=== PATIENT | male | born 1950 | race Caucasian/White ===

== ENCOUNTER → 2023-04-06 17:00 | Outpatient (REF) | payer OTHER, SELFPAY ==
[2023-04-06 19:19] LABS: % Basophils 0.4 % (0-2); % Eosinophils 1.3 % (0-6); % Immature Granulocytes 0.2 % (0-0.5); % Lymphocytes 15.2 % (20.5-51.1); % Monocytes 7.5 % (1.7-9.3); % Neutrophils 75.4 % (42.2-75.2); Absolute Eosinophils 0.1 10^3/uL (0-0.7); Absolute Lymphocytes 1.4 10^3/uL (1.2-3.4); Absolute Monocytes 0.7 10^3/uL (0.1-0.6); Absolute Neutrophils 6.8 10^3/uL (1.4-6.5); Hematocrit 44.4 % (39.0-52.0); Hemoglobin 14.5 g/dL (13.0-18.0); Mean Corp Hgb Conc. 32.7 g/dL (33.0-37.0); Mean Corpuscular Hgb 31.4 pg (27.0-31.0); Mean Corpuscular Volume 96.1 fL (80.0-94.0); Mean Platelet Volume 9.4 fL (7.4-10.4); Nucleated Red Blood Cells % 0 % (-); Platelet Count 262 10^3/uL (130-400); Red Blood Cell Count 4.62 10^6/uL (4.70-6.10); Red Cell Dist. Width 12.5 % (11.5-14.5)
[2023-04-06 19:37] LABS: ALT (SGPT) 21 U/L (0-50); AST (SGOT) 31 U/L (17-59); Albumin 4.8 g/dl (3.5-5.0); Alkaline Phosphatase 68 U/L (38-126); Blood Urea Nitrogen 25 mg/dl (9-20); Carbon Dioxide 30 mmol/L (22-30); Chloride 98 mmol/L (98-107); Glucose 103 mg/dl (70-99); HDL Cholesterol 54 mg/dl; LDL Cholesterol, Calculated 72 mg/dl; Potassium 4.9 mmol/L (3.5-5.1); Sodium 136 mmol/L (135-145); Total Cholesterol 139 mg/dl (50-199); Triglyceride 67 mg/dl (10-149); Very Low Density Lipoprotein 13 mg/dl (0-30); eGFR > 60.00
[2023-04-06 20:07] LABS: TSH 1.26 uIU/ml (0.47-4.68)
[2023-04-07 09:18] LABS: Glycohemoglobin (HgbA1c) 6.1 % (4.0-5.6)
== END ==
LOC: CLAB 17:00
PROVIDERS: ATTENDING PHYSICIAN Family Medicine
DX: E11.69 Type 2 diabetes mellitus with other specified complication (principal); E78.5 Hyperlipidemia, unspecified; Z12.5 Encounter for screening for malignant neoplasm of prostate
CPT/HCPCS: 36415; 80053; 80061; 83036; 84443; 85025; G0103

== ENCOUNTER → 2023-07-04 13:51 | Outpatient (REF) | payer OTHER, SELFPAY | LOC: RAD 13:51 | PROVIDERS: ATTENDING PHYSICIAN Physician Assistant Medical; FAMILY PHYSICIAN Family Medicine | DX: M25.561 Pain in right knee (principal) | CPT/HCPCS: 73564 ==

== ENCOUNTER 2023-10-15 07:34 | Inpatient (IN) | payer OTHER, SELFPAY ==
[2023-10-15] VITALS (84 sets, daily range): BP systolic 54–135; BP diastolic 43–122; BMI 28.0; BMI 28.6
[2023-10-15] MEDS: ZOFRAN 4 MG IV (04:22)
[2023-10-15] MEDS: MORPHINE SULFATE 4 MG IV ×2 (04:23→05:35)
[2023-10-15 04:26] LABS: % Basophils 0.2 % (0-2); % Immature Granulocytes 0.7 % (0-0.5); % Lymphocytes 2.6 % (20.5-51.1); % Monocytes 3.4 % (1.7-9.3); % Neutrophils 93.1 % (42.2-75.2); Absolute Basophils 0.1 10^3/uL (0-0.2); Absolute Immature Granulocytes 0.1 10^3/uL (0-0.05); Absolute Lymphocytes 0.5 10^3/uL (1.2-3.4); Absolute Monocytes 0.7 10^3/uL (0.1-0.6); Hematocrit 46.4 % (39.0-52.0); Hemoglobin 15.9 g/dL (13.0-18.0); Mean Corp Hgb Conc. 34.3 g/dL (33.0-37.0); Mean Corpuscular Hgb 30.9 pg (27.0-31.0); Mean Corpuscular Volume 90.3 fL (80.0-94.0); Mean Platelet Volume 9.2 fL (7.4-10.4); Nucleated Red Blood Cells % 0 % (-); Platelet Count 280 10^3/uL (130-400); Red Blood Cell Count 5.14 10^6/uL (4.70-6.10); Red Cell Dist. Width 12.6 % (11.5-14.5); White Blood Cell Count 20.4 10^3/uL (4.8-10.8)
[2023-10-15 04:38] LABS: AST (SGOT) 50 U/L (17-59); Albumin 4.6 g/dl (3.5-5.0); Alkaline Phosphatase 131 U/L (38-126); Blood Urea Nitrogen 39 mg/dl (9-20); Calcium 9.8 mg/dl (8.4-10.2); Carbon Dioxide 18 mmol/L (22-30); Chloride 99 mmol/L (98-107); Estimated Creatinine Clearance 50 ml/min; Glucose 165 mg/dl (70-99); Lipase 136 U/L (23-300); Potassium 4.5 mmol/L (3.5-5.1); Sodium 141 mmol/L (135-145); Total Bilirubin 1.7 mg/dl (0.2-1.3); Total Protein 7.2 g/dl (6.3-8.2); eGFR 49.16
[2023-10-15 04:40] LABS: Lactic Acid 7.6 mmol/L (0.7-2.0)
[2023-10-15 04:41] LABS: Urine Albumin Negative (Neg - Trace); Urine Bilirubin Negative (Negative); Urine Character Clear (Clear); Urine Color Yellow; Urine Glucose Negative (Negative); Urine Ketone Negative (Negative); Urine Leukocyte Negative (Negative); Urine Nitrite Negative (Negative); Urine Occult Blood Negative (Negative); Urine Urobilinogen Negative (Neg - 1+)
--- NOTE | 2023-10-15 04:41 | ED.GENMED ---
History of Present Illness
General
Chief Complaint: Abdominal Pain
Source: patient and ambulance crew
Exam Limitations: none
Time Seen by Provider: 10/15/23 04:06
Nursing documentation reviewed up to this point in time: agreed with
History of Present Illness
History of Present Illness:
This is a 73-year-old gentleman with history of hypertension, pod-yqtdwek-qsgmxwoir diabetes, atrial fibrillation, maintained on Eliquis. He complains of constipation having not passed a bowel movement for the past 3 days which is unusual for him.
He took a laxative yesterday and yesterday evening around 9 to 10 PM he developed crampy generalized lower abdominal pain that has gotten progressive throughout the night accompanied with nausea, several episodes of vomiting. He feels that urge to
pass a bowel movement but unable to do so. He denies dysuria and urgency and or hematuria. He has been voiding small amounts of clear urine but denies a sense of difficulty urinating. He denies back pain or flank pain, no chest pain, no shortness
of breath nor cough, no fever no chills but does admit to intermittent lightheadedness this morning. He has not taken anything for his discomfort and no history of similar episodes in the past.
He arrives via EMS, noted to be hypotensive prehospital with systolic blood pressure of 80. IV access and IV fluids initiated prehospital.
Noted to be in A-fib with rapid ventricular response. Patient denies palpitations. He states he is normal rhythm is normal sinus rhythm.
Prior abdominal surgery of appendectomy at age 7.
Past History
Past History
ED Past Medical History: Arrthythmia (Atrial fibrillation), HTN and NIDDM
ED Past Surgical History: Appendectomy (At age 7)
Social History
Tobacco: Non-smoker
Alcohol: None
Drug: None
Personal:
Living: with family
Employment: Retired
Family History
Family History: Other (Noncontributory)
Phy Exam
Physical Exam
Physical Exam:
GENERAL: 73-year-old gentleman appears his stated age, awake and alert, appears in severe distress, intermittently moaning in pain.
EYE: pupils equal and round. Anicteric
NECK: Supple, nontender, no meningismus, no significant adenopathy. No JVD.
ENT: oral mucosa is minimally dry. No rhinorrhea.
CARDIAC: Irregularly irregular, tachycardic at 130, no murmur.
LUNGS: Clear breath sounds bilaterally, no acute respiratory distress, no wheezes/rales/rhonchi
ABDOMEN: Abdomen is distended, mildly firm with exquisite generalized tenderness to palpation. Hypoactive bowel sounds.
NEUROLOGICAL: Alert and oriented x3, no focal neuro deficits.
SKIN: Warm and dry, normal color, skin intact. No rash.
MUSCULOSKELETAL: No C/C/E. peripheral pulses are full and equal b/l. Central and peripheral pulses are full bilaterally. No palpable tenderness.
PSYCH: Moderately anxious related to pain. Cooperative.
Course
Orders/Labs/Results
Orders:
Orders
10/15/23 04:03
Electrocardiogram (*1) Urgent
Reason for Study: Other
Other Reason for Exam: Respiratory Distress
Cardiac Monitoring- Treatment ONCE
IV Insert/Care/Rem.- Treatment PRN
10/15/23 04:04
EKG- Treatment ONCE
10/15/23 04:17
Morphine Sulfate 4 mg .ROUTE .STK-MED ONE
Ondansetron Injectable [Zofran] 4 mg .ROUTE .STK-MED ONE
10/15/23 04:18
Complete Blood Count/With Diff Urgent
Comprehensive Metabolic Panel Urgent
Lactate Level [Lactic Acid] Urgent
Lipase Urgent
Troponin I Urgent
10/15/23 04:22
Ondansetron Injectable [Zofran] 4 mg IV NOW STA
10/15/23 04:23
Morphine Sulfate 4 mg IV NOW STA
10/15/23 04:31
CT Abd/pelvis W Iv Cont Urgent
Comment:
Reason For Exam: severe gen lower abd pain, N/V
10/15/23 04:32
0.9% Sodium Chloride 1000 ml [Nss] 2,000 ml IV BOLUS
10/15/23 04:33
Urinalysis Reflex To Culture Urgent
Date Specimen was Collected: 10/15/23
Time Specimen was Collected: 04:32
10/15/23 05:30
0.9% Sodium Chloride 1000 ml [Nss] 1,000 ml IV BOLUS
Morphine Sulfate 4 mg IV NOW STA
10/15/23 05:43
Blood Culture Urgent
JONAS Source: Blood/Venous
Specimen Description:
10/15/23 06:08
Aztreonam [Azactam] 2,000 mg IV NOW STA
MetroNIDAZOLE 500 MG/100 ML [Flagyl 500 mg] 100 ml IV NOW
10/15/23 06:13
Sterile Water [Sterile Water For Injection] 20 ml .ROUTE .[facility]
Abnormal Lab Results
10/15/23
04:18
WBC 20.4 H 10^3/uL
(4.8-10.8)
Abs Immat Gran (auto) 0.1 H 10^3/uL
(0-0.05)
Absolute Neuts (auto) 19.0 H 10^3/uL
(1.4-6.5)
Absolute Lymphs (auto) 0.5 L 10^3/uL
(1.2-3.4)
Absolute Monos (auto) 0.7 H 10^3/uL
(0.1-0.6)
Immature Gran % 0.7 H %
(0-0.5)
Neutrophils % 93.1 H %
(42.2-75.2)
Lymphocytes % 2.6 L %
(20.5-51.1)
Carbon Dioxide 18 L mmol/L
(22-30)
BUN 39 H mg/dl
(9-20)
Creatinine 1.5 H mg/dL
(0.7-1.3)
Glucose 165 H mg/dl
(70-99)
Lactic Acid 7.6 H* mmol/L
(0.7-2.0)
Total Bilirubin 1.7 H mg/dl
(0.2-1.3)
Alkaline Phosphatase 131 H U/L
(38-126)
10/15/23 04:18
10/15/23 04:18
Vital Signs
Initial and Last Documented VS:
Initial Vital Signs
BP
76/59
10/15/23 04:04
Last Documented Vital Signs
Temp Pulse Resp BP Pulse Ox
98.4 F 132 21 101/85 95
10/15/23 04:05 10/15/23 06:01 10/15/23 06:01 10/15/23 06:01 10/15/23 06:01
MDM/Problems Addressed
Differential Diagnosis Includes:
Concern for ischemic bowel, small bowel obstruction, perforated viscus, cholecystitis, diverticulitis, bladder outlet obstruction
With hypotension, other consideration is abdominal aortic aneurysm, aortic dissection however patient has had no back pain, peripheral pulses are full and equal bilaterally.
Monitoring EKG shows atrial fibrillation with rapid ventricular response. Unclear as to onset as patient denies palpitations. A-fib with RVR may be adding to hypotension which thus far has improved somewhat with IV fluid resuscitation.
He is afebrile but must consider sepsis as well.
Will check labs including lactic acid. Consider blood culture.
Will medicate for pain and plan for stat CT abdomen pelvis with IV contrast.
Chronic conditions affecting care: DM, HTN and Arrhythmia
*Pulse Oximetry
Patient hypoxic: no
*EKG
Interpreted by ED Provider?: Yes
Interpretation: abnormal
Comparison EKG: changes noted (Atrial fibrillation with rapid ventricular response has replaced normal sinus rhythm noted on EKG May 2016)
Rate: tachycardiac
Rhythm: a-fib
[place]: normal axis
Interval: normal interval
QRS Pattern: normal QRS
Ischemia: non-specific ST changes
*Supervisor Painting Interpretation
Rate: tachycardiac
Interpretation: abnormal
Rhythm: a-fib
*Critical Care Note
Total Time (30-74mins, 75-104mins- exclusive of procedures): 50
comment:
Critical care statement: A total of 50 minutes of critical care time was provided for this patient. This includes management of unstable vital signs, evaluation of the patient at bedside, reviewing the patient's pertinent medical records, discussion
with consultants, review of old EKGs and review of pertinent medical records. This time with separate from time utilized to perform the aforementioned documented procedures
Update Note
Update Note:
After 2 L of IV normal saline, blood pressure is markedly improved, A-fib persist but heart rate improved to 110-120.
Patient continues with intermittent, crampy lower abdominal pain, only minimally improved after 2 IV doses of morphine.
Labs are remarkable for significantly elevated white blood cell count of 20, markedly elevated lactic acid of 7.6. Mildly elevated bilirubin and alkaline phosphatase, all other LFTs within normal limits. Normal lipase. Troponin 0.018.
Creatinine elevated at 1.5, trended up from previous 0.7�0.8.
CAT scan reviewed by myself shows severe stercoral colitis but no definitive evidence of free air/perforation and no evidence of volvulus. Awaiting radiologist CT report.
Due to leukocytosis and lactic acidosis, concern for sepsis, will initiate IV antibiotics. Patient reports penicillin allergy thus we will initiate aztreonam and metronidazole. Consider adding vancomycin as well.
Blood cultures obtained.
Will plan to admit to hospitalist service. Will consult surgery as needed.
ED Attending Note
-
Portions of this chart may have been created with voice recognition software.� Occasional wrong word or��sound alike� substitutions may have occurred due to the inherent limitations of voice recognition software.
Discharge Plan
Departure
Patient Disposition: Admit
Date of Disposition: 10/15/23
Time of Disposition: 06:10
Admit to: IMU
Admit to doctor: [facility]
Presentation/result/management discussed w/ accepting MD/DO: Hospitalist
Condition: Serious
Discharge Problem:
severe stercoral colitis, Sepsis, AFIB with RVR
Prescriptions:
No Action
albuterol sulfate 1 PUFF HFA aerosol inhaler
1 puff inhalation R Q4HPRN PRN (Reason: sob)
Lisinopril
1 tab PO DAILY
Patient Comments:
unknown strength
albuterol sulfate 1 PUFF HFA aerosol inhaler
1 puff inhalation R Q4HPRN PRN (Reason: dyspnea) Qty: 1 2RF
Referrals:
UNKNOWN - PT NOT,INTERVIEWE [Family Provider] -
Interventions
Interventions:
*Risk Screen - Suicide Last Done: 10/15/23 04:05
*General Assessment Last Done: 10/15/23 04:05
*Neglect/Abuse Screening Last Done: 10/15/23 04:05
ED- Fall Risk Assessment Last Done: 10/15/23 04:05
*ED COVID-19 Vaccine History Last Done: 10/15/23 04:05
[place]-Hqlkpk-Ahndkiehlh Assessment Last Done: 10/15/23 04:30
Discharge Date and Time
Print Language: MOHAWK
[2023-10-15 04:50] LABS: Troponin I 0.018 ng/ml
[2023-10-15] MEDS: NSS 2000 IV (05:00)
[2023-10-15 05:01] LABS: ALT (SGPT) < 30 U/L (0-50)
[2023-10-15] MEDS: NSS 1000 IV ×2 (05:35→07:17)
[2023-10-15] MEDS: AZACTAM 2000 MG IV (06:20)
[2023-10-15] MEDS: FLAGYL 500 MG 100 IV ×3 (06:25→23:09)
[2023-10-15] MEDS: SUBLIMAZE 50 MCG IV ×5 (06:45→21:16)
--- NOTE | 2023-10-15 07:14 | HPS.HSE ---
Family Physician
-
Family Physician: INTERVIEWE UNKNOWN - PT NOT
Chief Complaint
-
Abd Pain / Constipation
History of Present Illness
Patient is a 73y M with PMH significant for A-Fib, hypertension and DM-II who presents to ED complaining of constipation and abdominal pain. Patient states that he has not had a BM in the past 3-4 days. He reports some issues with constipation
'off-and-on' over the past month or so. He has been taking OTC stool softeners and Senna with varying efficacy. His last BM was normal appearing. He denies any black or bloody stools. No small caliber / 'pebble-like' stools.
This evening around 10 PM, patient developed onset of lower abdominal discomfort. Shortly thereafter he had nausea / vomiting.
He initially declined ED evaluation to his ; however, his symptoms worsened throughout the night. He had waves of severe pain in the lower abdomen / suprapubic region.
He had additional episodes of non-bloody emesis at home. Ultimately EMS was called and patient was brought to the ED for further evaluation.
Patient was hypotensive on arrival which initially improved with IVF replacement.
He was noted to be in A-Fib with RVR.
Patient is in significant discomfort in the ED with intermittent severe pain and nausea.
He denies any prior history of similar symptoms.
Medical History
Past Medical History
Past Medical History: Reports Other
Additional Past Medical History:
Paroxysmal Atrial Fibrillation
Hypertension
DM-II
ASCVD / PAD
COPD
BPH
Lyme Arthritis (current)
Past Surgical History: Reports Other
Additional Past Surgical History:
Appendectomy (Age 7)
Social History
Tobacco: Former Smoker (Quit smoking 10-15 years ago. Approx 40 pack years total use.)
Alcohol: Occasional
Drug: None
Personal:
Living: With Family
Family History
Family History: Not pertinent
Allergies / Home Medications
Allergies reflects when Allergies were last updated in [employer].
Home Medications with original date entered in [employer]
Allergy/Medication List:
Allergies
Allergy/AdvReac Type Severity Reaction Status Date / Time
Penicillins Allergy Unknown Verified 10/15/23 04:04
Home Medications
albuterol sulfate 90 mcg/actuation aerosol inhaler 2 puff inhalation Q6H PRN SOB 10/15/23
apixaban 5 mg tablet (Eliquis) 5 mg PO BID 10/15/23
doxycycline hyclate 100 mg tablet 100 mg PO BID 10/15/23
lisinopril 20 mg-hydrochlorothiazide 25 mg tablet 1 tab PO DAILY 10/15/23
metformin 500 mg tablet 500 mg PO BID 10/15/23
tamsulosin 0.4 mg capsule 0.4 mg PO DAILY 10/15/23
Review of Systems
-
History Source: Patient
A 12 point ROS was completed and negative except as noted: Yes
Constitutional: Denies Fever or Chills
EENT: Denies Sore Throat
Respiratory: Denies Cough or Trouble Breathing
Cardiac: Denies Chest Pain or Palpitations
Abdomen/GI: Reports Abdominal Pain, Nausea, Vomiting and Constipated; Denies Diarrhea, Bloody Stools or Black Stools
: Denies Dysuria, Frequency or Flank Pain
Musculoskeletal: Reports Joint Pain (R knee pain / swelling.); Denies Edema
Neurological: Denies Dizzy or Headache
Physical Exam
Vital Signs
Vital Signs
Temp Pulse Resp BP Pulse Ox
98.4 F 126 19 99/76 95
10/15/23 04:05 10/15/23 06:15 10/15/23 06:15 10/15/23 06:15 10/15/23 06:15
Physical Exam
General: Other (73y M in moderate distress due to abdominal pain.)
HEENT: Other (Dry MM. Neck supple.)
Respiratory: Other (Decreased at bases - otherwise clear.)
Cardiac: S1/S2, Irregular Rhythm and Tachycardia; No Murmur
GI: Other (Abdomen is distended. Bowel sounds are appreciated. Diffusely tender - but mostly in the lower abdomen / suprapubic region.)
Genito-urinary: Other (Celaya in place with small volume of tea-colored urine in the device)
Musculoskeletal: No Clubbing, No Cyanosis and No Edema
Neuro: AO x 3
Laboratory Results
-
10/15/23 04:18
10/15/23 04:18
Laboratory Results
Lactic Acid 7.6 mmol/L (0.7-2.0) H* 10/15/23 04:18
Total Bilirubin 1.7 mg/dl (0.2-1.3) H 10/15/23 04:18
AST 50 U/L (17-59) 10/15/23 04:18
ALT < 30 U/L (0-50) 10/15/23 04:18
Alkaline Phosphatase 131 U/L (38-126) H 10/15/23 04:18
Troponin I 0.018 ng/ml 10/15/23 04:18
Lipase 136 U/L (23-300) 10/15/23 04:18
Impression/Plan
-
A/P: Patient is a 73y M with PMH significant for A-Fib, HTN and DM-II who presents to ED complaining of abdominal pain and constipation.
Stercoral Colitis / Obstipation
Lactic Acidosis secondary to the above
Sepsis secondary to the above
- Admit to ICU for further evaluation and treatment.
- Patient in significant discomfort in the ED with lactate initially 7.6, WBC = 20k.
- Patient presents with leukocytosis, tachycardia, tachypnea and hypotension with clinical / radiographic findings c/w stercoral colitis.
- Life threatening organ dysfunction as noted by lactic acidosis and JOSE.
- Manually disimpacted in the ED for moderate amount of small, hard, round, dark stools. Pos dark red blood outside of stool.
- Rectal vault emptied of stool - patient unable to advance any additional stools.
- CT done in the ED with no findings other than constipation. No evidence of perforation, etc.
- Empiric IV abx with ceftriaxone and Flagyl for now.
- Aggressive bowel regimen.
- Surgery consulted for further evaluation.
- IVF support +/- pressors as needed to maintain perfusion.
- Follow serial lactate.
JOSE
- SCr = 1.5 compared to baseline of 0.8.
- Likely pre-renal + component of ATN due to hypotension / acidosis / poor perfusion.
- Celaya placed in the ED for small amount of tea colored urine.
- Maintain Celaya.
- IVF support +/- pressors to maintain perfusion.
- Follow for improvement in renal function.
Paroxysmal Atrial Fibrillation with Rapid Ventricular Response
- Patient in A-Fib with variable rates - at times into the 150s.
- Not on any chronotropic or antiarrhythmic meds as an outpatient.
- IV Lopressor PRN if needed for rate control.
- Volume replacement + pain control and follow for improvement.
- Hold Eliquis (last dose was 10/13 PM).
- Monitor on telemetry.
DM-II
- Stable. Hold metformin acutely - especially given JOSE and lactic acidosis.
- Follow glucose and cover with SSI as needed.
- Update A1C.
Benign Hypertension
- Currently hypotensive.
- Hold BP medications.
BPH
- Stable. Celaya in place currently.
COPD without Acute Exacerbation
- Stable. No wheezing on exam.
- Albuterol PRN.
Lyme Arthritis
- Patient with recent R knee pain and swelling. Diagnosed with Lyme arthritis.
- Started on doxycycline about 4 days ago.
- On IV ceftriaxone for now. Resume doxy after acute episode to complete 21 days total therapy.
DVT Prophylaxis: SCDs
Code Status: Full
[2023-10-15 07:46] LABS: Lactic Acid 7.4 mmol/L (0.7-2.0)
[2023-10-15] MEDS: LR 1000 IV ×3 (08:39→20:45)
[2023-10-15] MEDS: DILAUDID 0.5 MG IV (08:39)
--- NOTE | 2023-10-15 08:47 | PTCARENOTE ---
Rec'd patient from ED around 0800. Patient alert and oriented. Moaning out in pain. C/o worsening abdominal pain. Abdomen firm/tender/distended. Hypo BS. Dilaudid administered as ordered. Afib with rate in the 110-130's on tele monitor. Pulse ox
93-94% on 4L nc. Lung sounds cta. Celaya in place- output tea colored. LR infusing through peripheral INT. Vitals stable. BP soft; Levophed not initiated (MAP>65). at bedside.
[2023-10-15] MEDS: PROTONIX IV 40 MG IV (08:56)
[2023-10-15] MEDS: NSS (PRESERVATIVE FREE) 10 ML IV (08:56)
--- NOTE | 2023-10-15 09:08 | CON.INTV ---
Consultation
Consultation Request
Date/Time Consultation Requested: 10/15/2023
Date/Time Consultation Performed: 10/15/2023 - 0844
Requesting Provider: Dr. Paz
Performing Provider: Dr. Chambers
Reason for Consultation: Stercoral colitis/sepsis/tachycardia
Medical History
-
Chief Complaint: Abdominal pain, N/V
History of Present Illness:
73-year-old male former tobacco smoker with past medical history of A-fib on Eliquis, hypertension, DM type II, BPH, history of COPD and allergic rhinitis who presents with lower abdominal pain, nausea/vomiting. Symptoms started last night and he
reports constipation for few days. Last BM about 3 days ago. Initial vitals in the ER showed he was in rapid A-fib with VR of 139 bpm, afebrile to 98.4 �F, breathing at 27 breaths minute, hypotensive to 76/59, and SpO2 93% on room air. EKG
confirmed A-fib with RVR. Labs showed leukocytosis to 20.4, creatinine 1.5, lactate 7.4, and T. bili 1.7. Blood culture collected. CT abdomen/pelvis showed fecal impaction without evidence for bowel obstruction. CXR showed retrocardiac
opacification concerning for left lower lobe pneumonia. He was given aztreonam/Flagyl in the ER, fentanyl, morphine, total of 3 L NS 0.9% and Zofran. He was admitted to the ICU for close monitoring with critical care services consulted for
additional management/recommendations.
When I saw the patient this morning, he was in acute distress with abdominal pain/distention, and awake/alert answering all questions appropriately. He was on 6 L/min nasal cannula saturating 94%. Heart rate was labile between 120�140, and BP
95/66. He was not on vasopressors at the time. Bowel sounds are positive. He denies chest pain, SOB, ALBERTO, diarrhea, fevers or chills.
PMHx: Paroxysmal A-fib on Eliquis, hypertension, DM type II, BPH, history of Lyme disease complicated by arthritis, history of COPD, former tobacco use, allergic rhinitis
PSHx: Appendectomy
Past Medical History
Past Medical History: Other (Above as per HPI)
Past Surgical History: Other (Above as per HPI)
Social History
Tobacco: Former Smoker ([id number] history, quit approximately 15 years ago)
Alcohol: Occasional
Drug: None
Personal:
Living: With Family
Family History
Family History: CAD (Father + brother), Diabetes (Father), Hypertension (Father, mother + brother) and Other (Mother: Dementia)
Allergies / Home Medications
Allergies
Allergy/AdvReac Type Severity Reaction Status Date / Time
Penicillins Allergy Unknown Verified 10/15/23 04:04
Home Medications
�Medication �Instructions �Recorded �Confirmed �Last Taken �Type
albuterol sulfate 90 mcg/actuation 2 puff inhalation Q6H PRN SOB 10/15/23 10/15/23 Unknown History
aerosol inhaler
apixaban 5 mg tablet (Eliquis) 5 mg PO BID Blood Clot 10/15/23 10/15/23 10/14/23 20:00 History
Prevention/Tx
doxycycline hyclate 100 mg tablet 100 mg PO BID Infection 10/15/23 10/15/23 Unknown History
lisinopril 20 1 tab PO DAILY Blood Pressure 10/15/23 10/15/23 Unknown History
mg-hydrochlorothiazide 25 mg tablet
metformin 500 mg tablet 500 mg PO BID Diabetes 10/15/23 10/15/23 Unknown History
tamsulosin 0.4 mg capsule 0.4 mg PO DAILY Urinary Issue 10/15/23 10/15/23 Unknown History
Review of Systems
-
History Source: Patient
All other systems: Negative unless noted
Vitals / Labs / Diagnostic Testing
Vital Signs
Temp Pulse Resp BP Pulse Ox
98.1 F 130 26 86/68 92
10/15/23 08:22 10/15/23 10:28 10/15/23 10:28 10/15/23 10:00 10/15/23 10:28
Lab Data
10/15/23 04:18
10/15/23 04:18
Laboratory Results
10/15/23
09:59
PT 27.1 H
INR 2.52
APTT 40.0 H
Diagnostic Testing:
Physical Exam
-
HEENT: Normocephalic and Anicteric
Cardiovascular: Irregular Rhythm (Irregularly irregular) and Other (Tachycardic)
Respiratory: Wheeze (Occasional end expiratory heard in the anterior lung crenshaw), Rales ([place] upon expiration bilaterally (R >L)), Rhonchi (negative) and Accessory Resp Muscle Use
GI: Soft, Distended, Tender (diffusely) and Other (Hypoactive bowel sounds)
Neurology: Awake, Alert and Tremors (negative)
Skin: Warm and Dry
General: Respiratory Distress (mild), Pain (abdominal), Chills (negative) and Sweats (negative)
Assessment
-
Assessment: 73-year-old male former tobacco smoker with past medical history of A-fib on Eliquis, hypertension, DM type II, BPH, history of COPD and allergic rhinitis who presents with lower abdominal pain, nausea/vomiting. Symptoms started last
night and he reports constipation for few days. Last BM about 3 days ago. Initial vitals in the ER showed he was in rapid A-fib with VR of 139 bpm, afebrile to 98.4 �F, breathing at 27 breaths minute, hypotensive to 76/59, and SpO2 93% on room
air. EKG confirmed A-fib with RVR. Labs showed leukocytosis to 20.4, creatinine 1.5, lactate 7.4, and T. bili 1.7. Blood culture collected. CT abdomen/pelvis showed fecal impaction without evidence for bowel obstruction. CXR showed retrocardiac
opacification concerning for left lower lobe pneumonia. He was given aztreonam/Flagyl in the ER, fentanyl, morphine, total of 3 L NS 0.9% and Zofran. He was admitted to the ICU for close monitoring with critical care services consulted for
additional management/recommendations.
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
Impression:
#Stercoral colitis with severe constipation s/p disimpaction in the ER
#Abdominal pain due to above
#Septic shock due to above in the setting of left lower lobe CAP
#Lactic acidosis
#CAP involving left lower lobe
#Acute respiratory failure with hypoxia on supplemental oxygen
#JOSE
#A-fib with RVR
#Elevated INR
#Transaminitis with elevated T. bili + elevated ALP
#Abnormal urinalysis with +1 leukocyte esterase
#Hypertension
#Reported history of COPD
#Former tobacco use disorder with [id number] history, quit about 15 years ago
Plan:
- Continue with aggressive bowel regimen
- IVF - currently on LR at 125cc/hr
- Pain control
- Maintain MAP>65
- Colorectal surgery on board, recommendations appreciated
- Not currently a surgical candidate, continue to closely monitor with serial abdominal exams
- Trend lactate until <2mmol/L
- If lactate continues to rise with worsening hypotension, he will need to go to the OR for ex-lap
- If no bowel movement by later today, give another enema this early afternoon
- Continue with broad-spectrum antibiotics
- Currently on Flagyl/ceftriaxone; will broaden to cefepime/flagyl; low threshold to start micafungin
- Heart rate control with goal HR <110
- May need amiodarone if HR remains uncontrolled
- Replete electrolytes with K>4, Mg>2
- Maintain euglycemia with goal BG 140-180
- Trend LFTs
- Renally dose all meds/Abx
- Trend sCr and UOP
- Celaya catheter in place
- Continue supplemental oxygen to maintain SpO2 88-95%
- Given Hx of COPD with mild wheezing on exam, start xopenex and atrovent TID with prn nebulized bronchodilators for breakthrough symptoms
- DVT ppx: SCDs for now given his elevated INR; hold eliquis for now; may need Kcentra if goes to OR
Critical care statement: A total of 38 minutes of critical care time was provided for this patient today. This includes management of unstable vital signs, evaluation of the patient at bedside, reviewing the patient's pertinent medical records
including radiographs, microbiology, laboratory evaluations, and discussion with primary team, consultants, pharmacy, nutrition, physical therapy, case management, charge nurse, critical care nursing, and respiratory therapy.
Data:
CT abdomen/pelvis with IV contrast 10/15/2023:
Findings concerning for fecal impaction.
Large amount of fecal material throughout the colon.
Bilateral too small to characterize hypodense renal lesions likely benign cysts.
Severe atherosclerotic vascular disease.
Solid noncalcified left lower lobe pulmonary nodule. Continued surveillance recommended.
CXR 10/15/2023: Findings suggesting mild left lower lobe pneumonia.
--- NOTE | 2023-10-15 09:11 | W.PN.UPDATE ---
Update Note
Progress Note Update
Patient was admitted a couple of hours ago by Dr. Bocanegra for severe progressive constipation to the state of obstipation causing stercoral colitis with sepsis and hypotension. Had some disimpaction in the ED. Currently on bowel regimen along with
antibiotics. Colorectal surgery consulted.
Will consult GI for evaluation of constipation.
[2023-10-15] MEDS: COLACE 100 MG PO (09:18)
[2023-10-15] MEDS: MIRALAX 17 GRAMS PO (09:18)
[2023-10-15] MEDS: FLEET MINERAL OIL ENEMA 133 ML RECTAL (09:51)
[2023-10-15] MEDS: STERILE WATER FOR INJECTION 10 ML IV ×3 (09:51→23:10)
[2023-10-15] MEDS: ROCEPHIN 1000 MG IV (09:51)
[2023-10-15] MEDS: FLUSH (NSS) 1 FLUSH IV ×2 (09:52→10:02)
--- NOTE | 2023-10-15 10:10 | PTCARENOTE ---
Fleet enema given. Smear of burgundy stool observed prior. Patient currently on bedpan. BP soft, 80/60's. HR 120-130's, afib. RR 30. Oxygen increased to 6L nc; pulse ox 91-92%.
[2023-10-15 10:17] LABS: Urine Albumin Trace (Neg - Trace); Urine Bilirubin 2+ (Negative); Urine Character Clear (Clear); Urine Color Brown; Urine Glucose Negative (Negative); Urine Ketone 1+ (Negative); Urine Leukocyte 1+ (Negative); Urine Nitrite Negative (Negative); Urine Occult Blood 2+ (Negative); Urine Specific Gravity 1.015 (<1.030); Urine Urobilinogen 3+ (Neg - 1+)
[2023-10-15 10:23] LABS: INR 2.52; PT 27.1 Sec (11.4-14.6)
[2023-10-15] MEDS: VENTOLIN NEBULES 2.5 MG INH (10:25)
--- NOTE | 2023-10-15 10:25 | PTCARENOTE ---
Patient c/o difficulty breathing. RT contacted.
[2023-10-15 10:27] LABS: Urine Bacteria Moderate (Negative); Urine White Cell 16-20 /HPF (0-5)
[2023-10-15] MEDS: DILAUDID 1 MG IV (10:57)
[2023-10-15] MEDS: SENNA SYRUP 17.2 MG PO (10:57)
[2023-10-15] MEDS: DULCOLAX 10 MG PO (10:57)
[2023-10-15 11:09] LABS: TSH Reflex To Free T4 1.64 uIU/ml (0.47-4.68)
[2023-10-15] MEDS: LEVOPHED 250 IV ×2 (11:18→17:46)
--- NOTE | 2023-10-15 11:21 | PTCARENOTE ---
BP 67/47 with a MAP of 54. Levophed gtt initiated.
[2023-10-15 11:34] LABS: Lactic Acid 8.3 mmol/L (0.7-2.0)
--- NOTE | 2023-10-15 11:36 | CON.GS ---
Consultation
-
Date/Time Consultation Requested: 10/15/23
Date/Time Consultation Performed: 10/15/23914
Performing Provider: Loren Martin
Reason for Consultation: Stercoral Colitis, Lactic Acidosis / Sepsis
Medical History
-
Chief Complaint: abdominal pain
History of Present Illness:
Mr. Younger is a 73 yo male with a h/o copd, niddm, afib (on eliquis with LD 10/13 at 1999) and appendectomy as a child who presents through the ED with constipation x2-3 days and worsening abdominal pain. Fecal disimpaction was preformed in the ED
but without much relief in symptoms. He denies nausea or vomiting. He notes worsening abdominal distention and generalized discomfort. He has been passing flatus but no stools despite enemas. He has been afebrile with tachycardia.
Past Medical History
Past Medical History: Arrhythmias (afib), COPD, HTN, NIDDM and Other (bph, PAD)
Past Surgical History: Appendectomy
Social History
Tobacco: Former Smoker
Alcohol: Occasional
Personal:
Living: With Family
Family History
Family History: Reviewed & Not Pertinent
Allergies / Home Medications
Allergy/AdvReac Type Severity Reaction Status Date / Time
Penicillins Allergy Unknown Verified 10/15/23 04:04
�Medication �Instructions �Recorded �Confirmed �Type
albuterol sulfate 90 mcg/actuation 2 puff inhalation Q6H PRN SOB 10/15/23 10/15/23 History
aerosol inhaler
apixaban 5 mg tablet (Eliquis) 5 mg PO BID Blood Clot 10/15/23 10/15/23 History
Prevention/Tx
doxycycline hyclate 100 mg tablet 100 mg PO BID Infection 10/15/23 10/15/23 History
lisinopril 20 1 tab PO DAILY Blood Pressure 10/15/23 10/15/23 History
mg-hydrochlorothiazide 25 mg tablet
metformin 500 mg tablet 500 mg PO BID Diabetes 10/15/23 10/15/23 History
tamsulosin 0.4 mg capsule 0.4 mg PO DAILY Urinary Issue 10/15/23 10/15/23 History
Review of Systems
-
History Source: Patient and Family
A 10 point review of systems was completed, and was negative except as per HPI.
Physical Exam
Vital Signs
Temp Pulse Resp BP Pulse Ox
98.1 F 117 34 67/47 86
10/15/23 08:22 10/15/23 11:16 10/15/23 11:16 10/15/23 11:16 10/15/23 11:16
10/14/23 10/15/23 10/16/23
06:59 06:59 06:59
Actual Weight 96.2 kg 98.4 kg
Body Mass Index (BMI) 28.6
Lab Results
10/15/23 04:18
10/15/23 04:18
WBC 20.4 10^3/uL (4.8-10.8) H 10/15/23 04:18
Hgb 15.9 g/dL (13.0-18.0) 10/15/23 04:18
Hct 46.4 % (39.0-52.0) 10/15/23 04:18
Plt Count 280 10^3/uL (130-400) 10/15/23 04:18
Abs Immat Gran (auto) 0.1 10^3/uL (0-0.05) H 10/15/23 04:18
Neutrophils % 93.1 % (42.2-75.2) H 10/15/23 04:18
Physical Exam
General: Pain; Negative Comfortable
HEENT: Moist Mucous Membranes
Respiratory: Non Labored Respirations
GI: Soft, Tender (generalized) and Distended
Genito-urinary: Bloody Urine (tea colored)
Skin: Warm and Dry
Neuro: Awake, Alert and AO x 3
Data Reviewed
-
CT Scan: Image Personally Visualized and interpreted, Report Reviewed by me, Discussed with Physician, Discussed with Nurse, Discussed with Patient and Discussed with Family
Labs: Labs Reviewed by me, Discussed with Nurse and Discussed with Family
Old Records: Reviewed
Assessment / Plan
-
73 yo male with h/o copd, niddm, afib (on eliquis with LD 10/13 at 1999) and appendectomy as a child who presents through the ED with constipation x2-3 days and worsening abdominal pain. He was disimpacted in the ED but still with pain and
distention. Tachycardic with some hypotension. Leukocytosis present on admission and he was initiated on IV abx. CT imaging reviewed with significant stool burden obstipation and impaction but no evidence of stercoral colitis or perforation on
imaging.
--Bowel regimen
--Keep NPO
--C/W abx
--ICU management as per primary team
--- NOTE | 2023-10-15 11:42 | W.PN.UPDATE ---
Update Note
Progress Note Update
Called the bedside, patient having worsening hypotension, abdominal pain and distension and tachycardia. He is also less responsive but still answering questions and protecting airway. He is on 6L/min saturating 93%. Ic [facility] surgery, spoke with
Dr. Martin. He is coming now to evaluate the pt. Will insert NGT; pt already has silva catheter. Getting stat AXR to assess for free air. Pt will get Kcentra as he is on Eliquis. Awaiting OR. I discussed all this with the bedside RN and
primary hospitalist, Dr. Chan.
[2023-10-15] MEDS: NEO-SYNEPHRINE 250 IV ×3 (11:44→21:43)
[2023-10-15] MEDS: NSS 250 IV (11:47)
--- NOTE | 2023-10-15 11:55 | W.SUR.PREOP ---
Pre-Operative Surgical Note
-
Unfortunately patient has continued to deteriorate and clinically worsened now on pressors. Lactate increasing. Peritoneal on exam.
Will plan for urgent exploratory laparotomy, bowel resection, possible open abdomen
Will have the ICU reversed him with Kcentra, place an NG tube
Risks/Benefits/Alternatives, expected postoperative course and possible complications (bleeding, infection, injury to surrounding structures, acute/chronic pain, open abdomen, mortality) discussed at length. Patient's wishes to proceed with
surgery. All questions answered. Consent obtained.
I spent roughly 60 minutes in total for the care of this patient today including direct patient care and counseling, reviewing labs, imaging, coordination of care, as well as documentation.
I have examined this patient prior to the performance of the scheduled procedure.
The patient's condition is unchanged from the time of the current History and
Physical and the patient is able to undergo the scheduled procedure.
--- NOTE | 2023-10-15 11:58 | VATNOTE ---
PICC order noted. Spoke with ASSISTANT PROSECUTING ATTORNEY who states patient planned for emergent OR case. Additional PIV placed by the VAT RN. Discussed with Executive Vice President And Chief Operating Officer MD who states PICC can be held at this time, with plan for TLC to be placed in OR or post-op in ICU.
[2023-10-15] MEDS: MAXIPIME 2000 MG IV ×2 (12:07→23:09)
[2023-10-15] MEDS: KCENTRA 180 UNIT IV (12:07)
--- NOTE | 2023-10-15 12:11 | CON.GI ---
Consultation
-
Date/Time Consultation Requested: 10/15/23 at 10am
Date/Time Consultation Performed: 10/15/23 at 11:30
Requesting Provider: Dustin
Performing Provider: quintin
Reason for Consultation: abd pain, constipation
Medical History
Chief Complaint / HPI
Chief Complaint: abd pain
History of Present Illness:
This patient is a 73-year-old man with a history of atrial fibrillation, hypertension and diabetes who had 1 day of abdominal pain with 3 to 4 days of constipation. His abdominal pain had worsened in intensity over the night and he did show up to
the emergency room in the morning. At that time he was found to have atrial fibrillation with a rapid rate. He also had some nausea and his lower abdominal pain worsened. He stated he had not had a bowel movement in 3 to 4 days to the ER staff.
I did see him in the ICU and at that time he was not responsive with tachypnea and abdominal distention. He also was tachycardic and an abdominal x-ray had been taken. No further history could be obtained.
Past Medical History
Past Medical History: Other (Atrial fibrillation, diabetes, peripheral artery disease, COPD)
Past Surgical History: Appendectomy
Social History
Tobacco: Former Smoker
Family History
Family History: Reviewed & Not Pertinent
Allergies / Home Medications
Allergy/AdvReac Type Severity Reaction Status Date / Time
Penicillins Allergy Unknown Verified 10/15/23 04:04
�Medication �Instructions �Recorded
albuterol sulfate 90 mcg/actuation 2 puff inhalation Q6H PRN SOB 10/15/23
aerosol inhaler
apixaban 5 mg tablet (Eliquis) 5 mg PO BID Blood Clot 10/15/23
Prevention/Tx
doxycycline hyclate 100 mg tablet 100 mg PO BID Infection 10/15/23
lisinopril 20 1 tab PO DAILY Blood Pressure 10/15/23
mg-hydrochlorothiazide 25 mg tablet
metformin 500 mg tablet 500 mg PO BID Diabetes 10/15/23
tamsulosin 0.4 mg capsule 0.4 mg PO DAILY Urinary Issue 10/15/23
Review of Systems
-
Unable to obtain full review of systems at this time due to: Other (Currently unresponsive)
Vital Signs
Temp Pulse Resp BP Pulse Ox
98.1 F 117 34 67/47 86
10/15/23 08:22 10/15/23 11:16 10/15/23 11:16 10/15/23 11:16 10/15/23 11:16
Physical Exam
Exam
General: Respiratory Distress
Cardiac: Other (tachycardic)
GI: Non Distended (distended) and Other (could not hear bowel sounds)
Results
WBC 20.4 10^3/uL (4.8-10.8) H 10/15/23 04:18
Hgb 15.9 g/dL (13.0-18.0) 10/15/23 04:18
Hct 46.4 % (39.0-52.0) 10/15/23 04:18
MCV 90.3 fL (80.0-94.0) 10/15/23 04:18
Plt Count 280 10^3/uL (130-400) 10/15/23 04:18
Absolute Neuts (auto) 19.0 10^3/uL (1.4-6.5) H 10/15/23 04:18
PT 27.1 Sec (11.4-14.6) H 10/15/23 09:59
INR 2.52 10/15/23 09:59
APTT 40.0 Sec (23.4-35.0) H 10/15/23 09:59
Sodium 141 mmol/L (135-145) 10/15/23 04:18
Potassium 4.5 mmol/L (3.5-5.1) 10/15/23 04:18
Chloride 99 mmol/L (98-107) 10/15/23 04:18
Carbon Dioxide 18 mmol/L (22-30) L 10/15/23 04:18
BUN 39 mg/dl (9-20) H 10/15/23 04:18
Creatinine 1.5 mg/dL (0.7-1.3) H 10/15/23 04:18
Calcium 9.8 mg/dl (8.4-10.2) 10/15/23 04:18
Total Bilirubin 1.7 mg/dl (0.2-1.3) H 10/15/23 04:18
AST 50 U/L (17-59) 10/15/23 04:18
ALT < 30 U/L (0-50) 10/15/23 04:18
Alkaline Phosphatase 131 U/L (38-126) H 10/15/23 04:18
Lipase 136 U/L (23-300) 10/15/23 04:18
CT scan with large amount of stool
xray: distended colon, stool
Assessment / Plan
-
This patient is a 73-year-old man with a history of atrial fibrillation with rapid rate in the emergency room on [facility] who has 1 day of progressive lower abdominal pain and constipation. His imaging does not suggest a free perforation however I
do worry that he has ischemic bowel either small or large intestine as he has marked decompensation with hypotension, tachycardia, leukocytosis and is now unresponsive with abdominal distention and poor bowel sounds. For now we will do the
following:
1. broad spectrum antibiotics
2. Dr. Martin already has seen him from surgery and I agree he needs to be taken to the OR for diagnosis and management
3. resuscitation needed
4. eliquis held
Data Reviewed
-
Radiology: Image Personally Visualized and interpreted and Report Reviewed by me
CT Scan: Image Personally Visualized and interpreted and Report Reviewed by me
-
-
Thank you for consultation and allowing me to participate in the patient's care. Please call the location analyst GI physician during the after hours with any questions or concerns.
[2023-10-15] MEDS: NOVOLOG FLEXPEN-LOW RESISTANCE SC ×2 (12:16→17:49)
[2023-10-15 12:17] LABS: Hematocrit 52.2 % (39.0-52.0); Hemoglobin 16.4 g/dL (13.0-18.0); Mean Corp Hgb Conc. 31.4 g/dL (33.0-37.0); Mean Corpuscular Hgb 31.1 pg (27.0-31.0); Mean Corpuscular Volume 99.1 fL (80.0-94.0); Mean Platelet Volume 9.3 fL (7.4-10.4); Platelet Count 288 10^3/uL (130-400); Red Blood Cell Count 5.27 10^6/uL (4.70-6.10); Red Cell Dist. Width 12.8 % (11.5-14.5); White Blood Cell Count 13.3 10^3/uL (4.8-10.8)
[2023-10-15 12:28] LABS: AST (SGOT) 71 U/L (17-59); Alkaline Phosphatase 93 U/L (38-126); Blood Urea Nitrogen 47 mg/dl (9-20); Calcium 8.8 mg/dl (8.4-10.2); Carbon Dioxide 17 mmol/L (22-30); Chloride 105 mmol/L (98-107); Estimated Creatinine Clearance 44 ml/min; Glucose 124 mg/dl (70-99); Potassium 5.1 mmol/L (3.5-5.1); Sodium 146 mmol/L (135-145); Total Bilirubin 1.4 mg/dl (0.2-1.3); Total Protein 6.4 g/dl (6.3-8.2)
[2023-10-15 12:31] LABS: Glucose - Point of Care 107 mg/dl (70-99)
[2023-10-15 12:46] LABS: ALT (SGPT) 32 U/L (0-50)
[2023-10-15 12:50] LABS: Fibrinogen 399 MG/DL (199-459)
--- NOTE | 2023-10-15 13:16 | PTCARENOTE ---
Patient transported to OR. Levo/Олег/LR infusing.
[2023-10-15] MEDS: DUONEB INH (13:28)
--- NOTE | 2023-10-15 13:30 | PTCARENOTE ---
Patient assessed by surgical team around 0900 and discussed plan with patient and patient's . Surgical team decision to give enema, in addition to bowel regimen. Fleet enema given at 1000 with no results. Patient continuing to have severe
abdominal pain. Tachycardic, tachypneic and hypotensive. Surgical DIRECTOR BIOLOGY updated. RN notified Seismic Prospecting Supervisor and to bedside to see patient. Additional pain medication and bowel regimen ordered. Around 1100, RN at bedside to administer orders and draw
repeat lactic. Patient alert and communicating with staff. Slightly restless and unable to get comfortable. Moaning and turning side to side in bed. At 1115, BP down to 60/40's with minimal response, shallow breathing, staring off at ceiling.
Levophed gtt initiated. Blood pressure continuing to drop despite increase of Levophed rate. Seismic Prospecting Supervisor and surgical DIRECTOR BIOLOGY notified. Lactic acid increased from 7.4 to 8.3. Abdominal xray, NRB, fluid bolus and Олег gtt ordered. ABX changed from Rocephin
to Maxipime. PICC line ordered, however, decision made to take patient emergently to OR. VAT RN notified and at bedside to place peripheral INT. NGT, Kcentra and labs ordered. Attempted to place NGT. Patient confused and attempting to grab at staff
and tube. Dr. Martin at bedside. Per Dr. Martin, NGT okay to be placed in OR. BP stabilized with Levophed infusing at 30mcg/min, Олег at 140mcg/min and LR @ 125. Mentation slightly improved. Report given to nurse wood veneer taper prior to transportation
to OR.
[2023-10-15 14:16] LABS: B.E. - POC -12.7 mmol/L; Glucose - POC 160 mg/dl (65-99); HCO3 - POC 19 mmol/L (21-29); Hematocrit - POC 40 % PCV (42-52); Hemodilution- POC No; Hemoglobin Calculated - POC 13.4; Ionized Calcium - POC 1.01 mmol/L (1.12-1.27); Lactate - POC 8.13 mmol/L (0.36-0.75); O2 Saturation %Calculated-POC 92.2 5 (92-96); PCO2 - POC 70 mmHg (35-45); PO2 - POC 94 mmHg (80-100); Potassium - POC 4.4 mmol/L (3.6-5.0); Sodium - POC 142 mmol/L (135-145); pH - POC 7.04 (7.35-7.45)
--- NOTE | 2023-10-15 14:31 | PTCARENOTE ---
Spoke with patient's over the phone. Requesting to be called when patient is out of the OR. Made aware she may wait in waiting room or ICU, however, she would prefer to wait at home. Emotional support provided.
[2023-10-15 15:03] LABS: B.E. - POC -10.3 mmol/L; Glucose - POC 156 mg/dl (65-99); HCO3 - POC 20 mmol/L (21-29); Hematocrit - POC 36 % PCV (42-52); Hemodilution- POC No; Hemoglobin Calculated - POC 12.2; Ionized Calcium - POC 1.17 mmol/L (1.12-1.27); O2 Saturation %Calculated-POC 96.2 5 (92-96); PCO2 - POC 66 mmHg (35-45); PO2 - POC 115 mmHg (80-100); Potassium - POC 4.3 mmol/L (3.6-5.0); Sodium - POC 144 mmol/L (135-145); pH - POC 7.09 (7.35-7.45)
--- NOTE | 2023-10-15 16:16 | W.IMMPOSTOP ---
Surgical Immed Post Op Note
-
Primary Surgeon: Sebastian Martin MD
Assisting Surgeon: Justin Willard MD
Direct Support Professional Home Health: DARSHAN Falcon
Pre-op Diagnosis: Acute abdomen
Post-op Diagnosis: Mesenteric ischemia, ischemic Colon
Procedure Performed:
1. Exploratory laparotomy
2. Subtotal colectomy
Anesthesia Type: General
Specimen / Cultures:
1. Subtotal colectomy (in 2 pieces)
Estimated Blood Loss: 73 cc
Complications: None
Operative Findings: Abdomen entered safely via a generous midline incision. We encountered some murky fluid on entry but no pus or enteric contents identified. The descending colon and transverse colon were visibly ischemic, the rest of the small
bowel appeared to be normal. The sigmoid colon for the most part also appeared normal though full of stool. We began by making a window in the mesentery of the sigmoid colon and dividing it with a 100 blue load BARRETT stapler. The abdomen was very
protuberant and the bowel and colon were extremely dilated which made exposure and dissection fairly difficult. Bookwalter was set up to help retract the abdominal wall and improve exposure. Incising the white line of Toldt we were able to
medialized the descending colon up to the splenic flexure and we took the corresponding mesentery along with its staying close to the colon wall. We then entered the lesser sac via the gastrocolic ligament and divided that to the spleen. To help
with manipulation and mobilization we transected the transverse colon and dissected it distally to meet up with her prior dissection and freed the splenic flexure off of the spleen without injury to the underlying vessels or retroperitoneal
structures. At this point Dr. Willard scrubbed into assist with mobilization of the right colon to help expedite this colectomy in this critically ill patient. We incised the white line of Toldt along the ascending colon and freed up the hepatic
flexure. The duodenum was identified and preserved. A window was made in the mesentery of the terminal ileum and the ileum was divided with a stapler fire. We then marched along the mesentery of the right colon to meet our dissection from the
previously transected proximal transverse colon. This part of the specimen was also removed without injury to the underlying viscera. Hemostasis was then achieved, there was some minimal bleeding in the hepatic and splenic flexures which was
controlled with bipolar cautery. The named blood vessels were suture-ligated to ensure hemostasis. The sigmoid colon stump was tagged with a 2-0 Prolene. All sponges and towels were removed and an ABThera wound VAC was placed with good suction to
-100 mmHg. An 18 Swedish NG tube was confirmed to be in good position in the stomach and secured at the nare. The patient was transferred to the ICU intubated and sedated with guarded prognosis. The patient's was updated over the phone.
POST OP PLAN:
Imaging: None
Labs: Routine AM
Diet: NPO. NG tube to low intermittent wall suction.
Analgesia: Per ICU
Neuro/vascular checks: Per ICU
AC/AP: Ok for DVT PPx, hold Eliquis
Activity: Bedrest
Wound/Incisions/Drains: Continue ABThera 10-100 mmHg.
Abx: Given the source was the colon, can switch to Cipro, Flagyl
Dispo: ICU, anticipate return to the OR for second look laparotomy on 10/15 or 10/17/2023 depending on clinical course
[2023-10-15 17:04] LABS: B.E. -9.8 mmol/L; HCO3 17.6 mmol/L (21-28); O2 Saturation % 98.6 % (94-98); PCO2 43 mmHg (35-48); PO2 304 mmHg (83-108); pH 7.22 (7.35-7.45)
[2023-10-15] MEDS: DUONEB 3 ML INH (17:05)
--- NOTE | 2023-10-15 17:16 | PTCARENOTE ---
Rec'd patient from OR at 1620. Patient intubated. Placed on ventilator by RT. A/C 22/600/5/80%. Pulse ox 96%. #8 ett, 22 @ the lip. Lung sounds coarse. Afib on tele monitor. Rate in the 90-110's. Right radial effie in place. Zeroed and transduced.
Correlating with BP cuff. Levophed and Vaso on for MAP>65. VAT contacted for central line. Abdomen assessed with OR staff. Wound vac on as ordered. NGT placed to low intermittent suction per surgical team. at bedside. Emotional support
provided. Repeat labs and ABG sent. Awaiting coags for PICC placement.
[2023-10-15 17:24] LABS: INR 1.46; PT 17.6 Sec (11.4-14.6)
[2023-10-15 17:25] LABS: Hemoglobin 13.6 g/dL (13.0-18.0); Mean Corp Hgb Conc. 33.2 g/dL (33.0-37.0); Mean Corpuscular Hgb 30.8 pg (27.0-31.0); Mean Platelet Volume 9.3 fL (7.4-10.4); Platelet Count 227 10^3/uL (130-400); Red Blood Cell Count 4.41 10^6/uL (4.70-6.10); White Blood Cell Count 8.2 10^3/uL (4.8-10.8)
[2023-10-15 17:26] LABS: Absolute Neutrophils -Man Diff 5.9 10^3/uL (1.4-6.5); Band Neutrophils 39 % (0-3); Lymphocytes 9 % (20-51); Metamyelocytes 9 % (-); Monocytes 10 % (2-9); Platelets Checked Yes; Segmented Neutrophils 33 % (42-75)
[2023-10-15 17:27] LABS: Normal RBC Morphology Yes; Total Cells Counted 100
[2023-10-15 17:28] LABS: AST (SGOT) 70 U/L (17-59); Alkaline Phosphatase 65 U/L (38-126); Blood Urea Nitrogen 50 mg/dl (9-20); Calcium 8.8 mg/dl (8.4-10.2); Carbon Dioxide 19 mmol/L (22-30); Chloride 105 mmol/L (98-107); Estimated Creatinine Clearance 50 ml/min; Glucose 175 mg/dl (70-99); Magnesium 2.8 mg/dl (1.6-2.3); Phosphorus 7.2 mg/dl (2.5-4.5); Potassium 4.6 mmol/L (3.5-5.1); Sodium 143 mmol/L (135-145); Total Bilirubin 1.1 mg/dl (0.2-1.3); eGFR 49.16
[2023-10-15 17:36] LABS: ALT (SGPT) < 10 U/L (0-50)
--- NOTE | 2023-10-15 17:51 | PTCARENOTE ---
VAT RN at bedside for PICC placement.
[2023-10-15 18:00] LABS: Glucose - Point of Care 142 mg/dl (70-99)
--- NOTE | 2023-10-15 18:17 | OR.RPT ---
Operative Report
Operative Report
Patient Name: Shilo Younger
: 1950
Date of Operation: 10/15/2023
Preoperative Diagnosis: Acute abdomen
Postoperative Diagnosis: Mesenteric ischemia, ischemic:
Procedure(s):
1. Exploratory laparotomy
2. Subtotal colectomy
Surgeon(s):
Dr. Martin
Water Quality Assistant(s):
Justin Willard MD
DARSHAN Falcon
Anesthesia: General
Estimated Blood Loss: 73 cc
Urine Output: See anesthesia record
Drains/Lines/Implants: None
Specimens: Subtotal colectomy (in 2 pieces)
Indication for surgery:
This is a 73-year-old male with a history of atrial fibrillation, hypertension, diabetes who presents to our hospital with a abdominal pain in the setting of 3 to 4 days of constipation. His abdominal pain worsened significantly since admission.
Initial CT scan was fairly reassuring but his exam was concerning and he began to clinically deteriorate requiring pressors and appeared to be going into septic shock. After thorough discussion of risk benefits and alternatives the patient and his
were consented for exploratory laparotomy.
Operative Findings: Abdomen entered safely via a generous midline incision. We encountered some murky fluid on entry but no pus or enteric contents identified. The descending colon and transverse colon were visibly ischemic, the rest of the small
bowel appeared to be normal. The sigmoid colon for the most part also appeared normal though full of stool. We began by making a window in the mesentery of the sigmoid colon and dividing it with a 100 blue load BARRETT stapler. The abdomen was very
protuberant and the bowel and colon were extremely dilated which made exposure and dissection fairly difficult. Bookwalter was set up to help retract the abdominal wall and improve exposure. Incising the white line of Toldt we were able to
medialized the descending colon up to the splenic flexure and we took the corresponding mesentery along with its staying close to the colon wall. We then entered the lesser sac via the gastrocolic ligament and divided that to the spleen. To help
with manipulation and mobilization we transected the transverse colon and dissected it distally to meet up with her prior dissection and freed the splenic flexure off of the spleen without injury to the underlying vessels or retroperitoneal
structures. At this point Dr. Willard scrubbed into assist with mobilization of the right colon to help expedite this colectomy in this critically ill patient. We incised the white line of Toldt along the ascending colon and freed up the hepatic
flexure. The duodenum was identified and preserved. A window was made in the mesentery of the terminal ileum and the ileum was divided with a stapler fire. We then marched along the mesentery of the right colon to meet our dissection from the
previously transected proximal transverse colon. This part of the specimen was also removed without injury to the underlying viscera. Hemostasis was then achieved, there was some minimal bleeding in the hepatic and splenic flexures which was
controlled with bipolar cautery. The named blood vessels were suture-ligated to ensure hemostasis. The sigmoid colon stump was tagged with a 2-0 Prolene. All sponges and towels were removed and an The [employer] Videohera wound VAC was placed with good suction to
-100 mmHg. An 18 Afghan NG tube was confirmed to be in good position in the stomach and secured at the nare. The patient was transferred to the ICU intubated and sedated with guarded prognosis. The patient's was updated over the phone.
Details of the operation:
The patient was brought to the operating room and positioned supine on the operating table. An arterial line was placed prior to induction of general anesthesia. During induction the patient was noted to have bilious contents coming out of his
mouth which was quickly suctioned up and we were able to successfully intubate the trachea. There was minimal aspiration that we could identify.
The abdomen was then prepped and draped in the usual fashion and a generous midline incision from just below the xiphoid to just above the pubis was made and the abdomen was entered safely. There was immediate visualization of murky fluid but no
succus or purulent contents were identified. The transverse colon as well as the descending colon were visibly ischemic. It appeared the sigmoid colon and cecum were fairly well-perfused. No other intra-abdominal pathology was identified. We
just began to proceed with a subtotal colectomy. A window was made in the mesentery of the sigmoid and the sigmoid was divided with a 100 blue load BARRETT stapler. We then incised the white line of Toldt of the descending colon and medialized the
colon which was very distended. Given how large the patient was and how much room the distended colon took up it was clear we needed additional retraction so a Bookwalter was set up which helped with exposure. The mesentery of the descending colon
was carefully ligated with a bipolar device up to the splenic flexure. We then entered the lesser sac via the gastrocolic ligament taking care not to injure the stomach. At this point I did palpate the stomach which was also distended and could
not identify the NG tube that anesthesia had placed so I had them replace it and positioned in the body of the stomach. I then continued marching along the transverse mesocolon distally but again it was difficult to get exposure due to the volume
of the bowel. I then elected to divide the transverse colon by making a window in the mesentery to the left of the middle colic vessels. This was done with a 100 blue load on the BARRETT stapler. I then began taking the mesentery of the transverse
colon down to the splenic flexure which was freed from its lateral and superior attachments in the dissection lines from the transverse colon and descending colon were met and the specimen was removed. At this point Dr. Willard arrived and was able
to assist with removal of the remainder of the right colon. The transverse colon mesentery was elevated off of the duodenum and at the hepatic flexure was taken down. The white line of Toldt was also incised to help medialize the mesentery of the
right colon. A window was made in the terminal ileum and this was divided again with a blue load on the BARRETT stapler. We then divided the mesentery of the terminal ileum and right colon all the way up to meet our previous dissection of the proximal
transverse colon. The specimen was removed off the field. We then turned our attention to the abdomen to achieve hemostasis. There were some small bleeding vessels at the flexors which were identified and ligated. The named vessels of the
ileocolic, middle colic and left colic were identified and suture-ligated though no active bleeding was identified at that time. The abdomen otherwise appeared fairly clean with little contamination. The abdomen was irrigated with warm normal
saline and suctioned until clear. Hemostasis once again confirmed. All sponges and towels were removed. Given that the patient was still on high dose of pressors and unstable we elected to place an ABThera wound VAC and leave the abdomen open
with plans to return to the OR in a few days for a second look exploratory laparotomy. The ABThera VAC sponge was secured to the skin with jabari and the VAC was placed to suction in the usual fashion toe -100 mmHg. All instrument counts were
correct x 2. The patient overall tolerated the procedure well and was transported the ICU for further hemodynamic monitoring with a guarded prognosis.
I was the attending physician and performed the procedure with assistance from Dr. Willard who was invaluable in providing tension, counter tension as well as helping with exposure so that we could expedite removal of the colon. I was present for
all portions of the case.
Sebastian Martin MD
[2023-10-15] MEDS: MYCAMINE 105 MG IV (19:11)
--- NOTE | 2023-10-15 19:18 | PTCARENOTE ---
Pt received intubated and drowsy-no sedation. Pt arousable to verbal stimuli, nods yes to indicate pain. Restless and grimacing once awake. PRN IVP fentanyl bolus given as ordered. #8 ETT @ 22cm on the R. AC 24/600/80%/+5. Pulse ox 96-99%. Breath
sounds coarse t/o. Afib 110s. Radial pulses palpable. R radial a-line zeroed and transduced. Levo and Vaso continue, Levo remains at max rate. Олег restarted and titrated as ordered. Олег now at max rate. MAP 58-low 70s. Abdomen soft, tender, bowel
sounds absent. Wound vac present, midline abdomen, continuous suction @100, seal maintained. Celaya in place, kaleigh urine. Safe environment maintained. Plan of care ongoing.
[2023-10-15 19:48] LABS: B.E. -11.1 mmol/L; O2 Saturation % 98.4 % (94-98); PCO2 36 mmHg (35-48); PO2 233 mmHg (83-108); pH 7.24 (7.35-7.45)
[2023-10-15 19:50] LABS: HCO3 15.4 mmol/L (21-28)
[2023-10-15 19:51] LABS: Hematocrit 41.9 % (39.0-52.0); Hemoglobin 13.8 g/dL (13.0-18.0)
[2023-10-15] MEDS: PITRESSIN 100 IV (19:53)
[2023-10-15] MEDS: LEVOPHED 258 MG IV ×2 (19:54→23:41)
[2023-10-15 20:01] LABS: Lactic Acid 6.5 mmol/L (0.7-2.0)
[2023-10-15] MEDS: SUBLIMAZE 100 IV (20:31)
[2023-10-15] MEDS: SODIUM BICARBONATE 50 MEQ IV (20:45)
[2023-10-15 21:05] LABS: Blood Urea Nitrogen 51 mg/dl (9-20); Calcium 8.5 mg/dl (8.4-10.2); Carbon Dioxide 16 mmol/L (22-30); Chloride 106 mmol/L (98-107); Estimated Creatinine Clearance 50 ml/min; Glucose 240 mg/dl (70-99); Potassium 4.3 mmol/L (3.5-5.1); Sodium 140 mmol/L (135-145); eGFR 49.16
[2023-10-15] MEDS: SOLU-CORTEF 100 MG IV (21:22)
[2023-10-15] MEDS: ATIVAN 1 MG IV (21:23)
[2023-10-15] MEDS: NSS (PRESERVATIVE FREE) 0.5 ML IV (21:23)
[2023-10-15] MEDS: SODIUM BICARBONATE 1150 MEQ IV (21:24)
[2023-10-15] MEDS: ADRENALIN 250 IV (21:31)
--- NOTE | 2023-10-15 21:56 | PTCARENOTE ---
Pt with increased restlessness and agitation, nods yes to indicate pain and itching. Fentanyl boluses administered as ordered, gtt started and titrated as ordered. x1 IVP ativan given and effective. Solu-Cortef IVP x1 given. Pt now on epi gtt as
well, initiated and titrated as per order. MAP had decreased to 50s. Pt remains at max dose of ivonne and levo, vaso continues, and epi initiated/titrated as ordered. Pt called and updated, arrived at bedside and was updated by myself and K
Luci FALCON.
--- NOTE | 2023-10-15 21:57 | W.PN.UPDATE ---
Update Note
Progress Note Update
Patient acutely hypotensive, additional vasopressors ordered ivonne-synephrine gtt which was quickly maxed and then epinephrine gtt added (in additional to Levophed and vasopressin gtts). Labs repeated and bicarb low, changed fluids from LR to bicarb
gtt 150cc/hr, 1x amp bicarb push, and [address] Chambers ec teacher updated, agreed with plan and recommended stress dose steroids. Hydrocortisone 100mg IV bolus with continued 50mg IV q6H ordered.
Patient called with changes in patient's condition/treatments and she came to bedside. Discussed current plan of care and answered all questions. Acute need of additional vasopressors and continued hypotension, prognosis very guarded.
Reviewed code status and decided DNR (no cpr, no defibrillation, no ACLS medications), continue current treatment at this time, no heroic efforts will be made.
[2023-10-15 23:14] LABS: Glucose - Point of Care 385 mg/dl (70-99)
[2023-10-15] MEDS: NOVOLOG FLEXPEN-LOW RESISTANCE 5 UNITS SC (23:41)
[2023-10-16 00:01] VITALS: BP 111/78
[2023-10-16] MEDS: SUBLIMAZE 50 MCG IV ×5 (00:04→12:46)
--- NOTE | 2023-10-16 00:11 | PTCARENOTE ---
Pts son at bedside at this time--updated. Pt remains on vasopressors and fentanyl gtts. A-line correlating with cuff pressure.
[2023-10-16] MEDS: NEO-SYNEPHRINE 250 IV ×3 (01:06→08:49)
[2023-10-16 01:16] LABS: B.E. -8.3 mmol/L; HCO3 17.2 mmol/L (21-28); O2 Saturation % 98.4 % (94-98); PCO2 35 mmHg (35-48); PO2 197 mmHg (83-108)
[2023-10-16 01:37] LABS: Lactic Acid 7.9 mmol/L (0.7-2.0)
[2023-10-16] MEDS: PITRESSIN 100 IV ×3 (03:29→18:12)
[2023-10-16] MEDS: SOLU-CORTEF 50 MG IV ×4 (03:29→23:17)
[2023-10-16 03:55] LABS: Hemoglobin 13.6 g/dL (13.0-18.0); Mean Corp Hgb Conc. 33.2 g/dL (33.0-37.0); Mean Corpuscular Hgb 31.3 pg (27.0-31.0); Mean Corpuscular Volume 94.3 fL (80.0-94.0); Mean Platelet Volume 9.9 fL (7.4-10.4); Platelet Count 212 10^3/uL (130-400); Red Blood Cell Count 4.35 10^6/uL (4.70-6.10); White Blood Cell Count 8.7 10^3/uL (4.8-10.8)
[2023-10-16 04:08] LABS: PT 19.8 Sec (11.4-14.6)
[2023-10-16 04:09] LABS: APTT 34.7 Sec (23.4-35.0)
[2023-10-16 04:17] LABS: AST (SGOT) 82 U/L (17-59); Albumin 2.6 g/dl (3.5-5.0); Alkaline Phosphatase 53 U/L (38-126); Blood Urea Nitrogen 52 mg/dl (9-20); Calcium 7.9 mg/dl (8.4-10.2); Carbon Dioxide 19 mmol/L (22-30); Chloride 104 mmol/L (98-107); Direct Bilirubin 0.6 mg/dl (0.0-0.4); Estimated Creatinine Clearance 54 ml/min; Glucose 225 mg/dl (70-99); Magnesium 2.5 mg/dl (1.6-2.3); Phosphorus 6.1 mg/dl (2.5-4.5); Potassium 4.5 mmol/L (3.5-5.1); Sodium 140 mmol/L (135-145); Total Bilirubin 0.9 mg/dl (0.2-1.3); Total Protein 4.6 g/dl (6.3-8.2)
[2023-10-16 04:25] LABS: ALT (SGPT) 39 U/L (0-50)
[2023-10-16] MEDS: SODIUM BICARBONATE 1150 MEQ IV ×2 (04:30→10:53)
[2023-10-16] MEDS: LEVOPHED 258 MG IV ×5 (04:31→22:19)
[2023-10-16] MEDS: NOVOLOG FLEXPEN-HIGH RESISTANCE 300 UNITS SC (05:12)
[2023-10-16 05:13] LABS: B.E. -6.1 mmol/L; HCO3 18.9 mmol/L (21-28); O2 Saturation % 98.1 % (94-98); PCO2 35 mmHg (35-48); PO2 161 mmHg (83-108); pH 7.34 (7.35-7.45)
--- NOTE | 2023-10-16 05:17 | PTCARENOTE ---
Pulse ox ranging 94-99%. FiO2 titrated down by RT. ETT repositioned to center. AC 24/600/50%/+5, tolerating settings.
[2023-10-16 05:23] LABS: Glucose - Point of Care 166 mg/dl (70-99)
[2023-10-16 05:28] LABS: Cortisol, Random > 123.0 ug/dl
[2023-10-16 05:34] VITALS: BMI 28.6
[2023-10-16 05:45] LABS: Lactic Acid 7.6 mmol/L (0.7-2.0)
[2023-10-16 06:44] VITALS: BP 122/99
[2023-10-16] MEDS: DUONEB 3 ML INH ×3 (07:30→19:38)
--- NOTE | 2023-10-16 07:48 | W.PN.GI.CBS2 ---
Today's Communication / Plan
-
increase IV PPI
Assessment / Plan
-
Pt critically ill with ischemic bowel, s/p surgery
1. continue supportive care
2. not much to add from GI standpoint although would switch to better GI prophalaxis with IV q12 PPI
will sign off
Subjective
Subjective
Date of Service: October 16, 2023
Pt critically ill, s/p surgery for ischemic bowel
Objective
Data Reviewed
Laboratory Data:
Laboratory Results
10/16/23 03:28
10/16/23 03:28
Laboratory Results
PT 19.8 Sec (11.4-14.6) H 10/16/23 03:28
INR 1.70 10/16/23 03:28
APTT 34.7 Sec (23.4-35.0) 10/16/23 03:28
Phosphorus 6.1 mg/dl (2.5-4.5) H 10/16/23 03:28
Magnesium 2.5 mg/dl (1.6-2.3) H 10/16/23 03:28
Total Bilirubin 0.9 mg/dl (0.2-1.3) 10/16/23 03:28
AST 82 U/L (17-59) H 10/16/23 03:28
ALT 39 U/L (0-50) 10/16/23 03:28
Alkaline Phosphatase 53 U/L (38-126) 10/16/23 03:28
Lipase 136 U/L (23-300) 10/15/23 04:18
Vital Signs and I&O:
Vital Signs
Temp Pulse Resp BP Pulse Ox
98.3 F 89 24 111/78 97
10/16/23 05:16 10/16/23 07:40 10/16/23 07:40 10/16/23 00:01 10/16/23 07:40
I&O
10/15/23 10/16/23 10/17/23
06:59 06:59 06:59
Intake Total 5627.5 / 5627.5
Output Total 2475 / 2475
Balance 3152.5 / 3152.5
Physical Exam
Physical Exam
HEENT: Other (intubated, sedated)
--- NOTE | 2023-10-16 08:30 | PTCARENOTE ---
Pt received intubated and drowsy-no sedation. Pt arousable to verbal stimuli, nods yes to indicate pain. Restless and grimacing once awake. Fentanyl gtt for sedation/pain control/vent synch. #8 ETT @ 22cm centered. AC 24/600/40%/+5. Pulse ox 95%.
Breath sounds ronchi throughout. Afib 80. doppler pedal pulses. R radial a-line zeroed and leveled. Levo, ivonne, Vaso continue for MAP >65, epi off, see flowsheet. Abdomen soft, tender, bowel sounds absent. Wound vac present, midline abdomen,
continuous suction @100mmhg, seal maintained. Draining serosang o/p. Celaya in place, kaleigh urine. Safe environment maintained, restraints BUE. Plan of care ongoing.
[2023-10-16] MEDS: FLAGYL 500 MG 100 IV ×3 (08:37→23:16)
[2023-10-16] MEDS: PROTONIX IV 40 MG IV ×2 (08:46→20:40)
[2023-10-16] MEDS: NSS (PRESERVATIVE FREE) 10 ML IV ×2 (08:47→20:39)
[2023-10-16 09:08] VITALS: BP 124/88
[2023-10-16] MEDS: SUBLIMAZE 100 IV ×2 (09:12→16:50)
--- NOTE | 2023-10-16 09:37 | W.PN.GS2 ---
Today's Communication / Plan
-
C/W Abthera Vac and NGT to suction
Assessment / Plan
-
73 yo male with h/o of AFIB on Eliquis presenting with abdominal pain with fecal impaction on initial CT, disimpacted in ED but without relief in pain. Taken to the OR emergently on 10/15 as he clinically deteriorated with increasing abdominal pain.
Ischemic colon & mesentery noted in OR.
POD #1 ex lap with subtotal hemicolectomy, currently in discontinuity with open abdomen and ABThera wound vac
Afebrile, pressors being weaned but still on high doses
Lactic acid persistently elevated
No leukocytosis, h/h stable
KCentra given preop
--C/W NGT to suction, strict NPO, Nothing per rectum
--Continue AbThera vac to 100mmHg of light suction, monitor outputs
--Will need eventual take back to the OR for ex lap and intracorporeal anastomosis vs more likely ileostomy creation, timing TBD pending patient course and stability for surgery
--VTE ppx with SCD's and sq heparin, please continue to hold full strength AC at this time
--Medical and critical care management as per fishing vessel captain and hospitalist teams
Subjective Data
-
Date of Service: October 16, 2023
Patient seen and evaluated with Dr. Martin. Family at bedside, updated on patient status. Patient sedated and unable to provide subjective portion of exam
Objective Data
-
Intake and Output
10/15/23 10/16/23 10/17/23
06:59 06:59 06:59
Intake Total 5627.5 / 5627.5
Output Total 2475 / 2475
Balance 3152.5 / 3152.5
Intake:
Oral fluids 120 / 120
IV fluids (Total) 5407.5 / 5407.5
BOLUS 1250 / 1250
Levo 902.0 / 902.0
Lr 1,000 ml @ 125 mls/hr IV . 875 / 875
Q8H PAULINA Rx#:[id number]
Олег 744 / 744
Sterile Water For Injection 1350 / 1350
1000 ml 1,000 ml @ 150 mls/hr
IV .Q7H40M PAULINA with Sodium
Bicarbonate 150 Meq Rx#:
[id number]
epi 75.0 / 75.0
fentanyl 67.5 / 67.5
vaso 144 / 144
IV piggybacks 100 / 100
Output:
Drain Output (Total) 500 / 500
Middle Abdomen Wound Vac 500 / 500
Urine, Silva 1974 / 1974
Vital Signs
Temp Pulse Resp BP Pulse Ox
98.3 F 89 24 111/78 97
10/16/23 05:16 10/16/23 07:40 10/16/23 07:40 10/16/23 00:01 10/16/23 07:40
Lab Results
10/16/23 03:28
10/16/23 03:28
Calcium 7.9 mg/dl (8.4-10.2) L 10/16/23 03:28
Phosphorus 6.1 mg/dl (2.5-4.5) H 10/16/23 03:28
Magnesium 2.5 mg/dl (1.6-2.3) H 10/16/23 03:28
Total Bilirubin 0.9 mg/dl (0.2-1.3) 10/16/23 03:28
Direct Bilirubin 0.6 mg/dl (0.0-0.4) H 10/16/23 03:28
AST 82 U/L (17-59) H 10/16/23 03:28
ALT 39 U/L (0-50) 10/16/23 03:28
Alkaline Phosphatase 53 U/L (38-126) 10/16/23 03:28
Total Protein 4.6 g/dl (6.3-8.2) L 10/16/23 03:28
Albumin 2.6 g/dl (3.5-5.0) L 10/16/23 03:28
Physical Exam
-
NAD, comfortable/sedated
VDRF: vent to ETT
ABD with ABThera VAC with SS outputs, NGT in place with minimal bilious drainage
silva with tea colored urine
[2023-10-16] MEDS: OFIRMEV 100 IV (09:40)
--- NOTE | 2023-10-16 10:00 | W.PN.HOSP.TC ---
Today's Communication/Plan
-
see outlined plan
Assessment / Plan
Assessment / Plan
Assessment:
Septic shock POA
- requiring multiple pressors, follow BP with A-line and wean as able
- continue IVF, follow lactate levels
- ICU team following
Acute surgical abdomen with stercoral colitis with severe ischemic bowel
- s/p disimpaction in ER
- clinically unstable 10/14
- emergent OR 10/14: ex lap, subtotal colectomy for mesenteric ischemia, ischemic colon
- GS following
- GI signed off
- continue empiric Cefepime/Flagyl and Micafungin, follow cultures
- continue IV PPI
- tentative repeat OR in 24 hours pending clinical course
Community acquired PNA, LLL
Vent dependent respiratory failure
- sedation/vent management per ICU
- continue empiric Cefepime/Flagyl
JOSE from septic shock
Acute metabolic acidosis
- monitor renal function, Celaya in place for critical I/Os
- continue IVF, bicarbonate
A. Fib with RVR
- likely driven by septic shock
- monitor rates
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
Hypernatremia
Transaminitis likely shock liver
Elevated INR
- follow labs
Hx of Essential HTN
- holding JORY/HCTZ
Type 2 DM
- holding Metformin
- on critical care insulin protocol
Hx of COPD
Former tobacco use disorder with [id number]-[id number] history, quit about 15 years ago
DVT ppx: SCDs
Code: DNR confirmed with Son Shilo. No heroic measures.
Total Critical Care Time 47 minutes. I was immediately available to the patient and staff. I personally examined, reviewed labs, diagnostic images/reports, interpretations, treatment plans, discussed patient care with other providers and family
or caregivers (if patient is unable to make decisions), entered orders as appropriate and documented the medical record.
Anticipated Discharge: > 48 hours
Subjective/Interval History
-
Date of Service: October 16, 2023
currently intubated/sedated on 3 pressors
son at bedside
Objective Data
-
Labs:
Laboratory Results
10/16/23 10/16/23 10/16/23
01:09 03:28 05:07
WBC 8.7
Hgb 13.6
Hct 41.0
Plt Count 212
PT 19.8 H
INR 1.70
APTT 34.7
HCO3 17.2 L 18.9 L
Sodium 140
Potassium 4.5
Chloride 104
Carbon Dioxide 19 L
BUN 52 H
Creatinine 1.4 H
Glucose 225 H
Calcium 7.9 L
Total Bilirubin 0.9
AST 82 H
ALT 39
Alkaline Phosphatase 53
10/16/23
11:00
WBC
Hgb
Hct
Plt Count
PT
INR
APTT
HCO3
Sodium Pending
Potassium Pending
Chloride Pending
Carbon Dioxide Pending
BUN Pending
Creatinine Pending
Glucose Pending
Calcium Pending
Total Bilirubin
AST
ALT
Alkaline Phosphatase
Vital Signs:
Vital Signs
Temp Pulse Resp BP Pulse Ox
98.3 F 89 24 111/78 97
10/16/23 05:16 10/16/23 07:40 10/16/23 07:40 10/16/23 00:01 10/16/23 07:40
I&O
10/15/23 10/16/23 10/17/23
06:59 06:59 06:59
Intake Total 5627.5 / 5627.5
Output Total 2475 / 2475
Balance 3152.5 / 3152.5
Physical Exam
-
General: Intubated
HEENT: Normocephalic and Atraumatic
Respiratory: Clear to Auscultation and Other (vent sounds)
Cardiac: Regular Rhythm and S1/S2
GI: Tender and Distended
Neuro: Sedated
Psych: Calm
Data Reviewed
-
Critical Care Time (in minutes): 47
Labs: Labs Reviewed by me
--- NOTE | 2023-10-16 10:05 | CM ---
CM following re: discharge planning.
Discussed in Rounds, reviewed pt's chart, met with pt. Pt's son Shilo Marin III and pt's spouse at bedside.
Pt is a 73 year old male, admitted with primary dx of Mesenteric ischemia. Exploratory laparotomy and Subtotal colectomy procedures performed yesterday. Per Rounds meeting, pt remains intubated, DNR, remains critically ill, s/p surgery for ischemic
bowel, continue supportive care.
Per son, pt lives with spouse 2SH, 2 steps to enter, he is the only son and pt has a stepdaughter. 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 No DME, VN or SNF history. Both pt's spouse and pt;'s son are aware of pt's current health
condition and prognosis. Emotional support offered and provided.
D/C plan: uncertain at this time and will dep[end on pt's progress.
CM will follow with discharge plan updates as hospitalization progresses
--- NOTE | 2023-10-16 10:20 | W.PN.INTV ---
Today's Communication / Plan
Recommendations
Continue vasopressors
Continue antibiotics
Follow cultures
Continue bicarbonate drip
Labs later today
Continue mechanical ventilation without change, not ready for spontaneous breathing trial
Continue IV fentanyl drip for sedation
N.p.o.
DNR status
Assessment
-
Assessment: 73-year-old male former tobacco smoker with past medical history of A-fib on Eliquis, hypertension, DM type II, BPH, history of COPD and allergic rhinitis who presents with lower abdominal pain, nausea/vomiting. Symptoms started last
night and he reports constipation for few days. Last BM about 3 days ago. Initial vitals in the ER showed he was in rapid A-fib with VR of 139 bpm, afebrile to 98.4 �F, breathing at 27 breaths minute, hypotensive to 76/59, and SpO2 93% on room
air. EKG confirmed A-fib with RVR. Labs showed leukocytosis to 20.4, creatinine 1.5, lactate 7.4, and T. bili 1.7. Blood culture collected. CT abdomen/pelvis showed fecal impaction without evidence for bowel obstruction. CXR showed retrocardiac
opacification concerning for left lower lobe pneumonia. He was given aztreonam/Flagyl in the ER, fentanyl, morphine, total of 3 L NS 0.9% and Zofran. He was admitted to the ICU for close monitoring with critical care services consulted for
additional management/recommendations.
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
Impression:
#Stercoral colitis with severe constipation s/p disimpaction in the ER
Status post expiratory laparotomy/subtotal colectomy-diagnosis bowel ischemia. 10/15/2023
#Abdominal pain due to above
#Septic shock due to above in the setting of left lower lobe CAP
#Lactic acidosis
#CAP involving left lower lobe/right lower lobe
#Acute respiratory failure with hypoxia-requiring intubation mechanical ventilation.
Intubated 10/15/2023
#JOSE
#A-fib with RVR
#Elevated INR
#Transaminitis with elevated T. bili + elevated ALP
#Abnormal urinalysis with +1 leukocyte esterase
#Hypertension
#Reported history of COPD
#Former tobacco use disorder with [id number] history, quit about 15 years ago
Plan:
Critically ill, requiring multiple vasopressors.
Sedated.
Intubated on mechanical ventilation.
-
Septic shock: Intra-abdominal source. Possible pneumonia as well.
Requiring multiple vasopressors vasopressin/Олег-Synephrine/Levophed.
Epinephrine discontinued this morning
Hydrocortisone for relative adrenal insufficiency
Continue to titrate to maintain mean arterial blood pressure greater than 65 mmHg
Lactic acid 10/16/2023 at 5 AM 7.6. Continue to trend.
Acute kidney injury: Continue with hemodynamic support
Labs at 11 AM
-
Status post exploratory laparotomy, subtotal colectomy.
Operative report reviewed
Bowel ischemia transverse and ascending colon: Noted
will need additional intervention in the next 24 hours
- Continue with broad-spectrum antibiotics
- Currently on cefepime/flagyl/ micafungin
Follow cultures, will adjust antibiotics in the next 24 to 48 hours.
There was no reports of significant peritonitis on operative report
Pneumonia on x-ray: Continue antibiotics, cannot rule out aspiration
Follow culture
Mechanical ventilation settings reviewed
No significant secretions
ABG with adequate oxygenation and ventilation, continue settings without change
No plans for spontaneous breathing trial
Sedation with fentanyl drip.
Maintain RASS 0(-1)
Propofol will be started if needed. Currently patient is calm/appears
Atrial fibrillation
Hold anticoagulation for now
Rate is relatively controlled at this point.
- Replete electrolytes with K>4, Mg>2
-Lactic acidosis: Continue bicarbonate drip.
Repeat labs later, will adjust IV fluids as necessary.
-
Hyperglycemia: Start insulin drip.
goal BG 140-180
- Renally dose all meds/Abx
- Trend sCr and UOP
- Celaya catheter in place
- Given Hx of COPD with mild wheezing on exam, start xopenex and atrovent TID with prn nebulized bronchodilators for breakthrough symptoms
-
- DVT ppx: SCDs for now -high risk for bleeding. Hold anticoagulation for today.
PPI for GI prophylaxis
-
DNR status noted
Critical care statement: A total of 45 minutes of critical care time was provided for this patient today. This includes management of unstable vital signs, evaluation of the patient at bedside, reviewing the patient's pertinent medical records
including radiographs, microbiology, laboratory evaluations, and discussion with primary team, consultants, pharmacy, nutrition, physical therapy, case management, charge nurse, critical care nursing, and respiratory therapy.
Data:
CT abdomen/pelvis with IV contrast 10/15/2023:
Findings concerning for fecal impaction.
Large amount of fecal material throughout the colon.
Bilateral too small to characterize hypodense renal lesions likely benign cysts.
Severe atherosclerotic vascular disease.
Solid noncalcified left lower lobe pulmonary nodule. Continued surveillance recommended.
CXR 10/15/2023: Findings suggesting mild left lower lobe pneumonia.
Subjective Dataa
Subjective Data
Date of Service:
Date of Service: October 16, 2023
Chief Complaint: Payable Representative Follow Up (Septic shock/), Pneumonia Follow Up and Vent Management Follow Up
Subjective:
Critically ill, intubated on mechanical ventilation.
Sedated
Requiring multiple vasopressor
Unable to provide history
Review of Systems
General: Unobtainable - Sedation
Objective Data
Data Reviewed
Vital Signs / I&O / Oxygen:
Vital Signs
Temp Pulse Resp BP Pulse Ox
98.3 F 89 24 111/78 97
10/16/23 05:16 10/16/23 07:40 10/16/23 07:40 10/16/23 00:01 10/16/23 07:40
Intake and Output
10/15/23 10/16/23 10/17/23
06:59 06:59 06:59
Intake Total 5627.5 / 5627.5
Output Total 2475 / 2475
Balance 3152.5 / 3152.5
SaO2 [A/C] 96
SaO2 97
Nasal Cannula flow liters per 6
minute
Physical Exam
General: Respiratory Distress (n)
HEENT: Normocephalic
Cardiovascular: S1-S2 and Regular Rhythm
Respiratory: Rhonchi, Non-Labored Respirations and ET Tube (No significant secretion or hemoptysis)
GI: Soft and Non Distended
Neurology: Awake and Other (Sedated, mechanical ventilation. Unable to provide history Occasionally coughing. Occasionally moving extremities)
Skin: Warm
Labs/Micro/Reports
Lab Data
10/16/23 03:28
Laboratory Results
10/15/23 10/15/23 10/15/23
09:59 16:54 19:42
PT 27.1 H 17.6 H
INR 2.52 1.46
APTT 40.0 H
pH 7.22 L 7.24 L
pCO2 43 36
pO2 304 H 233 H
HCO3 17.6 L 15.4 L*
O2 Delivery Level
10/16/23 10/16/23 10/16/23
01:09 03:28 05:07
PT 19.8 H
INR 1.70
APTT 34.7
pH 7.30 L 7.34 L
pCO2 35 35
pO2 197 H 161 H
HCO3 17.2 L 18.9 L
O2 Delivery Level
Microbiology
10/15/23 05:43 Blood/Venous Blood Culture - Preliminary
No Growth in 24 hours- Final report to follow
[2023-10-16 10:27] LABS: Glycohemoglobin (HgbA1c) 6.2 % (4.0-5.6)
--- NOTE | 2023-10-16 11:11 | PN.DE.MGMTRT ---
Insulin Management
- -
10/16/2023: Diabetes Management Consult
73 year old male with PMH: PAF, HTN, COPD, BPH, former tobacco smoker T2DM and allergic rhinitis. Pt presented to the ED with c/o lower abdominal pain, nausea/vomiting. CT A/P-->Stercoral colitis with severe constipation s/p disimpaction in the
ER, s/p ex lap with subtotal colectomy- due to severe ischemic bowel on 10/15/2023. Noted for Septic shock requiring multiple pressors, LLL Community acquired PNA and Vent dependent respiratory failure.
Prior to admission, pt was taking Metformin 500mg BID. Current A1C 6.2%, Cr 1.7-->1.4, eGFR 53.40 today
Pt is sedated and intubated on mechanical ventilation. NPO. Unable to interview or discuss diabetes mgt.
10/14 was started on IV steroids- Prednisone 100 mg--> 50 mg Q8hrs causing hyperglycemia, glucose trended up to 385, fasting 225.
Plan to start critical care glycemic protocol. Will closely follow and assess for readiness to transition to SQ insulin.
Diabetes History
- -
Type of Diabetes: 2 requiring insulin
Pre-Admission Diabetes Regimen
10/15/23 10/15/23 10/15/23
12:04 16:54 19:42
Creatinine 1.7 H 1.5 H Cancelled
10/15/23 10/16/23
20:39 03:28
Creatinine 1.5 H 1.4 H
Lab Results
Hemoglobin A1c 6.2 % (4.0-5.6) H 10/16/23 03:28
Insulin Pump Settings
IP Diabetes Regimen
10/15/23 10/15/23 10/15/23
12:04 12:14 16:54
Glucose 124 H 175 H
POC Glucose 107 H
10/15/23 10/15/23 10/15/23
17:48 19:42 20:39
Glucose Cancelled 240 H
POC Glucose 142 H
10/15/23 10/16/23 10/16/23
23:03 03:28 05:11
Glucose 225 H
POC Glucose 385 H 166 H
Patient Education
[2023-10-16 11:42] LABS: Lactic Acid 6.7 mmol/L (0.7-2.0)
[2023-10-16] MEDS: NOVOLIN R INSULIN INFUSION 100 IV (11:46)
[2023-10-16] MEDS: FLUSH (NSS) 1 FLUSH IV (11:51)
[2023-10-16] MEDS: STERILE WATER FOR INJECTION 10 ML IV ×2 (11:51→23:17)
[2023-10-16] MEDS: MAXIPIME 2000 MG IV ×2 (11:51→23:16)
[2023-10-16 12:00] VITALS: BP 130/94
[2023-10-16 12:24] LABS: Glucose - Point of Care 124 mg/dl (70-99)
[2023-10-16] MEDS: FLUSH (NSS) 10 FLUSH IV (12:32)
[2023-10-16] MEDS: MYCAMINE 105 MG IV (12:45)
[2023-10-16 12:46] LABS: Blood Urea Nitrogen 52 mg/dl (9-20); Calcium 7.4 mg/dl (8.4-10.2); Carbon Dioxide 22 mmol/L (22-30); Chloride 101 mmol/L (98-107); Estimated Creatinine Clearance 63 ml/min; Glucose 191 mg/dl (70-99); Potassium 4.2 mmol/L (3.5-5.1); Sodium 138 mmol/L (135-145); eGFR > 60.00
[2023-10-16 13:27] VITALS: BMI 28.6
[2023-10-16 13:28] LABS: Glucose - Point of Care 129 mg/dl (70-99)
[2023-10-16] MEDS: DIPRIVAN 100 IV (13:49)
[2023-10-16 14:21] LABS: Glucose - Point of Care 179 mg/dl (70-99)
--- NOTE | 2023-10-16 14:22 | PTCARENOTE ---
All patient systems reassessed. PRN fentanyl given. Awaiting to start insulin gtt per protocol. Family updated at bedside by tin worker.
[2023-10-16 15:13] LABS: Glucose - Point of Care 174 mg/dl (70-99)
[2023-10-16] MEDS: LR 1000 IV ×2 (15:15→21:40)
[2023-10-16] MEDS: HEPARIN 5000 UNITS SC ×2 (15:16→23:17)
[2023-10-16 16:40] LABS: Glucose - Point of Care 139 mg/dl (70-99)
[2023-10-16 16:52] VITALS: BP 106/85
--- NOTE | 2023-10-16 17:00 | PTCARENOTE ---
All systems reassessed. Epi and and Олег gtts off. Insulin gtt started.. CMV settings: 24/600/40%/5. Insulin gtt started. Safe environment maintained.
[2023-10-16 17:13] LABS: Glucose - Point of Care 116 mg/dl (70-99)
[2023-10-16 17:59] LABS: Triglycerides 69 mg/dl (10-149)
[2023-10-16 18:06] LABS: Glucose - Point of Care 133 mg/dl (70-99)
[2023-10-16 19:08] LABS: Glucose - Point of Care 125 mg/dl (70-99)
[2023-10-16 20:06] LABS: Glucose - Point of Care 132 mg/dl (70-99)
--- NOTE | 2023-10-16 20:40 | W.PN.ANS.POP ---
Anesthesia Post Operative
- Anesthesia Post Op Note
Vital Signs Stable-See Nursing Note: Yes
Airway Patent: Yes
Adequate Pain Control: Yes
Change in Mental Status: No
Current Postoperative Nausea & Vomiting: No
Anesthesia Complications: No
General Anesthetic Recall: No
Unplanned Admission: No
Post Op Hydration Adequate: Yes
[2023-10-16 22:26] LABS: Glucose - Point of Care 130 mg/dl (70-99)
[2023-10-17] VITALS (17 sets, daily range): BP systolic 76–114; BP diastolic 51–85; BMI 29.5
[2023-10-17 00:22] LABS: Glucose - Point of Care 119 mg/dl (70-99)
--- NOTE | 2023-10-17 00:46 | PTCARENOTE ---
systems reviewed, drips titrated per worklist, ABP 116/89 MAP 84 levo tirated down to 18, abd wound vac in place and canister changed, no changes from beginning assessment, otherwise refer to documentation.
[2023-10-17 01:15] LABS: Glucose - Point of Care 109 mg/dl (70-99)
[2023-10-17 02:14] LABS: Glucose - Point of Care 103 mg/dl (70-99)
[2023-10-17] MEDS: PITRESSIN 100 IV (02:53)
[2023-10-17] MEDS: SUBLIMAZE 100 IV ×3 (02:55→20:19)
[2023-10-17] MEDS: DIPRIVAN 100 IV ×3 (02:57→23:28)
[2023-10-17] MEDS: SOLU-CORTEF 50 MG IV (03:15)
[2023-10-17 03:17] LABS: Glucose - Point of Care 108 mg/dl (70-99)
[2023-10-17] MEDS: LR 1000 IV ×3 (03:20→23:20)
[2023-10-17 04:07] LABS: Glucose - Point of Care 89 mg/dl (70-99)
[2023-10-17 04:12] LABS: Hematocrit 32.6 % (39.0-52.0); Hemoglobin 11.5 g/dL (13.0-18.0); Mean Corp Hgb Conc. 35.3 g/dL (33.0-37.0); Mean Corpuscular Hgb 31.2 pg (27.0-31.0); Mean Corpuscular Volume 88.3 fL (80.0-94.0); Mean Platelet Volume 10.5 fL (7.4-10.4); Platelet Count 154 10^3/uL (130-400); Red Blood Cell Count 3.69 10^6/uL (4.70-6.10); Red Cell Dist. Width 13.1 % (11.5-14.5); White Blood Cell Count 15.1 10^3/uL (4.8-10.8)
[2023-10-17 04:23] LABS: ALT (SGPT) 39 U/L (0-50); AST (SGOT) 83 U/L (17-59); Alkaline Phosphatase 46 U/L (38-126); Blood Urea Nitrogen 48 mg/dl (9-20); Calcium 7.4 mg/dl (8.4-10.2); Carbon Dioxide 28 mmol/L (22-30); Chloride 101 mmol/L (98-107); Estimated Creatinine Clearance 84 ml/min; Glucose 105 mg/dl (70-99); Sodium 137 mmol/L (135-145); Total Bilirubin 0.9 mg/dl (0.2-1.3); Total Protein 3.8 g/dl (6.3-8.2); eGFR > 60.00
[2023-10-17] MEDS: KCL 100 IV ×2 (05:03→10:34)
[2023-10-17] MEDS: SUBLIMAZE 50 MCG IV ×5 (05:20→20:19)
[2023-10-17 05:23] LABS: Glucose - Point of Care 125 mg/dl (70-99)
[2023-10-17] MEDS: CALCIUM GLUCONATE 130 MG IV (05:32)
[2023-10-17] MEDS: LEVOPHED 258 MG IV ×2 (06:12→17:29)
[2023-10-17 06:27] LABS: Glucose - Point of Care 131 mg/dl (70-99)
[2023-10-17 06:57] LABS: % Basophils 0.1 % (0-2); % Immature Granulocytes 0.5 % (0-0.5); % Monocytes 3.2 % (1.7-9.3); % Neutrophils 92.2 % (42.2-75.2); Absolute Immature Granulocytes 0.1 10^3/uL (0-0.05); Absolute Lymphocytes 0.6 10^3/uL (1.2-3.4); Absolute Monocytes 0.5 10^3/uL (0.1-0.6); Absolute Neutrophils 13.9 10^3/uL (1.4-6.5); Nucleated Red Blood Cells % 0 % (-)
[2023-10-17] MEDS: DUONEB 3 ML INH ×3 (07:28→19:39)
--- NOTE | 2023-10-17 08:00 | PTCARENOTE ---
Pt received intubated and drowsy. Pt arousable to verbal stimuli, nods yes to indicate pain. Restless and grimacing once awake. Fentanyl and prop gtt for sedation/pain control/vent synch. #8 ETT @ 22cm centered. AC 16/550/40%/+5. Pulse ox 95%.
Breath sounds ronchi throughout. Afib 80. doppler pedal pulses. R radial a-line zeroed and leveled. Levo, Vaso continue for MAP >65, epi off, insulin off see flowsheet. Abdomen soft, tender, bowel sounds absent. Wound vac present, midline abdomen,
continuous suction @100mmhg, seal maintained. Draining serosang o/p. Celaya in place, kaleigh urine. Safe environment maintained, restraints BUE. Plan of care ongoing.
[2023-10-17 08:22] LABS: Glucose - Point of Care 97 mg/dl (70-99)
[2023-10-17] MEDS: FLAGYL 500 MG 100 IV ×3 (08:25→23:20)
[2023-10-17] MEDS: PROTONIX IV 40 MG IV ×2 (08:25→19:42)
[2023-10-17] MEDS: HEPARIN 5000 UNITS SC (08:26)
[2023-10-17] MEDS: NSS (PRESERVATIVE FREE) 10 ML IV ×2 (08:26→19:42)
--- NOTE | 2023-10-17 08:32 | PN.DE.MGMTRT ---
Insulin Management
- -
10/17/2023: Diabetes Management Consult Follow up
Patient admitted with lower abdominal abdominal pain, N&V. PMH: PAF, HTN, COPD, BPH, former tobacco smoker T2DM and allergic rhinitis. . CT A/P-->Stercoral colitis with severe constipation s/p disimpaction in the ER, s/p ex lap with subtotal
colectomy- due to severe ischemic bowel on 10/15/2023. Noted for Septic shock requiring multiple pressors, LLL Community acquired PNA and Vent dependent respiratory failure.
Prior to admission, pt was taking Metformin 500mg BID. Current A1C 6.2%.
Pt is sedated and intubated on mechanical ventilation. NPO. Unable to interview or discuss diabetes mgt.
Glycemic protocol stopped this AM Novolog low corrective insulin Q 6 hours started. Will make no change.
Will closely follow.
Diabetes History
- -
Type of Diabetes: 2
Pre-Admission Diabetes Regimen
10/16/23 10/17/23
11:13 03:56
Creatinine 1.2 0.9
Lab Results
Hemoglobin A1c 6.2 % (4.0-5.6) H 10/16/23 03:28
Insulin Pump Settings
IP Diabetes Regimen
10/16/23 10/16/23 10/16/23
11:13 12:02 13:07
Glucose 191 H
POC Glucose 124 H 129 H
10/16/23 10/16/23 10/16/23
14:08 15:00 16:21
Glucose
POC Glucose 179 H 174 H 139 H
10/16/23 10/16/23 10/16/23
17:00 17:54 18:57
Glucose
POC Glucose 116 H 133 H 125 H
10/16/23 10/16/23 10/17/23
19:53 22:14 00:10
Glucose
POC Glucose 132 H 130 H 119 H
10/17/23 10/17/23 10/17/23
01:02 02:01 03:05
Glucose
POC Glucose 109 H 103 H 108 H
10/17/23 10/17/23 10/17/23
03:55 03:56 05:10
Glucose 105 H
POC Glucose 89 125 H
10/17/23 10/17/23
06:14 08:04
Glucose
POC Glucose 131 H 97
Patient Education
--- NOTE | 2023-10-17 08:42 | W.PN.GS2 ---
Today's Communication / Plan
-
Continue care per ICU, wean pressors as able.
Continue antibiotics.
OR tentatively plan for tomorrow 10/18/2023 but may delay if still on significant amount of pressors.
Stoma marking consult
Assessment / Plan
-
73 yo male with h/o of AFIB on Eliquis presenting with abdominal pain with fecal impaction on initial CT, disimpacted in ED but without relief in pain. Taken to the OR emergently on 10/15 as he clinically deteriorated with increasing abdominal pain.
POD #2 ex lap with subtotal colectomy, currently in discontinuity with open abdomen and ABThera wound vac for ischemic colon and peritonitis.
Afebrile, pressors being weaned but still on Levophed and vasopressin.
Lactic acid decreasing but still elevated
--C/W NGT to suction, strict NPO, Nothing per rectum
--Continue AbThera vac to 100mmHg of light suction, monitor outputs
--Will need eventual take back to the OR for ex lap and intracorporeal anastomosis vs more likely ileostomy creation, timing TBD pending patient course and stability for surgery, anticipate 10/18/2023.
--VTE ppx with SCD's and sq heparin, please continue to hold full strength AC at this time
--Medical and critical care management as per clam digger and hospitalist teams
-- Lengthy discussion held with the family about options for reconstruction either ileocolic anastomosis with or without diversion, or end ileostomy.
Time Spent
Total Time Spent with Patient (in minutes): 30
Subjective Data
-
Date of Service: October 17, 2023
Interval Events:
No acute events overnight. Pressor requirements are coming down levo at 10 mcg/min, vaso at 0.04. Remains intubated and sedated.
Objective Data
-
Intake and Output
10/16/23 10/17/23 10/18/23
06:59 06:59 06:59
Intake Total 5627.5 / 5923.3 6062.3 / 6062.3
Output Total 2475 / 2475 2515 / 2515
Balance 3152.5 / 3448.3 3547.3 / 3547.3
Intake:
Oral fluids 120 / 120
IV fluids (Total) 5407.5 / 5703.3 5832.3 / 5832.3
BOLUS 1250 / 1250
Insulin 42.9 / 42.9
Levo 902.0 / 958.3 1101.5 / 1101.5
Lr 1,000 ml @ 125 mls/hr IV . 875 / 875
Q8H PAULINA Rx#:[id number]
Lr 1,000 ml @ 150 mls/hr IV . 2400 / 2400
Q6H40M PAULINA Rx#:[id number]
Олег 744 / 804 351 / 351
Propofol 94.4 / 94.4
Sterile Water For Injection 1350 / 1500 1200 / 1200
1000 ml 1,000 ml @ 150 mls/hr
IV .Q7H40M PAULINA with Sodium
Bicarbonate 150 Meq Rx#:
[id number]
Tylenol 100 / 100
epi 75.0 / 82.5 14.5 / 14.5
fentanyl 67.5 / 77.5 240 / 240
vaso 144 / 156 288 / 288
IV piggybacks 100 / 100 230 / 230
Output:
Drain Output (Total) 500 / 500 400 / 400
Middle Abdomen Wound Vac 500 / 500 400 / 400
Urine, Celaya 1974 / 1974 2114 / 2114
Vital Signs
Temp Pulse Resp BP Pulse Ox
98.7 F 64 24 114/85 97
10/17/23 08:05 10/17/23 07:29 10/17/23 07:29 10/17/23 00:00 10/17/23 07:30
Lab Results
10/17/23 03:56
10/17/23 03:56
Calcium 7.4 mg/dl (8.4-10.2) L 10/17/23 03:56
Phosphorus 6.1 mg/dl (2.5-4.5) H 10/16/23 03:28
Magnesium 2.5 mg/dl (1.6-2.3) H 10/16/23 03:28
Total Bilirubin 0.9 mg/dl (0.2-1.3) 10/17/23 03:56
Direct Bilirubin 0.6 mg/dl (0.0-0.4) H 10/16/23 03:28
AST 83 U/L (17-59) H 10/17/23 03:56
ALT 39 U/L (0-50) 10/17/23 03:56
Alkaline Phosphatase 46 U/L (38-126) 10/17/23 03:56
Total Protein 3.8 g/dl (6.3-8.2) L 10/17/23 03:56
Albumin 2.0 g/dl (3.5-5.0) L 10/17/23 03:56
Physical Exam
-
GENERAL/NEURO: Sedated
CHEST: Unlabored breathing on ventilator
ABDOMEN: Soft, Non-Tender, Non-Distended, ABThera VAC in place with serous sanguinous drainage
EXTREMITIES: warm, well perfused, no jaundice, no cyanosis, no edema
[2023-10-17 09:36] LABS: B.E. 3.5 mmol/L; HCO3 25.9 mmol/L (21-28); O2 Saturation % 98.4 % (94-98); PCO2 31 mmHg (35-48); PO2 163 mmHg (83-108); pH 7.53 (7.35-7.45)
--- NOTE | 2023-10-17 11:37 | W.PN.INTV ---
Today's Communication / Plan
Recommendations
Continue mechanical ventilation, settings adjusted
Decrease IV fluid rate to 80 cc an hour
Discontinue micafungin, continue rest of the antibiotics.
Continue sedation, no plans for spontaneous breathing trial
Eventual to restart anticoagulation once cleared from surgery
Plan for possible intervention in the next 24 hours
Continue to wean down vasopressors as able, down to Levophed only at 10 mics per minute
Discontinue stress dose of steroids
Assessment
-
Assessment: 73-year-old male former tobacco smoker with past medical history of A-fib on Eliquis, hypertension, DM type II, BPH, history of COPD and allergic rhinitis who presents with lower abdominal pain, nausea/vomiting. Symptoms started last
night and he reports constipation for few days. Last BM about 3 days ago. Initial vitals in the ER showed he was in rapid A-fib with VR of 139 bpm, afebrile to 98.4 �F, breathing at 27 breaths minute, hypotensive to 76/59, and SpO2 93% on room
air. EKG confirmed A-fib with RVR. Labs showed leukocytosis to 20.4, creatinine 1.5, lactate 7.4, and T. bili 1.7. Blood culture collected. CT abdomen/pelvis showed fecal impaction without evidence for bowel obstruction. CXR showed retrocardiac
opacification concerning for left lower lobe pneumonia. He was given aztreonam/Flagyl in the ER, fentanyl, morphine, total of 3 L NS 0.9% and Zofran. He was admitted to the ICU for close monitoring with critical care services consulted for
additional management/recommendations.
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
Impression:
#Stercoral colitis with severe constipation s/p disimpaction in the ER
Status post expiratory laparotomy/subtotal colectomy-diagnosis bowel ischemia. 10/15/2023
#Abdominal pain due to above
#Septic shock due to above in the setting of left lower lobe CAP
#Lactic acidosis
#CAP involving left lower lobe/right lower lobe
#Acute respiratory failure with hypoxia-requiring intubation mechanical ventilation.
Intubated 10/15/2023
#JOSE
#A-fib with RVR
#Elevated INR
#Transaminitis with elevated T. bili + elevated ALP
#Abnormal urinalysis with +1 leukocyte esterase
#Hypertension
#Reported history of COPD
#Former tobacco use disorder with [id number] history, quit about 15 years ago
Plan:
Critically ill, requiring multiple vasopressors.
Sedated.
Intubated on mechanical ventilation.
-
Septic shock: Intra-abdominal source. Possible pneumonia as well.
Vasopressor requirement improving. Only on Levophed 10 mics per minute
Vasopressin and Олег-Synephrine discontinued.
Epinephrine discontinued 48 hours ago
As septic shock improving-discontinue hydrocortisone and observe.
Continue to titrate to maintain mean arterial blood pressure greater than 65 mmHg
Lactic acid 10/17/2023: Improving down to 4.
Acute kidney injury: Resolved.
Urinary output improving
Acidosis resolved
Continue LR for maintenance IV fluids 80 cc an hour.
-
Status post exploratory laparotomy, subtotal colectomy.
Operative report reviewed
Bowel ischemia transverse and ascending colon: Noted
will need additional intervention in the next 24-48 hours
- Continue with broad-spectrum antibiotics
- Currently on cefepime/flagyl
discontinue micafungin 10/17/2019.
All cultures negative so far
Pneumonia on x-ray: Continue antibiotics, cannot rule out aspiration
Follow culture
Pulmonary mechanics acceptable.
No significant secretions through ET tube
40% FiO2
Mechanical ventilation settings reviewed
No significant secretions
ABG 10/17/2023. Respiratory alkalosis.
Mechanical ventilation settings adjusted: Tidal volume decreased to 550/respiratory rate down to 16
FiO2 remains at 40% and PEEP pressure of 5.
Pulmonary mechanics unchanged compared to yesterday.
No plans for spontaneous breathing trial-need for surgery in the next 24 to 48 hours.
Sedation with fentanyl drip.
Maintain RASS 0(-1)
Continue propofol, try to minimize.
Atrial fibrillation
Hold anticoagulation for now
Rate is relatively controlled at this point.
- Replete electrolytes with K>4, Mg>2
-
Lactic acidosis improving. Current lactic acid is 4.
Renal function normalized.
Defer to surgery when to restart anticoagulation.
-
Hyperglycemia: Insulin drip, follow Accu-Cheks
goal BG 140-180
- Given Hx of COPD: Not bronchospastic. Nebulizers as needed.
-
- DVT ppx: SCDs for now -high risk for bleeding. Hold anticoagulation for today. Defer to surgery when to restart. There is plans for possible operating room in the next 24 to 48 hours
PPI for GI prophylaxis
-
DNR status noted
Critical care statement: A total of 40 minutes of critical care time was provided for this patient today. This includes management of unstable vital signs, evaluation of the patient at bedside, reviewing the patient's pertinent medical records
including radiographs, microbiology, laboratory evaluations, and discussion with primary team, consultants, pharmacy, nutrition, physical therapy, case management, charge nurse, critical care nursing, and respiratory therapy.
Data:
CT abdomen/pelvis with IV contrast 10/15/2023:
Findings concerning for fecal impaction.
Large amount of fecal material throughout the colon.
Bilateral too small to characterize hypodense renal lesions likely benign cysts.
Severe atherosclerotic vascular disease.
Solid noncalcified left lower lobe pulmonary nodule. Continued surveillance recommended.
CXR 10/15/2023: Findings suggesting mild left lower lobe pneumonia.
Subjective Dataa
Subjective Data
Date of Service:
Date of Service: October 17, 2023
Chief Complaint: Director Heart Follow Up (Septic shock/), Pneumonia Follow Up and Vent Management Follow Up
Subjective:
Sedated
Occasionally following commands. Remains critically ill mechanical ventilation, on vasopressors.
Unable to provide history.
Objective Data
Data Reviewed
Vital Signs / I&O / Oxygen:
Vital Signs
Temp Pulse Resp BP Pulse Ox
99.0 F 100 0 92/72 96
10/17/23 11:19 10/17/23 11:00 10/17/23 11:00 10/17/23 09:05 10/17/23 11:13
Intake and Output
10/16/23 10/17/23 10/18/23
06:59 06:59 06:59
Intake Total 5627.5 / 5923.3 6062.3 / 6265.3 907.7 / 907.7
Output Total 2475 / 2475 2515 / 2565 175 / 175
Balance 3152.5 / 3448.3 3547.3 / 3700.3 732.7 / 732.7
SaO2 [A/C] 96
SaO2 96
Nasal Cannula flow liters per 6
minute
Physical Exam
General: Respiratory Distress (n)
HEENT: Normocephalic
Cardiovascular: S1-S2 and Regular Rhythm
Respiratory: Rhonchi, Non-Labored Respirations and ET Tube (No significant secretion or hemoptysis)
GI: Soft, Other (Absent bowel sounds) and Other (Surgical incision open.)
Neurology: Other (Sedated, mechanical ventilation. Unable to provide history Occasionally coughing. Occasionally moving extremities)
Skin: Warm
Labs/Micro/Reports
Lab Data
10/17/23 03:56
10/17/23 03:56
Laboratory Results
10/17/23
09:26
pH 7.53 H
pCO2 31 L
pO2 163 H
HCO3 25.9
O2 Delivery Level Not Reportable
Microbiology
10/15/23 05:43 Blood/Venous Blood Culture - Preliminary
No Growth in 48 hours- Final report to follow
10/15/23 09:57 Urine Urine Culture - Final
NO GROWTH
[2023-10-17] MEDS: STERILE WATER FOR INJECTION 10 ML IV ×3 (12:00→23:21)
[2023-10-17] MEDS: MAXIPIME 1000 MG IV ×3 (12:00→23:21)
--- NOTE | 2023-10-17 12:00 | PTCARENOTE ---
All systems reassessed. Insulin and vaso gtts off. Right radial Franchesca zeroed and correlates w/ cuff. Family at bedside.Will continue to monitor .
[2023-10-17 12:27] LABS: Glucose - Point of Care 127 mg/dl (70-99)
[2023-10-17] MEDS: NOVOLOG FLEXPEN-LOW RESISTANCE SC ×2 (13:10→17:25)
[2023-10-17] MEDS: FLUSH (NSS) IV ×2 (13:15)
[2023-10-17] MEDS: SOLU-CORTEF IV (13:16)
--- NOTE | 2023-10-17 13:18 | W.PN.HOSP.TC ---
Today's Communication/Plan
-
wean pressors
continue IV abx
continue IVF
follow surgical recs
Assessment / Plan
Assessment / Plan
Assessment:
Septic shock POA
- pressors down to just Levophed, wean per protocol
- s/p stress dose steroids
- continue IVF, follow lactate levels which are improving
- ICU team following
Acute surgical abdomen with stercoral colitis with severe ischemic bowel
- s/p disimpaction in ER
- clinically unstable 10/14
- emergent OR 10/14: ex lap, subtotal colectomy for mesenteric ischemia, ischemic colon
- GS following
- GI signed off
- continue empiric Cefepime/Flagyl, follow cultures. Micafungin stopped.
- continue IV PPI
- tentative repeat OR in 24 hours pending clinical course
Community acquired PNA, LLL
Vent dependent respiratory failure
- sedation/vent management per ICU
- continue empiric Cefepime/Flagyl
JOSE from septic shock
Acute metabolic acidosis
- monitor renal function, Celaya in place for critical I/Os
- continue IVF, bicarbonate
A. Fib with RVR
- likely driven by septic shock
- monitor rates
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
Hypernatremia
Transaminitis likely shock liver
Elevated INR
- follow labs
Hx of Essential HTN
- holding JORY/HCTZ
Type 2 DM
- holding Metformin
- completed critical care insulin protocol
- Diabetes HEAT CURER following
Hx of COPD
Former tobacco use disorder with [id number]-xtir history, quit about 15 years ago
Hypokalemia
- replete as necessary, follow BMP
DVT ppx: SCDs
Code: DNR confirmed with Son Shilo. No heroic measures.
Total Critical Care Time 42 minutes. I was immediately available to the patient and staff. I personally examined, reviewed labs, diagnostic images/reports, interpretations, treatment plans, discussed patient care with other providers and family
or caregivers (if patient is unable to make decisions), entered orders as appropriate and documented the medical record.
Anticipated Discharge: > 48 hours
Subjective/Interval History
-
Date of Service: October 17, 2023
remains on sedation/vent
on 1 pressor
can follow commands occasionally
Objective Data
-
Labs:
Laboratory Results
10/17/23 10/17/23
03:56 09:26
WBC 15.1 H
Hgb 11.5 L
Hct 32.6 L
Plt Count 154 D
HCO3 25.9
Sodium 137
Potassium 3.0 L D
Chloride 101
Carbon Dioxide 28
BUN 48 H
Creatinine 0.9
Glucose 105 H
Calcium 7.4 L
Total Bilirubin 0.9
AST 83 H
ALT 39
Alkaline Phosphatase 46
Vital Signs:
Vital Signs
Temp Pulse Resp BP Pulse Ox
99.0 F 100 0 92/72 96
10/17/23 11:19 10/17/23 11:00 10/17/23 11:00 10/17/23 09:05 10/17/23 11:13
I&O
10/16/23 10/17/23 10/18/23
06:59 06:59 06:59
Intake Total 5627.5 / 5923.3 6062.3 / 6265.3 907.7 / 907.7
Output Total 2475 / 2475 2515 / 2565 175 / 175
Balance 3152.5 / 3448.3 3547.3 / 3700.3 732.7 / 732.7
Physical Exam
-
General: Intubated
HEENT: Normocephalic and Atraumatic
Respiratory: Clear to Auscultation; Negative Wheezes
Cardiac: Regular Rhythm and S1/S2
GI: Soft
Genito-urinary: No Costovertebral Tender
Neuro: Sedated
Hematologic / Lymphatic: No Lymphadenopathy
Psych: Calm
Data Reviewed
-
Critical Care Time (in minutes): 42
Labs: Labs Reviewed by me
--- NOTE | 2023-10-17 13:42 | CM ---
CM following re: discharge planning.
Discussed in Rounds, reviewed pt's chart, met with pt. Pt's son Shilo Marin III and pt's spouse at bedside. Per Rounds meeting, pt remains critically ill, requiring multiple vasopressors, sedated, intubated on mechanical ventilation, plan for possible
operating room in the next 24 to 48 hours.
D/C plan: uncertain at this time and will depend on pt's progress.
CM will follow with discharge plan updates as hospitalization progresses
--- NOTE | 2023-10-17 14:06 | WOUNDNOTE ---
IVON RN NOTE: Patient admitted with sepsis and severe stercoral colitis. S/P subtotal colectomy for bowel ischemia of transverse and ascending colon on 10/15/23. Has Abthera wound vac in use, is vented and has NGT. Patient for possible surgery
tomorrow if stable for intracorporeal anastomosis vs ileostomy. Stoma sited as requested, difficult to do since vented, limited mobility and has large abdominal wound vac dressing. Unable to visualize umbilicus, estimated location close to trac pad
on dressing. Assessed lying, able to sit patient up in bed, adjusted swenson slightly. LUQ marked 10cm from midline and 4cm proximal from umbilical line. LLQ marked 9.5cm from midline and 2cm distal from umbilical line. RUQ marked 10cm from midline
and 4cm proximal from umbilical line. RLQ marked 10cm from midline and 2cm distal from umbilical line. Son at bedside, aware of my role and that ostomy nurse will follow for teaching if ileostomy needed. Nurse Holder in , confirmed sacrum is intact.
[2023-10-17 14:53] LABS: Blood Urea Nitrogen 49 mg/dl (9-20); Calcium 7.8 mg/dl (8.4-10.2); Carbon Dioxide 32 mmol/L (22-30); Chloride 101 mmol/L (98-107); Estimated Creatinine Clearance 84 ml/min; Glucose 126 mg/dl (70-99); Potassium 4.2 mmol/L (3.5-5.1); Sodium 138 mmol/L (135-145); eGFR > 60.00
--- NOTE | 2023-10-17 15:45 | PTCARENOTE ---
All systems reassessed. Levo, prop, LR and Fentanyl gtts running see flowsheet. Armboard placed on right arm for Wilfredo. Hygiene performed, will continue to monitor.
[2023-10-17] MEDS: LOVENOX 40 MG SC (17:09)
[2023-10-17 17:35] LABS: Glucose - Point of Care 128 mg/dl (70-99)
--- NOTE | 2023-10-17 23:25 | PTCARENOTE ---
pt awake, not following commands. shaking the side rails. PRN fentanyl given and propofol increased.
[2023-10-18] VITALS: BP 89/67
[2023-10-18] MEDS: NOVOLOG FLEXPEN-LOW RESISTANCE SC ×4 (00:13→23:20)
[2023-10-18 00:23] LABS: Glucose - Point of Care 135 mg/dl (70-99)
[2023-10-18 01:00] VITALS: BP 95/67
[2023-10-18 01:03] LABS: Triglycerides 123 mg/dl (10-149)
[2023-10-18] MEDS: SUBLIMAZE 100 IV ×3 (03:36→17:28)
[2023-10-18 04:25] LABS: Hematocrit 30.8 % (39.0-52.0); Hemoglobin 10.6 g/dL (13.0-18.0); Mean Corp Hgb Conc. 34.4 g/dL (33.0-37.0); Mean Corpuscular Hgb 30.5 pg (27.0-31.0); Mean Corpuscular Volume 88.5 fL (80.0-94.0); Mean Platelet Volume 10.1 fL (7.4-10.4); Platelet Count 126 10^3/uL (130-400); Red Blood Cell Count 3.48 10^6/uL (4.70-6.10); Red Cell Dist. Width 13.5 % (11.5-14.5); White Blood Cell Count 12.6 10^3/uL (4.8-10.8)
[2023-10-18 04:29] LABS: B.E. 4.4 mmol/L; HCO3 28.4 mmol/L (21-28); O2 Saturation % 98.4 % (94-98); PCO2 39 mmHg (35-48); PO2 190 mmHg (83-108); pH 7.47 (7.35-7.45)
[2023-10-18 04:30] LABS: O2 Therapy VENT
[2023-10-18 04:48] LABS: ALT (SGPT) 49 U/L (0-50); AST (SGOT) 74 U/L (17-59); Alkaline Phosphatase 56 U/L (38-126); Blood Urea Nitrogen 39 mg/dl (9-20); Calcium 7.8 mg/dl (8.4-10.2); Carbon Dioxide 28 mmol/L (22-30); Chloride 105 mmol/L (98-107); Estimated Creatinine Clearance 94 ml/min; Glucose 126 mg/dl (70-99); Magnesium 2.3 mg/dl (1.6-2.3); Potassium 3.9 mmol/L (3.5-5.1); Sodium 138 mmol/L (135-145); Total Bilirubin 0.7 mg/dl (0.2-1.3); Total Protein 3.8 g/dl (6.3-8.2); eGFR > 60.00
[2023-10-18 05:08] LABS: % Basophils 0.1 % (0-2); % Eosinophils 0.7 % (0-6); % Immature Granulocytes 1.1 % (0-0.5); % Lymphocytes 8.3 % (20.5-51.1); % Monocytes 7.1 % (1.7-9.3); % Neutrophils 82.7 % (42.2-75.2); Absolute Eosinophils 0.1 10^3/uL (0-0.7); Absolute Immature Granulocytes 0.1 10^3/uL (0-0.05); Absolute Lymphocytes 1.1 10^3/uL (1.2-3.4); Absolute Monocytes 0.9 10^3/uL (0.1-0.6); Absolute Neutrophils 10.4 10^3/uL (1.4-6.5); Nucleated Red Blood Cells % 0 % (-)
[2023-10-18] MEDS: STERILE WATER FOR INJECTION 10 ML IV ×2 (05:13→11:56)
[2023-10-18] MEDS: MAXIPIME 1000 MG IV (05:13)
[2023-10-18] MEDS: LEVOPHED 258 MG IV ×2 (05:15→16:52)
--- NOTE | 2023-10-18 05:29 | PTCARENOTE ---
bed bath given this AM. pt reaching for tubes during turns. labs drawn.
[2023-10-18 06:00] VITALS: BMI 30.1
[2023-10-18] MEDS: DUONEB 3 ML INH ×3 (07:47→20:12)
--- NOTE | 2023-10-18 08:33 | PN.DE.MGMTRT ---
Insulin Management
- -
10/18/2023: Diabetes Management Consult Follow up
Patient admitted with lower abdominal abdominal pain, N&V. PMH: PAF, HTN, COPD, BPH, former tobacco smoker T2DM and allergic rhinitis. . CT A/P-->Stercoral colitis with severe constipation s/p disimpaction in the ER, s/p ex lap with subtotal
colectomy- due to severe ischemic bowel on 10/15/2023. Noted for Septic shock requiring multiple pressors, LLL Community acquired PNA and Vent dependent respiratory failure.
Prior to admission, pt was taking Metformin 500mg BID. Current A1C 6.2%.
Pt is sedated and intubated on mechanical ventilation. NPO. Unable to interview or discuss diabetes mgt.
10/16 Glycemic protocol stopped Novolog low corrective insulin Q 6 hours started. Glucose range 97 to 135, fasting this AM 126. Patient may return to OR. Will make no change.
Will follow for further needed adjustments.
Diabetes History
- -
Type of Diabetes: 2
Pre-Admission Diabetes Regimen
10/17/23 10/18/23
14:23 04:17
Creatinine 0.9 0.8
Lab Results
Hemoglobin A1c 6.2 % (4.0-5.6) H 10/16/23 03:28
Insulin Pump Settings
IP Diabetes Regimen
10/17/23 10/17/23 10/17/23
12:16 14:23 17:23
Glucose 126 H
POC Glucose 127 H 128 H
10/18/23 10/18/23
00:12 04:17
Glucose 126 H
POC Glucose 135 H
Patient Education
--- NOTE | 2023-10-18 08:36 | W.PN.HOSP.TC ---
Today's Communication/Plan
-
repeat OR timing per GS based off pressor requirements
continue IV Abx
continue vent/sedation management and ICU level of care
Assessment / Plan
Assessment / Plan
Assessment:
Septic shock POA
- pressors down to just Levophed, wean per protocol
- s/p stress dose steroids
- continue IVF, follow lactate levels which are improving
- ICU team following
Acute surgical abdomen with stercoral colitis with severe ischemic bowel
- s/p disimpaction in ER
- clinically unstable 10/14
- emergent OR 10/14: ex lap, subtotal colectomy for mesenteric ischemia, ischemic colon
- GS following
- GI signed off
- continue empiric Cefepime/Flagyl, follow cultures. Micafungin stopped.
- continue IV PPI
- repeat OR timing per GS pending clinical course
Community acquired PNA, LLL
Vent dependent respiratory failure
- sedation/vent management per ICU
- continue empiric Cefepime/Flagyl
JOSE from septic shock
Acute metabolic acidosis
- monitor renal function, Celaya in place for critical I/Os
- continue IVF, bicarbonate
A. Fib with RVR
- likely driven by septic shock
- monitor rates
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
Hypernatremia
Transaminitis likely shock liver
Elevated INR
- follow labs
Hx of Essential HTN
- holding JORY/HCTZ
Type 2 DM
- holding Metformin
- completed critical care insulin protocol
- Diabetes INPUT OUTPUT CLERK following
Hx of COPD
Former tobacco use disorder with 48-wzyj-eyqn history, quit about 15 years ago
Hypokalemia
- replete as necessary, follow BMP
DVT ppx: Lovenox
Code: DNR confirmed with Son Shilo. No heroic measures.
Total Critical Care Time 42 minutes. I was immediately available to the patient and staff. I personally examined, reviewed labs, diagnostic images/reports, interpretations, treatment plans, discussed patient care with other providers and family
or caregivers (if patient is unable to make decisions), entered orders as appropriate and documented the medical record.
Anticipated Discharge: > 48 hours
Subjective/Interval History
-
Date of Service: October 18, 2023
remains on Levophed 12/hr
Objective Data
-
Labs:
Laboratory Results
10/18/23
04:17
WBC 12.6 H
Hgb 10.6 L
Hct 30.8 L
Plt Count 126 L
HCO3 28.4 H
Sodium 138
Potassium 3.9
Chloride 105
Carbon Dioxide 28
BUN 39 H
Creatinine 0.8
Glucose 126 H
Calcium 7.8 L
Total Bilirubin 0.7
AST 74 H
ALT 49
Alkaline Phosphatase 56
Vital Signs:
Vital Signs
Temp Pulse Resp BP Pulse Ox
98.9 F 56 16 95/67 97
10/18/23 07:42 10/18/23 07:48 10/18/23 07:48 10/18/23 01:00 10/18/23 07:48
I&O
10/17/23 10/18/23 10/19/23
06:59 06:59 06:59
Intake Total 6062.3 / 6265.3 3258.8 / 3258.8
Output Total 2515 / 2565 1125 / 1125
Balance 3547.3 / 3700.3 2133.8 / 2133.8
Physical Exam
-
General: No Apparent Distress and Intubated
HEENT: Normocephalic
Respiratory: Clear to Auscultation; Negative Wheezes
Cardiac: Regular Rhythm and S1/S2
Neuro: Sedated
Data Reviewed
-
Critical Care Time (in minutes): 42
Labs: Labs Reviewed by me
[2023-10-18] MEDS: FLAGYL 500 MG 100 IV ×3 (08:47→23:41)
[2023-10-18] MEDS: PROTONIX IV 40 MG IV ×2 (08:47→19:35)
[2023-10-18] MEDS: NSS (PRESERVATIVE FREE) 10 ML IV ×2 (08:47→19:35)
[2023-10-18 09:48] VITALS: BP 103/64
--- NOTE | 2023-10-18 09:50 | PTCARENOTE ---
Rec'd care of patient at 0700. Patient intubated and sedated. Pupils equal and reactive, +3mm. Opening eyes to verbal and tactile stimuli. MAEx4. Does not follow commands. Afib on tele monitor. Rate controlled. Trace anasarca. +Doppler pulses. #8
ett, 22 @ the lip. A/C 16/550/5/40%. Pulse ox 96-97%. Lung sounds diminished throughout. Bowel sounds absent. Wound vac dressing c/d/i. Right nare NGT to low intermittent suction. Celaya draining kaleigh urine. Order changed for critical I/O.
Fentanyl/Propofol/LR/Levophed infusing through right triple lumen PICC. Right radial effie zeroed and correlating with BP cuff. VSS. Plan for OR today.
--- NOTE | 2023-10-18 10:48 | W.PN.UPDATE ---
Update Note
Progress Note Update
Pt is POD3 s/p emergent damage control ex-lap and subtotal colectomy for ischemia now with open abdomen
He has improved his CV status but remains on 12mcg levophed, lactic improving but remains elevated, UOP adequate, Cr WNL, Hb drifting down to 10.6 today and new thrombocytopenia (126K)
Considering his likely malnourished state and current pressor requirements, I do not feel anastomosis is a safe option. I recommend washout and end ileostomy creation with subsequent return to ICU for ongoing resuscitation. I discussed this with the
ICU team, Dr Martin the operating surgeon from the index case, as well as the patient's . All are in agreement with this plan. Even with this limited procedure there are significant risks including stroke, [place], , bleeding and need for
transfusion, need for further operations in the future. I also emphasized his ileostomy may be permanent as he may never be a good candidate for reversal surgery. Pt responded that she wants us to do what is necessary in the safest way
possible, which is consistent with our plan.
For OR today for re-ex-lap, washout, end ileostomy creation
--- NOTE | 2023-10-18 11:31 | CHAP ---
Emotional and spiritual support provided for Shilo and his , aPige, at bedside. Prayers shared, prayer blanket given. Will follow.
[2023-10-18] MEDS: LR 1000 IV ×2 (11:56→23:42)
[2023-10-18] MEDS: ROCEPHIN 1000 MG IV (11:56)
[2023-10-18 12:00] VITALS: BP 98/65
--- NOTE | 2023-10-18 12:00 | PTCARENOTE ---
No changes in assessment. Patient washed with CHG for surgery.
[2023-10-18] MEDS: FLUSH (NSS) 1 FLUSH IV ×2 (12:04→12:05)
[2023-10-18 12:16] LABS: Glucose - Point of Care 113 mg/dl (70-99)
--- NOTE | 2023-10-18 12:55 | W.PN.INTV ---
Today's Communication / Plan
Recommendations
Mechanical ventilation settings adjusted
Continue antibiotics for now
Operating room today
Wean down vasopressors as able
Continue maintenance IV fluids
Eventual to restart anticoagulation
Continue IV sedation
Assessment
-
Assessment: 73-year-old male former tobacco smoker with past medical history of A-fib on Eliquis, hypertension, DM type II, BPH, history of COPD and allergic rhinitis who presents with lower abdominal pain, nausea/vomiting. Symptoms started last
night and he reports constipation for few days. Last BM about 3 days ago. Initial vitals in the ER showed he was in rapid A-fib with VR of 139 bpm, afebrile to 98.4 �F, breathing at 27 breaths minute, hypotensive to 76/59, and SpO2 93% on room
air. EKG confirmed A-fib with RVR. Labs showed leukocytosis to 20.4, creatinine 1.5, lactate 7.4, and T. bili 1.7. Blood culture collected. CT abdomen/pelvis showed fecal impaction without evidence for bowel obstruction. CXR showed retrocardiac
opacification concerning for left lower lobe pneumonia. He was given aztreonam/Flagyl in the ER, fentanyl, morphine, total of 3 L NS 0.9% and Zofran. He was admitted to the ICU for close monitoring with critical care services consulted for
additional management/recommendations.
Chronic conditions SKIVER COUNTER: Paroxysmal A-fib on Eliquis, hypertension, DM type II, BPH, history of Lyme disease complicated by arthritis, history of COPD, former tobacco use, allergic rhinitis
Impression:
#Stercoral colitis with severe constipation s/p disimpaction in the ER
Status post expiratory laparotomy/subtotal colectomy-diagnosis bowel ischemia. 10/15/2023
#Abdominal pain due to above
#Septic shock due to above in the setting of left lower lobe CAP
#Lactic acidosis
#CAP involving left lower lobe/right lower lobe
#Acute respiratory failure with hypoxia-requiring intubation mechanical ventilation.
Intubated 10/15/2023
#JOSE
#A-fib with RVR
#Elevated INR
#Transaminitis with elevated T. bili + elevated ALP
#Abnormal urinalysis with +1 leukocyte esterase
#Hypertension
#Reported history of COPD
#Former tobacco use disorder with 35-iaio-lhkv history, quit about 15 years ago
Plan:
Remains critically ill-vasopressor requirements improving.
Remains on mechanical ventilation.
-
Septic shock: Intra-abdominal source. Possible pneumonia as well-possibly aspiration.
Continue vasopressors Levophed-12 mics per minute.
Although vasopressor be discontinued for longer than 24 hours.
Continue to hold hydrocortisone.Cortisol was greater than 123
Continue to titrate to maintain mean arterial blood pressure greater than 65 mmHg
Lactic acid 10/17/2023: Improving down to 4.
Acute kidney injury: Resolved.
Urinary output improving
Acidosis resolved
-
Continue LR for maintenance IV fluids 80 cc an hour.
-
Status post exploratory laparotomy, subtotal colectomy.
Bowel ischemia transverse and ascending colon: Noted
Discussed with surgery: Today for closure of abdomen, creation of ileostomy.
- Continue with broad-spectrum antibiotics to cover intra-abdominal source as well as pneumonia.
- Currently on cefepime/flagyl-will consider 5 to 7-day course.
discontinued micafungin 10/17/2019.
All cultures negative so far
Pneumonia on x-ray: Continue antibiotics, cannot rule out aspiration
Follow culture
Pulmonary mechanics acceptable.
No significant secretions through ET tube
40% FiO2
Mechanical ventilation settings reviewed
No significant secretions
ABG 10/17/2023. Respiratory alkalosis.
Pulmonary mechanics improved compared to yesterday. Peak pressure 22
ABG 7.40 /190 on 10/18/2023. Ventilator has been adjusted
Hopefully can try spontaneous breathing trial tomorrow if stable.
Sedation with fentanyl drip.
Maintain RASS 0(-1)
Continue propofol, try to minimize.
Atrial fibrillation
Hold anticoagulation for now
Rate is relatively controlled at this point.
-
Renal function normalized.
Defer to surgery when to restart anticoagulation.
-
Hyperglycemia: Insulin sliding scale.
Insulin drip has been discontinued
goal BG 140-180
Given Hx of COPD: Not bronchospastic. Nebulizers as needed.
-
DVT ppx: SCDs for now -high risk for bleeding. Hold anticoagulation for today. Defer to surgery when to restart. Patient heading to the OR today 10/18/2023.
PPI for GI prophylaxis
-
DNR status noted
Critical care statement: A total of 37 minutes of critical care time was provided for this patient today. This includes management of unstable vital signs, evaluation of the patient at bedside, reviewing the patient's pertinent medical records
including radiographs, microbiology, laboratory evaluations, and discussion with primary team, consultants, pharmacy, nutrition, physical therapy, case management, charge nurse, critical care nursing, and respiratory therapy.
Data:
CT abdomen/pelvis with IV contrast 10/15/2023:
Findings concerning for fecal impaction.
Large amount of fecal material throughout the colon.
Bilateral too small to characterize hypodense renal lesions likely benign cysts.
Severe atherosclerotic vascular disease.
Solid noncalcified left lower lobe pulmonary nodule. Continued surveillance recommended.
CXR 10/15/2023: Findings suggesting mild left lower lobe pneumonia.
Subjective Dataa
Subjective Data
Date of Service:
Date of Service: October 18, 2023
Chief Complaint: Social Psychologist Follow Up (Septic shock/), Pneumonia Follow Up and Vent Management Follow Up
Subjective:
Remains critically ill, intubated on mechanical ventilation
Requiring vasopressors-Levophed. Improved requirements overall.
Review of Systems
General: Unobtainable - Sedation
Objective Data
Data Reviewed
Vital Signs / I&O / Oxygen:
Vital Signs
Temp Pulse Resp BP Pulse Ox
99.1 F 65 14 98/65 96
10/18/23 11:28 10/18/23 12:00 10/18/23 12:00 10/18/23 12:00 10/18/23 12:00
Intake and Output
10/17/23 10/18/23 10/19/23
06:59 06:59 06:59
Intake Total 6062.3 / 6265.3 3258.8 / 3468.5 1102.7 / 1102.7
Output Total 2515 / 2565 1125 / 1225 550 / 550
Balance 3547.3 / 3700.3 2133.8 / 2243.5 552.7 / 552.7
SaO2 [A/C] 96
SaO2 96
Nasal Cannula flow liters per 6
minute
Physical Exam
General: Respiratory Distress (n)
HEENT: Normocephalic
Cardiovascular: S1-S2 and Regular Rhythm
Respiratory: Rhonchi, Non-Labored Respirations and ET Tube (No significant secretion or hemoptysis)
GI: Soft, Other (Absent bowel sounds) and Other (Surgical incision open.)
Neurology: Other (Sedated, mechanical ventilation. Unable to provide history Occasionally coughing. Occasionally moving extremities)
Skin: Warm
Labs/Micro/Reports
Lab Data
10/18/23 04:17
10/18/23 04:17
Laboratory Results
10/18/23
04:17
pH 7.47 H
pCO2 39
pO2 190 H
HCO3 28.4 H
O2 Delivery Level Vent
Microbiology
10/15/23 05:43 Blood/Venous Blood Culture - Preliminary
No Growth in 72 hours- Final report to follow
10/15/23 09:57 Urine Urine Culture - Final
NO GROWTH
--- NOTE | 2023-10-18 13:09 | PTCARENOTE ---
Report given to OR. VSS.
--- NOTE | 2023-10-18 13:14 | CM ---
CM following re: discharge planning.
Discussed in Rounds, reviewed pt's chart, met with pt. Pt's spouse and son at bedside.
Per Rounds meeting, pt is POD3 s/p emergent damage control ex-lap and subtotal colectomy for ischemia. For OR today for re-ex-lap, washout, end ileostomy creation. pt remains intubated and a plan for possible extubation tomorrow.
PT and OT will evaluate the pt when clinically appropriate to determine a level of care at discharge.
D/C plan: uncertain at this time and will depend on pt's progress.
CM will follow with discharge plan updates as hospitalization progresses
[2023-10-18] MEDS: DIPRIVAN 100 IV (13:35)
--- NOTE | 2023-10-18 13:52 | PTCARENOTE ---
Patient transported to OR by OR staff.
--- NOTE | 2023-10-18 15:51 | W.IMMPOSTOP ---
Surgical Immed Post Op Note
-
Primary Surgeon: Debra
Assisting: Kayla Sparks PA-C
Pre-op Diagnosis: Open abdomen, bowel in discontinuity
Post-op Diagnosis: Ischemic colon, open abdomen, bowel in discontinuity
Procedure Performed: Exploratory laparotomy, partial colectomy (sigmoid), creation end ileostomy
Anesthesia Type: GETA
Specimen / Cultures: Sigmoid colon stump
Estimated Blood Loss: 5cc
Complications: None immediate
Operative Findings: Patchy necrosis of sigmoid stump, resected back with BARRETT 80mm purple load stapler and tagged with 2-0 prolene; end ileostomy with stained mucosa, perfusion verified with ICG
--- NOTE | 2023-10-18 15:54 | OR.RPT ---
Operative Report
Operative Report
Primary Surgeon: Debra
Assisting: Kayla Sparks PA-C
Pre-op Diagnosis: Open abdomen, bowel in discontinuity
Post-op Diagnosis: Ischemic colon, open abdomen, bowel in discontinuity
Procedure Performed: Exploratory laparotomy, partial colectomy (sigmoid), creation end ileostomy
Anesthesia Type: GETA
Specimen / Cultures: Sigmoid colon stump
Estimated Blood Loss: 5cc
Complications: None immediate
Operative Findings: Patchy necrosis of sigmoid stump, resected back with BARRETT 80mm purple load stapler and tagged with 2-0 prolene; end ileostomy with stained mucosa, perfusion verified with ICG
Date of Surgery: 10/18/23
Indications: 73M three days post-exploratory laparotomy and subtotal colectomy for ischemic colon. He was left in discontinuity and had been improving but plateaued overnight and has remained on levophed since then without ability to wean. Plan
today was re-exploratory laparotomy, washout, and end ileostomy.
Description of procedure: The patient was placed on the operating table in the supine position. He was intubated already. A time-out was completed verifying correct patient, procedure, site, positioning, and special equipment prior to beginning this
procedure. The abdomen was prepped and draped in the usual sterile fashion. The abthera vac dressing was taken down and the abdomen entered. Filmy adhesions were gently bluntly disrupted and bowel was mobilized. The abdomen was irrigated with warm
sterile saline and effluent ran clear. The sigmoid stump was examined and noted to have signs of patchy necrosis. The stump was resected back to healthy tissue using a single fire of an 80mm purple load BARRETT stapler. A 2-0 prolene tag was placed on
the stump and it was returned to its neutral position in the pelvis. Attention was turned to the ileum. The small bowel was run in its entirety and found to be viable. Mesentery was resected back a few cm and the ileal stump was monitored and
appeared viable. A full thickness circular incision was made at the site of the stoma nurse charisma on the skin in the right side of the abdomen. Subcutaneous fat was cored out and the anterior fascia exposed. The fascia was incised in cruciate fashion
and 2 fingers were passed through the abdominal wall defect with ease. The ileal stump was gently grasped with a lit and pulled through the abdominal wall defect. It passed easily without tension or tightness. The serosa looked viable. The
midline wound was then closed with running #1 PDS stratafix suture and covered with a blue towel. The stoma was matured with 3-0 vicryl sutures. The mucosa appeared dark and there was concern for poor perfusion. The Spy system was deployed and ICG
injected by Anesthesia. The stoma perfused green both on serosal side and mucosa. At this point, an aquacel dressing was placed at the midline and a stoma appliance was placed.
The patient tolerated the procedure well and was taken back to the ICU for ongoing resuscitation.
--- NOTE | 2023-10-18 16:35 | PTCARENOTE ---
Rec'd patient back from OR at 1600. Patient remains intubated and sedated. Opening eyes to stimuli. Afib on tele monitor. Rate in the 70's. Right radial effie zeroed and transduced. Levophed infusing at 12 mcgs for MAP>65. Levophed/Fent/Prop/LR
infusing through right triple lumen PICC. Pulse ox 93%. Lung sounds diminished throughout. #8 ett positioned on the left @ 22cm. A/C 14/500/5/40%. NGT placed back to low intermittent suction. Midline incision covered with aquacell. Scant shadowing.
Ileostomy stoma pink/red. Absent BS. Celaya in place for critical I/O. Vitals stable. at bedside.
[2023-10-18 16:54] VITALS: BP 101/73
[2023-10-18] MEDS: NOVOLOG FLEXPEN-LOW RESISTANCE 1 UNITS SC (17:11)
[2023-10-18] MEDS: LOVENOX 40 MG SC (17:11)
[2023-10-18 17:23] LABS: Glucose - Point of Care 159 mg/dl (70-99)
[2023-10-18 23:30] LABS: Glucose - Point of Care 143 mg/dl (70-99)
[2023-10-18] MEDS: SUBLIMAZE 50 MCG IV (23:38)
[2023-10-19] VITALS (15 sets, daily range): BP systolic 107–149; BP diastolic 69–99; PULSE 2–107; BMI 30.7
[2023-10-19] MEDS: SUBLIMAZE 100 IV ×2 (00:13→06:57)
[2023-10-19] MEDS: DIPRIVAN 100 IV ×2 (00:18→06:56)
--- NOTE | 2023-10-19 00:25 | PTCARENOTE ---
pt awake shaking side rails. PRN fentanyl given and propofol increased.
[2023-10-19 04:14] LABS: B.E. 1.5 mmol/L; HCO3 26.6 mmol/L (21-28); O2 Saturation % 98.3 % (94-98); PCO2 43 mmHg (35-48); PO2 185 mmHg (83-108)
[2023-10-19 04:34] LABS: ALT (SGPT) 47 U/L (0-50); AST (SGOT) 53 U/L (17-59); Albumin 2.2 g/dl (3.5-5.0); Alkaline Phosphatase 56 U/L (38-126); Blood Urea Nitrogen 28 mg/dl (9-20); Calcium 7.6 mg/dl (8.4-10.2); Carbon Dioxide 28 mmol/L (22-30); Chloride 105 mmol/L (98-107); Estimated Creatinine Clearance > 125 ml/min; Glucose 142 mg/dl (70-99); Magnesium 1.9 mg/dl (1.6-2.3); Potassium 4.4 mmol/L (3.5-5.1); Sodium 139 mmol/L (135-145); Total Bilirubin 0.7 mg/dl (0.2-1.3); Total Protein 4.2 g/dl (6.3-8.2); Triglycerides 92 mg/dl (10-149); eGFR > 60.00
--- NOTE | 2023-10-19 04:52 | PTCARENOTE ---
complete bed bath given. labs drawn. titrating Levophed
[2023-10-19 05:04] LABS: Hematocrit 33.5 % (39.0-52.0); Mean Corp Hgb Conc. 32.8 g/dL (33.0-37.0); Mean Corpuscular Volume 91.3 fL (80.0-94.0); Mean Platelet Volume 10.1 fL (7.4-10.4); Platelet Count 139 10^3/uL (130-400); Red Blood Cell Count 3.67 10^6/uL (4.70-6.10); Red Cell Dist. Width 13.6 % (11.5-14.5); White Blood Cell Count 11.1 10^3/uL (4.8-10.8)
[2023-10-19] MEDS: NOVOLOG FLEXPEN-LOW RESISTANCE SC ×4 (05:04→23:41)
[2023-10-19] MEDS: DUONEB 3 ML INH (06:07)
[2023-10-19 07:29] LABS: % Immature Granulocytes 1.6 % (0-0.5); % Lymphocytes 7.9 % (20.5-51.1); % Monocytes 10.8 % (1.7-9.3); % Neutrophils 79.7 % (42.2-75.2); Absolute Immature Granulocytes 0.2 10^3/uL (0-0.05); Absolute Lymphocytes 0.9 10^3/uL (1.2-3.4); Absolute Monocytes 1.2 10^3/uL (0.1-0.6); Absolute Neutrophils 8.8 10^3/uL (1.4-6.5); Nucleated Red Blood Cells % 0 % (-)
--- NOTE | 2023-10-19 07:43 | W.PN.ANS.POP ---
Anesthesia Post Operative
- Anesthesia Post Op Note
Vital Signs Stable-See Nursing Note: Yes (remains on Levophed gtt)
Airway Patent: Yes (remains on vent with ETT)
Adequate Pain Control: Yes
Change in Mental Status: No (remains on propofol and fentanyl gtts)
Current Postoperative Nausea & Vomiting: No
Anesthesia Complications: No
General Anesthetic Recall: No
Unplanned Admission: No
Post Op Hydration Adequate: Yes
[2023-10-19] MEDS: FLAGYL 500 MG 100 IV ×2 (07:53→16:11)
[2023-10-19] MEDS: NSS (PRESERVATIVE FREE) 10 ML IV ×2 (07:53→21:56)
[2023-10-19] MEDS: PROTONIX IV 40 MG IV ×2 (07:53→21:56)
--- NOTE | 2023-10-19 08:00 | PN.DE.MGMTRT ---
Insulin Management
- -
10/19/2023: Diabetes Management Consult Follow up
Patient admitted 10/14 with lower abdominal abdominal pain, N&V. PMH: PAF, HTN, COPD, BPH, former tobacco smoker T2DM and allergic rhinitis. . CT A/P-->Stercoral colitis with severe constipation s/p disimpaction in the ER, s/p ex lap with subtotal
colectomy- due to severe ischemic bowel on 10/15/2023. Noted for Septic shock requiring multiple pressors, LLL Community acquired PNA and Vent dependent respiratory failure.
Prior to admission, pt was taking Metformin 500mg BID. Current A1C 6.2%.
Pt is sedated and intubated on mechanical ventilation. NPO. Unable to interview or discuss diabetes mgt.
10/17 Patient returned to OR 10/17 for additional bowel surgery with ileostomy. Patient receiving Novolog low corrective insulin Q 6 hours. Glucose range 113 to 159, fasting this AM 142.
Will follow for further needed adjustments.
Diabetes History
- -
Type of Diabetes: 2
Pre-Admission Diabetes Regimen
10/19/23
04:09
Creatinine 0.6 L
Lab Results
Hemoglobin A1c 6.2 % (4.0-5.6) H 10/16/23 03:28
Insulin Pump Settings
IP Diabetes Regimen
10/18/23 10/18/23 10/18/23
12:03 17:10 23:18
Glucose
POC Glucose 113 H 159 H 143 H
10/19/23
04:09
Glucose 142 H
POC Glucose
Patient Education
[2023-10-19] MEDS: LOPRESSOR 2.5 MG IV ×3 (08:55→17:06)
--- NOTE | 2023-10-19 09:15 | PTCARENOTE ---
Rec'd care of patient at 0700. Intubated and sedated. Sedation weaned for planned SBT. Drowsy but arousable. Following commands. Pupils equal and reactive. +3mm; sluggish. Afib on tele monitor. Once Fentanyl and Propofol turned off, RT at bedside
assessing patient's ability to wean. HR increased to 150-160's. Director Of Quality Improvement notified. RN advised to administer PRN IV Lopressor. HR responsive to dose. Orders placed for scheduled IV Lopressor. Director Of Quality Improvement requesting additional dose to be
administered before attempting SBT. Sedation kept off. Patient calm and cooperative. #8 ett @22cm. A/C 14/500/5/40%. Lung sounds diminished throughout. Bowel sounds auscultated. Small amount of stool from ileostomy. Stoma red and budded. Right nare
NGT to low intermittent suction. Midline incision dressing intact. Celaya in place for critical I/O. Vitals stable. Levophed weaned off at 0900. Right radial effie zeroed and correlating with BP cuff.
--- NOTE | 2023-10-19 09:47 | WOUNDNOTE ---
WOC RN NOTE: Reviewed chart, assessed stoma/output. Dr. Richardson at bedside. Plan is for WOC RN to change pouch and remove midline dressing on Monday, 10/23. Stoma slightly budded with some liquid stool. Ostomy supplies in room. Will follow up for
ostomy teaching and pouch change on 10/23.
--- NOTE | 2023-10-19 11:17 | W.PN.GS2 ---
Today's Communication / Plan
-
Wean vent as lv
Cont IV abx
Hold full dose AC, ppx dose OK
Assessment / Plan
-
73 yo male with h/o of AFIB on Eliquis presenting with abdominal pain with fecal impaction on initial CT, disimpacted in ED but without relief in pain. Taken to the OR emergently on 10/15 as he clinically deteriorated with increasing abdominal pain.
POD4 s/p ex lap with subtotal colectomy in a damage control operation, POD1 s/p segmental sigmoid resection, end ileostomy and abd wound closure
Afebrile, pressors now off
WBC improved
Day 5 without nutrition
--wean vent to extubate as lv
--C/W NGT to suction, if it comes out during extubation, no need to replace
--Cont IV abx
--VTE ppx with SCD's and sq heparin, please continue to hold full strength AC at this time
--Medical and critical care management as per displayer and hospitalist teams
Subjective Data
-
Date of Service: October 19, 2023
Intubated/sedated but rousable, asks 'why am i here?'
Objective Data
-
Intake and Output
10/18/23 10/19/23 10/20/23
06:59 06:59 06:59
Intake Total 3258.8 / 3468.5 3227.1 / 3335.7 289.7 / 289.7
Output Total 1125 / 1225 1425 / 1575 430 / 430
Balance 2133.8 / 2243.5 1802.1 / 1760.7 -140.3 / -140.3
Intake:
IV fluids (Total) 3258.8 / 3468.5 3027.1 / 3135.7 289.7 / 289.7
Insulin 4.2 / 4.2
Levo 506.7 / 529.2 487.6 / 502.6 22.5 / 22.5
Lr 1,000 ml @ 150 mls/hr IV . 2200 / 2280 240 / 240
[id number] PAULINA Rx#:[id number]
Lr 1,000 ml @ 80 mls/hr IV . 1760 / 1840 240 / 240
[id number] PAULINA Rx#:[id number]
Propofol 196.9 / 209.1 209.5 / 215.6 12.2 / 12.2
fentanyl 315 / 330 330 / 337.5 15.0 / 15.0
vaso 36 / 36
IV piggybacks 200 / 200
Output:
Liquid stool amount 200 / 200
Ileostomy 200 / 200
Urine, Celaya 1125 / 1225 1425 / 1575 230 / 230
Vital Signs
Temp Pulse Resp BP Pulse Ox
98.8 F 108 13 108/75 96
10/19/23 07:25 10/19/23 09:00 10/19/23 09:00 10/19/23 08:55 10/19/23 11:04
Lab Results
10/19/23 04:09
10/19/23 04:09
Calcium 7.6 mg/dl (8.4-10.2) L 10/19/23 04:09
Phosphorus 6.1 mg/dl (2.5-4.5) H 10/16/23 03:28
Magnesium 1.9 mg/dl (1.6-2.3) 10/19/23 04:09
Total Bilirubin 0.7 mg/dl (0.2-1.3) 10/19/23 04:09
Direct Bilirubin 0.6 mg/dl (0.0-0.4) H 10/16/23 03:28
AST 53 U/L (17-59) 10/19/23 04:09
ALT 47 U/L (0-50) 10/19/23 04:09
Alkaline Phosphatase 56 U/L (38-126) 10/19/23 04:09
Total Protein 4.2 g/dl (6.3-8.2) L 10/19/23 04:09
Albumin 2.2 g/dl (3.5-5.0) L 10/19/23 04:09
Physical Exam
-
Gen: intubated/sedated
Abd: incision cdi, stoma russell and dusky with brown liquid output
[2023-10-19] MEDS: FLUSH (NSS) 1 FLUSH IV ×2 (12:08→12:31)
[2023-10-19] MEDS: STERILE WATER FOR INJECTION 10 ML IV (12:09)
[2023-10-19] MEDS: ROCEPHIN 1000 MG IV (12:09)
[2023-10-19] MEDS: LR 1000 IV (12:14)
--- NOTE | 2023-10-19 12:15 | PTCARENOTE ---
Patient reassessed at 1200. Patient more alert and mouthing words to staff. Following commands. Afib on tele monitor. Rate controlled in the 80-90's. Vitals stable. Levophed remains off. No other changes in assessment. Caser Up and RT updated.
Plan to wean.
--- NOTE | 2023-10-19 12:26 | W.PN.INTV ---
Today's Communication / Plan
Recommendations
IV metoprolol
Retry spontaneous breathing trial later today
Continue antibiotics for 2 additional days discontinue on Monday
N.p.o. for now
Gentle IV fluids
Wean off vasopressors
Full anticoagulation when cleared by surgery
Analgesia
Assessment
-
Assessment: 73-year-old male former tobacco smoker with past medical history of A-fib on Eliquis, hypertension, DM type II, BPH, history of COPD and allergic rhinitis who presents with lower abdominal pain, nausea/vomiting. Symptoms started last
night and he reports constipation for few days. Last BM about 3 days ago. Initial vitals in the ER showed he was in rapid A-fib with VR of 139 bpm, afebrile to 98.4 �F, breathing at 27 breaths minute, hypotensive to 76/59, and SpO2 93% on room
air. EKG confirmed A-fib with RVR. Labs showed leukocytosis to 20.4, creatinine 1.5, lactate 7.4, and T. bili 1.7. Blood culture collected. CT abdomen/pelvis showed fecal impaction without evidence for bowel obstruction. CXR showed retrocardiac
opacification concerning for left lower lobe pneumonia. He was given aztreonam/Flagyl in the ER, fentanyl, morphine, total of 3 L NS 0.9% and Zofran. He was admitted to the ICU for close monitoring with critical care services consulted for
additional management/recommendations.
Chronic conditions COOK RELIEF: Paroxysmal A-fib on Eliquis, hypertension, DM type II, BPH, history of Lyme disease complicated by arthritis, history of COPD, former tobacco use, allergic rhinitis
Impression:
#Stercoral colitis with severe constipation s/p disimpaction in the ER
Status post expiratory laparotomy/subtotal colectomy-diagnosis bowel ischemia. 10/15/2023
#Abdominal pain due to above
#Septic shock due to above in the setting of left lower lobe CAP
#Lactic acidosis
#CAP involving left lower lobe/right lower lobe
#Acute respiratory failure with hypoxia-requiring intubation mechanical ventilation.
Intubated 10/15/2023
#JOSE
#A-fib with RVR
#Elevated INR
#Transaminitis with elevated T. bili + elevated ALP
#Abnormal urinalysis with +1 leukocyte esterase
#Hypertension
#Reported history of COPD
#Former tobacco use disorder with [id number] history, quit about 15 years ago
Plan:
Remains critically ill-vasopressor requirements improving.
Remains on mechanical ventilation.
-
Septic shock: Intra-abdominal source. Possible pneumonia as well-possibly aspiration.
Levophed discontinued substation engineer 10/19/2023.
Continue to hold hydrocortisone.Cortisol was greater than 123
Continue to titrate to maintain mean arterial blood pressure greater than 65 mmHg
Lactic acid improved.
Acute kidney injury: Resolved.
Acidosis resolved
-
Continue LR for maintenance IV fluids 80 cc an hour.
-
Status post exploratory laparotomy, subtotal colectomy.
Bowel ischemia transverse and ascending colon: Noted
Status post colon partial colectomy sigmoid and creation of end ileostomy. 10/18/2023
- Continue with broad-spectrum antibiotics to cover intra-abdominal source as well as pneumonia.
- Currently on ceftriaxone/Flagyl total day 5 of antibiotics. Continue for 2 additional days and discontinue.
discontinued micafungin 10/17/2019.
Pneumonia on x-ray: Continue antibiotics, cannot rule out aspiration
All cultures negative so far
Mechanical ventilation settings reviewed
No significant secretions
ABG 10/17/2023. Respiratory alkalosis.
Pulmonary mechanics improved compared to yesterday. Peak pressure 22
ABG 7.40 739/190 on 10/18/2023. Ventilator has been adjusted
Hopefully can try spontaneous breathing trial tomorrow if stable.
Minimize sedation
Try the spontaneous breathing trial 10/19/2023 in the substation engineer: Doing well but developed rapid atrial fibrillation.
Back on mechanical ventilation.
Will start beta-blockers, if there is improvement in heart rate then we will retry the spontaneous breathing trial later today.
Hopefully can extubate.
Continue to minimize sedation.
Atrial fibrillation
Deferred timing of to restart anticoagulation to surgery.
Start IV metoprolol every 6 hours.
-
Renal function normalized.
-
Hyperglycemia: Insulin sliding scale.
Insulin drip has been discontinued
goal BG 140-180
Given Hx of COPD: Not bronchospastic. Nebulizers as needed.
-
DVT ppx: SCDs for now -high risk for bleeding. Hold anticoagulation for today. Defer to surgery when to restart. last time in OR on 10/18/2023.
PPI for GI prophylaxis
-
DNR status noted
Critical care statement: A total of 32 minutes of critical care time was provided for this patient today. This includes management of unstable vital signs, evaluation of the patient at bedside, reviewing the patient's pertinent medical records
including radiographs, microbiology, laboratory evaluations, and discussion with primary team, consultants, pharmacy, nutrition, physical therapy, case management, charge nurse, critical care nursing, and respiratory therapy.
Data:
CT abdomen/pelvis with IV contrast 10/15/2023:
Findings concerning for fecal impaction.
Large amount of fecal material throughout the colon.
Bilateral too small to characterize hypodense renal lesions likely benign cysts.
Severe atherosclerotic vascular disease.
Solid noncalcified left lower lobe pulmonary nodule. Continued surveillance recommended.
CXR 10/15/2023: Findings suggesting mild left lower lobe pneumonia.
Subjective Dataa
Subjective Data
Date of Service:
Date of Service: October 19, 2023
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
Subjective:
Remains on mechanical ventilation
Difficult to obtain history
Hemodynamics improved, Levophed has been discontinued
Tolerated surgery well
Review of Systems
General: Unobtainable - Sedation
Objective Data
Data Reviewed
Vital Signs / I&O / Oxygen:
Vital Signs
Temp Pulse Resp BP Pulse Ox
98.6 F 82 15 113/63 98
10/19/23 11:21 10/19/23 12:08 10/19/23 11:30 10/19/23 12:08 10/19/23 12:00
Intake and Output
10/18/23 10/19/23 10/20/23
06:59 06:59 06:59
Intake Total 3258.8 / 3468.5 3227.1 / 3335.7 289.7 / 289.7
Output Total 1125 / 1225 1425 / 1575 430 / 430
Balance 2133.8 / 2243.5 1802.1 / 1760.7 -140.3 / -140.3
SaO2 [A/C] 98
SaO2 96
Nasal Cannula flow liters per 6
minute
Physical Exam
General: Respiratory Distress (n)
HEENT: Normocephalic
Cardiovascular: S1-S2 and Regular Rhythm
Respiratory: Rhonchi, Non-Labored Respirations and ET Tube (No significant secretion or hemoptysis)
GI: Soft, Other (Absent bowel sounds) and Other (Surgical incision, intact, dressed)
Neurology: Other (Sedated, mechanical ventilation. With sedation breaks follows commands.)
Skin: Warm
Labs/Micro/Reports
Lab Data
10/19/23 04:09
10/19/23 04:09
Laboratory Results
10/19/23
04:09
pH 7.40
pCO2 43
pO2 185 H
HCO3 26.6
O2 Delivery Level
Microbiology
10/15/23 05:43 Blood/Venous Blood Culture - Preliminary
No Growth in 4 days- Final report to follow
10/15/23 09:57 Urine Urine Culture - Final
NO GROWTH
[2023-10-19 12:40] LABS: Glucose - Point of Care 132 mg/dl (70-99)
--- NOTE | 2023-10-19 13:04 | PTCARENOTE ---
SBT initiated at 1256. Vitals stable. HR 80-90's, afib. at bedside.
--- NOTE | 2023-10-19 13:28 | PTCARENOTE ---
Patient coughing up a large amount of rivera secretions. Sputum culture obtained and sent to lab. Tolerating wean. Occasional periods of apnea. Respiratory therapist at bedside.
--- NOTE | 2023-10-19 14:11 | PTCARENOTE ---
Indwelling silva catheter removed at 1400. Condom catheter applied. DTV by 1999.
--- NOTE | 2023-10-19 14:20 | PTCARENOTE ---
Patient alarming for apnea. Unable to tolerate wean. Spoke with Bandoleer Packer. Patient to be placed back on A/C. RT notified.
--- NOTE | 2023-10-19 15:11 | CM ---
CM following re: discharge planning.
Discussed in Rounds, reviewed pt's chart, met with pt. Pt's spouse and son at bedside.
Per Rounds meeting, pt is POD#4 s/p emergent damage control ex-lap and subtotal colectomy for ischemia. Pt remains intubated short weaning trial today.
PT and OT will evaluate the pt when clinically appropriate to determine a level of care at discharge.
D/C plan: uncertain at this time and will depend on pt's progress.
CM will follow with discharge plan updates as hospitalization progresses
--- NOTE | 2023-10-19 15:28 | W.PN.HOSP.TC ---
Today's Communication/Plan
-
continue IV Abx
continue NGT
ongoing vent weans/SBT
Assessment / Plan
Assessment / Plan
Assessment:
Septic shock POA
- resolved; off all pressors
- s/p stress dose steroids
- continue IVF, follow lactate levels which improved and trended down
- ICU team following
Acute surgical abdomen with stercoral colitis with severe ischemic bowel
- s/p disimpaction in ER
- clinically unstable 10/14
- emergent OR 10/14: ex lap, subtotal colectomy for mesenteric ischemia, ischemic colon
- s/p OR 10/17: exploratory laparotomy, partial colectomy (sigmoid), creation end ileostomy
- continue empiric Cefepime/Flagyl through 10/20, follow cultures.
- continue IV PPI
- continue NGT
- GS following
Community acquired PNA, LLL
Vent dependent respiratory failure
- sedation/vent management per ICU; off sedation currently with ongoing SBTs
- continue empiric Cefepime/Flagyl
JOSE from septic shock
Acute metabolic acidosis
- monitor renal function
- continue IVF
A. Fib with RVR
- likely driven by septic shock
- monitor rates; IV Metoprolol in place
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
Hypernatremia
Transaminitis likely shock liver
Elevated INR
- follow labs
Hx of Essential HTN
- holding JORY/HCTZ
Type 2 DM
- holding Metformin
- completed critical care insulin protocol
- Diabetes MANUFACTURING ASSEMBLER following
Hx of COPD
Former tobacco use disorder with 95-aorj-taew history, quit about 15 years ago
Hypokalemia
- replete as necessary, follow BMP
DVT ppx: SCDs
Code: DNR confirmed with Son Shilo. No heroic measures.
Total Critical Care Time 41 minutes. I was immediately available to the patient and staff. I personally examined, reviewed labs, diagnostic images/reports, interpretations, treatment plans, discussed patient care with other providers and family
or caregivers (if patient is unable to make decisions), entered orders as appropriate and documented the medical record.
Anticipated Discharge: > 48 hours
Subjective/Interval History
-
Date of Service: October 19, 2023
s/p OR yesterday with ileostomy creation
off sedation, pressors
did not pass SBT today
Objective Data
-
Labs:
Laboratory Results
10/19/23 10/19/23
04:09 15:00
WBC 11.1 H
Hgb 11.0 L
Hct 33.5 L
Plt Count 139
HCO3 26.6 Pending
Sodium 139
Potassium 4.4
Chloride 105
Carbon Dioxide 28
BUN 28 H
Creatinine 0.6 L
Glucose 142 H
Calcium 7.6 L
Total Bilirubin 0.7
AST 53
ALT 47
Alkaline Phosphatase 56
Vital Signs:
Vital Signs
Temp Pulse Resp BP Pulse Ox
98.6 F 91 15 113/63 97
10/19/23 11:21 10/19/23 14:15 10/19/23 14:15 10/19/23 12:08 10/19/23 14:15
I&O
10/18/23 10/19/23 10/20/23
06:59 06:59 06:59
Intake Total 3258.8 / 3468.5 3227.1 / 3335.7 689.7 / 689.7
Output Total 1125 / 1225 1425 / 1575 615 / 615
Balance 2133.8 / 2243.5 1802.1 / 1760.7 74.7 / 74.7
Physical Exam
-
General: No Apparent Distress and Intubated
HEENT: Normocephalic and Atraumatic
Respiratory: Negative Wheezes or Rales
Cardiac: Regular Rhythm and S1/S2
GI: Ostomy
Neuro: Awake
Psych: Calm
Data Reviewed
-
Critical Care Time (in minutes): 41
Labs: Labs Reviewed by me
--- NOTE | 2023-10-19 16:11 | PTCARENOTE ---
SBT initiated. Patient alert. VSS.
--- NOTE | 2023-10-19 16:20 | PTCARENOTE ---
Patient writing with pen and paper. Appropriate and able to make needs known. Asking RN to place on glasses. Tolerating wean at current time. No other changes in assessment.
[2023-10-19 16:59] LABS: B.E. 3.4 mmol/L; HCO3 29.5 mmol/L (21-28); O2 Saturation % 98.2 % (94-98); PCO2 51 mmHg (35-48); PO2 169 mmHg (83-108); pH 7.37 (7.35-7.45)
--- NOTE | 2023-10-19 17:02 | W.PN.UPDATE ---
Update Note
Progress Note Update
Patient alert, cooperative.
Following commands
Strong cough effort, not in distress.
Mildly tachycardic 105 -110 but hemodynamically stable.
ABG noted. Normal pH. Slightly increased CO2. Otherwise with adequate oxygenation
at the bedside. Will extubate to oxygen. Maintain pulse ox above 90%.
Will use CPAP tonight while he is sleeping. He is agreeable.
[2023-10-19] MEDS: LOVENOX 40 MG SC (17:08)
--- NOTE | 2023-10-19 17:20 | PTCARENOTE ---
ABG sent around 1700. Results discussed with Dispatcher Bus And Trolley. Orders to extubate placed. Patient extubated at 1715. Pulse ox 95% on 6Lnc. Patient alert and utilizing yakuer for secretions. B/l wrist restraints removed.
[2023-10-19 17:35] LABS: Glucose - Point of Care 126 mg/dl (70-99)
--- NOTE | 2023-10-19 18:07 | PTCARENOTE ---
Patient holding NGT in hand. When asked what happened. Patient stating when he was moving arm it got caught and pulled out. Patient reminded not to pull or tug on any tubes.
[2023-10-19 23:50] LABS: Glucose - Point of Care 136 mg/dl (70-99)
[2023-10-20] VITALS (26 sets, daily range): BP systolic 121–164; BP diastolic 76–117; PULSE 2–119; O2SAT 93; BMI 31.0
[2023-10-20] MEDS: LOPRESSOR 2.5 MG IV ×4 (01:06→17:28)
[2023-10-20] MEDS: FLAGYL 500 MG 100 IV ×3 (01:06→16:05)
[2023-10-20] MEDS: LR 1000 IV (01:07)
[2023-10-20 05:13] LABS: Hematocrit 34.4 % (39.0-52.0); Hemoglobin 10.8 g/dL (13.0-18.0); Mean Corp Hgb Conc. 31.4 g/dL (33.0-37.0); Mean Corpuscular Hgb 30.6 pg (27.0-31.0); Mean Corpuscular Volume 97.5 fL (80.0-94.0); Mean Platelet Volume 10.3 fL (7.4-10.4); Platelet Count 133 10^3/uL (130-400); Red Blood Cell Count 3.53 10^6/uL (4.70-6.10); Red Cell Dist. Width 13.6 % (11.5-14.5); White Blood Cell Count 10.9 10^3/uL (4.8-10.8)
[2023-10-20 05:28] LABS: ALT (SGPT) 40 U/L (0-50); AST (SGOT) 44 U/L (17-59); Albumin 2.3 g/dl (3.5-5.0); Alkaline Phosphatase 74 U/L (38-126); Blood Urea Nitrogen 30 mg/dl (9-20); Calcium 8.2 mg/dl (8.4-10.2); Carbon Dioxide 34 mmol/L (22-30); Chloride 105 mmol/L (98-107); Estimated Creatinine Clearance 122 ml/min; Glucose 93 mg/dl (70-99); Sodium 143 mmol/L (135-145); Total Bilirubin 0.6 mg/dl (0.2-1.3); Total Protein 4.4 g/dl (6.3-8.2); eGFR > 60.00
[2023-10-20 06:02] LABS: Glucose - Point of Care 93 mg/dl (70-99)
[2023-10-20] MEDS: NOVOLOG FLEXPEN-LOW RESISTANCE SC ×2 (06:04→12:15)
[2023-10-20 06:33] LABS: % Basophils 0.5 % (0-2); % Eosinophils 0.2 % (0-6); % Immature Granulocytes 1.9 % (0-0.5); % Lymphocytes 8.2 % (20.5-51.1); % Monocytes 12.8 % (1.7-9.3); % Neutrophils 76.4 % (42.2-75.2); Absolute Basophils 0.1 10^3/uL (0-0.2); Absolute Immature Granulocytes 0.2 10^3/uL (0-0.05); Absolute Lymphocytes 0.9 10^3/uL (1.2-3.4); Absolute Monocytes 1.4 10^3/uL (0.1-0.6); Absolute Neutrophils 8.3 10^3/uL (1.4-6.5); Nucleated Red Blood Cells % 0 % (-)
--- NOTE | 2023-10-20 07:38 | PN.DE.MGMTRT ---
Insulin Management
- -
10/20/2023: Diabetes Management F/U:
Patient admitted 10/14 with lower abdominal abdominal pain, N&V. PMH: PAF, HTN, COPD, BPH, former tobacco smoker T2DM and allergic rhinitis. . CT A/P-->Stercoral colitis with severe constipation s/p disimpaction in the ER, s/p ex lap with subtotal
colectomy- due to severe ischemic bowel on 10/15/2023. Noted for Septic shock requiring multiple pressors, LLL Community acquired PNA and Vent dependent respiratory failure.
Prior to admission, pt was taking Metformin 500mg BID. Current A1C 6.2%.
Pt awake, A/O x3, pleasant, resting in bed, offers no complaints, able to discuss diabetes mgt.
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
Informed pt that MFM will remain on hold for now and will be resumed by his PCP after discharge from the hospital
Patient remains NPO on NovoLog low corrective insulin Q 6 hours.
Glucose stale and in range of 126 to 132, fasting this AM 93.
Will follow for further needed adjustments.
Diabetes History
- -
Type of Diabetes: 2
Pre-Admission Diabetes Regimen
10/20/23
04:27
Creatinine 0.7
Lab Results
Hemoglobin A1c 6.2 % (4.0-5.6) H 10/16/23 03:28
Insulin Pump Settings
IP Diabetes Regimen
10/19/23 10/19/23 10/19/23
17:23 23:38
Glucose
POC Glucose 132 H 126 H 136 H
10/20/23 10/20/23
04:27 05:50
Glucose 93
POC Glucose 93
Meal type: Breakfast
Patient Education
[2023-10-20] MEDS: PROTONIX IV 40 MG IV ×2 (08:40→22:38)
[2023-10-20] MEDS: NSS (PRESERVATIVE FREE) 10 ML IV ×2 (08:40→22:38)
--- NOTE | 2023-10-20 09:36 | W.PN.HOSP.TC ---
Today's Communication/Plan
-
ok for PO meds as needed per GS
clears
continue IV Lopressor
continue IV Abx
Celaya placed for retention
PT/OT
monitor in ICU x 24 hours further
Assessment / Plan
Assessment / Plan
Assessment:
Septic shock POA
- resolved; off all pressors
- s/p stress dose steroids
- continue IVF, follow lactate levels which improved and trended down
- ICU team following
Acute surgical abdomen with stercoral colitis with severe ischemic bowel
- s/p disimpaction in ER
- clinically unstable 10/14
- emergent OR 10/14: ex lap, subtotal colectomy for mesenteric ischemia, ischemic colon
- s/p OR 10/17: exploratory laparotomy, partial colectomy (sigmoid), creation end ileostomy
- continue empiric Cefepime/Flagyl through 10/20, follow cultures.
- continue IV PPI
- diet: clears
- GS following
Community acquired PNA, LLL
Vent dependent respiratory failure
- extubated 10/18
- continue empiric Cefepime/Flagyl
JOSE from septic shock
Acute metabolic acidosis
- monitor renal function
- continue IVF
A. Fib with RVR
- likely driven by septic shock
- monitor rates; IV Metoprolol in place; transition to PO in 24 hours
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
Hypernatremia
Transaminitis likely shock liver
Elevated INR
- follow labs
Hx of Essential HTN
- holding JORY/HCTZ
Type 2 DM
- holding Metformin
- completed critical care insulin protocol
- continue SSI
- Diabetes ELECTRONIC DATA PROCESSING AUDITOR following
Hx of COPD
Former tobacco use disorder with [id number]-vojq history, quit about 15 years ago
Hypokalemia
- replete as necessary, follow BMP
DVT ppx: SCDs
Code: DNR confirmed with Son Shilo. No heroic measures.
Total Critical Care Time 42 minutes. I was immediately available to the patient and staff. I personally examined, reviewed labs, diagnostic images/reports, interpretations, treatment plans, discussed patient care with other providers and family
or caregivers (if patient is unable to make decisions), entered orders as appropriate and documented the medical record.
Anticipated Discharge: > 48 hours
Subjective/Interval History
-
Date of Service: October 20, 2023
eating jello
no complaints presently
Objective Data
-
Labs:
Laboratory Results
10/20/23
04:27
WBC 10.9 H
Hgb 10.8 L
Hct 34.4 L
Plt Count 133
Sodium 143
Potassium 4.0
Chloride 105
Carbon Dioxide 34 H
BUN 30 H
Creatinine 0.7
Glucose 93
Calcium 8.2 L
Total Bilirubin 0.6
AST 44
ALT 40
Alkaline Phosphatase 74
Vital Signs:
Vital Signs
Temp Pulse Resp BP Pulse Ox
98.5 F 102 9 136/82 96
10/20/23 08:02 10/20/23 05:58 10/20/23 02:00 10/20/23 05:58 10/20/23 02:00
I&O
10/19/23 10/20/23 10/21/23
06:59 06:59 06:59
Intake Total 3227.1 / 3335.7 2169.7 / 2169.7
Output Total 1425 / 1575 965 / 965
Balance 1802.1 / 1760.7 1204.7 / 1204.7
Physical Exam
-
General: No Apparent Distress
HEENT: Normocephalic and Atraumatic
Respiratory: Negative Wheezes
Cardiac: Irregular Rhythm and Tachycardic
GI: Soft, Nontender and Ostomy
Genito-urinary: No Costovertebral Tender
Neuro: AO x 3
Hematologic / Lymphatic: No Lymphadenopathy
Psych: Calm
Data Reviewed
-
Critical Care Time (in minutes): 42
Labs: Labs Reviewed by me
--- NOTE | 2023-10-20 09:44 | W.PN.GS2 ---
Addendum entered and electronically signed by Jeffrey Richardson MD 10/20/23 10:55:
I saw and examined the patient.
The Frozen Meat Cutter's note was reviewed and I agree with the note.
Comment: Improving. Extubated last night. Pain controlled. Hungry. C/o urinary retention with condom cath in place. Abd soft, approp ttp, aquacel OK, stoma appears dark and dusky but is producing liquid stool. PLan: Cont IV abx, trial clears.
Bladder scan and place silva if retention confirmed. Monitor stoma tissue.
Original Note:
Today's Communication / Plan
-
Trial of clears
Assessment / Plan
-
73 yo male with h/o of AFIB on Eliquis presenting with abdominal pain with fecal impaction on initial CT, disimpacted in ED but without relief in pain. Taken to the OR emergently on 10/15 as he clinically deteriorated with increasing abdominal pain.
POD #5 s/p ex lap with subtotal colectomy in a damage control operation
POD #2 s/p segmental sigmoid resection, end ileostomy and abd wound closure
Afebrile, intermittent tachycardia (afib), pressors remain off
Extubated 10/18 and now on NC for O2
WBC improved, H/H stable
+stool/flatus in ostomy although stoma remains briceno
h/o BPh, has been off Flomax d/t NPO status and now with urinary retention after perioperative silva removal
--Advance to [facility]D, ok for PO meds
--Place new silva, will plan voiding trial once more recovered from surgery. Resume Flomax.
--Cont IV abx
--Wound/stoma nurse eval for ostomy care
--VTE ppx with SCD's and sq heparin, please continue to hold full strength AC at this time
--Medical and critical care management as per outside sales professional and hospitalist teams
Subjective Data
-
Date of Service: October 20, 2023
Patient seen and examined at bedside with Dr. Richardson. Patient answering questions appropriately, recalls events leading up to initial surgery. Denies n/v. He notes he is thirsty. Unable to void despite urge.
Objective Data
-
Intake and Output
10/19/23 10/20/23 10/21/23
06:59 06:59 06:59
Intake Total 3227.1 / 3335.7 2169.7 / 2169.7
Output Total 1425 / 1575 965 / 965
Balance 1802.1 / 1760.7 1204.7 / 1204.7
Intake:
IV fluids (Total) 3027.1 / 3135.7 1969.7 / 1969.7
Levo 487.6 / 502.6 22.5 / 22.5
Lr 1,000 ml @ 150 mls/hr IV . 240 / 240
[id number] PAULINA Rx#:[id number]
Lr 1,000 ml @ 80 mls/hr IV . 1760 / 1840 1920 / 1920
[id number] PAULINA Rx#:[id number]
Propofol 209.5 / 215.6 12.2 / 12.2
fentanyl 330 / 337.5 15.0 / 15.0
IV piggybacks 200 / 200 200 / 200
Output:
Liquid stool amount 550 / 550
Ileostomy 550 / 550
Urine, Silva 1425 / 1575 415 / 415
Vital Signs
Temp Pulse Resp BP Pulse Ox
98.5 F 102 9 136/82 96
10/20/23 08:02 10/20/23 05:58 10/20/23 02:00 10/20/23 05:58 10/20/23 02:00
Lab Results
10/20/23 04:27
10/20/23 04:27
Calcium 8.2 mg/dl (8.4-10.2) L 10/20/23 04:27
Phosphorus 6.1 mg/dl (2.5-4.5) H 10/16/23 03:28
Magnesium 1.9 mg/dl (1.6-2.3) 10/19/23 04:09
Total Bilirubin 0.6 mg/dl (0.2-1.3) 10/20/23 04:27
Direct Bilirubin 0.6 mg/dl (0.0-0.4) H 10/16/23 03:28
AST 44 U/L (17-59) 10/20/23 04:27
ALT 40 U/L (0-50) 10/20/23 04:27
Alkaline Phosphatase 74 U/L (38-126) 10/20/23 04:27
Total Protein 4.4 g/dl (6.3-8.2) L 10/20/23 04:27
Albumin 2.3 g/dl (3.5-5.0) L 10/20/23 04:27
Physical Exam
-
Gen: NAD
Abd: incision cdi, dressing with minimal shadowing, stoma russell and dusky with brown stool outputs
[2023-10-20] MEDS: ROCEPHIN 1000 MG IV (11:42)
[2023-10-20] MEDS: STERILE WATER FOR INJECTION 10 ML IV (11:42)
[2023-10-20] MEDS: LASIX 20 MG IV (11:51)
[2023-10-20] MEDS: FLUSH (NSS) 1 FLUSH IV ×2 (11:58→12:16)
--- NOTE | 2023-10-20 12:05 | PTOTSP ---
Speech Language Pathology
Pt seen for clinical bedside swallow evaluation. Mildly hoarse vocal quality noted. RN reported cough with water. P.O. trials of thin water via cup/straw and jello provided. Pt limited to clear liquids per surgery at this time. Adequate oral
phase with limited consistency. No overt signs of aspiration during evaluation, although pt taking more than single sip at times. Discussed increased aspiration risk at this time with pt and importance of single sips. After SODIUM CHLORITE OPERATOR left room,
coughing episode noted, which RN stated was with water. Again reiterated importance of slow rate to pt.
Recommend:
(1) Thin liquids (limited to clear liquids by surgery)
(2) Aspiration precautions: sit upright, slow rate, single sips only
(3) Meds with single sip of liquid
(4) SODIUM CHLORITE OPERATOR to continue to follow
--- NOTE | 2023-10-20 12:19 | PTCARENOTE ---
vitals cannot be confirmed prior to my arrival of 11am.
[2023-10-20 12:23] LABS: Glucose - Point of Care 101 mg/dl (70-99)
--- NOTE | 2023-10-20 13:08 | W.PN.INTV ---
Today's Communication / Plan
Recommendations
20 mg of Lasix today
Wean down FiO2
Continue antibiotics
physical therapy
Occupational Therapy
Discontinue IV fluid
Ostomy care
Eventual anticoagulation
Maintain ICU level of care for today
Assessment
-
Assessment: 73-year-old male former tobacco smoker with past medical history of A-fib on Eliquis, hypertension, DM type II, BPH, history of COPD and allergic rhinitis who presents with lower abdominal pain, nausea/vomiting. Symptoms started last
night and he reports constipation for few days. Last BM about 3 days ago. Initial vitals in the ER showed he was in rapid A-fib with VR of 139 bpm, afebrile to 98.4 �F, breathing at 27 breaths minute, hypotensive to 76/59, and SpO2 93% on room
air. EKG confirmed A-fib with RVR. Labs showed leukocytosis to 20.4, creatinine 1.5, lactate 7.4, and T. bili 1.7. Blood culture collected. CT abdomen/pelvis showed fecal impaction without evidence for bowel obstruction. CXR showed retrocardiac
opacification concerning for left lower lobe pneumonia. He was given aztreonam/Flagyl in the ER, fentanyl, morphine, total of 3 L NS 0.9% and Zofran. He was admitted to the ICU for close monitoring with critical care services consulted for
additional management/recommendations.
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
Impression:
#Stercoral colitis with severe constipation s/p disimpaction in the ER
Status post expiratory laparotomy/subtotal colectomy-diagnosis bowel ischemia. 10/15/2023
#Abdominal pain due to above
#Septic shock due to above in the setting of left lower lobe CAP
#Lactic acidosis
#CAP involving left lower lobe/right lower lobe
#Acute respiratory failure with hypoxia-requiring intubation mechanical ventilation.
Intubated 10/15/2023
#JOSE
#A-fib with RVR
#Elevated INR
#Transaminitis with elevated T. bili + elevated ALP
#Abnormal urinalysis with +1 leukocyte esterase
#Hypertension
#Reported history of COPD
#Former tobacco use disorder with [id number]-lsba history, quit about 15 years ago
Plan:
-
Clinically improved
Extubated 10/20/2023
Septic shock resolved.
-
Status post exploratory laparotomy, subtotal colectomy.
Bowel ischemia transverse and ascending colon: Noted
Status post colon partial colectomy sigmoid and creation of end ileostomy. 10/18/2023
- Continue with broad-spectrum antibiotics to cover intra-abdominal source as well as pneumonia.
- Currently on ceftriaxone/Flagyl total -from the pulmonary perspective for 2 additional days. Antibiotics will be extended for intra-abdominal indication per surgery.
discontinued micafungin 10/17/2019.
Pneumonia on x-ray: Continue antibiotics, cannot rule out aspiration
All cultures negative so far
Currently on supplemental oxygen-wean as able
Will give 20 mg of IV Lasix
Incentive spirometry encouraged
Increase activity as able, physical therapy/Occupational Therapy ordered.
-
Atrial fibrillation
Deferred timing of to restart anticoagulation to surgery.
Continue IV metoprolol for today, transition to orals tomorrow
-
Hyperglycemia: Insulin sliding scale.
Insulin drip has been discontinued
goal BG 140-180
Given Hx of COPD: Not bronchospastic. Nebulizers as needed.
-
DVT ppx: SCDs for now -high risk for bleeding. Hold anticoagulation for today.
Diet per surgery. Hopefully can advance to clears per
PPI for GI prophylaxis
-
DNR status noted
-
Maintain ICU level of care for today. If continues to improve plan transition to telemetry tomorrow.
Data:
CT abdomen/pelvis with IV contrast 10/15/2023:
Findings concerning for fecal impaction.
Large amount of fecal material throughout the colon.
Bilateral too small to characterize hypodense renal lesions likely benign cysts.
Severe atherosclerotic vascular disease.
Solid noncalcified left lower lobe pulmonary nodule. Continued surveillance recommended.
CXR 10/15/2023: Findings suggesting mild left lower lobe pneumonia.
Subjective Dataa
Subjective Data
Date of Service:
Date of Service: October 20, 2023
Chief Complaint: [employer] Manager Follow Up (Septic shock/), Pneumonia Follow Up and Vent Management Follow Up
Subjective:
This morning patient slightly confused but cooperative. Calm.
Following commands.
Denies abdominal pain.
Denies shortness of breath at rest
Review of Systems
General: Fever (n)
Cardiopulmonary: Dyspnea (none a rest) and Cough
GI: Abdominal Pain (n) and Nausea (n)
Neuro: Headache (n)
Objective Data
Data Reviewed
Vital Signs / I&O / Oxygen:
Vital Signs
Temp Pulse Resp BP Pulse Ox
98.8 F 99 18 125/95 96
10/20/23 11:15 10/20/23 12:15 10/20/23 12:15 10/20/23 12:00 10/20/23 12:15
Intake and Output
10/19/23 10/20/23 10/21/23
06:59 06:59 06:59
Intake Total 3227.1 / 3335.7 2169.7 / 2169.7 440 / 440
Output Total 1425 / 1575 965 / 965 1000 / 1000
Balance 1802.1 / 1760.7 1204.7 / 1204.7 -560 / -560
SaO2 [CPAP] 95
SaO2 [A/C] 98
SaO2 96
Nasal Cannula flow liters per 5
minute
Physical Exam
General: Respiratory Distress (n)
HEENT: Normocephalic
Cardiovascular: S1-S2 and Regular Rhythm
Respiratory: Rhonchi and Non-Labored Respirations
GI: Soft and Other (Ostomy in place, borders are slightly dusky)
Neurology: Awake, Alert and No Motor Deficits
Skin: Warm
Labs/Micro/Reports
Lab Data
10/20/23 04:27
10/20/23 04:27
Laboratory Results
10/19/23
16:53
pH 7.37
pCO2 51 H
pO2 169 H
HCO3 29.5 H
O2 Delivery Level
Microbiology
10/19/23 13:41 Endotracheal Respiratory Culture - Preliminary
Usual Respiratory Mayra
10/19/23 13:41 Endotracheal Gram Stain - Preliminary
10/15/23 05:43 Blood/Venous Blood Culture - Final
No Growth - Final Report
--- NOTE | 2023-10-20 13:19 | PTCARENOTE ---
Assumed care of pt at aprox 1100. Pt Afib on monitor and vitals stable. 95 on 5L. Pt with frequent coughing and using suction himself. Pt AAO x2 forgetful at times. Pt with no pain at the time to surgical site. Belia recently re- inserted this am
with large amounts of tea colored urine.
PT/OT/Speech in to see patient. Clear diet ordered.
[2023-10-20 17:03] LABS: Glucose - Point of Care 114 mg/dl (70-99)
--- NOTE | 2023-10-20 17:17 | CM ---
met with patient at bedside.sp subtotal colectomy/end ileostomy,cont iv abx,trial clears,place silva for urinary retention,seen by pt-rec acute rehab.referral sent to [facility].plan:[facility] when stable for dc.
--- NOTE | 2023-10-20 17:22 | PTCARENOTE ---
Able to wean patient down to 3L. Currently 95 on 2L. Pt with many visitors today. Belia put out over 2L. Ostomy with 125 ml of liquid stool. Pt with no pain today. Pt frequently using suction and encouraged to take it slow with liquids due to
coughing with intake. Repositioned Q2 hours.
[2023-10-20] MEDS: LOVENOX 40 MG SC (17:29)
[2023-10-20] MEDS: FLOMAX 0.4 MG PO (17:29)
--- NOTE | 2023-10-20 17:58 | PTCARENOTE ---
Able to wean patient down to 3L. Currently 95 on 3L. Pt with many visitors today. Celaya put out over 2L. Ostomy with 125 ml of liquid stool. Pt with no pain today. Pt frequently using suction and encouraged to take it slow with liquids due to
coughing with intake. Repositioned Q2 hours.
--- NOTE | 2023-10-20 18:36 | PTCARENOTE ---
Pt did vomit after he was turned. He did recently have some water and again was encourgaed to drink small only amounts at a time.
--- NOTE | 2023-10-20 21:30 | PTCARENOTE ---
Resumed care of pt this evening. Pt does not c/o pain. Surgical dressing intact w/ some small old drainage noted. VSS.
[2023-10-20 22:03] LABS: Glucose - Point of Care 88 mg/dl (70-99)
[2023-10-21] VITALS (18 sets, daily range): BP systolic 117–170; BP diastolic 81–111; PULSE 2–95; BMI 31.3; BMI 30.6
--- NOTE | 2023-10-21 00:30 | PTCARENOTE ---
Pt placed on CPAP for HS, tolerating and satting at 97% pulse ox. Pt rings appropriately and can make needs known.
[2023-10-21] MEDS: FLAGYL 500 MG 100 IV ×3 (01:04→16:52)
[2023-10-21] MEDS: LOPRESSOR 2.5 MG IV ×3 (01:05→11:46)
[2023-10-21 04:29] LABS: % Basophils 0.4 % (0-2); % Eosinophils 0.6 % (0-6); % Immature Granulocytes 2.4 % (0-0.5); % Lymphocytes 7.2 % (20.5-51.1); % Monocytes 9.5 % (1.7-9.3); % Neutrophils 79.9 % (42.2-75.2); Absolute Basophils 0.1 10^3/uL (0-0.2); Absolute Eosinophils 0.1 10^3/uL (0-0.7); Absolute Immature Granulocytes 0.4 10^3/uL (0-0.05); Absolute Lymphocytes 1.2 10^3/uL (1.2-3.4); Absolute Monocytes 1.6 10^3/uL (0.1-0.6); Absolute Neutrophils 13.3 10^3/uL (1.4-6.5); Hematocrit 34.1 % (39.0-52.0); Mean Corp Hgb Conc. 32.3 g/dL (33.0-37.0); Mean Corpuscular Hgb 31.1 pg (27.0-31.0); Mean Corpuscular Volume 96.3 fL (80.0-94.0); Mean Platelet Volume 9.8 fL (7.4-10.4); Nucleated Red Blood Cells % 0 % (-); Platelet Count 149 10^3/uL (130-400); Red Blood Cell Count 3.54 10^6/uL (4.70-6.10); Red Cell Dist. Width 13.3 % (11.5-14.5); White Blood Cell Count 16.6 10^3/uL (4.8-10.8)
--- NOTE | 2023-10-21 04:30 | PTCARENOTE ---
Pt resting comfortably at this time.
[2023-10-21 04:52] LABS: ALT (SGPT) 33 U/L (0-50); AST (SGOT) 37 U/L (17-59); Albumin 2.2 g/dl (3.5-5.0); Alkaline Phosphatase 70 U/L (38-126); Blood Urea Nitrogen 25 mg/dl (9-20); Carbon Dioxide 37 mmol/L (22-30); Chloride 101 mmol/L (98-107); Estimated Creatinine Clearance > 125 ml/min; Glucose 88 mg/dl (70-99); Potassium 3.5 mmol/L (3.5-5.1); Sodium 143 mmol/L (135-145); Total Bilirubin 0.5 mg/dl (0.2-1.3); Total Protein 4.3 g/dl (6.3-8.2); eGFR > 60.00
[2023-10-21] MEDS: KCL 40 MEQ PO (06:10)
[2023-10-21 07:31] LABS: Glucose - Point of Care 86 mg/dl (70-99)
[2023-10-21] MEDS: PROTONIX IV 40 MG IV ×2 (07:55→20:13)
[2023-10-21] MEDS: NSS (PRESERVATIVE FREE) 10 ML IV ×2 (07:56→20:13)
--- NOTE | 2023-10-21 08:46 | PTCARENOTE ---
assumed care of pt. HTN noted. Pt does not c/o pain. Surgical dressing intact w/ some small-mod drainage noted on aquacel dressing. Thick liquid stool, pink budded stoma present.
--- NOTE | 2023-10-21 08:54 | W.PN.INTV ---
Today's Communication / Plan
Recommendations
Continue postoperative care
Celaya in place for retention, Flomax
Continue antibiotics per surgery
Clear liquids
Continue metoprolol-consider transition to enteral route
Follow electrolytes and renal function
No further diuresis, poor p.o. intake
Will start half-normal saline with 20 mill equivalents of potassium at 70 cc an hour for maintenance
Wean off oxygen
Transferred to telemetry
Signed off
Assessment
-
Assessment: 73-year-old male former tobacco smoker with past medical history of A-fib on Eliquis, hypertension, DM type II, BPH, history of COPD and allergic rhinitis who presents with lower abdominal pain, nausea/vomiting. Symptoms started last
night and he reports constipation for few days. Last BM about 3 days ago. Initial vitals in the ER showed he was in rapid A-fib with VR of 139 bpm, afebrile to 98.4 �F, breathing at 27 breaths minute, hypotensive to 76/59, and SpO2 93% on room
air. EKG confirmed A-fib with RVR. Labs showed leukocytosis to 20.4, creatinine 1.5, lactate 7.4, and T. bili 1.7. Blood culture collected. CT abdomen/pelvis showed fecal impaction without evidence for bowel obstruction. CXR showed retrocardiac
opacification concerning for left lower lobe pneumonia. He was given aztreonam/Flagyl in the ER, fentanyl, morphine, total of 3 L NS 0.9% and Zofran. He was admitted to the ICU for close monitoring with critical care services consulted for
additional management/recommendations.
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
Impression:
#Stercoral colitis with severe constipation s/p disimpaction in the ER
Status post expiratory laparotomy/subtotal colectomy-diagnosis bowel ischemia. 10/15/2023
#Abdominal pain due to above
#Septic shock due to above in the setting of left lower lobe CAP
#Lactic acidosis
#CAP involving left lower lobe/right lower lobe
#Acute respiratory failure with hypoxia-requiring intubation mechanical ventilation.
Intubated 10/15/2023
#JOSE
#A-fib with RVR
#Elevated INR
#Transaminitis with elevated T. bili + elevated ALP
#Abnormal urinalysis with +1 leukocyte esterase
#Hypertension
#Reported history of COPD
#Former tobacco use disorder with 07-yscy-tvyj history, quit about 15 years ago
Plan:
-
Clinically improved
Extubated 10/20/2023
On low rate supplemental oxygen.
-
Status post exploratory laparotomy, subtotal colectomy.
Bowel ischemia transverse and ascending colon: Noted
Status post colon partial colectomy sigmoid and creation of end ileostomy. 10/18/2023
- Continue with broad-spectrum antibiotics to cover intra-abdominal source as well as pneumonia.
- Currently on ceftriaxone/Flagyl total -from the pulmonary perspective for 2 additional days. Antibiotics will be extended for intra-abdominal indication per surgery.
discontinued micafungin 10/17/2019.
Pneumonia on x-ray: Continue antibiotics, cannot rule out aspiration-this is improved.
All cultures negative so far
Currently on supplemental oxygen-wean as able
Received 20 mg of IV Lasix 10/20/2023-good response. No further diuresis.
Incentive spirometry encouraged
Currently on 2 L pulse ox 97% wean off as able
Due to deconditioning and muscle weakness, may use CPAP while here in the hospital at night. Does not use at home
Increase activity as able, physical therapy/Occupational Therapy ordered.
-
Atrial fibrillation
Deferred timing of to restart anticoagulation to surgery.
IV metoprolol, heart rate is better controlled.
Consider transition to enteral route.
-
Hyperglycemia: Insulin sliding scale.
Insulin drip has been discontinued
goal BG 140-180
Given Hx of COPD: Not bronchospastic. Nebulizers as needed.
-
Celaya was placed on 10/20/2023 due to urinary retention. Flomax
-
DVT ppx: SCDs for now -high risk for bleeding. Hold anticoagulation for today. Defer to surgery when to restart
Diet per surgery. Clear liquids at the moment. If not able to keep up with fluid ingestion may need low rate supplemental IV fluids for hydration.
PPI for GI prophylaxis
-
Significantly deconditioned continue physical therapy Occupational Therapy
-
DNR status noted
-
Transfer to telemetry today. No additional recommendation from the critical care perspective.
Sign off

Data:
CT abdomen/pelvis with IV contrast 10/15/2023:
Findings concerning for fecal impaction.
Large amount of fecal material throughout the colon.
Bilateral too small to characterize hypodense renal lesions likely benign cysts.
Severe atherosclerotic vascular disease.
Solid noncalcified left lower lobe pulmonary nodule. Continued surveillance recommended.
CXR 10/15/2023: Findings suggesting mild left lower lobe pneumonia.
Subjective Dataa
Subjective Data
Date of Service:
Date of Service: October 21, 2023
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
Subjective:
No new complaints
Pain is controlled
Denies shortness of breath at rest
Denies any cough or phlegm production.
Denies vomiting.
Review of Systems
General: Fever (n)
Cardiopulmonary: Dyspnea (none at rest)
GI: Abdominal Pain (n), Nausea (n) and Vomiting (n)
Objective Data
Data Reviewed
Vital Signs / I&O / Oxygen:
Vital Signs
Temp Pulse Resp BP Pulse Ox
98.5 F 91 18 159/98 95
10/21/23 07:42 10/21/23 08:30 10/21/23 08:30 10/21/23 08:00 10/21/23 08:30
Intake and Output
10/20/23 10/21/23 10/22/23
06:59 06:59 06:59
Intake Total 2169.7 / 2169.7 1260 / 1260 100 / 100
Output Total 965 / 965 3079 / 3079 70 / 70
Balance 1204.7 / 1204.7 -1819 / -1819
SaO2 [CPAP] 95
SaO2 [A/C] 98
SaO2 95
Nasal Cannula flow liters per 3
minute
Physical Exam
General: Respiratory Distress (n)
HEENT: Normocephalic
Cardiovascular: S1-S2 and Regular Rhythm
Respiratory: Clear and Non-Labored Respirations
GI: Soft and Other (Ostomy in place, borders are slightly dusky)
Neurology: Awake, Alert and No Motor Deficits
Skin: Warm
Labs/Micro/Reports
Lab Data
10/21/23 04:20
10/21/23 04:20
Microbiology
10/19/23 13:41 Endotracheal Respiratory Culture - Preliminary
Usual Respiratory Mayra
10/19/23 13:41 Endotracheal Gram Stain - Preliminary
10/15/23 05:43 Blood/Venous Blood Culture - Final
No Growth - Final Report
[2023-10-21] MEDS: D5/0.45%NSS with KCL 20 MEQ 1000 IV (09:29)
[2023-10-21 11:26] LABS: Glucose - Point of Care 92 mg/dl (70-99)
[2023-10-21] MEDS: ZOFRAN 4 MG IV (11:46)
[2023-10-21] MEDS: ROCEPHIN 1000 MG IV (11:47)
[2023-10-21] MEDS: STERILE WATER FOR INJECTION 10 ML IV (11:50)
--- NOTE | 2023-10-21 11:50 | PTCARENOTE ---
Pt. arrived via bed from ICU. Pt. with c/o nausea at this time and b/p elevated. Medications given as ordered. Pt. at bedside. Call zamora within reach.
[2023-10-21] MEDS: FLUSH (NSS) IV (12:37)
[2023-10-21 12:54] LABS: Phosphorus 2.6 mg/dl (2.5-4.5); Triglycerides 86 mg/dl (10-149)
--- NOTE | 2023-10-21 14:12 | W.PN.HOSP.TC ---
Today's Communication/Plan
-
TPN, dc IVF
continue IV Abx
PO beta-shahrzad
Assessment / Plan
Assessment / Plan
Assessment:
Septic shock POA
- resolved; off all pressors
- s/p stress dose steroids
- wean off IVF if TPN starts
- transfer of out ICU
Acute surgical abdomen with stercoral colitis with severe ischemic bowel
- s/p disimpaction in ER
- clinically unstable 10/14
- emergent OR 10/14: ex lap, subtotal colectomy for mesenteric ischemia, ischemic colon
- s/p OR 10/17: exploratory laparotomy, partial colectomy (sigmoid), creation end ileostomy
- continue empiric Ceftriaxone/Flagyl per general surgery, follow cultures.
- continue IV PPI
- diet: clears for comfort
- TPN starting per GS
Community acquired PNA, LLL
Vent dependent respiratory failure
- extubated 10/18
- currently on 2L; wean O2 as able
- continue empiric Ceftriaxone/Flagyl
JOSE from septic shock
Acute metabolic acidosis
- monitor renal function
- monitor labs as TPN begins
A. Fib with RVR
- likely driven by septic shock
- monitor rates; transition to PO Metoprolol 25mg q6h
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
Hypernatremia
Transaminitis likely shock liver
Elevated INR
- follow labs
Hx of Essential HTN
- holding JORY/HCTZ
Type 2 DM
- holding Metformin
- completed critical care insulin protocol
- continue SSI
- Diabetes PAINT STRIPPER following
Hx of COPD
Former tobacco use disorder with [id number] history, quit about 15 years ago
Hypokalemia
- replete as necessary, follow BMP
Urinary retention
- continue Flomax
- Celaya catheter; Void trial next week
DVT ppx: SCDs
Code: DNR confirmed with Son Shilo. No heroic measures.
Anticipated Discharge: > 48 hours
Subjective/Interval History
-
Date of Service: October 21, 2023
pain controlled, no new complaints
poor oral intake remains, starting TPN per GS.
Objective Data
-
Labs:
Laboratory Results
10/21/23
04:20
WBC 16.6 H
Hgb 11.0 L
Hct 34.1 L
Plt Count 149
Sodium 143
Potassium 3.5
Chloride 101
Carbon Dioxide 37 H
BUN 25 H
Creatinine 0.6 L
Glucose 88
Calcium 8.0 L
Total Bilirubin 0.5
AST 37
ALT 33
Alkaline Phosphatase 70
Vital Signs:
Vital Signs
Temp Pulse Resp BP Pulse Ox
98.7 F 89 18 145/92 93
10/21/23 11:00 10/21/23 13:14 10/21/23 11:00 10/21/23 13:14 10/21/23 11:00
I&O
10/20/23 10/21/23 10/22/23
06:59 06:59 06:59
Intake Total 2169.7 / 2169.7 1260 / 1260 100 / 100
Output Total 965 / 965 3079 / 3079 315 / 315
Balance 1204.7 / 1204.7 -1819 / -1819 -215 / -215
Physical Exam
-
General: No Apparent Distress
HEENT: Normocephalic and Atraumatic
Respiratory: Negative Wheezes or Rales
Cardiac: Regular Rhythm and S1/S2
GI: Ostomy
Musculoskeletal: No Edema
Neuro: AO x 3
Hematologic / Lymphatic: No Lymphadenopathy
Psych: Calm
Data Reviewed
-
Total Time Spent with Patient (in minutes): 42
Labs: Labs Reviewed by me
--- NOTE | 2023-10-21 14:57 | W.PN.GS2 ---
Addendum entered and electronically signed by Jeffrey Richardson MD 10/21/23 15:33:
I saw and examined the patient.
The Fittings Finisher's note was reviewed and I agree with the note.
Comment: Improving. Pain well controlled. Not taking much PO. Exam approp, stoma remains stained dark but pink with digitization, producing now semisolid dark black stool. Start TPN. CLD for comfort. OK for transfer to floor. Can restart A/C if
indicated, if hep gtt is planned would avoid bolus dose.
Original Note:
Today's Communication / Plan
-
Start TPN via PICC
Assessment / Plan
-
73 yo male with h/o of AFIB on Eliquis presenting with abdominal pain with fecal impaction on initial CT, disimpacted in ED but without relief in pain. Taken to the OR emergently on 10/15 as he clinically deteriorated with increasing abdominal pain.
POD #6 s/p ex lap with subtotal colectomy in a damage control operation
POD #3 s/p segmental sigmoid resection, end ileostomy and abd wound closure
AFVSS
Extubated 10/18 and now on NC for O2
WBC improved initially but now back up, H/H stable
+stool/flatus in ostomy. Stoma becoming more pink
Silva replaced for urinary retention on 10/19.
--Ok for CLD for comfort, ok for PO meds
--Start TPN, nutrition following with us
--Follow labs
--C/W silva/flomax
--Cont IV abx
--Wound/stoma nurse eval for ostomy care
--VTE ppx with SCD's and sq heparin
--OK for full dose AC from surgical standpoint (if heparin planned, would not give bolus)
--Medical and critical care management as per hospitalist teams
Subjective Data
-
Date of Service: October 21, 2023
Patient seen and examined at bedside with Dr. Richardson. No specific complaints but reports he overall does not feel well. Denies nausea this am but did have an episode of emesis yesterday evening. Pain well managed overall.
Objective Data
-
Intake and Output
10/20/23 10/21/23 10/22/23
06:59 06:59 06:59
Intake Total 2169.7 / 2169.7 1260 / 1260 100 / 100
Output Total 965 / 965 3079 / 3079 315 / 315
Balance 1204.7 / 1204.7 -1819 / -1819 -215 / -215
Intake:
Oral fluids 1160 / 1160
IV fluids (Total) 1969.7 / 1968.7
Levo 22.5 / 22.5
Lr 1,000 ml @ 80 mls/hr IV . 1919 / 1919
[id number] PAULINA Rx#:[id number]
Propofol 12.2 / 12.2
fentanyl 15.0 / 15.0
IV piggybacks 200 / 200 100 / 100 100 / 100
Output:
Emesis 50 / 50
Liquid stool amount 550 / 550 225 / 225 100 / 100
Ileostomy 550 / 550 225 / 225 100 / 100
Urine, Silva 415 / 415 2804 / 2804 215 / 215
Vital Signs
Temp Pulse Resp BP Pulse Ox
98.7 F 89 18 145/92 93
10/21/23 11:00 10/21/23 13:14 10/21/23 11:00 10/21/23 13:14 10/21/23 11:00
Lab Results
10/21/23 04:20
10/21/23 04:20
Calcium 8.0 mg/dl (8.4-10.2) L 10/21/23 04:20
Phosphorus Cancelled 10/21/23 11:34
Magnesium 1.9 mg/dl (1.6-2.3) 10/19/23 04:09
Total Bilirubin 0.5 mg/dl (0.2-1.3) 10/21/23 04:20
Direct Bilirubin 0.6 mg/dl (0.0-0.4) H 10/16/23 03:28
AST 37 U/L (17-59) 10/21/23 04:20
ALT 33 U/L (0-50) 10/21/23 04:20
Alkaline Phosphatase 70 U/L (38-126) 10/21/23 04:20
Total Protein 4.3 g/dl (6.3-8.2) L 10/21/23 04:20
Albumin 2.2 g/dl (3.5-5.0) L 10/21/23 04:20
Physical Exam
-
Gen: NAD
Abd: incision cdi, dressing with minimal shadowing, stoma dusky/pink with brown stool outputs
[2023-10-21 16:52] LABS: Glucose - Point of Care 91 mg/dl (70-99)
[2023-10-21] MEDS: FLOMAX 0.4 MG PO (16:55)
[2023-10-21] MEDS: LOPRESSOR 25 MG PO (16:55)
[2023-10-21] MEDS: LOVENOX 40 MG SC (16:56)
[2023-10-21] MEDS: Parenteral Nutrition, Central 1780 IV (21:40)
[2023-10-22] MEDS: FLAGYL 500 MG 100 IV ×4 (00:11→23:41)
[2023-10-22] MEDS: LOPRESSOR 25 MG PO ×5 (00:13→23:35)
[2023-10-22 00:19] LABS: Glucose - Point of Care 181 mg/dl (70-99)
[2023-10-22] MEDS: NOVOLOG FLEXPEN-LOW RESISTANCE 1 UNITS SC ×3 (00:19→23:38)
[2023-10-22 03:07] VITALS: BP 149/89
[2023-10-22 05:37] LABS: Glucose - Point of Care 199 mg/dl (70-99)
[2023-10-22 06:00] VITALS: BMI 30.5
[2023-10-22 06:22] LABS: % Basophils 0.3 % (0-2); % Eosinophils 0.9 % (0-6); % Immature Granulocytes 2.4 % (0-0.5); % Lymphocytes 7.2 % (20.5-51.1); % Monocytes 6.9 % (1.7-9.3); % Neutrophils 82.3 % (42.2-75.2); Absolute Basophils 0.1 10^3/uL (0-0.2); Absolute Eosinophils 0.2 10^3/uL (0-0.7); Absolute Immature Granulocytes 0.4 10^3/uL (0-0.05); Absolute Lymphocytes 1.3 10^3/uL (1.2-3.4); Absolute Monocytes 1.3 10^3/uL (0.1-0.6); Absolute Neutrophils 15.1 10^3/uL (1.4-6.5); Hematocrit 32.7 % (39.0-52.0); Hemoglobin 10.7 g/dL (13.0-18.0); Mean Corp Hgb Conc. 32.7 g/dL (33.0-37.0); Mean Corpuscular Hgb 30.9 pg (27.0-31.0); Mean Corpuscular Volume 94.5 fL (80.0-94.0); Mean Platelet Volume 9.4 fL (7.4-10.4); Nucleated Red Blood Cells % 0 % (-); Platelet Count 190 10^3/uL (130-400); Red Blood Cell Count 3.46 10^6/uL (4.70-6.10); Red Cell Dist. Width 13.4 % (11.5-14.5); White Blood Cell Count 18.4 10^3/uL (4.8-10.8)
[2023-10-22 06:39] LABS: ALT (SGPT) 25 U/L (0-50); AST (SGOT) 31 U/L (17-59); Albumin 2.1 g/dl (3.5-5.0); Alkaline Phosphatase 62 U/L (38-126); Blood Urea Nitrogen 23 mg/dl (9-20); Calcium 7.9 mg/dl (8.4-10.2); Carbon Dioxide 36 mmol/L (22-30); Chloride 99 mmol/L (98-107); Estimated Creatinine Clearance > 125 ml/min; Glucose 199 mg/dl (70-99); Magnesium 1.7 mg/dl (1.6-2.3); Phosphorus 2.5 mg/dl (2.5-4.5); Potassium 3.6 mmol/L (3.5-5.1); Sodium 138 mmol/L (135-145); Total Bilirubin 0.4 mg/dl (0.2-1.3); Total Protein 4.2 g/dl (6.3-8.2); Triglycerides 103 mg/dl (10-149); eGFR > 60.00
[2023-10-22 08:11] VITALS: BP 136/90
[2023-10-22 09:25] LABS: APTT 23.7 Sec (23.4-35.0)
[2023-10-22] MEDS: NSS (PRESERVATIVE FREE) 10 ML IV ×2 (09:30→20:30)
[2023-10-22] MEDS: PROTONIX IV 40 MG IV ×2 (09:30→20:30)
--- NOTE | 2023-10-22 09:40 | W.PN.HOSP.TC ---
Today's Communication/Plan
-
IV heparin
clears for comfort, TPN
continue IV Abx
ongoing PT/OT evals, PMR consult
Assessment / Plan
Assessment / Plan
Assessment:
Septic shock POA
- resolved; off all pressors
- s/p stress dose steroids
- weaned off IVF as now on TPN
- transfer of out ICU
Acute surgical abdomen with stercoral colitis with severe ischemic bowel
- s/p disimpaction in ER
- clinically unstable 10/14
- emergent OR 10/14: ex lap, subtotal colectomy for mesenteric ischemia, ischemic colon
- s/p OR 10/17: exploratory laparotomy, partial colectomy (sigmoid), creation end ileostomy
- continue empiric Ceftriaxone/Flagyl per general surgery through 10/23, follow cultures.
- continue IV PPI
- diet: clears for comfort
- TPN per GS
Community acquired PNA, LLL
Vent dependent respiratory failure
- extubated 10/18
- currently on 2L; wean O2 as able
- continue empiric Ceftriaxone/Flagyl per general surgery through 10/23
JOSE from septic shock
Acute metabolic acidosis
- monitor renal function
- monitor labs while on TPN
A. Fib with RVR
- likely driven by septic shock
- monitor rates; transition to PO Metoprolol 25mg q6h
- resume full anticoagulation; IV Heparin (requires intensive monitoring). If stable in 24 hours, can transition to oral agent.
Hypernatremia
Transaminitis likely shock liver
Elevated INR
- follow labs
Hx of Essential HTN
- holding JORY/HCTZ
Type 2 DM
- holding Metformin
- completed critical care insulin protocol
- continue SSI
- Diabetes PORCELAIN ENAMELER following
Hx of COPD
Former tobacco use disorder with 78-rtuh-ifdb history, quit about 15 years ago
Hypokalemia
- replete as necessary, follow BMP
Urinary retention
- continue Flomax
- Celaya catheter; Void trial next week
DVT ppx: SCDs
Code: DNR confirmed with Son Shilo. No heroic measures.
Anticipated Discharge: > 48 hours
Subjective/Interval History
-
Date of Service: October 22, 2023
denies any new complaints presently
reports poor appetite
Objective Data
-
Labs:
Laboratory Results
10/22/23 10/22/23
06:01 08:25
WBC 18.4 H
Hgb 10.7 L
Hct 32.7 L
Plt Count 190 D
APTT Pending
Sodium 138
Potassium 3.6
Chloride 99
Carbon Dioxide 36 H
BUN 23 H
Creatinine 0.5 L
Glucose 199 H
Calcium 7.9 L
Total Bilirubin 0.4
AST 31
ALT 25
Alkaline Phosphatase 62
Vital Signs:
Vital Signs
Temp Pulse Resp BP Pulse Ox
97.8 F 77 20 136/90 97
10/22/23 08:11 10/22/23 08:11 10/22/23 08:11 10/22/23 08:11 10/22/23 08:11
I&O
10/21/23 10/22/23 10/23/23
06:59 06:59 06:59
Intake Total 1260 / 1260 1300 / 1300
Output Total 3079 / 3079 1365 / 1365
Balance -1819 / -1819 -65 / -65
Physical Exam
-
General: No Apparent Distress
HEENT: Normocephalic
Cardiac: Regular Rhythm and S1/S2
GI: Soft
Genito-urinary: No Costovertebral Tender
Neuro: AO x 3
Psych: Calm
Data Reviewed
-
Total Time Spent with Patient (in minutes): 51
Labs: Labs Reviewed by me
[2023-10-22] MEDS: HEPARIN 25000 UNITS/250 ML IV (10:00)
--- NOTE | 2023-10-22 11:46 | W.PN.GS2 ---
Addendum entered and electronically signed by Jeffrey Richardson MD 10/22/23 14:12:
I saw and examined the patient.
The Chief Dietitian's note was reviewed and I agree with the note.
Comment: Improving from GI standpoint. Poor appetite. Denies abd pain. Stoma remains stained, pink with digitization, is producing stool. Audible ronchi from the hallway. Rising leukocytosis likely of pulmonary origin, doubt intra-abdominal. Will
cont monitoring stoma. Cont TPN and clears for comfort. If no pulmonary source identified would proceed with CT A/P
Original Note:
Today's Communication / Plan
-
TPN/Clears
Assessment / Plan
-
73 yo male with h/o of AFIB on Eliquis presenting with abdominal pain with fecal impaction on initial CT, disimpacted in ED but without relief in pain. Taken to the OR emergently on 10/15 as he clinically deteriorated with increasing abdominal pain.
POD #7 s/p ex lap with subtotal colectomy in a damage control operation
POD #4 s/p segmental sigmoid resection, end ileostomy and abd wound closure
AFVSS
Extubated 10/18 and now on NC for O2, loose cough
WBC improved initially but now trending back up, H/H stable
+stool/flatus in ostomy. Stoma becoming more pink.
Silva replaced for urinary retention on 10/19.
--Ok for CLD for comfort, ok for PO meds
--Continue TPN, nutrition following with us.
--Follow labs
--C/W silva/flomax
--CXR planned, pulm to follow
--Cont IV abx, ?restart micafungin
--Wound/stoma nurse eval for ostomy care
--VTE ppx with SCD's and heparin gtt (no bolus)
--Medical and critical care management as per hospitalist team, discussed with Dr. Holder
Subjective Data
-
Date of Service: October 22, 2023
Patient seen and examined at bedside with Dr. Richardson. No appetite. Denies active nausea, but keeping emesis bag nearby as he is worried he may be. Denies significant pain. Overall not feeling great yet.
Objective Data
-
Intake and Output
10/21/23 10/22/23 10/23/23
06:59 06:59 06:59
Intake Total 1260 / 1260 1300 / 1300
Output Total 3079 / 3079 1365 / 1365
Balance -1819 / -1819 -65 / -65
Intake:
Oral fluids 1160 / 1160 960 / 960
IV fluids (Total) 140 / 140
IV piggybacks 100 / 100 200 / 200
Output:
Emesis 50 / 50
Liquid stool amount 225 / 225 150 / 150
Ileostomy 225 / 225 150 / 150
Urine, Islva 2804 / 2804 1215 / 1215
Vital Signs
Temp Pulse Resp BP Pulse Ox
97.8 F 77 20 136/90 97
10/22/23 08:11 10/22/23 08:11 10/22/23 08:11 10/22/23 08:11 10/22/23 09:15
Lab Results
10/22/23 06:01
10/22/23 06:01
Calcium 7.9 mg/dl (8.4-10.2) L 10/22/23 06:01
Phosphorus 2.5 mg/dl (2.5-4.5) 10/22/23 06:01
Magnesium 1.7 mg/dl (1.6-2.3) 10/22/23 06:01
Total Bilirubin 0.4 mg/dl (0.2-1.3) 10/22/23 06:01
Direct Bilirubin 0.6 mg/dl (0.0-0.4) H 10/16/23 03:28
AST 31 U/L (17-59) 10/22/23 06:
ALT 25 U/L (0-50) 10/22/23 06:
Alkaline Phosphatase 62 U/L (38-126) 10/22/23 06:
Total Protein 4.2 g/dl (6.3-8.2) L 10/22/23 06:
Albumin 2.1 g/dl (3.5-5.0) L 10/22/23 06:
Physical Exam
-
NAD
Loose cough
Abd: ABD soft, mild distention, NT
Midline incision cdi, dressing with minimal shadowing, stoma dusky/pink with brown stool outputs and flatus
[2023-10-22 11:55] VITALS: BP 171/80
[2023-10-22] MEDS: STERILE WATER FOR INJECTION 10 ML IV (12:01)
[2023-10-22] MEDS: ROCEPHIN 1000 MG IV (12:01)
[2023-10-22 12:19] LABS: Glucose - Point of Care 219 mg/dl (70-99)
[2023-10-22] MEDS: NOVOLOG FLEXPEN-LOW RESISTANCE 2 UNITS SC ×2 (12:30→18:15)
--- NOTE | 2023-10-22 14:43 | W.PN.PUL3 ---
Today's Communication / Plan
-
Continue current antibiotics
Start DuoNebs 3 times a day
Incentive spirometry encouraged
Will add Acapella device
Increase activity as able
Leni in sputum: Likely colonizer-no need for antifungals from the pulmonary perspective pulm
Will follow
Assessment
-
Assessment: 73-year-old male former tobacco smoker with past medical history of A-fib on Eliquis, hypertension, DM type II, BPH, history of COPD and allergic rhinitis who presents with lower abdominal pain, nausea/vomiting. Symptoms started last
night and he reports constipation for few days. Last BM about 3 days ago. Initial vitals in the ER showed he was in rapid A-fib with VR of 139 bpm, afebrile to 98.4 �F, breathing at 27 breaths minute, hypotensive to 76/59, and SpO2 93% on room
air. EKG confirmed A-fib with RVR. Labs showed leukocytosis to 20.4, creatinine 1.5, lactate 7.4, and T. bili 1.7. Blood culture collected. CT abdomen/pelvis showed fecal impaction without evidence for bowel obstruction. CXR showed retrocardiac
opacification concerning for left lower lobe pneumonia. He was given aztreonam/Flagyl in the ER, fentanyl, morphine, total of 3 L NS 0.9% and Zofran. He was admitted to the ICU for close monitoring with critical care services consulted for
additional management/recommendations.
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
-
Pulmonary call back on 10/22/2023 for yeast on the sputum culture from endotracheal aspiration.
Impression:
Yeast on sputum culture
Chest x-ray 10/22/2023: Left lower lobe infiltrate worsening.
Persistent leukocytosis
-
#Stercoral colitis with severe constipation s/p disimpaction in the ER
Status post expiratory laparotomy/subtotal colectomy-diagnosis bowel ischemia. 10/15/2023
#Abdominal pain due to above
#Septic shock due to above in the setting of left lower lobe CAP
#Lactic acidosis
#CAP involving left lower lobe/right lower lobe
#Acute respiratory failure with hypoxia-requiring intubation mechanical ventilation.
Intubated 10/15/2023
#JOSE
#A-fib with RVR
#Elevated INR
#Transaminitis with elevated T. bili + elevated ALP
#Abnormal urinalysis with +1 leukocyte esterase
#Hypertension
#Reported history of COPD
#Former tobacco use disorder with 20-uzzy-etqh history, quit about 15 years ago
Plan:
-
From the respiratory perspective overall he has improved since the ICU. His oxygen supplementation has decreased to 2 L nasal cannula.
Extubated 10/20/2023
There is no fevers
Intermittently coughing some phlegm but not excessive. No hemoptysis.
Does not appear toxic
Leukocytosis persistent but likely multifactorial
-
New/worsening left lower infiltrate could be atelectasis-doubt new pneumonia or worsening pneumonia. 10/22/2019
Less likely Leni as a pathogen at this point. I recommend against starting antifungals at this point. Will need close observation.
Has been on ceftriaxone and metronidazole for days. Continue for now. If there is suspicion of worsening infection then we will broaden the spectrum of antibiotic to Zosyn.
Recommend secretion clearance interventions.
Encourage incentive spirometry
Will add Acapella device
DuoNebs 3 times a day
Will repeat chest x-ray in the next 48 hours.
-
History of COPD: Not bronchospastic. Continue nebulizer
-
Status post exploratory laparotomy, subtotal colectomy.
Bowel ischemia transverse and ascending colon: Noted
Status post colon partial colectomy sigmoid and creation of end ileostomy. 10/18/2023
- Continue with broad-spectrum antibiotics to cover intra-abdominal source as well as pneumonia.
- Currently on ceftriaxone/Flagyl total -from the pulmonary perspective for 2 additional days. Antibiotics will be extended for intra-abdominal indication per surgery.
discontinued micafungin 10/17/2019.
-
Atrial fibrillation
Rate control
Now on heparin drip.
-
DVT ppx:heparin drip
Diet per surgery. - TPN
PPI for GI prophylaxis
-
Significantly deconditioned continue physical therapy Occupational Therapy
-
DNR status noted
-
Pulmonary will continue to follow for left lower lobe infiltrate mild hypoxemia and Leni in the sputum

Data:
CT abdomen/pelvis with IV contrast 10/15/2023:
Findings concerning for fecal impaction.
Large amount of fecal material throughout the colon.
Bilateral too small to characterize hypodense renal lesions likely benign cysts.
Severe atherosclerotic vascular disease.
Solid noncalcified left lower lobe pulmonary nodule. Continued surveillance recommended.
CXR 10/15/2023: Findings suggesting mild left lower lobe pneumonia.
Subjective Data
-
Date of Service:
Date of Service: October 22, 2023
Objective Data
Data Reviewed
Vital Signs / I&O / Oxygen:
Vital Signs
Temp Pulse Resp BP Pulse Ox
97.8 F 75 20 171/80 97
10/22/23 11:55 10/22/23 11:55 10/22/23 11:55 10/22/23 11:55 10/22/23 11:55
Intake and Output
10/21/23 10/22/23 10/23/23
06:59 06:59 06:59
Intake Total 1260 / 1260 1300 / 1300
Output Total 3079 / 3079 1365 / 1365
Balance -1819 / -1819 -65 / -65
SaO2 [CPAP] 95
SaO2 [A/C] 98
SaO2 97
Nasal Cannula flow liters per 2
minute
Physical Exam
General: Comfortable
HEENT: Normocephalic
Cardiovascular: S1-S2
Respiratory: Wheeze (n) and Crackles (Left base)
GI: Soft, Non Distended and Other (Colostomy)
Neurology: Awake and Alert
Labs/Micro/Reports
Lab Data
10/22/23 06:01
10/22/23 06:01
Laboratory Results
10/22/23
08:25
APTT 23.7
Microbiology
10/19/23 13:41 Endotracheal Respiratory Culture - Final
Yeast
10/19/23 13:41 Endotracheal Gram Stain - Final
10/15/23 05:43 Blood/Venous Blood Culture - Final
No Growth - Final Report
--- NOTE | 2023-10-22 15:50 | CHAP ---
Mr. Younger was sleeping comfortably, with his brother and [id number] visiting. They shared about his situation and his background. Emotional and spiritual support provided.
[2023-10-22 16:15] VITALS: BP 166/101
[2023-10-22] MEDS: FLOMAX 0.4 MG PO (16:49)
[2023-10-22 18:15] LABS: Glucose - Point of Care 225 mg/dl (70-99)
[2023-10-22] MEDS: DUONEB 3 ML INH (19:46)
[2023-10-22 19:53] VITALS: BP 176/105
[2023-10-22] MEDS: APRESOLINE 5 MG IV (20:46)
[2023-10-22] MEDS: Parenteral Nutrition, Central 1500 IV (20:57)
[2023-10-22 23:38] LABS: Glucose - Point of Care 192 mg/dl (70-99)
[2023-10-22 23:55] VITALS: BP 163/99
[2023-10-23] MEDS: APRESOLINE 10 MG IV (02:48)
[2023-10-23 03:03] VITALS: BP 173/106
[2023-10-23] MEDS: TYLENOL 650 MG PO (03:08)
--- NOTE | 2023-10-23 03:10 | PTCARENOTE ---
Pts BP high 1952 176/105 HR 70s- house TIN STACKER notified given 5 mg IV hydralazine at 2045- rechecked 163/99 HR 84- House TIN STACKER aware.
--- NOTE | 2023-10-23 03:12 | PTCARENOTE ---
Addendum entered by Latonya Rubi 10/23/23 05:29:
BP 140/87.
Original Note:
0248- pt notified RN that he feels as though he has been hallucinating at times throughout the day- 'feels as though i am standing at the edge of my bed and you are walking sideways'. Pt with no current hallucinations at this time. Temp 98.6 pt
diaphoretic, warm to touch, with mild pain at times- pt given PO tylenol 650 mg at 0308. BP remains high 173/109 HR 85- pt given 10 mg IV hydralazine. [place] LICENSED CLINICAL SOCIAL WORKER aware.
[2023-10-23] MEDS: LOPRESSOR 25 MG PO ×4 (05:08→23:48)
[2023-10-23] MEDS: NOVOLOG FLEXPEN-LOW RESISTANCE 2 UNITS SC ×2 (05:09→12:50)
[2023-10-23 05:10] LABS: Glucose - Point of Care 230 mg/dl (70-99)
--- NOTE | 2023-10-23 05:29 | PTCARENOTE ---
Pts ostomy with dark bile like output. House PHYSICIAN INDUSTRIAL aware.
[2023-10-23 06:00] VITALS: BMI 30.1
[2023-10-23 06:00] LABS: % Basophils 0.3 % (0-2); % Eosinophils 0.9 % (0-6); % Lymphocytes 5.2 % (20.5-51.1); % Monocytes 5.7 % (1.7-9.3); % Neutrophils 84.9 % (42.2-75.2); Absolute Basophils 0.1 10^3/uL (0-0.2); Absolute Eosinophils 0.2 10^3/uL (0-0.7); Absolute Immature Granulocytes 0.7 10^3/uL (0-0.05); Absolute Lymphocytes 1.2 10^3/uL (1.2-3.4); Absolute Monocytes 1.3 10^3/uL (0.1-0.6); Absolute Neutrophils 19.5 10^3/uL (1.4-6.5); Hematocrit 36.1 % (39.0-52.0); Hemoglobin 12.1 g/dL (13.0-18.0); Mean Corp Hgb Conc. 33.5 g/dL (33.0-37.0); Mean Corpuscular Hgb 31.2 pg (27.0-31.0); Mean Platelet Volume 9.4 fL (7.4-10.4); Nucleated Red Blood Cells % 0 % (-); Platelet Count 241 10^3/uL (130-400); Red Blood Cell Count 3.88 10^6/uL (4.70-6.10); Red Cell Dist. Width 13.3 % (11.5-14.5)
[2023-10-23 06:04] LABS: APTT 46.8 Sec (23.4-35.0)
[2023-10-23 06:09] LABS: ALT (SGPT) 22 U/L (0-50); AST (SGOT) 30 U/L (17-59); Albumin 2.3 g/dl (3.5-5.0); Alkaline Phosphatase 73 U/L (38-126); Blood Urea Nitrogen 16 mg/dl (9-20); Carbon Dioxide 36 mmol/L (22-30); Chloride 98 mmol/L (98-107); Estimated Creatinine Clearance > 125 ml/min; Glucose 233 mg/dl (70-99); Magnesium 1.6 mg/dl (1.6-2.3); Potassium 3.4 mmol/L (3.5-5.1); Sodium 137 mmol/L (135-145); Total Bilirubin 0.4 mg/dl (0.2-1.3); Total Protein 4.6 g/dl (6.3-8.2); Triglycerides 92 mg/dl (10-149); eGFR > 60.00
[2023-10-23] MEDS: HEPARIN 25000 UNITS/250 ML IV ×2 (06:17→21:35)
--- NOTE | 2023-10-23 06:51 | W.PN.HOSP.TC ---
Today's Communication/Plan
-
diet TPN as per surgery
cont abx
afib rate control
hep gtt
glycemic control
PT/OT
Assessment / Plan
Assessment / Plan
Physical Exam
General: No Apparent Distress
HEENT: Normocephalic
Cardiac: Irregularly Irregular S1/S2
GI: Soft nontender ostomy present with biliary output
Genito-urinary: No Costovertebral Tender
Neuro: AO x 3
Psych: Calm
73M afib HTN DM here for septic shock ischemic bowel s/p bowel resection ostomy creation and downgrade from ICU.
Septic shock POA
- resolved; off all pressors
- s/p stress dose steroids
- weaned off IVF as now on TPN
- transfer of out ICU
Acute surgical abdomen with stercoral colitis with severe ischemic bowel
- s/p disimpaction in ER
- clinically unstable 10/14
- emergent OR 10/14: ex lap, subtotal colectomy for mesenteric ischemia, ischemic colon
- s/p OR 10/17: exploratory laparotomy, partial colectomy (sigmoid), creation end ileostomy
- continue empiric Ceftriaxone/Flagyl per general surgery through 10/23, follow cultures.
- continue IV PPI
- diet: clears for comfort
- TPN per GS
Community acquired PNA, LLL
Vent dependent respiratory failure
- extubated 10/18
- currently on 2L; wean O2 as able
- continue empiric Ceftriaxone/Flagyl per general surgery through 10/23
JOSE from septic shock
Acute metabolic acidosis
- monitor renal function
- monitor labs while on TPN
A. Fib with RVR
- likely driven by septic shock
- monitor rates; transitioned to PO Metoprolol 25mg q6h
- cont IV Heparin gtt
Hypernatremia
Mild transaminitis
resolved
Hx of Essential HTN
- holding JORY/HCTZ
Type 2 DM
- holding Metformin
- completed critical care insulin protocol
- continue SSI
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
Hx of COPD
Former tobacco use disorder with 29-rdev-qaty history, quit about 15 years ago
Hypokalemia
Hypophosphatemia
- monitor and replete as necessary
Urinary retention
- continue Flomax
- Celaya catheter eventual trial of void
DVT ppx: SCDs
Code: DNR
Discussed with patient and patient's son also named Shilo
I spent a total of 50 minutes with the patient or on the floor. More than 50% of this time involved counseling and coordination of care.
Anticipated Discharge: > 48 hours
Subjective/Interval History
-
Date of Service: October 23, 2023
Seen and examined at bedside in no acute distress resting comfortably in bed. Denies pain. Reports poor appetite. Denies flatus. Bile products noted in ostomy bag.
Objective Data
-
Labs:
Laboratory Results
10/22/23 10/23/23 10/23/23
22:46 05:26 12:15
WBC 23.0 H
Hgb 12.1 L
Hct 36.1 L
Plt Count 241 D
APTT 46.0 H 46.8 H Pending
Sodium 137
Potassium 3.4 L
Chloride 98
Carbon Dioxide 36 H
BUN 16
Creatinine 0.5 L
Glucose 233 H
Calcium 8.0 L
Total Bilirubin 0.4
AST 30
ALT 22
Alkaline Phosphatase 73
Vital Signs:
Vital Signs
Temp Pulse Resp BP Pulse Ox
98.6 F 90 20 140/87 93
10/23/23 03:03 10/23/23 05:08 10/23/23 03:03 10/23/23 05:08 10/23/23 03:03
I&O
10/21/23 10/22/23 10/23/23
06:59 06:59 06:59
Intake Total 1260 / 1260 1300 / 1300 1182 / 1182
Output Total 3079 / 3079 1365 / 1365
Balance -1819 / -1819 -65 / -65 1182 / 1182
[2023-10-23 07:05] VITALS: BP 140/96
[2023-10-23] MEDS: DUONEB 3 ML INH ×3 (07:08→19:27)
[2023-10-23] MEDS: FLUSH (NSS) 1 FLUSH IV ×4 (09:28→15:57)
[2023-10-23] MEDS: FLAGYL 500 MG 100 IV ×3 (09:28→23:48)
[2023-10-23] MEDS: PROTONIX IV 40 MG IV ×2 (09:29→21:20)
[2023-10-23] MEDS: NSS (PRESERVATIVE FREE) 10 ML IV ×2 (09:29→21:20)
[2023-10-23] MEDS: POTASSIUM PHOSPHATE 259.0909 MEQ IV (10:33)
[2023-10-23 11:00] VITALS: BP 139/90
--- NOTE | 2023-10-23 11:28 | W.PN.GS2 ---
Today's Communication / Plan
-
Continue anticoagulation
TPN reordered
P.o. diet as able.
PT OT.
Assessment / Plan
-
73 yo male with h/o of AFIB on Eliquis presenting with abdominal pain with fecal impaction on initial CT, disimpacted in ED but without relief in pain. Taken to the OR emergently on 10/15 as he clinically deteriorated with increasing abdominal pain.
POD #8 s/p ex lap with subtotal colectomy in a damage control operation
POD #5 s/p segmental sigmoid resection, end ileostomy and abd wound closure
AFVSS
Extubated 10/18 and now on NC for O2, loose cough
WBC improved initially but now trending back up, H/H stable. Will plan for CT again tomorrow to assess for any undrained collections.
+stool/flatus in ostomy. Stoma becoming more pink.
Silva replaced for urinary retention on 10/19.
--Ok for CLD for comfort, ok for PO meds
--Continue TPN, nutrition following with us.
--Follow labs
--C/W silva/flomax
--CXR planned, pulm to follow
--Cont IV abx, ?restart micafungin
--Wound/stoma nurse eval for ostomy care
--VTE ppx with SCD's and heparin gtt (no bolus), trend hemoglobin.
General Surgery will continue to follow
Time Spent
Total Time Spent with Patient (in minutes): 20
Subjective Data
-
Date of Service: October 23, 2023
Interval Events:
No acute events overnight. Slept well. Pain Controlled. Denies Nausea/Vomiting, +bowel function. Tolerating diet.
Objective Data
-
Intake and Output
10/22/23 10/23/23 10/24/23
06:59 06:59 06:59
Intake Total 1300 / 1300 1182 / 1182
Output Total 1365 / 1365 2800 / 2800
Balance -65 / -65 -1618 / -1618
Intake:
Oral fluids 960 / 960 0 / 0
IV fluids (Total) 140 / 140
IV piggybacks 200 / 200 294 / 294
TPN/PPN 888 / 888
Output:
Liquid stool amount 150 / 150 200 / 200
Ileostomy 150 / 150 200 / 200
Urine, Silva 1215 / 1215 2600 / 2600
Vital Signs
Temp Pulse Resp BP Pulse Ox
99 F 64 16 140/96 94
10/23/23 07:05 10/23/23 07:12 10/23/23 07:12 10/23/23 07:05 10/23/23 09:22
Lab Results
10/23/23 05:26
10/23/23 05:26
Calcium 8.0 mg/dl (8.4-10.2) L 10/23/23 05:26
Phosphorus 2.0 mg/dl (2.5-4.5) L 10/23/23 05:26
Magnesium 1.6 mg/dl (1.6-2.3) 10/23/23 05:26
Total Bilirubin 0.4 mg/dl (0.2-1.3) 10/23/23 05:26
Direct Bilirubin 0.6 mg/dl (0.0-0.4) H 10/16/23 03:28
AST 30 U/L (17-59) 10/23/23 05:26
ALT 22 U/L (0-50) 10/23/23 05:26
Alkaline Phosphatase 73 U/L (38-126) 10/23/23 05:26
Total Protein 4.6 g/dl (6.3-8.2) L 10/23/23 05:26
Albumin 2.3 g/dl (3.5-5.0) L 10/23/23 05:26
Physical Exam
-
GENERAL/NEURO: Awake, Alert, no distress
CHEST: Unlabored breathing on RA
ABDOMEN: Soft, Non-Tender, Non-Distended, midline dressing intact. Stoma is dark and productive with dark bloody output and air in the bag
[2023-10-23 12:20] LABS: APTT 68.2 Sec (23.4-35.0)
[2023-10-23 12:23] LABS: Glucose - Point of Care 239 mg/dl (70-99)
[2023-10-23] MEDS: ROCEPHIN 1000 MG IV (12:52)
[2023-10-23] MEDS: STERILE WATER FOR INJECTION 10 ML IV (12:52)
--- NOTE | 2023-10-23 13:22 | W.PN.PUL3 ---
Today's Communication / Plan
-
Continue current antibiotics
Repeat chest x-ray tomorrow
Continue nebulizers
Secretion clearance intervention
Increase mobility as able
Follow leukocytosis and fever curve.
Low threshold to broaden spectrum antibiotics if patient develop fevers. May need to repeat cultures.
Assessment
-
Assessment: 73-year-old male former tobacco smoker with past medical history of A-fib on Eliquis, hypertension, DM type II, BPH, history of COPD and allergic rhinitis who presents with lower abdominal pain, nausea/vomiting. Symptoms started last
night and he reports constipation for few days. Last BM about 3 days ago. Initial vitals in the ER showed he was in rapid A-fib with VR of 139 bpm, afebrile to 98.4 �F, breathing at 27 breaths minute, hypotensive to 76/59, and SpO2 93% on room
air. EKG confirmed A-fib with RVR. Labs showed leukocytosis to 20.4, creatinine 1.5, lactate 7.4, and T. bili 1.7. Blood culture collected. CT abdomen/pelvis showed fecal impaction without evidence for bowel obstruction. CXR showed retrocardiac
opacification concerning for left lower lobe pneumonia. He was given aztreonam/Flagyl in the ER, fentanyl, morphine, total of 3 L NS 0.9% and Zofran. He was admitted to the ICU for close monitoring with critical care services consulted for
additional management/recommendations.
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
-
Pulmonary call back on 10/22/2023 for yeast on the sputum culture from endotracheal aspiration.
Impression:
Yeast on sputum culture
Chest x-ray 10/22/2023: Left lower lobe infiltrate worsening.
Persistent leukocytosis
-
#Stercoral colitis with severe constipation s/p disimpaction in the ER
Status post expiratory laparotomy/subtotal colectomy-diagnosis bowel ischemia. 10/15/2023
#Abdominal pain due to above
#Septic shock due to above in the setting of left lower lobe CAP
#Lactic acidosis
#CAP involving left lower lobe/right lower lobe
#Acute respiratory failure with hypoxia-requiring intubation mechanical ventilation.
Intubated 10/15/2023
#JOSE
#A-fib with RVR
#Elevated INR
#Transaminitis with elevated T. bili + elevated ALP
#Abnormal urinalysis with +1 leukocyte esterase
#Hypertension
#Reported history of COPD
#Former tobacco use disorder with [id number] history, quit about 15 years ago
Plan:
-
From the respiratory perspective overall he has improved since the ICU. His oxygen supplementation has decreased to 2-3 L nasal cannula.
Extubated 10/20/2023
Remains afebrile
Noted persistent leukocytosis.
Intermittently coughing some phlegm but not excessive. No hemoptysis.
Does not appear toxic
-
New/worsening left lower infiltrate could be atelectasis-doubt new pneumonia or worsening pneumonia. 10/22/2019
Less likely Leni as a pathogen at this point. I recommend against starting antifungals at this point. Will need close observation.
-
Has been on ceftriaxone and metronidazole for days. Continue for now. If there is suspicion of worsening infection then we will broaden the spectrum of antibiotic to Zosyn.
Continue secretion clearance interventions.
Encourage incentive spirometry
Will ad continue Acapella device
DuoNebs 3 times a day
Repeat chest x-ray 10/24/2023.
If worsening infiltrate may need to consider broadening spectrum antibiotics. Clinically not behaving like he has worsening pneumonia.
-
History of COPD: Not bronchospastic. Continue nebulizer
-
Status post exploratory laparotomy, subtotal colectomy.
Bowel ischemia transverse and ascending colon: Noted
Status post colon partial colectomy sigmoid and creation of end ileostomy. 10/18/2023
- Continue with broad-spectrum antibiotics to cover intra-abdominal source as well as pneumonia.
- Currently on ceftriaxone/Flagyl total -from the pulmonary perspective for 2 additional days. Antibiotics will be extended for intra-abdominal indication per surgery.
discontinued micafungin 10/17/2019.
Currently on TPN
-
Atrial fibrillation
Rate control
Now on heparin drip.
-
DVT ppx:heparin drip
Diet per surgery. - TPN
PPI for GI prophylaxis
-
Significantly deconditioned continue physical therapy Occupational Therapy
-
DNR status noted
-
Pulmonary will continue to follow for left lower lobe infiltrate mild hypoxemia and Leni in the sputum

Data:
CT abdomen/pelvis with IV contrast 10/15/2023:
Findings concerning for fecal impaction.
Large amount of fecal material throughout the colon.
Bilateral too small to characterize hypodense renal lesions likely benign cysts.
Severe atherosclerotic vascular disease.
Solid noncalcified left lower lobe pulmonary nodule. Continued surveillance recommended.
CXR 10/15/2023: Findings suggesting mild left lower lobe pneumonia.
Subjective Data
-
Date of Service:
Date of Service: October 23, 2023
Chief Complaint: Pulmonary Follow Up (Pneumonia)
Subjective:
Patient denies any new pulmonary complaints
Occasional coughing with no significant phlegm production.
Denies hemoptysis
Denies any chills
He remains mostly n.p.o. on TPN
Review of Systems
General: Fever (n)
Cardiopulmonary: Dyspnea (none at rest)
GI: Abdominal Pain (n) and Nausea (n)
Neuro: Headache (n)
Objective Data
Data Reviewed
Vital Signs / I&O / Oxygen:
Vital Signs
Temp Pulse Resp BP Pulse Ox
98.4 F 81 20 139/90 96
10/23/23 11:00 10/23/23 12:50 10/23/23 11:00 10/23/23 12:50 10/23/23 11:00
Intake and Output
10/22/23 10/23/23 10/24/23
06:59 06:59 06:59
Intake Total 1300 / 1300 1182 / 1182
Output Total 1365 / 1365 2800 / 2800
Balance -65 / -65 -1618 / -1618
SaO2 [CPAP] 95
SaO2 [A/C] 98
SaO2 96
Nasal Cannula flow liters per 3
minute
Physical Exam
General: Comfortable
HEENT: Normocephalic
Cardiovascular: S1-S2
Respiratory: Wheeze (n) and Crackles (Left base)
GI: Soft, Non Distended and Other (Colostomy)
Neurology: Awake, Alert, AO x 3 and No Motor Deficits
Labs/Micro/Reports
Lab Data
10/23/23 05:26
10/23/23 05:26
Laboratory Results
10/22/23 10/22/23 10/23/23
16:01 22:46 05:26
APTT 36.0 H 46.0 H 46.8 H
10/23/23
12:02
APTT 68.2 H
Microbiology
10/19/23 13:41 Endotracheal Respiratory Culture - Final
Yeast
10/19/23 13:41 Endotracheal Gram Stain - Final
[2023-10-23 13:31] VITALS: BMI 30.1
[2023-10-23 15:05] VITALS: BP 152/94
--- NOTE | 2023-10-23 16:20 | PTCARENOTE ---
Pt AAO x3, GAMA; able to position self in bed; refuses OOB to chair activity/q 2 hr turns; stated 'I'd rather not; I'm very comfortable right now'. VSS. Telemetry:A fib. Pt has +1 generalized anasarca. On nc 3 lpm- pulse ox 95%, no SOB noted; pt
suctions self orally with Yankauer for small amts clear/white mucus. Abd large; sl tender, BS (+); decreased, lv small amts clear liquids without c/o N/V. Ileostomy patent dark bile- colored drainage. Celaya P/I large amt clear kaleigh urine. Abd
Aquacell dsg intact. IVF's heparin drip @ 1700 units/hr (17 ml/hr ) and TPN @ 63 ml/hr infusing via Rt upper arm triple lumen PICC without sx of infiltration. Resting comfortably at present. Will continue to monitor.
[2023-10-23] MEDS: FLOMAX 0.4 MG PO (17:54)
[2023-10-23 19:15] VITALS: BP 163/99
[2023-10-23 19:31] LABS: APTT 85.2 Sec (23.4-35.0)
[2023-10-23 19:31] LABS: Glucose - Point of Care 283 mg/dl (70-99)
[2023-10-23] MEDS: NOVOLOG FLEXPEN-LOW RESISTANCE 3 UNITS SC (19:49)
[2023-10-23] MEDS: Parenteral Nutrition, Central 1500 IV (21:15)
[2023-10-23 23:23] VITALS: BP 161/98
[2023-10-24] VITALS (9 sets, daily range): BP systolic 129–166; BP diastolic 84–110; PULSE 94–110; O2SAT 95; BMI 30.1; BMI 30.4
[2023-10-24 00:13] LABS: Glucose - Point of Care 214 mg/dl (70-99)
[2023-10-24] MEDS: NOVOLOG FLEXPEN-LOW RESISTANCE 2 UNITS SC (00:13)
[2023-10-24 01:30] LABS: APTT 99.4 Sec (23.4-35.0)
--- NOTE | 2023-10-24 02:55 | PTCARENOTE ---
Chart review indicates to remove Celaya 10/23 at 0600. 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
[2023-10-24] MEDS: LOPRESSOR 25 MG PO ×2 (05:17→12:16)
[2023-10-24 06:01] LABS: APTT 92.5 Sec (23.4-35.0)
[2023-10-24 06:25] LABS: Hematocrit 32.6 % (39.0-52.0); Hemoglobin 10.9 g/dL (13.0-18.0); Mean Corp Hgb Conc. 33.4 g/dL (33.0-37.0); Mean Corpuscular Volume 92.6 fL (80.0-94.0); Mean Platelet Volume 9.5 fL (7.4-10.4); Platelet Count 269 10^3/uL (130-400); Red Blood Cell Count 3.52 10^6/uL (4.70-6.10); Red Cell Dist. Width 13.6 % (11.5-14.5); White Blood Cell Count 26.1 10^3/uL (4.8-10.8)
[2023-10-24 06:34] LABS: Glucose - Point of Care 171 mg/dl (70-99)
[2023-10-24] MEDS: NOVOLOG FLEXPEN-LOW RESISTANCE 1 UNITS SC (06:43)
[2023-10-24 06:46] LABS: Blood Urea Nitrogen 16 mg/dl (9-20); Calcium 8.1 mg/dl (8.4-10.2); Carbon Dioxide 33 mmol/L (22-30); Chloride 98 mmol/L (98-107); Estimated Creatinine Clearance > 125 ml/min; Glucose 230 mg/dl (70-99); Magnesium 1.6 mg/dl (1.6-2.3); Phosphorus 2.4 mg/dl (2.5-4.5); Potassium 3.6 mmol/L (3.5-5.1); Sodium 136 mmol/L (135-145); eGFR > 60.00
--- NOTE | 2023-10-24 07:25 | W.PN.HOSP.TC ---
Today's Communication/Plan
-
cont abx
empiric IV lasix started ascites fluid overload possible heart failure cirrhosis anasarca
IR consulted for diagnostic/therapeutic paracentesis tomorrow
ID eval requested
Checking BNP and ECHO
Diet TPN as per Surgery
Metoprolol transitioned to long acting
Assessment / Plan
Assessment / Plan
Physical Exam
General: No Apparent Distress
HEENT: Normocephalic
Cardiac: Irregularly Irregular S1/S2
GI: Soft nontender ostomy present with biliary output
Genito-urinary: No Costovertebral Tender
Neuro: AO x 3
Psych: Calm
73M afib HTN DM here for septic shock ischemic bowel s/p bowel resection ostomy creation and downgrade from ICU.
Septic shock POA
- resolved; off all pressors
- s/p stress dose steroids
- weaned off IVF as now on TPN
- transfer of out ICU
Acute surgical abdomen with stercoral colitis with severe ischemic bowel
- s/p disimpaction in ER
- clinically unstable 10/14
- emergent OR 10/14: ex lap, subtotal colectomy for mesenteric ischemia, ischemic colon
- s/p OR 10/17: exploratory laparotomy, partial colectomy (sigmoid), creation end ileostomy
- continue empiric Ceftriaxone/Flagyl per general surgery through 10/23, follow cultures.
- continue IV PPI
- diet: clears for comfort
- TPN per GS
Community acquired PNA, LLL
Vent dependent respiratory failure
- extubated 10/18
- currently on 2L; wean O2 as able
- continue empiric Ceftriaxone/Flagyl
Persistent Elevating Leukocytosis despite extended course IV abx as above
-Repeat CT abd/pelvis appreciated noted ascites possible cirrhosis moderate to severe subcutaneous edema.
-IR eval requested for diagnostic/therapeutic paracentesis
-ID eval requested
-checking BNP and ECHO
-empiric Lasix started for possible acute Heart Failure Fluid overload
JOSE from septic shock
Acute metabolic acidosis
- monitor renal function
- monitor labs while on TPN
A. Fib with RVR
- likely driven by septic shock
- monitor rates; transitioned to PO Metoprolol 25mg q6h further transitioned to long acting 50 mg BID
- cont IV Heparin gtt
Hypernatremia resolved
Mild transaminitis
resolved
Hx of Essential HTN
- holding JORY/HCTZ
-started on Lasix as above
Type 2 DM
- holding Metformin
- completed critical care insulin protocol
- continue SSI
- Diabetes CAR FRAMER following
Hx of COPD
Former tobacco use disorder with 54-oeqr-uybz history, quit about 15 years ago
Hypokalemia
Hypophosphatemia
- monitor and replete as necessary
Urinary retention
- continue Flomax
- Celaya catheter, eventual trial of void
DVT ppx: SCDs
Code: DNR
I spent a total of 50 minutes with the patient or on the floor. More than 50% of this time involved counseling and coordination of care.
Anticipated Discharge: > 48 hours
Subjective/Interval History
-
Date of Service: October 24, 2023
no acute distress. Tolerating clear liquid diet though appetite remains poor.
Objective Data
-
Labs:
Laboratory Results
10/23/23 10/24/23 10/24/23
19:05 01:12 05:42
WBC 26.1 H
Hgb 10.9 L
Hct 32.6 L
Plt Count 269
APTT 85.2 H 99.4 H 92.5 H
Sodium 136
Potassium 3.6
Chloride 98
Carbon Dioxide 33 H
BUN 16
Creatinine 0.4 L
Glucose 230 H
Calcium 8.1 L
Vital Signs:
Vital Signs
Temp Pulse Resp BP Pulse Ox
98.0 F 109 20 166/110 96
10/24/23 04:07 10/24/23 05:34 10/24/23 04:07 10/24/23 05:34 10/24/23 04:07
I&O
10/23/23 10/24/23 10/25/23
06:59 06:59 06:59
Intake Total 1182 / 1182 1880 / 1880
Output Total 2800 / 2800 2700 / 2700
Balance -1618 / -1618 -820 / -820
[2023-10-24] MEDS: DUONEB 3 ML INH ×2 (07:45→19:51)
--- NOTE | 2023-10-24 07:50 | PN.DE.MGMTRT ---
Insulin Management
- -
10/24/2023: Diabetes Management Follow up:
Patient admitted 10/14 with lower abdominal abdominal pain, N&V. PMH: PAF, HTN, COPD, BPH, former tobacco smoker T2DM and allergic rhinitis. . CT A/P-->Stercoral colitis with severe constipation s/p disimpaction in the ER, s/p ex lap with subtotal
colectomy- due to severe ischemic bowel on 10/15/2023. Noted for Septic shock requiring multiple pressors, LLL Community acquired PNA and Vent dependent respiratory failure.
Prior to admission, pt was taking Metformin 500mg BID. Current A1C 6.2%.
Pt sleeping soundly, resting in bed, did not awaken.
Patient now receiving TPN, glucose range 171 to 283. Receiving corrective insulin Q 6 hours. He is taking some PO liquids. Will start 10 units lantus in AM, first dose now due to glucose > 200 for 2 consecutive days. Will continue corrective
insulin Q6 as patient is starting to take clear liquids but in very small quantities.
Will follow for further needed adjustments.
Diabetes History
- -
Type of Diabetes: 2
Pre-Admission Diabetes Regimen
10/24/23
05:42
Creatinine 0.4 L
Lab Results
Hemoglobin A1c 6.2 % (4.0-5.6) H 10/16/23 03:28
Insulin Pump Settings
IP Diabetes Regimen
10/23/23 10/23/23 10/24/23
12:21 19:30 00:11
Glucose
POC Glucose 239 H 283 H 214 H
10/24/23 10/24/23
05:42 06:33
Glucose 230 H
POC Glucose 171 H
Meal type: Dinner
Meal type: Lunch
Meal type: Breakfast
Amount consumed: 5%
Amount consumed: 5%
Amount consumed: 5%
Patient Education
[2023-10-24 08:34] LABS: Glucose - Point of Care 198 mg/dl (70-99)
[2023-10-24] MEDS: PROTONIX IV 40 MG IV ×2 (08:49→20:19)
[2023-10-24] MEDS: NSS (PRESERVATIVE FREE) 10 ML IV ×2 (08:50→20:19)
[2023-10-24] MEDS: FLAGYL 500 MG 100 IV ×3 (08:51→23:35)
--- NOTE | 2023-10-24 09:18 | W.PN.PUL3 ---
Today's Communication / Plan
-
Continue Abx
Continue nebulizers
Secretion clearance intervention
Aspect precautions
Increase mobility as able; PT/OT recommend acute rehab upon discharge
Trend leukocytosis and fever curve.
Low threshold to broaden spectrum antibiotics if patient develop fevers. May need to repeat cultures.
Repeat CXR in 4 to 6 weeks to follow pneumonia resolution
Assessment
-
Assessment: 73-year-old male former tobacco smoker with past medical history of A-fib on Eliquis, hypertension, DM type II, BPH, history of COPD and allergic rhinitis who presents with lower abdominal pain, nausea/vomiting. Symptoms started last
night and he reports constipation for few days. Last BM about 3 days ago. Initial vitals in the ER showed he was in rapid A-fib with VR of 139 bpm, afebrile to 98.4 �F, breathing at 27 breaths minute, hypotensive to 76/59, and SpO2 93% on room
air. EKG confirmed A-fib with RVR. Labs showed leukocytosis to 20.4, creatinine 1.5, lactate 7.4, and T. bili 1.7. Blood culture collected. CT abdomen/pelvis showed fecal impaction without evidence for bowel obstruction. CXR showed retrocardiac
opacification concerning for left lower lobe pneumonia. He was given aztreonam/Flagyl in the ER, fentanyl, morphine, total of 3 L NS 0.9% and Zofran. He was admitted to the ICU for close monitoring with critical care services consulted for
additional management/recommendations.
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
-
Pulmonary call back on 10/22/2023 for yeast on the sputum culture from endotracheal aspiration.
Impression:
Yeast on sputum culture
CAP involving LLL
Bilateral pleural effusions
Persistent leukocytosis
Hyperglycemia
-
#Stercoral colitis with severe constipation s/p disimpaction in the ER
Status post expiratory laparotomy/subtotal colectomy-diagnosis bowel ischemia. 10/15/2023
#Abdominal pain due to above
#Septic shock due to above in the setting of left lower lobe CAP - shock state resolved
#Lactic acidosis
#CAP involving left lower lobe
#Acute respiratory failure with hypoxia-requiring intubation mechanical ventilation.
Intubated 10/15/2023, extubated 10/19
#JOSE - resolved
#A-fib with RVR - now rate controlled
#Elevated INR
#Transaminitis with elevated T. bili + elevated ALP - now normalized
#Abnormal urinalysis with +1 leukocyte esterase
#Hypertension
#Reported history of COPD
#Former tobacco use disorder with 63-hkyq-fidr history, quit about 15 years ago
Plan:
-
From the respiratory perspective overall he has improved since being out of ICU. His oxygen supplementation has decreased to 2-3 L nasal cannula.
Extubated 10/20/2023
Remains afebrile
Noted persistent leukocytosis.
Intermittently coughing some phlegm but not excessive. No hemoptysis.
Does not appear toxic
-
Left lower infiltrate could be atelectasis-doubt new pneumonia or worsening pneumonia. 10/22/2019
Less likely Leni as a pathogen at this point. I recommend against starting antifungals at this point. Will need close observation.
-
Currently on IV Flagyl (since 10/14), s/p ceftriaxone (10/17 - 10/22) + s/p cefepime (10/14 - 10/17) and lastly s/p micafungin (10/14 - 10/15) If there is suspicion of worsening infection then broaden the spectrum of antibiotic to Zosyn.
Continue secretion clearance interventions.
Encourage incentive spirometry
Continue Acapella device
DuoNebs TID
If worsening infiltrate may need to consider broadening spectrum antibiotics. Clinically not behaving like he has worsening pneumonia.
Diurese as tolerated given pleural effusions and moderate to severe subcutaneous edema with ascites seen on imaging from today (10/24/2023)
-
History of COPD: Not bronchospastic. Continue nebulized bronchodilators
-
Status post exploratory laparotomy, subtotal colectomy.
Bowel ischemia transverse and ascending colon: Noted
Status post colon partial colectomy sigmoid and creation of end ileostomy. 10/18/2023
- Continue with broad-spectrum antibiotics to cover intra-abdominal source as well as pneumonia.
- Currently on Flagyl-from the pulmonary perspective for 2 additional days. Antibiotics will be extended for intra-abdominal indication per surgery.
discontinued micafungin 10/17/2019.
Currently on TPN + clear liquid diet - defer advancing diet to surgery
-
Atrial fibrillation
Rate controlled with goal HR<110
Replete K>4, Mg>2
Continue heparin drip.
-
DVT ppx:heparin drip
Diet per surgery; currently on TPN + clear liquid diet
PPI for GI prophylaxis
-
Significantly deconditioned continue physical therapy Occupational Therapy - rec'd acute rehab on discharge
-
DNR status noted
-
Pulmonary will continue to follow for left lower lobe infiltrate mild hypoxemia.

Data:
CT abdomen/pelvis with IV contrast 10/15/2023:
Findings concerning for fecal impaction.
Large amount of fecal material throughout the colon.
Bilateral too small to characterize hypodense renal lesions likely benign cysts.
Severe atherosclerotic vascular disease.
Solid noncalcified left lower lobe pulmonary nodule. Continued surveillance recommended.
CT ABD/pelvis with IV contrast 10/24/2023:
Status post subtotal colectomy.
Moderate ascites is present in all 4 quadrants, new since prior examination of October 15, 2023. There is no evidence of a focal collection to suggest an abscess.
Bilateral pleural effusions, left slightly greater than right. Adjacent compressive atelectasis within the posterior lower lungs.
Liver contour appears subtly nodular, suggestive of cirrhosis. No evidence of a focal hepatic mass lesion.
The rectum is distended with stool, transverse dimension of 7.9 cm. There is mild perirectal and presacral edema with no significant rectal wall thickening identified.
Moderate to severe subcutaneous edema.
CXR 10/15/2023: Findings suggesting mild left lower lobe pneumonia.
Total time spent today was 35 minutes for this encounter. Time includes reviewing laboratory test/imaging results, reviewing pertinent medical records, obtaining and reviewing medical history, performing an appropriate exam, ordering medications,
tests and procedures. Time also includes documentation of this encounter, coordinating patient care and communicating with other healthcare professionals. Total time does not include separately billed tests performed on this date of service.
Subjective Data
-
Date of Service:
Date of Service: October 24, 2023
Chief Complaint: Pulmonary Follow Up (Pneumonia)
Subjective:
Patient seen and evaluated today at bedside. Remains on TPN. Afebrile overnight however WBC is worsening. Overall he feels tired, without shortness of breath, chest pain or abdominal pain. Currently on 2 L/min nasal cannula breathing
comfortably. He is tolerating sips of water/clear liquidds without any nausea, vomiting or abdominal pain.
Review of Systems
General: Other (Negative unless mentioned above)
Objective Data
Data Reviewed
Vital Signs / I&O / Oxygen:
Vital Signs
Temp Pulse Resp BP Pulse Ox
97.8 F 78 15 160/106 97
10/24/23 07:05 10/24/23 07:48 10/24/23 07:48 10/24/23 07:05 10/24/23 11:47
Intake and Output
10/23/23 10/24/23 10/25/23
06:59 06:59 06:59
Intake Total 1182 / 1182 1880 / 1880
Output Total 2800 / 2800 2700 / 2700
Balance -1618 / -1618 -820 / -820
SaO2 [CPAP] 95
SaO2 [A/C] 98
SaO2 97
Nasal Cannula flow liters per 3
minute
Physical Exam
General: Respiratory Distress (negative), Comfortable, Chills (negative) and Sweats (negative)
HEENT: Normocephalic and Anicteric
Cardiovascular: S1-S2 and Peripheral Edema (+1 lower extremity edema bilaterally)
Respiratory: Wheeze (n), Crackles (Left base), Rhonchi (negative) and Non-Labored Respirations
GI: Soft, Non Distended, Non Tender, Normal Bowel Sounds and Other (Ileostomy with dark stool seen in ostomy bag)
Neurology: AO x 3 and Tremors (negative)
Skin: Warm, Dry and Jaundice (negative)
Labs/Micro/Reports
Lab Data
10/24/23 05:42
10/24/23 05:42
Laboratory Results
10/23/23 10/23/23 10/24/23
12:02 19:05 01:12
APTT 68.2 H 85.2 H 99.4 H
10/24/23
05:42
APTT 92.5 H
Microbiology
10/19/23 13:41 Endotracheal Respiratory Culture - Final
Yeast
10/19/23 13:41 Endotracheal Gram Stain - Final
[2023-10-24] MEDS: OMNIPAQUE 50 ML PO (10:02)
--- NOTE | 2023-10-24 10:04 | W.PN.GS2 ---
Today's Communication / Plan
-
--CT abdomen/pelvis with PO and IV
--Change midline dressing with ostomy nurses to dry gauze and tape
--CXR pending, UA
--TPN reordered
Assessment / Plan
-
73 yo male with h/o of AFIB on Eliquis presenting with abdominal pain with fecal impaction on initial CT, disimpacted in ED but without relief in pain. Taken to the OR emergently on 10/15 as he clinically deteriorated with increasing abdominal pain.
POD #9 s/p ex lap with subtotal colectomy in a damage control operation
POD #6 s/p segmental sigmoid resection, end ileostomy and abd wound closure
AFVSS
Extubated 10/18 and now on NC for O2, loose cough
WBC improved initially but now trending back up, H/H stable. Differential broad
+stool/flatus in ostomy.
Celaya replaced for urinary retention on 10/19.
--CT abdomen/pelvis with PO and IV
--Clears
--Continue TPN, nutrition following with us.
--C/W Celaya/Flomax, check UA
--CXR read pending, no worsening O2 requirements
--Cont Ceftriaxone and Flagyl, ?restart Micafungin
--Wound/stoma nurse eval for ostomy care
--VTE ppx with SCD's and heparin gtt (no bolus), trend hemoglobin.
--General Surgery will continue to follow
Subjective Data
-
Date of Service: October 24, 2023
No major complaints. Denies worsening abdominal pain. No nausea or bloating. Denies chest pain or shortness of breath. No dysuria. No fevers. Minimal ambulation.
Objective Data
-
Intake and Output
10/23/23 10/24/23 10/25/23
06:59 06:59 06:59
Intake Total 1182 / 1182 1880 / 1880
Output Total 2800 / 2800 2700 / 2700
Balance -1618 / -1618 -820 / -820
Intake:
Oral fluids 0 / 0 360 / 360
IV fluids (Total) 204 / 204
IV piggybacks 294 / 294 560 / 560
TPN/PPN 888 / 888 756 / 756
Output:
Liquid stool amount 200 / 200 100 / 100
Ileostomy 200 / 200 100 / 100
Urine, Celaya 2600 / 2600 2600 / 2600
Vital Signs
Temp Pulse Resp BP Pulse Ox
97.8 F 78 15 160/106 96
10/24/23 07:05 10/24/23 07:48 10/24/23 07:48 10/24/23 07:05 10/24/23 07:48
Lab Results
10/24/23 05:42
10/24/23 05:42
Calcium 8.1 mg/dl (8.4-10.2) L 10/24/23 05:42
Phosphorus 2.4 mg/dl (2.5-4.5) L 10/24/23 05:42
Magnesium 1.6 mg/dl (1.6-2.3) 10/24/23 05:42
Total Bilirubin 0.4 mg/dl (0.2-1.3) 10/23/23 05:26
Direct Bilirubin 0.6 mg/dl (0.0-0.4) H 10/16/23 03:28
AST 30 U/L (17-59) 10/23/23 05:26
ALT 22 U/L (0-50) 10/23/23 05:26
Alkaline Phosphatase 73 U/L (38-126) 10/23/23 05:26
Total Protein 4.6 g/dl (6.3-8.2) L 10/23/23 05:26
Albumin 2.3 g/dl (3.5-5.0) L 10/23/23 05:26
Physical Exam
-
Gen: NAD
Abd: soft, minimal tenderness, mild distension, non-peritoneal, midline dressing shadowing, ostomy black, thickened, old bloody drainage, ELIEL serosang
[2023-10-24] MEDS: LANTUS 0.1 UNITS SC (10:30)
[2023-10-24 11:00] LABS: Glucose - Point of Care 254 mg/dl (70-99)
[2023-10-24 11:25] LABS: Urine Albumin Negative (Neg - Trace); Urine Bilirubin Negative (Negative); Urine Character Clear (Clear); Urine Color Yellow; Urine Glucose 3+ (Negative); Urine Ketone Negative (Negative); Urine Leukocyte Negative (Negative); Urine Nitrite Negative (Negative); Urine Occult Blood Negative (Negative); Urine Specific Gravity 1.015 (<1.030); Urine Urobilinogen Negative (Neg - 1+); Urine pH 6.5 (5.0-9.0)
--- NOTE | 2023-10-24 11:53 | CON.MD ---
Documented by User: Laura Shore MD, Resident 10/24/23 18:54
Consultation - Medical
-
Referring Provider: Glory Neil MD
Chief Complaint: Debility
History of Present Illness:
The patient is a 73 year old male who presented to ER with abdominal pain on 10/15/23. He had constipation for last 3 days and started to have nausea and vomiting. He was admitted to hospital and he was taken to the OR emergently on 10/15/23 as due
his clinical deterioration with increased abdominal pain and had an exploratory�laporotomy with subtotal colectomy in a damage control operation. At the same time he was also diagnosed with PNA. 3 days later The patient had another abdominal
surgery including segmental sigmoid resection, end ileostomy and abdominal wound closure on 10/18/23. Today the patient was seen in his bed with a stoma/colostomy bag and TPN due abdominal surgery. Bandages were seen on the abdominal area under
colostomy. The patient reported that he started to take food orally this morning and he will have an abdominal CT for control. The patient reported feeling better recently.
Social History
Tobacco: Former Smoker (Quit smoking 10-15 years ago. Approx 40 pack years total use.)
Alcohol: Occasional
Drug: None
Personal:
Living: With Family
Family History
Family History: Not pertinent
Past Medical History:
A-fib ( was on Eliquis)
Hypertension
DM-II
ASCVD / PAD
COPD
BPH
Lyme Arthritis (current)
Procedure History:
Appendectomy (Age 7)
Family History: Non-relevant
Social History:
Functional Level Premorbidly: Independent with all activities
Functional Level Currently:Bed Mobility -Supine to sit- Moderate assistance /-Sit to supine- Moderate assistance -Rolling- Moderate assistance
-Sit to stand- Moderate assistance/-Stand to sit- Moderate assistance/ Ambulation/Weight Bearing/Gait:Ambulation Patient able to ambulate 6 ft x 1 with RW and Mod A x 2/-Weight Bearing Status: Full weight bearing
Tobacco: Denies
Alcohol: Denies
Drug use: Denies
Lives with:
24-hour assistance available:
Number of floors: Multi-level
# steps to enter: 4
# steps to second floor: many
Potential First floor set up:available
Driving: Yes
Occupation: Retired
Allergies
Allergy/AdvReac Type Severity Reaction Status Date / Time
Penicillins Allergy Unknown Verified 10/15/23 04:04
Home Medications
albuterol sulfate 90 mcg/actuation aerosol inhaler 2 puff inhalation Q6H PRN SOB 10/15/23
apixaban 5 mg tablet (Eliquis) 5 mg PO BID Blood Clot Prevention/Tx 10/15/23
doxycycline hyclate 100 mg tablet 100 mg PO BID Infection 10/15/23
lisinopril 20 mg-hydrochlorothiazide 25 mg tablet 1 tab PO DAILY Blood Pressure 10/15/23
metformin 500 mg tablet 500 mg PO BID Diabetes 10/15/23
tamsulosin 0.4 mg capsule 0.4 mg PO DAILY Urinary Issue 10/15/23
Review of Systems:
Constitutional: (x) Normal _
Eye: (x) Normal _
Ear/Nose/Throat: (x) Normal _
Respiratory: Crackles on the left base
Cardiovascular: (x) Normal _
Gastrointestinal: (x) Non-distended, soft, colostomy present with dark colored stool
Genitourinary: (x) Normal _
Musculoskeletal: (x) generalized muscle weakness due debility. No focal motor deficit.
Integumentary: (x) Normal _
Neurologic: Awake, Alert, AO x 3 and No Motor Deficits
Psychiatric: (x) Normal _
Endocrine: (x) Normal _
Hematologic/Lymphatic: (x) Normal _
Allergic/Immunologic: (x) Normal _
Vital Signs
Temp Pulse Resp BP Pulse Ox
98.5 F 98 24 145/103 95
10/24/23 16:32 10/24/23 16:32 10/24/23 16:32 10/24/23 16:32 10/24/23 16:32
Physical Exam:
General Appearance/Observation: Well-developed, well-nourished individual in no apparent distress.
Pain/Comfort Assessment: pain some on abdominal area.No tenderness.
Integumentary/Operative Site:
Pressure Ulcer Evaluation: absent over heels.
Eyes: Conjunctiva/Lids: normal Pupils: pupils equal round and reactive to light and Accommodation
Ears/Nose/Throat: oral mucosa moist, throat clear. Lips/Teeth/Gums: normal
Neck: No muscle spasm or tenderness
Cardiovascular: Heart: regular, no murmur
Pulses: dorsalis pedis 2+ bilaterally
Respiratory: Crackles on the left base
Gastrointestinal: Non-distended, soft, colostomy present with dark colored stool on the right side.
Genitourinary: Celaya present
Rectal Exam: Deferred
Extremities: Edema: None Cyanosis: None Trophic changes: None
Neurology Exam:
Orientation: Alert, Oriented to self, Time, Place
Memory: Intact immediately and at 5 minutes
Two step command: Intact
Naming: Intact
Cranial Nerves:
CNII: Pupillary light reflex: Intact Visual Field: Intact
CN III, IV, : Extraocular muscles: Intact
CN V: Facial Sensation at Forehead: Intact, Maxilla: Intact, Mandible: Intact
CN VII: Facial movement: Symmetric
CN VIII: Hearing: Normal
CN IX/X: Speech & swallow: Normal, Position of Uvula: Midline
CN XI: Shoulder shrug: Symmetric
CN XII: Tongue protrusion: Midline
Sensory:
Light touch: Intact in bilateral upper and lower extremities
Reflexes:
Biceps: 2+ bilaterally
Brachioradialis: 2+ bilaterally
Triceps: 2+ bilaterally
Patellar: 2+ bilaterally
Achilles: 2+ bilaterally
Babinski: Down going bilaterally
Clonus: None
Mattie: Negative bilaterally
Cerebellar: Dysmetria/Ataxia: None
Musculoskeletal:
Motor: (Manual muscle scale 0-5) Bilateral Upper extremity motor Strength 4-5/5
Bilateral lower extremity motor muscle strength: HF/KF/KE 3/5 (likely due his debility)
Bilateral DF/PF: 5/5
Tone: Normal in all extremities
Range of Motion: Passively within normal limits in all extremities
Lab Results
Diagnostic Results: as per HPI
Abdominal CT ON 10/24/23:
IMPRESSION: Status post subtotal colectomy.
Moderate ascites is present in all 4 quadrants, new since prior examination of October 15, 2023. There is no evidence of a focal collection to suggest an abscess.
Bilateral pleural effusions, left slightly greater than right. Adjacent compressive atelectasis within the posterior lower lungs.
Liver contour appears subtly nodular, suggestive of cirrhosis. No evidence of a focal hepatic mass lesion.
The rectum is distended with stool, transverse dimension of 7.9 cm. There is mild perirectal and presacral edema with no significant rectal wall thickening identified.
Moderate to severe subcutaneous edema.
Chest X-Ray on 10/24/23
IMPRESSION:
Interval improvement in parenchymal opacity involving the left mid to lower lung, suggesting interval improvement in left lower lobe pneumonia and/or atelectasis.
Assessment: 73 year old male who was admitted to the hospital due abdominal pain and had 2 surgery due ischemic bowel. Before hospitalization he was independent with all daily activities without any difficulty. He started to feel better recently and
started to oral intake this morning. WBC count of the patient has been increasing while the patient is still receiving antibiotics. The patient can be considered for the acute rehab clinic after he is medically cleared from a new/current infection.
Plan
PM&R PT/OT to increase independence with ADLs, improve balance, coordination, endurance, strength, mobility, community reintegration, decreased burden of care on others and family education.
Debility due hospitalization related post exploratory laparotomy, subtotal colectomy:
-Bowel ischemia transverse and ascending colon: Noted
-Status post colon partial colectomy sigmoid and creation of end ileostomy. 10/18/2023
-Continue with broad-spectrum antibiotics to cover intra-abdominal source as well as pneumonia.
-Currently on Flagyl-from the pulmonary perspective. Antibiotics will be extended for intra-abdominal indication per surgery.
-Currently on TPN + clear liquid diet - defer advancing diet to surgery
Left lower infiltrate: Could be atelectasis-doubt new pneumonia or worsening pneumonia.Follow up with pulmonology for further recommendation
-Encourage incentive spirometry -Continue Acapella device - DuoNebs TID
(If worsening infiltrate may need to consider broadening spectrum antibiotics. Clinically not behaving like he has worsening pneumonia.Diurese as tolerated by Pulmonology rec)- Pulmonary will continue to follow up.
History of COPD: Nebulized bronchodilators
Atrial fibrillation: Rate controlled with goal HR<110, Replete K>4, Mg>2, Continue heparin drip.
DVT ppx: heparin drip
Diet per surgery: currently on TPN + clear liquid diet
GI prophylaxis: PPI
Functional and Medical Goals: Independent with ADL�s, ambulation, transfers
Discharge Destination: Acute rehab clinic after he is medically cleared from a new/current infection.
Summary of recommendations:
Discharge Destination: The patient can be considered for the acute rehab clinic after he is medically cleared from a new/current infection. We will keep follow up the patient.
Please contact me with any questions or concerns. Thanks Dr Mcknight for involving me in this patient`s care.
Laura Shore MD
[facility]itional Year [facility] Program

Documented by User: Erick Mcknight MD 10/24/23 23:59
Consultation - Medical
-
Referring Provider: Glory Neil MD
Chief Complaint: Debility
History of Present Illness:
The patient is a 73 year old male who presented to ER with abdominal pain on 10/15/23. He had constipation for last 3 days and started to have nausea and vomiting. He was admitted to hospital and he was taken to the OR emergently on 10/15/23 as due
his clinical deterioration with increased abdominal pain and had an exploratory�laporotomy with subtotal colectomy in a damage control operation. At the same time he was also diagnosed with PNA. 3 days later The patient had another abdominal
surgery including segmental sigmoid resection, end ileostomy and abdominal wound closure on 10/18/23. Today the patient was seen in his bed with a stoma/colostomy bag and TPN due abdominal surgery. Bandages were seen on the abdominal area under
colostomy. The patient reported that he started to take food orally this morning and he will have an abdominal CT for control. The patient reported feeling better recently.
Social History
Tobacco: Former Smoker (Quit smoking 10-15 years ago. Approx 40 pack years total use.)
Alcohol: Occasional
Drug: None
Personal:
Living: With Family
Family History
Family History: Not pertinent
Past Medical History:
A-fib ( was on Eliquis)
Hypertension
DM-II
ASCVD / PAD
COPD
BPH
Lyme Arthritis (current)
Procedure History:
Appendectomy (Age 7)
Family History: Non-relevant
Social History:
Functional Level Premorbidly: Independent with all activities
Functional Level Currently:Bed Mobility -Supine to sit- Moderate assistance /-Sit to supine- Moderate assistance -Rolling- Moderate assistance
-Sit to stand- Moderate assistance/-Stand to sit- Moderate assistance/ Ambulation/Weight Bearing/Gait:Ambulation Patient able to ambulate 6 ft x 1 with RW and Mod A x 2/-Weight Bearing Status: Full weight bearing
Tobacco: Denies
Alcohol: Denies
Drug use: Denies
Lives with:
24-hour assistance available:
Number of floors: Multi-level
# steps to enter: 4
# steps to second floor: many
Potential First floor set up:available
Driving: Yes
Occupation: Retired
Allergies
Allergy/AdvReac Type Severity Reaction Status Date / Time
Penicillins Allergy Unknown Verified 10/15/23 04:04
Home Medications
albuterol sulfate 90 mcg/actuation aerosol inhaler 2 puff inhalation Q6H PRN SOB 10/15/23
apixaban 5 mg tablet (Eliquis) 5 mg PO BID Blood Clot Prevention/Tx 10/15/23
doxycycline hyclate 100 mg tablet 100 mg PO BID Infection 10/15/23
lisinopril 20 mg-hydrochlorothiazide 25 mg tablet 1 tab PO DAILY Blood Pressure 10/15/23
metformin 500 mg tablet 500 mg PO BID Diabetes 10/15/23
tamsulosin 0.4 mg capsule 0.4 mg PO DAILY Urinary Issue 10/15/23
Review of Systems:
Constitutional: (x) abNormal _fatigue
Eye: (x) Normal _
Ear/Nose/Throat: (x) Normal _
Respiratory: Crackles on the left base
Cardiovascular: (x) Normal _
Gastrointestinal: (x) Non-distended, soft, colostomy present with dark colored stool
Genitourinary: (x) Normal _
Musculoskeletal: (x) generalized muscle weakness due debility. No focal motor deficit.
Integumentary: (x) Normal _
Neurologic: Awake, Alert, AO x 3 and No Motor Deficits
Psychiatric: (x) Normal _
Endocrine: (x) Normal _
Hematologic/Lymphatic: (x) Normal _
Allergic/Immunologic: (x) Normal _
Vital Signs
Temp Pulse Resp BP Pulse Ox
98.5 F 98 24 145/103 95
10/24/23 16:32 10/24/23 16:32 10/24/23 16:32 10/24/23 16:32 10/24/23 16:32
Physical Exam:
General Appearance/Observation: Well-developed, well-nourished individual in no apparent distress.
Pain/Comfort Assessment: pain moderate over abdominal area. No tenderness.
Integumentary/Operative Site:
Pressure Ulcer Evaluation: absent over heels.
Eyes: Conjunctiva/Lids: normal Pupils: pupils equal round and reactive to light and Accommodation
Ears/Nose/Throat: oral mucosa moist, throat clear. Lips/Teeth/Gums: normal
Neck: No muscle spasm or tenderness
Cardiovascular: Heart: regular, no murmur
Pulses: dorsalis pedis 2+ bilaterally
Respiratory: Crackles on the left base
Gastrointestinal: Non-distended, soft, colostomy present with dark colored stool on the right side.
Genitourinary: Celaya present with clear yellow urine
Rectal Exam: Deferred
Extremities: Edema: None Cyanosis: None Trophic changes: None
Neurology Exam:
Orientation: Alert, Oriented to self, Time, Place
Memory: Intact for recent medical concerns.
Two step command: Intact
Naming: Intact
Cranial Nerves:
CNII: Pupillary light reflex: Intact Visual Field: Intact
CN III, IV, : Extraocular muscles: Intact
CN V: Facial Sensation at Forehead: Intact, Maxilla: Intact, Mandible: Intact
CN VII: Facial movement: Symmetric
CN VIII: Hearing: Normal
CN IX/X: Speech & swallow: Normal, Position of Uvula: Midline
CN XI: Shoulder shrug: Symmetric
CN XII: Tongue protrusion: Midline
Sensory:
Light touch: Intact in bilateral upper and lower extremities
Reflexes:
Biceps: 2+ bilaterally
Brachioradialis: 2+ bilaterally
Triceps: 2+ bilaterally
Patellar: 2+ bilaterally
Achilles: 2+ bilaterally
Babinski: Down going bilaterally
Clonus: None
Mattie: Negative bilaterally
Cerebellar: Dysmetria/Ataxia: None
Musculoskeletal:
Motor: (Manual muscle scale 0-5) Bilateral Upper extremity motor Strength 4-5/5
Bilateral lower extremity motor muscle strength: HF/KF/KE 3-4/5
Bilateral DF/PF: 5/5
Tone: Normal in all extremities
Range of Motion: Passively within normal limits in all extremities
Lab Results
Laboratory Data
10/24/23 05:42
10/24/23 05:42
PT 19.8 Sec (11.4-14.6) H 10/16/23 03:28
INR 1.70 10/16/23 03:28
APTT 92.5 Sec (23.4-35.0) H 10/24/23 05:42
Total Bilirubin 0.4 mg/dl (0.2-1.3) 10/23/23 05:26
Direct Bilirubin 0.6 mg/dl (0.0-0.4) H 10/16/23 03:28
AST 30 U/L (17-59) 10/23/23 05:26
ALT 22 U/L (0-50) 10/23/23 05:26
Alkaline Phosphatase 73 U/L (38-126) 10/23/23 05:26
Total Protein 4.6 g/dl (6.3-8.2) L 10/23/23 05:26
Albumin 2.3 g/dl (3.5-5.0) L 10/23/23 05:26
Diagnostic Results: as per HPI
Abdominal CT ON 10/24/23:
IMPRESSION: Status post subtotal colectomy.
Moderate ascites is present in all 4 quadrants, new since prior examination of October 15, 2023. There is no evidence of a focal collection to suggest an abscess.
Bilateral pleural effusions, left slightly greater than right. Adjacent compressive atelectasis within the posterior lower lungs.
Liver contour appears subtly nodular, suggestive of cirrhosis. No evidence of a focal hepatic mass lesion.
The rectum is distended with stool, transverse dimension of 7.9 cm. There is mild perirectal and presacral edema with no significant rectal wall thickening identified.
Moderate to severe subcutaneous edema.
Chest X-Ray on 10/24/23
IMPRESSION:
Interval improvement in parenchymal opacity involving the left mid to lower lung, suggesting interval improvement in left lower lobe pneumonia and/or atelectasis.
Assessment: 73 year old male who was admitted to the hospital due abdominal pain and had 2 surgery due ischemic bowel. Before hospitalization he was independent with all daily activities without any difficulty. He started to feel better recently and
started to oral intake this morning. WBC count of the patient has been increasing while the patient is still receiving antibiotics. The patient can be considered for the acute rehab clinic after he is medically cleared from a new/current infection.
Plan
PM&R PT/OT to increase independence with ADLs, improve balance, coordination, endurance, strength, mobility, community reintegration, decreased burden of care on others and family education.
Debility due hospitalization related post exploratory laparotomy, subtotal colectomy:
-Bowel ischemia transverse and ascending colon: Noted
-Status post colon partial colectomy sigmoid and creation of end ileostomy. 10/18/2023
-Continue with broad-spectrum antibiotics to cover intra-abdominal source as well as pneumonia.
-Currently on Flagyl-from the pulmonary perspective. Antibiotics will be extended for intra-abdominal indication per surgery.
-Currently on TPN + clear liquid diet - defer advancing diet to surgery
Left lower infiltrate: Could be atelectasis-doubt new pneumonia or worsening pneumonia.Follow up with pulmonology for further recommendation
-Encourage incentive spirometry -Continue Acapella device - DuoNebs TID
(If worsening infiltrate may need to consider broadening spectrum antibiotics. Clinically not behaving like he has worsening pneumonia.Diurese as tolerated by Pulmonology rec)- Pulmonary will continue to follow up.
History of COPD: Nebulized bronchodilators
Leukocytosis: still rising, would like to see it improve prior to acute rehab, monitor
Post op anemia: 10-11 range, monitor
Atrial fibrillation: Rate controlled with goal HR<110, Replete K>4, Mg>2, Continue heparin drip.
DVT ppx: heparin drip, transition to another option as able
Diet per surgery: currently on TPN + clear liquid diet, must be tolerating PO to go to most Acute rehabs.
GI prophylaxis: PPI
Functional and Medical Goals: Independent with ADL�s, ambulation, transfers
Discharge Destination: Acute rehab clinic after he is medically cleared from a new/current infection.
Summary of recommendations:
Discharge Destination: The patient can be considered for the acute rehab clinic after he is medically cleared from a new/current infection. We will keep follow up the patient.
DVT ppx: heparin drip, transition to another option as able
Diet per surgery: currently on TPN + clear liquid diet, must be tolerating PO to go to most Acute rehabs.
Leukocytosis: still rising, would like to see it improve prior to acute rehab, monitor
Post op anemia: 10-11 range, monitor
Please contact me with any questions or concerns. Thanks Dr Mcknight for involving me in this patient`s care.
Laura Shore MD
Transitional Year Residency Program
Attending Statement:
I saw and examined the patient today.� Reviewed care plan with patient, , and resident.� I agree with the above subjective and physical exam, and plan as documented with adjustments made as necessary. Overall patient with ischemic bowel S/P
ex-lap and colostomy. Started on clear diet, still getting TPN. Persistent urinary retention with void trial as soon as possible. Also with rising leukocytosis and stable anemia.
[2023-10-24] MEDS: ROCEPHIN 1000 MG IV (12:14)
[2023-10-24] MEDS: STERILE WATER FOR INJECTION 10 ML IV (12:15)
[2023-10-24] MEDS: NOVOLOG FLEXPEN-LOW RESISTANCE 3 UNITS SC ×3 (12:16→23:35)
[2023-10-24] MEDS: DUONEB INH (13:26)
[2023-10-24 14:33] LABS: COVID-19 Antigen Negative (Negative)
[2023-10-24] MEDS: HEPARIN 25000 UNITS/250 ML IV (14:48)
--- NOTE | 2023-10-24 15:30 | WOUNDNOTE ---
WON RN NOTE: Stoma remains dark in color, Dr. Martin aware as read in report. Output dark brown stool, no leakage on wafer. Patient's unable to stay for teaching session and planned earlier. Patient states he does not want pouch changed today,
requested to be tomorrow when returns.
[2023-10-24] MEDS: NEUTRA-PHOS POWDER PACKET 250 MG PO ×2 (16:27→20:21)
[2023-10-24] MEDS: FLOMAX 0.4 MG PO (16:27)
--- NOTE | 2023-10-24 17:10 | CM ---
CM following for transfer to [facility] at discharge. Note in [facility] from [facility] social service liaison; [facility] cannot admit until [facility] is off TPN. [facility] is recommended progression of diet as able to tolerate.
CM will continue to follow for discharge planning; hopefully will be appropriate for [facility] when medically stable for transfer.
[2023-10-24 17:32] LABS: Glucose - Point of Care 269 mg/dl (70-99)
[2023-10-24] MEDS: LASIX 40 MG IV (17:36)
[2023-10-24 18:26] LABS: NT-proBNP 3680 pg/ml
[2023-10-24] MEDS: TOPROL XL 50 MG PO (20:19)
[2023-10-24] MEDS: Parenteral Nutrition, Central 1500 IV (22:07)
[2023-10-24 23:33] LABS: Glucose - Point of Care 296 mg/dl (70-99)
[2023-10-25] VITALS (23 sets, daily range): BP systolic 99–152; BP diastolic 67–103; BMI 29.9
[2023-10-25 05:51] LABS: Lactic Acid 1.3 mmol/L (0.7-2.0)
[2023-10-25 05:57] LABS: Glucose - Point of Care 287 mg/dl (70-99)
[2023-10-25] MEDS: NOVOLOG FLEXPEN-LOW RESISTANCE 3 UNITS SC (05:58)
[2023-10-25] MEDS: HEPARIN 25000 UNITS/250 ML IV (05:58)
[2023-10-25 06:10] LABS: % Basophils 0.2 % (0-2); % Eosinophils 0.7 % (0-6); % Immature Granulocytes 2.1 % (0-0.5); % Monocytes 7.2 % (1.7-9.3); % Neutrophils 84.8 % (42.2-75.2); Absolute Eosinophils 0.2 10^3/uL (0-0.7); Absolute Immature Granulocytes 0.5 10^3/uL (0-0.05); Absolute Monocytes 1.5 10^3/uL (0.1-0.6); Absolute Neutrophils 17.8 10^3/uL (1.4-6.5); Hematocrit 23.9 % (39.0-52.0); Hemoglobin 8.1 g/dL (13.0-18.0); Mean Corp Hgb Conc. 33.9 g/dL (33.0-37.0); Mean Corpuscular Volume 91.6 fL (80.0-94.0); Mean Platelet Volume 9.4 fL (7.4-10.4); Nucleated Red Blood Cells % 0 % (-); Platelet Count 286 10^3/uL (130-400); Red Blood Cell Count 2.61 10^6/uL (4.70-6.10); Red Cell Dist. Width 13.6 % (11.5-14.5); White Blood Cell Count 20.9 10^3/uL (4.8-10.8)
[2023-10-25 06:12] LABS: APTT 119.1 Sec (23.4-35.0)
[2023-10-25 06:27] LABS: ALT (SGPT) 16 U/L (0-50); AST (SGOT) 26 U/L (17-59); Albumin 2.2 g/dl (3.5-5.0); Alkaline Phosphatase 58 U/L (38-126); Blood Urea Nitrogen 18 mg/dl (9-20); Carbon Dioxide 32 mmol/L (22-30); Chloride 97 mmol/L (98-107); Estimated Creatinine Clearance > 125 ml/min; Glucose 294 mg/dl (70-99); Magnesium 1.6 mg/dl (1.6-2.3); Phosphorus 2.8 mg/dl (2.5-4.5); Potassium 3.6 mmol/L (3.5-5.1); Sodium 134 mmol/L (135-145); Total Bilirubin 0.6 mg/dl (0.2-1.3); Total Protein 4.6 g/dl (6.3-8.2); Triglycerides 72 mg/dl (10-149); eGFR > 60.00
--- NOTE | 2023-10-25 07:20 | W.PN.HOSP.TC ---
Today's Communication/Plan
-
resume hep gtt when appropriate as per surgery
transfer to IMU for closer monitoring higher level of care
cont TPN as per surgery
Lasix, heart rate rhythm control as per cardio
abx as per ID
Assessment / Plan
Assessment / Plan
Physical Exam
General: No Apparent Distress
HEENT: Normocephalic
Cardiac: Irregularly Irregular S1/S2
GI: Soft nontender ostomy present with biliary output
Genito-urinary: No Costovertebral Tender
Neuro: AO x 3
Psych: Calm
73M afib HTN DM here for septic shock ischemic bowel s/p bowel resection ostomy creation and downgrade from ICU.
Septic shock POA
- resolved; off all pressors
- s/p stress dose steroids
- weaned off IVF, on TPN as per surgery
- downgraded from ICU
Acute surgical abdomen with stercoral colitis with severe ischemic bowel
- s/p disimpaction in ER
- clinically unstable 10/14
- emergent OR 10/14: ex lap, subtotal colectomy for mesenteric ischemia, ischemic colon
- s/p OR 10/17: exploratory laparotomy, partial colectomy (sigmoid), creation end ileostomy
- empiric Ceftriaxone/Flagyl switched to zosyn and Doxycycline as per ID
- continue IV PPI
- diet: clears for comfort
- TPN per GS
Community acquired PNA, LLL
Vent dependent respiratory failure
- extubated 10/18
- currently on 2L; wean O2 as able
- empiric Ceftriaxone/Flagyl completed, on zosyn and Doxycycline as per ID
Persistent Elevating Leukocytosis despite extended course IV abx as above
-Repeat CT abd/pelvis appreciated noted ascites possible cirrhosis moderate to severe subcutaneous edema. Surgery eval appreciated, patient for OR today surgical exploration concern for ischemic stoma and bowel
-IR eval requested for diagnostic/therapeutic paracentesis however noted ascites too small as per IR review of imaging
-ID eval appreciated
-BNP elevated and ECHO
-empiric Lasix started for possible acute Heart Failure vs iatrogenic Fluid overload
JOSE from septic shock resolved
Acute metabolic acidosis
- monitor renal function
- monitor labs while on TPN
A. Fib with RVR
- likely driven by septic shock
- monitor rates; transitioned to PO Metoprolol 25mg q6h further transitioned to long acting 50 mg BID
- cont IV Heparin gtt
-Cardio eval appreciated
Hypernatremia resolved
Mild transaminitis
resolved
Hx of Essential HTN
- holding JORY/HCTZ
-started on Lasix as above
Type 2 DM
- holding Metformin
- completed critical care insulin protocol
- continue SSI
- Diabetes [employer] following
Hx of COPD
Former tobacco use disorder with [id number] history, quit about 15 years ago
Hypokalemia
Hypophosphatemia
- monitor and replete as necessary
Urinary retention
- continue Flomax
- Celaya catheter, eventual trial of void
DVT ppx: SCDs
Code: DNR
I spent a total of 50 minutes with the patient or on the floor. More than 50% of this time involved counseling and coordination of care.
Anticipated Discharge: > 48 hours
Subjective/Interval History
-
Date of Service: October 25, 2023
No acute distress. Appears comfortable at this time though frustrated with length of stay.
Objective Data
-
Labs:
Laboratory Results
10/25/23 10/25/23
05:27 12:30
WBC 20.9 H
Hgb 8.1 L D
Hct 23.9 L
Plt Count 286
APTT 119.1 H Pending
Sodium 134 L
Potassium 3.6
Chloride 97 L
Carbon Dioxide 32 H
BUN 18
Creatinine 0.5 L
Glucose 294 H
Calcium 8.0 L
Total Bilirubin 0.6
AST 26
ALT 16
Alkaline Phosphatase 58
Vital Signs:
Vital Signs
Temp Pulse Resp BP Pulse Ox
97.4 F 104 18 147/99 94
10/25/23 03:11 10/25/23 03:11 10/25/23 03:11 10/25/23 03:11 10/25/23 03:11
I&O
10/24/23 10/25/23 10/26/23
06:59 06:59 06:59
Intake Total 1880 / 1880 100 / 100
Output Total 2700 / 2700 3550 / 3550
Balance -820 / -820 -3450 / -3450
--- NOTE | 2023-10-25 07:56 | PN.DE.MGMTRT ---
Insulin Management
- -
10/25/2023: Diabetes Management Follow up:
Patient admitted 10/14 with lower abdominal abdominal pain, N&V. PMH: PAF, HTN, COPD, BPH, former tobacco smoker T2DM and allergic rhinitis. . CT A/P-->Stercoral colitis with severe constipation s/p disimpaction in the ER, s/p ex lap with subtotal
colectomy- due to severe ischemic bowel on 10/15/2023. Noted for Septic shock requiring multiple pressors, LLL Community acquired PNA and Vent dependent respiratory failure.
Prior to admission, pt was taking Metformin 500mg BID. Current A1C 6.2%.
Pt awake and alert, resting in bed, explained diabetes plan.
POD 8 segmented sigmoid resection, POD 10 subtotal colectomy.
Receiving TPN, glucose range 254 to 296. Will add Q6 hour novolog 5 units with low corrective insulin Q 6 hours . Will increase lantus to 14 units daily, to start tomorrow 10/25.
Patient to transfer to IMU.
Will follow for further needed adjustments.
Diabetes History
- -
Type of Diabetes: 2
Pre-Admission Diabetes Regimen
10/25/23
05:27
Creatinine 0.5 L
Lab Results
Hemoglobin A1c 6.2 % (4.0-5.6) H 10/16/23 03:28
Insulin Pump Settings
IP Diabetes Regimen
10/24/23 10/24/23 10/24/23
08:32 10:59 17:31
Glucose
POC Glucose 198 H 254 H 269 H
10/24/23 10/25/23 10/25/23
23:32 05:27 05:56
Glucose 294 H
POC Glucose 296 H 287 H
Patient Education
[2023-10-25] MEDS: DUONEB INH ×2 (08:05→14:44)
[2023-10-25] MEDS: LASIX 40 MG IV (08:24)
[2023-10-25] MEDS: PROTONIX IV 40 MG IV ×2 (08:25→20:13)
[2023-10-25] MEDS: NSS (PRESERVATIVE FREE) 10 ML IV ×2 (08:25→20:13)
[2023-10-25] MEDS: LANTUS 0.1 UNITS SC (08:26)
[2023-10-25] MEDS: FLAGYL 500 MG 100 IV (08:26)
[2023-10-25] MEDS: TOPROL XL 50 MG PO ×2 (08:26→20:12)
--- NOTE | 2023-10-25 08:35 | W.PN.UPDATE ---
Update Note
Progress Note Update
Discussed with IR, per IR assessment reported moderate size ascites on CT abd is actually small, challenging for diagnostic paracentesis.
In lieu of improving white count, consistently afebrile, will hold off on paracentesis for now.
--- NOTE | 2023-10-25 09:33 | CON.CAR ---
Addendum entered and electronically signed by Ziggy Simms MD 10/25/23 10:41:
I saw and examined the patient.
The TELEVISION REPAIR TEACHER or PA's note was reviewed and I agree with the note.
Comment: General: Well developed, well nourished in NAD.
Neck: Supple, no JVD, HJR, carotids +2 B/L, no bruits bilaterally.
Heart: Non displaced PMI, Irreg, no murmurs, No S3, S4, no rubs.
Lungs: Clear to auscultation bilaterally, no wheeze, rhonchi, rubs bilaterally,
normal expiratory phase.
Abdomen: Normal bowel sounds, soft, non-tender, non-distended.
Extremities: No clubbing, cyanosis or edema bilaterally.
Neuro: Grossly nonfocal, awake, alert and oriented x3.
Shilo has a history of permanent A-fib, diabetes, COPD. He was admitted with sepsis and stercoral colitis. He has received 17.5 L of IV fluids since admission. Cardiology is consulted for acute diastolic CHF. Also has A-fib with rapid ventricular
rate at present. He denies chest pain or shortness of breath
Will continue IV Lasix. Ejection fraction is normal on echocardiogram. He remains in A-fib with rapid ventricular response. Toprol has been restarted but may need to get IV Cardizem if heart rate remains rapid. Eliquis has been on hold and
heparin is on hold for possible OR. Eventually resume Eliquis when stable
Original Note:
Consultation
Consultation Request
Date/Time Consultation Requested: 10/25/23
Date/Time Consultation Performed: 10/25/23
Requesting Provider: Dr. Christy
Performing Provider: Dr. Simms
Reason for Consultation: Possible acute HF
Medical History
-
History of Present Illness:
Patient came to [facility] 10/15/23 with abdominal pain and constipation and was admitted with sepsis and stercoral colitis, cardiology is now consulted for acute HF. Patient came to ER with abdominal pain and constipation and appeared to be septic. He was
started on pressors and later taken to the OR same day for a damage control operation with subtotal colectomy. He returned to the OR 10/18/23 for wound closure and end ileostomy. Patient has received 17.25 liters of IVFs since admission. He is now
allowed sips of water and is receiving TPN. Cardiology is asked to see patient for possible acute HF. His weight is overall up 10 lbs from admission despite NPO and bowel surgery. He denies edema, bloating or SOB. His pro-BNP was 3680 yesterday and
he was started on Lasix 40 mg IV daily. Patient denies chest pain. He has permanent Afib and HRs are rapid, but he denies palpitations. He was not taking a rate controlling med prior to admission, but was started on Toprol XL 50 mg BID yesterday.
PMH:
Permanent Afib
DM 2
COPD
Past Medical History
Past Medical History: Other (in HPI)
Past Surgical History: Appendectomy and Bowel Resection (OR 10/15/23, OR 10/18/23)
Social History
Tobacco: Former Smoker
Alcohol: Occasional
Drug: None
Personal:
Living: With Family
Family History
Family History: CAD, Diabetes and Hypertension
Allergies / Home Medications
Allergy/AdvReac Type Severity Reaction Status Date / Time
Penicillins Allergy Unknown Verified 10/15/23 04:04
�Medication �Instructions �Recorded �Confirmed �Type
albuterol sulfate 90 mcg/actuation 2 puff inhalation Q6H PRN SOB 10/15/23 10/15/23 History
aerosol inhaler
apixaban 5 mg tablet (Eliquis) 5 mg PO BID Blood Clot 10/15/23 10/15/23 History
Prevention/Tx
doxycycline hyclate 100 mg tablet 100 mg PO BID Infection 10/15/23 10/15/23 History
lisinopril 20 1 tab PO DAILY Blood Pressure 10/15/23 10/15/23 History
mg-hydrochlorothiazide 25 mg tablet
metformin 500 mg tablet 500 mg PO BID Diabetes 10/15/23 10/15/23 History
tamsulosin 0.4 mg capsule 0.4 mg PO DAILY Urinary Issue 10/15/23 10/15/23 History
Review of Systems
-
History Source: Patient
All other systems: Negative unless noted
Physical Exam
Vital Signs
Temp Pulse Resp BP Pulse Ox
98.4 F 119 20 152/103 100
10/25/23 06:52 10/25/23 08:24 10/25/23 06:52 10/25/23 08:24 10/25/23 06:52
GEN: NAD. AAOx3
HEENT: EOMI, MMM, wearing glasses
LUNGS: Decreased BS at bases, but no wheeze or rales
CV: Irreg irreg, S1/S2, 1/6 syst LSB, Afib with RVR on tele
ABD: soft, BS+, NT, ND
EXT: No clubbing, cyanosis, lesions or edema B/L
NEURO: Gross non-focal
SKIN: Warm, dry and pink. No rash
Lab Results
10/25/23 05:27
Troponin I 0.018 ng/ml 10/15/23 04:18
Jad-H-Vltngiqjqti Pept 3680 pg/ml 10/24/23 05:42
Impression / Plan
-
PCP: Dr. Herrera
Cardiology: Dr. Simms, last seen 06/29/22
Impression:
Admitted with stercoral colitis and sepsis 10/15/23
s/p s/p ex lap with subtotal colectomy in a damage control operation 10/15/23
s/p segmental sigmoid resection, end ileostomy and abd wound closure 10/18/23
Permanent Afib with RVR
Acute HFpEF
LLL PNA
Leukocytosis
JOSE
Hypernatremia
Hypokalemia
Elevated LFTs
DM 2
COPD
Echo 10/25/23: EF 60-65%, trace MR, aortic sclerosis without stenosis
Plan:
-[facility] with abdominal pain and constipation and was admitted with sepsis and stercoral colitis, cardiology is now consulted for acute HF. Patient came to ER with abdominal pain and constipation and appeared to be septic. He
was started on pressors and later taken to the OR same day for a damage control operation with subtotal colectomy. He returned to the OR 10/18/23 for wound closure and end ileostomy. Patient has received 17.25 liters of IVFs since admission. He is
now allowed sips of water and is receiving TPN. Cardiology is asked to see patient for possible acute HF. His weight is overall up 10 lbs from admission despite NPO and bowel surgery. He denies edema, bloating or SOB. His pro-BNP was 3680 yesterday
and he was started on Lasix 40 mg IV daily. Patient denies chest pain. He has permanent Afib and HRs are rapid, but he denies palpitations. He was not taking a rate controlling med prior to admission, but was started on Toprol XL 50 mg BID
yesterday.
-Weight is up despite being NPO and having bowel surgery. He has received IVFs and is now on TPN. pro-BNP is up to 3680 and suspect he has acute HFpEF. Agree with Lasix 40 mg IV daily. Patient was not taking a loop diuretic prior to admission.
-EF stable by echo.
-Patient with no h/o CHF.
-Afib is permanent and previously rate controlled without meds prior to admission, but now rapid likely as a response to illness. Agree with initiation of Toprol XL 50 mg BID 10/24/23 PM. If HRs continue to be high he might need Cardizem gtt.
-Eliquis has been on hold since admission. Heparin gtt without bolus running from 10/22/23 until 10/25/23. Heparin gtt now on hold as of 10/25/23 for possible return to OR 10/25/23. Patient was not aware of the prospect of additional procedure.
[2023-10-25 09:36] LABS: Hematocrit 25.4 % (39.0-52.0); Hemoglobin 8.5 g/dL (13.0-18.0)
[2023-10-25 09:38] LABS: INR 1.28
--- NOTE | 2023-10-25 09:47 | W.PN.UPDATE ---
Update Note
Progress Note Update
Patient warrants higher level care medical complexity ischemic bowel s/p bowel resection ostomy creation due to return to OR for further surgical exploration concern for more ' gut' as per surgery. Requiring TPN nutrition, persistent Afib
requiring hep gtt (holding for OR). Concern for Heart Failure and possible new onset cirrhosis started on Lasix. Transfer request placed for IMU.
--- NOTE | 2023-10-25 10:07 | W.PN.PUL3 ---
Today's Communication / Plan
-
Continue Abx
Continue nebulizers
Secretion clearance intervention
Aspiration precautions
Increase mobility as able; PT/OT recommend acute rehab upon discharge
Trend leukocytosis and fever curve.
Low threshold to broaden spectrum antibiotics if patient develop fevers. May need to repeat cultures.
Going back to OR today given concern for bowel ischemia as stoma appeared dusky - heparin gtt on hold; NPO
Repeat CXR in 4 to 6 weeks to follow pneumonia resolution
Assessment
-
Assessment: 73-year-old male former tobacco smoker with past medical history of A-fib on Eliquis, hypertension, DM type II, BPH, history of COPD and allergic rhinitis who presents with lower abdominal pain, nausea/vomiting. Symptoms started last
night and he reports constipation for few days. Last BM about 3 days ago. Initial vitals in the ER showed he was in rapid A-fib with VR of 139 bpm, afebrile to 98.4 �F, breathing at 27 breaths minute, hypotensive to 76/59, and SpO2 93% on room
air. EKG confirmed A-fib with RVR. Labs showed leukocytosis to 20.4, creatinine 1.5, lactate 7.4, and T. bili 1.7. Blood culture collected. CT abdomen/pelvis showed fecal impaction without evidence for bowel obstruction. CXR showed retrocardiac
opacification concerning for left lower lobe pneumonia. He was given aztreonam/Flagyl in the ER, fentanyl, morphine, total of 3 L NS 0.9% and Zofran. He was admitted to the ICU for close monitoring with critical care services consulted for
additional management/recommendations.
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
-
Pulmonary call back on 10/22/2023 for yeast on the sputum culture from endotracheal aspiration.
Impression:
Yeast on sputum culture
CAP involving LLL
Bilateral pleural effusions
Persistent leukocytosis
Hyperglycemia
-
#Stercoral colitis with severe constipation s/p disimpaction in the ER
Status post expiratory laparotomy/subtotal colectomy-diagnosis bowel ischemia. 10/15/2023
#Abdominal pain due to above
#Septic shock due to above in the setting of left lower lobe CAP - shock state resolved
#Lactic acidosis
#CAP involving left lower lobe
#Acute respiratory failure with hypoxia-requiring intubation mechanical ventilation.
Intubated 10/15/2023, extubated 10/19
#JOSE - resolved
#A-fib with RVR - now rate controlled
#Elevated INR
#Transaminitis with elevated T. bili + elevated ALP - now normalized
#Abnormal urinalysis with +1 leukocyte esterase
#Hypertension
#Reported history of COPD
#Former tobacco use disorder with [id number] history, quit about 15 years ago
Plan:
-
From the respiratory perspective overall he has improved since being out of ICU. His oxygen supplementation has decreased to 2-3 L nasal cannula.
Extubated 10/20/2023
Remains afebrile
Noted persistent leukocytosis.
Intermittently coughing some phlegm but not excessive. No hemoptysis.
Does not appear toxic
-
Left lower infiltrate could be atelectasis-doubt new pneumonia or worsening pneumonia. 10/22/2019
Less likely Leni as a pathogen at this point. I recommend against starting antifungals at this point. Will need close observation.
-
Currently on IV Flagyl (since 10/14), s/p ceftriaxone (10/17 - 10/22) + s/p cefepime (10/14 - 10/17) and lastly s/p micafungin (10/14 - 10/15) If there is suspicion of worsening infection then broaden the spectrum of antibiotic to Zosyn.
Continue secretion clearance interventions.
Encourage incentive spirometry
Continue Acapella device
DuoNebs TID
If worsening infiltrate may need to consider broadening spectrum antibiotics. Clinically not behaving like he has worsening pneumonia.
Diurese as tolerated given pleural effusions and moderate to severe subcutaneous edema with ascites seen on imaging from today (10/24/2023)
-
History of COPD: Not bronchospastic. Continue nebulized bronchodilators
-
Status post exploratory laparotomy, subtotal colectomy on 10/15/2023.
Bowel ischemia involving transverse and descending colon: Noted
Status post colon partial colectomy sigmoid and creation of end ileostomy. 10/18/2023
- Continue with broad-spectrum antibiotics to cover intra-abdominal source as well as pneumonia.
- Currently on Flagyl-from the pulmonary perspective - Antibiotics will be extended for intra-abdominal indication per surgery.
discontinued micafungin 10/17/2019.
Currently on TPN; NPO for OR today; defer diet to surgery
-
Atrial fibrillation
Rate controlled with goal HR<110
Replete K>4, Mg>2
Continue heparin drip.
-
DVT ppx:heparin drip - currently on hold while awaiting to go back to OR today
Diet per surgery; currently on TPN
PPI for GI prophylaxis
-
Significantly deconditioned continue physical therapy Occupational Therapy - rec'd acute rehab on discharge
-
DNR status noted
-
Pulmonary will continue to follow for left lower lobe infiltrate mild hypoxemia.

Data:
CT abdomen/pelvis with IV contrast 10/15/2023:
Findings concerning for fecal impaction.
Large amount of fecal material throughout the colon.
Bilateral too small to characterize hypodense renal lesions likely benign cysts.
Severe atherosclerotic vascular disease.
Solid noncalcified left lower lobe pulmonary nodule. Continued surveillance recommended.
CT ABD/pelvis with IV contrast 10/24/2023:
Status post subtotal colectomy.
Moderate ascites is present in all 4 quadrants, new since prior examination of October 15, 2023. There is no evidence of a focal collection to suggest an abscess.
Bilateral pleural effusions, left slightly greater than right. Adjacent compressive atelectasis within the posterior lower lungs.
Liver contour appears subtly nodular, suggestive of cirrhosis. No evidence of a focal hepatic mass lesion.
The rectum is distended with stool, transverse dimension of 7.9 cm. There is mild perirectal and presacral edema with no significant rectal wall thickening identified.
Moderate to severe subcutaneous edema.
CXR 10/15/2023: Findings suggesting mild left lower lobe pneumonia.
Total time spent today was 50 minutes for this encounter. Time includes reviewing laboratory test/imaging results, reviewing pertinent medical records, obtaining and reviewing medical history, performing an appropriate exam, ordering medications,
tests and procedures. Time also includes documentation of this encounter, coordinating patient care and communicating with other healthcare professionals. Total time does not include separately billed tests performed on this date of service.
Subjective Data
-
Date of Service:
Date of Service: October 25, 2023
Chief Complaint: Pulmonary Follow Up (Pneumonia)
Subjective:
Patient seen and evaluated today at bedside. Transferred to IMU this AM for close monitoring given concern for stoma necrosis. Going back to the OR today for ex lap with small bowel resection. This morning he was on 2 L/min nasal cannula.
Remains on TPN. Denies ALBERTO, chest pain, fevers or chills.
Review of Systems
General: Other (Negative unless mentioned above)
Objective Data
Data Reviewed
Vital Signs / I&O / Oxygen:
Vital Signs
Temp Pulse Resp BP Pulse Ox
98.4 F 119 20 152/103 100
10/25/23 06:52 10/25/23 08:24 10/25/23 06:52 10/25/23 08:24 10/25/23 06:52
Intake and Output
10/24/23 10/25/23 10/26/23
06:59 06:59 06:59
Intake Total 1880 / 1880 100 / 100
Output Total 2700 / 2700 3550 / 3550
Balance -820 / -820 -3450 / -3450
SaO2 [CPAP] 95
SaO2 [A/C] 98
SaO2 100
Nasal Cannula flow liters per 2
minute
Physical Exam
General: Respiratory Distress (negative), Comfortable, Chills (negative) and Sweats (negative)
HEENT: Normocephalic and Anicteric
Cardiovascular: S1-S2 and Peripheral Edema (+1 lower extremity edema bilaterally)
Respiratory: Wheeze (n), Crackles (Left base), Rhonchi (negative) and Non-Labored Respirations
GI: Soft, Non Distended, Non Tender, Other (Hypoactive bowel sounds) and Other (Ileostomy with dark stool seen in ostomy bag; briceno appearing stoma)
Neurology: AO x 3 and Tremors (negative)
Skin: Warm, Dry and Jaundice (negative)
Labs/Micro/Reports
Lab Data
10/25/23 09:17
10/25/23 05:27
Laboratory Results
10/25/23 10/25/23
05:27 12:30
PT 16.0 H
INR 1.28
APTT 119.1 H Cancelled
[2023-10-25] MEDS: DESENEX/MITRAZOL/ZEASORB 1 APPLIC TOPICAL ×2 (10:16→20:12)
--- NOTE | 2023-10-25 10:21 | W.PN.GI.CBS2 ---
Addendum entered and electronically signed by Mykel Pollard MD 10/25/23 19:07:
I saw and examined the patient.
The PA's note was reviewed and I agree with the note.
Comment:
73 year old male who is post op after subtotal colectomy, returned to OR 10/17 for segmental sigmoid resection, end ileostomy and abdominal wound closure. GI being consulted for moderate ascites new since 10/14 and nodularity of liver seen on CT
suggesting possible cirrhosis. Patient denies h/o cirrhosis or known liver disease.
Recommend OP evaluation after he recovers from operative care. GI will s/o.
Original Note:
Today's Communication / Plan
-
asked to see for possible cirrhosis and new ascites
pt also noted with concern for necrotic stoma-- plan for OR today
possible ascites from bowel issues vs underlying cirrhosis with decompensation, CHF with decompensation related vs other
Dr. Christy reviewed with IR today -- challenging for paracentesis so held for today-- monitor for ability to complete to calculate SAAG to assist for etiology
cont management of ischemic bowel per surgery
cont to trend platelets, INR(currently Eliquis on hold and on heparin gtt), LFT's
add hepatitis panel
OP follow up for cirrhosis work up after improved
NPO- TPN per surgical team
Assessment / Plan
-
Pt is a 73 yo who presented to ER with abdominal pain on 10/15/23. He had constipation for last 3 days and started to have nausea and vomiting. He was admitted to hospital and he was taken to the OR emergently on 10/15/23 as due his clinical
deterioration with PNA and increased abdominal pain and had an exploratory�laporotomy with subtotal colectomy. Pt returned to OR 10/17 for segmental sigmoid resection, end ileostomy and abdominal wound closure. Pt noted with persistent
leukocytosis and also noted on follow up CT with moderate ascites new since 10/14 and also noted liver contour with subtly nodularity suggesting cirrhosis no liver mass, rectum disended with stool with perirectal and presacral edema without wall
thickening identified. Moderate to severe SQ edema. Per patient no hx cirrhosis in past or known liver disease. Since admission normal platelets, variable INR with Eliquis use, and initial normal albumin then drop after admission. LFT normal with
miniaml AST increase on admission.
s/p s/p ex lap with subtotal colectomy in a damage control operation 10/15/23
s/p segmental sigmoid resection, end ileostomy and abd wound closure 10/18/[address] concern for cirrhosis
Permanent Afib with RVR
Acute HFpEF
LLL PNA
Leukocytosis
JOSE
Hypernatremia
Hypokalemia
Elevated LFTs
DM 2
COPD
PLAN:
asked to see for possible cirrhosis and new ascites
pt also noted with concern for necrotic stoma-- plan for OR today
possible ascites from bowel issues vs underlying cirrhosis with decompensation, CHF with decompensation related vs other
Dr. Christy reviewed with IR today -- challenging for paracentesis so held for today-- monitor for ability to complete to calculate SAAG to assist for etiology
cont management of ischemic bowel per surgery
cont to trend platelets, INR(currently Eliquis on hold and on heparin gtt), LFT's
add hepatitis panel
OP follow up for cirrhosis work up after improved
NPO- TPN per surgical team
Subjective
Subjective
Date of Service: October 25, 2023
asked to reassess for ascites, 10/24 brown stool NPO , mild abdominal pain
Objective
Data Reviewed
Laboratory Data:
Laboratory Results
10/25/23 09:17
10/25/23 05:27
Laboratory Results
PT 16.0 Sec (11.4-14.6) H 10/25/23 05:27
INR 1.28 10/25/23 05:27
APTT Cancelled 10/25/23 12:30
Phosphorus 2.8 mg/dl (2.5-4.5) 10/25/23 05:27
Magnesium 1.6 mg/dl (1.6-2.3) 10/25/23 05:27
Total Bilirubin 0.6 mg/dl (0.2-1.3) 10/25/23 05:27
AST 26 U/L (17-59) 10/25/23 05:27
ALT 16 U/L (0-50) 10/25/23 05:27
Alkaline Phosphatase 58 U/L (38-126) 10/25/23 05:27
Lipase 136 U/L (23-300) 10/15/23 04:18
Vital Signs and I&O:
Vital Signs
Temp Pulse Resp BP Pulse Ox
98.4 F 119 20 152/103 100
10/25/23 06:52 10/25/23 08:24 10/25/23 06:52 10/25/23 08:24 10/25/23 06:52
I&O
10/24/23 10/25/23 10/26/23
06:59 06:59 06:59
Intake Total 1880 / 1880 100 / 100
Output Total 2700 / 2700 3550 / 3550
Balance -820 / -820 -3450 / -3450
Physical Exam
Physical Exam
HEENT: Anicteric and Moist mucous membranes
Cardiology: Other (tachy)
Pulmonary: Clear
GI: Soft, Distended, Tender (mild ) and Other (ostomy with brown stool)
Neuro: Other (sleepy but arousable )
--- NOTE | 2023-10-25 10:29 | W.CHA2DS2VAS ---
[id number] Score
Score
Age in Years (65=0, 65-74=1, >/=75=2): 65-74
Sex (Female=+1): Male
Congestive Heart Failure History (Yes=+1): Yes
Hypertension History (Yes=+1): No
Stroke/TIA/Thromboembolism History (Yes=+2): No
Vascular Disease History (Yes=+1): No
Diabetes Mellitus (Yes=+1): Yes
Score >/=2 is otherwise an anticoagulation candidate: 3
--- NOTE | 2023-10-25 10:52 | W.PN.UPDATE ---
Update Note
Progress Note Update
Clinically well, stoma appears necrotic today. Plan for RTOR for re-ex-lap, washout, stoma revision, possible bowel resection. Hep gtt stopped at 8:45am.
--- NOTE | 2023-10-25 11:15 | WOUNDNOTE ---
IVON RN NOTE: Patient transferred to IMU, reviewed Dr. Richardson's note, will be going back to OR today for stoma revision. Ostomy nurse will follow patient post op and do appliance change/teaching when stable.
--- NOTE | 2023-10-25 11:32 | PTCARENOTE ---
Addendum entered by Shreya Izaguirre 10/25/23 12:32:
Report to [facility]. 12:00 Rocephin tubed to OR per RN request. Pt to OR via bed with at bedside.
Original Note:
Pt received from 4th floor via stretcher. Transferred to IMU bed. TPN infusing via R Picc. Pt denies pain at this time. Stoma dark/dusky in color. Afib on tele monitor. CHG bath and linens changed in preparation for OR. at bedside. Call zamora
within reach; able to make needs known.
--- NOTE | 2023-10-25 12:15 | CM ---
stoma appears necrotic today,for re expl lap/washout/possible bowel resection,hep gtt stopped this am.tx to icu.Plan:[facility] following for acute rehab
[2023-10-25 12:47] LABS: Glucose - Point of Care 365 mg/dl (70-99)
[2023-10-25] MEDS: NOVOLOG FLEXPEN-LOW RESISTANCE SC (13:25)
[2023-10-25] MEDS: NOVOLOG FLEXPEN SC (13:25)
[2023-10-25 13:34] LABS: Glucose - Point of Care 305 mg/dl (70-99)
--- NOTE | 2023-10-25 13:57 | CON.ID ---
Addendum entered and electronically signed by Alanis Epstein MD 10/25/23 15:41:
heard from pharmacy
patient filled doxycycline 10/05/23 for lyme arthritis planned for a 3 week course (today would be final day), will assess joints in the AM
Original Note:
Consultation
-
Date/Time Consultation Requested: 10/24/23 18:04
Date/Time Consultation Performed: 10/25/23 13:58
Requesting Provider: Dr Christy
Performing Provider: Dr Epstein
Reason for Consultation: persistent leukocytosis unclear etiology pending parancentesis
Chief Complaint / Past History
Chief Complaint
Abd Pain / Constipation
History of Present Illness
Mr Younger is a 73 year old male with history of COPD, remote appendectomy, Dm2 hwo presented to the ER on 10/14 for abdominal pain and constipation for 3-4 days. Reported intermittent constipation x1 month intermittently relieved with OTC senna,
BMs of normal claiber. Then on 10/14 he had abrupt onset of lower abdominal pain, distension, nausea and vomiting which persisted through the night. EMS called and he was brought here.
Of note with recent diagnosis of lyme arthritis on doxycycline [employer].
On arrival here he was afebrile, he was found to be hypotensive and started on IVF, HR 110s was in afib with RVR, wbc initially 20.4, hgb 15.9, plt 280, L shift is noted, eos were not present on arrival, INR initially 2.5, lactic acid 7.4, cr 1.5
from baseline of 0.8, ua no pyuria, single blood culture sent from the ER (now finalized neg), CT a/p with IV contrast only with impaction but no perforation. fecal disimpaction preformed in the ER without improvement of symptoms. Staff noted in
the ER flatus but no stools despite enemas. Patient with progressive abdominal pain, increasing pressor requirements and surgical services coordinator called surgery to the bedside emergently. Same day 10/14 he was intubated and taken to the OR for ex lap and
subtotal colectomy (two pieces), the bowel was extremely dilated but the procedure was uncomplicated. The abdomen had 'minimal contamination' at the end of the procedure. The procedure ended in discontinuity with open abdomen and abthera wound vac
for ischemic colon and peritonitis. He was initially given aztreonam then swtiched to cefepime/metrondiazole; micafungin was started for the first two days and then stopped, cefepime/metro continued 3 days until 10/17 when patient switched to
ceftriaxone/metronidazole. Patient was also diagnosed with CAP 10/14 with bibasilar opacities. Resp cultures were not obtained, aspiration pneumonia was considered most likely diagnosis. Stress dose steroids initially planned but random cortisol
>123 and stopped. Pressors were weaned over days, Taken back to the OR on 10/17 Exploratory laparotomy, partial colectomy (sigmoid), creation end ileostomy. Findings included patchy necrosis of sigmoid stump, resected back. The abdomen was
irrigated and the effluent ran clear. 10/18 pressors were weaned off, patient remained afebrile, patient extubated wbc was 11.1. sputum culture with yeast only. 10/20 increasing leukocysotsis noted with wbc increased to 16.6, surgery noted rosalva
and requested CXR done the next AM showing 'large left lower airspace consolidation' (I would call this a small consolidation at best), sputum 10/23 CXR 'Interval improvement in parenchymal opacity involving the left mid to lower lung, suggesting
interval improvement in left lower lobe pneumonia and/or atelectasis.' 10/23 ct a/p with IV contrast only: moderate ascites, suggestion of possible cirrhosis, rectum distended, bilateral pleural effuions L >right with compressive atelectasis.
Patient remains on ceftriaxone and metronidazole. 10/24 today: patient remains afebrile, bp stable, wbc peaked 10/23 at 26 today 20.9, hgb 8.1, plt 286, L shift is noted, eos were present, na 134, cr 0.5, lactic acid 1.3, t bili 0.6, ast 26, alt 16, alk
phos 58, glucoses have been running high Paracentesis considered however patient found to have necrotic stoma and returned to the OR, found to have stoma with necrotic mucosa, 2L of old blood in the belly without active bleeding, small bowel healthy
with 2-3 cm compromised reconstructed, remains on ceftriaxone and metronidazole. ID was consulted for assistance with persistent leukocytosisi
Past History
Additional Past Medical History:
Arrhythmias (afib), COPD, HTN, NIDDM and Other (bph, PAD), lyme arthritis
Past Surgical History: Appendectomy
Allergy History:
Penicillins Allergy (Verified 10/15/23 04:04)
Unknown
Medications Reviewed: Yes
Social History
Tobacco: Former Smoker
Alcohol: Occasional
Drug: None
Family History
Family History: Not Pertinent
Review of Systems
Review of Systems
General: Negative Fever or Chills
ROS deferred due to condition of the patient - patient in PACU and disoriented
Vital Signs
Temp Pulse Resp BP Pulse Ox
98.7 F 106 27 109/73 95
10/25/23 11:28 10/25/23 12:30 10/25/23 12:30 10/25/23 12:08 10/25/23 12:30
Physical Exam
Physical Exam
Constitutional: No Acute Distress
Cardiovascular: Regular Rate and S1/S2; Negative Murmur or Rub
Pulmonary: Clear and Symmetric; Negative Wheezes, Rales or Rhonchi
Gastrointestinal: Soft, Non Tender, Non Distended and Normal Bowel Sounds
Skin: Warm and Dry; Negative Rash or Jaundice
Wound: Other (mild strikethrough on the dressing; stoma pink, bloody output)
Neurological: Awake
Lines: PIV and PICC (no erythema, warmth, tenderness or drainage)
Lab / Diagnostic Study Results
10/25/23 09:17
10/25/23 05:27
Abs Immat Gran (auto) 0.5 10^3/uL (0-0.05) H 10/25/23 05:27
Absolute Neuts (auto) 17.8 10^3/uL (1.4-6.5) H 10/25/23 05:27
Absolute Lymphs (auto) 1.0 10^3/uL (1.2-3.4) L 10/25/23 05:27
Absolute Monos (auto) 1.5 10^3/uL (0.1-0.6) H 10/25/23 05:27
Absolute Basos (auto) 0.0 10^3/uL (0-0.2) 10/25/23 05:27
Total Counted 100 10/15/23 16:54
Immature Gran % 2.1 % (0-0.5) H 10/25/23 05:27
Neutrophils % 84.8 % (42.2-75.2) H 10/25/23 05:27
Lymphocytes % 5.0 % (20.5-51.1) L 10/25/23 05:27
Monocytes % 7.2 % (1.7-9.3) 10/25/23 05:27
Eosinophils % 0.7 % (0-6) 10/25/23 05:27
Basophils % 0.2 % (0-2) 10/25/23 05:27
Abs Neuts (Manual) 5.9 10^3/uL (1.4-6.5) 10/15/23 16:54
Segmented Neutrophils 33 % (42-75) L 10/15/23 16:54
Band Neutrophils 39 % (0-3) H 10/15/23 16:54
Lymphocytes (Manual) 9 % (20-51) L 10/15/23 16:54
PT 16.0 Sec (11.4-14.6) H 10/25/23 05:27
INR 1.28 10/25/23 05:27
Lactic Acid 1.3 mmol/L (0.7-2.0) 10/25/23 05:27
Microbiology Results
Micro:
10/19/23 13:41 Respiratory Culture - Final
Endotracheal Yeast
Gram Stain - Final
10/15/23 05:43 Blood Culture - Final
Blood/Venous No Growth - Final Report
10/15/23 09:57 Urine Culture - Final
Urine NO GROWTH
Assessment / Plan
Leukocyotsis - persistent
s/p ex lap with subtotal colectomy for ischemic colitis - left in discontinuity 10/15/23
s/p segmental sigmoid resection, end ileostomy and abd wound closure 10/18/23
s/p Exploratory laparotomy, small bowel resection, creation end ileostomy 10/25/23
recent diagnosis of lyme arthririts - unclear date of starting antibiotics
reported penicillin allergy unknown
- 2L of old blood in the abdomen, without purulence, cultures were not sent, blood is a good media for growing bacteria
- CT a/p with question of cirrhosis but OR findings with old blood rather than ascites and no comment on the liver; also note CT most consistent with atelectasis bilaterally rather than pneumonia
- start zosyn; stop ceftriaxone/metronidazole; coverage for enterococcus, resistant GNR and continues anaerobic coverage
- 90% of patient reporting penicillin allergy are found not to be allergic on challenge; history of unknown allergy is a considered low risk for challenge
- duration pending course
- unclear when doxycycline was started for lyme arthritis, seeing if pharmacy records can be obtained, for now, restart doxycycline, prior ceftriaxone was also excellent coverage
- follow cbc daily, follow clinically
[2023-10-25 14:04] LABS: Glucose - Point of Care 290 mg/dl (70-99)
--- NOTE | 2023-10-25 14:49 | W.IMMPOSTOP ---
Addendum entered and electronically signed by Jeffrey Richardson MD 10/25/23 15:11:
updated by phone
OK to restart heparin gtt without bolus tomorrow.
Original Note:
Surgical Immed Post Op Note
-
Primary Surgeon: Debra
Assisting: Elsi CHÁVEZ
Pre-op Diagnosis: Ischemic stoma
Post-op Diagnosis: Same
Procedure Performed: Exploratory laparotomy, small bowel resection, creation end ileostomy
Anesthesia Type: GETA
Specimen / Cultures: Terminal ileum
Estimated Blood Loss: 10cc
Complications: None immediate
Operative Findings: Stoma with necrotic mucosa, 2 liters of old blood in the belly without any sign of active bleeding, sigmoid stump healthy, small bowel healthy with exception of 2-3cm compromised mucosa at the level of the stoma. Circumferential
bleeding noted at the cut edge of the bowel during reconstruction, pink mucosa noted at the level of the stoma intra-op
--- NOTE | 2023-10-25 14:56 | OR.RPT ---
Operative Report
Operative Report
Primary Surgeon: Debra
Assisting: Elsi CHÁVEZ
Pre-op Diagnosis: Ischemic stoma
Post-op Diagnosis: Same
Procedure Performed: Exploratory laparotomy, small bowel resection, creation end ileostomy
Anesthesia Type: GETA
Specimen / Cultures: Terminal ileum
Estimated Blood Loss: 10cc
Complications: None immediate
Operative Findings: Stoma with necrotic mucosa, 2 liters of old blood in the belly without any sign of active bleeding, sigmoid stump healthy, small bowel healthy with exception of 2-3cm compromised mucosa at the level of the stoma. Circumferential
bleeding noted at the cut edge of the bowel during reconstruction, pink mucosa noted at the level of the stoma intra-op
Date of Surgery: 10/25/23
Indications: 73M with ischemic stoma. Plan for exploratory laparotomy, bowel resection, creation of end ileostomy.
Description of procedure: The patient was placed on the operating table in the supine position. General anesthesia was induced. A time-out was completed verifying correct patient, procedure, site, positioning, and special equipment prior to
beginning this procedure. The stoma was whip stitched closed. The abdomen was prepped and draped in the usual sterile fashion. The stoma was liberated from the skin by cutting the sutures and using gentle blunt dissection. The old midline incision
was opened bluntly and the abdomen entered. 2 liters of old dark blood was encountered, suctioned and irrigated. The abdomen was packed with moist lap pads. The lap pads were sequentially removed and no bleeding was identified. The sigmoid stump was
inspected and appeared healthy. The small bowel was inspected from ligament of treitz to the stoma and all appeared viable except for the final few centimeters. The most distal few centimeters of the terminal ileum were resected with a BARRETT 60mm
purple load stapler. A voyant device was used to resect the mesentery back 3cm to create a length of bowel for the stoma. The end of the bowel was observed for several minutes and appeared perfused and responded with peristalsis to a finger flick.
The ileum was then gently passed through the abdominal wall defect and gently scured with a lit. The abdomen was irrigated with warm saline and the midline incision was closed with #1 PDS staratfix. Skin was closed with jabari. The stoma was
matured with 2-0 vicryl sutures. When the staple line was cut sharply from the bowel, bleeding was visible in the cut edge of the bowel wall circumferentially. An aquacel dressing and an appliance were placed. The stoma mucosa appeared pink.
The patient tolerated the procedure well and was taken to the postanesthesia care unit in stable condition.
The assistance of Elsi CHÁVEZ was required due to the complexity of the procedure. During the procedure he assisted with retraction, resection, and closure of the wound.
[2023-10-25 15:14] LABS: Glucose - Point of Care 261 mg/dl (70-99)
[2023-10-25] MEDS: NOVOLOG vial 4 UNITS SC (15:51)
--- NOTE | 2023-10-25 16:18 | SUR.PHASEI ---
Patient post revision of ileostomy, stoma red on arrival to PACU and on Discharge to IMU. bedside and phone report to Shreya. Dressing and stoma checked at bedside on arrival to IMU. Patient alert and comfortable. Sabine Leos RN BSN.
[2023-10-25] MEDS: ZOSYN 100 IV ×2 (16:21→22:48)
[2023-10-25] MEDS: DILAUDID 0.5 MG IV (17:10)
[2023-10-25] MEDS: FLOMAX 0.4 MG PO (17:10)
--- NOTE | 2023-10-25 17:21 | PTCARENOTE ---
Pt returned from OR. Midline aquacell with 2 small marked areas of drainage. Sating mid to high 90's on 4L NC. Medicated for abdominal pain with PRN Dilaudid- see APR. Pt sleeping intermittently, son at bedside.
--- NOTE | 2023-10-25 17:22 | PTCARENOTE ---
Stoma red and budded, appliance intact.
[2023-10-25] MEDS: NOVOLOG FLEXPEN 5 UNITS SC ×2 (18:21→23:14)
[2023-10-25] MEDS: NOVOLOG FLEXPEN-LOW RESISTANCE 4 UNITS SC ×2 (18:21→23:13)
[2023-10-25 18:31] LABS: Glucose - Point of Care 345 mg/dl (70-99)
[2023-10-25] MEDS: VIBRAMYCIN 100 MG PO (20:12)
[2023-10-25] MEDS: DUONEB 3 ML INH (20:13)
[2023-10-25 22:44] LABS: Glucose - Point of Care 345 mg/dl (70-99)
[2023-10-25] MEDS: Parenteral Nutrition, Central 1500 IV (22:45)
[2023-10-26] VITALS (24 sets, daily range): BP systolic 86–140; BP diastolic 66–96; PULSE 97; O2SAT 98; BMI 29.1
[2023-10-26] MEDS: ZOSYN 100 IV ×4 (03:39→21:22)
[2023-10-26] MEDS: NOVOLOG FLEXPEN-LOW RESISTANCE 5 UNITS SC (05:59)
[2023-10-26] MEDS: NOVOLOG FLEXPEN 5 UNITS SC ×2 (06:00→17:25)
[2023-10-26 06:09] LABS: Glucose - Point of Care 371 mg/dl (70-99)
--- NOTE | 2023-10-26 06:28 | PTCARENOTE ---
Patient able to sleep on/off. Right DL PICC dressing intact. TPN infusing. swallowed pills whole w/o issues. Tolerating Abx. Blood glucose continues to be elevated. Encouraged deep breathing, non prod cough present. Tele showing Afib. Celaya draining
clear yellow urine at bedside. Abd midline dressing with shadowing present, area marked. Ostomy with small amount of brown liquid output. generalized anasarca, encouraged to reposition self frequently while in bed. SCDs on.
Pt visibly tearful this morning, asking when he will get to go home; support provided.
call zamora within reach, pt calls appropriately.
[2023-10-26 06:40] LABS: % Basophils 0.2 % (0-2); % Lymphocytes 2.9 % (20.5-51.1); % Monocytes 6.5 % (1.7-9.3); % Neutrophils 89.4 % (42.2-75.2); Absolute Immature Granulocytes 0.2 10^3/uL (0-0.05); Absolute Lymphocytes 0.6 10^3/uL (1.2-3.4); Absolute Monocytes 1.4 10^3/uL (0.1-0.6); Absolute Neutrophils 19.9 10^3/uL (1.4-6.5); Hematocrit 21.2 % (39.0-52.0); Hemoglobin 7.2 g/dL (13.0-18.0); Mean Corpuscular Hgb 31.3 pg (27.0-31.0); Mean Corpuscular Volume 92.2 fL (80.0-94.0); Mean Platelet Volume 9.5 fL (7.4-10.4); Nucleated Red Blood Cells % 0 % (-); Platelet Count 374 10^3/uL (130-400); Red Cell Dist. Width 14.2 % (11.5-14.5); White Blood Cell Count 22.3 10^3/uL (4.8-10.8)
[2023-10-26 06:49] LABS: ALT (SGPT) 15 U/L (0-50); AST (SGOT) 23 U/L (17-59); Albumin 2.2 g/dl (3.5-5.0); Alkaline Phosphatase 55 U/L (38-126); Blood Urea Nitrogen 24 mg/dl (9-20); Carbon Dioxide 31 mmol/L (22-30); Chloride 98 mmol/L (98-107); Direct Bilirubin 0.2 mg/dl (0.0-0.4); Estimated Creatinine Clearance > 125 ml/min; Glucose 352 mg/dl (70-99); Magnesium 1.9 mg/dl (1.6-2.3); Phosphorus 3.1 mg/dl (2.5-4.5); Potassium 4.3 mmol/L (3.5-5.1); Sodium 137 mmol/L (135-145); Total Bilirubin 0.5 mg/dl (0.2-1.3); Total Protein 4.5 g/dl (6.3-8.2); eGFR > 60.00
[2023-10-26 07:15] LABS: PT 15.3 Sec (11.4-14.6)
[2023-10-26] MEDS: DUONEB 3 ML INH ×2 (07:17→13:43)
[2023-10-26] MEDS: ZOFRAN 4 MG IV (07:38)
--- NOTE | 2023-10-26 07:52 | W.PN.HOSP.TC ---
Today's Communication/Plan
-
PRBC transfusion with Lasix
strict NPO as per surgery
abx as per ID
Nebulizers as per Pulm
Assessment / Plan
Assessment / Plan
Physical Exam
General: No Apparent Distress
HEENT: Normocephalic
Cardiac: Irregularly Irregular S1/S2
GI: Soft nontender ostomy present with biliary output
Genito-urinary: No Costovertebral Tender
Neuro: AO x 3
Psych: Calm
73M afib HTN DM here for septic shock ischemic bowel s/p bowel resection ostomy creation and downgrade from ICU.
Septic shock POA
- resolved; off all pressors
- s/p stress dose steroids
- weaned off IVF, on TPN as per surgery
- downgraded from ICU to F later upgraded back to IMU as below
Acute surgical abdomen with stercoral colitis with severe ischemic bowel
- s/p disimpaction in ER
- clinically unstable 10/14
- emergent OR 10/14: ex lap, subtotal colectomy for mesenteric ischemia, ischemic colon
- s/p OR 10/17: exploratory laparotomy, partial colectomy (sigmoid), creation end ileostomy
- empiric Ceftriaxone/Flagyl switched to zosyn and Doxycycline as per ID
- continue IV PPI
- TPN per GS
Persistent Elevating Leukocytosis despite extended course IV abx as above
-Repeat CT abd/pelvis appreciated noted ascites possible cirrhosis moderate to severe subcutaneous edema.
-Surgery eval appreciated, s/p repeat surgical exploration stoma repeat bowel resection and stoma creation
-IR eval requested for diagnostic/therapeutic paracentesis however noted ascites too small as per IR review of imaging
-Ascites noted to be likely old blood as seen during above repeat surgical exploration
-ID eval appreciated
-BNP elevated, ECHO noted preserved EF 60-65% no significant changed from prior ECHO 2020
-empiric Lasix started for possible acute Heart Failure vs iatrogenic Fluid overload
-cardio eval appreciated
-concern for post-op ileus nausea hiccups, patient strict NPO as per surgery
Acute Blood Loss Anemia following repeat procedure as above
-transfused 1PRBC with lasix
-monitor H&H
Community acquired PNA, LLL
Vent dependent respiratory failure
- extubated 10/18
- currently on 2L; wean O2 as able
- empiric Ceftriaxone/Flagyl completed, on zosyn and Doxycycline as per ID
JOSE from septic shock resolved
Acute metabolic acidosis
- monitor renal function
- monitor labs while on TPN
A. Fib with RVR
- likely driven by septic shock
- monitor rates; transitioned to PO Metoprolol 25mg q6h further transitioned to long acting 50 mg BID
- cont IV Heparin gtt
-Cardio eval appreciated
Hypernatremia resolved
Mild transaminitis
resolved
Hx of Essential HTN
- holding JORY/HCTZ
-started on Lasix as above
Type 2 DM
- holding Metformin
- completed critical care insulin protocol
- continue SSI
- Diabetes SHANK TAPER following
Hx of COPD
Former tobacco use disorder with [id number] history, quit about 15 years ago
Hypokalemia
Hypophosphatemia
- monitor and replete as necessary
Urinary retention
- continue Flomax
- Celaya catheter, eventual trial of void
10/25 Testicular Ecchymosis Painless Unclear etiology
noted by nurse
checking scrotal US
DVT ppx: SCDs
Code: DNR
I spent a total of 50 minutes with the patient or on the floor. More than 50% of this time involved counseling and coordination of care.
Anticipated Discharge: > 48 hours
Subjective/Interval History
-
Date of Service: October 26, 2023
hiccups nausea. suspect post-op ileus. Pain otherwise controlled at this time.
Objective Data
-
Labs:
Laboratory Results
10/26/23
06:11
WBC 22.3 H
Hgb 7.2 L
Hct 21.2 L
Plt Count 374 D
PT 15.3 H
INR 1.20
Sodium 137
Potassium 4.3
Chloride 98
Carbon Dioxide 31 H
BUN 24 H
Creatinine 0.5 L
Glucose 352 H
Calcium 8.0 L
Total Bilirubin 0.5
AST 23
ALT 15
Alkaline Phosphatase 55
Vital Signs:
Vital Signs
Temp Pulse Resp BP Pulse Ox
98.3 F 120 15 126/82 95
10/26/23 03:55 10/26/23 07:20 10/26/23 07:20 10/26/23 06:00 10/26/23 07:20
I&O
10/25/23 10/26/23 10/27/23
06:59 06:59 06:59
Intake Total 100 / 100 1194 / 1194
Output Total 3550 / 3550 2300 / 2300
Balance -3450 / -3450 -1106 / -1106
[2023-10-26] MEDS: DESENEX/MITRAZOL/ZEASORB 1 APPLIC TOPICAL ×2 (08:26→21:21)
--- NOTE | 2023-10-26 08:26 | W.PN.CARDCBS ---
Today's Communication / Plan
-
Cont IV lasix diuresis as he received over 17 L IVF since admit.
Monitor daily wts, cr and Is and Os, neg over 1100 last 24 hrs.
EF preserved on recent echo with no significant valve disease
Consider transfusion for post op anemia with additional lasix after transfusion. Hb 7.2 on 10/26/2023.
Cont rate control for perm aFib. Remains on Toprol
Resume Anticoagulation/Eliquis once ok with surgery. He had explor lap with ileostomy for necrotic stoma 10/25/2023.
ID evaluating for recent lyme arthritis, persistent leukocytosis, 2L old blood in abdomen, cont broad spectrum abx.
Impression / Plan
-
.
PCP: Dr. Herrera
Cardiology: Dr. Simms, last seen 06/29/22
Impression:
Admitted with stercoral colitis and sepsis 10/15/23
s/p s/p ex lap with subtotal colectomy in a damage control operation 10/15/23
s/p segmental sigmoid resection, end ileostomy and abd wound closure 10/18/23
s/p exploratory lap, small bowel resection, creation end ileostomy, secondary to stoma with necrotic mucosa 10/25/2023
Permanent Afib with RVR
Acute HFpEF
LLL PNA
Leukocytosis
post op anemia
JOSE
Hypernatremia
Hypokalemia
Elevated LFTs
DM 2
COPD
Echo 10/25/23: EF 60-65%, trace MR, aortic sclerosis without stenosis
Plan:
Cont IV lasix diuresis as he received over 17 L IVF since admit.
Monitor daily wts, cr and Is and Os, neg over 1100 last 24 hrs.
EF preserved on recent echo with no significant valve disease
Consider transfusion for post op anemia with additional lasix after transfusion. Hb 7.2 on 10/26/2023.
Cont rate control for perm aFib. Remains on Toprol
Resume Anticoagulation/Eliquis once ok with surgery. He had explor lap with ileostomy for necrotic stoma 10/25/2023.
ID evaluating for recent lyme arthritis, persistent leukocytosis, 2L old blood in abdomen, cont broad spectrum abx.
HPI: [facility] with abdominal pain and constipation and was admitted with sepsis and stercoral colitis, cardiology is now consulted for acute HF. Patient came to ER with abdominal pain and constipation and appeared to be septic.
He was started on pressors and later taken to the OR same day for a damage control operation with subtotal colectomy. He returned to the OR 10/18/23 for wound closure and end ileostomy. Patient has received 17.25 liters of IVFs since admission. He is
now allowed sips of water and is receiving TPN. Cardiology is asked to see patient for possible acute HF. His weight is overall up 10 lbs from admission despite NPO and bowel surgery. He denies edema, bloating or SOB. His pro-BNP was 3680 yesterday
and he was started on Lasix 40 mg IV daily. Patient denies chest pain. He has permanent Afib and HRs are rapid, but he denies palpitations. He was not taking a rate controlling med prior to admission, but was started on Toprol XL 50 mg BID
yesterday.
Progress Note - Clipper Machine
Subjective
Date of Service: October 26, 2023
Pt seen and examined. No complaints. No chest pain or shortness of breath.
Objective
Labs:
10/26/23 06:11
10/26/23 06:11
Labs
Hgb 7.2 g/dL (13.0-18.0) L 10/26/23 06:11
Hct 21.2 % (39.0-52.0) L 10/26/23 06:11
Plt Count 374 10^3/uL (130-400) D 10/26/23 06:11
PT 15.3 Sec (11.4-14.6) H 10/26/23 06:11
INR 1.20 10/26/23 06:11
APTT Cancelled 10/25/23 12:30
Sodium 137 mmol/L (135-145) 10/26/23 06:11
Potassium 4.3 mmol/L (3.5-5.1) 10/26/23 06:11
BUN 24 mg/dl (9-20) H 10/26/23 06:11
Creatinine 0.5 mg/dL (0.7-1.3) L 10/26/23 06:11
Glucose 352 mg/dl (70-99) H 10/26/23 06:11
Vital Signs and I&O:
Vital Signs
Temp Pulse Resp BP Pulse Ox
98.5 F 120 15 126/82 95
10/26/23 07:14 10/26/23 07:20 10/26/23 07:20 10/26/23 06:00 10/26/23 07:20
Vital Signs
Temp Pulse Resp BP Pulse Ox
98.5 F 120 15 126/82 95
10/26/23 07:14 10/26/23 07:20 10/26/23 07:20 10/26/23 06:00 10/26/23 07:20
Intake & Output
10/24/23 10/25/23 10/26/23 10/27/23
06:59 06:59 06:59 06:59
Intake Total 1880 / 1880 100 / 100 1194 / 1194
Output Total 2700 / 2700 3550 / 3550 2300 / 2300
Balance -820 / -820 -3450 / -3450 -1106 / -1106
Physical Exam
Physical Exam
General: No acute distress, AAOX3
Neck: Negative JVD
Heart: Irregularlly irregular, Negative S3 positive S1/S2, Negative S4, No murmur
Lungs: CTA b/l, negative wheezes/rales/rhonchi
Abd: Positive BS, NT/ND, neg rebound/rigidity/guarding
Ext: Negative cyanosis/clubbing/edema
Neuro: nonfocal
[2023-10-26] MEDS: LASIX 40 MG IV (08:27)
[2023-10-26] MEDS: NSS (PRESERVATIVE FREE) 10 ML IV ×2 (08:29→21:21)
[2023-10-26] MEDS: PROTONIX IV 40 MG IV ×2 (08:30→21:21)
[2023-10-26] MEDS: VIBRAMYCIN 100 MG PO (08:30)
[2023-10-26] MEDS: TOPROL XL 50 MG PO (08:30)
--- NOTE | 2023-10-26 09:06 | W.PN.ID1 ---
Date of Service
Date of Service: October 26, 2023
Today's Communication
continue zosyn and doxycycline
Assessment / Plan
Leukocytosis - persistent
s/p ex lap with subtotal colectomy for ischemic colitis - left in discontinuity 10/15/23
s/p segmental sigmoid resection, end ileostomy and abd wound closure 10/18/23
s/p Exploratory laparotomy, small bowel resection, creation end ileostomy 10/25/23
Anasarca
recent diagnosis of lyme arthritis of R knee - outpatient by PCP
reported penicillin allergy unknown
- 10/24 OR report: 2L of old blood in the abdomen, without purulence, cultures were not sent, blood is a good media for growing many bacteria
- CT a/p with question of cirrhosis but OR findings with old blood rather than ascites and no comment on the liver; also note CT most consistent with atelectasis bilaterally rather than pneumonia; symptoms not consistent with pneumonia
- if leukocytosis not improving over next few days, could consider limited abd US to assess if sufficient fluid for paracentesis
- continue zosyn - patient tolerating it
- duration pending course
- if patient becomes febrile then would add micafungin
- continue doxycycline 10/04-10/31; 4 week course for lyme arthritis, ceftriaxone was equivalent drug; diagnosis made by PCP
- follow cbc daily, follow clinically
Chief Complaint
-: Leukocytosis
Subjective / Review of Systems
afebrile
bp stable off of pressors
persistnet leukocytosis
patient more alert and able to give me a history this am
no: headaches, sinus tenderness, cough, sputum production, sore throat, nausea, vomiting, new rashes or joint pains
he's been able to bear weight on the R knee recently, the knee is not swollen or tender
Vital Signs / Physical Exam
Vital Signs
Vital Signs
Temp Pulse Resp BP Pulse Ox
98.5 F 114 15 107/78 95
10/26/23 07:14 10/26/23 08:30 10/26/23 07:20 10/26/23 08:30 10/26/23 07:20
Physical Exam
Constitutional: Acutely Ill and Chronically Ill
Cardiovascular: Regular Rate and S1/S2; Negative Murmur or Rub
Pulmonary: Clear and Symmetric; Negative Wheezes or Rales
Gastrointestinal: Soft, Non Tender, Non Distended and Normal Bowel Sounds
Musculoskeletal: Other (right knee no redness, swelling or tenderness)
Skin: Warm and Dry; Negative Rash or Jaundice
Lines: PIV and PICC (no erythema, warmth swelling of tenderness)
Objective Data
Lab Data
Lab Results
10/26/23 06:11
10/26/23 06:11
PT 15.3 Sec (11.4-14.6) H 10/26/23 06:11
INR 1.20 10/26/23 06:11
APTT Cancelled 10/25/23 12:30
Estimated Creat Clear > 125 ml/min 10/26/23 06:11
Lactic Acid 1.3 mmol/L (0.7-2.0) 10/25/23 05:27
Total Bilirubin 0.5 mg/dl (0.2-1.3) 10/26/23 06:11
AST 23 U/L (17-59) 10/26/23 06:11
ALT 15 U/L (0-50) 10/26/23 06:11
Alkaline Phosphatase 55 U/L (38-126) 10/26/23 06:11
Most recent labs reviewed as above in addition
leukocytosis essentially stable compared to yesterday
hgb declined from 11-12 to 7.2
L shift persists
eos are not present today
Micro Results:
10/19/23 13:41 Respiratory Culture - Final
Endotracheal Yeast
Gram Stain - Final
10/15/23 05:43 Blood Culture - Final
Blood/Venous No Growth - Final Report
10/15/23 09:57 Urine Culture - Final
Urine NO GROWTH
--- NOTE | 2023-10-26 09:27 | W.PN.PUL3 ---
Today's Communication / Plan
-
Abx per ID
Change nebulizers to prn
Secretion clearance intervention
Aspiration precautions
Increase mobility as able; PT/OT rec'd acute rehab upon discharge
Trend leukocytosis and fever curve
Heparin gtt on hold; NPO; serial abdominal exams
Repeat CXR in 4 to 6 weeks to follow pneumonia resolution
Assessment
-
Assessment: 73-year-old male former tobacco smoker with past medical history of A-fib on Eliquis, hypertension, DM type II, BPH, history of COPD and allergic rhinitis who presents with lower abdominal pain, nausea/vomiting. Symptoms started last
night and he reports constipation for few days. Last BM about 3 days ago. Initial vitals in the ER showed he was in rapid A-fib with VR of 139 bpm, afebrile to 98.4 �F, breathing at 27 breaths minute, hypotensive to 76/59, and SpO2 93% on room
air. EKG confirmed A-fib with RVR. Labs showed leukocytosis to 20.4, creatinine 1.5, lactate 7.4, and T. bili 1.7. Blood culture collected. CT abdomen/pelvis showed fecal impaction without evidence for bowel obstruction. CXR showed retrocardiac
opacification concerning for left lower lobe pneumonia. He was given aztreonam/Flagyl in the ER, fentanyl, morphine, total of 3 L NS 0.9% and Zofran. He was admitted to the ICU for close monitoring with critical care services consulted for
additional management/recommendations.
Chronic conditions MANAGER TRANSPORT: Paroxysmal A-fib on Eliquis, hypertension, DM type II, BPH, history of Lyme disease complicated by arthritis, history of COPD, former tobacco use, allergic rhinitis
-
Pulmonary call back on 10/22/2023 for yeast on the sputum culture from endotracheal aspiration.
Impression:
Yeast on sputum culture
CAP involving LLL
Bilateral pleural effusions due to acute HFpEF
Persistent leukocytosis
Hyperglycemia
-
#Stercoral colitis with severe constipation s/p disimpaction in the ER
Status post expiratory laparotomy/subtotal colectomy-diagnosis bowel ischemia. OR date: 10/15/2023
S/p repeat ex lap with hematoma washout and revision of end ileostomy due to ischemia - OR date 10/25/2023
#Abdominal pain due to above
#Septic shock due to above in the setting of left lower lobe CAP - shock state resolved
#Lactic acidosis - resolved
#CAP involving left lower lobe
#Acute respiratory failure with hypoxia-requiring intubation mechanical ventilation.
Intubated 10/15/2023, extubated 10/19
#JOSE - resolved
#A-fib with RVR - now rate controlled
#Elevated INR
#Transaminitis with elevated T. bili + elevated ALP - now normalized
#Abnormal urinalysis with +1 leukocyte esterase
#Hypertension
#Reported history of COPD
#Former tobacco use disorder with [id number] history, quit about 15 years ago
Plan:
-
From the respiratory perspective overall he has improved since being out of ICU. His oxygen supplementation has decreased to 2-3 L nasal cannula.
Extubated 10/20/2023
Remains afebrile
Noted persistent leukocytosis.
Intermittently coughing some phlegm but not excessive. No hemoptysis.
Does not appear toxic
-
Left lower infiltrate could be atelectasis-doubt new pneumonia or worsening pneumonia. 10/22/2019
Less likely Leni as a pathogen at this point. I recommend against starting antifungals at this point. Will need close observation.
-
Currently on Zosyn + PO doxy (both started 10/24) s/p IV Flagyl (10/14 - 10/24), s/p ceftriaxone (10/17 - 10/22) + s/p cefepime (10/14 - 10/17) and lastly s/p micafungin (10/14 - 10/15)
ID on board - defer ABx to them
Continue secretion clearance interventions.
Encourage incentive spirometry
Continue Acapella device
DuoNebs TID --> can change to prn as he does not endorse improved breathing with nebulized treatments
Diurese as tolerated given pleural effusions and moderate to severe subcutaneous edema with ascites seen on imaging from 10/24/2023
-
History of COPD: Not bronchospastic. Continue nebulized bronchodilators
-
Status post exploratory laparotomy, subtotal colectomy on 10/15/2023.
Bowel ischemia involving transverse and descending colon: Noted
Status post colon partial colectomy sigmoid and creation of end ileostomy. 10/18/2023
- Continue with broad-spectrum antibiotics to cover intra-abdominal source as well as pneumonia.
discontinued micafungin 10/17/2019.
Currently on TPN; NPO per surgery and due to nausea/vomiting; defer diet to surgery
-
Atrial fibrillation
Rate controlled with goal HR<110
Replete K>4, Mg>2
Heparin drip on hold given anemia
Transfuse blood products as needed to keep Hb>7, plt>50k
- he is getting 1 U PRBC today due to Hb 7.2
-
DVT ppx: SCDs
Diet per surgery; currently on TPN
PPI for GI prophylaxis
-
Significantly deconditioned continue physical therapy Occupational Therapy - rec'd acute rehab on discharge
-
DNR status noted
-
Pulmonary will continue to follow for left lower lobe infiltrate + mild hypoxemia.

Data:
CT abdomen/pelvis with IV contrast 10/15/2023:
Findings concerning for fecal impaction.
Large amount of fecal material throughout the colon.
Bilateral too small to characterize hypodense renal lesions likely benign cysts.
Severe atherosclerotic vascular disease.
Solid noncalcified left lower lobe pulmonary nodule. Continued surveillance recommended.
CT Abd/pelvis with IV contrast 10/24/2023:
Status post subtotal colectomy.
Moderate ascites is present in all 4 quadrants, new since prior examination of October 15, 2023. There is no evidence of a focal collection to suggest an abscess.
Bilateral pleural effusions, left slightly greater than right. Adjacent compressive atelectasis within the posterior lower lungs.
Liver contour appears subtly nodular, suggestive of cirrhosis. No evidence of a focal hepatic mass lesion.
The rectum is distended with stool, transverse dimension of 7.9 cm. There is mild perirectal and presacral edema with no significant rectal wall thickening identified.
Moderate to severe subcutaneous edema.
CXR 10/15/2023: Findings suggesting mild left lower lobe pneumonia.
Total time spent today was 35 minutes for this encounter. Time includes reviewing laboratory test/imaging results, reviewing pertinent medical records, obtaining and reviewing medical history, performing an appropriate exam, ordering medications,
tests and procedures. Time also includes documentation of this encounter, coordinating patient care and communicating with other healthcare professionals. Total time does not include separately billed tests performed on this date of service.
Subjective Data
-
Date of Service:
Date of Service: October 26, 2023
Chief Complaint: Pulmonary Follow Up (Pneumonia)
Subjective:
Patient seen and evaluated today at bedside. at bedside. All questions were answered. Patient currently on 2 L/min nasal cannula and breathing comfortably, with SpO2 96%. Heart rate 84 and BP 115/68. Remains on TPN. Has some nausea with
vomiting of biliary fluid this morning but he currently denies any abdominal pain and nausea is controlled. He denies ALBERTO, chest pain, abdominal pain, fevers or chills.
Review of Systems
General: Other (Negative unless mentioned above)
Objective Data
Data Reviewed
Vital Signs / I&O / Oxygen:
Vital Signs
Temp Pulse Resp BP Pulse Ox
98.5 F 114 15 107/78 95
10/26/23 07:14 10/26/23 08:30 10/26/23 07:20 10/26/23 08:30 10/26/23 07:20
Intake and Output
10/25/23 10/26/23 10/27/23
06:59 06:59 06:59
Intake Total 100 / 100 1194 / 1194
Output Total 3550 / 3550 2300 / 2300
Balance -3450 / -3450 -1106 / -1106
SaO2 [CPAP] 95
SaO2 [A/C] 98
SaO2 95
Nasal Cannula flow liters per 2
minute
Physical Exam
General: Respiratory Distress (negative), Comfortable, Chills (negative) and Sweats (negative)
HEENT: Normocephalic and Anicteric
Cardiovascular: Irregular Rhythm and Peripheral Edema (+1 lower extremity edema bilaterally)
Respiratory: Wheeze (n), Crackles (Left base), Rhonchi (negative), Non-Labored Respirations and Other (Poor inspiratory effort)
GI: Soft, Non Distended, Non Tender, Other (Hypoactive bowel sounds) and Other (RLQ ileostomy with dark blood/stool seen in ostomy bag)
Neurology: AO x 3 and Tremors (negative)
Skin: Warm, Dry and Jaundice (negative)
Labs/Micro/Reports
Lab Data
10/26/23 06:11
10/26/23 06:11
Laboratory Results
10/25/23 10/25/23 10/26/23
05:27 12:30 06:11
PT 16.0 H 15.3 H
INR 1.28 1.20
APTT 119.1 H Cancelled
--- NOTE | 2023-10-26 09:56 | W.PN.GS2 ---
Today's Communication / Plan
-
`
Assessment / Plan
-
73 yo male with h/o of AFIB on Eliquis presenting with abdominal pain with fecal impaction on initial CT, disimpacted in ED but without relief in pain. Taken to the OR emergently on 10/15 as he clinically deteriorated with increasing abdominal pain.
POD #10 s/p ex lap with subtotal colectomy in a damage control operation
POD #7 s/p segmental sigmoid resection, end ileostomy and abd wound closure
POD#1 s/p ex lap, washout hematoma; revision of end ileostomy for ischemia
AF tachycardia, BP stable
some blood in appliance but no active bleeding noted at mucosal edges
nausea likely reflective of ileus post op
Plan: NPO until signs of returning GI function - would hold PO meds if nausea continues
TPN renewed without changes
if persistent nausea/recurrent vomiting or worsening abdominal distention strongly consider NGT placement
blood in appliance appears to be from some oozing around mucosal edges but no active bleeding
d/w hospitalist - repeat H&H and likely give pRBC transfusion
continue PPI BID
doxy and Zosyn - ID following
hold therapeutic AC until H&H stable
Subjective Data
-
Date of Service: October 26, 2023
pt seen and examined
post op pain controlled
nausea and small amt of bilious emesis this AM
some blood noted in ostomy appliance
Objective Data
-
Intake and Output
10/25/23 10/26/23 10/27/23
06:59 06:59 06:59
Intake Total 100 / 100 1194 / 1194
Output Total 3550 / 3550 2300 / 2300
Balance -3450 / -3450 -1106 / -1106
Intake:
IV fluids (Total) 238 / 238
Norm 150 / 150
Tpn 88 / 88
IV piggybacks 100 / 100 200 / 200
TPN/PPN 756 / 756
Output:
Liquid stool amount 100 / 100
Ileostomy 100 / 100
Urine, Celaya 3450 / 3450 2300 / 2300
Vital Signs
Temp Pulse Resp BP Pulse Ox
98.5 F 114 15 107/78 95
10/26/23 07:14 10/26/23 08:30 10/26/23 07:20 10/26/23 08:30 10/26/23 07:20
Lab Results
10/26/23 06:11
Calcium 8.0 mg/dl (8.4-10.2) L 10/26/23 06:11
Phosphorus 3.1 mg/dl (2.5-4.5) 10/26/23 06:11
Magnesium 1.9 mg/dl (1.6-2.3) 10/26/23 06:11
Total Bilirubin 0.5 mg/dl (0.2-1.3) 10/26/23 06:11
Direct Bilirubin 0.2 mg/dl (0.0-0.4) 10/26/23 06:11
AST 23 U/L (17-59) 10/26/23 06:11
ALT 15 U/L (0-50) 10/26/23 06:11
Alkaline Phosphatase 55 U/L (38-126) 10/26/23 06:11
Total Protein 4.5 g/dl (6.3-8.2) L 10/26/23 06:11
Albumin 2.2 g/dl (3.5-5.0) L 10/26/23 06:11
Physical Exam
-
NAD AAOx3
ABD: softly distended, mild TTP at incision area and ostomy, no R/R/G
R sided ostomy pink mucosa - dark bloody liquid in appliance; not enteric, no gas, no active bleeding seen at mucosal edges
[2023-10-26] MEDS: LANTUS 0.14 UNITS SC (10:40)
[2023-10-26 10:41] LABS: Hematocrit 22.7 % (39.0-52.0); Hemoglobin 7.2 g/dL (13.0-18.0)
--- NOTE | 2023-10-26 10:55 | CM ---
Addendum entered by Carmelina Pitts RN 10/26/23 11:11:
Additional: patient s/p Exploratory laparotomy, small bowel resection, creation end ileostomy 10/25/23.
Original Note:
Patient who is s/p ex lap, subtotal colectomy 10/14, s/p ex lap, partial colectomy, creation end ileostomy 10/17, s/p ex lap, sm bowel resection, creation end ileostomy. NPO/TPN/IVF - Electrolytes. Last PT/OT 10/23; recommends [facility]. Physiatry Consult
10/23- patient accepted by [facility]. Wound care nurse consult pending.
Spoke with [facility]; they are following this patient and will be able to accept her once off TPN. The patient meets AR criteria due to debility.
Plan [facility] when medically ready.
--- NOTE | 2023-10-26 11:53 | PN.DE.MGMTRT ---
Insulin Management
- -
10/25/2023: Diabetes Management Follow up:
Patient admitted 10/14 with lower abdominal abdominal pain, N&V. PMH: PAF, HTN, COPD, BPH, former tobacco smoker T2DM and allergic rhinitis. . CT A/P-->Stercoral colitis with severe constipation s/p disimpaction in the ER, s/p ex lap with subtotal
colectomy- due to severe ischemic bowel on 10/15/2023. Noted for Septic shock requiring multiple pressors, LLL Community acquired PNA and Vent dependent respiratory failure.
Prior to admission, pt was taking Metformin 500mg BID. Current A1C 6.2%.
Pt awake and alert, oob in chair, explained diabetes plan.
POD 8 segmented sigmoid resection, POD 10 subtotal colectomy, POD 1 wahout of hematoma revision of end ileostomy.
Receiving TPN, glucose range 254 to 296. Will add Q6 hour novolog 5 units with low corrective insulin Q 6 hours . Will increase lantus to 14 units daily.
Will follow for further needed adjustments.
Diabetes History
- -
Type of Diabetes: 2
Pre-Admission Diabetes Regimen
10/26/23
06:11
Creatinine 0.5 L
Lab Results
Hemoglobin A1c 6.2 % (4.0-5.6) H 10/16/23 03:28
Insulin Pump Settings
IP Diabetes Regimen
10/25/23 10/25/23 10/25/23
12:45 13:32 14:02
Glucose
POC Glucose 365 H 305 H 290 H
10/25/23 10/25/23 10/25/23
15:10 18:20 22:28
Glucose
POC Glucose 261 H 345 H 345 H
10/26/23 10/26/23
05:57 06:11
Glucose 352 H
POC Glucose 371 H
Meal type: Breakfast
Meal type: Dinner
Amount consumed: 0
Patient Education
[2023-10-26 12:06] LABS: Glucose - Point of Care 422 mg/dl (70-99)
--- NOTE | 2023-10-26 12:32 | WOUNDNOTE ---
[facility] RN NOTE: Visited patient s/p Exploratory laparotomy, small bowel resection, creation end ileostomy 10/25/23. Notes reviewed. Surgery and hospitalist aware of bloody drainage oozing from ostomy appliance. Stoma appears slightly budded. Midline
incision intact. Patient is awake and alert and spouse at bedside. Both asked appropriate questions and all questions answered. Ostomy supplies at bedside. Plan is for SNF. Neurologix Secure Start Kit was ordered by this racebook writer with patients
permission.
--- NOTE | 2023-10-26 13:54 | PTCARENOTE ---
Patient out of bed to chair. NPO due to vomiting this morning and nausea. Zofran administered with relief. Illeostomy with maroon colored output, surgeon aware. Celaya in place as per surgery order. Patient denying pain when asked. Bowel sounds
hypoactive on right upper quadrant, however absent on left side. Surgeon aware.
[2023-10-26 13:58] LABS: Glucose 370 mg/dl (70-99)
[2023-10-26] MEDS: NOVOLOG FLEXPEN SC (14:08)
[2023-10-26] MEDS: NOVOLOG FLEXPEN-LOW RESISTANCE SC (14:09)
--- NOTE | 2023-10-26 14:13 | PTCARENOTE ---
Patients acu check reading high. Serum glucose drawn and was 370. Diabetic BREWER HELPER notified and new insulin orders obtained. TPN rate decreased to 31ml/hour until glucose is controlled.
[2023-10-26] MEDS: NOVOLOG FLEXPEN 14 UNITS SC (14:19)
[2023-10-26] MEDS: LASIX 20 MG IV (16:10)
[2023-10-26] MEDS: LOPRESSOR 2.5 MG IV (16:12)
[2023-10-26] MEDS: FLOMAX PO (17:01)
--- NOTE | 2023-10-26 17:02 | WOUNDNOTE ---
[facility] RN note: GERARDO Oliver requested [facility] RN evaluation of scrotum. Scrotum with linear ecchymotic purple area along anterior-distal front of scrotum. Celaya catheter is not placing pressure to that area currently and is secured to R thigh with Stat lock
secure device. Unsure what caused the bruising. No edema. No induration. Non fluctuant. No erythema. Patient denies pain to area. No topical care indicated unless skin breaks open then barrier ointment (i.e. Vaseline) can be applied BID. Care plan
to be updated. L upper posterior heel with small dry scabbed abrasion. Patient confirmed he had prior to hospital admission. Heels off bed with pillow. Sacral skin intact. Patient is able to turn self in bed. Air chair cushion in room. Will follow
as needed. Appliance intact with dark brown liquid stool. Appliance change planned early next week for teaching. Patient stated he's too tired for any ostomy teaching currently. He stated his can be included in ostomy teaching. Ostomy supplies
in room. Plan is SNF rehab when discharged.
[2023-10-26] MEDS: NOVOLOG FLEXPEN-HIGH RESISTANCE 10 UNITS SC (17:26)
[2023-10-26 17:31] LABS: Glucose - Point of Care 345 mg/dl (70-99)
[2023-10-26 18:36] LABS: Hepatitis B Surface Antigen Negative (Negative)
[2023-10-26 18:54] LABS: Hepatitis B Core Ab, Total Negative (Negative); Hepatitis B Surface Antibody Negative; Hepatitis C Antibody Negative (Negative)
[2023-10-26 19:33] LABS: Hepatitis A Antibody, Total Negative (Negative)
--- NOTE | 2023-10-26 20:48 | PTCARENOTE ---
Confirmed with Deidra(nightshift pharmacist) that she received sign out from day pharmacist, who confirmed with the provider to keep the ordered rate at 63mL/hr for tonight new TPN bag. (New TPN bag has decreased amount of dextrose/lipids).
EZEKIEL Mireles also made aware that the patient will not receive his oral doxycycline d/t NPO order.
[2023-10-26] MEDS: VIBRAMYCIN PO (21:22)
[2023-10-26] MEDS: Parenteral Nutrition, Central 1500 IV (21:28)
[2023-10-27] VITALS (19 sets, daily range): BP systolic 96–138; BP diastolic 61–87; PULSE 83–86; O2SAT 97; BMI 28.9
[2023-10-27] MEDS: LOPRESSOR 2.5 MG IV ×3 (00:16→15:49)
[2023-10-27] MEDS: NOVOLOG FLEXPEN 5 UNITS SC ×2 (00:22→05:33)
[2023-10-27] MEDS: NOVOLOG FLEXPEN-HIGH RESISTANCE 4 UNITS SC ×2 (00:23→17:19)
[2023-10-27 00:32] LABS: Glucose - Point of Care 248 mg/dl (70-99)
[2023-10-27] MEDS: ZOSYN 100 IV ×4 (03:49→22:40)
[2023-10-27] MEDS: NOVOLOG FLEXPEN-HIGH RESISTANCE 7 UNITS SC (05:34)
[2023-10-27 05:45] LABS: Glucose - Point of Care 273 mg/dl (70-99)
[2023-10-27 06:36] LABS: % Basophils 0.3 % (0-2); % Eosinophils 1.8 % (0-6); % Immature Granulocytes 0.8 % (0-0.5); % Monocytes 7.7 % (1.7-9.3); % Neutrophils 83.4 % (42.2-75.2); Absolute Basophils 0.1 10^3/uL (0-0.2); Absolute Eosinophils 0.3 10^3/uL (0-0.7); Absolute Immature Granulocytes 0.1 10^3/uL (0-0.05); Absolute Monocytes 1.2 10^3/uL (0.1-0.6); Absolute Neutrophils 13.3 10^3/uL (1.4-6.5); Hematocrit 21.7 % (39.0-52.0); Hemoglobin 7.1 g/dL (13.0-18.0); Mean Corp Hgb Conc. 32.7 g/dL (33.0-37.0); Mean Corpuscular Hgb 30.5 pg (27.0-31.0); Mean Corpuscular Volume 93.1 fL (80.0-94.0); Mean Platelet Volume 9.4 fL (7.4-10.4); Nucleated Red Blood Cells % 0 % (-); Platelet Count 370 10^3/uL (130-400); Red Blood Cell Count 2.33 10^6/uL (4.70-6.10); Red Cell Dist. Width 15.2 % (11.5-14.5); White Blood Cell Count 15.9 10^3/uL (4.8-10.8)
--- NOTE | 2023-10-27 06:42 | PTCARENOTE ---
Patient drowsy, appears fatigued. NPO, ice chips provided. Afib on tele. Ileostomy with liquid/loose brown output. denies any pain. Denies any nausea or vomiting overnight. Celaya draining appropriately. Midline incision with dried old drainage.
Tolerating TPN and IV Abx.
Call zamora and tray table within reach. Pt calls appropriately.
[2023-10-27 06:56] LABS: ALT (SGPT) 15 U/L (0-50); AST (SGOT) 24 U/L (17-59); Albumin 2.1 g/dl (3.5-5.0); Alkaline Phosphatase 51 U/L (38-126); Blood Urea Nitrogen 29 mg/dl (9-20); Calcium 7.8 mg/dl (8.4-10.2); Carbon Dioxide 30 mmol/L (22-30); Chloride 99 mmol/L (98-107); Estimated Creatinine Clearance > 125 ml/min; Glucose 258 mg/dl (70-99); Magnesium 1.7 mg/dl (1.6-2.3); Phosphorus 3.1 mg/dl (2.5-4.5); Potassium 3.9 mmol/L (3.5-5.1); Sodium 138 mmol/L (135-145); Total Bilirubin 0.5 mg/dl (0.2-1.3); Total Protein 4.4 g/dl (6.3-8.2); eGFR > 60.00
--- NOTE | 2023-10-27 07:22 | W.PN.HOSP.TC ---
Today's Communication/Plan
-
NPO as per surgery
1PRBC transfusion with lasix
rate conrol as per Cardio
Testicular US
Glycemic control
Assessment / Plan
Assessment / Plan
Physical Exam
General: No Apparent Distress
HEENT: Normocephalic
Cardiac: Irregularly Irregular S1/S2
GI: Soft nontender ostomy present with biliary output
Genito-urinary: No Costovertebral Tender
Neuro: AO x 3
Psych: Calm
73M afib HTN DM here for septic shock ischemic bowel s/p bowel resection ostomy creation and downgrade from ICU.
Septic shock POA
- resolved; off all pressors
- s/p stress dose steroids
- weaned off IVF, on TPN as per surgery
- downgraded from ICU to F later upgraded back to IMU as below
Acute surgical abdomen with stercoral colitis with severe ischemic bowel
- s/p disimpaction in ER
- clinically unstable 10/14
- emergent OR 10/14: ex lap, subtotal colectomy for mesenteric ischemia, ischemic colon
- s/p OR 10/17: exploratory laparotomy, partial colectomy (sigmoid), creation end ileostomy
- empiric Ceftriaxone/Flagyl switched to zosyn and Doxycycline as per ID
- continue IV PPI
- TPN per GS
Persistent Elevating Leukocytosis despite extended course IV abx as above
-Repeat CT abd/pelvis appreciated noted ascites possible cirrhosis moderate to severe subcutaneous edema.
-Surgery eval appreciated, s/p repeat surgical exploration stoma repeat bowel resection and stoma creation
-IR eval requested for diagnostic/therapeutic paracentesis however noted ascites too small as per IR review of imaging
-Ascites noted to be likely old blood as seen during above repeat surgical exploration
-ID eval appreciated
-BNP elevated, ECHO noted preserved EF 60-65% no significant changed from prior ECHO 2020
-empiric Lasix started for possible acute Heart Failure vs iatrogenic Fluid overload
-cardio eval appreciated
-concern for post-op ileus nausea hiccups, patient strict NPO as per surgery
Acute Blood Loss Anemia following repeat procedure as above
-total 2PRBC transfusions with lasix since above procedure
-monitor H&H
Community acquired PNA, LLL
Vent dependent respiratory failure
- extubated 10/18
- wean O2 as tolerated
- empiric Ceftriaxone/Flagyl completed, on zosyn and Doxycycline as per ID
JOSE from septic shock resolved
Acute metabolic acidosis
- monitor renal function
- monitor labs while on TPN
A. Fib with RVR
- likely driven by septic shock
- monitor rates; transitioned to PO Metoprolol 25mg q6h further transitioned to long acting 50 mg BID
- IV Heparin gtt on hold due to acute blood loss anemia post-procedure as above
-Cardio eval appreciated
Hypernatremia resolved
Mild transaminitis
resolved
Hx of Essential HTN
- holding JORY/HCTZ
-started on Lasix as above
Type 2 DM
- holding Metformin
- completed critical care insulin protocol
- continue SSI
- Diabetes CDL BULK DRIVER following
Hx of COPD
Former tobacco use disorder with 36-fhtn-yvro history, quit about 15 years ago
Hypokalemia
Hypophosphatemia
- monitor and replete as necessary
Urinary retention
- continue Flomax
- Celaya catheter, eventual trial of void
10/25 mild Testicular Ecchymosis Painless Unclear etiology
checking scrotal US
DVT ppx: SCDs
Code: DNR
discussed with patient and patient's
I spent a total of 50 minutes with the patient or on the floor. More than 50% of this time involved counseling and coordination of care.
Anticipated Discharge: > 48 hours
Subjective/Interval History
-
Date of Service: October 27, 2023
Nausea improved. No acute distress. Reports fatigue. Pain controlled at this time. present during evaluation
Objective Data
-
Labs:
Laboratory Results
10/27/23
05:59
WBC 15.9 H
Hgb 7.1 L
Hct 21.7 L
Plt Count 370
Sodium 138
Potassium 3.9
Chloride 99
Carbon Dioxide 30
BUN 29 H
Creatinine 0.6 L
Glucose 258 H
Calcium 7.8 L
Total Bilirubin 0.5
AST 24
ALT 15
Alkaline Phosphatase 51
Vital Signs:
Vital Signs
Temp Pulse Resp BP Pulse Ox
98.0 F 72 18 123/83 98
10/27/23 05:18 10/27/23 06:30 10/27/23 06:30 10/27/23 06:01 10/27/23 06:30
I&O
10/26/23 10/27/23 10/28/23
06:59 06:59 06:59
Intake Total 1194 / 1194 1464 / 1464
Output Total 2300 / 2300 3490 / 3490
Balance -1106 / -1106 -2025 /
--- NOTE | 2023-10-27 07:50 | PN.DE.MGMTRT ---
Insulin Management
- -
10/27/2023: Diabetes Management F/U:
Patient admitted 10/14 with lower abdominal abdominal pain, N&V. PMH: PAF, HTN, COPD, BPH, former tobacco smoker T2DM and allergic rhinitis. . CT A/P-->Stercoral colitis with severe constipation s/p disimpaction in the ER, s/p ex lap with subtotal
colectomy- due to severe ischemic bowel on 10/15/2023. Noted for Septic shock requiring multiple pressors, LLL Community acquired PNA and Vent dependent respiratory failure.
Prior to admission, pt was taking Metformin 500mg BID. Current A1C 6.2%.
Pt awake and alert, sitting up in bed, explained diabetes plan. Pt appears tired with a flat affect.
POD #11 s/p subtotal colectomy, POD #9 s/p segmented sigmoid resection and POD # 2 washout of hematoma revision of end ileostomy.
Remains on TPN contributing to persistent Hyperglycemia, range 248 to 422, requiring additional corrective insulin.
Will increase Q6 hour NovoLog to 10 units and Lantus to 18 units. Cont High corrective insulin Q 6 hours .
Will follow for further needed adjustments.
Diabetes History
- -
Type of Diabetes: 2 requiring insulin
Pre-Admission Diabetes Regimen
10/27/23
05:59
Creatinine 0.6 L
Lab Results
Hemoglobin A1c 6.2 % (4.0-5.6) H 10/16/23 03:28
Insulin Pump Settings
IP Diabetes Regimen
10/26/23 10/26/23 10/26/23
11:55 12:18 13:34
Glucose Cancelled 370 H
POC Glucose 422 H
10/26/23 10/27/23 10/27/23
17:19 00:21 05:32
Glucose
POC Glucose 345 H 248 H 273 H
10/27/23
05:59
Glucose 258 H
POC Glucose
Meal type: Breakfast
Patient Education
[2023-10-27] MEDS: VIBRAMYCIN PO (08:31)
[2023-10-27] MEDS: LASIX 40 MG IV ×2 (08:32→15:50)
[2023-10-27] MEDS: PROTONIX IV 40 MG IV ×2 (08:32→21:04)
[2023-10-27] MEDS: NSS (PRESERVATIVE FREE) 10 ML IV ×2 (08:32→21:04)
[2023-10-27] MEDS: DESENEX/MITRAZOL/ZEASORB 1 APPLIC TOPICAL ×2 (08:37→20:57)
--- NOTE | 2023-10-27 08:50 | W.PN.PUL3 ---
Today's Communication / Plan
-
Abx per ID
prn duonebs
Secretion clearance intervention
Aspiration precautions
Increase mobility as able; PT/OT rec'd acute rehab upon discharge
Trend leukocytosis and fever curve
Heparin gtt on hold; NPO; serial abdominal exams
Repeat CXR in 4 to 6 weeks to follow pneumonia resolution
Assessment
-
Assessment: 73-year-old male former tobacco smoker with past medical history of A-fib on Eliquis, hypertension, DM type II, BPH, history of COPD and allergic rhinitis who presents with lower abdominal pain, nausea/vomiting. Symptoms started last
night and he reports constipation for few days. Last BM about 3 days ago. Initial vitals in the ER showed he was in rapid A-fib with VR of 139 bpm, afebrile to 98.4 �F, breathing at 27 breaths minute, hypotensive to 76/59, and SpO2 93% on room
air. EKG confirmed A-fib with RVR. Labs showed leukocytosis to 20.4, creatinine 1.5, lactate 7.4, and T. bili 1.7. Blood culture collected. CT abdomen/pelvis showed fecal impaction without evidence for bowel obstruction. CXR showed retrocardiac
opacification concerning for left lower lobe pneumonia. He was given aztreonam/Flagyl in the ER, fentanyl, morphine, total of 3 L NS 0.9% and Zofran. He was admitted to the ICU for close monitoring with critical care services consulted for
additional management/recommendations.
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
-
Pulmonary call back on 10/22/2023 for yeast on the sputum culture from endotracheal aspiration.
Impression:
Yeast on sputum culture
CAP involving LLL
Bilateral pleural effusions due to acute HFpEF
Persistent leukocytosis
Hyperglycemia
-
#Stercoral colitis with severe constipation s/p disimpaction in the ER
Status post expiratory laparotomy/subtotal colectomy-diagnosis bowel ischemia. OR date: 10/15/2023
S/p repeat ex lap with hematoma washout and revision of end ileostomy due to ischemia - OR date 10/25/2023
#Abdominal pain due to above
#Septic shock due to above in the setting of left lower lobe CAP - shock state resolved
#Lactic acidosis - resolved
#CAP involving left lower lobe
#Acute respiratory failure with hypoxia-requiring intubation mechanical ventilation.
Intubated 10/15/2023, extubated 10/19
#JOSE - resolved
#A-fib with RVR - now rate controlled
#Elevated INR
#Transaminitis with elevated T. bili + elevated ALP - now normalized
#Abnormal urinalysis with +1 leukocyte esterase
#Hypertension
#Reported history of COPD
#Former tobacco use disorder with [id number] history, quit about 15 years ago
Plan:
-
From the respiratory perspective overall he has improved since being out of ICU. His oxygen supplementation has decreased to 2-3 L nasal cannula.
Extubated 10/20/2023
Remains afebrile
Noted persistent leukocytosis, albeit improving
Intermittently coughing some phlegm but not excessive. No hemoptysis.
Does not appear toxic
-
Left lower infiltrate could be atelectasis-doubt new pneumonia or worsening pneumonia. 10/22/2019
Less likely Leni as a pathogen at this point. I recommend against starting antifungals at this point. Will need close observation.
-
Currently on Zosyn + PO doxy (both started 10/24) s/p IV Flagyl (10/14 - 10/24), s/p ceftriaxone (10/17 - 10/22) + s/p cefepime (10/14 - 10/17) and lastly s/p micafungin (10/14 - 10/15)
ID on board - defer ABx to them
Continue secretion clearance interventions.
Encourage incentive spirometry
Continue Acapella device
DuoNebs prn
Diurese as tolerated given pleural effusions and moderate to severe subcutaneous edema with ascites seen on imaging from 10/24/2023
-
History of COPD: Not bronchospastic. Continue nebulized bronchodilators
-
Status post exploratory laparotomy, subtotal colectomy on 10/15/2023.
Bowel ischemia involving transverse and descending colon: Noted
Status post colon partial colectomy sigmoid and creation of end ileostomy. 10/18/2023
- Continue with broad-spectrum antibiotics to cover intra-abdominal source as well as pneumonia.
discontinued micafungin 10/17/2019.
Currently on TPN; NPO per surgery and due to nausea/vomiting; defer diet to surgery
-
Atrial fibrillation
Rate controlled with goal HR<110
Replete K>4, Mg>2
Heparin drip on hold given anemia
Transfuse blood products as needed to keep Hb>7, plt>50k
- he is getting another 1 U PRBC today due to Hb 7.1; he received 1 U PRBC on 10/25 as well with Hb rising from 7.2 --> 7.1
-
DVT ppx: SCDs
Diet per surgery; currently on TPN
PPI for GI prophylaxis
-
Significantly deconditioned continue physical therapy Occupational Therapy - rec'd acute rehab on discharge
-
DNR status noted
-
Pulmonary will continue to follow for left lower lobe infiltrate + mild hypoxemia.

Data:
CT abdomen/pelvis with IV contrast 10/15/2023:
Findings concerning for fecal impaction.
Large amount of fecal material throughout the colon.
Bilateral too small to characterize hypodense renal lesions likely benign cysts.
Severe atherosclerotic vascular disease.
Solid noncalcified left lower lobe pulmonary nodule. Continued surveillance recommended.
CT Abd/pelvis with IV contrast 10/24/2023:
Status post subtotal colectomy.
Moderate ascites is present in all 4 quadrants, new since prior examination of October 15, 2023. There is no evidence of a focal collection to suggest an abscess.
Bilateral pleural effusions, left slightly greater than right. Adjacent compressive atelectasis within the posterior lower lungs.
Liver contour appears subtly nodular, suggestive of cirrhosis. No evidence of a focal hepatic mass lesion.
The rectum is distended with stool, transverse dimension of 7.9 cm. There is mild perirectal and presacral edema with no significant rectal wall thickening identified.
Moderate to severe subcutaneous edema.
CXR 10/15/2023: Findings suggesting mild left lower lobe pneumonia.
Total time spent today was 35 minutes for this encounter. Time includes reviewing laboratory test/imaging results, reviewing pertinent medical records, obtaining and reviewing medical history, performing an appropriate exam, ordering medications,
tests and procedures. Time also includes documentation of this encounter, coordinating patient care and communicating with other healthcare professionals. Total time does not include separately billed tests performed on this date of service.
Subjective Data
-
Date of Service:
Date of Service: October 27, 2023
Chief Complaint: Pulmonary Follow Up (Pneumonia) and Pneumonia Follow Up
Subjective:
Patient seen and evaluated this morning. Remains on TPN. Hb this morning 7.1 and he is being transfused another 1 unit PRBC. No active bleeding seen. Dark stool/blood seen in ileostomy bag. He feels well today although appears tired. Patient's
son, Shilo, at bedside. All questions were answered. He is currently on 2.5 L/min NC saturating 97%, heart rate 87 and BP 101/75. Patient denies chest pain, ALBERTO, SOB at rest, nausea, fevers or chills.
Review of Systems
General: Other (Negative unless mentioned above)
Objective Data
Data Reviewed
Vital Signs / I&O / Oxygen:
Vital Signs
Temp Pulse Resp BP Pulse Ox
97.9 F 75 21 138/87 96
10/27/23 07:05 10/27/23 08:32 10/27/23 07:15 10/27/23 09:54 10/27/23 07:55
Intake and Output
10/26/23 10/27/23 10/28/23
06:59 06:59 06:59
Intake Total 1194 / 1194 1464 / 1464 1116 / 1116
Output Total 2300 / 2300 3490 / 3490 50 / 50
Balance -1106 / -1106 -2025 / -2025 1066 / 1066
SaO2 [CPAP] 95
SaO2 [A/C] 98
SaO2 96
Nasal Cannula flow liters per 3
minute
Physical Exam
General: Respiratory Distress (negative), Comfortable, Chills (negative) and Sweats (negative)
HEENT: Normocephalic and Anicteric
Cardiovascular: Irregular Rhythm and Peripheral Edema (+1 lower extremity edema bilaterally)
Respiratory: Wheeze (n), Crackles (Left base), Rhonchi ([place] bilaterally upon expiration), Non-Labored Respirations and Other (Poor inspiratory effort)
GI: Soft, Non Distended, Non Tender, Other (Hypoactive bowel sounds) and Other (RLQ ileostomy with dark blood/stool seen in ostomy bag)
Neurology: AO x 3 and Tremors (negative)
Skin: Warm, Dry and Jaundice (negative)
Labs/Micro/Reports
Lab Data
10/27/23 05:59
--- NOTE | 2023-10-27 09:15 | W.PN.GS2 ---
Addendum entered and electronically signed by Azael Collado MD 10/27/23 14:42:
Patient seen and examined with surgical WASTE MACHINE OPERATOR in follow-up this afternoon.
States that he is feeling a bit better than yesterday. Still quite tired but nausea subsiding and no vomiting.
AFVSS
NAD AAOx3, sleepy but lying in hospital bed comfortably and conversive
ABD: Soft, less distended, minimal tenderness, no rebound rigidity or guarding
Midline laparotomy silver dressing in place
Right sided ileostomy with pink mucosa and dark bloody fluid but no clot or active bleeding.
Assessment/plan: Continue transfusion and following H&H
N.p.o. except sips and chips for comfort
TPN renewed and adjusted for hyperglycemia
Original Note:
Today's Communication / Plan
-
TPN renewed
NPO with sips of clears for comfort
Assessment / Plan
-
73 yo male with h/o of AFIB on Eliquis presenting with abdominal pain with fecal impaction on initial CT, disimpacted in ED but without relief in pain. Taken to the OR emergently on 10/15 as he clinically deteriorated with increasing abdominal pain.
POD #11 s/p ex lap with subtotal colectomy in a damage control operation
POD #8 s/p segmental sigmoid resection, end ileostomy and abd wound closure
POD#2 s/p ex lap, washout hematoma; revision of end ileostomy for ischemia
AFVSS
some blood in appliance but no active bleeding noted at mucosal edges
acute anemia present but relatively stable, receiving transfusion today
await bowel recovery
Plan: NPO return of GI function
TPN renewed without changes
if persistent nausea/recurrent vomiting or worsening abdominal distention strongly consider NGT placement
transfusion today
continue PPI BID
doxy and Zosyn - ID following
diabetic management as per diabetes WASTE MACHINE OPERATOR
analgesics/antiemetics as needed
hold therapeutic AC until H&H stable
Subjective Data
-
Date of Service: October 27, 2023
Patient seen and examined at bedside. Denies n/v but has emesis container close by 'in case'. Denies pain. Feels quite tired.
Objective Data
-
Intake and Output
10/26/23 10/27/23 10/28/23
06:59 06:59 06:59
Intake Total 1194 / 1194 1464 / 1464
Output Total 2300 / 2300 3490 / 3490
Balance -1106 / -1106 -2025 /
Intake:
Oral fluids 0 / 0
IV fluids (Total) 238 / 238
Norm 150 / 150
Tpn 88 / 88
IV piggybacks 200 / 200 400 / 400
TPN/PPN 756 / 756 564 / 564
Blood products 250 / 250
Blood Product Amount Infused ( 250 / 250
mL)
Packed Rbc Leukoreduced Unit 250 / 250
[id number]
Output:
Liquid stool amount 120 / 120
Ileostomy 120 / 120
Urine, Celaya 2300 / 2300 3370 / 3370
Other:
Number of immeasurable emeses? 3
Vital Signs
Temp Pulse Resp BP Pulse Ox
97.9 F 75 21 138/87 98
10/27/23 07:05 10/27/23 08:32 10/27/23 07:15 10/27/23 08:32 10/27/23 07:15
Lab Results
10/27/23 05:59
Calcium 7.8 mg/dl (8.4-10.2) L 10/27/23 05:59
Phosphorus 3.1 mg/dl (2.5-4.5) 10/27/23 05:59
Magnesium 1.7 mg/dl (1.6-2.3) 10/27/23 05:59
Total Bilirubin 0.5 mg/dl (0.2-1.3) 10/27/23 05:59
Direct Bilirubin 0.2 mg/dl (0.0-0.4) 10/26/23 06:11
AST 24 U/L (17-59) 10/27/23 05:59
ALT 15 U/L (0-50) 10/27/23 05:59
Alkaline Phosphatase 51 U/L (38-126) 10/27/23 05:59
Total Protein 4.4 g/dl (6.3-8.2) L 10/27/23 05:59
Albumin 2.1 g/dl (3.5-5.0) L 10/27/23 05:59
Physical Exam
-
NAD AAOx3
ABD: softly distended, NT, no R/R/G
R sided ostomy pink mucosa - dark bloody liquid in appliance, some small amount of gas, no active bleeding seen at mucosal edges
Incision with intact Aquacel dressing, no shadowing
[2023-10-27 09:20] LABS: Iron 27 ug/dl (49-181)
[2023-10-27 09:31] LABS: Percent Saturation 17 % (20-50); Total Iron Binding Capacity 157 ug/dl (261-462)
[2023-10-27] MEDS: LASIX 20 MG IV (09:54)
[2023-10-27] MEDS: LANTUS 0.18 UNITS SC (09:55)
--- NOTE | 2023-10-27 10:26 | PTCARENOTE ---
Assumed care of pt from night RN, pt AAOx3, pleasant but withdrawn. Reports feeling very tired today. No c/o n/v. Remains NPO, TPN infusing as ordered. Repositions in bed frequently.IV ABT infusing as ordered. 1 unit PRBC ordered and will give after
ABT. Emotional support given. Illeostomy outputting dark liquid, stoma red and budded. Midline incision with original post-op dressing, no new drainage noted. Will continue to monitor through shift.
[2023-10-27] MEDS: VIBRAMYCIN 260 MG IV ×2 (11:03→20:57)
[2023-10-27] MEDS: NOVOLOG FLEXPEN-HIGH RESISTANCE 10 UNITS SC (11:51)
[2023-10-27] MEDS: NOVOLOG FLEXPEN 10 UNITS SC ×2 (11:52→17:20)
[2023-10-27 12:00] LABS: Glucose - Point of Care 336 mg/dl (70-99)
[2023-10-27 12:07] LABS: Folate 8.3 ng/ml (2.76-20); Vitamin B12 906 pg/ml (239-931)
--- NOTE | 2023-10-27 12:09 | CM ---
Patient who is s/p ex lap, subtotal colectomy 10/14, s/p ex lap, partial colectomy, creation end ileostomy 10/17, s/p ex lap, sm bowel resection, creation end ileostomy, s/p Ex lap, SBR, creation end ileostomy for ischemic stoma 10/24. O2 3L. NPO/TPN.
Receiving IV Abx. Celaya. Physiatry Consult 10/23- patient accepted by [facility]. PT/OT recomends [facility]. Seen by ostomy nurse.
Met with patient and Shefali; both agree to [facility] when medically ready.
Plan [facility] when medically ready.
--- NOTE | 2023-10-27 12:56 | PTCARENOTE ---
Ordered unit of PRBCs initiated and infusing as ordered. No adverse effects noted, pt with no complaints. Pt tolerating well. Will monitor closely.
--- NOTE | 2023-10-27 14:29 | W.PN.CARDCBS ---
Addendum entered and electronically signed by Ziggy Simms MD 10/27/23 16:11:
I saw and examined the patient.
The WINDOWS LAPTOP TECHNICIAN or PA's note was reviewed and I agree with the note.
Comment: General: Well developed, well nourished in NAD.
Neck: Supple, no JVD, HJR, carotids +2 B/L, no bruits bilaterally.
Heart: Non displaced PMI, irregular, no murmurs, No S3, S4, no rubs.
Lungs: Scattered rhonchi
Abdomen: Normal bowel sounds, soft, non-tender, non-distended.
Extremities: No clubbing, cyanosis or edema bilaterally.
Neuro: Grossly nonfocal, awake, alert and oriented x3.
Weight remains 6 pounds over baseline. Will give another 40 mg of IV Lasix after transfusion. Continue IV Lopressor for rate control. Eventually resume outpatient Eliquis when stable from a surgical standpoint.
Original Note:
Today's Communication / Plan
-
1 unit packed RBCs transfusion
Continue IV diuresis, give an additional 40 mg IV upon completion of blood transfusion
Continue IV Lopressor for rate control
Resume anticoagulation once deemed stable from surgical standpoint
Impression / Plan
-
.
PCP: Dr. Herrera
Cardiology: Dr. Simms, last seen 06/29/22
Impression:
Admitted with stercoral colitis and sepsis 10/15/23
s/p s/p ex lap with subtotal colectomy in a damage control operation 10/15/23
s/p segmental sigmoid resection, end ileostomy and abd wound closure 10/18/23
s/p exploratory lap, small bowel resection, creation end ileostomy, secondary to stoma with necrotic mucosa 10/25/2023
Permanent Afib with RVR
Acute HFpEF
LLL PNA
Leukocytosis
post op anemia
JOSE
Hypernatremia
Hypokalemia
Elevated LFTs
DM 2
COPD
Echo 10/25/23: EF 60-65%, trace MR, aortic sclerosis without stenosis
Plan:
Admitted with stercoral colitis and sepsis 10/15/23, s/p s/p ex lap with subtotal colectomy in a damage control operation 10/15/23, s/p segmental sigmoid resection, end ileostomy and abd wound closure 10/18/23
Remains n.p.o.
He received over 17 L IVF and is now on TPN, IV antibiotics since admission.
Peak weight was 237 lbs, current weight 218 lbs.
Cont IV Lasix diuresis as he is still above baseline weight
creat stable 0.6
Monitor daily wts, cr and Is and Os, neg at least 1700 mL last 24 hrs.
EF preserved on recent echo with no significant valve disease
Post op anemia, getting 1 unit pRBC (10/26) for Hbg 7.1. Give additional IV lasix post transfusion. Repeat Hgb pending this evening; also getting IV iron
Permanent atrial fibrillation - Cont rate control for perm aFib. Remains on Lopressor IV Q 8. Transition back to Toprol once he is able to tolerate oral meds
Resume Anticoagulation/Eliquis once ok with surgery standpoint. Remains off Heparin and Eliquis.
ID following for recent lyme arthritis, persistent leukocytosis. Currently getting Miconazole, Zosyn, Doxycycline evaluating
HPI: Patient came to [facility] 10/15/23 with abdominal pain and constipation and was admitted with sepsis and stercoral colitis, cardiology is now consulted for acute HF. Patient came to ER with abdominal pain and constipation and appeared to be septic.
He was started on pressors and later taken to the OR same day for a damage control operation with subtotal colectomy. He returned to the OR 10/18/23 for wound closure and end ileostomy. Patient has received 17.25 liters of IVFs since admission. He is
now allowed sips of water and is receiving TPN. Cardiology is asked to see patient for possible acute HF. His weight is overall up 10 lbs from admission despite NPO and bowel surgery. He denies edema, bloating or SOB. His pro-BNP was 3680 yesterday
and he was started on Lasix 40 mg IV daily. Patient denies chest pain. He has permanent Afib and HRs are rapid, but he denies palpitations. He was not taking a rate controlling med prior to admission, but was started on Toprol XL 50 mg BID
yesterday.
Progress Note - Concrete Analyst
Subjective
Date of Service: October 27, 2023
Patient seen and examined. Patient resting comfortably in bed getting blood transfusion. Reports he was able to sit in the chair for an hour earlier today. Feels very exhausted and has chronic nonproductive cough
Objective
Labs:
10/27/23 05:59
Labs
Hgb 7.1 g/dL (13.0-18.0) L 10/27/23 05:59
Hct 21.7 % (39.0-52.0) L 10/27/23 05:59
Plt Count 370 10^3/uL (130-400) 10/27/23 05:59
PT 15.3 Sec (11.4-14.6) H 10/26/23 06:11
INR 1.20 10/26/23 06:11
APTT Cancelled 10/25/23 12:30
Sodium 138 mmol/L (135-145) 10/27/23 05:59
Potassium 3.9 mmol/L (3.5-5.1) 10/27/23 05:59
BUN 29 mg/dl (9-20) H 10/27/23 05:59
Creatinine 0.6 mg/dL (0.7-1.3) L 10/27/23 05:59
Glucose 258 mg/dl (70-99) H 10/27/23 05:59
Vital Signs and I&O:
Vital Signs
Temp Pulse Resp BP Pulse Ox
98.2 F 79 24 97/77 96
10/27/23 12:52 10/27/23 12:52 10/27/23 12:52 10/27/23 12:52 10/27/23 07:55
Vital Signs
Temp Pulse Resp BP Pulse Ox
98.2 F 79 24 97/77 96
10/27/23 12:52 10/27/23 12:52 10/27/23 12:52 10/27/23 12:52 10/27/23 07:55
Intake & Output
10/25/23 10/26/23 10/27/23 10/28/23
06:59 06:59 06:59 06:59
Intake Total 100 / 100 1194 / 1194 1464 / 1464 1116 / 1116
Output Total 3550 / 3550 2300 / 2300 3490 / 3490 2500 / 2500
Balance -3450 / -3450 -1106 / -1106 -2026 / -2026 -1384 / -1384
Physical Exam
Physical Exam
General: No acute distress, AAOX3, Pallor
HEENT: supple, anicteric, mmm
Heart: Irregularlly irregular, Negative S3 positive S1/S2, Negative S4, No murmur
Lungs: diffuse crackles lower lobes with some scattered rhonchi
Abd: Positive BS, mild distention, minimal tenderness
Ext: Trace bilateral lower extremity edema, right upper extremity slightly edematous
Neuro: nonfocal
SKIN: no rash, warm, dry, pink
[2023-10-27 17:15] LABS: Glucose - Point of Care 212 mg/dl (70-99)
[2023-10-27] MEDS: FLOMAX 0.4 MG PO (17:20)
[2023-10-27 18:50] LABS: Hematocrit 26.1 % (39.0-52.0); Hemoglobin 8.8 g/dL (13.0-18.0)
[2023-10-27] MEDS: Parenteral Nutrition, Central 1500 IV (21:23)
[2023-10-27 21:54] LABS: Blood Urea Nitrogen 27 mg/dl (9-20); Calcium 7.9 mg/dl (8.4-10.2); Carbon Dioxide 37 mmol/L (22-30); Chloride 95 mmol/L (98-107); Estimated Creatinine Clearance > 125 ml/min; Glucose 110 mg/dl (70-99); Magnesium 1.5 mg/dl (1.6-2.3); Potassium 3.5 mmol/L (3.5-5.1); Sodium 138 mmol/L (135-145); eGFR > 60.00
--- NOTE | 2023-10-27 22:03 | PTCARENOTE ---
Addendum entered by Zoran Rodriguez RN 10/27/23 22:08:
Reviewed NPO diet order(OK for oral meds). Will replete electrolytes PO.
Original Note:
Patient having large amounts of urine output from Lasix administration today. Pt also c/o intermittent buttock pain that shoots down his right leg. Tele showing Afib with occasional PVCs. This was discussed with EZEKIEL Foster. BMP and magnesium labs
were ordered and drawn. Electrolyte results reported to Kristin.
[2023-10-27] MEDS: MAGNESIUM OXIDE 500 MG PO (22:25)
[2023-10-27] MEDS: KCL 20 MEQ PO (22:25)
[2023-10-28] VITALS (12 sets, daily range): BP systolic 90–126; BP diastolic 66–107; BMI 28.1
[2023-10-28] MEDS: NOVOLOG FLEXPEN-HIGH RESISTANCE SC
[2023-10-28 00:33] LABS: Glucose - Point of Care 188 mg/dl (70-99)
[2023-10-28] MEDS: LOPRESSOR 2.5 MG IV ×3 (00:45→16:27)
[2023-10-28] MEDS: NOVOLOG FLEXPEN 10 UNITS SC ×4 (00:45→18:18)
[2023-10-28] MEDS: ZOSYN 100 IV ×4 (05:13→21:43)
[2023-10-28 05:23] LABS: Glucose - Point of Care 175 mg/dl (70-99)
[2023-10-28] MEDS: NOVOLOG FLEXPEN-HIGH RESISTANCE 2 UNITS SC ×2 (05:29→18:24)
[2023-10-28 06:07] LABS: % Basophils 0.3 % (0-2); % Eosinophils 2.3 % (0-6); % Monocytes 7.5 % (1.7-9.3); % Neutrophils 82.9 % (42.2-75.2); Absolute Basophils 0.1 10^3/uL (0-0.2); Absolute Eosinophils 0.4 10^3/uL (0-0.7); Absolute Immature Granulocytes 0.2 10^3/uL (0-0.05); Absolute Lymphocytes 0.9 10^3/uL (1.2-3.4); Absolute Monocytes 1.2 10^3/uL (0.1-0.6); Absolute Neutrophils 13.1 10^3/uL (1.4-6.5); Hematocrit 25.6 % (39.0-52.0); Hemoglobin 8.4 g/dL (13.0-18.0); Mean Corp Hgb Conc. 32.8 g/dL (33.0-37.0); Mean Corpuscular Hgb 29.9 pg (27.0-31.0); Mean Corpuscular Volume 91.1 fL (80.0-94.0); Mean Platelet Volume 9.4 fL (7.4-10.4); Nucleated Red Blood Cells % 0 % (-); Platelet Count 369 10^3/uL (130-400); Red Blood Cell Count 2.81 10^6/uL (4.70-6.10); Red Cell Dist. Width 14.8 % (11.5-14.5); White Blood Cell Count 15.8 10^3/uL (4.8-10.8)
--- NOTE | 2023-10-28 06:09 | PTCARENOTE ---
CHG bath done this morning. RUE PICC line dressing intact, lumens patent. Ileostomy with 100mL brown liquid output overnight. Celaya with clear yellow urine at bedside. Tele showing Afib HR 80-100. Pt verbalizing frustrations overnight stating 'I
feel trapped. I can't move. I can't eat. I can't go home. I can't go to sleep.' Support provided, spoke with pt for 30 minutes of uninterrupted time. Pt thankful and able to fall asleep shortly after. Abd dressing with old drainage, unchanged.
Hypoactive BS. Denies nausea or vomiting. Tolerating TPN; blood sugars more controlled. Pt denies any pain at incision site. Tolerated sips and ice chips. Encouraged to reposition self in bed, assistance with pressure off-loading provided. SCDs on.
Call zamora and tray table within reach. Pt calls appropriately.
[2023-10-28 06:40] LABS: ALT (SGPT) 21 U/L (0-50); AST (SGOT) 34 U/L (17-59); Albumin 2.3 g/dl (3.5-5.0); Alkaline Phosphatase 59 U/L (38-126); Blood Urea Nitrogen 30 mg/dl (9-20); Calcium 8.1 mg/dl (8.4-10.2); Carbon Dioxide 34 mmol/L (22-30); Chloride 95 mmol/L (98-107); Estimated Creatinine Clearance > 125 ml/min; Glucose 165 mg/dl (70-99); Magnesium 1.6 mg/dl (1.6-2.3); Phosphorus 3.2 mg/dl (2.5-4.5); Potassium 3.5 mmol/L (3.5-5.1); Sodium 137 mmol/L (135-145); Total Bilirubin 0.9 mg/dl (0.2-1.3); Total Protein 4.7 g/dl (6.3-8.2); eGFR > 60.00
--- NOTE | 2023-10-28 07:09 | W.PN.HOSP.TC ---
Today's Communication/Plan
-
cont abx as per ID
rate control diuresis as per Cardiology
monitor H&H, transfusion if <8
Clear liquid diet, TPN as per Surgery
Assessment / Plan
Assessment / Plan
Physical Exam
General: No Apparent Distress
HEENT: Normocephalic
Cardiac: Irregularly Irregular S1/S2
GI: Soft nontender ostomy present
Genito-urinary: No Costovertebral Tender
Neuro: AO x 3
Psych: Calm
73M afib HTN DM here for septic shock ischemic bowel s/p bowel resection ostomy creation.
Acute surgical abdomen with stercoral colitis with severe ischemic bowel
-Septic shock POA resolved; off pressors, s/p stress dose steroids
- downgraded from ICU to F later upgraded back to IMU as below
- s/p disimpaction in ER
- clinically unstable 10/14
- emergent OR 10/14: ex lap, subtotal colectomy for mesenteric ischemia, ischemic colon
- s/p OR 10/17: exploratory laparotomy, partial colectomy (sigmoid), creation end ileostomy
- empiric Ceftriaxone/Flagyl switched to zosyn and Doxycycline as per ID
- continue IV PPI
- TPN per GS
Persistent Elevating Leukocytosis despite extended course IV abx as above
-Repeat CT abd/pelvis noted ascites possible cirrhosis moderate to severe subcutaneous edema.
-Surgery noted ischemic stoma 10/24 performed repeat Exploratory Laparotomy Small Bowel Resection Creation End ileostomy
-IR eval requested for diagnostic/therapeutic paracentesis however noted ascites too small as per IR review of imaging
-Ascites was noted to be old blood as seen during above repeat surgical exploration, hematoma washout performed
-ID eval appreciated
-BNP elevated, ECHO noted preserved EF 60-65% no significant change from prior ECHO 2020
-empiric Lasix started for possible acute Heart Failure vs iatrogenic Fluid overload
-cardio eval appreciated
-concern for post-op ileus nausea hiccups, patient briefly strict NPO post procedure before advance back to clear liquid diet as per surgery 10/27
Acute Blood Loss Anemia following repeat procedure as above
Iron Deficiency
Anemia of Chronic disease
-total 2PRBC transfusions with lasix since above procedure 10/24
-IV Iron supplementation started, eventual transition to PO
Community acquired PNA, LLL
Vent dependent respiratory failure
- extubated 10/18
- wean O2 as tolerated
- empiric Ceftriaxone/Flagyl completed, on zosyn and Doxycycline as per ID
JOSE from septic shock resolved
Acute metabolic acidosis
- monitor renal function
- monitor labs while on TPN
A. Fib with RVR
- likely driven by septic shock
- monitor rates; transitioned to PO Metoprolol 25mg q6h further transitioned to long acting 50 mg BID, switched to scheduled IV metoprolol due to strict NPO as above
- IV Heparin gtt on hold due to acute blood loss anemia post-procedure as above
-Cardio eval appreciated
Hypernatremia resolved
Mild transaminitis
resolved
Hx of Essential HTN
- holding JORY/HCTZ
-started on Lasix as above
Type 2 DM
- holding Metformin
- completed critical care insulin protocol
- continue SSI
- Diabetes ACTIVITY AIDE following
Hx of COPD
Former tobacco use disorder with [id number] history, quit about 15 years ago
Hypokalemia
Hypophosphatemia
- monitor and replete as necessary
Urinary retention
- continue Flomax
- Celaya catheter, eventual trial of void
10/25 mild Testicular Ecchymosis Painless, likely superficial bruising healing
scrotal US appreciated no acute abn's
PT/OT appreciated Acute Rehab
DVT ppx: SCDs
Code: DNR
discussed with patient and patient's
I spent a total of 50 minutes with the patient or on the floor. More than 50% of this time involved counseling and coordination of care.
Anticipated Discharge: > 48 hours
Subjective/Interval History
-
Date of Service: October 28, 2023
No acute distress. Nausea free. Reports feeling relatively well. General malaise fatigue persists. Denies new acute issues at this time.
Objective Data
-
Labs:
Laboratory Results
10/27/23 10/28/23
21:35 05:47
WBC 15.8 H
Hgb 8.4 L
Hct 25.6 L
Plt Count 369
Sodium 138 137
Potassium 3.5 3.5
Chloride 95 L 95 L
Carbon Dioxide 37 H 34 H
BUN 27 H 30 H
Creatinine 0.6 L 0.6 L
Glucose 110 H 165 H
Calcium 7.9 L 8.1 L
Total Bilirubin 0.9
AST 34
ALT 21
Alkaline Phosphatase 59
Vital Signs:
Vital Signs
Temp Pulse Resp BP Pulse Ox
98.2 F 105 17 102/75 93
10/28/23 03:25 10/28/23 06:00 10/28/23 06:00 10/28/23 06:00 10/28/23 06:00
I&O
10/27/23 10/28/23 10/29/23
06:59 06:59 06:59
Intake Total 1464 / 1464 2781 / 2781
Output Total 3490 / 3490 5900 / 5900
Balance -2025 / -2025 -3118 / -311
--- NOTE | 2023-10-28 08:05 | W.PN.ID1 ---
Date of Service
Date of Service: October 28, 2023
Today's Communication
Continue antibiotics.
Assessment / Plan
S/p ex lap with subtotal colectomy for ischemic colitis - 10/15/23
s/p segmental sigmoid resection, end ileostomy and abd wound closure 10/18/23
s/p Exploratory laparotomy, small bowel resection, creation end ileostomy 10/25/23
Anasarca
recent diagnosis of lyme arthritis of R knee - (by outpatient by PCP)
reported penicillin allergy unknown
Leukocytosis - persistent
- 10/24 OR report: 2L of old blood in the abdomen, without purulence, cultures were not sent
- if leukocytosis not improving over next few days, could consider limited abd US to assess if sufficient fluid for paracentesis
- continue zosyn
- duration pending course
- if patient becomes febrile then would add micafungin
- continue doxycycline 10/04 through 10/31; 4 week course for lyme arthritis, ceftriaxone was equivalent drug; diagnosis made by PCP
- follow cbc daily, follow clinically
����������������������������������������������������������
Chief Complaint
-: Leukocytosis
Subjective / Review of Systems
Review of Systems: No Fever and No Chills
Vital Signs / Physical Exam
Vital Signs
Vital Signs
Temp Pulse Resp BP Pulse Ox
97.9 F 105 17 102/75 93
10/28/23 07:00 10/28/23 06:00 10/28/23 06:00 10/28/23 06:00 10/28/23 06:00
Physical Exam
Constitutional: No Acute Distress, Comfortable and Non-toxic
Cardiovascular: Regular Rate and S1/S2; Negative Murmur or Rub
Pulmonary: Clear and Symmetric; Negative Wheezes or Rales
Gastrointestinal: Soft, Non Tender, Non Distended and Normal Bowel Sounds
Musculoskeletal: Other (right knee no redness, swelling or tenderness)
Skin: Warm and Dry; Negative Rash or Jaundice
Neurological: Awake and Alert
Lines: PIV and PICC (no erythema, warmth swelling of tenderness)
Objective Data
Lab Data
Lab Results
10/28/23 05:47
PT 15.3 Sec (11.4-14.6) H 10/26/23 06:11
INR 1.20 10/26/23 06:11
APTT Cancelled 10/25/23 12:30
Estimated Creat Clear > 125 ml/min 10/28/23 05:47
Lactic Acid 1.3 mmol/L (0.7-2.0) 10/25/23 05:27
Total Bilirubin 0.9 mg/dl (0.2-1.3) 10/28/23 05:47
AST 34 U/L (17-59) 10/28/23 05:47
ALT 21 U/L (0-50) 10/28/23 05:47
Alkaline Phosphatase 59 U/L (38-126) 10/28/23 05:47
Most recent labs reviewed.
Micro Results:
10/19/23 13:41 Respiratory Culture - Final
Endotracheal Yeast
Gram Stain - Final
10/15/23 05:43 Blood Culture - Final
Blood/Venous No Growth - Final Report
10/15/23 09:57 Urine Culture - Final
Urine NO GROWTH
[2023-10-28] MEDS: DESENEX/MITRAZOL/ZEASORB 1 APPLIC TOPICAL ×2 (08:43→20:27)
[2023-10-28] MEDS: NSS (PRESERVATIVE FREE) 10 ML IV (08:43)
[2023-10-28] MEDS: PROTONIX IV 40 MG IV (08:43)
[2023-10-28] MEDS: LASIX 40 MG IV (08:45)
[2023-10-28] MEDS: VIBRAMYCIN 260 MG IV ×2 (08:45→20:27)
[2023-10-28] MEDS: MAGNESIUM SULFATE 50 IV (08:46)
--- NOTE | 2023-10-28 09:48 | W.PN.PUL3 ---
Today's Communication / Plan
-
Abx per ID
prn duonebs
Secretion clearance intervention --> start mucinex
Aspiration precautions
Increase mobility as able; PT/OT rec'd acute rehab upon discharge
Trend leukocytosis and fever curve
Wean down supplemental O2 as tolerated; goal SpO2 >90-94%
Heparin gtt on hold; NPO; serial abdominal exams
Repeat CXR in 4 to 6 weeks to follow pneumonia resolution
Assessment
-
Assessment: 73-year-old male former tobacco smoker with past medical history of A-fib on Eliquis, hypertension, DM type II, BPH, history of COPD and allergic rhinitis who presents with lower abdominal pain, nausea/vomiting. Symptoms started last
night and he reports constipation for few days. Last BM about 3 days ago. Initial vitals in the ER showed he was in rapid A-fib with VR of 139 bpm, afebrile to 98.4 �F, breathing at 27 breaths minute, hypotensive to 76/59, and SpO2 93% on room
air. EKG confirmed A-fib with RVR. Labs showed leukocytosis to 20.4, creatinine 1.5, lactate 7.4, and T. bili 1.7. Blood culture collected. CT abdomen/pelvis showed fecal impaction without evidence for bowel obstruction. CXR showed retrocardiac
opacification concerning for left lower lobe pneumonia. He was given aztreonam/Flagyl in the ER, fentanyl, morphine, total of 3 L NS 0.9% and Zofran. He was admitted to the ICU for close monitoring with critical care services consulted for
additional management/recommendations.
Chronic conditions IT ASSOCIATE: Paroxysmal A-fib on Eliquis, hypertension, DM type II, BPH, history of Lyme disease complicated by arthritis, history of COPD, former tobacco use, allergic rhinitis
-
Pulmonary call back on 10/22/2023 for yeast on the sputum culture from endotracheal aspiration.
Impression:
Yeast on sputum culture
CAP involving LLL
Bilateral pleural effusions due to acute HFpEF
Persistent leukocytosis
Hyperglycemia
Weak cough
-
#Stercoral colitis with severe constipation s/p disimpaction in the ER
Status post expiratory laparotomy/subtotal colectomy-diagnosis bowel ischemia. OR date: 10/15/2023
S/p repeat ex lap with hematoma washout and revision of end ileostomy due to ischemia - OR date 10/25/2023
#Abdominal pain due to above
#Septic shock due to above in the setting of left lower lobe CAP - shock state resolved
#Lactic acidosis - resolved
#CAP involving left lower lobe
#Acute respiratory failure with hypoxia-requiring intubation mechanical ventilation.
Intubated 10/15/2023, extubated 10/19
#JOSE - resolved
#A-fib with RVR - now rate controlled
#Elevated INR
#Transaminitis with elevated T. bili + elevated ALP - now normalized
#Abnormal urinalysis with +1 leukocyte esterase
#Hypertension
#Reported history of COPD
#Former tobacco use disorder with 62-efue-vyhg history, quit about 15 years ago
Plan:
-
From the respiratory perspective overall he has improved since being out of ICU. His oxygen supplementation has decreased to 1-2 L/min nasal cannula.
Extubated 10/20/2023
Remains afebrile
Noted persistent leukocytosis, albeit improving
Intermittently coughing some phlegm but not excessive. No hemoptysis.
Does not appear toxic
-
Left lower infiltrate could be atelectasis-doubt new pneumonia or worsening pneumonia. 10/22/2019
Less likely Leni as a pathogen at this point. I recommend against starting antifungals at this point. Will need close observation.
-
Currently on Zosyn + PO doxy (both started 10/24) s/p IV Flagyl (10/14 - 10/24), s/p ceftriaxone (10/17 - 10/22) + s/p cefepime (10/14 - 10/17) and lastly s/p micafungin (10/14 - 10/15)
ID on board - defer ABx to them
Continue secretion clearance interventions.
Encourage incentive spirometry
Continue Acapella device + start mucinex
DuoNebs prn
Diurese as tolerated given pleural effusions and moderate to severe subcutaneous edema with ascites seen on imaging from 10/24/2023
-
History of COPD: Not bronchospastic. Continue nebulized bronchodilators
-
Status post exploratory laparotomy, subtotal colectomy on 10/15/2023.
Bowel ischemia involving transverse and descending colon: Noted
Status post colon partial colectomy sigmoid and creation of end ileostomy. 10/18/2023
- Continue with broad-spectrum antibiotics to cover intra-abdominal source as well as pneumonia.
discontinued micafungin 10/17/2019.
Currently on TPN; clear liquid diet started today--> ADAT per surgery and monitor for nausea/vomiting
-
Atrial fibrillation
Rate controlled with goal HR<110
Replete K>4, Mg>2
Heparin drip on hold given anemia
Transfuse blood products as needed to keep Hb>7, plt>50k
- he received 1 U PRBC on 10/26 due to Hb 7.1 --> follow up Hb 8.8; he received 1 U PRBC on 10/25 as well with Hb rising from 7.2 --> 7.1
-
DVT ppx: SCDs
Diet deferred to surgery; currently on TPN
PPI for GI prophylaxis --> can change to PO, and unclear if he even still needs GI ppx
-
Significantly deconditioned continue physical therapy Occupational Therapy - rec'd acute rehab on discharge
-
DNR status noted
-
Pulmonary will continue to follow for left lower lobe infiltrate + mild hypoxemia.

Data:
CT abdomen/pelvis with IV contrast 10/15/2023:
Findings concerning for fecal impaction.
Large amount of fecal material throughout the colon.
Bilateral too small to characterize hypodense renal lesions likely benign cysts.
Severe atherosclerotic vascular disease.
Solid noncalcified left lower lobe pulmonary nodule. Continued surveillance recommended.
CT Abd/pelvis with IV contrast 10/24/2023:
Status post subtotal colectomy.
Moderate ascites is present in all 4 quadrants, new since prior examination of October 15, 2023. There is no evidence of a focal collection to suggest an abscess.
Bilateral pleural effusions, left slightly greater than right. Adjacent compressive atelectasis within the posterior lower lungs.
Liver contour appears subtly nodular, suggestive of cirrhosis. No evidence of a focal hepatic mass lesion.
The rectum is distended with stool, transverse dimension of 7.9 cm. There is mild perirectal and presacral edema with no significant rectal wall thickening identified.
Moderate to severe subcutaneous edema.
CXR 10/15/2023: Findings suggesting mild left lower lobe pneumonia.
Total time spent today was 35 minutes for this encounter. Time includes reviewing laboratory test/imaging results, reviewing pertinent medical records, obtaining and reviewing medical history, performing an appropriate exam, ordering medications,
tests and procedures. Time also includes documentation of this encounter, coordinating patient care and communicating with other healthcare professionals. Total time does not include separately billed tests performed on this date of service.
Subjective Data
-
Date of Service:
Date of Service: October 28, 2023
Chief Complaint: Pulmonary Follow Up (Pneumonia) and Pneumonia Follow Up
Subjective:
Patient seen and evaluated today at bedside. Still has a weak/wet sounding cough. Currently on TPN. He denies shortness of breath, nausea/vomiting, fevers or chills. He is currently on 1 L/min nasal cannula saturating 92%. Heart rate 95 and BP
106/80. No acute events reported overnight.
Review of Systems
General: Other (Negative unless mentioned above)
Objective Data
Data Reviewed
Vital Signs / I&O / Oxygen:
Vital Signs
Temp Pulse Resp BP Pulse Ox
97.9 F 95 17 123/81 97
10/28/23 07:00 10/28/23 08:44 10/28/23 06:00 10/28/23 08:44 10/28/23 09:02
Intake and Output
10/27/23 10/28/23 10/29/23
06:59 06:59 06:59
Intake Total 1464 / 1464 2781 / 2781
Output Total 3490 / 3490 5900 / 5900 50 / 50
Balance -2025 / -2025 -3119 / -3119 -50 / -50
SaO2 [CPAP] 95
SaO2 [A/C] 98
SaO2 97
Nasal Cannula flow liters per 2
minute
Physical Exam
General: Respiratory Distress (negative), Comfortable, Chills (negative) and Sweats (negative)
HEENT: Normocephalic and Anicteric
Cardiovascular: S1-S2 and Peripheral Edema (+1 lower extremity edema bilaterally)
Respiratory: Wheeze (n), Crackles (Left base), Rhonchi (Pratt bilaterally upon expiration) and Non-Labored Respirations
GI: Soft, Non Distended, Non Tender, Other (Hypoactive bowel sounds) and Other (RLQ ileostomy with dark blood/stool seen in ostomy bag)
Neurology: AO x 3 and Tremors (negative)
Skin: Warm, Dry and Jaundice (negative)
Labs/Micro/Reports
Lab Data
10/28/23 05:47
--- NOTE | 2023-10-28 09:49 | W.PN.CARDCBS ---
Today's Communication / Plan
-
Continue IV Lasix
Rate controlled in A-fib
Eventual restart Eliquis when okay with surgery
Impression / Plan
-
.
PCP: Dr. Herrera
Cardiology: Dr. Simms, last seen 06/29/22
Impression:
Admitted with stercoral colitis and sepsis 10/15/23
s/p s/p ex lap with subtotal colectomy in a damage control operation 10/15/23
s/p segmental sigmoid resection, end ileostomy and abd wound closure 10/18/23
s/p exploratory lap, small bowel resection, creation end ileostomy, secondary to stoma with necrotic mucosa 10/25/2023
Permanent Afib with RVR
Acute HFpEF
LLL PNA
Leukocytosis
post op anemia
JOSE
Hypernatremia
Hypokalemia
Elevated LFTs
DM 2
COPD
Echo 10/25/23: EF 60-65%, trace MR, aortic sclerosis without stenosis
Plan:
He received over 17 L IVF and is now on TPN, IV antibiotics since admission.
Peak weight was 237 lbs, current weight 212 lbs.
Cont IV Lasix diuresis while n.p.o.
Remains on Lopressor IV Q 8. Transition back to Toprol once he is able to tolerate oral meds
Resume Anticoagulation/Eliquis once ok with surgery standpoint.
HPI: [facility] with abdominal pain and constipation and was admitted with sepsis and stercoral colitis, cardiology is now consulted for acute HF. Patient came to ER with abdominal pain and constipation and appeared to be septic.
He was started on pressors and later taken to the OR same day for a damage control operation with subtotal colectomy. He returned to the OR 10/18/23 for wound closure and end ileostomy. Patient has received 17.25 liters of IVFs since admission. He is
now allowed sips of water and is receiving TPN. Cardiology is asked to see patient for possible acute HF. His weight is overall up 10 lbs from admission despite NPO and bowel surgery. He denies edema, bloating or SOB. His pro-BNP was 3680 yesterday
and he was started on Lasix 40 mg IV daily. Patient denies chest pain. He has permanent Afib and HRs are rapid, but he denies palpitations. He was not taking a rate controlling med prior to admission, but was started on Toprol XL 50 mg BID
yesterday.
Progress Note - [place]
Subjective
Date of Service: October 28, 2023
No complaints
Objective
Labs:
10/28/23 05:47
Labs
Hgb 8.4 g/dL (13.0-18.0) L 10/28/23 05:47
Hct 25.6 % (39.0-52.0) L 10/28/23 05:47
Plt Count 369 10^3/uL (130-400) 10/28/23 05:47
PT 15.3 Sec (11.4-14.6) H 10/26/23 06:11
INR 1.20 10/26/23 06:11
APTT Cancelled 10/25/23 12:30
Sodium 137 mmol/L (135-145) 10/28/23 05:47
Potassium 3.5 mmol/L (3.5-5.1) 10/28/23 05:47
BUN 30 mg/dl (9-20) H 10/28/23 05:47
Creatinine 0.6 mg/dL (0.7-1.3) L 10/28/23 05:47
Glucose 165 mg/dl (70-99) H 10/28/23 05:47
Vital Signs and I&O:
Vital Signs
Temp Pulse Resp BP Pulse Ox
97.9 F 95 17 123/81 97
10/28/23 07:00 10/28/23 08:44 10/28/23 06:00 10/28/23 08:44 10/28/23 09:02
Vital Signs
Temp Pulse Resp BP Pulse Ox
97.9 F 95 17 123/81 97
10/28/23 07:00 10/28/23 08:44 10/28/23 06:00 10/28/23 08:44 10/28/23 09:02
Intake & Output
10/26/23 10/27/23 10/28/23 10/29/23
06:59 06:59 06:59 06:59
Intake Total 1194 / 1194 1464 / 1464 2781 / 2781
Output Total 2300 / 2300 3490 / 3490 5900 / 5900 50 / 50
Balance -1106 / -1106 -2026 / -2026 -3119 / -3119 -50 / -50
Physical Exam
Physical Exam
General: Well developed, well nourished in NAD.
Neck: Supple, no JVD, HJR, carotids +2 B/L, no bruits bilaterally.
Heart: Non displaced PMI, irregular, no murmurs, No S3, S4, no rubs.
Lungs: Scattered rhonchi
Abdomen: Distended
Extremities: No clubbing, cyanosis or edema bilaterally.
Neuro: Grossly nonfocal, awake, alert and oriented x3.
--- NOTE | 2023-10-28 10:32 | PTCARENOTE ---
Pt received from school adjustment counselor RN. Pt is Ox3, TUNUNAK and somewhat depressed. Discussed with him the positive changes that he's seen which seemed to make him feel better. updated. Afib in the 90's, +2 generalized edema. Occasional moist cough.
Currently on 1L NC with a 93% sat while asleep. Breath sounds with rhonchi throughout. Celaya in place draining clear yellow urine. Pt immediately started to diurese after receiving IV Lasix. Midline ABD incision intact with some old marked shadowing
on the AC. Stoma budded and purple in coloring. Surgery aware. Call zamora within reach. Pt makes needs known.
--- NOTE | 2023-10-28 10:57 | CHAP ---
Mr. Younger was awake - welcomed my visit. He said it's been long, and he's eager to get home. He asked for prayer. Emotional and spiritual support provided.
[2023-10-28] MEDS: KCL 270 MEQ IV (11:20)
[2023-10-28] MEDS: LANTUS 0.18 UNITS SC (11:20)
[2023-10-28 12:14] LABS: Glucose - Point of Care 207 mg/dl (70-99)
--- NOTE | 2023-10-28 12:22 | W.PN.GS2 ---
Addendum entered and electronically signed by Justin Willard MD 10/28/23 19:36:
I saw and examined the patient.
The TAILING MACHINE OPERATOR's note was reviewed and I agree with the note.
Original Note:
Today's Communication / Plan
-
Trial of clears
Continue TPN
Assessment / Plan
-
73 yo male with h/o of AFIB on Eliquis presenting with abdominal pain with fecal impaction on initial CT, disimpacted in ED but without relief in pain. Taken to the OR emergently on 10/15 as he clinically deteriorated with increasing abdominal pain.
POD #12 s/p ex lap with subtotal colectomy in a damage control operation
POD #8 s/p segmental sigmoid resection, end ileostomy and abd wound closure
POD#3 s/p ex lap, washout hematoma; revision of end ileostomy for ischemia
AFVSS
leukocytosis still present
some blood in appliance but no active bleeding noted at mucosal edges
acute anemia present but relatively stable, s/p transfusion of one unit on 10/27/23
await more robust bowel recovery
hypomagnesemia
Plan: Trial of clears
TPN renewed, adjusted nonprotein calories for management of hyperglycemia with yesterday's bag with good effect: will continue with adjustments to electrolytes given labs and active diuresis
if persistent nausea/recurrent vomiting or worsening abdominal distention strongly consider NGT placement
continue PPI BID
doxy and Zosyn - ID following
diabetic management as per diabetes TAILING MACHINE OPERATOR
analgesics/antiemetics as needed
continue silva until more recovered from surgery
hold therapeutic AC until H&H stable
Subjective Data
-
Date of Service: October 28, 2023
Patient seen and examined at bedside with Dr. Willard. Tateies n/v. Notes he has not had much pain. Still feels very tired.
Objective Data
-
Intake and Output
10/27/23 10/28/23 10/29/23
06:59 06:59 06:59
Intake Total 1464 / 1464 2781 / 2781 670 / 670
Output Total 3490 / 3490 5900 / 5900 1949
Balance -2026 / -2026 -3119 / -3119 -1280 / -1280
Intake:
Oral fluids 0 / 0 360 / 360
IV piggybacks 400 / 400 910 / 910 670 / 670
TPN/PPN 564 / 564 1261 / 1261
Blood products 250 / 250
Blood Product Amount Infused ( 250 / 250 250 / 250
mL)
Packed Rbc Leukoreduced Unit 250 / 250
[id number]
Packed Rbc Leukoreduced Unit 250 / 250
[id number]
Output:
Liquid stool amount 120 / 120 200 / 200
Ileostomy 120 / 120 200 / 200
Urine, Silva 3370 / 3370 5700 / 5700 1949
Other:
Number of immeasurable emeses? 3
Vital Signs
Temp Pulse Resp BP Pulse Ox
97.9 F 95 17 123/81 93
10/28/23 07:00 10/28/23 08:44 10/28/23 06:00 10/28/23 08:44 10/28/23 10:28
Lab Results
10/28/23 05:47
Calcium 8.1 mg/dl (8.4-10.2) L 10/28/23 05:47
Phosphorus 3.2 mg/dl (2.5-4.5) 10/28/23 05:47
Magnesium 1.6 mg/dl (1.6-2.3) 10/28/23 05:47
Total Bilirubin 0.9 mg/dl (0.2-1.3) 10/28/23 05:47
Direct Bilirubin 0.2 mg/dl (0.0-0.4) 10/26/23 06:11
AST 34 U/L (17-59) 10/28/23 05:47
ALT 21 U/L (0-50) 10/28/23 05:47
Alkaline Phosphatase 59 U/L (38-126) 10/28/23 05:47
Total Protein 4.7 g/dl (6.3-8.2) L 10/28/23 05:47
Albumin 2.3 g/dl (3.5-5.0) L 10/28/23 05:47
Physical Exam
-
NAD AAOx3
ABD: softly distended, NT, no R/R/G
R sided ostomy pink/dusky russell, not retracted, functioning - succus fluid/blood in appliance, some small amount of gas, no active bleeding seen at mucosal edges
Incision with intact dressing, no shadowing
[2023-10-28] MEDS: NOVOLOG FLEXPEN-HIGH RESISTANCE 4 UNITS SC (13:41)
[2023-10-28] MEDS: FERRLECIT 110 MG IV (13:41)
[2023-10-28 17:59] LABS: Glucose - Point of Care 173 mg/dl (70-99)
[2023-10-28] MEDS: FLOMAX 0.4 MG PO (18:16)
[2023-10-28 18:38] LABS: Hematocrit 27.2 % (39.0-52.0); Hemoglobin 8.9 g/dL (13.0-18.0)
[2023-10-28] MEDS: MUCINEX 1200 MG PO (20:26)
[2023-10-28] MEDS: PROTONIX 40 MG PO (20:26)
[2023-10-28] MEDS: Parenteral Nutrition, Central 1360 IV (21:40)
[2023-10-29] VITALS (14 sets, daily range): BP systolic 116–152; BP diastolic 85–112; PULSE 108; O2SAT 94; BMI 28.7
[2023-10-29] MEDS: LOPRESSOR 2.5 MG IV ×4 (00:04→23:46)
[2023-10-29] MEDS: NOVOLOG FLEXPEN 10 UNITS SC ×5 (00:05→23:47)
[2023-10-29] MEDS: NOVOLOG FLEXPEN-HIGH RESISTANCE 2 UNITS SC ×3 (00:05→23:47)
[2023-10-29 00:15] LABS: Glucose - Point of Care 175 mg/dl (70-99)
[2023-10-29] MEDS: ZOSYN 100 IV ×4 (04:03→22:35)
[2023-10-29 04:54] LABS: % Basophils 0.4 % (0-2); % Eosinophils 1.5 % (0-6); % Immature Granulocytes 0.8 % (0-0.5); % Lymphocytes 5.5 % (20.5-51.1); % Monocytes 8.9 % (1.7-9.3); % Neutrophils 82.9 % (42.2-75.2); Absolute Basophils 0.1 10^3/uL (0-0.2); Absolute Eosinophils 0.2 10^3/uL (0-0.7); Absolute Immature Granulocytes 0.1 10^3/uL (0-0.05); Absolute Lymphocytes 0.8 10^3/uL (1.2-3.4); Absolute Monocytes 1.3 10^3/uL (0.1-0.6); Absolute Neutrophils 12.4 10^3/uL (1.4-6.5); Hematocrit 26.2 % (39.0-52.0); Hemoglobin 8.5 g/dL (13.0-18.0); Mean Corp Hgb Conc. 32.4 g/dL (33.0-37.0); Mean Corpuscular Hgb 31.8 pg (27.0-31.0); Mean Corpuscular Volume 98.1 fL (80.0-94.0); Mean Platelet Volume 9.6 fL (7.4-10.4); Nucleated Red Blood Cells % 0 % (-); Platelet Count 367 10^3/uL (130-400); Red Blood Cell Count 2.67 10^6/uL (4.70-6.10); Red Cell Dist. Width 15.2 % (11.5-14.5); White Blood Cell Count 14.9 10^3/uL (4.8-10.8)
[2023-10-29] MEDS: NOVOLOG FLEXPEN-HIGH RESISTANCE 7 UNITS SC (05:42)
[2023-10-29 05:49] LABS: Glucose - Point of Care 252 mg/dl (70-99)
[2023-10-29 06:32] LABS: ALT (SGPT) 20 U/L (0-50); AST (SGOT) 29 U/L (17-59); Albumin 2.3 g/dl (3.5-5.0); Alkaline Phosphatase 66 U/L (38-126); Blood Urea Nitrogen 31 mg/dl (9-20); Calcium 8.2 mg/dl (8.4-10.2); Carbon Dioxide 34 mmol/L (22-30); Chloride 95 mmol/L (98-107); Estimated Creatinine Clearance > 125 ml/min; Glucose 250 mg/dl (70-99); Magnesium 1.8 mg/dl (1.6-2.3); Phosphorus 2.9 mg/dl (2.5-4.5); Potassium 4.1 mmol/L (3.5-5.1); Sodium 136 mmol/L (135-145); Total Bilirubin 0.7 mg/dl (0.2-1.3); Total Protein 4.9 g/dl (6.3-8.2); eGFR > 60.00
--- NOTE | 2023-10-29 07:20 | W.PN.HOSP.TC ---
Today's Communication/Plan
-
diet TPN as per surgery
rate conrol as per Cardio
Glycemic control
hep gtt resumed
monitor H&H
Assessment / Plan
Assessment / Plan
Physical Exam
General: No Apparent Distress
HEENT: Normocephalic
Cardiac: Irregularly Irregular S1/S2
GI: Soft nontender ostomy present
Genito-urinary: Celaya
Neuro: AO x 3
Psych: Calm
73M afib HTN DM here for septic shock ischemic bowel s/p bowel resection ostomy creation.
Acute surgical abdomen with stercoral colitis with severe ischemic bowel
-Septic shock POA resolved; off pressors, s/p stress dose steroids
- downgraded from ICU to GMF later upgraded back to IMU as below
- s/p disimpaction in ER
- clinically unstable emergent OR 10/14: ex lap, subtotal colectomy for mesenteric ischemia, ischemic colon
- s/p OR 10/17: exploratory laparotomy, partial colectomy (sigmoid), creation end ileostomy
- empiric Ceftriaxone/Flagyl switched to zosyn and Doxycycline as per ID
- PPI BID
- TPN per GS
Persistent Elevating Leukocytosis despite extended course IV abx as above
-Repeat CT abd/pelvis noted ascites possible cirrhosis moderate to severe subcutaneous edema.
-IR eval requested for diagnostic/therapeutic paracentesis however noted ascites too small as per IR review of imaging
-Surgery noted ischemic stoma 10/24 performed repeat Exploratory Laparotomy Small Bowel Resection Creation End ileostomy
-Ascites was noted to be old blood as seen during above repeat surgical exploration, hematoma washout performed
-ID eval appreciated
-BNP elevated, ECHO noted preserved EF 60-65% no significant change from prior ECHO 2020
-empiric Lasix started for acute HFpEF vs iatrogenic Fluid Overload
-cardio eval appreciated
-post-op ileus nausea hiccups, patient briefly strict NPO post procedure, symptoms subsequently improved, gradually advanced to FLD as per surgery
Acute Blood Loss Anemia following repeat procedure as above
Iron Deficiency
Anemia of Chronic disease
-total 2PRBC transfusions with Lasix since above procedure 10/24
-IV Iron supplementation started, eventual transition to PO
Community acquired PNA, LLL
Vent dependent respiratory failure
- extubated 10/18
- wean O2 as tolerated
- empiric Ceftriaxone/Flagyl completed, on zosyn and Doxycycline as per ID
JOSE from septic shock resolved
Acute metabolic acidosis
- monitor renal function
- monitor labs while on TPN
A. Fib with RVR
- likely driven by septic shock
- monitor rates; transitioned to PO Metoprolol 25mg q6h further transitioned to long acting 50 mg BID, switched to scheduled IV metoprolol due to strict NPO as above
- IV Heparin gtt on hold due to acute blood loss anemia post-procedure as above, since resumed with stable H&H
-Cardio eval appreciated
Hypernatremia resolved
Mild transaminitis
resolved
Hx of Essential HTN
- holding JORY/HCTZ
-started on Lasix as above
Type 2 DM
- holding Metformin
- completed critical care insulin protocol
- continue SSI
- Diabetes FIRE MANAGEMENT SPECIALIST following
Hx of COPD
Former tobacco use disorder with [id number] history, quit about 15 years ago
Hypokalemia
Hypophosphatemia
- monitor and replete as necessary
Urinary retention
- continue Flomax
- Celaya catheter, eventual trial of void
10/25 mild Testicular Ecchymosis Painless, likely superficial bruising healing
scrotal US appreciated no acute abn's
PT/OT appreciated Acute Rehab
DVT ppx: SCDs
Code: DNR
I spent a total of 50 minutes with the patient or on the floor. More than 50% of this time involved counseling and coordination of care.
Anticipated Discharge: > 48 hours
Subjective/Interval History
-
Date of Service: October 29, 2023
No acute distress. Tolerating diet though appetite is poor. Understandably frustrated with length of stay.
Objective Data
-
Labs:
Laboratory Results
10/29/23 10/29/23
04:09 05:34
WBC 14.9 H
Hgb 8.5 L
Hct 26.2 L
Plt Count 367
Sodium Cancelled 136
Potassium Cancelled 4.1
Chloride Cancelled 95 L
Carbon Dioxide Cancelled 34 H
BUN Cancelled 31 H
Creatinine Cancelled 0.6 L
Glucose Cancelled 250 H
Calcium Cancelled 8.2 L
Total Bilirubin Cancelled 0.7
AST Cancelled 29
ALT Cancelled 20
Alkaline Phosphatase Cancelled 66
Vital Signs:
Vital Signs
Temp Pulse Resp BP Pulse Ox
98.3 F 96 20 152/99 97
10/29/23 05:35 10/29/23 06:00 10/29/23 06:00 10/29/23 06:00 10/29/23 06:00
I&O
10/28/23 10/29/23 10/30/23
06:59 06:59 06:59
Intake Total 2781 / 2781 1983 / 1983
Output Total 5900 / 5900 3275 / 3275
Balance -3119 / -3119 -1291 / -1291
[2023-10-29] MEDS: DESENEX/MITRAZOL/ZEASORB 1 APPLIC TOPICAL ×2 (08:13→21:15)
[2023-10-29] MEDS: LASIX 40 MG IV (08:13)
[2023-10-29] MEDS: VIBRAMYCIN 260 MG IV ×2 (08:14→21:15)
[2023-10-29] MEDS: MUCINEX 1200 MG PO ×2 (08:14→21:09)
[2023-10-29] MEDS: PROTONIX 40 MG PO ×2 (08:14→21:09)
--- NOTE | 2023-10-29 09:54 | W.PN.GS2 ---
Addendum entered and electronically signed by Justin Willard MD 10/29/23 17:46:
I saw and examined the patient.
The EDUCATION REP's note was reviewed and I agree with the note.
Original Note:
Today's Communication / Plan
-
FLD as tolerated/continue TPN
Assessment / Plan
-
73 yo male with h/o of AFIB on Eliquis presenting with abdominal pain with fecal impaction on initial CT, disimpacted in ED but without relief in pain. Taken to the OR emergently on 10/15 as he clinically deteriorated with increasing abdominal pain.
POD #13 s/p ex lap with subtotal colectomy in a damage control operation
POD #9 s/p segmental sigmoid resection, end ileostomy and abd wound closure
POD#4 s/p ex lap, washout hematoma; revision of end ileostomy for ischemia
AFVSS
leukocytosis still present but trending down
stoma functioning
acute anemia present but relatively stable, s/p transfusion of one unit on 10/27/23
tolerated clears
Plan: Full liquids as tolerated
TPN renewed
continue PPI BID
doxy and Zosyn - ID following
diabetic management as per diabetes EDUCATION REP
analgesics/antiemetics as needed
continue silva until more recovered from surgery, tentative vt in am
OK for heparin gtt no boluses
oob/ambulate as tolerated, PT/OT following
SCD's while in bed
Subjective Data
-
Date of Service: October 29, 2023
Patient seen and examined at bedside. Denies n/v. Tolerating clears, notes the broth here is not very good. Denies pain. Feels very tired. Denies CP or SOB
Objective Data
-
Intake and Output
10/28/23 10/29/23 10/30/23
06:59 06:59 06:59
Intake Total 2781 / 2781 1983
Output Total 5900 / 5900 3275 / 3275
Balance -3119 / -3119 -1291 / -1291
Intake:
Oral fluids 360 / 360 60 / 60
IV fluids (Total) 120 / 120
IV piggybacks 910 / 910 1120 / 1120
TPN/PPN 1261 / 1261 684 / 684
Blood Product Amount Infused ( 250 / 250
mL)
Packed Rbc Leukoreduced Unit 250 / 250
[id number]
Output:
Liquid stool amount 200 / 200 175 / 175
Ileostomy 200 / 200 175 / 175
Urine, Silva 5700 / 5700 3100 / 3100
Vital Signs
Temp Pulse Resp BP Pulse Ox
98.1 F 103 20 141/93 97
10/29/23 07:55 10/29/23 08:14 10/29/23 06:00 10/29/23 08:14 10/29/23 06:00
Lab Results
10/29/23 04:09
10/29/23 05:34
Calcium 8.2 mg/dl (8.4-10.2) L 10/29/23 05:34
Phosphorus 2.9 mg/dl (2.5-4.5) 10/29/23 05:34
Magnesium 1.8 mg/dl (1.6-2.3) 10/29/23 05:34
Total Bilirubin 0.7 mg/dl (0.2-1.3) 10/29/23 05:34
Direct Bilirubin 0.2 mg/dl (0.0-0.4) 10/26/23 06:11
AST 29 U/L (17-59) 10/29/23 05:34
ALT 20 U/L (0-50) 10/29/23 05:34
Alkaline Phosphatase 66 U/L (38-126) 10/29/23 05:34
Total Protein 4.9 g/dl (6.3-8.2) L 10/29/23 05:34
Albumin 2.3 g/dl (3.5-5.0) L 10/29/23 05:34
Physical Exam
-
NAD AAOx3
ABD: softly distended, NT, no R/R/G
R sided ostomy pink/dusky, not retracted, functioning - succus fluid/bile in appliance, some small amount of gas, no active bleeding seen at mucosal edges
Incision with intact dressing, no shadowing
[2023-10-29] MEDS: LANTUS 0.18 UNITS SC (10:11)
--- NOTE | 2023-10-29 10:33 | W.PN.PUL3 ---
Today's Communication / Plan
-
Abx per ID
prn duonebs
Secretion clearance intervention --> continue mucinex
Aspiration precautions
Increase mobility as able; PT/OT rec'd acute rehab upon discharge
Trend leukocytosis and fever curve
Wean down supplemental O2 as tolerated; goal SpO2 >90-94%
Heparin gtt now restarted; trend Hb and monitor for bleeding; ADAT as per surgery; serial abdominal exams
Repeat CXR tomorrow to re-assess lung parenchyma, and ultimatly needs repeat CXR in 4 to 6 weeks to follow pneumonia resolution
Pulmonary service will continue to briefly follow along
Assessment
-
Assessment: 73-year-old male former tobacco smoker with past medical history of A-fib on Eliquis, hypertension, DM type II, BPH, history of COPD and allergic rhinitis who presents with lower abdominal pain, nausea/vomiting. Symptoms started last
night and he reports constipation for few days. Last BM about 3 days ago. Initial vitals in the ER showed he was in rapid A-fib with VR of 139 bpm, afebrile to 98.4 �F, breathing at 27 breaths minute, hypotensive to 76/59, and SpO2 93% on room
air. EKG confirmed A-fib with RVR. Labs showed leukocytosis to 20.4, creatinine 1.5, lactate 7.4, and T. bili 1.7. Blood culture collected. CT abdomen/pelvis showed fecal impaction without evidence for bowel obstruction. CXR showed retrocardiac
opacification concerning for left lower lobe pneumonia. He was given aztreonam/Flagyl in the ER, fentanyl, morphine, total of 3 L NS 0.9% and Zofran. He was admitted to the ICU for close monitoring with critical care services consulted for
additional management/recommendations.
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
-
Pulmonary call back on 10/22/2023 for yeast on the sputum culture from endotracheal aspiration.
Impression:
Yeast on sputum culture
CAP involving LLL
Bilateral pleural effusions due to acute HFpEF
Persistent leukocytosis
Hyperglycemia
Weak cough
-
#Stercoral colitis with severe constipation s/p disimpaction in the ER
Status post expiratory laparotomy/subtotal colectomy-diagnosis bowel ischemia. OR date: 10/15/2023
S/p repeat ex lap with hematoma washout and revision of end ileostomy due to ischemia - OR date 10/25/2023
#Abdominal pain due to above
#Septic shock due to above in the setting of left lower lobe CAP - shock state resolved
#Lactic acidosis - resolved
#CAP involving left lower lobe
#Acute respiratory failure with hypoxia-requiring intubation mechanical ventilation.
Intubated 10/15/2023, extubated 10/19
#JOSE - resolved
#A-fib with RVR - now rate controlled
#Elevated INR
#Transaminitis with elevated T. bili + elevated ALP - now normalized
#Abnormal urinalysis with +1 leukocyte esterase
#Hypertension
#Reported history of COPD
#Former tobacco use disorder with 51-[id number]-cped history, quit about 15 years ago
Plan:
-
From the respiratory perspective overall he has improved since being out of ICU. He is now on room air as of 10/29/2023
Extubated 10/20/2023
Remains afebrile
Noted persistent leukocytosis, albeit improving
Intermittently coughing some phlegm but not excessive. No hemoptysis.
Does not appear toxic
-
Left lower infiltrate could be atelectasis-doubt new pneumonia or worsening pneumonia. 10/22/2019
Less likely Leni as a pathogen at this point. I recommend against starting antifungals at this point. Will need close observation.
-
Currently on Zosyn + PO doxy (both started 10/24) s/p IV Flagyl (10/14 - 10/24), s/p ceftriaxone (10/17 - 10/22) + s/p cefepime (10/14 - 10/17) and lastly s/p micafungin (10/14 - 10/15)
ID on board - defer ABx to them
Continue secretion clearance interventions.
Encourage incentive spirometry
Continue Acapella device + continue mucinex
DuoNebs prn
Diurese as tolerated given pleural effusions and moderate to severe subcutaneous edema with ascites seen on imaging from 10/24/2023
Check CXR tomorrow to re-assess lung parenchyma
-
History of COPD: Not bronchospastic. Continue nebulized bronchodilators
-
Status post exploratory laparotomy, subtotal colectomy on 10/15/2023.
Bowel ischemia involving transverse and descending colon: Noted
Status post colon partial colectomy sigmoid and creation of end ileostomy. 10/18/2023
- Continue with broad-spectrum antibiotics to cover intra-abdominal source as well as pneumonia.
discontinued micafungin 10/17/2019.
Currently on TPN; full liquid diet started today--> ADAT per surgery and monitor for nausea/vomiting
-
Atrial fibrillation
Rate controlled with goal HR<110
Replete K>4, Mg>2
Heparin drip now restarted as of 10/28; previously was on hold due to anemia
Transfuse blood products as needed to keep Hb>7, plt>50k
- he received 1 U PRBC on 10/26 due to Hb 7.1 --> follow up Hb 8.8; he received 1 U PRBC on 10/25 as well with Hb rising from 7.2 --> 7.1
-
DVT ppx: Heparin gtt/SCDs
Diet deferred to surgery; currently on TPN
PPI for GI prophylaxis --> Unclear if he even still needs GI ppx
-
Significantly deconditioned continue physical therapy Occupational Therapy - rec'd acute rehab on discharge
-
DNR status noted
-
Pulmonary will continue to follow for left lower lobe infiltrate + mild hypoxemia.

Data:
CT abdomen/pelvis with IV contrast 10/15/2023:
Findings concerning for fecal impaction.
Large amount of fecal material throughout the colon.
Bilateral too small to characterize hypodense renal lesions likely benign cysts.
Severe atherosclerotic vascular disease.
Solid noncalcified left lower lobe pulmonary nodule. Continued surveillance recommended.
CT Abd/pelvis with IV contrast 10/24/2023:
Status post subtotal colectomy.
Moderate ascites is present in all 4 quadrants, new since prior examination of October 15, 2023. There is no evidence of a focal collection to suggest an abscess.
Bilateral pleural effusions, left slightly greater than right. Adjacent compressive atelectasis within the posterior lower lungs.
Liver contour appears subtly nodular, suggestive of cirrhosis. No evidence of a focal hepatic mass lesion.
The rectum is distended with stool, transverse dimension of 7.9 cm. There is mild perirectal and presacral edema with no significant rectal wall thickening identified.
Moderate to severe subcutaneous edema.
CXR 10/15/2023: Findings suggesting mild left lower lobe pneumonia.
Total time spent today was 35 minutes for this encounter. Time includes reviewing laboratory test/imaging results, reviewing pertinent medical records, obtaining and reviewing medical history, performing an appropriate exam, ordering medications,
tests and procedures. Time also includes documentation of this encounter, coordinating patient care and communicating with other healthcare professionals. Total time does not include separately billed tests performed on this date of service.
Subjective Data
-
Date of Service:
Date of Service: October 29, 2023
Chief Complaint: Pulmonary Follow Up (Pneumonia) and Pneumonia Follow Up
Subjective:
Seen and evaluated today at bedside. He is now on room air, breathing comfortably, saturating 94% with heart rate 96, BP 122/87. Afebrile overnight. He is eager to get out of the hospital. He denies nausea, vomiting, fevers or chills. No
abdominal pain either. Remains on TPN. Heparin drip being restarted this morning (last blood transfusion on 10/27/2023)
Review of Systems
General: Other (Negative unless mentioned above)
Objective Data
Data Reviewed
Vital Signs / I&O / Oxygen:
Vital Signs
Temp Pulse Resp BP Pulse Ox
98.5 F 107 25 139/94 95
10/29/23 15:44 10/29/23 15:40 10/29/23 12:00 10/29/23 15:40 10/29/23 12:00
Intake and Output
10/28/23 10/29/23 10/30/23
06:59 06:59 06:59
Intake Total 2781 / 2781 1983 / 1983 360 / 360
Output Total 5900 / 5900 3275 / 3275 1675 / 1675
Balance -3119 / -3119 -1291 / -1291 -1315 / -1315
SaO2 [CPAP] 95
SaO2 [A/C] 98
SaO2 95
Nasal Cannula flow liters per 1
minute
Physical Exam
General: Respiratory Distress (negative), Comfortable, Chills (negative) and Sweats (negative)
HEENT: Normocephalic and Anicteric
Cardiovascular: S1-S2 and Peripheral Edema (+1 lower extremity edema bilaterally)
Respiratory: Wheeze (n), Crackles (Left base), Rhonchi ([place] bilaterally upon expiration) and Non-Labored Respirations
GI: Soft, Non Distended, Non Tender, Other (Hypoactive bowel sounds) and Other (RLQ ileostomy with dark blood/stool seen in ostomy bag)
Neurology: AO x 3 and Tremors (negative)
Skin: Warm, Dry and Jaundice (negative)
Labs/Micro/Reports
Lab Data
10/29/23 04:09
10/29/23 05:34
Laboratory Results
10/29/23
10:19
APTT 29.6
--- NOTE | 2023-10-29 10:48 | W.PN.ID1 ---
Date of Service
Date of Service: October 29, 2023
Today's Communication
Continue abx.
Assessment / Plan
S/p ex lap with subtotal colectomy for ischemic colitis - 10/15/23
S/p segmental sigmoid resection, end ileostomy and abd wound closure 10/18/23
S/p Exploratory laparotomy, small bowel resection, creation end ileostomy 10/25/23
Anasarca
recent diagnosis of lyme arthritis of R knee - (by outpatient by PCP)
reported penicillin allergy (unknown rxn)
Leukocytosis - persistent
- 10/24 OR report: 2L of old blood in the abdomen, without purulence, cultures were not sent
- if leukocytosis not improving over next few days, could consider limited abd US to assess if sufficient fluid for paracentesis
- continue zosyn
- duration pending course
- if patient becomes febrile then would add micafungin
- continue doxycycline 10/04 through 10/31; 4 week course for lyme arthritis, ceftriaxone was equivalent drug; diagnosis made by PCP
- follow cbc daily, follow clinically
����������������������������������������������������������
Chief Complaint
-: Leukocytosis
Subjective / Review of Systems
Review of Systems: No Fever and No Chills
Vital Signs / Physical Exam
Vital Signs
Vital Signs
Temp Pulse Resp BP Pulse Ox
98.1 F 103 27 141/93 97
10/29/23 07:55 10/29/23 08:14 10/29/23 08:00 10/29/23 08:14 10/29/23 09:55
Physical Exam
Constitutional: No Acute Distress, Comfortable and Non-toxic
Head: Normocephalic
Eyes: Sclera Anicteric
Cardiovascular: Regular Rate and S1/S2; Negative S3/S4, Murmur or Rub
Pulmonary: Clear and Symmetric; Negative Wheezes or Rales
Gastrointestinal: Soft, Non Tender and Non Distended
Extremities: Negative Cyanosis or Erythema
Musculoskeletal: Other (right knee no redness, swelling or tenderness)
Skin: Warm and Dry; Negative Rash or Jaundice
Neurological: Awake and Alert
Lines: PIV and PICC (no erythema, warmth swelling of tenderness)
Objective Data
Lab Data
Lab Results
10/29/23 04:09
10/29/23 05:34
PT 15.3 Sec (11.4-14.6) H 10/26/23 06:11
INR 1.20 10/26/23 06:11
APTT Cancelled 10/25/23 12:30
Estimated Creat Clear > 125 ml/min 10/29/23 05:34
Lactic Acid 1.3 mmol/L (0.7-2.0) 10/25/23 05:27
Total Bilirubin 0.7 mg/dl (0.2-1.3) 10/29/23 05:34
AST 29 U/L (17-59) 10/29/23 05:34
ALT 20 U/L (0-50) 10/29/23 05:34
Alkaline Phosphatase 66 U/L (38-126) 10/29/23 05:34
Most recent labs reviewed.
Micro Results:
10/19/23 13:41 Respiratory Culture - Final
Endotracheal Yeast
Gram Stain - Final
10/15/23 05:43 Blood Culture - Final
Blood/Venous No Growth - Final Report
10/15/23 09:57 Urine Culture - Final
Urine NO GROWTH
[2023-10-29 10:49] LABS: APTT 29.6 Sec (23.4-35.0)
[2023-10-29] MEDS: HEPARIN 25000 UNITS/250 ML IV (10:58)
--- NOTE | 2023-10-29 11:26 | W.PN.CARDCBS ---
Today's Communication / Plan
-
Continue IV Lasix but consider change to oral Lasix in the next 24 hours
Eventually resume Eliquis
Heparin has been restarted
Impression / Plan
-
.
PCP: Dr. Herrera
Cardiology: Dr. Simms, last seen 06/29/22
Impression:
Admitted with stercoral colitis and sepsis 10/15/23
s/p s/p ex lap with subtotal colectomy in a damage control operation 10/15/23
s/p segmental sigmoid resection, end ileostomy and abd wound closure 10/18/23
s/p exploratory lap, small bowel resection, creation end ileostomy, secondary to stoma with necrotic mucosa 10/25/2023
Permanent Afib with RVR
Acute HFpEF
LLL PNA
Leukocytosis
post op anemia
JOSE
Hypernatremia
Hypokalemia
Elevated LFTs
DM 2
COPD
Echo 10/25/23: EF 60-65%, trace MR, aortic sclerosis without stenosis
Plan:
His weight may have plateaued. Weight was 212 pounds on 10/27 and is now 217 pounds.
He is now taking some p.o.'s.
Consider change to oral Lasix in next 24 hours.
Remains in A-fib with reasonable rate control the heart rate is increased at times
Continue IV Lopressor
Resume Anticoagulation/Eliquis once ok with surgery standpoint. Heparin has been resumed
HPI: Patient [facility] with abdominal pain and constipation and was admitted with sepsis and stercoral colitis, cardiology is now consulted for acute HF. Patient came to ER with abdominal pain and constipation and appeared to be septic.
He was started on pressors and later taken to the OR same day for a damage control operation with subtotal colectomy. He returned to the OR 10/18/23 for wound closure and end ileostomy. Patient has received 17.25 liters of IVFs since admission. He is
now allowed sips of water and is receiving TPN. Cardiology is asked to see patient for possible acute HF. His weight is overall up 10 lbs from admission despite NPO and bowel surgery. He denies edema, bloating or SOB. His pro-BNP was 3680 yesterday
and he was started on Lasix 40 mg IV daily. Patient denies chest pain. He has permanent Afib and HRs are rapid, but he denies palpitations. He was not taking a rate controlling med prior to admission, but was started on Toprol XL 50 mg BID
yesterday.
Progress Note - Hardness Inspector
Subjective
Date of Service: October 29, 2023
No complaints.
Objective
Labs:
10/29/23 04:09
10/29/23 05:34
Labs
Hgb 8.5 g/dL (13.0-18.0) L 10/29/23 04:09
Hct 26.2 % (39.0-52.0) L 10/29/23 04:09
Plt Count 367 10^3/uL (130-400) 10/29/23 04:09
PT 15.3 Sec (11.4-14.6) H 10/26/23 06:11
INR 1.20 10/26/23 06:11
APTT 29.6 Sec (23.4-35.0) 10/29/23 10:19
Sodium 136 mmol/L (135-145) 10/29/23 05:34
Potassium 4.1 mmol/L (3.5-5.1) 10/29/23 05:34
BUN 31 mg/dl (9-20) H 10/29/23 05:34
Creatinine 0.6 mg/dL (0.7-1.3) L 10/29/23 05:34
Glucose 250 mg/dl (70-99) H 10/29/23 05:34
Vital Signs and I&O:
Vital Signs
Temp Pulse Resp BP Pulse Ox
98.1 F 103 27 141/93 94
10/29/23 07:55 10/29/23 08:14 10/29/23 08:00 10/29/23 08:14 10/29/23 10:52
Vital Signs
Temp Pulse Resp BP Pulse Ox
98.1 F 103 27 141/93 94
10/29/23 07:55 10/29/23 08:14 10/29/23 08:00 10/29/23 08:14 10/29/23 10:52
Intake & Output
10/27/23 10/28/23 10/29/23 10/30/23
06:59 06:59 06:59 06:59
Intake Total 1464 / 1464 2781 / 2781 1983 / 1983 360 / 360
Output Total 3490 / 3490 5900 / 5900 3275 / 3275 1675 / 1675
Balance -2026 / -2026 -3119 / -3119 -1291 / -1291 -1315 / -1315
Physical Exam
Physical Exam
General: Well developed, well nourished in NAD.
Neck: Supple, no JVD, HJR, carotids +2 B/L, no bruits bilaterally.
Heart: Non displaced PMI, irregular, no murmurs, No S3, S4, no rubs.
Lungs: Scattered rhonchi throughout
Extremities: No clubbing, cyanosis or edema bilaterally.
Neuro: Grossly nonfocal, awake, alert and oriented x3.
[2023-10-29] MEDS: NOVOLOG FLEXPEN-HIGH RESISTANCE 4 UNITS SC (12:11)
[2023-10-29 12:13] LABS: Glucose - Point of Care 220 mg/dl (70-99)
[2023-10-29] MEDS: FERRLECIT 110 MG IV (14:17)
[2023-10-29] MEDS: CATHFLO/ACTIVASE 2 MG INTRACATH (16:26)
--- NOTE | 2023-10-29 17:03 | PTCARENOTE ---
Pt's white port on PICC line without blood return. VAT team used cath flow into line. Instructed not to draw 1700 ptt until cath flow has been flushed.
[2023-10-29 17:58] LABS: Glucose - Point of Care 198 mg/dl (70-99)
[2023-10-29 18:01] LABS: APTT 52.4 Sec (23.4-35.0)
[2023-10-29] MEDS: FLOMAX 0.4 MG PO (18:26)
[2023-10-29] MEDS: Parenteral Nutrition, Central 1360 IV (21:18)
[2023-10-29 23:41] LABS: Glucose - Point of Care 195 mg/dl (70-99)
[2023-10-30] VITALS (18 sets, daily range): BP systolic 115–158; BP diastolic 82–117; PULSE 106; O2SAT 94; BMI 27.9
[2023-10-30 01:13] LABS: APTT 52.8 Sec (23.4-35.0)
[2023-10-30] MEDS: ZOSYN 100 IV ×4 (04:13→21:20)
[2023-10-30 04:21] LABS: % Basophils 0.8 % (0-2); % Eosinophils 1.8 % (0-6); % Immature Granulocytes 1.2 % (0-0.5); % Lymphocytes 6.8 % (20.5-51.1); % Neutrophils 78.4 % (42.2-75.2); Absolute Basophils 0.1 10^3/uL (0-0.2); Absolute Eosinophils 0.3 10^3/uL (0-0.7); Absolute Immature Granulocytes 0.2 10^3/uL (0-0.05); Absolute Monocytes 1.6 10^3/uL (0.1-0.6); Absolute Neutrophils 11.2 10^3/uL (1.4-6.5); Hemoglobin 8.8 g/dL (13.0-18.0); Mean Corp Hgb Conc. 31.4 g/dL (33.0-37.0); Mean Corpuscular Hgb 31.5 pg (27.0-31.0); Mean Corpuscular Volume 100.4 fL (80.0-94.0); Mean Platelet Volume 9.2 fL (7.4-10.4); Nucleated Red Blood Cells % 0 % (-); Platelet Count 380 10^3/uL (130-400); Red Blood Cell Count 2.79 10^6/uL (4.70-6.10); Red Cell Dist. Width 15.2 % (11.5-14.5); White Blood Cell Count 14.3 10^3/uL (4.8-10.8)
[2023-10-30] MEDS: NOVOLOG FLEXPEN 10 UNITS SC (06:08)
[2023-10-30] MEDS: NOVOLOG FLEXPEN-HIGH RESISTANCE 2 UNITS SC ×3 (06:08→17:18)
[2023-10-30 06:19] LABS: Glucose - Point of Care 186 mg/dl (70-99)
[2023-10-30 06:30] LABS: AST (SGOT) 39 U/L (17-59); Albumin 2.5 g/dl (3.5-5.0); Blood Urea Nitrogen 26 mg/dl (9-20); Carbon Dioxide 31 mmol/L (22-30); Estimated Creatinine Clearance > 125 ml/min; Glucose 186 mg/dl (70-99); Total Bilirubin 0.8 mg/dl (0.2-1.3); Total Protein 5.2 g/dl (6.3-8.2); Triglycerides 86 mg/dl (10-149); eGFR > 60.00
[2023-10-30 06:56] LABS: ALT (SGPT) 23 U/L (0-50); Alkaline Phosphatase 77 U/L (38-126); Calcium 8.4 mg/dl (8.4-10.2); Chloride 98 mmol/L (98-107); Magnesium 1.9 mg/dl (1.6-2.3); Potassium 4.1 mmol/L (3.5-5.1); Sodium 134 mmol/L (135-145)
--- NOTE | 2023-10-30 07:27 | PN.DE.MGMTRT ---
Insulin Management
- -
10/30/2023: Diabetes Management F/U:
Patient admitted 10/14 with lower abdominal abdominal pain, N&V. PMH: PAF, HTN, COPD, BPH, former tobacco smoker T2DM and allergic rhinitis.
CT A/P-->Stercoral colitis with severe constipation s/p disimpaction in the ER, s/p ex lap with subtotal colectomy- due to severe ischemic bowel on 10/15/2023. Noted for Septic shock requiring multiple pressors, LLL Community acquired PNA and Vent
dependent respiratory failure.
Prior to admission, pt was taking Metformin 500mg BID. Current A1C 6.2%.
Pt awake, A/O x3, sitting up in bed, pleasant, offers no complaints, able to discuss diabetes mgt.
POD #14 s/p subtotal colectomy, POD #12 s/p segmented sigmoid resection and POD # 5 washout of hematoma revision of end ileostomy.
Remains on TPN. Was started on full liquid diet over the weekend, contributing to persistent Hyperglycemia, range 198 to 252, requiring additional corrective insulin.
Will increase Q6 hour NovoLog to 12 units and Lantus to 20 units in am @10. Cont High corrective insulin Q 6 hours .
Will follow for further needed adjustments if TPN rate is reduced since he is now on oral intake.
Diabetes History
- -
Type of Diabetes: 2
Pre-Admission Diabetes Regimen
10/30/23 10/30/23
04:12 05:37
Creatinine Cancelled 0.6 L
Lab Results
Hemoglobin A1c 6.2 % (4.0-5.6) H 10/16/23 03:28
Insulin Pump Settings
IP Diabetes Regimen
10/29/23 10/29/23 10/29/23
12:02 17:47 23:29
Glucose
POC Glucose 220 H 198 H 195 H
10/30/23 10/30/23 10/30/23
04:12 05:37 06:07
Glucose Cancelled 186 H
POC Glucose 186 H
Meal type: Lunch
Amount consumed: 50%
Patient Education
[2023-10-30] MEDS: LOPRESSOR 2.5 MG IV ×3 (07:48→23:33)
[2023-10-30] MEDS: LASIX 40 MG IV (07:49)
[2023-10-30] MEDS: PROTONIX 40 MG PO ×2 (07:50→19:58)
[2023-10-30] MEDS: MUCINEX 1200 MG PO ×2 (07:50→19:58)
[2023-10-30] MEDS: VIBRAMYCIN 260 MG IV (08:00)
[2023-10-30 08:13] LABS: APTT 71.1 Sec (23.4-35.0)
--- NOTE | 2023-10-30 08:35 | PTCARENOTE ---
received pt from material handler 1st shift. AAOx3. afib on monitor. Heparin gtt running @ 15 mL/hr, increased due to recent PTT (see worklist). TPN @ 57 mL/hr. both running through R tripple lumen PICC. Stoma appears purple/black. Dark liquid stool. Wound care
nurse and provider notified. abdominal surgical dressing clean, dry, and intact. Celaya in place and hygiene completed. Productive cough at times, suction @ bedside for pt to utilize. pt resting in bed with call zamora in reach.
--- NOTE | 2023-10-30 09:29 | W.PN.PUL.V3 ---
Today's Communication / Plan
-
Antibiotics
Nutrition per surgery-full liquids and TPN
Chest x-ray improved
Assessment
-
Assessment: 73-year-old male former tobacco smoker with past medical history of A-fib on Eliquis, hypertension, DM type II, BPH, history of COPD and allergic rhinitis who presents with lower abdominal pain, nausea/vomiting. Symptoms started last
night and he reports constipation for few days. Last BM about 3 days ago. Initial vitals in the ER showed he was in rapid A-fib with VR of 139 bpm, afebrile to 98.4 �F, breathing at 27 breaths minute, hypotensive to 76/59, and SpO2 93% on room
air. EKG confirmed A-fib with RVR. Labs showed leukocytosis to 20.4, creatinine 1.5, lactate 7.4, and T. bili 1.7. Blood culture collected. CT abdomen/pelvis showed fecal impaction without evidence for bowel obstruction. CXR showed retrocardiac
opacification concerning for left lower lobe pneumonia. He was given aztreonam/Flagyl in the ER, fentanyl, morphine, total of 3 L NS 0.9% and Zofran. He was admitted to the ICU for close monitoring with critical care services consulted for
additional management/recommendations.
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
-
Pulmonary call back on 10/22/2023 for yeast on the sputum culture from endotracheal aspiration.
Impression:
Yeast on sputum culture
CAP involving LLL
Bilateral pleural effusions due to acute HFpEF
Persistent leukocytosis
Hyperglycemia
Weak cough
-
#Stercoral colitis with severe constipation s/p disimpaction in the ER
Status post expiratory laparotomy/subtotal colectomy-diagnosis bowel ischemia. OR date: 10/15/2023
S/p repeat ex lap with hematoma washout and revision of end ileostomy due to ischemia - OR date 10/25/2023
#Abdominal pain due to above
#Septic shock due to above in the setting of left lower lobe CAP - shock state resolved
#Lactic acidosis - resolved
#CAP involving left lower lobe
#Acute respiratory failure with hypoxia-requiring intubation mechanical ventilation.
Intubated 10/15/2023, extubated 10/19
#JOSE - resolved
#A-fib with RVR - now rate controlled
#Elevated INR
#Transaminitis with elevated T. bili + elevated ALP - now normalized
#Abnormal urinalysis with +1 leukocyte esterase
#Hypertension
#Reported history of COPD
#Former tobacco use disorder with [id number] history, quit about 15 years ago
Plan:
Respiratory status relatively stable
Supplemental oxygen as needed-currently on room air
Tolerated extubation 10/20/2023
Aspiration precautions
Incentive spirometry
Mucus clearing devices
Nebulizers as needed-currently not bronchospastic
Mucolytic's
Chest x-ray 10/30/2023-decrease in left lower lobe opacifications, no evidence for CHF
Cultures reviewed
Sputum 10/19/2023 with yeast
Infectious disease following
Follow leukocytosis
Antibiotics and antifungals if needed per infectious disease-currently on Zosyn and doxycycline
s/p ceftriaxone (10/17 - 10/22) + s/p cefepime (10/14 - 10/17) and lastly s/p micafungin (10/14 - 10/15)
Status post exploratory laparotomy, subtotal colectomy on 10/15/2023.
Bowel ischemia involving transverse and descending colon: Noted
Status post colon partial colectomy sigmoid and creation of end ileostomy 10/18/2023
Continue with broad-spectrum antibiotics to cover intra-abdominal source as well as pneumonia.
Discontinued micafungin 10/17/2019.
Currently on TPN; full liquid diet started today--> ADAT per surgery and monitor for nausea/vomiting
Atrial fibrillation rate control
Echocardiogram 11/13-EF 60-65%, trace mitral regurgitation, mildly dilated right atrium, aortic sclerosis without stenosis, rhythm rapid atrial fibrillation
Replete electrolytes
Heparin drip
Follow hemoglobin and platelet count
Transfuse as needed
DVT prophylaxis-on heparin
GI prophylaxis-on pantoprazole
Nutrition per surgery
Physical/Occupational Therapy
DNR status noted
Outpatient pulmonary follow-up

Data:
CT abdomen/pelvis with IV contrast 10/15/2023:
Findings concerning for fecal impaction.
Large amount of fecal material throughout the colon.
Bilateral too small to characterize hypodense renal lesions likely benign cysts.
Severe atherosclerotic vascular disease.
Solid noncalcified left lower lobe pulmonary nodule. Continued surveillance recommended.
CT Abd/pelvis with IV contrast 10/24/2023:
Status post subtotal colectomy.
Moderate ascites is present in all 4 quadrants, new since prior examination of October 15, 2023. There is no evidence of a focal collection to suggest an abscess.
Bilateral pleural effusions, left slightly greater than right. Adjacent compressive atelectasis within the posterior lower lungs.
Liver contour appears subtly nodular, suggestive of cirrhosis. No evidence of a focal hepatic mass lesion.
The rectum is distended with stool, transverse dimension of 7.9 cm. There is mild perirectal and presacral edema with no significant rectal wall thickening identified.
Moderate to severe subcutaneous edema.
CXR 10/15/2023: Findings suggesting mild left lower lobe pneumonia.
Subjective Data
-
Date of Service:
Date of Service: October 30, 2023
Chief Complaint: Pulmonary Follow Up (Pneumonia) and Pneumonia Follow Up
Subjective:
Did not sleep well, no complaints of worsening shortness of breath, on room air, no chest pain, productive cough or abdominal pain
Review of Systems
General: Other (Per HPI)
Objective Data
Data Reviewed
Vital Signs / I&O:
Vital Signs
Temp Pulse Resp BP Pulse Ox
98.3 F 114 21 153/95 94
10/30/23 04:31 10/30/23 07:49 10/29/23 16:00 10/30/23 07:49 10/30/23 02:57
Intake and Output
10/29/23 10/30/23 10/31/23
06:59 06:59 06:59
Intake Total 1983 / 1983 1494 / 1494
Output Total 3275 / 3275 3675 / 3675
Balance -1291 / -1291 -2181 / -2181
SaO2: 94
Nasal Cannula flow liters per minute: 1
Physical Exam
General: Respiratory Distress (negative), Comfortable, Chills (negative) and Sweats (negative)
HEENT: Normocephalic, Anicteric and Moist Mucous Membranes
Cardiovascular: Regular Rhythm, Murmur and Peripheral Edema (+1 lower extremity edema bilaterally)
Respiratory: Wheeze (n), Crackles (Left base), Rhonchi (Walsh bilaterally upon expiration) and Non-Labored Respirations
GI: Soft, Non Distended, Non Tender, Other (Hypoactive bowel sounds) and Other (RLQ ileostomy with dark blood/stool seen in ostomy bag)
Neurology: Awake, Alert, No Motor Deficits and Tremors (negative)
Skin: Warm, Good Color, Cyanosis (n), Jaundice (negative) and Rash (n)
Labs/Micro/Reports
Lab Data
10/30/23 04:12
10/30/23 05:37
Laboratory Results
10/29/23 10/29/23 10/30/23
10:19 17:42 00:45
APTT 29.6 52.4 H 52.8 H
10/30/23
07:55
APTT 71.1 H
--- NOTE | 2023-10-30 10:02 | W.PN.GS2 ---
Today's Communication / Plan
-
Advance diet to LRD as tolerated, continue TPN given poor po intake
Hold PO AC, ok for IV ac
Assessment / Plan
-
73 yo male with h/o of AFIB on Eliquis presenting with abdominal pain with fecal impaction on initial CT, disimpacted in ED but without relief in pain. Taken to the OR emergently on 10/15 as he clinically deteriorated with increasing abdominal pain.
POD #14 s/p ex lap with subtotal colectomy in a damage control operation
POD #10 s/p segmental sigmoid resection, end ileostomy and abd wound closure
POD#5 s/p ex lap, washout hematoma; revision of end ileostomy for ischemia
AFVSS
leukocytosis still present but very slowly trending down
stoma functioning but beginning to retract
acute anemia present but stiill stable, s/p transfusion of one unit on 10/27/23
tolerated full liquids but with low intakes
Plan: LRD as tolerated, will continue TPN as PO intake still remains quite low
TPN renewed
continue PPI BID
doxy and Zosyn - ID following
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
analgesics/antiemetics as needed
continue silva until more recovered from surgery, tentative vt in am
OK for heparin gtt no boluses, please hold oral AC at this time
oob/ambulate as tolerated, PT/OT following
stoma nurse following, ok to remove midline dressing with appliance care
SCD's while in bed
Subjective Data
-
Date of Service: October 30, 2023
Patient seen and examined at bedside with Dr. Martin. Edi n/v. Eager to try more food, wants an omelette for breakfast. Denies pain.
Objective Data
-
Intake and Output
10/29/23 10/30/23 10/31/23
06:59 06:59 06:59
Intake Total 1983 1494 / 1494
Output Total 3275 / 3275 3675 / 3675
Balance -1291 / -1291 -2181 / -2181
Intake:
Oral fluids 60 / 60 240 / 240
IV fluids (Total) 120 / 120
IV piggybacks 1120 / 1120 570 / 570
TPN/PPN 684 / 684 684 / 684
Output:
Liquid stool amount 175 / 175
Ileostomy 175 / 175
Urine, Silva 3100 / 3100 3675 / 3675
Vital Signs
Temp Pulse Resp BP Pulse Ox
98.4 F 114 21 153/95 94
10/30/23 07:39 10/30/23 07:49 10/29/23 16:00 10/30/23 07:49 10/30/23 09:29
Lab Results
10/30/23 04:12
10/30/23 05:37
Calcium 8.4 mg/dl (8.4-10.2) 10/30/23 05:37
Phosphorus 3.0 mg/dl (2.5-4.5) 10/30/23 05:37
Magnesium 1.9 mg/dl (1.6-2.3) 10/30/23 05:37
Total Bilirubin 0.8 mg/dl (0.2-1.3) 10/30/23 05:37
Direct Bilirubin 0.2 mg/dl (0.0-0.4) 10/26/23 06:11
AST 39 U/L (17-59) 10/30/23 05:37
ALT 23 U/L (0-50) 10/30/23 05:37
Alkaline Phosphatase 77 U/L (38-126) 10/30/23 05:37
Total Protein 5.2 g/dl (6.3-8.2) L 10/30/23 05:37
Albumin 2.5 g/dl (3.5-5.0) L 10/30/23 05:37
Physical Exam
-
NAD AAOx3
ABD: softly distended, NT, no R/R/G
R sided ostomy dusky, and now slightly retracted, functioning - blood tinged stool in appliance, some small amount of gas, no active bleeding seen at mucosal edges
Incision with intact dressing, no shadowing
[2023-10-30] MEDS: DESENEX/MITRAZOL/ZEASORB 1 APPLIC TOPICAL ×2 (10:28→20:01)
[2023-10-30] MEDS: LANTUS 0.2 UNITS SC (10:28)
[2023-10-30] MEDS: NOVOLOG FLEXPEN 12 UNITS SC ×3 (10:30→21:26)
[2023-10-30 10:36] LABS: Glucose - Point of Care 176 mg/dl (70-99)
--- NOTE | 2023-10-30 12:00 | WOUNDNOTE ---
WON RN NOTE: With assist from nurse Marshall, patient ambulated from chair back to bed with assist of walker. Sacrum remains intact, scrotal improved. Heels remain unchanged, pillow under calves in use. Shefali at bedside, ostomy teaching done
with her and patient. Stoma is greyish brown and moist, edges slightly pink. Photo taken and CATTLE KNOCKER asked to view in computer. Removed midline aquacell dressing as requested by CATTLE KNOCKER Loren, jabari intact, scant drainage. Dry dressing applied to midline
incision. Stoma approximately 1 1/2' only slightly budded, peristomal skin intact. Today appliance changed using 2 3/4' Lisbet 2 piece. Had open and close tail end of pouch, reviewed emptying, skin care, and shown how to snap on pouch to
wafer. Suspect patient will eventually need convexity when appropriate. Will enroll in secure start program and request samples, permission given by family. requesting more Ileostomy information, will bring new folder and review.
--- NOTE | 2023-10-30 12:11 | WOUNDNOTE ---
ILEOSTOMY AND MIDLINE INCISION
--- NOTE | 2023-10-30 12:45 | W.PN.ID1 ---
Date of Service
Date of Service: October 30, 2023
Today's Communication
Continue Zosyn for now.
Assessment / Plan
S/p ex lap with subtotal colectomy for ischemic colitis - 10/15/23
S/p segmental sigmoid resection, end ileostomy and abd wound closure 10/18/23
S/p Exploratory laparotomy, small bowel resection, creation end ileostomy 10/25/23
Anasarca
recent diagnosis of lyme arthritis of R knee - (by outpatient by PCP)
reported penicillin allergy (unknown rxn)
Leukocytosis - slowly trending down
- 10/24 OR report: 2L of old blood in the abdomen, without purulence, cultures were not sent
- if leukocytosis not improving over next few days, could consider limited abd US to assess if sufficient fluid for paracentesis
- continue zosyn
- duration pending course
- continue doxycycline 10/04 through 10/31; 4 week course for lyme arthritis, ceftriaxone was equivalent drug; diagnosis made by PCP
- follow cbc daily, follow clinically
����������������������������������������������������������
Chief Complaint
-: Leukocytosis
Subjective / Review of Systems
No complaints. No abd pain.
Vital Signs / Physical Exam
Vital Signs
Vital Signs
Temp Pulse Resp BP Pulse Ox
98.8 F 114 21 153/95 94
10/30/23 11:41 10/30/23 07:49 10/29/23 16:00 10/30/23 07:49 10/30/23 09:29
Physical Exam
Constitutional: No Acute Distress and Comfortable
Pulmonary: Clear
Gastrointestinal: Soft, Non Tender, Non Distended, Normal Bowel Sounds and Other (ileostomy: stoma black)
Neurological: AO x 3
Objective Data
Lab Data
Lab Results
10/30/23 04:12
10/30/23 05:37
PT 15.3 Sec (11.4-14.6) H 10/26/23 06:11
INR 1.20 10/26/23 06:11
APTT 71.1 Sec (23.4-35.0) H 10/30/23 07:55
Estimated Creat Clear > 125 ml/min 10/30/23 05:37
Lactic Acid 1.3 mmol/L (0.7-2.0) 10/25/23 05:27
Total Bilirubin 0.8 mg/dl (0.2-1.3) 10/30/23 05:37
AST 39 U/L (17-59) 10/30/23 05:37
ALT 23 U/L (0-50) 10/30/23 05:37
Alkaline Phosphatase 77 U/L (38-126) 10/30/23 05:37
Most recent labs reviewed.
Micro Results:
10/19/23 13:41 Respiratory Culture - Final
Endotracheal Yeast
Gram Stain - Final
10/15/23 05:43 Blood Culture - Final
Blood/Venous No Growth - Final Report
10/15/23 09:57 Urine Culture - Final
Urine NO GROWTH
--- NOTE | 2023-10-30 13:19 | W.PN.HOSP.TC ---
Today's Communication/Plan
-
LRD + TPN
continue IV Abx per ID
continue IV heparin
Assessment / Plan
Assessment / Plan
Assessment:
Acute surgical abdomen with stercoral colitis with severe ischemic bowel
Septic shock POA resolved; off pressors, s/p stress dose steroids
- s/p disimpaction in ER
- clinically unstable emergent OR 10/14: ex lap, subtotal colectomy for mesenteric ischemia, ischemic colon
- s/p OR 10/17: exploratory laparotomy, partial colectomy (sigmoid), creation end ileostomy
- s/p 10/24: Exploratory laparotomy, small bowel resection, creation end ileostomy (due to necrosis at prior ostomy site)
- continue Zosyn per ID
- diet LRD, TPN per GS
- continue PPI BID
Persistent Elevating Leukocytosis despite extended course IV abx as above
- Repeat CT abd/pelvis noted ascites possible cirrhosis moderate to severe subcutaneous edema.
- IR eval requested for diagnostic/therapeutic paracentesis however noted ascites too small as per IR review of imaging
- Ascites was noted to be old blood as seen during above repeat surgical exploration, hematoma washout performed
- ID eval appreciated
- BNP elevated, ECHO noted preserved EF 60-65% no significant change from prior ECHO 2020
- empiric Lasix started for acute HFpEF vs iatrogenic Fluid Overload
- cardio eval appreciated
- post-op ileus nausea hiccups, patient briefly strict NPO post procedure, symptoms subsequently improved, gradually advanced to FLD as per surgery
Acute Blood Loss Anemia following repeat procedure as above
Iron Deficiency
Anemia of Chronic disease
- total 2PRBC transfusions with Lasix since above procedure 10/24
- IV Iron supplementation started, eventual transition to PO
Community acquired PNA, LLL
Vent dependent respiratory failure
- extubated 10/18
- wean O2 as tolerated
- continue Zosyn per ID
JOSE from septic shock resolved
Acute metabolic acidosis
- monitor renal function
- monitor labs while on TPN
A. Fib with RVR
- likely driven by septic shock
- monitor rates; transitioned to PO Metoprolol 25mg q6h further transitioned to long acting 50 mg BID, switched to scheduled IV metoprolol due to strict NPO as above
- continue IV heparin drip which requires intensive monitoring
- cardio eval appreciated
Lyme arthritis
- continue Doxycycline through 10/31
Hypernatremia resolved
Mild transaminitis
- resolved
Hx of Essential HTN
- holding JORY/HCTZ
- started on Lasix as above
Type 2 DM
- holding Metformin
- completed critical care insulin protocol
- continue SSI
- Diabetes STRATIGRAPHER following
Hx of COPD
Former tobacco use disorder with [id number] history, quit about 15 years ago
Hypokalemia
Hypophosphatemia
- monitor and replete as necessary
Urinary retention
- continue Flomax
- Celaya catheter, eventual trial of void
10/25 mild Testicular Ecchymosis Painless, likely superficial bruising healing
- scrotal US appreciated no acute abn's
PT/OT appreciated Acute Rehab
DVT ppx: IV Heparin drip
Code: DNR
Anticipated Discharge: > 48 hours
Subjective/Interval History
-
Date of Service: October 30, 2023
now on LRD, TPN continues
no complaints
Objective Data
-
Labs:
Laboratory Results
10/30/23 10/30/23 10/30/23
00:45 04:12 05:37
WBC 14.3 H
Hgb 8.8 L
Hct 28.0 L
Plt Count 380
APTT 52.8 H
Sodium Cancelled 134 L
Potassium Cancelled 4.1
Chloride Cancelled 98
Carbon Dioxide Cancelled 31 H
BUN Cancelled 26 H
Creatinine Cancelled 0.6 L
Glucose Cancelled 186 H
Calcium Cancelled 8.4
Total Bilirubin Cancelled 0.8
AST Cancelled 39
ALT Cancelled 23
Alkaline Phosphatase Cancelled 77
10/30/23 10/30/23
07:55 14:25
WBC
Hgb
Hct
Plt Count
APTT 71.1 H Pending
Sodium
Potassium
Chloride
Carbon Dioxide
BUN
Creatinine
Glucose
Calcium
Total Bilirubin
AST
ALT
Alkaline Phosphatase
Vital Signs:
Vital Signs
Temp Pulse Resp BP Pulse Ox
98.8 F 114 21 153/95 94
10/30/23 11:41 10/30/23 07:49 10/29/23 16:00 10/30/23 07:49 10/30/23 09:29
I&O
10/29/23 10/30/23 10/31/23
06:59 06:59 06:59
Intake Total 1983 1494 / 1494
Output Total 3275 / 3275 3675 / 3675
Balance -1291 / -1291 -2181 / -2181
Physical Exam
-
General: No Apparent Distress
HEENT: Normocephalic
Respiratory: Negative Wheezes
Cardiac: Regular Rhythm and S1/S2
GI: Soft and Ostomy
Genito-urinary: No Costovertebral Tender
Musculoskeletal: No Edema
Neuro: AO x 3
Data Reviewed
-
Total Time Spent with Patient (in minutes): 51
Labs: Labs Reviewed by me
--- NOTE | 2023-10-30 13:24 | W.PN.CARDCBS ---
Addendum entered and electronically signed by Ziggy Simms MD 10/30/23 16:36:
I saw and examined the patient.
The FORCE ADJUSTMENT SUPERVISOR or PA's note was reviewed and I agree with the note.
Comment: General: Well developed, well nourished in NAD.
Neck: Supple, no JVD, HJR, carotids +2 B/L, no bruits bilaterally.
Heart: Non displaced PMI, Irregular, no murmurs, No S3, S4, no rubs.
Lungs: Scattered rhonchi
Extremities: No clubbing, cyanosis or edema bilaterally.
Neuro: Grossly nonfocal, awake, alert and oriented x3.
Stable cardiology status. Will change to oral Lasix in a.m. Rate control reasonable in A-fib. Eventual change of heparin to Eliquis when okay with surgery
Original Note:
Today's Communication / Plan
-
Change to PO Lasix starting in AM
Impression / Plan
-
PCP: Dr. Herrera
Cardiology: Dr. Simms, last seen 06/29/22
Impression:
Admitted with stercoral colitis and sepsis 10/15/23
s/p s/p ex lap with subtotal colectomy in a damage control operation 10/15/23
s/p segmental sigmoid resection, end ileostomy and abd wound closure 10/18/23
s/p exploratory lap, small bowel resection, creation end ileostomy, secondary to stoma with necrotic mucosa 10/25/2023
Permanent Afib with RVR
Acute HFpEF
LLL PNA
Leukocytosis
post op anemia
JOSE
Hypernatremia
Hypokalemia
Elevated LFTs
DM 2
COPD
Echo 10/25/23: EF 60-65%, trace MR, aortic sclerosis without stenosis
Plan:
-Weight peaked at 237 lbs on 10/21/23 and is down to 211 lbs on 10/30/23 with Lasix 40 mg IV daily plus he remains on a limited diet.
-Change Lasix to 40 mg PO daily on 10/31/23. Patient was taking HCTZ 25 mg daily as part of lisinopril/HCTZ combo pill prior to admission, but HCTZ now stopped. JORY has not been restarted.
-EF preserved by echo 10/25/23
-Patient was not taking BB prior to admission, but Toprol XL was added this admission prior to additional operations and now is ordered Lopressor 2.5 mg IV q 8 hours.
-Afib is permanent and previously rate controlled without meds prior to admission
-Eliquis has been on hold since admission. Heparin gtt without bolus
HPI: Patient came to [facility] 10/15/23 with abdominal pain and constipation and was admitted with sepsis and stercoral colitis, cardiology is now consulted for acute HF. Patient came to ER with abdominal pain and constipation and appeared to be septic.
He was started on pressors and later taken to the OR same day for a damage control operation with subtotal colectomy. He returned to the OR 10/18/23 for wound closure and end ileostomy. Patient has received 17.25 liters of IVFs since admission. He is
now allowed sips of water and is receiving TPN. Cardiology is asked to see patient for possible acute HF. His weight is overall up 10 lbs from admission despite NPO and bowel surgery. He denies edema, bloating or SOB. His pro-BNP was 3680 yesterday
and he was started on Lasix 40 mg IV daily. Patient denies chest pain. He has permanent Afib and HRs are rapid, but he denies palpitations. He was not taking a rate controlling med prior to admission, but was started on Toprol XL 50 mg BID
yesterday.
Progress Note - Field Auditor
Subjective
Date of Service: October 30, 2023
He wishes he could eat an omelette
Objective
Labs:
10/30/23 04:12
10/30/23 05:37
Labs
Hgb 8.8 g/dL (13.0-18.0) L 10/30/23 04:12
Hct 28.0 % (39.0-52.0) L 10/30/23 04:12
Plt Count 380 10^3/uL (130-400) 10/30/23 04:12
PT 15.3 Sec (11.4-14.6) H 10/26/23 06:11
INR 1.20 10/26/23 06:11
APTT 71.1 Sec (23.4-35.0) H 10/30/23 07:55
Sodium 134 mmol/L (135-145) L 10/30/23 05:37
Potassium 4.1 mmol/L (3.5-5.1) 10/30/23 05:37
BUN 26 mg/dl (9-20) H 10/30/23 05:37
Creatinine 0.6 mg/dL (0.7-1.3) L 10/30/23 05:37
Glucose 186 mg/dl (70-99) H 10/30/23 05:37
Vital Signs and I&O:
Vital Signs
Temp Pulse Resp BP Pulse Ox
98.8 F 114 21 153/95 94
10/30/23 11:41 10/30/23 07:49 10/29/23 16:00 10/30/23 07:49 10/30/23 09:29
Vital Signs
Temp Pulse Resp BP Pulse Ox
98.8 F 114 21 153/95 94
10/30/23 11:41 10/30/23 07:49 10/29/23 16:00 10/30/23 07:49 10/30/23 09:29
Intake & Output
10/28/23 10/29/23 10/30/23 10/31/23
06:59 06:59 06:59 06:59
Intake Total 2781 / 2781 1983 / 1983 1494 / 1494
Output Total 5900 / 5900 3275 / 3275 3675 / 3675
Balance -3119 / -3119 -1291 / -1291 -2181 / -2181
Physical Exam
Physical Exam
GEN: AAOx3
HEENT: MMM, wearing glasses
LUNGS: Few rales at bases
CV: Afib on tele
ABD: ND
EXT: No edema B/L
NEURO: Gross non-focal
SKIN: No rash
[2023-10-30] MEDS: FERRLECIT 110 MG IV (14:55)
[2023-10-30 15:22] LABS: APTT 59.9 Sec (23.4-35.0)
[2023-10-30 16:26] LABS: Glucose - Point of Care 168 mg/dl (70-99)
[2023-10-30] MEDS: FLOMAX 0.4 MG PO (17:20)
[2023-10-30] MEDS: VIBRAMYCIN 100 MG PO (19:58)
--- NOTE | 2023-10-30 20:06 | PTCARENOTE ---
Received pt from [facility]. Pt is AAOx3, RUBY, flat/withdrawn. On RA O2 sat 93%, lungs diminished/coarse/rhonchi. Celaya in place, hygiene provided. Ileostomy. Midline incision c/d/i. TPN infusing through PICC. Heparin gtt @ 1700 units. Pt is laying
in bed with call zamora in reach.
[2023-10-30] MEDS: Parenteral Nutrition, Central 1480 IV (21:19)
[2023-10-30 21:39] LABS: Glucose - Point of Care 183 mg/dl (70-99)
[2023-10-30] MEDS: HEPARIN 25000 UNITS/250 ML IV (23:32)
[2023-10-31] VITALS (16 sets, daily range): BP systolic 106–157; BP diastolic 75–105; PULSE 110; O2SAT 94; BMI 27.3
[2023-10-31] MEDS: ZOSYN 100 IV ×4 (03:53→22:26)
[2023-10-31 04:19] LABS: APTT 114.9 Sec (23.4-35.0)
[2023-10-31 04:48] LABS: % Basophils 0.4 % (0-2); % Immature Granulocytes 1.7 % (0-0.5); % Lymphocytes 7.3 % (20.5-51.1); % Monocytes 11.3 % (1.7-9.3); % Neutrophils 77.3 % (42.2-75.2); Absolute Basophils 0.1 10^3/uL (0-0.2); Absolute Eosinophils 0.3 10^3/uL (0-0.7); Absolute Immature Granulocytes 0.2 10^3/uL (0-0.05); Absolute Monocytes 1.6 10^3/uL (0.1-0.6); Absolute Neutrophils 10.6 10^3/uL (1.4-6.5); Hematocrit 25.9 % (39.0-52.0); Hemoglobin 8.7 g/dL (13.0-18.0); Mean Corp Hgb Conc. 33.6 g/dL (33.0-37.0); Mean Corpuscular Hgb 30.2 pg (27.0-31.0); Mean Corpuscular Volume 89.9 fL (80.0-94.0); Mean Platelet Volume 9.4 fL (7.4-10.4); Nucleated Red Blood Cells % 0 % (-); Platelet Count 401 10^3/uL (130-400); Red Blood Cell Count 2.88 10^6/uL (4.70-6.10); Red Cell Dist. Width 14.7 % (11.5-14.5); White Blood Cell Count 13.8 10^3/uL (4.8-10.8)
[2023-10-31 05:02] LABS: ALT (SGPT) 23 U/L (0-50); AST (SGOT) 36 U/L (17-59); Albumin 2.5 g/dl (3.5-5.0); Alkaline Phosphatase 67 U/L (38-126); Blood Urea Nitrogen 23 mg/dl (9-20); Calcium 8.3 mg/dl (8.4-10.2); Carbon Dioxide 28 mmol/L (22-30); Chloride 100 mmol/L (98-107); Estimated Creatinine Clearance > 125 ml/min; Glucose 164 mg/dl (70-99); Magnesium 1.9 mg/dl (1.6-2.3); Phosphorus 3.1 mg/dl (2.5-4.5); Potassium 4.3 mmol/L (3.5-5.1); Sodium 133 mmol/L (135-145); Total Bilirubin 0.7 mg/dl (0.2-1.3); Total Protein 5.1 g/dl (6.3-8.2); eGFR > 60.00
[2023-10-31 07:22] LABS: Glucose - Point of Care 208 mg/dl (70-99)
[2023-10-31] MEDS: NOVOLOG FLEXPEN 12 UNITS SC ×3 (08:15→22:26)
[2023-10-31] MEDS: NOVOLOG FLEXPEN-HIGH RESISTANCE 4 UNITS SC (08:17)
[2023-10-31] MEDS: LASIX 40 MG PO (08:19)
[2023-10-31] MEDS: VIBRAMYCIN 100 MG PO ×2 (08:20→20:52)
[2023-10-31] MEDS: PROTONIX 40 MG PO ×2 (08:20→20:52)
[2023-10-31] MEDS: LOPRESSOR 2.5 MG IV (08:20)
[2023-10-31] MEDS: MUCINEX 1200 MG PO ×2 (08:20→20:51)
--- NOTE | 2023-10-31 09:11 | PN.DE.MGMTRT ---
Insulin Management
- -
10/31/2023: Diabetes Management Follow up:
Patient admitted 10/14 with lower abdominal abdominal pain, N&V. PMH: PAF, HTN, COPD, BPH, former tobacco smoker T2DM and allergic rhinitis.
CT A/P-->Stercoral colitis with severe constipation s/p disimpaction in the ER, s/p ex lap with subtotal colectomy- due to severe ischemic bowel on 10/15/2023. Noted for Septic shock requiring multiple pressors, LLL Community acquired PNA and Vent
dependent respiratory failure.
Prior to admission, pt was taking Metformin 500mg BID. Current A1C 6.2%.
Pt awake, A/O x3, sitting up in bed, pleasant, offers no complaints, able to discuss diabetes mgt.
POD #15 s/p subtotal colectomy, POD #13 s/p segmented sigmoid resection and POD # 6 washout of hematoma revision of end ileostomy.
Remains on TPN.
In addition to TPN patient receiving lo residue diet, added 2000 calories.
Q6 hour NovoLog changed to AC and increased to 12 units / with high corrective, Lantus 20 units in am @10.
Will follow for further needed adjustments if TPN rate is reduced since he is now on oral intake.
Diabetes History
- -
Type of Diabetes: 2
Pre-Admission Diabetes Regimen
10/31/23
03:54
Creatinine 0.5 L
Lab Results
Hemoglobin A1c 6.2 % (4.0-5.6) H 10/16/23 03:28
Insulin Pump Settings
IP Diabetes Regimen
10/30/23 10/30/23 10/30/23
10 16:15 21:28
Glucose
POC Glucose 176 H 168 H 183 H
10/31/23 10/31/23
03:54 07:11
Glucose 164 H
POC Glucose 208 H
Meal type: Lunch
Amount consumed: 90%
Patient Education
[2023-10-31] MEDS: DESENEX/MITRAZOL/ZEASORB 1 APPLIC TOPICAL ×2 (09:36→20:52)
--- NOTE | 2023-10-31 09:36 | W.PN.PUL.V3 ---
Today's Communication / Plan
-
Advance diet
Increase activity
Antibiotics
Heparin-eventual conversion to Eliquis
Assessment
-
Assessment: 73-year-old male former tobacco smoker with past medical history of A-fib on Eliquis, hypertension, DM type II, BPH, history of COPD and allergic rhinitis who presents with lower abdominal pain, nausea/vomiting. Symptoms started last
night and he reports constipation for few days. Last BM about 3 days ago. Initial vitals in the ER showed he was in rapid A-fib with VR of 139 bpm, afebrile to 98.4 �F, breathing at 27 breaths minute, hypotensive to 76/59, and SpO2 93% on room
air. EKG confirmed A-fib with RVR. Labs showed leukocytosis to 20.4, creatinine 1.5, lactate 7.4, and T. bili 1.7. Blood culture collected. CT abdomen/pelvis showed fecal impaction without evidence for bowel obstruction. CXR showed retrocardiac
opacification concerning for left lower lobe pneumonia. He was given aztreonam/Flagyl in the ER, fentanyl, morphine, total of 3 L NS 0.9% and Zofran. He was admitted to the ICU for close monitoring with critical care services consulted for
additional management/recommendations.
Chronic conditions ASSET MANAGER: Paroxysmal A-fib on Eliquis, hypertension, DM type II, BPH, history of Lyme disease complicated by arthritis, history of COPD, former tobacco use, allergic rhinitis
-
Pulmonary call back on 10/22/2023 for yeast on the sputum culture from endotracheal aspiration.
Impression:
Yeast on sputum culture
CAP involving LLL
Bilateral pleural effusions due to acute HFpEF
Persistent leukocytosis
Hyperglycemia
Weak cough
-
#Stercoral colitis with severe constipation s/p disimpaction in the ER
Status post expiratory laparotomy/subtotal colectomy-diagnosis bowel ischemia. OR date: 10/15/2023
S/p repeat ex lap with hematoma washout and revision of end ileostomy due to ischemia - OR date 10/25/2023
#Abdominal pain due to above
#Septic shock due to above in the setting of left lower lobe CAP - shock state resolved
#Lactic acidosis - resolved
#CAP involving left lower lobe
#Acute respiratory failure with hypoxia-requiring intubation mechanical ventilation.
Intubated 10/15/2023, extubated 10/19
#JOSE - resolved
#A-fib with RVR - now rate controlled
#Elevated INR
#Transaminitis with elevated T. bili + elevated ALP - now normalized
#Abnormal urinalysis with +1 leukocyte esterase
#Hypertension
#Reported history of COPD
#Former tobacco use disorder with [id number] history, quit about 15 years ago
Plan:
Respiratory status continues to be stable
Supplemental oxygen as needed-currently on room air
Tolerated extubation 10/20/2023
Aspiration precautions
Incentive spirometry
Mucus clearing devices
Nebulizers as needed-currently not bronchospastic
Mucolytic's
Chest x-ray 10/30/2023-decrease in left lower lobe opacifications, no evidence for CHF
Cultures reviewed
Sputum 10/19/2023 with yeast
Infectious disease following-correspondence reviewed
Follow leukocytosis-slowly improving
Antibiotics and antifungals if needed per infectious disease-currently on Zosyn and doxycycline
s/p ceftriaxone (10/17 - 10/22) + s/p cefepime (10/14 - 10/17) and lastly s/p micafungin (10/14 - 10/15)
Status post exploratory laparotomy, subtotal colectomy on 10/15/2023.
Bowel ischemia involving transverse and descending colon: Noted
Status post colon partial colectomy sigmoid and creation of end ileostomy 10/18/2023
Continue with broad-spectrum antibiotics to cover intra-abdominal source as well as pneumonia.
Discontinued micafungin 10/17/2019.
Currently on TPN; diet slowly being advanced per surgery
Cardiology following-correspondence reviewed
Atrial fibrillation rate controlled
Echocardiogram 11/13-EF 60-65%, trace mitral regurgitation, mildly dilated right atrium, aortic sclerosis without stenosis, rhythm rapid atrial fibrillation
Replete electrolytes
Heparin drip-eventual change to Eliquis
Follow hemoglobin and platelet count
Transfuse as needed
DVT prophylaxis-on heparin
GI prophylaxis-on pantoprazole
Nutrition per surgery-advance diet in addition to TPN
Physical/Occupational Therapy
DNR status noted
Outpatient pulmonary follow-up

Data:
CT abdomen/pelvis with IV contrast 10/15/2023:
Findings concerning for fecal impaction.
Large amount of fecal material throughout the colon.
Bilateral too small to characterize hypodense renal lesions likely benign cysts.
Severe atherosclerotic vascular disease.
Solid noncalcified left lower lobe pulmonary nodule. Continued surveillance recommended.
CT Abd/pelvis with IV contrast 10/24/2023:
Status post subtotal colectomy.
Moderate ascites is present in all 4 quadrants, new since prior examination of October 15, 2023. There is no evidence of a focal collection to suggest an abscess.
Bilateral pleural effusions, left slightly greater than right. Adjacent compressive atelectasis within the posterior lower lungs.
Liver contour appears subtly nodular, suggestive of cirrhosis. No evidence of a focal hepatic mass lesion.
The rectum is distended with stool, transverse dimension of 7.9 cm. There is mild perirectal and presacral edema with no significant rectal wall thickening identified.
Moderate to severe subcutaneous edema.
CXR 10/15/2023: Findings suggesting mild left lower lobe pneumonia.
Subjective Data
-
Date of Service:
Date of Service: October 31, 2023
Chief Complaint: Pulmonary Follow Up (Pneumonia) and Pneumonia Follow Up
Subjective:
Denies any worsening shortness of breath, mild dyspnea on exertion, no productive cough, chest congestion, chest pain or abdominal pain
Review of Systems
General: Other (Per HPI)
Objective Data
Data Reviewed
Vital Signs / I&O:
Vital Signs
Temp Pulse Resp BP Pulse Ox
98.2 F 95 25 134/95 94
10/31/23 07:21 10/31/23 08:20 10/31/23 06:00 10/31/23 08:20 10/31/23 06:00
Intake and Output
10/30/23 10/31/23 11/01/23
06:59 06:59 06:59
Intake Total 1494 / 1494 1349 / 1349
Output Total 3675 / 3675 4260 / 4260
Balance -2181 / -2181 -2911 / -2911
SaO2: 94
Nasal Cannula flow liters per minute: 1
Physical Exam
General: Respiratory Distress (negative), Comfortable, Chills (negative) and Sweats (negative)
HEENT: Normocephalic, Anicteric and Moist Mucous Membranes
Cardiovascular: Regular Rhythm, Murmur and Peripheral Edema (+1 lower extremity edema bilaterally)
Respiratory: Wheeze (n), Crackles (Left base), Rhonchi (Dewitt bilaterally upon expiration) and Non-Labored Respirations
GI: Soft, Non Distended, Non Tender, Other (Hypoactive bowel sounds) and Other (RLQ ileostomy with dark blood/stool seen in ostomy bag)
Neurology: Awake, Alert, No Motor Deficits and Tremors (negative)
Skin: Warm, Good Color, Cyanosis (n), Jaundice (negative) and Rash (n)
Labs/Micro/Reports
Lab Data
10/31/23 03:54
10/31/23 03:54
Laboratory Results
10/30/23 10/30/23 10/31/23
14:35 21:14 03:54
APTT 59.9 H 104.0 H 114.9 H
--- NOTE | 2023-10-31 09:58 | CM ---
Patient who is s/p ex lap, subtotal colectomy 10/14, s/p ex lap, partial colectomy, creation end ileostomy 10/17, s/p ex lap, sm bowel resection, creation end ileostomy, s/p Ex lap, SBR, creation end ileostomy for ischemic stoma 10/24. O2 1L. Low
residue diet/TPN due to poor PO intake. Receiving Heparin gtt, IV Abx. Physiatry Consult 10/23- patient accepted by [facility]. PT/OT recomends AR. Seen by ostomy nurse.
CM continuing to follow.
Plan [facility] when medically ready.
--- NOTE | 2023-10-31 10:03 | W.PN.CARDCBS ---
Addendum entered and electronically signed by Ziggy Simms MD 10/31/23 10:53:
I saw and examined the patient.
The FORESTRY AND WILDLIFE MANAGER or PA's note was reviewed and I agree with the note.
Comment: General: Well developed, well nourished in NAD.
Neck: Supple, no JVD, HJR, carotids +2 B/L, no bruits bilaterally.
Heart: Non displaced PMI, irregular, no murmurs, No S3, S4, no rubs.
Lungs: Scattered rhonchi
Extremities: No clubbing, cyanosis or edema bilaterally.
Neuro: Grossly nonfocal, awake, alert and oriented x3.
Rate control in A-fib is reasonable. Volume status reasonable on oral diuretics. Await clearance from surgery to change heparin to Eliquis. Discussed with surgery.
Original Note:
Today's Communication / Plan
-
Changed Lopressor IV to Toprol XL
Changed Lasix IV to PO
Renewed Heparin gtt
Impression / Plan
-
PCP: Dr. Herrera
Cardiology: Dr. Simms, last seen 06/29/22
Impression:
Admitted with stercoral colitis and sepsis 10/15/23
s/p s/p ex lap with subtotal colectomy in a damage control operation 10/15/23
s/p segmental sigmoid resection, end ileostomy and abd wound closure 10/18/23
s/p exploratory lap, small bowel resection, creation end ileostomy, secondary to stoma with necrotic mucosa 10/25/2023
Permanent Afib with RVR
Acute HFpEF
LLL PNA
Leukocytosis
post op anemia
JOSE
Hypernatremia
Hypokalemia
Elevated LFTs
DM 2
COPD
Echo 10/25/23: EF 60-65%, trace MR, aortic sclerosis without stenosis
Plan:
-Weight continues to trend down according to bed scale recorded weights. Lasix IV changed to 40 mg PO daily on 10/31/23.
-Patient was taking HCTZ 25 mg daily as part of lisinopril/HCTZ combo pill prior to admission, but HCTZ now stopped. JORY has not been restarted. BP intermittently elevated 134/95, 157/105.
-Change Lopressor IV to Toprol XL 25 mg PO daily on 10/31/23.
-Pending BP and HR response would increase Toprol XL or restart lisinopril on 11/01/23.
-EF preserved by echo 10/25/23
-Afib is permanent and previously rate controlled without meds prior to admission
-Eliquis has been on hold since admission. Heparin gtt without bolus renewed by me 10/31/23. Plt # stable at 401 on CBC 10/31/23.
HPI: [facility] with abdominal pain and constipation and was admitted with sepsis and stercoral colitis, cardiology is now consulted for acute HF. Patient came to ER with abdominal pain and constipation and appeared to be septic.
He was started on pressors and later taken to the OR same day for a damage control operation with subtotal colectomy. He returned to the OR 10/18/23 for wound closure and end ileostomy. Patient has received 17.25 liters of IVFs since admission. He is
now allowed sips of water and is receiving TPN. Cardiology is asked to see patient for possible acute HF. His weight is overall up 10 lbs from admission despite NPO and bowel surgery. He denies edema, bloating or SOB. His pro-BNP was 3680 yesterday
and he was started on Lasix 40 mg IV daily. Patient denies chest pain. He has permanent Afib and HRs are rapid, but he denies palpitations. He was not taking a rate controlling med prior to admission, but was started on Toprol XL 50 mg BID
yesterday.
Progress Note - Order Packer Or Packager
Subjective
Date of Service: October 31, 2023
He feels well, no SOB
Objective
Labs:
10/31/23 03:54
10/31/23 03:54
Labs
Hgb 8.7 g/dL (13.0-18.0) L 10/31/23 03:54
Hct 25.9 % (39.0-52.0) L 10/31/23 03:54
Plt Count 401 10^3/uL (130-400) H 10/31/23 03:54
PT 15.3 Sec (11.4-14.6) H 10/26/23 06:11
INR 1.20 10/26/23 06:11
APTT 114.9 Sec (23.4-35.0) H 10/31/23 03:54
Sodium 133 mmol/L (135-145) L 10/31/23 03:54
Potassium 4.3 mmol/L (3.5-5.1) 10/31/23 03:54
BUN 23 mg/dl (9-20) H 10/31/23 03:54
Creatinine 0.5 mg/dL (0.7-1.3) L 10/31/23 03:54
Glucose 164 mg/dl (70-99) H 10/31/23 03:54
Vital Signs and I&O:
Vital Signs
Temp Pulse Resp BP Pulse Ox
98.2 F 95 22 134/95 94
10/31/23 07:21 10/31/23 08:20 10/31/23 08:19 10/31/23 08:20 10/31/23 09:36
Vital Signs
Temp Pulse Resp BP Pulse Ox
98.2 F 95 22 134/95 94
10/31/23 07:21 10/31/23 08:20 10/31/23 08:19 10/31/23 08:20 10/31/23 09:36
Intake & Output
10/29/23 10/30/23 10/31/23 11/01/23
06:59 06:59 06:59 06:59
Intake Total 1983 1494 / 1494 1349 / 1349
Output Total 3275 / 3275 3675 / 3675 4260 / 4260
Balance -1291 / -1291 -2181 / -2181 -2911 / -2911
Physical Exam
Physical Exam
GEN: AAOx3
HEENT: MMM
LUNGS: No audible wheeze
CV: Afib on tele
ABD: ND
EXT: No edema B/L
NEURO: Gross non-focal
SKIN: No rash
[2023-10-31] MEDS: LANTUS 0.2 UNITS SC (10:34)
[2023-10-31] MEDS: TOPROL XL 25 MG PO (11:28)
[2023-10-31 11:37] LABS: Glucose - Point of Care 196 mg/dl (70-99)
--- NOTE | 2023-10-31 12:01 | PTCARENOTE ---
[facility] at 16. PTT angie at 1030 and result was 71. Increased drip to 17 per protocol, next PTT is at 1738. Patient overall stated feeling tired today. AX3 and in Afib. Will continue to monitor patient,
call zamora within reach.
--- NOTE | 2023-10-31 12:16 | W.PN.ID1 ---
Date of Service
Date of Service: October 31, 2023
Today's Communication
- continue zosyn day 7
- duration pending course
- continue doxycycline 10/04 through 10/31; 4 week course for lyme arthritis, ceftriaxone was equivalent drug; diagnosis made by PCP
Assessment / Plan
S/p ex lap with subtotal colectomy for ischemic colitis - 10/15/23
S/p segmental sigmoid resection, end ileostomy and abd wound closure 10/18/23
S/p Exploratory laparotomy, small bowel resection, creation end ileostomy 10/25/23
Anasarca
recent diagnosis of lyme arthritis of R knee - (by outpatient by PCP)
reported penicillin allergy (unknown rxn)
Leukocytosis - slowly trending down
- surgical team aware of the ostomy and following
- continue zosyn day 7
- duration pending course
- continue doxycycline 10/04 through 10/31; 4 week course for lyme arthritis, ceftriaxone was equivalent drug; diagnosis made by PCP
- follow cbc daily, follow clinically
����������������������������������������������������������
Chief Complaint
-: Leukocytosis
Subjective / Review of Systems
remains afebrile
productive cough reported by care team
ostomy black, sunken; surgical team aware and following
Vital Signs / Physical Exam
Vital Signs
Vital Signs
Temp Pulse Resp BP Pulse Ox
98.6 F 103 22 106/81 94
10/31/23 11:38 10/31/23 11:28 10/31/23 08:19 10/31/23 11:28 10/31/23 09:36
Physical Exam
Constitutional: No Acute Distress
Cardiovascular: Regular Rate and S1/S2; Negative Murmur or Rub
Pulmonary: Clear and Symmetric; Negative Wheezes or Rales
Gastrointestinal: Soft, Non Tender, Non Distended, Normal Bowel Sounds and Other (ostomy black, sunken)
Skin: Warm and Dry; Negative Rash or Jaundice
Objective Data
Lab Data
Lab Results
10/31/23 03:54
10/31/23 03:54
PT 15.3 Sec (11.4-14.6) H 10/26/23 06:11
INR 1.20 10/26/23 06:11
APTT 71.0 Sec (23.4-35.0) H 10/31/23 10:53
Estimated Creat Clear > 125 ml/min 10/31/23 03:54
Lactic Acid 1.3 mmol/L (0.7-2.0) 10/25/23 05:27
Total Bilirubin 0.7 mg/dl (0.2-1.3) 10/31/23 03:54
AST 36 U/L (17-59) 10/31/23 03:54
ALT 23 U/L (0-50) 10/31/23 03:54
Alkaline Phosphatase 67 U/L (38-126) 10/31/23 03:54
Most recent labs reviewed as above in addition:
wbc 13.8 from 14.3
plt 401 from 380
L shift nearly resolved
10/29 CXR reviewed probably decrease in atelectasis - I agree with radiology read
Micro Results:
10/19/23 13:41 Respiratory Culture - Final
Endotracheal Yeast
Gram Stain - Final
10/15/23 05:43 Blood Culture - Final
Blood/Venous No Growth - Final Report
10/15/23 09:57 Urine Culture - Final
Urine NO GROWTH
Care Review
Plan reviewed with: Physician (Dr Holder - george)
[2023-10-31] MEDS: NOVOLOG FLEXPEN-HIGH RESISTANCE 2 UNITS SC (12:17)
--- NOTE | 2023-10-31 13:01 | W.PN.HOSP.TC ---
Today's Communication/Plan
-
continue IV heparin
continue IV Zosyn
continue oral Lasix
appreciate all consultants
Assessment / Plan
Assessment / Plan
Assessment:
Acute surgical abdomen with stercoral colitis with severe ischemic bowel
Septic shock POA resolved; off pressors, s/p stress dose steroids
- s/p disimpaction in ER
- clinically unstable emergent OR 10/14: ex lap, subtotal colectomy for mesenteric ischemia, ischemic colon
- s/p OR 10/17: exploratory laparotomy, partial colectomy (sigmoid), creation end ileostomy
- s/p OR 10/24: Exploratory laparotomy, small bowel resection, creation end ileostomy (due to necrosis at prior ostomy site)
- continue Zosyn per ID
- diet LRD, TPN per GS
- continue PPI BID
Persistent Elevating Leukocytosis despite extended course IV abx as above
- Repeat CT abd/pelvis noted ascites possible cirrhosis moderate to severe subcutaneous edema.
- IR eval requested for diagnostic/therapeutic paracentesis however noted ascites too small as per IR review of imaging
- Ascites was noted to be old blood as seen during above repeat surgical exploration, hematoma washout performed
- ID eval appreciated
- BNP elevated, ECHO noted preserved EF 60-65% no significant change from prior ECHO 2020
- continue Lasix 40mg daily
- cardio eval appreciated
- post-op ileus nausea hiccups, patient briefly strict NPO post procedure, symptoms subsequently improved, gradually advanced to LRD as per surgery
Acute Blood Loss Anemia following repeat procedure as above
Iron Deficiency
Anemia of Chronic disease
- total 2PRBC transfusions with Lasix since above procedure 10/24
- IV Iron supplementation started, eventual transition to PO
Community acquired PNA, LLL
Vent dependent respiratory failure
- extubated 10/18
- wean O2 as tolerated
- continue Zosyn per ID
JOSE from septic shock resolved
Acute metabolic acidosis
- monitor renal function
- monitor labs while on TPN
A. Fib with RVR
- likely driven by septic shock
- monitor rates; transitioned to PO Metoprolol 25mg q6h further transitioned to long acting 50 mg BID, switched to scheduled IV metoprolol due to strict NPO as above
- continue IV heparin drip which requires intensive monitoring
- cardio eval appreciated
Lyme arthritis
- continue Doxycycline through 10/31
Hypernatremia resolved
Mild transaminitis
- resolved
Hx of Essential HTN
- holding JORY/HCTZ
- started on Lasix as above
Type 2 DM
- holding Metformin
- completed critical care insulin protocol
- continue SSI
- Diabetes MANAGER ENVIRONMENTAL AFFAIRS following
Hx of COPD
Former tobacco use disorder with [id number] history, quit about 15 years ago
Hypokalemia
Hypophosphatemia
- monitor and replete as necessary
Urinary retention
- continue Flomax
- Celaya catheter, eventual trial of void
10/25 mild Testicular Ecchymosis Painless, likely superficial bruising healing
- scrotal US appreciated no acute abn's
PT/OT appreciated Acute Rehab
DVT ppx: IV Heparin drip
Code: DNR
Anticipated Discharge: > 48 hours
Subjective/Interval History
-
Date of Service: October 31, 2023
no new complaints presently
Objective Data
-
Labs:
Laboratory Results
10/31/23 10/31/23 10/31/23
03:54 10:53 17:38
WBC 13.8 H
Hgb 8.7 L
Hct 25.9 L
Plt Count 401 H
APTT 114.9 H 71.0 H Pending
Sodium 133 L
Potassium 4.3
Chloride 100
Carbon Dioxide 28
BUN 23 H
Creatinine 0.5 L
Glucose 164 H
Calcium 8.3 L
Total Bilirubin 0.7
AST 36
ALT 23
Alkaline Phosphatase 67
Vital Signs:
Vital Signs
Temp Pulse Resp BP Pulse Ox
98.6 F 103 22 106/81 94
10/31/23 11:38 10/31/23 11:28 10/31/23 08:19 10/31/23 11:28 10/31/23 09:36
I&O
10/30/23 10/31/23 11/01/23
06:59 06:59 06:59
Intake Total 1494 / 1494 1349 / 1349
Output Total 3675 / 3675 4260 / 4260
Balance -2181 / -2181 -2911 / -2911
Physical Exam
-
General: No Apparent Distress
HEENT: Normocephalic and Atraumatic
Respiratory: Negative Wheezes
Cardiac: Regular Rhythm and S1/S2
GI: Soft
Genito-urinary: No Costovertebral Tender
Neuro: AO x 3
Psych: Calm
Data Reviewed
-
Total Time Spent with Patient (in minutes): 51
Labs: Labs Reviewed by me
--- NOTE | 2023-10-31 14:55 | W.PN.GS2 ---
Today's Communication / Plan
-
-- No major changes, continue to monitor ostomy closely may need revision
-- Trend WBC
-- Continue to hold oral anticoagulation
Assessment / Plan
-
73 yo male with h/o of AFIB on Eliquis presenting with abdominal pain with fecal impaction on initial CT, disimpacted in ED but without relief in pain. Taken to the OR emergently on 10/15 as he clinically deteriorated with increasing abdominal pain.
POD #15 s/p ex lap with subtotal colectomy in a damage control operation
POD #11 s/p segmental sigmoid resection, end ileostomy and abd wound closure
POD#6 s/p ex lap, washout hematoma; revision of end ileostomy for ischemia
AFVSS
leukocytosis still present but very slowly trending down
stoma functioning but beginning to retract
acute anemia present but stable, s/p transfusion of one unit on 10/27/23
tolerated full liquids but with low intakes
Plan: LRD as tolerated, will continue TPN as PO intake still remains quite low
TPN renewed
continue PPI BID
doxy and Zosyn - ID following
diabetic management as per diabetes TRANSMISSION OPERATOR
analgesics/antiemetics as needed
continue silva until more recovered from surgery, tentative vt in am
OK for heparin gtt no boluses, please continue to hold oral AC at this time
oob/ambulate as tolerated, PT/OT following
stoma nurse following, ok to remove midline dressing with appliance care
SCD's while in bed
Subjective Data
-
Date of Service: October 31, 2023
No complaints. Denies worsening abdominal pain. No nausea or vomiting. Passing loose stools and flatus via ostomy.
Objective Data
-
Intake and Output
10/30/23 10/31/23 11/01/23
06:59 06:59 06:59
Intake Total 1494 / 1494 1349 / 1349
Output Total 3675 / 3675 4260 / 4260 1200 / 1200
Balance -2181 / -2181 -2911 / -2911 -1200 / -1200
Intake:
Oral fluids 240 / 240 410 / 410
IV piggybacks 570 / 570 200 / 200
TPN/PPN 684 / 684 739 / 739
Output:
Liquid stool amount 210 / 210
Ileostomy 210 / 210
Urine, Silva 3675 / 3675 4050 / 4050 1200 / 1200
Vital Signs
Temp Pulse Resp BP Pulse Ox
98.6 F 103 22 106/81 94
10/31/23 11:38 10/31/23 11:28 10/31/23 08:19 10/31/23 11:28 10/31/23 09:36
Lab Results
10/31/23 03:54
10/31/23 03:54
Calcium 8.3 mg/dl (8.4-10.2) L 10/31/23 03:54
Phosphorus 3.1 mg/dl (2.5-4.5) 10/31/23 03:54
Magnesium 1.9 mg/dl (1.6-2.3) 10/31/23 03:54
Total Bilirubin 0.7 mg/dl (0.2-1.3) 10/31/23 03:54
Direct Bilirubin 0.2 mg/dl (0.0-0.4) 10/26/23 06:11
AST 36 U/L (17-59) 10/31/23 03:54
ALT 23 U/L (0-50) 10/31/23 03:54
Alkaline Phosphatase 67 U/L (38-126) 10/31/23 03:54
Total Protein 5.1 g/dl (6.3-8.2) L 10/31/23 03:54
Albumin 2.5 g/dl (3.5-5.0) L 10/31/23 03:54
Physical Exam
-
Gen: NAD
Abd: soft, NT/ND, non-peritoneal, ostomy necrotic with slough, stool and flatus in appliance, test tube eval with dark mucosa down to fascial level, release of stool, midline c/d/i
[2023-10-31] MEDS: HEPARIN 25000 UNITS/250 ML IV (14:56)
[2023-10-31 16:57] LABS: Glucose - Point of Care 105 mg/dl (70-99)
[2023-10-31] MEDS: NOVOLOG FLEXPEN-HIGH RESISTANCE SC (16:59)
[2023-10-31] MEDS: FLOMAX 0.4 MG PO (18:07)
[2023-10-31] MEDS: NOVOLOG FLEXPEN SC (18:23)
[2023-10-31 18:24] LABS: APTT 85.7 Sec (23.4-35.0)
--- NOTE | 2023-10-31 20:08 | PTCARENOTE ---
Received pt from almita CARRILLO. Pt is AAOx3. Afib on the monitor. On RA O2 sat 96%, lungs diminished/coarse. Celaya in place, hygiene provided. Ileostomy in place. TPN infusing. Heparin gtt @ 1700 units/hr (see worklist). VSS. Pt is laying in bed with
call zamora in reach.
[2023-10-31] MEDS: Parenteral Nutrition, Central 1480 IV (21:23)
[2023-10-31 22:17] LABS: Glucose - Point of Care 196 mg/dl (70-99)
[2023-11-01] VITALS (20 sets, daily range): BP systolic 104–152; BP diastolic 72–96; BMI 26.8
[2023-11-01 00:44] LABS: APTT 116.6 Sec (23.4-35.0)
[2023-11-01] MEDS: ZOSYN 100 IV ×4 (04:15→22:33)
[2023-11-01 07:42] LABS: APTT 93.8 Sec (23.4-35.0)
[2023-11-01] MEDS: HEPARIN 25000 UNITS/250 ML IV (07:46)
[2023-11-01 08:07] LABS: Glucose - Point of Care 214 mg/dl (70-99)
--- NOTE | 2023-11-01 08:26 | PTCARENOTE ---
Assumed care of patient at beginning of this shift from previous RN with TPN infusing at 62ml/hr and heparin drip infusing at 1600 units/hr. PTT resulted within parameters at 93.8. Order then entered by Dr Richardson to hold heparin infusion and make
NPO. [place] text sent to him that patient just finished breakfast. Confirmed to stop heparin at this time as he stated maybe OR this afternoon. Accu check was 214 pre-breakfast. Patient ate 1 and 1/2 slices yakut toast, banana and 1/2 cup sugar free
iced tea. [facility] text sent to Chelsy Colby to review insulin orders, TPN infusion and breakfast as patient is due for 12 units novolog and 4 units novolog coverage. Instructed to give 16 units.
[2023-11-01] MEDS: NOVOLOG FLEXPEN 12 UNITS SC (08:32)
[2023-11-01] MEDS: NOVOLOG FLEXPEN-HIGH RESISTANCE 4 UNITS SC ×2 (08:32→17:28)
[2023-11-01] MEDS: MUCINEX 1200 MG PO (08:32)
[2023-11-01] MEDS: PROTONIX 40 MG PO (08:33)
[2023-11-01] MEDS: VIBRAMYCIN 100 MG PO (08:33)
[2023-11-01] MEDS: LASIX 40 MG PO (08:33)
[2023-11-01] MEDS: TOPROL XL 25 MG PO (08:33)
[2023-11-01] MEDS: DESENEX/MITRAZOL/ZEASORB 1 APPLIC TOPICAL ×2 (08:37→21:33)
--- NOTE | 2023-11-01 08:53 | PTCARENOTE ---
Dr Richardson up to see patient and inform him of possible surgery this afternoon; instructed to maintain NPO and continue to hold heparin infusion. Ostomy bag changed by Dr Richardson. WOC also in to speak with patient.
--- NOTE | 2023-11-01 08:56 | PN.DE.MGMTRT ---
Insulin Management
- -
11/01/2023: Diabetes Management Follow up:
Patient admitted 10/14 with lower abdominal abdominal pain, N&V. PMH: PAF, HTN, COPD, BPH, former tobacco smoker T2DM and allergic rhinitis.
CT A/P-->Stercoral colitis with severe constipation s/p disimpaction in the ER, s/p ex lap with subtotal colectomy- due to severe ischemic bowel on 10/15/2023. Noted for Septic shock requiring multiple pressors, LLL Community acquired PNA and Vent
dependent respiratory failure.
Prior to admission, pt was taking Metformin 500mg BID. Current A1C 6.2%.
Pt awake, A/O x3, sitting up in bed, pleasant, offers no complaints, able to discuss diabetes mgt.
POD #16 s/p subtotal colectomy, POD #13 s/p segmented sigmoid resection and POD # 7 washout of hematoma revision of end ileostomy.
Remains on TPN.
In addition to TPN patient receiving lo residue diet, added 2000 calories.
Q6 hour NovoLog changed to AC and increased to 12 units 9/9 with high corrective, Lantus 20 units in am @10.
Glucose range 10/30 105 to 196. Will make no change to current regimen. Patient NPO after breakfast for OR later today.
Will follow for further needed adjustments if TPN rate is reduced since he is now on oral intake.
Diabetes History
- -
Type of Diabetes: 2
Pre-Admission Diabetes Regimen
Lab Results
Hemoglobin A1c 6.2 % (4.0-5.6) H 10/16/23 03:28
Insulin Pump Settings
IP Diabetes Regimen
10/31/23 10/31/23 10/31/23
11:26 16:46 22:05
POC Glucose 196 H 105 H 196 H
11/01/23
07:56
POC Glucose 214 H
Patient Education
--- NOTE | 2023-11-01 09:20 | W.PN.PUL.V3 ---
Today's Communication / Plan
-
Monitor ostomy-might require revision
Aspiration precautions
Antibiotics
Assessment
-
Assessment: 73-year-old male former tobacco smoker with past medical history of A-fib on Eliquis, hypertension, DM type II, BPH, history of COPD and allergic rhinitis who presents with lower abdominal pain, nausea/vomiting. Symptoms started last
night and he reports constipation for few days. Last BM about 3 days ago. Initial vitals in the ER showed he was in rapid A-fib with VR of 139 bpm, afebrile to 98.4 �F, breathing at 27 breaths minute, hypotensive to 76/59, and SpO2 93% on room
air. EKG confirmed A-fib with RVR. Labs showed leukocytosis to 20.4, creatinine 1.5, lactate 7.4, and T. bili 1.7. Blood culture collected. CT abdomen/pelvis showed fecal impaction without evidence for bowel obstruction. CXR showed retrocardiac
opacification concerning for left lower lobe pneumonia. He was given aztreonam/Flagyl in the ER, fentanyl, morphine, total of 3 L NS 0.9% and Zofran. He was admitted to the ICU for close monitoring with critical care services consulted for
additional management/recommendations.
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
-
Pulmonary call back on 10/22/2023 for yeast on the sputum culture from endotracheal aspiration.
Impression:
Yeast on sputum culture
CAP involving LLL
Bilateral pleural effusions due to acute HFpEF
Persistent leukocytosis
Hyperglycemia
Weak cough
DNR-Limited
-
#Stercoral colitis with severe constipation s/p disimpaction in the ER
Status post exploratory laparotomy/subtotal colectomy-diagnosis bowel ischemia. OR date: 10/15/2023
S/p repeat ex lap with hematoma washout and revision of end ileostomy due to ischemia - OR date 10/25/2023
#Abdominal pain due to above
#Septic shock due to above in the setting of left lower lobe CAP - shock state resolved
#Lactic acidosis - resolved
#CAP involving left lower lobe
#Acute respiratory failure with hypoxia-requiring intubation mechanical ventilation.
Intubated 10/15/2023, extubated 10/19
#JOSE - resolved
#A-fib with RVR - now rate controlled
#Elevated INR
#Transaminitis with elevated T. bili + elevated ALP - now normalized
#Abnormal urinalysis with +1 leukocyte esterase
#Hypertension
#Reported history of COPD
#Former tobacco use disorder with [id number] history, quit about 15 years ago
Plan:
Respiratory status remained stable
Supplemental oxygen as needed-currently on room air
Tolerated extubation 10/20/2023
Aspiration precautions
Incentive spirometry
Mucus clearing devices
Nebulizers as needed-currently not bronchospastic
Mucolytic's
Chest x-ray 10/30/2023-decrease in left lower lobe opacifications, no evidence for CHF
Cultures reviewed
Sputum 10/19/2023 with yeast
Infectious disease following-correspondence reviewed
Follow leukocytosis-slowly improving
Antibiotics and antifungals if needed per infectious disease-currently on Zosyn and doxycycline
s/p ceftriaxone (10/17 - 10/22) + s/p cefepime (10/14 - 10/17) and lastly s/p micafungin (10/14 - 10/15)
Status post exploratory laparotomy, subtotal colectomy on 10/15/2023.
Bowel ischemia involving transverse and descending colon: Noted
Status post colon partial colectomy sigmoid and creation of end ileostomy 10/18/2023
Continue with broad-spectrum antibiotics to cover intra-abdominal source as well as pneumonia.
Discontinued micafungin 10/17/2019.
Currently on TPN; diet slowly being advanced per surgery
Surgery following-correspondence reviewed
Monitor ostomy closely-might need revision
Cardiology following-correspondence reviewed
Atrial fibrillation rate controlled
Echocardiogram 11/13-EF 60-65%, trace mitral regurgitation, mildly dilated right atrium, aortic sclerosis without stenosis, rhythm rapid atrial fibrillation
Continue to replete electrolytes as needed
Heparin drip-eventual change to Eliquis-keep on heparin as patient might require ostomy revision
Follow hemoglobin and platelet count
Transfuse as needed
DVT prophylaxis-on heparin
GI prophylaxis-on pantoprazole
Nutrition per surgery-advance diet in addition to TPN
Physical/Occupational Therapy
Reviewed with nursing
Outpatient pulmonary follow-up

Data:
CT abdomen/pelvis with IV contrast 10/15/2023:
Findings concerning for fecal impaction.
Large amount of fecal material throughout the colon.
Bilateral too small to characterize hypodense renal lesions likely benign cysts.
Severe atherosclerotic vascular disease.
Solid noncalcified left lower lobe pulmonary nodule. Continued surveillance recommended.
CT Abd/pelvis with IV contrast 10/24/2023:
Status post subtotal colectomy.
Moderate ascites is present in all 4 quadrants, new since prior examination of October 15, 2023. There is no evidence of a focal collection to suggest an abscess.
Bilateral pleural effusions, left slightly greater than right. Adjacent compressive atelectasis within the posterior lower lungs.
Liver contour appears subtly nodular, suggestive of cirrhosis. No evidence of a focal hepatic mass lesion.
The rectum is distended with stool, transverse dimension of 7.9 cm. There is mild perirectal and presacral edema with no significant rectal wall thickening identified.
Moderate to severe subcutaneous edema.
CXR 10/15/2023: Findings suggesting mild left lower lobe pneumonia.
Subjective Data
-
Date of Service:
Date of Service: November 01, 2023
Chief Complaint: Pulmonary Follow Up (Pneumonia), Dyspnea Follow Up and Pneumonia Follow Up
Subjective:
Slept well, no complaints of shortness of breath, chest pain, abdominal pain, beginning to advance diet, stoma however dark
Review of Systems
General: Other (Per HPI)
Objective Data
Data Reviewed
Vital Signs / I&O:
Vital Signs
Temp Pulse Resp BP Pulse Ox
98.7 F 90 21 136/91 95
11/01/23 07:42 11/01/23 06:00 11/01/23 06:00 11/01/23 06:00 10/31/23 21:29
Intake and Output
10/31/23 11/01/23 11/02/23
06:59 06:59 06:59
Intake Total 1349 / 1349 410 / 410
Output Total 4260 / 4260 4150 / 4150
Balance -2911 / -2911 -3740 / -3740
SaO2: 95
Nasal Cannula flow liters per minute: 1
Physical Exam
General: Respiratory Distress (negative), Comfortable, Chills (negative) and Sweats (negative)
HEENT: Normocephalic, Anicteric and Moist Mucous Membranes
Cardiovascular: Regular Rhythm, Murmur and Peripheral Edema (+1 lower extremity edema bilaterally)
Respiratory: Wheeze (n), Crackles (Left base), Rhonchi ([place] bilaterally upon expiration) and Non-Labored Respirations
GI: Soft, Non Distended, Non Tender, Other (Hypoactive bowel sounds) and Other (RLQ ileostomy with dark blood/stool seen in ostomy bag)
Neurology: Awake, Alert, No Motor Deficits and Tremors (negative)
Skin: Warm, Good Color, Cyanosis (n), Jaundice (negative) and Rash (n)
Labs/Micro/Reports
Laboratory Results
10/31/23 10/31/23 11/01/23
10:53 18:00 00:12
APTT 71.0 H 85.7 H 116.6 H
11/01/23
07:16
APTT 93.8 H
[2023-11-01] MEDS: LANTUS 0.2 UNITS SC (09:57)
--- NOTE | 2023-11-01 10:12 | PTCARENOTE ---
Addendum entered by Elmira Causey RN 11/01/23 10:19:
Dr Donohue in to see patient and updated on heparin currently on hold per surgery.
Original Note:
Patient due for 20 units Lantus at 10:00. Reviewed with Chelsy Colby since patient still NPO; instructed to give as ordered d/t TPN infusing.
--- NOTE | 2023-11-01 10:33 | W.PN.ID1 ---
Date of Service
Date of Service: November 01, 2023
Today's Communication
final day of doxy
continue zosyn
Assessment / Plan
S/p ex lap with subtotal colectomy for ischemic colitis - 10/15/23
S/p segmental sigmoid resection, end ileostomy and abd wound closure 10/18/23
S/p Exploratory laparotomy, small bowel resection, creation end ileostomy 10/25/23
Anasarca
recent diagnosis of lyme arthritis of R knee - (by outpatient by PCP)
reported penicillin allergy (unknown rxn)
Leukocytosis - pending today
- continue zosyn day 8
- duration pending course
- if taken to the OR then please get aerobic culture
- continue doxycycline 10/04 through 10/31; final day
- follow cbc daily, follow clinically
����������������������������������������������������������
Chief Complaint
-: Leukocytosis
Subjective / Review of Systems
afebrile
cbc and BMP pending today
had breakfast
no abdominal pain and no complaints
Vital Signs / Physical Exam
Vital Signs
Vital Signs
Temp Pulse Resp BP Pulse Ox
98.7 F 90 21 136/91 95
11/01/23 07:42 11/01/23 06:00 11/01/23 06:00 11/01/23 06:00 11/01/23 09:20
Physical Exam
Constitutional: No Acute Distress
Cardiovascular: Regular Rate and S1/S2; Negative Murmur or Rub
Pulmonary: Clear and Symmetric; Negative Wheezes or Rales
Gastrointestinal: Soft, Non Tender, Non Distended, Normal Bowel Sounds and Other (stoma black)
Skin: Warm and Dry; Negative Rash or Jaundice
Wound: Other (stoma dusky)
Objective Data
Lab Data
PT 15.3 Sec (11.4-14.6) H 10/26/23 06:11
INR 1.20 10/26/23 06:11
APTT 93.8 Sec (23.4-35.0) H 11/01/23 07:16
Estimated Creat Clear > 125 ml/min 10/31/23 03:54
Lactic Acid 1.3 mmol/L (0.7-2.0) 10/25/23 05:27
Total Bilirubin 0.7 mg/dl (0.2-1.3) 10/31/23 03:54
AST 36 U/L (17-59) 10/31/23 03:54
ALT 23 U/L (0-50) 10/31/23 03:54
Alkaline Phosphatase 67 U/L (38-126) 10/31/23 03:54
Most recent labs reviewed.
Micro Results:
10/19/23 13:41 Respiratory Culture - Final
Endotracheal Yeast
Gram Stain - Final
10/15/23 05:43 Blood Culture - Final
Blood/Venous No Growth - Final Report
10/15/23 09:57 Urine Culture - Final
Urine NO GROWTH
Care Review
Plan reviewed with: Physician (Dr Kim - if taken to the OR and fluid collection or blood seen please get aerobic culture)
--- NOTE | 2023-11-01 10:42 | W.PN.GS2 ---
Today's Communication / Plan
-
possible OR
TPN renewed
Assessment / Plan
-
73 yo male with h/o of AFIB on Eliquis presenting with abdominal pain with fecal impaction on initial CT, disimpacted in ED but without relief in pain. Taken to the OR emergently on 10/15 as he clinically deteriorated with increasing abdominal pain.
POD #17 s/p ex lap with subtotal colectomy in a damage control operation
POD #14 s/p segmental sigmoid resection, end ileostomy and abd wound closure
POD#7 s/p ex lap, washout hematoma; revision of end ileostomy for ischemia
AFVSS
leukocytosis still present but very slowly trending down
stoma functioning but beginning to retract, mucosa is russell
acute anemia present but stable, s/p transfusion of one unit on 10/27/23, stable since
tolerated full liquids but with low intakes
Plan: LRD as tolerated, will continue TPN as PO intake still remains quite low
TPN renewed
continue PPI BID
doxy and Zosyn - ID following
diabetic management as per diabetes PATHOLOGY TECHNOLOGIST
analgesics/antiemetics as needed
continue silva until more recovered from surgery, tentative vt in am
OK for heparin gtt no boluses, please continue to hold oral AC at this time
oob/ambulate as tolerated, PT/OT following
stoma nurse following, ok to remove midline dressing with appliance care
SCD's while in bed
-holding hep gtt and PO for now in case decision made to RTOR for revision, no final decision yet made
Subjective Data
-
Date of Service: November 01, 2023
Improving, lv diet, feels well, stoma functioning
Objective Data
-
Intake and Output
10/31/23 11/01/23 11/02/23
06:59 06:59 06:59
Intake Total 1349 / 1349 410 / 410
Output Total 4260 / 4260 4150 / 4150
Balance -2911 / -2911 -3740 / -3740
Intake:
Oral fluids 410 / 410 410 / 410
IV piggybacks 200 / 200
TPN/PPN 739 / 739
Output:
Liquid stool amount 210 / 210 150 / 150
Ileostomy 210 / 210 150 / 150
Urine, Silva 4050 / 4050 3550 / 3550
Urine, Voided 450 / 450
Vital Signs
Temp Pulse Resp BP Pulse Ox
98.7 F 90 21 136/91 95
11/01/23 07:42 11/01/23 06:00 11/01/23 06:00 11/01/23 06:00 11/01/23 09:20
Calcium Cancelled 11/01/23 09:52
Phosphorus 3.1 mg/dl (2.5-4.5) 10/31/23 03:54
Magnesium 1.9 mg/dl (1.6-2.3) 10/31/23 03:54
Total Bilirubin 0.7 mg/dl (0.2-1.3) 10/31/23 03:54
Direct Bilirubin 0.2 mg/dl (0.0-0.4) 10/26/23 06:11
AST 36 U/L (17-59) 10/31/23 03:54
ALT 23 U/L (0-50) 10/31/23 03:54
Alkaline Phosphatase 67 U/L (38-126) 10/31/23 03:54
Total Protein 5.1 g/dl (6.3-8.2) L 10/31/23 03:54
Albumin 2.5 g/dl (3.5-5.0) L 10/31/23 03:54
Physical Exam
-
Gen: NAD
Abd: soft, aprop ttp, incision cdi, stoma with russell mucosa, digitizes easily with some blood return around edge of stoma, brown stool and gas in the bag
--- NOTE | 2023-11-01 10:55 | W.PN.CARDCBS ---
Addendum entered and electronically signed by Saturnino Donohue MD 11/01/23 12:23:
I saw and examined the patient.
The Bank Vault Custodian's note was reviewed and I agree with the note.
Comment: GEN: No distress, awake, Ox3
HEENT: supple, anicteric, mmm
LUNGS: CTA, no wheezes/rales
CV: Reg, S1/S2, 1/6 syst LSB, no murmur
ABD: soft, BS+, NT/ND
EXT: No edema
NEURO: Gross non-focal
SKIN: No rash
Plan:
OK to go back to OR. Hold anticoagulation for now
Cont Toprol. Afib is relatively well controlled.
Original Note:
Today's Communication / Plan
-
Heparin gtt on hold for possible return to OR today
Cont Toprol XL and consider increasing dose as needed for increased HR or BP
Impression / Plan
-
PCP: Dr. Herrera
Cardiology: Dr. Simms, last seen 06/29/22
Impression:
Admitted with stercoral colitis and sepsis 10/15/23
s/p s/p ex lap with subtotal colectomy in a damage control operation 10/15/23
s/p segmental sigmoid resection, end ileostomy and abd wound closure 10/18/23
s/p exploratory lap, small bowel resection, creation end ileostomy, secondary to stoma with necrotic mucosa 10/25/2023
Permanent Afib with RVR
Acute HFpEF
LLL PNA
Leukocytosis
post op anemia
JOSE
Hypernatremia
Hypokalemia
Elevated LFTs
DM 2
COPD
Echo 10/25/23: EF 60-65%, trace MR, aortic sclerosis without stenosis
Plan:
-Labs pending for 11/01/23. Weight down. Cont Lasix 40 mg PO daily for now.
-Patient diuresed with Lasix IV earlier this admission, but weight now down from diuresis and at times NPO status.
-Patient was taking HCTZ 25 mg daily as part of lisinopril/HCTZ combo pill prior to admission, but HCTZ now stopped. JORY has not been restarted. BP intermittently elevated 134/95, 157/105.
-EF preserved on echo.
-New to Toprol XL 25 mg PO daily on 10/31/23. BP and HR stable on 11/01/23.
-Follow BP/HR and as needed increase Toprol XL or restart outpatient dose of lisinopril.
-Afib is permanent and previously rate controlled without meds prior to admission
-Eliquis has been on hold since admission. Heparin gtt on hold 11/01/23 for possible return to OR.
HPI: Patient came to [facility] 10/15/23 with abdominal pain and constipation and was admitted with sepsis and stercoral colitis, cardiology is now consulted for acute HF. Patient came to ER with abdominal pain and constipation and appeared to be septic.
He was started on pressors and later taken to the OR same day for a damage control operation with subtotal colectomy. He returned to the OR 10/18/23 for wound closure and end ileostomy. Patient has received 17.25 liters of IVFs since admission. He is
now allowed sips of water and is receiving TPN. Cardiology is asked to see patient for possible acute HF. His weight is overall up 10 lbs from admission despite NPO and bowel surgery. He denies edema, bloating or SOB. His pro-BNP was 3680 yesterday
and he was started on Lasix 40 mg IV daily. Patient denies chest pain. He has permanent Afib and HRs are rapid, but he denies palpitations. He was not taking a rate controlling med prior to admission, but was started on Toprol XL 50 mg BID
yesterday.
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
Subjective
Date of Service: November 01, 2023
No palpitations
Objective
Labs:
Labs
Hgb 8.7 g/dL (13.0-18.0) L 10/31/23 03:54
Hct 25.9 % (39.0-52.0) L 10/31/23 03:54
Plt Count 401 10^3/uL (130-400) H 10/31/23 03:54
PT 15.3 Sec (11.4-14.6) H 10/26/23 06:11
INR 1.20 10/26/23 06:11
APTT 93.8 Sec (23.4-35.0) H 11/01/23 07:16
Sodium Cancelled 11/01/23 09:52
Potassium Cancelled 11/01/23 09:52
BUN Cancelled 11/01/23 09:52
Creatinine Cancelled 11/01/23 09:52
Glucose Cancelled 11/01/23 09:52
Vital Signs and I&O:
Vital Signs
Temp Pulse Resp BP Pulse Ox
98.7 F 90 21 136/91 95
11/01/23 07:42 11/01/23 06:00 11/01/23 06:00 11/01/23 06:00 11/01/23 09:20
Vital Signs
Temp Pulse Resp BP Pulse Ox
98.7 F 90 21 136/91 95
11/01/23 07:42 11/01/23 06:00 11/01/23 06:00 11/01/23 06:00 11/01/23 09:20
Intake & Output
10/30/23 10/31/23 11/01/23 11/02/23
06:59 06:59 06:59 06:59
Intake Total 1494 / 1494 1349 / 1349 410 / 410
Output Total 3675 / 3675 4260 / 4260 4150 / 4150
Balance -2181 / -2181 -2911 / -2911 -3740 / -3740
Physical Exam
Physical Exam
GEN: AAOx3
HEENT: MMM
LUNGS: No audible wheeze
CV: Afib on tele
ABD: ND
EXT: No edema B/L
NEURO: Gross non-focal
SKIN: No rash
[2023-11-01 11:44] LABS: % Basophils 0.9 % (0-2); % Eosinophils 1.6 % (0-6); % Lymphocytes 7.7 % (20.5-51.1); % Monocytes 9.5 % (1.7-9.3); % Neutrophils 78.3 % (42.2-75.2); Absolute Basophils 0.1 10^3/uL (0-0.2); Absolute Eosinophils 0.2 10^3/uL (0-0.7); Absolute Immature Granulocytes 0.2 10^3/uL (0-0.05); Absolute Lymphocytes 0.7 10^3/uL (1.2-3.4); Absolute Monocytes 0.9 10^3/uL (0.1-0.6); Absolute Neutrophils 7.3 10^3/uL (1.4-6.5); Hematocrit 29.2 % (39.0-52.0); Hemoglobin 8.6 g/dL (13.0-18.0); Mean Corp Hgb Conc. 29.5 g/dL (33.0-37.0); Mean Corpuscular Hgb 34.3 pg (27.0-31.0); Mean Corpuscular Volume 116.3 fL (80.0-94.0); Mean Platelet Volume 10.1 fL (7.4-10.4); Nucleated Red Blood Cells % 0.3 % (-); Platelet Count 379 10^3/uL (130-400); Red Blood Cell Count 2.51 10^6/uL (4.70-6.10); Red Cell Dist. Width 15.6 % (11.5-14.5); White Blood Cell Count 9.3 10^3/uL (4.8-10.8)
[2023-11-01 11:46] LABS: Normal RBC Morphology No
[2023-11-01 11:47] LABS: Anisocytosis 2+; Macrocytosis 2+
[2023-11-01 11:48] LABS: Polychromasia Occasional
[2023-11-01 11:53] LABS: Blood Urea Nitrogen 20 mg/dl (9-20); Calcium 8.4 mg/dl (8.4-10.2); Carbon Dioxide 30 mmol/L (22-30); Chloride 100 mmol/L (98-107); Estimated Creatinine Clearance > 125 ml/min; Glucose 135 mg/dl (70-99); Potassium 4.1 mmol/L (3.5-5.1); Sodium 135 mmol/L (135-145); eGFR > 60.00
[2023-11-01 12:13] LABS: Glucose - Point of Care 140 mg/dl (70-99)
[2023-11-01] MEDS: NOVOLOG FLEXPEN SC ×3 (12:26→22:06)
[2023-11-01] MEDS: NOVOLOG FLEXPEN-HIGH RESISTANCE SC (12:26)
--- NOTE | 2023-11-01 13:27 | PTCARENOTE ---
Dr Weller up to see patient; bedside scope done. Per Dr Weller, patient for OR this afternoon; no time given.
--- NOTE | 2023-11-01 14:18 | W.PN.HOSP.TC ---
Today's Communication/Plan
-
ileostomy revision today; Heparin on Hold
IV Abx
TPN
Assessment / Plan
Assessment / Plan
Assessment:
Acute surgical abdomen with stercoral colitis with severe ischemic bowel
Septic shock POA resolved; off pressors, s/p stress dose steroids
- s/p disimpaction in ER
- clinically unstable emergent OR 10/14: ex lap, subtotal colectomy for mesenteric ischemia, ischemic colon
- s/p OR 10/17: exploratory laparotomy, partial colectomy (sigmoid), creation end ileostomy
- s/p OR 10/24: Exploratory laparotomy, small bowel resection, creation end ileostomy (due to necrosis at prior ostomy site)
- OR planned 10/31 for stoma revision, new ostomy creation
- continue Zosyn per ID
- diet LRD, TPN per GS
- continue PPI BID
Persistent Elevating Leukocytosis despite extended course IV abx as above
- Repeat CT abd/pelvis noted ascites possible cirrhosis moderate to severe subcutaneous edema.
- IR eval requested for diagnostic/therapeutic paracentesis however noted ascites too small as per IR review of imaging
- Ascites was noted to be old blood as seen during above repeat surgical exploration, hematoma washout performed
- ID eval appreciated
- BNP elevated, ECHO noted preserved EF 60-65% no significant change from prior ECHO 2020
- continue Lasix 40mg daily
- cardio eval appreciated
- post-op ileus nausea hiccups, patient briefly strict NPO post procedure, symptoms subsequently improved, gradually advanced to LRD as per surgery
Acute Blood Loss Anemia following repeat procedure as above
Iron Deficiency
Anemia of Chronic disease
- total 2 PRBC transfusions with Lasix since above procedure 10/24
- IV Iron supplementation completed, eventual transition to PO when able
Community acquired PNA, LLL
Vent dependent respiratory failure
- extubated 10/18
- wean O2 as tolerated
- continue Zosyn per ID
JOSE from septic shock resolved
Acute metabolic acidosis
- monitor renal function
- monitor labs while on TPN
A. Fib with RVR
- likely driven by septic shock
- monitor rates; transitioned to PO Metoprolol 25mg q6h further transitioned to long acting 50 mg BID, switched to scheduled IV metoprolol due to strict NPO as above
- hold IV heparin drip
- cardio eval appreciated
Lyme arthritis
- continue Doxycycline through 10/31
Hypernatremia resolved
Mild transaminitis
- resolved
Hx of Essential HTN
- holding JORY/HCTZ
- started on Lasix as above
Type 2 DM
- holding Metformin
- completed critical care insulin protocol
- continue SSI
- Diabetes ANALYTICS ARCHITECT following
Hx of COPD
Former tobacco use disorder with [id number] history, quit about 15 years ago
Hypokalemia
Hypophosphatemia
- monitor and replete as necessary
Urinary retention
- continue Flomax
- Celaya catheter, eventual trial of void
10/25 mild Testicular Ecchymosis Painless, likely superficial bruising healing
- scrotal US appreciated no acute abn's
PT/OT appreciated Acute Rehab
DVT ppx: IV Heparin drip
Code: DNR
Anticipated Discharge: > 48 hours
Subjective/Interval History
-
Date of Service: November 01, 2023
for OR today for stoma revision per patient
feels frustated
Objective Data
-
Labs:
Laboratory Results
11/01/23 11/01/23 11/01/23
07:16 09:52 11:24
WBC 9.3
Hgb 8.6 L
Hct 29.2 L
Plt Count 379
APTT 93.8 H
Sodium Cancelled 135
Potassium Cancelled 4.1
Chloride Cancelled 100
Carbon Dioxide Cancelled 30
BUN Cancelled 20
Creatinine Cancelled 0.6 L
Glucose Cancelled 135 H
Calcium Cancelled 8.4
11/01/23
13:15
WBC
Hgb
Hct
Plt Count
APTT Pending
Sodium
Potassium
Chloride
Carbon Dioxide
BUN
Creatinine
Glucose
Calcium
Vital Signs:
Vital Signs
Temp Pulse Resp BP Pulse Ox
98.7 F 85 23 119/85 95
11/01/23 11:44 11/01/23 12:00 11/01/23 12:00 11/01/23 12:00 11/01/23 12:03
I&O
10/31/23 11/01/23 11/02/23
06:59 06:59 06:59
Intake Total 1349 / 1349 410 / 410
Output Total 4260 / 4260 4150 / 4150
Balance -2911 / -2911 -3740 / -3740
Physical Exam
-
General: No Apparent Distress
HEENT: Normocephalic
Respiratory: Negative Wheezes
Cardiac: Regular Rhythm and S1/S2
GI: Soft
Genito-urinary: No Costovertebral Tender
Neuro: AO x 3
Psych: Calm
Data Reviewed
-
Total Time Spent with Patient (in minutes): 42
Labs: Labs Reviewed by me
--- NOTE | 2023-11-01 14:19 | W.PN.UPDATE ---
Update Note
Progress Note Update
I was asked by Dr. Richardson to evaluate the patient's ileostomy for viability.� I reviewed the medical record and imaging studies.� At present he is hemodynamically stable and clinically doing well.� When I examined his abdomen he is soft and
nontender.� The ileostomy appliance was removed and the visible portion of the stoma is necrotic.
I reviewed the evaluation and treatment options with the patient and his family and I recommend an ileoscopy which can be performed at the bedside.� Risks include, but are not limited to, bleeding and perforation.� They wish to proceed and informed
consent was obtained.
Ileoscopy was performed using a flexible stricturoscope. �The mucosa of the distal 4cm was ischemic and more proximal appeared normal. �The scope was withdrawn and he tolerated procedure well.
I reviewed my findings with Dr. Richardson and the plan is for an ileostomy revision later today and I will try make myself available for assistance.
--- NOTE | 2023-11-01 16:20 | CM ---
Patient who is s/p ex lap, subtotal colectomy 10/14, s/p ex lap, partial colectomy, creation end ileostomy 10/17, s/p ex lap, sm bowel resection, creation end ileostomy, s/p Ex lap, SBR, creation end ileostomy for ischemic stoma 10/24. Bedside
ileoscopy today. Plan OR today for ileostomy revision.
Spoke with [facility]; they are following the patient and can accept when he is medically ready.
Plan [facility] when medically ready.
[2023-11-01 17:34] LABS: Glucose - Point of Care 221 mg/dl (70-99)
--- NOTE | 2023-11-01 17:51 | PTCARENOTE ---
Addendum entered by Elmira Causey RN 11/01/23 18:33:
Patient transported with TPN infusing as ordered. Accu check 221; novolog sliding scale coverage administered as per order. Spike CARRILLO made aware during report.
Original Note:
Patient taken to OR by this RN and PCT.
[2023-11-01] MEDS: FLOMAX PO (17:52)
[2023-11-01 18:12] LABS: Glucose - Point of Care 233 mg/dl (70-99)
--- NOTE | 2023-11-01 20:03 | W.IMMPOSTOP ---
Addendum entered and electronically signed by Jeffrey Richardson MD 11/02/23 09:21:
Addendum: additional specimen: aerobic/anaerobic cultures of peritoneal fluid
Original Note:
Surgical Immed Post Op Note
-
Primary Surgeon: Debra
Assisting Surgeon: Nithin
Pre-op Diagnosis: Ischemic stoma
Post-op Diagnosis: Same
Procedure Performed: Exploratory laparotomy, revision end ileostomy
Anesthesia Type: GETA
Specimen / Cultures: Ileostomy
Estimated Blood Loss: 10cc
Complications: None immediate
Operative Findings: Filmy adhesions forming, gently bluntly disrupted; distal 4cm of stoma necrotic, resected. Mesentery scored but maximally preserved. Brisk bleeding at cut bowel edge. Stoma pink and healthy at conclusion of the procedure.
updated by phone
CLD for tonight
Hold hep gtt 24 hrs minimum
[2023-11-01] MEDS: DILAUDID 0.5 MG IV (20:24)
[2023-11-01] MEDS: DILAUDID 0.25 MG IV (20:39)
--- NOTE | 2023-11-01 20:52 | SUR.PHASEI ---
Patient post op for revision of ileostomy, stoma pink on arrival to Pacu. Moderate drainage on lap dressing marked and has not changed. patient treated for pain and TPN restarted. Sabine Leos RN BSN.
--- NOTE | 2023-11-01 21:15 | PTCARENOTE ---
Patient received from PACU, drowsy but arousable. pain controlled. Afib on monitor, afebrile, blood pressure as documented. Palpable pulses throughout, no edema noted, Knee high SCDs maintained. Lungs clear, pulse ox 96% on 4L. Abdomen soft.
Ileostomy stoma red, stool present, hypoactive bowel sounds. Celaya catheter draining yellow urine. RTL PICC with TPN infusing. Midline aquacell dressing with moderate amount of drainage. Family at bedside.
[2023-11-01] MEDS: MUCINEX PO (21:28)
[2023-11-01] MEDS: Parenteral Nutrition, Central 1480 IV (21:31)
[2023-11-01] MEDS: VIBRAMYCIN PO (22:06)
[2023-11-01] MEDS: PROTONIX PO (22:06)
[2023-11-01 23:43] LABS: Glucose - Point of Care 184 mg/dl (70-99)
[2023-11-02] VITALS (31 sets, daily range): BP systolic 96–120; BP diastolic 69–92; BMI 26.8
[2023-11-02] MEDS: NOVOLOG FLEXPEN-HIGH RESISTANCE 2 UNITS SC ×3 (00:30→23:40)
--- NOTE | 2023-11-02 00:33 | PTCARENOTE ---
Patient reassessed, offers no complaints. Midline dressing unchanged, stoma pink, blood sugar covered per sliding scale.
[2023-11-02] MEDS: ZOFRAN 4 MG IV (02:37)
[2023-11-02] MEDS: DILAUDID 0.5 MG IV (03:18)
[2023-11-02] MEDS: ZOSYN 100 IV ×4 (04:13→21:48)
[2023-11-02 05:34] LABS: Blood Urea Nitrogen 24 mg/dl (9-20); Calcium 8.1 mg/dl (8.4-10.2); Carbon Dioxide 28 mmol/L (22-30); Chloride 98 mmol/L (98-107); Estimated Creatinine Clearance 108 ml/min; Glucose 212 mg/dl (70-99); Potassium 4.8 mmol/L (3.5-5.1); Sodium 136 mmol/L (135-145); eGFR > 60.00
[2023-11-02 06:08] LABS: Glucose - Point of Care 206 mg/dl (70-99)
[2023-11-02 06:09] LABS: % Basophils 0.3 % (0-2); % Eosinophils 0.7 % (0-6); % Immature Granulocytes 1.3 % (0-0.5); % Lymphocytes 3.9 % (20.5-51.1); % Monocytes 9.4 % (1.7-9.3); % Neutrophils 84.4 % (42.2-75.2); Absolute Basophils 0.1 10^3/uL (0-0.2); Absolute Eosinophils 0.1 10^3/uL (0-0.7); Absolute Immature Granulocytes 0.2 10^3/uL (0-0.05); Absolute Lymphocytes 0.6 10^3/uL (1.2-3.4); Absolute Monocytes 1.4 10^3/uL (0.1-0.6); Absolute Neutrophils 12.8 10^3/uL (1.4-6.5); Hematocrit 31.6 % (39.0-52.0); Hemoglobin 10.2 g/dL (13.0-18.0); Mean Corp Hgb Conc. 32.3 g/dL (33.0-37.0); Mean Platelet Volume 9.2 fL (7.4-10.4); Nucleated Red Blood Cells % 0 % (-); Platelet Count 440 10^3/uL (130-400); Red Blood Cell Count 3.29 10^6/uL (4.70-6.10); Red Cell Dist. Width 14.8 % (11.5-14.5); White Blood Cell Count 15.2 10^3/uL (4.8-10.8)
[2023-11-02] MEDS: NOVOLOG FLEXPEN-HIGH RESISTANCE 4 UNITS SC (06:09)
[2023-11-02] MEDS: NOVOLOG FLEXPEN 12 UNITS SC (08:11)
[2023-11-02 08:12] LABS: Glucose - Point of Care 216 mg/dl (70-99)
[2023-11-02] MEDS: DESENEX/MITRAZOL/ZEASORB 1 APPLIC TOPICAL ×2 (08:12→20:48)
[2023-11-02] MEDS: LASIX 40 MG PO (08:13)
[2023-11-02] MEDS: PROTONIX 40 MG PO ×2 (08:14→20:48)
[2023-11-02] MEDS: MUCINEX 1200 MG PO ×2 (08:14→20:48)
[2023-11-02] MEDS: TOPROL XL 25 MG PO (08:14)
--- NOTE | 2023-11-02 08:34 | PN.DE.MGMTRT ---
Insulin Management
- -
11/02/2023: Diabetes Management Follow up:
Patient admitted 10/14 with lower abdominal abdominal pain, N&V. PMH: PAF, HTN, COPD, BPH, former tobacco smoker T2DM and allergic rhinitis.
CT A/P-->Stercoral colitis with severe constipation s/p disimpaction in the ER, s/p ex lap with subtotal colectomy- due to severe ischemic bowel on 10/15/2023. Noted for Septic shock requiring multiple pressors, LLL Community acquired PNA and Vent
dependent respiratory failure.
Prior to admission, pt was taking Metformin 500mg BID. Current A1C 6.2%.
Pt awake, A/O x3, resting in bed, pleasant, offers no complaints, able to discuss diabetes mgt.
POD #17 s/p subtotal colectomy, POD #13 s/p segmented sigmoid resection, POD # 8 washout of hematoma revision of end ileostomy, POD 1 revision of ileostomy.
Remains on TPN.
In addition to TPN remains npo.
Q6 hour NovoLog reduced to 8 units due to NPO status, Lantus 20 units in am @10.
Fasting glucose this AM 216. Will resume 12 units novolog when diet resumes.
Will follow
Diabetes History
- -
Type of Diabetes: 2
Pre-Admission Diabetes Regimen
11/01/23 11/01/23 11/02/23
:52 11: 04:51
Creatinine Cancelled 0.6 L 0.7
Lab Results
Hemoglobin A1c 6.2 % (4.0-5.6) H 10/16/23 03:28
Insulin Pump Settings
IP Diabetes Regimen
11/01/23 11/01/23 11/01/23
:52 11:24 12:02
Glucose Cancelled 135 H
POC Glucose 140 H
11/01/23 11/01/23 11/01/23
17:22 18:11 23:32
Glucose
POC Glucose 221 H 233 H 184 H
11/02/23 11/02/23 11/02/23
04:51 05:57 08:00
Glucose 212 H
POC Glucose 206 H 216 H
Patient Education
--- NOTE | 2023-11-02 08:37 | PTCARENOTE ---
Pt AAOx3, flat and sounds depressed. Encouragement offered . TPN at 62cc /hr. Ice chips at bedside. .Celaya in place draining yellow fluid. Mid line Aquacell in place with shadowing marked from PACU. Pt remains on 4L O2 . Stoma is red. Stool in ibag
--- NOTE | 2023-11-02 09:09 | W.PN.PUL3 ---
Today's Communication / Plan
-
PFT from 2014 confirming COPD, will add spiriva/proair PRN
Ongoing cough complaints, denies SOB. Counseled to use inhalers
COPD education
Encouraged PT/OT postop
Ongoing management per team
Assessment
-
73-year-old male former tobacco smoker with past medical history of A-fib on Eliquis, hypertension, DM type II, BPH, history of COPD and allergic rhinitis who presents with lower abdominal pain, nausea/vomiting. Symptoms started last night and he
reports constipation for few days. Last BM about 3 days ago. Initial vitals in the ER showed he was in rapid A-fib with VR of 139 bpm, afebrile to 98.4 �F, breathing at 27 breaths minute, hypotensive to 76/59, and SpO2 93% on room air. EKG
confirmed A-fib with RVR. Labs showed leukocytosis to 20.4, creatinine 1.5, lactate 7.4, and T. bili 1.7. Blood culture collected. CT abdomen/pelvis showed fecal impaction without evidence for bowel obstruction. CXR showed retrocardiac
opacification concerning for left lower lobe pneumonia. He was given aztreonam/Flagyl in the ER, fentanyl, morphine, total of 3 L NS 0.9% and Zofran. He was admitted to the ICU for close monitoring with critical care services consulted for
additional management/recommendations. Pulmonary call back on 10/22/2023 for yeast on the sputum culture from endotracheal aspiration.
Impression:
Yeast on sputum culture
CAP involving LLL
Bilateral pleural effusions due to acute HFpEF
Persistent leukocytosis
Hyperglycemia
Weak cough
Stercoral colitis with severe constipation s/p disimpaction in the ER
Status post exploratory laparotomy/subtotal colectomy-diagnosis bowel ischemia. OR date: 10/15/2023
S/p repeat ex lap with hematoma washout and revision of end ileostomy due to ischemia - OR date 10/25/2023
Abdominal pain due to above
Septic shock due to above in the setting of left lower lobe CAP - shock state resolved
Lactic acidosis - resolved
Acute respiratory failure with hypoxia-requiring intubation mechanical ventilation.
Intubated 10/15/2023, extubated 10/19
JOSE - resolved
A-fib with RVR - now rate controlled
Elevated INR
Transaminitis with elevated T. bili + elevated ALP - now normalized
Abnormal urinalysis with +1 leukocyte esterase
Chronic conditions [employer]:
Paroxysmal A-fib on Eliquis
DM type II, BPH
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
Allergic rhinitis
Hypertension
Moderate COPD
PFT 11/14/13: FEV1 1.98L 52%, FVC 3.61L 72%, ratio 54. Post FEV1 2.19L 58%
Former tobacco use disorder with [id number] history, quit about 15 years ago
Plan:
Respiratory status remained stable-currently on room air
Tolerated extubation 10/20/2023
Has history of COPD, PFTs from 2013 reviewed with moderate obstruction
Complaints of coughing, will add spiriva/proair to regiment to continue as OP--reviewed with patient
COPD education
Chest x-ray 10/30/2023-decrease in left lower lobe opacifications, no evidence for CHF
Prior CXR reviewed, improving
Cultures reviewed
Sputum 10/19/2023 with yeast
Infectious disease following-correspondence reviewed
Follow leukocytosis-slowly improving
Antibiotics and antifungals if needed per infectious disease-currently on Zosyn and doxycycline
s/p ceftriaxone (10/17 - 10/22) + s/p cefepime (10/14 - 10/17) and lastly s/p micafungin (10/14 - 10/15)
Status post exploratory laparotomy, subtotal colectomy on 10/15/2023.
Bowel ischemia involving transverse and descending colon: Noted
Status post colon partial colectomy sigmoid and creation of end ileostomy 10/18/2023
Continue with broad-spectrum antibiotics to cover intra-abdominal source as well as pneumonia.
Discontinued micafungin 10/17/2019.
Currently on TPN; diet slowly being advanced per surgery
Surgery following-correspondence reviewed
Monitor ostomy closely-might need revision
Cardiology following-correspondence reviewed
Atrial fibrillation rate controlled
Echocardiogram 11/13-EF 60-65%, trace mitral regurgitation, mildly dilated right atrium, aortic sclerosis without stenosis, rhythm rapid atrial fibrillation
Continue to replete electrolytes as needed
Heparin drip-eventual change to Eliquis-keep on heparin as patient might require ostomy revision
Follow hemoglobin and platelet count
Transfuse as needed
DVT prophylaxis-on heparin
GI prophylaxis-on pantoprazole
Nutrition per surgery-advance diet in addition to TPN
Physical/Occupational Therapy
Reviewed with nursing
Outpatient pulmonary follow-up
DNR-Limited
Diagnostic Data
CT abdomen/pelvis with IV contrast 10/15/2023: Findings concerning for fecal impaction. Large amount of fecal material throughout the colon. Bilateral too small to characterize hypodense renal lesions likely benign cysts. Severe atherosclerotic
vascular disease. Solid noncalcified left lower lobe pulmonary nodule. Continued surveillance recommended.
CT Abd/pelvis with IV contrast 10/24/2023: Status post subtotal colectomy. Moderate ascites is present in all 4 quadrants, new since prior examination of October 15, 2023. There is no evidence of a focal collection to suggest an abscess. Bilateral
pleural effusions, left slightly greater than right. Adjacent compressive atelectasis within the posterior lower lungs. Liver contour appears subtly nodular, suggestive of cirrhosis. No evidence of a focal hepatic mass lesion. The rectum is
distended with stool, transverse dimension of 7.9 cm. There is mild perirectal and presacral edema with no significant rectal wall thickening identified. Moderate to severe subcutaneous edema.
CXR 10/15/2023: Findings suggesting mild left lower lobe pneumonia.
PFT 11/14/13: FEV1 1.98L 52%, FVC 3.61L 72%, ratio 54. Post FEV1 2.19L 58%, no BD response. TLC 7.34L 97%, DLCO 104% -- moderate obstruction
Subjective Data
-
Date of Service:
Date of Service: November 02, 2023
Chief Complaint: Pulmonary Follow Up (Pneumonia), Dyspnea Follow Up and Pneumonia Follow Up
Subjective:
No new SOB, admits to occasional cough with pain
Stable on RA
Objective Data
Data Reviewed
Vital Signs / I&O / Oxygen:
Vital Signs
Temp Pulse Resp BP Pulse Ox
99.8 F 117 25 108/90 95
11/02/23 07:30 11/02/23 08:14 11/02/23 08:00 11/02/23 08:14 11/02/23 08:50
Intake and Output
11/01/23 11/02/23 11/03/23
06:59 06:59 06:59
Intake Total 410 / 410 885 / 885
Output Total 4150 / 4150 830 / 830
Balance -3740 / -3740 55 / 55
SaO2 [CPAP] 95
SaO2 [A/C] 98
SaO2 95
Nasal Cannula flow liters per 4
minute
Physical Exam
General: Respiratory Distress (negative), Comfortable, Chills (negative) and Sweats (negative)
HEENT: Normocephalic, Anicteric and Moist Mucous Membranes
Cardiovascular: Regular Rhythm, Murmur and Peripheral Edema (+1 lower extremity edema bilaterally)
Respiratory: Wheeze (n), Crackles (Left base), Rhonchi ([place] bilaterally upon expiration) and Non-Labored Respirations
GI: Soft, Non Distended, Non Tender, Other (Hypoactive bowel sounds) and Other (RLQ ileostomy with dark blood/stool seen in ostomy bag)
Neurology: Awake, Alert, No Motor Deficits and Tremors (negative)
Skin: Warm, Good Color, Cyanosis (n), Jaundice (negative) and Rash (n)
Labs/Micro/Reports
Lab Data
11/02/23 04:51
11/02/23 04:51
Laboratory Results
11/01/23
13:15
APTT Cancelled
--- NOTE | 2023-11-02 09:21 | W.PN.ID1 ---
Date of Service
Date of Service: November 02, 2023
Today's Communication
- s/p ostomy revision 10/31
- peritoneal aerobic and anaerobic cultures pending
- continue zosyn day 9
- duration pending course
Assessment / Plan
S/p ex lap with subtotal colectomy for ischemic colitis - 10/15/23
S/p segmental sigmoid resection, end ileostomy and abd wound closure 10/18/23
S/p Exploratory laparotomy, small bowel resection, creation end ileostomy 10/25/23
Anasarca
recent diagnosis of lyme arthritis of R knee - (by outpatient by PCP)
reported penicillin allergy (unknown rxn)
Leukocytosis - persists today
- s/p ostomy revision 10/31
- peritoneal aerobic and anaerobic cultures pending
- continue zosyn day 9
- duration pending course
- completed 4 weeks of doxycycline 10/04 through 10/31
- follow cbc daily, follow clinically
����������������������������������������������������������
Chief Complaint
-: Leukocytosis
Subjective / Review of Systems
afebrile
taken to the OR for exlap and revision of end ileostomy - distal 4 cm of stoma necrotic and resected
tolerating current therapies
no abdominal pain
main complaint is tiredness
Vital Signs / Physical Exam
Vital Signs
Vital Signs
Temp Pulse Resp BP Pulse Ox
99.8 F 117 25 108/90 95
11/02/23 07:30 11/02/23 08:14 11/02/23 08:00 11/02/23 08:14 11/02/23 08:50
Physical Exam
Constitutional: No Acute Distress and Chronically Ill
Cardiovascular: Regular Rate and S1/S2; Negative Murmur or Rub
Pulmonary: Clear and Symmetric; Negative Wheezes or Rales
Gastrointestinal: Soft, Non Tender, Non Distended, Normal Bowel Sounds and Other (stoma pink)
Skin: Warm and Dry; Negative Rash or Jaundice
Objective Data
Lab Data
Lab Results
11/02/23 04:51
11/02/23 04:51
PT 15.3 Sec (11.4-14.6) H 10/26/23 06:11
INR 1.20 10/26/23 06:11
APTT Cancelled 11/01/23 13:15
Estimated Creat Clear 108 ml/min 11/02/23 04:51
Lactic Acid 1.3 mmol/L (0.7-2.0) 10/25/23 05:27
Total Bilirubin 0.7 mg/dl (0.2-1.3) 10/31/23 03:54
AST 36 U/L (17-59) 10/31/23 03:54
ALT 23 U/L (0-50) 10/31/23 03:54
Alkaline Phosphatase 67 U/L (38-126) 10/31/23 03:54
Most recent labs reviewed.
Micro Results:
11/01/23 19:05 Anaerobic Culture - Pending
Abdomen
11/01/23 19:05 Wound Culture - Pending
Abdomen Gram Stain - Pending
10/19/23 13:41 Respiratory Culture - Final
Endotracheal Yeast
Gram Stain - Final
10/15/23 05:43 Blood Culture - Final
Blood/Venous No Growth - Final Report
10/15/23 09:57 Urine Culture - Final
Urine NO GROWTH
--- NOTE | 2023-11-02 10:29 | W.PN.GS2 ---
Today's Communication / Plan
-
Patient to continue to be NPO for now. Will advance to clear liquid diet if he remains stable into tomorrow. Continue TPN for now.
Assessment / Plan
-
73 yo male with h/o of AFIB on Eliquis presenting with abdominal pain with fecal impaction on initial CT, disimpacted in ED but without relief in pain. Taken to the OR emergently on 10/15 as he clinically deteriorated with increasing abdominal pain,
currently POD#1 after second revision of his end ileostomy.
POD #18 s/p ex lap with subtotal colectomy in a damage control operation
POD #15 s/p segmental sigmoid resection, end ileostomy and abd wound closure
POD#8 s/p ex lap, washout hematoma; revision of end ileostomy for ischemia
POD#1 s/p ex lap, exploratory laparotomy, revision end ileostomy for ischemia
AFVSS
Colorectal surgery consulted yesterday, input appreciated -> Ileoscopy was performed at bedside which showed that the mucosa of the distal 4cm of bowel was ischemic and that the more proximal mucosa appeared normal
Decision was made to go for ileostomy revision
During procedure, distal 4cm of stoma necrotic was resected. Mesentery was maximally preserved. [place] and healthy stoma was seen at the conclusion of the procedure.
Stoma functioning with pink mucosa
Leukocytosis present post surgery, will continue to monitor
Anemia present but Hb improved, will continue to monitor
Plan:
--Continue TPN as PO intake still remains quite low, TPN renewed yesterday
--Continue PPI BID
--Continue Doxy and Zosyn- follow ID recommendations, input appreciated
--Diabetes DRILLER MACHINE to continue managing diabetes, input appreciated
--Analgesics/antiemetics as needed
--Continuing Celaya catheter for now until he has recovered more from surgery
--Holding Heparin for atleast 24 hours post surgery
--OOB/ambulate as tolerated, PT/OT following
--SCD's while in bed
Subjective Data
-
Date of Service: November 02, 2023
Patient has been feeling well after his procedure yesterday. Reports no abdominal pain, nausea, or vomiting.
Objective Data
-
Intake and Output
11/01/23 11/02/23 11/03/23
06:59 06:59 06:59
Intake Total 410 / 410 885 / 885
Output Total 4150 / 4150 830 / 830
Balance -3740 / -3740 55 / 55
Intake:
Oral fluids 410 / 410
IV fluids (Total) 96 / 96
Norm 50 / 50
Tpn 46 / 46
IV piggybacks 200 / 200
TPN/PPN 589 / 589
Output:
Liquid stool amount 150 / 150
Ileostomy 150 / 150
Urine, Celaya 3550 / 3550 830 / 830
Urine, Voided 450 / 450
Vital Signs
Temp Pulse Resp BP Pulse Ox
99.8 F 116 26 111/84 96
11/02/23 07:30 11/02/23 09:00 11/02/23 09:00 11/02/23 09:00 11/02/23 09:00
Lab Results
11/02/23 04:51
11/02/23 04:51
Calcium 8.1 mg/dl (8.4-10.2) L 11/02/23 04:51
Phosphorus 3.1 mg/dl (2.5-4.5) 10/31/23 03:54
Magnesium 1.9 mg/dl (1.6-2.3) 10/31/23 03:54
Total Bilirubin 0.7 mg/dl (0.2-1.3) 10/31/23 03:54
Direct Bilirubin 0.2 mg/dl (0.0-0.4) 10/26/23 06:11
AST 36 U/L (17-59) 10/31/23 03:54
ALT 23 U/L (0-50) 10/31/23 03:54
Alkaline Phosphatase 67 U/L (38-126) 10/31/23 03:54
Total Protein 5.1 g/dl (6.3-8.2) L 10/31/23 03:54
Albumin 2.5 g/dl (3.5-5.0) L 10/31/23 03:54
Physical Exam
-
Gen: NAD
Abd: soft, non tender, mildly distended, stoma with pink mucosa, brown stool and gas in the bag
[2023-11-02] MEDS: SPIRIVA RESPIMAT 2.5 MCG 2 PUFF INH (11:03)
--- NOTE | 2023-11-02 11:04 | W.PN.CRS1 ---
Today's Communication / Plan
-
tpn
iv abx
diet per general surgery
Assessment/Plan
-
POD#1 Exploratory laparotomy, revision end ileostomy
- TPN per general surgery, will defer to them for when po intake is appropriate
- Continue IV antibiotics per ID
- Celaya catheter in place for I/O's
- Recommend hold heparin gtt for 24 hours post surgery
- Will defer care to general surgery, please contact us if further issues arise
Subjective Data
Procedure
11/01/2023- Exploratory laparotomy, revision end ileostomy
Subjective Data
Date of Service: November 02, 2023
Patient has no complaints. He denies nausea or vomiting. His pain is controlled. His stoma is red and warm.
Objective Data
-
Vital Signs
Temp Pulse Resp BP Pulse Ox
99.8 F 116 26 111/84 96
11/02/23 07:30 11/02/23 09:00 11/02/23 09:00 11/02/23 09:00 11/02/23 09:00
Intake & Output
11/01/23 11/02/23 11/03/23
06:59 06:59 06:59
Intake Total 410 / 410 885 / 885
Output Total 4150 / 4150 830 / 830
Balance -3740 / -3740 55 / 55
Intake:
Oral fluids 410 / 410
IV fluids (Total) 96 / 96
Norm 50 / 50
Tpn 46 / 46
IV piggybacks 200 / 200
TPN/PPN 589 / 589
Output:
Liquid stool amount 150 / 150
Ileostomy 150 / 150
Urine, Celaya 3550 / 3550 830 / 830
Urine, Voided 450 / 450
Lab Results
11/02/23 04:51
11/02/23 04:51
Physical Exam
-
General: No Acute Distress and AOx3
Abdomen: Soft, Non Distended, Non Tender and Other (stoma warm and pink with function)
Skin: Warm and Dry
[2023-11-02 11:21] LABS: Glucose - Point of Care 148 mg/dl (70-99)
[2023-11-02] MEDS: LANTUS 0.2 UNITS SC (11:28)
[2023-11-02] MEDS: ZOSYN IV (11:30)
--- NOTE | 2023-11-02 11:53 | W.PN.CARDCBS ---
Addendum entered and electronically signed by Jarod Pearson, DO 11/02/23 13:39:
General: No acute distress, AAOX3
Neck: Negative JVD
Heart: Irregularly irregular, Negative S3 positive S1/S2, Negative S4, No murmur
Lungs: CTA b/l, negative wheezes/rales/rhonchi
Abd: Positive BS, NT/ND, neg rebound/rigidity/guarding
Ext: Negative cyanosis/clubbing/edema
Neuro: nonfocal
Addendum entered and electronically signed by Jarod Pearson, DO 11/02/23 12:44:
I saw and examined the patient.
The Timekeeper Supervisor's note was reviewed and I agree with the note.
Comment:
Plan:
Resume anticoagulation once ok with surgery
Cont Toprol XL and Lasix PO. HR elevated overnight but has been stable this AM
AFib is permanent. Was not on AV aileen blocking agents as outpt
Cont post op care
Cont nutrition.
Discussed with nursing.
Original Note:
Today's Communication / Plan
-
Heparin gtt on hold
Cont Toprol XL and Lasix PO
Impression / Plan
-
PCP: Dr. Herrera
Cardiology: Dr. Simms, last seen 06/29/22
Impression:
Admitted with stercoral colitis and sepsis 10/15/23
s/p s/p ex lap with subtotal colectomy in a damage control operation 10/15/23
s/p segmental sigmoid resection, end ileostomy and abd wound closure 10/18/23
s/p exploratory lap, small bowel resection, creation end ileostomy, secondary to stoma with necrotic mucosa 10/25/2023
s/p exploratory lap and revision of end ileostomy 11/01/23
Permanent Afib with RVR
Acute HFpEF
LLL PNA
Leukocytosis
post op anemia
JOSE
Hypernatremia
Hypokalemia
Elevated LFTs
DM 2
COPD
Echo 10/25/23: EF 60-65%, trace MR, aortic sclerosis without stenosis
Plan:
-Patient had revision of the end of his ileostomy 11/01/23. HD stable on 11/02/23.
-Recorded bed scale weight is stable. Cont Lasix 40 mg PO daily.
-Patient was taking HCTZ 25 mg daily as part of lisinopril/HCTZ combo pill prior to admission, but HCTZ now stopped. JORY has not been restarted. BP intermittently elevated 134/95, 157/105.
-EF preserved on echo.
-New to Toprol XL 25 mg PO daily on 10/31/23. Lopressor 2.5 mg IV PRN also ordered.
-Afib is permanent and previously rate controlled without meds prior to admission
-Eliquis has been on hold since admission. Heparin gtt on hold for at least 24 hours following surgery 11/01/23
HPI: Patient came to [facility] 10[facility]15/23 with abdominal pain and constipation and was admitted with sepsis and stercoral colitis, cardiology is now consulted for acute HF. Patient came to ER with abdominal pain and constipation and appeared to be septic.
He was started on pressors and later taken to the OR same day for a damage control operation with subtotal colectomy. He returned to the OR 10/18/23 for wound closure and end ileostomy. Patient has received 17.25 liters of IVFs since admission. He is
now allowed sips of water and is receiving TPN. Cardiology is asked to see patient for possible acute HF. His weight is overall up 10 lbs from admission despite NPO and bowel surgery. He denies edema, bloating or SOB. His pro-BNP was 3680 yesterday
and he was started on Lasix 40 mg IV daily. Patient denies chest pain. He has permanent Afib and HRs are rapid, but he denies palpitations. He was not taking a rate controlling med prior to admission, but was started on Toprol XL 50 mg BID
yesterday.
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
Subjective
Date of Service: November 02, 2023
He is tired, no SOB
Objective
Labs:
11/02/23 04:51
11/02/23 04:51
Labs
Hgb 10.2 g/dL (13.0-18.0) L 11/02/23 04:51
Hct 31.6 % (39.0-52.0) L 11/02/23 04:51
Plt Count 440 10^3/uL (130-400) H 11/02/23 04:51
PT 15.3 Sec (11.4-14.6) H 10/26/23 06:11
INR 1.20 10/26/23 06:11
APTT Cancelled 11/01/23 13:15
Sodium 136 mmol/L (135-145) 11/02/23 04:51
Potassium 4.8 mmol/L (3.5-5.1) 11/02/23 04:51
BUN 24 mg/dl (9-20) H 11/02/23 04:51
Creatinine 0.7 mg/dL (0.7-1.3) 11/02/23 04:51
Glucose 212 mg/dl (70-99) H 11/02/23 04:51
Vital Signs and I&O:
Vital Signs
Temp Pulse Resp BP Pulse Ox
99.8 F 118 20 111/84 98
11/02/23 07:30 11/02/23 11:06 11/02/23 11:06 11/02/23 09:00 11/02/23 11:06
Vital Signs
Temp Pulse Resp BP Pulse Ox
99.8 F 118 20 111/84 98
11/02/23 07:30 11/02/23 11:06 11/02/23 11:06 11/02/23 09:00 11/02/23 11:06
Intake & Output
10/31/23 11/01/23 11/02/2324
06:59 06:59 06:59 06:59
Intake Total 1349 / 1349 410 / 410 885 / 885
Output Total 4260 / 4260 4150 / 4150 830 / 830
Balance -2911 / -2911 -3740 / -3740 55 / 55
Physical Exam
Physical Exam
GEN: AAOx3
HEENT: MMM
LUNGS: No audible wheeze
CV: Afib on tele
ABD: ND
EXT: No edema B/L
NEURO: Gross non-focal
SKIN: No rash
--- NOTE | 2023-11-02 12:04 | W.PN.HOSP.TC ---
Today's Communication/Plan
-
follow post-op surgical recs
continue IV Abx and TPN
Assessment / Plan
Assessment / Plan
Assessment:
Acute surgical abdomen with stercoral colitis with severe ischemic bowel
Septic shock POA resolved; off pressors, s/p stress dose steroids
- s/p disimpaction in ER
- clinically unstable emergent OR 10/14: ex lap, subtotal colectomy for mesenteric ischemia, ischemic colon
- s/p OR 10/17: exploratory laparotomy, partial colectomy (sigmoid), creation end ileostomy
- s/p OR 10/24: Exploratory laparotomy, small bowel resection, creation end ileostomy (due to necrosis at prior ostomy site)
- s/p OR 10/31: Exploratory laparotomy, revision end ileostomy
- continue Zosyn per ID. day 9
- TPN per GS. Diet per GS
- continue PPI BID
Persistent Elevating Leukocytosis despite extended course IV abx as above
- Repeat CT abd/pelvis noted ascites possible cirrhosis moderate to severe subcutaneous edema.
- IR eval requested for diagnostic/therapeutic paracentesis however noted ascites too small as per IR review of imaging
- Ascites was noted to be old blood as seen during above repeat surgical exploration, hematoma washout performed
- ID eval appreciated
- BNP elevated, ECHO noted preserved EF 60-65% no significant change from prior ECHO 2020
- continue Lasix 40mg daily
- cardio eval appreciated
- post-op ileus nausea hiccups, patient briefly strict NPO post procedure, symptoms subsequently improved, gradually advanced to LRD as per surgery
Acute Blood Loss Anemia following repeat procedure as above
Iron Deficiency
Anemia of Chronic disease
- total 2 PRBC transfusions with Lasix since above procedure 10/24
- IV Iron supplementation completed, eventual transition to PO when able
Community acquired PNA, LLL
Vent dependent respiratory failure
- extubated 10/18
- wean O2 as tolerated
- continue Zosyn per ID
JOSE from septic shock resolved
Acute metabolic acidosis
- monitor renal function
- monitor labs while on TPN
A. Fib with RVR
- likely driven by septic shock
- monitor rates; transitioned to PO Metoprolol 25mg q6h further transitioned to long acting 50 mg BID, switched to scheduled IV metoprolol due to strict NPO as above
- hold IV heparin drip until cleared by GS
- cardio eval appreciated
Lyme arthritis
- continue Doxycycline through 10/31
Hypernatremia resolved
Mild transaminitis
- resolved
Hx of Essential HTN
- holding JORY/HCTZ
- started on Lasix as above
Type 2 DM
- holding Metformin
- completed critical care insulin protocol
- continue SSI
- Diabetes BATTERY TESTER following
Hx of COPD
Former tobacco use disorder with [id number]-htyx history, quit about 15 years ago
Hypokalemia
Hypophosphatemia
- monitor and replete as necessary
Urinary retention
- continue Flomax
- Celaya catheter, eventual trial of void
10/25 mild Testicular Ecchymosis Painless, likely superficial bruising healing
- scrotal US appreciated no acute abn's
PT/OT appreciated Acute Rehab
DVT ppx: SCDs
Code: DNR
Anticipated Discharge: > 48 hours
Subjective/Interval History
-
Date of Service: November 02, 2023
s/p stoma resection/ostomy revision yesterday
denies any new complaints at present
Objective Data
-
Labs:
Laboratory Results
11/02/23
04:51
WBC 15.2 H
Hgb 10.2 L
Hct 31.6 L
Plt Count 440 H
Sodium 136
Potassium 4.8
Chloride 98
Carbon Dioxide 28
BUN 24 H
Creatinine 0.7
Glucose 212 H
Calcium 8.1 L
Vital Signs:
Vital Signs
Temp Pulse Resp BP Pulse Ox
98.5 F 106 23 115/90 97
11/02/23 11:30 11/02/23 11:30 11/02/23 11:30 11/02/23 11:30 11/02/23 11:30
I&O
11/01/23 11/02/23 11/03/23
06:59 06:59 06:59
Intake Total 410 / 410 885 / 885
Output Total 4150 / 4150 830 / 830
Balance -3740 / -3740 55 / 55
Physical Exam
-
General: No Apparent Distress
HEENT: Normocephalic
Respiratory: Negative Wheezes
Cardiac: Regular Rhythm and S1/S2
GI: Soft and Ostomy
Neuro: AO x 3
Psych: Calm
Data Reviewed
-
Total Time Spent with Patient (in minutes): 44
Labs: Labs Reviewed by me
[2023-11-02] MEDS: NOVOLOG FLEXPEN 8 UNITS SC ×3 (12:15→23:40)
[2023-11-02] MEDS: NOVOLOG FLEXPEN-HIGH RESISTANCE 1 UNITS SC (12:17)
[2023-11-02] MEDS: FLOMAX 0.4 MG PO (16:46)
[2023-11-02 18:08] LABS: Glucose - Point of Care 177 mg/dl (70-99)
[2023-11-02] MEDS: Parenteral Nutrition, Central 1480 IV (20:52)
[2023-11-02 23:52] LABS: Glucose - Point of Care 199 mg/dl (70-99)
[2023-11-03] VITALS (19 sets, daily range): BP systolic 95–119; BP diastolic 68–87; PULSE 84–140; O2SAT 98–99; BMI 26.8
[2023-11-03 03:25] LABS: % Basophils 0.2 % (0-2); % Immature Granulocytes 1.3 % (0-0.5); % Lymphocytes 4.5 % (20.5-51.1); % Monocytes 10.5 % (1.7-9.3); % Neutrophils 82.5 % (42.2-75.2); Absolute Eosinophils 0.2 10^3/uL (0-0.7); Absolute Immature Granulocytes 0.2 10^3/uL (0-0.05); Absolute Lymphocytes 0.9 10^3/uL (1.2-3.4); Absolute Neutrophils 15.6 10^3/uL (1.4-6.5); Hematocrit 27.2 % (39.0-52.0); Hemoglobin 8.8 g/dL (13.0-18.0); Mean Corp Hgb Conc. 32.4 g/dL (33.0-37.0); Mean Corpuscular Hgb 29.7 pg (27.0-31.0); Mean Corpuscular Volume 91.9 fL (80.0-94.0); Mean Platelet Volume 9.4 fL (7.4-10.4); Nucleated Red Blood Cells % 0 % (-); Platelet Count 386 10^3/uL (130-400); Red Blood Cell Count 2.96 10^6/uL (4.70-6.10); Red Cell Dist. Width 14.8 % (11.5-14.5)
[2023-11-03 03:51] LABS: Blood Urea Nitrogen 26 mg/dl (9-20); Calcium 8.3 mg/dl (8.4-10.2); Carbon Dioxide 29 mmol/L (22-30); Chloride 98 mmol/L (98-107); Estimated Creatinine Clearance > 125 ml/min; Glucose 163 mg/dl (70-99); Potassium 4.4 mmol/L (3.5-5.1); Sodium 135 mmol/L (135-145); eGFR > 60.00
[2023-11-03] MEDS: ZOSYN 100 IV ×4 (03:52→21:29)
[2023-11-03] MEDS: NOVOLOG FLEXPEN-HIGH RESISTANCE 2 UNITS SC ×3 (05:39→23:57)
[2023-11-03] MEDS: NOVOLOG FLEXPEN 8 UNITS SC (05:39)
[2023-11-03 05:47] LABS: Glucose - Point of Care 187 mg/dl (70-99)
--- NOTE | 2023-11-03 05:47 | PTCARENOTE ---
No acute events overnight. Stoma pink and budded with small amount of stool output. Patient expressed frustration with still being in the hospital. Emotional support provided.
--- NOTE | 2023-11-03 07:29 | PN.DE.MGMTRT ---
Insulin Management
- -
11/03/2023: Diabetes Management F/U:
Patient admitted 10/14 with lower abdominal abdominal pain, N&V. PMH: PAF, HTN, COPD, BPH, former tobacco smoker T2DM and allergic rhinitis.
CT A/P-->Stercoral colitis with severe constipation s/p disimpaction in the ER, s/p ex lap with subtotal colectomy- due to severe ischemic bowel on 10/15/2023. Noted for Septic shock requiring multiple pressors, LLL Community acquired PNA and Vent
dependent respiratory failure.
Prior to admission, pt was taking Metformin 500mg BID. Current A1C 6.2%.
Pt awake, resting in bed, flat affect, offers no complaints, able to discuss diabetes mgt.
POD #18 s/p subtotal colectomy, POD #14 s/p segmented sigmoid resection, POD # 9 washout of hematoma revision of end ileostomy, POD#2 s/p revision of ileostomy. Remains on TPN and NPO. 11/01 Q6 hour NovoLog reduced to 8 units due to NPO status,
Lantus 20 units in am @10.
Fasting glucose this AM 216. Q6hr POC glucose range 148 to 216, requiring additional corrective insulin.
Will increase Q6 hr NovoLog to 12 units and Lantus to 220 units in AM given plans to increase TPN rate.
Will follow
Diabetes History
- -
Type of Diabetes: 2 requiring insulin
Pre-Admission Diabetes Regimen
11/03/23
03:07
Creatinine 0.6 L
Lab Results
Hemoglobin A1c 6.2 % (4.0-5.6) H 10/16/23 03:28
Insulin Pump Settings
IP Diabetes Regimen
11/02/23 11/02/23 11/02/23
08:00 11:10 17:58
Glucose
POC Glucose 216 H 148 H 177 H
11/02/23 11/03/23 11/03/23
23:38 03:07 05:36
Glucose 163 H
POC Glucose 199 H 187 H
Patient Education
[2023-11-03] MEDS: SPIRIVA RESPIMAT 2.5 MCG 2 PUFF INH (07:47)
[2023-11-03] MEDS: LASIX 40 MG PO (08:11)
[2023-11-03] MEDS: MUCINEX 1200 MG PO ×2 (08:11→19:35)
[2023-11-03] MEDS: PROTONIX 40 MG PO ×2 (08:11→19:35)
[2023-11-03] MEDS: TOPROL XL 25 MG PO (08:12)
[2023-11-03] MEDS: DESENEX/MITRAZOL/ZEASORB 1 APPLIC TOPICAL ×2 (08:13→19:35)
--- NOTE | 2023-11-03 08:26 | PTCARENOTE ---
Pt AAOxx3, very quiet and flat. TPN at 62 ml hr, pt may have sips clear liquids. only will take water or ice. Faint BS heard in lower quad. Pt on 2l O2 . Pt is grateful for all care.
--- NOTE | 2023-11-03 08:36 | OR.RPT ---
Operative Report
Operative Report
Primary Surgeon: Debra
Assisting Surgeon: Nithin
Pre-op Diagnosis: Ischemic stoma
Post-op Diagnosis: Same
Procedure Performed: Exploratory laparotomy, revision end ileostomy
Anesthesia Type: GETA
Specimen / Cultures: Ileostomy, intra-abdominal fluid cx
Estimated Blood Loss: 10cc
Complications: None immediate
Operative Findings: Filmy adhesions forming, gently bluntly disrupted; distal 4cm of stoma necrotic, resected. Mesentery scored but maximally preserved. Brisk bleeding at cut bowel edge. Stoma pink and healthy at conclusion of the procedure.
Date of Surgery: 11/01/23
Indications: 73M with ischemic stoma. Plan for exploratory laparotomy, bowel resection, creation of end ileostomy.
Description of procedure: The patient was placed on the operating table in the supine position. General anesthesia was induced. A time-out was completed verifying correct patient, procedure, site, positioning, and special equipment prior to
beginning this procedure. The stoma was whip stitched closed. The abdomen was prepped and draped in the usual sterile fashion. The stoma was liberated from the skin by cutting the sutures and using gentle blunt dissection. The old midline incision
was opened bluntly and the abdomen entered. About 200cc intra-abdominal fluid was encountered, this was cultured. The small bowel was inspected from ligament of treitz to the stoma and all appeared viable except for the final few centimeters. The
most distal few centimeters of the terminal ileum were resected with a BARRETT 60mm purple load stapler.The mesentery was maximally preserved. It was scored to aid mobilization. The end of the bowel was observed for several minutes and appeared perfused
and responded with peristalsis to a finger flick. The ileum was then gently passed through the abdominal wall defect and gently secured with a lit. The abdomen was irrigated with warm saline, seprafilm was placed around the stoma and under the
midline closure, and the midline incision was closed with #1 PDS staratfix. Skin was closed with jabari. The stoma was matured with 2-0 vicryl sutures. Brisk bleeding was visible in the cut edge of the bowel wall circumferentially prior to
maturation. An aquacel dressing and an appliance were placed. The stoma mucosa appeared pink.
The patient tolerated the procedure well and was taken to the postanesthesia care unit in stable condition.
The assistance of Dr. Weller was required due to the complexity of the procedure. During the procedure he assisted with retraction, resection, and closure of the wound.
--- NOTE | 2023-11-03 08:49 | W.PN.PUL3 ---
Today's Communication / Plan
-
Tolerating inhalers, cough improved
COPD education
Can follow as outpatient for further management
Further postop care per team
We will sign off at this time, please call with questions
Assessment
-
73-year-old male former tobacco smoker with past medical history of A-fib on Eliquis, hypertension, DM type II, BPH, history of COPD and allergic rhinitis who presents with lower abdominal pain, nausea/vomiting. Symptoms started last night and he
reports constipation for few days. Last BM about 3 days ago. Initial vitals in the ER showed he was in rapid A-fib with VR of 139 bpm, afebrile to 98.4 �F, breathing at 27 breaths minute, hypotensive to 76/59, and SpO2 93% on room air. EKG
confirmed A-fib with RVR. Labs showed leukocytosis to 20.4, creatinine 1.5, lactate 7.4, and T. bili 1.7. Blood culture collected. CT abdomen/pelvis showed fecal impaction without evidence for bowel obstruction. CXR showed retrocardiac
opacification concerning for left lower lobe pneumonia. He was given aztreonam/Flagyl in the ER, fentanyl, morphine, total of 3 L NS 0.9% and Zofran. He was admitted to the ICU for close monitoring with critical care services consulted for
additional management/recommendations. Pulmonary call back on 10/22/2023 for yeast on the sputum culture from endotracheal aspiration.
Impression:
Yeast on sputum culture
CAP involving LLL
Bilateral pleural effusions due to acute HFpEF
Persistent leukocytosis
Hyperglycemia
Weak cough
Stercoral colitis with severe constipation s/p disimpaction in the ER
Status post exploratory laparotomy/subtotal colectomy-diagnosis bowel ischemia. OR date: 10/15/2023
S/p repeat ex lap with hematoma washout and revision of end ileostomy due to ischemia - OR date 10/25/2023
Abdominal pain due to above
Septic shock due to above in the setting of left lower lobe CAP - shock state resolved
Lactic acidosis - resolved
Acute respiratory failure with hypoxia-requiring intubation mechanical ventilation.
Intubated 10/15/2023, extubated 10/19
JOSE - resolved
A-fib with RVR - now rate controlled
Elevated INR
Transaminitis with elevated T. bili + elevated ALP - now normalized
Abnormal urinalysis with +1 leukocyte esterase
Chronic conditions MANAGER MARKET:
Paroxysmal A-fib on Eliquis
DM type II, BPH
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
Allergic rhinitis
Hypertension
Moderate COPD
PFT 11/14/13: FEV1 1.98L 52%, FVC 3.61L 72%, ratio 54. Post FEV1 2.19L 58%
Former tobacco use disorder with 36-gupi-dxlz history, quit about 15 years ago
Plan:
Respiratory status remained stable-currently on room air
Tolerated extubation 10/20/2023
Has history of COPD, PFTs from 2013 reviewed with moderate obstruction
Complaints of coughing, will add spiriva/proair to regiment to continue as OP--reviewed with patient
COPD education
Chest x-ray 10/30/2023-decrease in left lower lobe opacifications, no evidence for CHF
Prior CXR reviewed, improving
Cultures reviewed
Sputum 10/19/2023 with yeast
Infectious disease following-correspondence reviewed
Follow leukocytosis-slowly improving
Antibiotics and antifungals if needed per infectious disease-currently on Zosyn and doxycycline
s/p ceftriaxone (10/17 - 10/22) + s/p cefepime (10/14 - 10/17) and lastly s/p micafungin (10/14 - 10/15)
Status post exploratory laparotomy, subtotal colectomy on 10/15/2023.
Bowel ischemia involving transverse and descending colon: Noted
Status post colon partial colectomy sigmoid and creation of end ileostomy 10/18/2023
Continue with broad-spectrum antibiotics to cover intra-abdominal source as well as pneumonia.
Discontinued micafungin 10/17/2019.
Currently on TPN; diet slowly being advanced per surgery
Surgery following-correspondence reviewed
Monitor ostomy closely-might need revision
Cardiology following-correspondence reviewed
Atrial fibrillation rate controlled
Echocardiogram 11/13-EF 60-65%, trace mitral regurgitation, mildly dilated right atrium, aortic sclerosis without stenosis, rhythm rapid atrial fibrillation
Continue to replete electrolytes as needed
Heparin drip-eventual change to Eliquis-keep on heparin as patient might require ostomy revision
Follow hemoglobin and platelet count
Transfuse as needed
DVT prophylaxis-on heparin
GI prophylaxis-on pantoprazole
Nutrition per surgery-advance diet in addition to TPN
Physical/Occupational Therapy
Reviewed with nursing
Outpatient pulmonary follow-up
DNR-Limited
Diagnostic Data
CT abdomen/pelvis with IV contrast 10/15/2023: Findings concerning for fecal impaction. Large amount of fecal material throughout the colon. Bilateral too small to characterize hypodense renal lesions likely benign cysts. Severe atherosclerotic
vascular disease. Solid noncalcified left lower lobe pulmonary nodule. Continued surveillance recommended.
CT Abd/pelvis with IV contrast 10/24/2023: Status post subtotal colectomy. Moderate ascites is present in all 4 quadrants, new since prior examination of October 15, 2023. There is no evidence of a focal collection to suggest an abscess. Bilateral
pleural effusions, left slightly greater than right. Adjacent compressive atelectasis within the posterior lower lungs. Liver contour appears subtly nodular, suggestive of cirrhosis. No evidence of a focal hepatic mass lesion. The rectum is
distended with stool, transverse dimension of 7.9 cm. There is mild perirectal and presacral edema with no significant rectal wall thickening identified. Moderate to severe subcutaneous edema.
CXR 10/15/2023: Findings suggesting mild left lower lobe pneumonia.
PFT 11/14/13: FEV1 1.98L 52%, FVC 3.61L 72%, ratio 54. Post FEV1 2.19L 58%, no BD response. TLC 7.34L 97%, DLCO 104% -- moderate obstruction
Subjective Data
-
Date of Service:
Date of Service: November 03, 2023
Chief Complaint: Pulmonary Follow Up (Pneumonia), Dyspnea Follow Up and Pneumonia Follow Up
Subjective:
no new events, stable on RA
cough better with inhalers
Objective Data
Data Reviewed
Vital Signs / I&O / Oxygen:
Vital Signs
Temp Pulse Resp BP Pulse Ox
98.3 F 83 19 112/72 97
11/03/23 07:10 11/03/23 08:11 11/03/23 08:00 11/03/23 08:11 11/03/23 08:00
Intake and Output
11/02/23 11/03/23 11/04/23
06:59 06:59 06:59
Intake Total 885 / 885 1144 / 1144
Output Total 830 / 830 1450 / 1450
Balance 55 / 55 -306 / -306
SaO2 [CPAP] 95
SaO2 [A/C] 98
SaO2 97
Nasal Cannula flow liters per 2
minute
Physical Exam
General: Respiratory Distress (negative), Comfortable, Chills (negative) and Sweats (negative)
HEENT: Normocephalic, Anicteric and Moist Mucous Membranes
Cardiovascular: Regular Rhythm, Murmur and Peripheral Edema (+1 lower extremity edema bilaterally)
Respiratory: Wheeze (n), Crackles (Left base), Rhonchi (Izard bilaterally upon expiration) and Non-Labored Respirations
GI: Soft, Non Distended, Non Tender, Other (Hypoactive bowel sounds) and Other (RLQ ileostomy with dark blood/stool seen in ostomy bag)
Neurology: Awake, Alert, No Motor Deficits and Tremors (negative)
Skin: Warm, Good Color, Cyanosis (n), Jaundice (negative) and Rash (n)
Labs/Micro/Reports
Lab Data
11/03/23 03:07
11/03/23 03:07
Microbiology
11/01/23 19:05 Abdomen Gram Stain - Preliminary
--- NOTE | 2023-11-03 09:19 | W.PN.ID1 ---
Date of Service
Date of Service: November 03, 2023
Today's Communication
- continue zosyn day 10; tentatively through 11/05; could switch to orals when taking pills
- follow clinically
Assessment / Plan
S/p ex lap with subtotal colectomy for ischemic colitis - 10/15/23
S/p segmental sigmoid resection, end ileostomy and abd wound closure 10/18/23
S/p Exploratory laparotomy, small bowel resection, creation end ileostomy 10/25/23
S/p Ostomy revisions 10/31
reported penicillin allergy
Leukocytosis - persists today
- while leukocytosis is increased, L shift is improved as is thrombocytosis
- peritoneal aerobic and anaerobic cultures pending - no growth to date; gram stain negative
- continue zosyn day 10; tentatively through 11/05; could switch to orals when taking pills
- follow clinically
����������������������������������������������������������
Chief Complaint
-: Leukocytosis
Subjective / Review of Systems
afebrile
bp stable
sat in the sun this am
at bedside
Vital Signs / Physical Exam
Vital Signs
Vital Signs
Temp Pulse Resp BP Pulse Ox
98.3 F 83 19 112/72 97
11/03/23 07:10 11/03/23 08:11 11/03/23 08:00 11/03/23 08:11 11/03/23 08:00
Physical Exam
Constitutional: No Acute Distress
Cardiovascular: Regular Rate and S1/S2; Negative Murmur or Rub
Pulmonary: Clear and Symmetric; Negative Wheezes or Rales
Gastrointestinal: Soft, Non Tender, Non Distended, Normal Bowel Sounds and Other (stoma pink)
Skin: Warm and Dry; Negative Rash or Jaundice
Objective Data
Lab Data
Lab Results
11/03/23 03:07
11/03/23 03:07
PT 15.3 Sec (11.4-14.6) H 10/26/23 06:11
INR 1.20 10/26/23 06:11
APTT Cancelled 11/01/23 13:15
Estimated Creat Clear > 125 ml/min 11/03/23 03:07
Lactic Acid 1.3 mmol/L (0.7-2.0) 10/25/23 05:27
Total Bilirubin 0.7 mg/dl (0.2-1.3) 10/31/23 03:54
AST 36 U/L (17-59) 10/31/23 03:54
ALT 23 U/L (0-50) 10/31/23 03:54
Alkaline Phosphatase 67 U/L (38-126) 10/31/23 03:54
Most recent labs reviewed.
Micro Results:
11/01/23 19:05 Wound Culture - Pending
Abdomen Gram Stain - Preliminary
11/01/23 19:05 Anaerobic Culture - Pending
Abdomen
10/19/23 13:41 Respiratory Culture - Final
Endotracheal Yeast
Gram Stain - Final
10/15/23 05:43 Blood Culture - Final
Blood/Venous No Growth - Final Report
10/15/23 09:57 Urine Culture - Final
Urine NO GROWTH
--- NOTE | 2023-11-03 09:39 | W.PN.GS2 ---
Addendum entered and electronically signed by Edinson Torres MD 11/03/23 10:58:
Patient seen and examined. Agree with assessment plan as documented below.
No major complaints. Denies worsening abdominal pain. Denies any nausea or vomiting.
Gen: NAD
Abd: soft, mild tenderness, mild distension, non-peritoneal, midline incision with mild bloody drainage, jabari in place, dry dressing with ABDs replaced, ostomy viable, mucosa pink - stool and flatus in appliance
73 yo male with h/o of AFIB on Eliquis presenting with abdominal pain with fecal impaction on initial CT, disimpacted in ED but without relief in pain. Taken to the OR emergently on 10/15 as he clinically deteriorated with increasing abdominal pain
with ischemic colon noted.
POD #19 s/p ex lap with subtotal colectomy in a damage control operation, abdomen left open with AbdThera vac
POD #16 s/p segmental sigmoid resection, end ileostomy and abd wound closure
POD#9 s/p ex lap, washout hematoma; revision of end ileostomy for ischemia
POD#2 s/p ex lap, exploratory laparotomy, revision end ileostomy for ischemia
Intermittent tachycardia, AFVSS
Stoma functioning with pink mucosa
Leukocytosis present post surgery and trending up, will continue to monitor
Anemia present but stable
Plan:
--Continue TPN, renewed
--Trial of clears
--Continue PPI BID
--Continue Zosyn- follow ID recommendations, input appreciated
--Diabetes PHOTOGRAPHER MODEL to continue managing diabetes, input appreciated
--Analgesics/antiemetics as needed
--Continuing Celaya catheter for now until he has recovered more from surgery
--OK to resume IV heparin with no bolus for AC
--OOB/ambulate as tolerated, PT/OT following
--SCD's while in bed
Original Note:
Today's Communication / Plan
-
Renew TPN
Trial of clears
OK to resume heparin gtt
Assessment / Plan
-
73 yo male with h/o of AFIB on Eliquis presenting with abdominal pain with fecal impaction on initial CT, disimpacted in ED but without relief in pain. Taken to the OR emergently on 10/15 as he clinically deteriorated with increasing abdominal pain
with ischemic colon noted.
POD #19 s/p ex lap with subtotal colectomy in a damage control operation, abdomen left open with AbdThera vac
POD #16 s/p segmental sigmoid resection, end ileostomy and abd wound closure
POD#9 s/p ex lap, washout hematoma; revision of end ileostomy for ischemia
POD#2 s/p ex lap, exploratory laparotomy, revision end ileostomy for ischemia
Tachycardic overnight, now resolved. AFVSS
Stoma functioning with pink mucosa
Leukocytosis present post surgery and trending up, will continue to monitor
Anemia present but stable
Plan:
--Continue TPN, renewed
--Trial of clears
--Continue PPI BID
--Continue Zosyn- follow ID recommendations, input appreciated
--Diabetes PHOTOGRAPHER MODEL to continue managing diabetes, input appreciated
--Analgesics/antiemetics as needed
--Continuing Celaya catheter for now until he has recovered more from surgery
--Ok to resume IV heparin with no bolus for AC
--OOB/ambulate as tolerated, PT/OT following
--SCD's while in bed
Subjective Data
-
Date of Service: November 03, 2023
Patient seen and examined at bedside with Dr. Torres. Notes he is very tired. Denies abdominal pain. Denies n/v.
Objective Data
-
Intake and Output
11/02/23 11/03/23 11/04/23
06:59 06:59 06:59
Intake Total 885 / 885 1144 / 1144
Output Total 830 / 830 1450 / 1450
Balance 55 / 55 -306 / -306
Intake:
IV fluids (Total) 96 / 96
Norm 50 / 50
Tpn 46 / 46
IV piggybacks 200 / 200 400 / 400
TPN/PPN 589 / 589 744 / 744
Output:
Liquid stool amount 50 / 50
Ileostomy 50 / 50
Urine, Celaya 830 / 830 1400 / 1400
Vital Signs
Temp Pulse Resp BP Pulse Ox
98.3 F 83 19 112/72 97
11/03/23 07:10 11/03/23 08:11 11/03/23 08:00 11/03/23 08:11 11/03/23 08:00
Lab Results
11/03/23 03:07
11/03/23 03:07
Calcium 8.3 mg/dl (8.4-10.2) L 11/03/23 03:07
Phosphorus 3.1 mg/dl (2.5-4.5) 10/31/23 03:54
Magnesium 1.9 mg/dl (1.6-2.3) 10/31/23 03:54
Total Bilirubin 0.7 mg/dl (0.2-1.3) 10/31/23 03:54
Direct Bilirubin 0.2 mg/dl (0.0-0.4) 10/26/23 06:11
AST 36 U/L (17-59) 10/31/23 03:54
ALT 23 U/L (0-50) 10/31/23 03:54
Alkaline Phosphatase 67 U/L (38-126) 10/31/23 03:54
Total Protein 5.1 g/dl (6.3-8.2) L 10/31/23 03:54
Albumin 2.5 g/dl (3.5-5.0) L 10/31/23 03:54
Physical Exam
-
Gen: NAD
Abd: soft, non tender, mildly distended, stoma with pink mucosa, bilious fluid and gas in the bag
Incision with intact staple line, no erythema
--- NOTE | 2023-11-03 09:59 | PTCARENOTE ---
with the help of PT and OT, Pt now sitting in solarium. on monitor TPN running as ordered .
[2023-11-03] MEDS: LANTUS 0.2 UNITS SC (10:08)
--- NOTE | 2023-11-03 10:43 | W.PN.CARDCBS ---
Today's Communication / Plan
-
Restart IV heparin today. Hemoglobin at 8.8. Continue to follow.
Continue Toprol. Ventricular rates are adequate in A-fib. Blood pressure stable
Impression / Plan
-
PCP: Dr. Herrera
Cardiology: Dr. Simms, last seen 06/29/22
Impression:
Admitted with stercoral colitis and sepsis 10/15/23
s/p s/p ex lap with subtotal colectomy in a damage control operation 10/15/23
s/p segmental sigmoid resection, end ileostomy and abd wound closure 10/18/23
s/p exploratory lap, small bowel resection, creation end ileostomy, secondary to stoma with necrotic mucosa 10/25/2023
s/p exploratory lap and revision of end ileostomy 11/01/23
Permanent Afib with RVR
Acute HFpEF
LLL PNA
Leukocytosis
post op anemia
JOSE
Hypernatremia
Hypokalemia
Elevated LFTs
DM 2
COPD
Echo 10/25/23: EF 60-65%, trace MR, aortic sclerosis without stenosis
Plan:
-Patient had revision of the end of his ileostomy 11/01/23. HD stable on 11/02/23.
-Recorded bed scale weight is stable. Cont Lasix 40 mg PO daily.
-Patient was taking HCTZ 25 mg daily as part of lisinopril/HCTZ combo pill prior to admission, but HCTZ now stopped. JORY has not been restarted. Blood pressure currently stable on Toprol.
-EF preserved on echo.
-New to Toprol XL 25 mg PO daily on 10/31/23. Lopressor 2.5 mg IV PRN also ordered.
-Afib is permanent and previously rate controlled without meds prior to admission
-Eliquis has been on hold since admission. Okay to restart heparin today. Follow hemoglobin
HPI: Patient came to [facility] 10/15/23 with abdominal pain and constipation and was admitted with sepsis and stercoral colitis, cardiology is now consulted for acute HF. Patient came to ER with abdominal pain and constipation and appeared to be septic.
He was started on pressors and later taken to the OR same day for a damage control operation with subtotal colectomy. He returned to the OR 10/18/23 for wound closure and end ileostomy. Patient has received 17.25 liters of IVFs since admission. He is
now allowed sips of water and is receiving TPN. Cardiology is asked to see patient for possible acute HF. His weight is overall up 10 lbs from admission despite NPO and bowel surgery. He denies edema, bloating or SOB. His pro-BNP was 3680 yesterday
and he was started on Lasix 40 mg IV daily. Patient denies chest pain. He has permanent Afib and HRs are rapid, but he denies palpitations. He was not taking a rate controlling med prior to admission, but was started on Toprol XL 50 mg BID
yesterday.
Progress Note - [employer]
Subjective
Date of Service: November 03, 2023
Sitting in chair and feeling well. Remains in A-fib with adequate ventricular rates.
Objective
Labs:
11/03/23 03:07
11/03/23 03:07
Labs
Hgb 8.8 g/dL (13.0-18.0) L 11/03/23 03:07
Hct 27.2 % (39.0-52.0) L 11/03/23 03:07
Plt Count 386 10^3/uL (130-400) 11/03/23 03:07
PT 15.3 Sec (11.4-14.6) H 10/26/23 06:11
INR 1.20 10/26/23 06:11
APTT Cancelled 11/01/23 13:15
Sodium 135 mmol/L (135-145) 11/03/23 03:07
Potassium 4.4 mmol/L (3.5-5.1) 11/03/23 03:07
BUN 26 mg/dl (9-20) H 11/03/23 03:07
Creatinine 0.6 mg/dL (0.7-1.3) L 11/03/23 03:07
Glucose 163 mg/dl (70-99) H 11/03/23 03:07
Vital Signs and I&O:
Vital Signs
Temp Pulse Resp BP Pulse Ox
98.3 F 90 23 101/78 96
11/03/23 07:10 11/03/23 10:00 11/03/23 10:00 11/03/23 09:18 11/03/23 10:06
Vital Signs
Temp Pulse Resp BP Pulse Ox
98.3 F 90 23 101/78 96
11/03/23 07:10 11/03/23 10:00 11/03/23 10:00 11/03/23 09:18 11/03/23 10:06
Intake & Output
11/01/23 11/02/23 11/03/23 11/04/23
06:59 06:59 06:59 06:59
Intake Total 410 / 410 885 / 885 1144 / 1144
Output Total 4150 / 4150 830 / 830 1450 / 1450 250 / 250
Balance -3740 / -3740 55 / 55 -306 / -306 -250 / -250
Physical Exam
Physical Exam
GEN: No distress, awake, Ox3
HEENT: supple, anicteric, mmm
LUNGS: CTA, no wheezes/rales
CV: Reg, S1/S2, 1/6 syst LSB, no gallop
ABD: soft, BS+, mild incis tend
EXT: No edema
NEURO: Gross non-focal
SKIN: No rash
--- NOTE | 2023-11-03 11:27 | PTCARENOTE ---
Pt sat out in chair in [facility] for about 1 hr now back in bed. visited for a short period
[2023-11-03] MEDS: NOVOLOG FLEXPEN-HIGH RESISTANCE 4 UNITS SC (12:05)
[2023-11-03] MEDS: NOVOLOG FLEXPEN 10 UNITS SC (12:05)
[2023-11-03 12:19] LABS: Glucose - Point of Care 206 mg/dl (70-99)
[2023-11-03] MEDS: HEPARIN 25000 UNITS/250 ML IV (12:50)
--- NOTE | 2023-11-03 13:00 | PTCARENOTE ---
Pt drank some beef broth and some ice tea . Pt encouraged to drink some broth
--- NOTE | 2023-11-03 13:00 | PTCARENOTE ---
after consulting with pharmacy Heparin gtt started at 1000 units /hr as stated in order
--- NOTE | 2023-11-03 14:54 | W.PN.HOSP.TC ---
Today's Communication/Plan
-
continue IV heparin
continue IV abx
continue TPN
Assessment / Plan
Assessment / Plan
Assessment:
Acute surgical abdomen with stercoral colitis with severe ischemic bowel
Septic shock POA resolved; off pressors, s/p stress dose steroids
- s/p disimpaction in ER
- clinically unstable emergent OR 10/14: ex lap, subtotal colectomy for mesenteric ischemia, ischemic colon
- s/p OR 10/17: exploratory laparotomy, partial colectomy (sigmoid), creation end ileostomy
- s/p OR 10/24: Exploratory laparotomy, small bowel resection, creation end ileostomy (due to necrosis at prior ostomy site)
- s/p OR 10/31: Exploratory laparotomy, revision end ileostomy
- continue Zosyn per ID. day 10; tentatively through 11/05
- TPN per GS. Diet per GS
- continue PPI BID
Persistent Elevating Leukocytosis despite extended course IV abx as above
- Repeat CT abd/pelvis noted ascites possible cirrhosis moderate to severe subcutaneous edema.
- IR eval requested for diagnostic/therapeutic paracentesis however noted ascites too small as per IR review of imaging
- Ascites was noted to be old blood as seen during above repeat surgical exploration, hematoma washout performed
- ID eval appreciated
- BNP elevated, ECHO noted preserved EF 60-65% no significant change from prior ECHO 2020
- continue Lasix 40mg daily
- cardio eval appreciated
- post-op ileus nausea hiccups, patient briefly strict NPO post procedure, symptoms subsequently improved, gradually advanced to LRD as per surgery
Acute Blood Loss Anemia following repeat procedure as above
Iron Deficiency
Anemia of Chronic disease
- total 2 PRBC transfusions with Lasix since above procedure 10/24
- IV Iron supplementation completed, eventual transition to PO when able
Community acquired PNA, LLL
Vent dependent respiratory failure
- extubated 10/18
- wean O2 as tolerated
- continue Zosyn per ID
JOSE from septic shock resolved
Acute metabolic acidosis
- monitor renal function
- monitor labs while on TPN
A. Fib with RVR
- likely driven by septic shock
- monitor rates; continue Toprol XL
- continue IV Heparin drip - requires intensive monitoring of PTTs
- cardio eval appreciated
Lyme arthritis
- completed 4 week Doxycycline course
Hypernatremia resolved
Mild transaminitis
- resolved
Hx of Essential HTN
- holding JORY/HCTZ
- started on Lasix as above
Type 2 DM
- holding Metformin
- completed critical care insulin protocol
- continue SSI
- Diabetes PRODUCTION SUPPORT MANAGER following
Hx of COPD
Former tobacco use disorder with [id number] history, quit about 15 years ago
Hypokalemia
Hypophosphatemia
- monitor and replete as necessary
Urinary retention
- continue Flomax
- Celaya catheter, eventual trial of void
10/25 mild Testicular Ecchymosis Painless, likely superficial bruising healing
- scrotal US appreciated no acute abn's
PT/OT appreciated Acute Rehab
DVT ppx: SCDs + IV Heparin
Code: DNR
Anticipated Discharge: > 48 hours
Subjective/Interval History
-
Date of Service: November 03, 2023
resting comfortably, tolerating clears. no pain
Objective Data
-
Labs:
Laboratory Results
11/03/23 11/03/23
03:07 19:00
WBC 19.0 H
Hgb 8.8 L
Hct 27.2 L
Plt Count 386
APTT Pending
Sodium 135
Potassium 4.4
Chloride 98
Carbon Dioxide 29
BUN 26 H
Creatinine 0.6 L
Glucose 163 H
Calcium 8.3 L
Vital Signs:
Vital Signs
Temp Pulse Resp BP Pulse Ox
98.4 F 90 23 101/78 96
11/03/23 10:50 11/03/23 10:00 11/03/23 10:00 11/03/23 09:18 11/03/23 10:06
I&O
11/02/23 11/03/23 11/04/23
06:59 06:59 06:59
Intake Total 885 / 885 1144 / 1144
Output Total 830 / 830 1450 / 1450 250 / 250
Balance 55 / 55 -306 / -306 -250 / -250
Physical Exam
-
General: No Apparent Distress
HEENT: Normocephalic and Atraumatic
Respiratory: Negative Wheezes
Cardiac: Regular Rhythm
GI: Soft and Ostomy
Musculoskeletal: No Edema
Neuro: AO x 3
Hematologic / Lymphatic: No Lymphadenopathy
Data Reviewed
-
Total Time Spent with Patient (in minutes): 51
Labs: Labs Reviewed by me
--- NOTE | 2023-11-03 15:45 | WOUNDNOTE ---
[facility] RN NOTE: Patient visited to follow up on ecchymotic areas on scrotum. The area appears stable from prior assessment. No open areas or blisters noted. Stoma pink with liquid stool. Midline incision intact. Will follow up with patient on 11/05 for
pouch change. Ostomy supplies in room. GERARDO Rosas given update.
--- NOTE | 2023-11-03 16:30 | CM ---
Patient who is s/p ex lap, subtotal colectomy 10/14, s/p ex lap, partial colectomy, creation end ileostomy 10/17, s/p ex lap, sm bowel resection, creation end ileostomy, s/p Ex lap, SBR, creation end ileostomy for ischemic stoma 10/24, Exploratory
laparotomy, revision end ileostomy 11/02. O2 4L. Clear liquids/TPN. Receiving Heparin gtt, IV Abx. PT & OT 11/02 recommend acute rehab. Seen by ostomy nurse.
Physiatry Consult 10/23- patient accepted by [facility] is following the patient and can accept when medically ready.
Will need insurance auth for AR.
Plan [facility] when medically ready.
--- NOTE | 2023-11-03 16:35 | CM ---
Patient who is s/p ex lap, subtotal colectomy 10/14, s/p ex lap, partial colectomy, creation end ileostomy 10/17, s/p ex lap, sm bowel resection, creation end ileostomy, s/p Ex lap, SBR, creation end ileostomy for ischemic stoma 10/24, Exploratory
laparotomy, revision end ileostomy 10/31. O2 4L. Clear liquids/TPN. Receiving Heparin gtt, IV Abx. PT & OT 11/02 recommend acute rehab. Seen by ostomy nurse.
Physiatry Consult 10/23- patient accepted by [facility].
[facility] is following the patient and can accept when medically ready.
Will need insurance auth for AR.
Plan [facility] when medically ready.
[2023-11-03] MEDS: FLOMAX 0.4 MG PO (18:07)
[2023-11-03] MEDS: NOVOLOG FLEXPEN 12 UNITS SC ×2 (18:08→23:57)
--- NOTE | 2023-11-03 18:18 | PTCARENOTE ---
Pt drank some broth and drinking ice tea
[2023-11-03 18:22] LABS: Glucose - Point of Care 195 mg/dl (70-99)
[2023-11-03 20:10] LABS: APTT 39.3 Sec (23.4-35.0)
[2023-11-03] MEDS: Parenteral Nutrition, Central 1480 IV (20:25)
[2023-11-03 21:46] LABS: Glucose - Point of Care 159 mg/dl (70-99)
[2023-11-03 23:49] LABS: Glucose - Point of Care 190 mg/dl (70-99)
[2023-11-04] VITALS (16 sets, daily range): BP systolic 100–130; BP diastolic 72–86; BMI 26.9
[2023-11-04 03:38] LABS: % Basophils 0.3 % (0-2); % Eosinophils 1.6 % (0-6); % Immature Granulocytes 1.3 % (0-0.5); % Lymphocytes 7.6 % (20.5-51.1); % Monocytes 9.6 % (1.7-9.3); % Neutrophils 79.6 % (42.2-75.2); Absolute Basophils 0.1 10^3/uL (0-0.2); Absolute Eosinophils 0.3 10^3/uL (0-0.7); Absolute Immature Granulocytes 0.2 10^3/uL (0-0.05); Absolute Lymphocytes 1.3 10^3/uL (1.2-3.4); Absolute Monocytes 1.6 10^3/uL (0.1-0.6); Hematocrit 26.6 % (39.0-52.0); Hemoglobin 8.6 g/dL (13.0-18.0); Mean Corp Hgb Conc. 32.3 g/dL (33.0-37.0); Mean Corpuscular Hgb 31.2 pg (27.0-31.0); Mean Corpuscular Volume 96.4 fL (80.0-94.0); Mean Platelet Volume 9.5 fL (7.4-10.4); Nucleated Red Blood Cells % 0 % (-); Platelet Count 350 10^3/uL (130-400); Red Blood Cell Count 2.76 10^6/uL (4.70-6.10); Red Cell Dist. Width 14.7 % (11.5-14.5); White Blood Cell Count 16.4 10^3/uL (4.8-10.8)
[2023-11-04 03:53] LABS: APTT 38.1 Sec (23.4-35.0)
[2023-11-04 04:01] LABS: Blood Urea Nitrogen 24 mg/dl (9-20); Calcium 8.4 mg/dl (8.4-10.2); Carbon Dioxide 32 mmol/L (22-30); Chloride 97 mmol/L (98-107); Estimated Creatinine Clearance > 125 ml/min; Glucose 166 mg/dl (70-99); Potassium 3.9 mmol/L (3.5-5.1); Sodium 135 mmol/L (135-145); eGFR > 60.00
[2023-11-04] MEDS: ZOSYN 100 IV ×4 (04:10→21:52)
--- NOTE | 2023-11-04 05:48 | PTCARENOTE ---
No acute events overnight. Stoma pink and budded + flatus, stool. No complaints of pain. placed on 2 liters NC while asleep. Midline incision clean dry and intact.
[2023-11-04] MEDS: NOVOLOG FLEXPEN 12 UNITS SC ×4 (05:59→23:39)
[2023-11-04] MEDS: NOVOLOG FLEXPEN-HIGH RESISTANCE 2 UNITS SC ×3 (06:00→17:40)
[2023-11-04 06:10] LABS: Glucose - Point of Care 197 mg/dl (70-99)
[2023-11-04] MEDS: SPIRIVA RESPIMAT 2.5 MCG 2 PUFF INH (07:51)
[2023-11-04] MEDS: TOPROL XL 25 MG PO (08:59)
[2023-11-04] MEDS: LASIX 40 MG PO (09:00)
[2023-11-04] MEDS: PROTONIX 40 MG PO ×2 (09:00→19:15)
[2023-11-04] MEDS: MUCINEX 1200 MG PO (09:00)
[2023-11-04] MEDS: DESENEX/MITRAZOL/ZEASORB 1 APPLIC TOPICAL ×2 (09:03→19:16)
[2023-11-04] MEDS: LANTUS 0.22 UNITS SC (10:02)
[2023-11-04] MEDS: HEPARIN 25000 UNITS/250 ML IV (10:18)
--- NOTE | 2023-11-04 10:34 | W.PN.ID1 ---
Date of Service
Date of Service: November 04, 2023
Today's Communication
add micafungin
continue
Assessment / Plan
S/p ex lap with subtotal colectomy for ischemic colitis - 10/15/23
S/p segmental sigmoid resection, end ileostomy and abd wound closure 10/18/23
S/p Exploratory laparotomy, small bowel resection, creation end ileostomy 10/25/23
S/p Ostomy revisions 10/31
reported penicillin allergy
Leukocytosis - persists today
- peritoneal aerobic and anaerobic cultures pending - yeast - lab will ID
- continue zosyn day 10; tentatively through 11/05; could switch to orals when taking pills
- add micafungin
- follow clinically
����������������������������������������������������������
Chief Complaint
-: Leukocytosis
Subjective / Review of Systems
afebrile
bp stable
no events overnight
Vital Signs / Physical Exam
Vital Signs
Vital Signs
Temp Pulse Resp BP Pulse Ox
98.2 F 84 21 115/72 97
11/04/23 07:02 11/04/23 08:00 11/04/23 08:00 11/04/23 08:00 11/04/23 08:00
Physical Exam
Constitutional: No Acute Distress
Cardiovascular: Regular Rate and S1/S2; Negative Murmur or Rub
Pulmonary: Clear and Symmetric; Negative Wheezes or Rales
Gastrointestinal: Soft, Non Tender, Non Distended and Normal Bowel Sounds
Skin: Warm and Dry; Negative Rash or Jaundice
Objective Data
Lab Data
Lab Results
11/04/23 03:13
11/04/23 03:13
PT 15.3 Sec (11.4-14.6) H 10/26/23 06:11
INR 1.20 10/26/23 06:11
APTT 38.1 Sec (23.4-35.0) H 11/04/23 03:13
Estimated Creat Clear > 125 ml/min 11/04/23 03:13
Lactic Acid 1.3 mmol/L (0.7-2.0) 10/25/23 05:27
Total Bilirubin 0.7 mg/dl (0.2-1.3) 10/31/23 03:54
AST 36 U/L (17-59) 10/31/23 03:54
ALT 23 U/L (0-50) 10/31/23 03:54
Alkaline Phosphatase 67 U/L (38-126) 10/31/23 03:54
Most recent labs reviewed as above, leukocytosis now declining, L shift now 97.6 from 82.5 nearly resolved
Micro Results:
11/01/23 19:05 Anaerobic Culture - Preliminary
Abdomen Culture pending. Anaerobic cultures are examined after 3
days incubation. Additional information to follow.
11/01/23 19:05 Wound Culture - Preliminary
Abdomen Yeast
Gram Stain - Preliminary
10/19/23 13:41 Respiratory Culture - Final
Endotracheal Yeast
Gram Stain - Final
10/15/23 05:43 Blood Culture - Final
Blood/Venous No Growth - Final Report
10/15/23 09:57 Urine Culture - Final
Urine NO GROWTH
[2023-11-04 10:44] LABS: APTT 45.3 Sec (23.4-35.0)
--- NOTE | 2023-11-04 11:21 | W.PN.GS2 ---
Addendum entered and electronically signed by Edinson Torres MD 11/04/23 16:20:
Patient seen and examined. Agree with assessment plan as documented below.
No complaints. Denies worsening abdominal pain. No nausea or vomiting. No fevers. Reports flatus, and liquid output from ostomy.
Gen: NAD
Abd: soft, minimal tenderness, ND, non-peritoneal, midline dressing c/d/i, ostomy PPV - flatus and dark liquid output
Patient is a 73 yo M with h/o of AFIB on Eliquis presenting with abdominal pain with fecal impaction on initial CT, disimpacted in ED but without relief in pain. Taken to the OR emergently on 10/15 as he clinically deteriorated with increasing
abdominal pain with ischemic colon noted.
POD #20 s/p ex lap with subtotal colectomy in a damage control operation, abdomen left open with AbdThera vac
POD #17 s/p segmental sigmoid resection, end ileostomy and abd wound closure
POD#10 s/p ex lap, washout hematoma; revision of end ileostomy for ischemia
POD#3 s/p ex lap, exploratory laparotomy, revision end ileostomy for ischemia
AFVSS
Stoma functioning with pink mucosa
Leukocytosis now trending back down
Anemia present but stable
Plan:
--Continue TPN, renewed.
--Full liquids as tolerated, still with minimal PO intake
--Continue Zosyn - follow ID recommendations, input appreciated
--Diabetes AUTOMOTIVE PARTS SALESPERSON to continue managing diabetes, input appreciated
--Analgesics/antiemetics as needed
--Consider Celaya removed tomorrow
--Continue IV heparin with no bolus for AC, hold off on PO AC for now
--Continue PPI BID
--OOB/ambulate as tolerated, PT/OT following
--SCD's while in bed
Original Note:
Today's Communication / Plan
-
Full liquids/TPN
Assessment / Plan
-
73 yo male with h/o of AFIB on Eliquis presenting with abdominal pain with fecal impaction on initial CT, disimpacted in ED but without relief in pain. Taken to the OR emergently on 10/15 as he clinically deteriorated with increasing abdominal pain
with ischemic colon noted.
POD #20 s/p ex lap with subtotal colectomy in a damage control operation, abdomen left open with AbdThera vac
POD #17 s/p segmental sigmoid resection, end ileostomy and abd wound closure
POD#10 s/p ex lap, washout hematoma; revision of end ileostomy for ischemia
POD#3 s/p ex lap, exploratory laparotomy, revision end ileostomy for ischemia
AFVSS
Stoma functioning with pink mucosa
Leukocytosis now trending back down
Anemia present but stable
Plan:
--Continue TPN, renewed.
--Full liquids as tolerated, still with minimal PO intake
--Continue PPI BID
--Continue Zosyn- follow ID recommendations, input appreciated
--Diabetes AUTOMOTIVE PARTS SALESPERSON to continue managing diabetes, input appreciated
--Analgesics/antiemetics as needed
--Continuing Celaya catheter for now until he has recovered more from surgery
--Continue IV heparin with no bolus for AC, hold off on PO AC for now
--OOB/ambulate as tolerated, PT/OT following
--SCD's while in bed
Subjective Data
-
Date of Service: November 04, 2023
Patient seen and examined at bedside. Denies n/v. Had some water ice yesterday and coffee this am without n/v. No appetite as of yet. Denies pain.
Objective Data
-
Intake and Output
11/03/23 11/04/23 11/05/23
06:59 06:59 06:59
Intake Total 1144 / 1144 944 / 944
Output Total 1450 / 1450 2200 / 2200 600 / 600
Balance -306 / -306 -1256 / -1256 -600 / -600
Intake:
IV piggybacks 400 / 400 200 / 200
TPN/PPN 744 / 744 744 / 744
Output:
Liquid stool amount 50 / 50 150 / 150 150 / 150
Ileostomy 50 / 50 150 / 150 150 / 150
Urine, Celaya 1400 / 1400 2049 / 2049 450 / 450
Vital Signs
Temp Pulse Resp BP Pulse Ox
98.2 F 84 21 115/72 97
11/04/23 07:02 11/04/23 08:00 11/04/23 08:00 11/04/23 08:00 11/04/23 08:00
Lab Results
11/04/23 03:13
11/04/23 03:13
Calcium 8.4 mg/dl (8.4-10.2) 11/04/23 03:13
Phosphorus 3.1 mg/dl (2.5-4.5) 10/31/23 03:54
Magnesium 1.9 mg/dl (1.6-2.3) 10/31/23 03:54
Total Bilirubin 0.7 mg/dl (0.2-1.3) 10/31/23 03:54
Direct Bilirubin 0.2 mg/dl (0.0-0.4) 10/26/23 06:11
AST 36 U/L (17-59) 10/31/23 03:54
ALT 23 U/L (0-50) 10/31/23 03:54
Alkaline Phosphatase 67 U/L (38-126) 10/31/23 03:54
Total Protein 5.1 g/dl (6.3-8.2) L 10/31/23 03:54
Albumin 2.5 g/dl (3.5-5.0) L 10/31/23 03:54
Physical Exam
-
Gen: NAD
Abd: soft, non tender, mildly distended, stoma viable and functioning with pink mucosa, bilious fluid and gas in the bag
Incision with intact staple line, no erythema
--- NOTE | 2023-11-04 12:04 | W.PN.HOSP.TC ---
Today's Communication/Plan
-
continue IV heparin
continue IV abx (Micafungin added today)
continue TPN (Full liquids started today)
Assessment / Plan
Assessment / Plan
Assessment:
Acute surgical abdomen with stercoral colitis with severe ischemic bowel
Septic shock POA resolved; off pressors, s/p stress dose steroids
- s/p disimpaction in ER
- clinically unstable emergent OR 10/14: ex lap, subtotal colectomy for mesenteric ischemia, ischemic colon
- s/p OR 10/17: exploratory laparotomy, partial colectomy (sigmoid), creation end ileostomy
- s/p OR 10/24: Exploratory laparotomy, small bowel resection, creation end ileostomy (due to necrosis at prior ostomy site)
- s/p OR 10/31: Exploratory laparotomy, revision end ileostomy
- continue Zosyn per ID. day 10; tentatively through 11/05. Micafungin added back 11/03 by ID
- TPN per GS. Diet per GS
- continue PPI BID
Persistent Elevating Leukocytosis despite extended course IV abx as above
- Repeat CT abd/pelvis noted ascites possible cirrhosis moderate to severe subcutaneous edema.
- IR eval requested for diagnostic/therapeutic paracentesis however noted ascites too small as per IR review of imaging
- Ascites was noted to be old blood as seen during above repeat surgical exploration, hematoma washout performed
- ID eval appreciated
- BNP elevated, ECHO noted preserved EF 60-65% no significant change from prior ECHO 2020
- continue Lasix 40mg daily
- cardio eval appreciated
- post-op ileus nausea hiccups, patient briefly strict NPO post procedure, symptoms subsequently improved, gradually advanced to LRD as per surgery
Acute Blood Loss Anemia following repeat procedure as above
Iron Deficiency
Anemia of Chronic disease
- total 2 PRBC transfusions with Lasix since above procedure 10/24
- IV Iron supplementation completed, eventual transition to PO when able
Community acquired PNA, LLL
Vent dependent respiratory failure
- extubated 10/18
- wean O2 as tolerated
- continue Zosyn per ID
JOSE from septic shock resolved
Acute metabolic acidosis
- monitor renal function
- monitor labs while on TPN
A. Fib with RVR
- likely driven by septic shock
- monitor rates; continue Toprol XL
- continue IV Heparin drip - requires intensive monitoring of PTTs
- cardio eval appreciated
Lyme arthritis
- completed 4 week Doxycycline course
Hypernatremia resolved
Mild transaminitis
- resolved
Hx of Essential HTN
- holding JORY/HCTZ
- started on Lasix as above
Type 2 DM
- holding Metformin
- completed critical care insulin protocol
- continue SSI
- Diabetes CANTEEN OPERATOR following
Hx of COPD
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
Hypokalemia
Hypophosphatemia
- monitor and replete as necessary
Urinary retention
- continue Flomax
- Celaya catheter, eventual trial of void
10/25 mild Testicular Ecchymosis Painless, likely superficial bruising healing
- scrotal US appreciated no acute abn's
PT/OT appreciated Acute Rehab
DVT ppx: SCDs + IV Heparin
Code: DNR
Anticipated Discharge: > 48 hours
Subjective/Interval History
-
Date of Service: November 04, 2023
denies any new complaints at present
now on full liquids
Objective Data
-
Labs:
Laboratory Results
11/04/23 11/04/23 11/04/23
03:13 10:11 17:30
WBC 16.4 H
Hgb 8.6 L
Hct 26.6 L
Plt Count 350
APTT 38.1 H 45.3 H Pending
Sodium 135
Potassium 3.9
Chloride 97 L
Carbon Dioxide 32 H
BUN 24 H
Creatinine 0.6 L
Glucose 166 H
Calcium 8.4
Vital Signs:
Vital Signs
Temp Pulse Resp BP Pulse Ox
98.2 F 85 24 113/82 95
11/04/23 07:02 11/04/23 10:00 11/04/23 10:00 11/04/23 10:00 11/04/23 09:00
I&O
11/03/23 11/04/23 11/05/23
06:59 06:59 06:59
Intake Total 1144 / 1144 944 / 944
Output Total 1450 / 1450 2200 / 2200 600 / 600
Balance -306 / -306 -1256 / -1256 -600 / -600
Physical Exam
-
General: No Apparent Distress
HEENT: Normocephalic
Respiratory: Negative Wheezes
Cardiac: Regular Rhythm and S1/S2
GI: Soft
Genito-urinary: No Costovertebral Tender
Neuro: AO x 3
Psych: Calm
Data Reviewed
-
Total Time Spent with Patient (in minutes): 51
Labs: Labs Reviewed by me
[2023-11-04 12:48] LABS: Glucose - Point of Care 177 mg/dl (70-99)
[2023-11-04] MEDS: MYCAMINE 105 MG IV (13:17)
--- NOTE | 2023-11-04 13:45 | W.PN.CARDCBS ---
Today's Communication / Plan
-
Weight remains stable. Cont oral lasix.
He had been taking HCTZ with ACEI but HCTZ has been stopped. ACEI held. Bp stable on Toprol.
IV Heparin has been restarted. Eventual transition to Eliquis once no further procedures/interventions are planned and stable from surgical standpoint.
Continue to monitor H/H. Hemoglobin slightly reduced at 8.6 on November 04, 2023.
Atrial fibrillation is permanent and was previously rate controlled without AV aileen blocking agents prior to admission. Patient is new to [facility].
EF is preserved on last echo.
Impression / Plan
-
.
PCP: Dr. Herrera
Cardiology: Dr. Simms, last seen 06/29/22
Impression:
Admitted with stercoral colitis and sepsis 10/15/23
s/p s/p ex lap with subtotal colectomy in a damage control operation 10/15/23
s/p segmental sigmoid resection, end ileostomy and abd wound closure 10/18/23
s/p exploratory lap, small bowel resection, creation end ileostomy, secondary to stoma with necrotic mucosa 10/25/2023
s/p exploratory lap and revision of end ileostomy 11/01/23
Permanent Afib with RVR
Acute HFpEF
LLL PNA
Leukocytosis
post op anemia
JOSE
Hypernatremia
Hypokalemia
Elevated LFTs
DM 2
COPD
Echo 10/25/23: EF 60-65%, trace MR, aortic sclerosis without stenosis
Plan:
-Patient had revision of the end of his ileostomy 11/01/23.
Weight remains stable. Cont oral lasix.
He had been taking HCTZ with ACEI but HCTZ has been stopped. ACEI held. Bp stable on Toprol.
IV Heparin has been restarted. Eventual transition to Eliquis once no further procedures/interventions are planned and stable from surgical standpoint.
Continue to monitor H/H. Hemoglobin slightly reduced at 8.6 on November 04, 2023.
Atrial fibrillation is permanent and was previously rate controlled without AV aileen blocking agents prior to admission. Patient is new to Toprol.
EF is preserved on last echo.
Continue supportive care/nutrition
Discussed with family at bedside.
Discussed with nursing.
HPI: Patient came to [facility] 10/15/23 with abdominal pain and constipation and was admitted with sepsis and stercoral colitis, cardiology is now consulted for acute HF. Patient came to ER with abdominal pain and constipation and appeared to be septic.
He was started on pressors and later taken to the OR same day for a damage control operation with subtotal colectomy. He returned to the OR 10/18/23 for wound closure and end ileostomy. Patient has received 17.25 liters of IVFs since admission. He is
now allowed sips of water and is receiving TPN. Cardiology is asked to see patient for possible acute HF. His weight is overall up 10 lbs from admission despite NPO and bowel surgery. He denies edema, bloating or SOB. His pro-BNP was 3680 yesterday
and he was started on Lasix 40 mg IV daily. Patient denies chest pain. He has permanent Afib and HRs are rapid, but he denies palpitations. He was not taking a rate controlling med prior to admission, but was started on Toprol XL 50 mg BID
yesterday.
Progress Note - Transit Mix Operator
Subjective
Date of Service: November 04, 2023
Pt seen and examined. No complaints. No chest pain or shortness of breath.
Objective
Labs:
11/04/23 03:13
11/04/23 03:13
Labs
Hgb 8.6 g/dL (13.0-18.0) L 11/04/23 03:13
Hct 26.6 % (39.0-52.0) L 11/04/23 03:13
Plt Count 350 10^3/uL (130-400) 11/04/23 03:13
PT 15.3 Sec (11.4-14.6) H 10/26/23 06:11
INR 1.20 10/26/23 06:11
APTT 45.3 Sec (23.4-35.0) H 11/04/23 10:11
Sodium 135 mmol/L (135-145) 11/04/23 03:13
Potassium 3.9 mmol/L (3.5-5.1) 11/04/23 03:13
BUN 24 mg/dl (9-20) H 11/04/23 03:13
Creatinine 0.6 mg/dL (0.7-1.3) L 11/04/23 03:13
Glucose 166 mg/dl (70-99) H 11/04/23 03:13
Vital Signs and I&O:
Vital Signs
Temp Pulse Resp BP Pulse Ox
98.2 F 85 24 113/82 95
11/04/23 07:02 11/04/23 10:00 11/04/23 10:00 11/04/23 10:00 11/04/23 09:00
Vital Signs
Temp Pulse Resp BP Pulse Ox
98.2 F 85 24 113/82 95
11/04/23 07:02 11/04/23 10:00 11/04/23 10:00 11/04/23 10:00 11/04/23 09:00
Intake & Output
11/02/23 11/03/23 11/04/23 11/05/23
06:59 06:59 06:59 06:59
Intake Total 885 / 885 1144 / 1144 944 / 944
Output Total 830 / 830 1450 / 1450 2200 / 2200 600 / 600
Balance 55 / 55 -306 / -306 -1256 / -1256 -600 / -600
Physical Exam
Physical Exam
General: No acute distress, AAOX3
Neck: Negative JVD
Heart: Irregular irregular, Negative S3 positive S1/S2, Negative S4, No murmur
Lungs: CTA b/l, negative wheezes/rales/rhonchi
Abd: Positive BS, NT/ND, neg rebound/rigidity/guarding
Ext: Negative cyanosis/clubbing/edema
Neuro: nonfocal
--- NOTE | 2023-11-04 15:54 | CHAP ---
Shilo and his family were visiting in the waiting area. He was in good spirits, looking stronger than previously, and he asked for prayer. Emotional and spiritual support provided, with assurance that the shallot cleaner remains available.
[2023-11-04] MEDS: FLOMAX 0.4 MG PO (17:29)
[2023-11-04 17:50] LABS: Glucose - Point of Care 163 mg/dl (70-99)
[2023-11-04 18:02] LABS: APTT 51.6 Sec (23.4-35.0)
[2023-11-04 18:22] LABS: Glucose - Point of Care 171 mg/dl (70-99)
--- NOTE | 2023-11-04 18:32 | PTCARENOTE ---
OOB in recliner chair- sat in lounge for several hours today. Mood improved verbally by him. RAIR today 94%. AF on tele 80s - he did jump to 150s when getting back in bed but resolved on own at rest within 5 min. Denies pain. Abdominal
incision redressed - sm- mod drainage noted. Ileostomy producing dk brown liquid. Celaya in place per surgery note. SCDs intact. PICC line with IV Heparin, IV TPN and IV antibx as ordered. Emotional support provided. Lots of visitors/ support
today.
[2023-11-04] MEDS: Parenteral Nutrition, Central 1480 IV (20:21)
[2023-11-04] MEDS: NOVOLOG FLEXPEN-HIGH RESISTANCE 1 UNITS SC (23:39)
[2023-11-04 23:45] LABS: Glucose - Point of Care 120 mg/dl (70-99)
[2023-11-05] VITALS (14 sets, daily range): BP systolic 104–138; BP diastolic 73–93; PULSE 109; O2SAT 92; BMI 26.3
[2023-11-05 00:07] LABS: APTT 91.7 Sec (23.4-35.0)
[2023-11-05] MEDS: HEPARIN 25000 UNITS/250 ML IV ×2 (02:41→16:21)
--- NOTE | 2023-11-05 03:12 | PTCARENOTE ---
Patient with increased anxiety overnight. call center support consultant provider made aware and ordered 1x dose po ativan. Oxygen weaned down to 4 liters.
[2023-11-05] MEDS: ZOSYN 100 IV ×4 (04:11→21:33)
[2023-11-05 04:25] LABS: % Basophils 0.6 % (0-2); % Eosinophils 1.9 % (0-6); % Immature Granulocytes 1.2 % (0-0.5); % Lymphocytes 9.6 % (20.5-51.1); % Monocytes 9.7 % (1.7-9.3); Absolute Basophils 0.1 10^3/uL (0-0.2); Absolute Eosinophils 0.3 10^3/uL (0-0.7); Absolute Immature Granulocytes 0.2 10^3/uL (0-0.05); Absolute Lymphocytes 1.3 10^3/uL (1.2-3.4); Absolute Monocytes 1.3 10^3/uL (0.1-0.6); Absolute Neutrophils 10.1 10^3/uL (1.4-6.5); Hematocrit 25.7 % (39.0-52.0); Hemoglobin 8.3 g/dL (13.0-18.0); Mean Corp Hgb Conc. 32.3 g/dL (33.0-37.0); Mean Corpuscular Hgb 29.6 pg (27.0-31.0); Mean Corpuscular Volume 91.8 fL (80.0-94.0); Mean Platelet Volume 9.5 fL (7.4-10.4); Nucleated Red Blood Cells % 0.2 % (-); Platelet Count 346 10^3/uL (130-400); Red Cell Dist. Width 14.6 % (11.5-14.5); White Blood Cell Count 13.2 10^3/uL (4.8-10.8)
[2023-11-05 04:39] LABS: APTT 65.8 Sec (23.4-35.0)
--- NOTE | 2023-11-05 04:52 | PTCARENOTE ---
No acute events overnight. Required 2 liters NC while asleep. No complaints of pain, +stool,+flatus from ileostomy.
[2023-11-05 04:53] LABS: Blood Urea Nitrogen 23 mg/dl (9-20); Calcium 8.5 mg/dl (8.4-10.2); Carbon Dioxide 30 mmol/L (22-30); Chloride 97 mmol/L (98-107); Estimated Creatinine Clearance > 125 ml/min; Glucose 132 mg/dl (70-99); Potassium 4.1 mmol/L (3.5-5.1); Sodium 136 mmol/L (135-145); eGFR > 60.00
[2023-11-05] MEDS: NOVOLOG FLEXPEN-HIGH RESISTANCE 2 UNITS SC (05:58)
[2023-11-05] MEDS: NOVOLOG FLEXPEN 12 UNITS SC ×3 (05:58→17:35)
[2023-11-05 06:08] LABS: Glucose - Point of Care 191 mg/dl (70-99)
[2023-11-05] MEDS: SPIRIVA RESPIMAT 2.5 MCG 2 PUFF INH (07:56)
--- NOTE | 2023-11-05 08:46 | W.PN.CARDCBS ---
Today's Communication / Plan
-
Continue Toprol and rate control strategy for A-fib.
Hemoglobin drifting down at 8.3. Continue to follow.
Will continue IV heparin for now with eventual restarting Eliquis.
Blood pressure is stable on Toprol
Cont po Lasix
Impression / Plan
-
.
PCP: Dr. Herrera
Cardiology: Dr. Simms, last seen 06/29/22
Impression:
Admitted with stercoral colitis and sepsis 10/15/23
s/p s/p ex lap with subtotal colectomy in a damage control operation 10/15/23
s/p segmental sigmoid resection, end ileostomy and abd wound closure 10/18/23
s/p exploratory lap, small bowel resection, creation end ileostomy, secondary to stoma with necrotic mucosa 10/25/2023
s/p exploratory lap and revision of end ileostomy 11/01/23
Permanent Afib with RVR
Acute HFpEF
LLL PNA
Leukocytosis
post op anemia
JOSE
Hypernatremia
Hypokalemia
Elevated LFTs
DM 2
COPD
Echo 10/25/23: EF 60-65%, trace MR, aortic sclerosis without stenosis
Plan:
-Patient had revision of the end of his ileostomy 11/01/23.
Weight overall stable. Cont oral lasix.
He had been taking HCTZ with ACEI but HCTZ has been stopped. ACEI held. Bp stable on Toprol.
IV Heparin has been restarted. Eventual transition to Eliquis once no further procedures/interventions are planned and stable from surgical standpoint.
Continue to monitor H/H. Hemoglobin slightly trending down to 8.3. Cont to follow
Atrial fibrillation is permanent and was previously rate controlled without AV aileen blocking agents prior to admission. Patient is new to Toprol.
EF is preserved on last echo.
Continue supportive care/nutrition
HPI: Patient came to [facility] with abdominal pain and constipation and was admitted with sepsis and stercoral colitis, cardiology is now consulted for acute HF. Patient came to ER with abdominal pain and constipation and appeared to be septic.
He was started on pressors and later taken to the OR same day for a damage control operation with subtotal colectomy. He returned to the OR 10/18/23 for wound closure and end ileostomy. Patient has received 17.25 liters of IVFs since admission. He is
now allowed sips of water and is receiving TPN. Cardiology is asked to see patient for possible acute HF. His weight is overall up 10 lbs from admission despite NPO and bowel surgery. He denies edema, bloating or SOB. His pro-BNP was 3680 yesterday
and he was started on Lasix 40 mg IV daily. Patient denies chest pain. He has permanent Afib and HRs are rapid, but he denies palpitations. He was not taking a rate controlling med prior to admission, but was started on Toprol XL 50 mg BID
yesterday.
Progress Note - Behaviour Support Teacher
Subjective
Date of Service: November 05, 2023
Overall doing well. Now tolerating liquid diet
Objective
Labs:
11/05/23 04:14
11/05/23 04:14
Labs
Hgb 8.3 g/dL (13.0-18.0) L 11/05/23 04:14
Hct 25.7 % (39.0-52.0) L 11/05/23 04:14
Plt Count 346 10^3/uL (130-400) 11/05/23 04:14
PT 15.3 Sec (11.4-14.6) H 10/26/23 06:11
INR 1.20 10/26/23 06:11
APTT 65.8 Sec (23.4-35.0) H 11/05/23 04:14
Sodium 136 mmol/L (135-145) 11/05/23 04:14
Potassium 4.1 mmol/L (3.5-5.1) 11/05/23 04:14
BUN 23 mg/dl (9-20) H 11/05/23 04:14
Creatinine 0.6 mg/dL (0.7-1.3) L 11/05/23 04:14
Glucose 132 mg/dl (70-99) H 11/05/23 04:14
Vital Signs and I&O:
Vital Signs
Temp Pulse Resp BP Pulse Ox
98.7 F 98 24 136/92 97
11/05/23 07:31 11/05/23 07:58 11/05/23 07:58 11/05/23 06:01 11/05/23 07:58
Vital Signs
Temp Pulse Resp BP Pulse Ox
98.7 F 98 24 136/92 97
11/05/23 07:31 11/05/23 07:58 11/05/23 07:58 11/05/23 06:01 11/05/23 07:58
Intake & Output
11/03/23 11/04/23 11/05/23 11/06/23
06:59 06:59 06:59 06:59
Intake Total 1144 / 1144 944 / 944 2528 / 2528
Output Total 1450 / 1450 2200 / 2200 2175 / 2175
Balance -306 / -306 -1256 / -1256 353 / 353
Physical Exam
Physical Exam
GEN: No distress, awake, Ox3
HEENT: supple, anicteric, mmm
LUNGS: CTA, no wheezes/rales
CV: irreg, S1/S2, 1/6 syst LSB, no murmur
ABD: soft, BS+, ostomy
EXT: No edema
NEURO: Gross non-focal
SKIN: No rash
--- NOTE | 2023-11-05 08:53 | W.PN.ID1 ---
Date of Service
Date of Service: November 05, 2023
Today's Communication
continue zosyn/micafungin
await ID of the yeast
Assessment / Plan
S/p ex lap with subtotal colectomy for ischemic colitis - 10/15/23
S/p segmental sigmoid resection, end ileostomy and abd wound closure 10/18/23
S/p Exploratory laparotomy, small bowel resection, creation end ileostomy 10/25/23
S/p Ostomy revisions 10/31
reported penicillin allergy
Leukocytosis - persists today
- peritoneal aerobic and anaerobic cultures pending - yeast - lab will ID
- continue zosyn day 10; tentatively through 11/05; could switch to orals when taking pills
- add micafungin
- follow clinically
����������������������������������������������������������
Chief Complaint
-: Leukocytosis
Subjective / Review of Systems
afebrile
bp stable
no events overnight
Vital Signs / Physical Exam
Vital Signs
Vital Signs
Temp Pulse Resp BP Pulse Ox
98.7 F 98 24 136/92 97
11/05/23 07:31 11/05/23 07:58 11/05/23 07:58 11/05/23 06:01 11/05/23 07:58
Physical Exam
Constitutional: No Acute Distress
Cardiovascular: Regular Rate and S1/S2; Negative Murmur or Rub
Pulmonary: Clear and Symmetric; Negative Wheezes or Rales
Gastrointestinal: Soft, Non Tender, Non Distended, Normal Bowel Sounds and Other (stoma pink, mildly pale)
Skin: Warm and Dry; Negative Rash or Jaundice
Objective Data
Lab Data
Lab Results
11/05/23 04:14
11/05/23 04:14
PT 15.3 Sec (11.4-14.6) H 10/26/23 06:11
INR 1.20 10/26/23 06:11
APTT 65.8 Sec (23.4-35.0) H 11/05/23 04:14
Estimated Creat Clear > 125 ml/min 11/05/23 04:14
Lactic Acid 1.3 mmol/L (0.7-2.0) 10/25/23 05:27
Total Bilirubin 0.7 mg/dl (0.2-1.3) 10/31/23 03:54
AST 36 U/L (17-59) 10/31/23 03:54
ALT 23 U/L (0-50) 10/31/23 03:54
Alkaline Phosphatase 67 U/L (38-126) 10/31/23 03:54
Most recent labs reviewed.
Micro Results:
11/01/23 19:05 Wound Culture - Preliminary
Abdomen Yeast
Gram Stain - Preliminary
11/01/23 19:05 Anaerobic Culture - Preliminary
Abdomen Culture pending. Anaerobic cultures are examined after 3
days incubation. Additional information to follow.
10/19/23 13:41 Respiratory Culture - Final
Endotracheal Yeast
Gram Stain - Final
10/15/23 05:43 Blood Culture - Final
Blood/Venous No Growth - Final Report
10/15/23 09:57 Urine Culture - Final
Urine NO GROWTH
[2023-11-05] MEDS: TOPROL XL 25 MG PO (09:50)
[2023-11-05] MEDS: PROTONIX 40 MG PO ×2 (09:50→19:58)
[2023-11-05] MEDS: LANTUS 0.22 UNITS SC (09:50)
[2023-11-05] MEDS: LASIX 40 MG PO (09:51)
[2023-11-05] MEDS: DESENEX/MITRAZOL/ZEASORB 1 APPLIC TOPICAL ×2 (09:51→21:32)
--- NOTE | 2023-11-05 10:05 | W.PN.HOSP.TC ---
Today's Communication/Plan
-
continue IV heparin
continue IV abx + Micafungin, follow cultures
continue TPN + full liquids
PT/OT
Assessment / Plan
Assessment / Plan
Assessment:
Acute surgical abdomen with stercoral colitis with severe ischemic bowel
Septic shock POA resolved; off pressors, s/p stress dose steroids
- s/p disimpaction in ER
- clinically unstable emergent OR 10/14: ex lap, subtotal colectomy for mesenteric ischemia, ischemic colon
- s/p OR 10/17: exploratory laparotomy, partial colectomy (sigmoid), creation end ileostomy
- s/p OR 10/24: Exploratory laparotomy, small bowel resection, creation end ileostomy (due to necrosis at prior ostomy site)
- s/p OR 10/31: Exploratory laparotomy, revision end ileostomy
- continue Zosyn day 10; tentatively through 11/05 per ID. Micafungin added back 11/03 by ID
- TPN per GS. Diet per GS.
- continue PPI BID
Persistent Elevating Leukocytosis despite extended course IV abx as above
- Repeat CT abd/pelvis noted ascites possible cirrhosis moderate to severe subcutaneous edema.
- IR eval requested for diagnostic/therapeutic paracentesis however noted ascites too small as per IR review of imaging
- Ascites was noted to be old blood as seen during above repeat surgical exploration, hematoma washout performed
- ID eval appreciated
- BNP elevated, ECHO noted preserved EF 60-65% no significant change from prior ECHO 2020
- continue Lasix 40mg daily
- cardio eval appreciated
- post-op ileus nausea hiccups, patient briefly strict NPO post procedure, symptoms subsequently improved, gradually advanced to LRD as per surgery
Acute Blood Loss Anemia following repeat procedure as above
Iron Deficiency
Anemia of Chronic disease
- total 2 PRBC transfusions with Lasix since above procedure 10/24
- IV Iron supplementation completed, eventual transition to PO when able
Community acquired PNA, LLL
Vent dependent respiratory failure
- extubated 10/18
- wean O2 as tolerated
- continue Zosyn per ID
JOSE from septic shock resolved
Acute metabolic acidosis
- monitor renal function
- monitor labs while on TPN
A. Fib with RVR
- likely driven by septic shock
- monitor rates; continue Toprol XL
- continue IV Heparin drip - requires intensive monitoring of PTTs
- cardio eval appreciated
Lyme arthritis
- completed 4 week Doxycycline course
Hypernatremia resolved
Mild transaminitis
- resolved
Hx of Essential HTN
- holding JORY/HCTZ
- started on Lasix as above
Type 2 DM
- holding Metformin
- completed critical care insulin protocol
- continue SSI
- Diabetes ROD PILER following
Hx of COPD
Former tobacco use disorder with [id number] history, quit about 15 years ago
Hypokalemia
Hypophosphatemia
- monitor and replete as necessary
Urinary retention
- continue Flomax
- Celaya catheter, eventual trial of void
10/25 mild Testicular Ecchymosis Painless, likely superficial bruising healing
- scrotal US appreciated no acute abn's
PT/OT appreciated Acute Rehab
DVT ppx: SCDs + IV Heparin
Code: DNR
Anticipated Discharge: > 48 hours
Subjective/Interval History
-
Date of Service: November 05, 2023
sitting in the chair, feels well, denies any complaints
Objective Data
-
Labs:
Laboratory Results
11/04/23 11/05/23 11/05/23
23:49 04:14 11:00
WBC 13.2 H
Hgb 8.3 L
Hct 25.7 L
Plt Count 346
APTT 91.7 H 65.8 H Pending
Sodium 136
Potassium 4.1
Chloride 97 L
Carbon Dioxide 30
BUN 23 H
Creatinine 0.6 L
Glucose 132 H
Calcium 8.5
Vital Signs:
Vital Signs
Temp Pulse Resp BP Pulse Ox
98.7 F 98 24 136/92 97
11/05/23 07:31 11/05/23 09:50 11/05/23 07:58 11/05/23 06:01 11/05/23 07:58
I&O
11/04/23 11/05/23 11/06/23
06:59 06:59 06:59
Intake Total 944 / 944 2528 / 2528
Output Total 2200 / 2200 2175 / 2175
Balance -1256 / -1256 353 / 353
Physical Exam
-
General: No Apparent Distress
HEENT: Normocephalic and Atraumatic
Respiratory: Negative Wheezes
Cardiac: Regular Rhythm and S1/S2
GI: Soft
Genito-urinary: No Costovertebral Tender
Musculoskeletal: No Edema
Neuro: AO x 3
Hematologic / Lymphatic: No Lymphadenopathy
Psych: Calm
Data Reviewed
-
Total Time Spent with Patient (in minutes): 51
Labs: Labs Reviewed by me
--- NOTE | 2023-11-05 10:20 | W.PN.GS2 ---
Today's Communication / Plan
-
--LRD, supplement shakes
--DC TPN
--DC Celaya
--OK for PO therapeutic anticoagulation
--OOB/ambulate as tolerated, PT/OT following
Assessment / Plan
-
73 yo male with h/o of AFIB on Eliquis presenting with abdominal pain with fecal impaction on initial CT, disimpacted in ED but without relief in pain. Taken to the OR emergently on 10/15 as he clinically deteriorated with increasing abdominal pain
with ischemic colon noted.
POD #21 s/p ex lap with subtotal colectomy in a damage control operation, abdomen left open with AbdThera vac
POD #18 s/p segmental sigmoid resection, end ileostomy and abd wound closure
POD#11 s/p ex lap, washout hematoma; revision of end ileostomy for ischemia
POD#4 s/p ex lap, exploratory laparotomy, revision end ileostomy for ischemia
AFVSS
Stoma functioning with pink mucosa
Leukocytosis trending down
Anemia present but stable
Plan:
--LRD, supplement shakes
--DC TPN
--Continue PPI BID
--Continue Zosyn- follow ID recommendations, input appreciated
--Diabetes PAPER CONE MAKER to continue managing diabetes, input appreciated
--Analgesics/antiemetics as needed
--DC Celaya
--OK for PO therapeutic anticoagulation
--OOB/ambulate as tolerated, PT/OT following
--SCD's while in bed
Subjective Data
-
Date of Service: November 05, 2023
No complaints. Denies nausea or vomiting. Denies worsening abdominal pain. No fevers. Reports flatus and some mild stool in her ostomy. Minimal ambulation
Objective Data
-
Intake and Output
11/04/23 11/05/23 11/06/23
06:59 06:59 06:59
Intake Total 944 / 944 2528 / 2528
Output Total 2200 / 2200 2175 / 2175
Balance -1256 / -1256 353 / 353
Intake:
Oral fluids 340 / 340
IV piggybacks 200 / 200 700 / 700
TPN/PPN 744 / 744 1488 / 1488
Output:
Liquid stool amount 150 / 150 200 / 200
Ileostomy 150 / 150 200 / 200
Urine, Celaya 2050 / 2050 1325 / 1325
Urine, Voided 650 / 650
Vital Signs
Temp Pulse Resp BP Pulse Ox
98.7 F 98 24 136/92 97
11/05/23 07:31 11/05/23 09:50 11/05/23 07:58 11/05/23 06:01 11/05/23 07:58
Lab Results
11/05/23 04:14
11/05/23 04:14
Calcium 8.5 mg/dl (8.4-10.2) 11/05/23 04:14
Phosphorus 3.1 mg/dl (2.5-4.5) 10/31/23 03:54
Magnesium 1.9 mg/dl (1.6-2.3) 10/31/23 03:54
Total Bilirubin 0.7 mg/dl (0.2-1.3) 10/31/23 03:54
Direct Bilirubin 0.2 mg/dl (0.0-0.4) 10/26/23 06:11
AST 36 U/L (17-59) 10/31/23 03:54
ALT 23 U/L (0-50) 10/31/23 03:54
Alkaline Phosphatase 67 U/L (38-126) 10/31/23 03:54
Total Protein 5.1 g/dl (6.3-8.2) L 10/31/23 03:54
Albumin 2.5 g/dl (3.5-5.0) L 10/31/23 03:54
Physical Exam
-
Gen: NAD
Abd: soft, minimal tenderness, mild distension, non-peritoneal, dressings c/d/i, ostomy PPV - flatus and mild dark stool
[2023-11-05 11:08] LABS: APTT 73.8 Sec (23.4-35.0)
[2023-11-05 12:42] LABS: Glucose - Point of Care 230 mg/dl (70-99)
[2023-11-05] MEDS: MYCAMINE 105 MG IV (12:52)
[2023-11-05] MEDS: FEOSOL 325 MG PO (12:52)
[2023-11-05] MEDS: NOVOLOG FLEXPEN-HIGH RESISTANCE 4 UNITS SC (12:53)
[2023-11-05] MEDS: FLOMAX 0.4 MG PO (16:21)
[2023-11-05 17:05] LABS: APTT 77.3 Sec (23.4-35.0)
[2023-11-05] MEDS: NOVOLOG FLEXPEN-HIGH RESISTANCE 1 UNITS SC (17:33)
[2023-11-05 17:39] LABS: Glucose - Point of Care 149 mg/dl (70-99)
--- NOTE | 2023-11-05 18:31 | PTCARENOTE ---
OOB today in lounge for 3-4 hours- worked with PT/OT as well. Good spirits, thankful for care. LC/ 94% on RAIR. AF on tele controlled rates. IV Heparin gtt now therapeutic x2- next PTT [place]. TPN infusing- last bag. IV antibx intermittent.
Midline incision dressings changed out- mod serosang drainage mid and distal end. Kali all intact. Ileostomy with brown liquid. Silva removed - placed #30 CC will need size down next one. Voided 150ml since silva removed. DIet increased and
not taking much in - had 1/2 peanut jelly sandwich this afternoon. Emotional support provided.
[2023-11-05 23:35] LABS: Glucose - Point of Care 81 mg/dl (70-99)
[2023-11-06] VITALS (14 sets, daily range): BP systolic 114–158; BP diastolic 82–101; PULSE 94–157; O2SAT 98; BMI 26.2
[2023-11-06] MEDS: NOVOLOG FLEXPEN SC (01:14)
[2023-11-06] MEDS: NOVOLOG FLEXPEN-HIGH RESISTANCE SC (01:15)
--- NOTE | 2023-11-06 02:52 | PTCARENOTE ---
Assumed care for patient, received report via dayswvft RN. AAOx3 sometimes forgetful. A-fib on the tele monitor. HR up to the 120's to 130's but not sustained. IV heparin gtt, PTT therapeutic x2 next PTT in the morning. Stopped TPN infusion and is
d/c'd. IV antibiotics intermittent. PICC dressing clean, dry, and intact. Incisional dressing on medial abdomen, dressing is clean dry and intact. Pt denies pain at this time. CC #25 placed, pt is putting out urine. CHG bath done. Pt is comfortable
and resting in bed. Pt educated and encouraged to reposition self frequently while in bed. Call zamora is within reach.
[2023-11-06] MEDS: TYLENOL 1000 MG PO (03:57)
[2023-11-06] MEDS: ZOSYN 100 IV ×4 (03:58→22:05)
[2023-11-06 04:23] LABS: % Basophils 0.5 % (0-2); % Eosinophils 1.2 % (0-6); % Immature Granulocytes 1.6 % (0-0.5); % Monocytes 9.1 % (1.7-9.3); % Neutrophils 79.6 % (42.2-75.2); Absolute Basophils 0.1 10^3/uL (0-0.2); Absolute Eosinophils 0.2 10^3/uL (0-0.7); Absolute Immature Granulocytes 0.2 10^3/uL (0-0.05); Absolute Lymphocytes 1.1 10^3/uL (1.2-3.4); Absolute Monocytes 1.3 10^3/uL (0.1-0.6); Absolute Neutrophils 11.3 10^3/uL (1.4-6.5); Hematocrit 28.4 % (39.0-52.0); Hemoglobin 9.3 g/dL (13.0-18.0); Mean Corp Hgb Conc. 32.7 g/dL (33.0-37.0); Mean Corpuscular Hgb 30.7 pg (27.0-31.0); Mean Corpuscular Volume 93.7 fL (80.0-94.0); Mean Platelet Volume 9.4 fL (7.4-10.4); Nucleated Red Blood Cells % 0 % (-); Platelet Count 382 10^3/uL (130-400); Red Blood Cell Count 3.03 10^6/uL (4.70-6.10); Red Cell Dist. Width 14.5 % (11.5-14.5); White Blood Cell Count 14.2 10^3/uL (4.8-10.8)
[2023-11-06 04:40] LABS: APTT 111.8 Sec (23.4-35.0)
[2023-11-06 04:49] LABS: Blood Urea Nitrogen 22 mg/dl (9-20); Calcium 8.8 mg/dl (8.4-10.2); Carbon Dioxide 28 mmol/L (22-30); Chloride 96 mmol/L (98-107); Estimated Creatinine Clearance 108 ml/min; Glucose 94 mg/dl (70-99); Potassium 3.9 mmol/L (3.5-5.1); Sodium 135 mmol/L (135-145); eGFR > 60.00
--- NOTE | 2023-11-06 04:51 | PTCARENOTE ---
PTT out of therapeutic range this AM. Heparin gtt decreased per protocol see worklist.
[2023-11-06 05:54] LABS: Glucose - Point of Care 99 mg/dl (70-99)
[2023-11-06] MEDS: HEPARIN 25000 UNITS/250 ML IV (06:22)
[2023-11-06] MEDS: SPIRIVA RESPIMAT 2.5 MCG 2 PUFF INH (07:12)
--- NOTE | 2023-11-06 08:00 | PN.DE.MGMTRT ---
Insulin Management
- -
11/06/2023: Diabetes Management F/U:
Patient admitted 10/14 with lower abdominal abdominal pain, N&V. PMH: PAF, HTN, COPD, BPH, former tobacco smoker T2DM and allergic rhinitis.
CT A/P-->Stercoral colitis with severe constipation s/p disimpaction in the ER, s/p ex lap with subtotal colectomy- due to severe ischemic bowel on 10/15/2023. Noted for Septic shock requiring multiple pressors, LLL Community acquired PNA and Vent
dependent respiratory failure.
Prior to admission, pt was taking Metformin 500mg BID. Current A1C 6.2%.
Pt awake, resting in bed, pleasant, offers no complaints, able to discuss diabetes mgt.
POD # 22 s/p subtotal colectomy, POD #19 s/p segmented sigmoid resection, POD # 12 washout of hematoma revision of end ileostomy, POD# 5 s/p revision of ileostomy.
Off TPN 11/04 and on estrella controlled diabetic diet. Premeal glucose <100 since dc of TPN. Fasting glucose this AM 94
Will stop AC NovoLog and reduce Lantus to 10 units daily @ 10:00 and change to low corrective with meals
A1C was 6.2%, was taking Metformin prior to admission. Not ideal to resume MFM at this time.
Will closely monitor glucose trend and make adjusts if necessary
Diabetes History
- -
Type of Diabetes: 2
Pre-Admission Diabetes Regimen
11/06/23
04:10
Creatinine 0.7
Lab Results
Hemoglobin A1c 6.2 % (4.0-5.6) H 10/16/23 03:28
Insulin Pump Settings
IP Diabetes Regimen
11/05/23 11/05/23 11/05/23
12:31 17:28 23:23
Glucose
POC Glucose 230 H 149 H 81
11/06/23 11/06/23
04:10 05:43
Glucose 94
POC Glucose 99
Meal type: Lunch
Amount consumed: 90%
Patient Education
--- NOTE | 2023-11-06 08:02 | W.PN.HOSP.TC ---
Today's Communication/Plan
-
abx antifungal as per ID
diuresis rate control as per cardio
wound ostomy care diet as per surgery
resume gigi Izaguirre hep gtt
PT/OT
Assessment / Plan
Assessment / Plan
Physical
General: No Apparent Distress
HEENT: Normocephalic and Atraumatic
Respiratory: Negative Wheezes
Cardiac: Regular Rhythm and S1/S2
GI: Soft ostomy+
Genito-urinary: No Costovertebral Tender
Musculoskeletal: No Edema
Neuro: AO x 3
Hematologic / Lymphatic: No Lymphadenopathy
Psych: Calm
Assessment:
Acute surgical abdomen with stercoral colitis with severe ischemic bowel
Septic shock POA resolved; off pressors, s/p stress dose steroids
- s/p disimpaction in ER
- clinically unstable emergent OR 10/14: ex lap, subtotal colectomy for mesenteric ischemia, ischemic colon
- s/p OR 10/17: exploratory laparotomy, partial colectomy (sigmoid), creation end ileostomy
- s/p OR 10/24: Exploratory laparotomy, small bowel resection, creation end ileostomy (due to necrosis at prior ostomy site)
- s/p OR 10/31: Exploratory laparotomy, revision end ileostomy
- continue Zosyn day 11 11/05 last day per ID. Micafungin added back 11/03 by ID
- TPN completed per GS. LRD per GS.
- continue PPI BID
Persistent Elevating Leukocytosis despite extended course IV abx as above
- Repeat CT abd/pelvis noted ascites possible cirrhosis moderate to severe subcutaneous edema. GI eval appreciated outpt follow up
- IR eval requested for diagnostic/therapeutic paracentesis however noted ascites too small as per IR review of imaging
- Ascites was noted to be old blood as seen during above repeat surgical exploration, hematoma washout performed
- ID eval appreciated
- BNP elevated, ECHO noted preserved EF 60-65% no significant change from prior ECHO 2020
- cardio eval appreciated, diuresis as per cardio
- post-op ileus nausea hiccups, patient briefly strict NPO post procedure, symptoms subsequently improved, gradually advanced to LRD as per surgery
Acute Blood Loss Anemia following repeat procedure as above
Iron Deficiency
Anemia of Chronic disease
- total 2 PRBC transfusions with Lasix since above procedure 10/24
- IV Iron supplementation completed, transitioned to PO
Community acquired PNA, LLL
Vent dependent respiratory failure
- extubated 10/18
- wean O2 as tolerated
- Zosyn as per ID
JOSE from septic shock resolved
Acute metabolic acidosis resolved
A. Fib with RVR
- likely driven by septic shock
- monitor rates; continue Toprol XL
- IV Heparin drip transitioned back to Eliquis
- cardio eval appreciated
Lyme arthritis
- completed 4 week Doxycycline course
Hypernatremia resolved
Mild transaminitis
- resolved
Hx of Essential HTN
- holding JORY/HCTZ
- Lasix as per cardio
Prediabetes [correction to prior documentation]
-recent A1c consistently prediabetic <6.5
- holding Metformin
- completed critical care insulin protocol
- continue SSI
- Diabetes WEATHERIZATION SPECIALIST following
Hx of COPD
Former tobacco use disorder with 24-erpd-rsyw history, quit about 15 years ago
Hypokalemia
Hypophosphatemia
- monitor and replete as necessary
Urinary retention resolved
- continue Flomax
- Celaya catheter d/c
10/25 mild Testicular Ecchymosis Painless, likely superficial bruising healing
- scrotal US appreciated no acute abn's
PT/OT appreciated Acute Rehab
DVT ppx: SCDs + Eliquis
Code: DNR
discussed w pt and his Shefail
I spent a total of 50 minutes with the patient or on the floor. More than 50% of this time involved counseling and coordination of care.
Anticipated Discharge: 24 - 48 hours
Subjective/Interval History
-
Date of Service: November 06, 2023
Overall reports feeling well. tolerating diet
Objective Data
-
Labs:
Laboratory Results
11/06/23 11/06/23
04:10 10:50
WBC 14.2 H
Hgb 9.3 L
Hct 28.4 L
Plt Count 382
APTT 111.8 H Pending
Sodium 135
Potassium 3.9
Chloride 96 L
Carbon Dioxide 28
BUN 22 H
Creatinine 0.7
Glucose 94
Calcium 8.8
Vital Signs:
Vital Signs
Temp Pulse Resp BP Pulse Ox
98.2 F 99 16 130/95 93
11/06/23 04:12 11/06/23 07:13 11/06/23 07:13 11/06/23 06:00 11/06/23 07:13
I&O
11/05/23 11/06/23 11/07/23
06:59 06:59 06:59
Intake Total 2528 / 2528 1794 / 1794
Output Total 2175 / 2175 2105 / 2105
Balance 353 / 353 -311 / -311
[2023-11-06 08:05] LABS: Glucose - Point of Care 100 mg/dl (70-99)
--- NOTE | 2023-11-06 09:07 | W.PN.ID1 ---
Addendum entered and electronically signed by Alanis Epstein MD 11/06/23 13:26:
isolate is c tropicals, switch to fluconazole for 2 further days - 5 day total course
Original Note:
Date of Service
Date of Service: November 06, 2023
Today's Communication
- continue zosyn - today will be final day
- continue micafungin day 3 tentatively of 5, possible switch to oral vs completing course of IV pending ID
Assessment / Plan
S/p ex lap with subtotal colectomy for ischemic colitis - 10/15/23
S/p segmental sigmoid resection, end ileostomy and abd wound closure 10/18/23
S/p Exploratory laparotomy, small bowel resection, creation end ileostomy 10/25/23
S/p Ostomy revisions 10/31
reported penicillin allergy
Leukocytosis - persists today
- peritoneal aerobic and anaerobic cultures pending - yeast - lab will ID, in progress
- continue zosyn - today will be final day
- continue micafungin day 3 tentatively of 5, possible switch to oral vs completing course of IV pending ID
- follow clinically
����������������������������������������������������������
Chief Complaint
-: Leukocytosis
Subjective / Review of Systems
fevers
bp stable
now off of tpn
Vital Signs / Physical Exam
Vital Signs
Vital Signs
Temp Pulse Resp BP Pulse Ox
98.2 F 99 16 130/95 93
11/06/23 04:12 11/06/23 07:13 11/06/23 07:13 11/06/23 06:00 11/06/23 07:13
Physical Exam
Constitutional: No Acute Distress
Cardiovascular: Regular Rate and S1/S2; Negative Murmur or Rub
Pulmonary: Clear and Symmetric; Negative Wheezes or Rales
Gastrointestinal: Soft, Non Tender, Non Distended, Normal Bowel Sounds and Other (stoma pink, with tarry like output)
Skin: Warm and Dry; Negative Rash or Jaundice
Objective Data
Lab Data
Lab Results
11/06/23 04:10
11/06/23 04:10
PT 15.3 Sec (11.4-14.6) H 10/26/23 06:11
INR 1.20 10/26/23 06:11
APTT 111.8 Sec (23.4-35.0) H 11/06/23 04:10
Estimated Creat Clear 108 ml/min 11/06/23 04:10
Lactic Acid 1.3 mmol/L (0.7-2.0) 10/25/23 05:27
Total Bilirubin 0.7 mg/dl (0.2-1.3) 10/31/23 03:54
AST 36 U/L (17-59) 10/31/23 03:54
ALT 23 U/L (0-50) 10/31/23 03:54
Alkaline Phosphatase 67 U/L (38-126) 10/31/23 03:54
Most recent labs reviewed.
Micro Results:
11/01/23 19:05 Anaerobic Culture - Preliminary
Abdomen Culture pending. Anaerobic cultures are examined after 3
days incubation. Additional information to follow.
11/01/23 19:05 Wound Culture - Preliminary
Abdomen Yeast
Gram Stain - Preliminary
10/19/23 13:41 Respiratory Culture - Final
Endotracheal Yeast
Gram Stain - Final
10/15/23 05:43 Blood Culture - Final
Blood/Venous No Growth - Final Report
10/15/23 09:57 Urine Culture - Final
Urine NO GROWTH
[2023-11-06] MEDS: NOVOLOG FLEXPEN-HIGH RESISTANCE 1 UNITS SC (09:46)
[2023-11-06] MEDS: DESENEX/MITRAZOL/ZEASORB 1 APPLIC TOPICAL ×2 (09:47→20:12)
[2023-11-06] MEDS: TOPROL XL 25 MG PO ×2 (09:48→20:11)
[2023-11-06] MEDS: LASIX 40 MG PO (09:48)
[2023-11-06] MEDS: PROTONIX 40 MG PO ×2 (09:48→20:12)
[2023-11-06] MEDS: FEOSOL 325 MG PO (09:48)
[2023-11-06] MEDS: LANTUS 0.22 UNITS SC (09:48)
[2023-11-06] MEDS: FLUSH (NSS) 4 FLUSH IV (09:50)
--- NOTE | 2023-11-06 10:00 | W.PN.GS2 ---
Today's Communication / Plan
-
Heart rate control.
Continue low residue diet, hold TPN, anticipate removing PICC tomorrow.
Assessment / Plan
-
73 yo male with h/o of AFIB on Eliquis presenting with abdominal pain with fecal impaction on initial CT, disimpacted in ED but without relief in pain. Taken to the OR emergently on 10/15 as he clinically deteriorated with increasing abdominal pain
with ischemic colon noted.
POD #22 s/p ex lap with subtotal colectomy in a damage control operation, abdomen left open with AbdThera vac
POD #19 s/p segmental sigmoid resection, end ileostomy and abd wound closure
POD#12 s/p ex lap, washout hematoma; revision of end ileostomy for ischemia
POD#5 s/p ex lap, exploratory laparotomy, revision end ileostomy for ischemia
AFVSS, intermittently tachycardic
Stoma functioning with pink mucosa
Leukocytosis stable
Anemia present but stable
Plan:
--LRD, supplement shakes
--DC TPN, keep PICC line in place for 1 more day.
--Continue PPI BID
--Continue Zosyn- follow ID recommendations, input appreciated
--Diabetes TEACHER ASSOCIATE to continue managing diabetes, input appreciated
--Analgesics/antiemetics as needed
--DC Celaya
--OK for PO therapeutic anticoagulation
--OOB/ambulate as tolerated, PT/OT following
--SCD's while in bed
Time Spent
Total Time Spent with Patient (in minutes): 20
Subjective Data
-
Date of Service: November 06, 2023
Interval Events:
No acute events overnight. Slept well. Pain Controlled. Denies Nausea/Vomiting, +bowel function. Tolerating diet.
Objective Data
-
Intake and Output
11/05/23 11/06/23 11/07/23
06:59 06:59 06:59
Intake Total 2528 / 2528 1794 / 1794
Output Total 2175 / 2175 2105 / 2105
Balance 353 / 353 -311 / -311
Intake:
Oral fluids 340 / 340 300 / 300
IV piggybacks 700 / 700 750 / 750
TPN/PPN 1488 / 1488 744 / 744
Output:
Liquid stool amount 200 / 200 305 / 305
Ileostomy 200 / 200 305 / 305
Urine, Celaya 1325 / 1325 1300 / 1300
Urine, Voided 650 / 650 500 / 500
Other:
How many times incontinent 1
SATURATED amount urine
Vital Signs
Temp Pulse Resp BP Pulse Ox
98.2 F 99 19 130/95 93
11/06/23 09:13 11/06/23 08:00 11/06/23 08:00 11/06/23 08:00 11/06/23 08:00
Lab Results
11/06/23 04:10
11/06/23 04:10
Calcium 8.8 mg/dl (8.4-10.2) 11/06/23 04:10
Phosphorus 3.1 mg/dl (2.5-4.5) 10/31/23 03:54
Magnesium 1.9 mg/dl (1.6-2.3) 10/31/23 03:54
Total Bilirubin 0.7 mg/dl (0.2-1.3) 10/31/23 03:54
Direct Bilirubin 0.2 mg/dl (0.0-0.4) 10/26/23 06:11
AST 36 U/L (17-59) 10/31/23 03:54
ALT 23 U/L (0-50) 10/31/23 03:54
Alkaline Phosphatase 67 U/L (38-126) 10/31/23 03:54
Total Protein 5.1 g/dl (6.3-8.2) L 10/31/23 03:54
Albumin 2.5 g/dl (3.5-5.0) L 10/31/23 03:54
Physical Exam
-
GENERAL/NEURO: Awake, Alert, no distress
CHEST: Unlabored breathing on RA
ABDOMEN: Soft, Non-Tender, Non-Distended, stoma is pink patent and productive. [place] in place, a part of the supraumbilical portion of the incision is oozing slightly, this was gently probed but no pus or concern for infection.
--- NOTE | 2023-11-06 10:50 | W.PN.CARDCBS ---
Addendum entered and electronically signed by Ziggy Simms MD 11/06/23 12:00:
I saw and examined the patient.
The JUNIOR HIGH SCHOOL PRINCIPAL or PA's note was reviewed and I agree with the note.
Comment: General: Well developed, well nourished in NAD.
Neck: Supple, no JVD, HJR, carotids +2 B/L, no bruits bilaterally.
Heart: Non displaced PMI, RRR, no murmurs, No S3, S4, no rubs.
Lungs: Clear to auscultation bilaterally, no wheeze, rhonchi, rubs bilaterally,
normal expiratory phase.
Extremities: No clubbing, cyanosis or edema bilaterally.
Neuro: Grossly nonfocal, awake, alert and oriented x3.
May be volume depleted. Hold Lasix. Increase Toprol for tachycardia. Resume Eliquis per general surgery.
Original Note:
Today's Communication / Plan
-
Hold Lasix
Increase Toprol to 25 mg twice a day and attempt of better rate control
Resume Eliquis
Impression / Plan
-
.
PCP: Dr. Herrera
Cardiology: Dr. Simms, last seen 06/29/22
Impression:
Admitted with stercoral colitis and sepsis 10/15/23
s/p s/p ex lap with subtotal colectomy in a damage control operation 10/15/23
s/p segmental sigmoid resection, end ileostomy and abd wound closure 10/18/23
s/p exploratory lap, small bowel resection, creation end ileostomy, secondary to stoma with necrotic mucosa 10/25/2023
s/p exploratory lap and revision of end ileostomy 11/01/23
post op anemia
Acute HFpEF
LLL PNA
Leukocytosis
JOSE
Hypernatremia
Hypokalemia
Elevated LFTs
Permanent Afib with RVR
DM 2
COPD
Echo 10/25/23: EF 60-65%, trace MR, aortic sclerosis without stenosis
Plan:
Patient had revision of the end of his ileostomy 11/01/23. Now back on low residue diet, tolerating oral meds.
Atrial fibrillation is permanent and was previously rate controlled without AV aileen blocking agents prior to admission. Patient is new to Toprol.
Patient has been sedentary since admission. Whenever he attempts to ambulate heart rate increases into 110's-130's with activity. Would increase Toprol to 25 mg twice a day and attempts of better rate control.
Cleared by surgery to resume OAC. Eliquis added back 11/06/23 in am
Hgb 9.3. Continue to monitor H/H with resumption of OAC. Post op anemia with 2u pRBCs this admission (1 u 10/25 & 1 u 10/26)
EF is preserved on echo this admission.
Weight overall stable and he appears euvolemic.
Weight is 25 pounds less than admission weight. Would stop Lasix. Continue to monitor trend weight.
He had been taking HCTZ with ACEI as outpatient. HCTZ has been stopped. ACEI also held. BP stable on Toprol. Would keep off JORY-I for now and can be added back as outpatient if needed.
Continue supportive care/nutrition.
Plan for pt to go to [place]
HPI: Patient came to [facility] 10[facility]23 with abdominal pain and constipation and was admitted with sepsis and stercoral colitis, cardiology is now consulted for acute HF. Patient came to ER with abdominal pain and constipation and appeared to be septic.
He was started on pressors and later taken to the OR same day for a damage control operation with subtotal colectomy. He returned to the OR 10/18/23 for wound closure and end ileostomy. Patient has received 17.25 liters of IVFs since admission. He is
now allowed sips of water and is receiving TPN. Cardiology is asked to see patient for possible acute HF. His weight is overall up 10 lbs from admission despite NPO and bowel surgery. He denies edema, bloating or SOB. His pro-BNP was 3680 yesterday
and he was started on Lasix 40 mg IV daily. Patient denies chest pain. He has permanent Afib and HRs are rapid, but he denies palpitations. He was not taking a rate controlling med prior to admission, but was started on Toprol XL 50 mg BID
yesterday.
Progress Note - Motion Study Analyst
Subjective
Date of Service: November 06, 2023
Patient seen and examined. Patient's at bedside. Patient overall reports he is feeling well. He reports he did try to move around in bed and heart rates elevated and alarms went off early this morning. He denies chest pain, shortness
breath, dizziness, lightheadedness, edema, orthopnea or PND
Objective
Labs:
11/06/23 04:10
11/06/23 04:10
Labs
Hgb 9.3 g/dL (13.0-18.0) L 11/06/23 04:10
Hct 28.4 % (39.0-52.0) L 11/06/23 04:10
Plt Count 382 10^3/uL (130-400) 11/06/23 04:10
PT 15.3 Sec (11.4-14.6) H 10/26/23 06:11
INR 1.20 10/26/23 06:11
APTT 111.8 Sec (23.4-35.0) H 11/06/23 04:10
Sodium 135 mmol/L (135-145) 11/06/23 04:10
Potassium 3.9 mmol/L (3.5-5.1) 11/06/23 04:10
BUN 22 mg/dl (9-20) H 11/06/23 04:10
Creatinine 0.7 mg/dL (0.7-1.3) 11/06/23 04:10
Glucose 94 mg/dl (70-99) 11/06/23 04:10
Vital Signs and I&O:
Vital Signs
Temp Pulse Resp BP Pulse Ox
98.2 F 99 19 130/95 93
11/06/23 09:13 11/06/23 08:00 11/06/23 08:00 11/06/23 08:00 11/06/23 08:00
Vital Signs
Temp Pulse Resp BP Pulse Ox
98.2 F 99 19 130/95 93
11/06/23 09:13 11/06/23 08:00 11/06/23 08:00 11/06/23 08:00 11/06/23 08:00
Intake & Output
11/04/23 11/05/23 11/06/23 11/07/23
06:59 06:59 06:59 06:59
Intake Total 944 / 944 2528 / 2528 1794 / 1794
Output Total 2200 / 2200 2175 / 2175 2105 / 2105
Balance -1256 / -1256 353 / 353 -311 / -311
Physical Exam
Physical Exam
GEN: No distress, awake, Ox3
HEENT: supple, anicteric, mmm
LUNGS: CTA, no wheezes/rales
CV: Reg, S1/S2, no murmur, rub or gallop
ABD: soft, BS+, NT/ND
EXT: No edema, clubbing or cyanosis
NEURO: Gross non-focal
SKIN: No rash, warm, dry, pink
[2023-11-06] MEDS: LANTUS SC (11:25)
[2023-11-06] MEDS: ELIQUIS 5 MG PO ×2 (11:25→20:12)
[2023-11-06] MEDS: MYCAMINE 105 MG IV (11:26)
[2023-11-06] MEDS: FLUSH (NSS) 3 FLUSH IV (11:26)
[2023-11-06 11:56] LABS: Glucose - Point of Care 112 mg/dl (70-99)
--- NOTE | 2023-11-06 13:05 | WOUNDNOTE ---
[facility] RN NOTE: Patient visited for stoma teaching and appliance change. Stoma is slightly budded and pink. No leaking noted from on old barrier and peristomal skin is clean and intact. Ostomy appliance changed with Ross pouch # [id number], Mike seal
and barrier #[id number]. Patient stated he was not ready to look at stoma but was open to watching appliance change and demonstration of pouch emptying. Midline incision with clean and intact dressing. Heels intact and off-loaded on pillows. Sacrum to be
assessed when patient ambulates to chair. Air cushion in chair. Plan is for SNF. Next pouch change due 11/09.
[2023-11-06] MEDS: NOVOLOG FLEXPEN-LOW RESISTANCE SC ×2 (13:45→18:06)
--- NOTE | 2023-11-06 13:48 | PTCARENOTE ---
Heparin drip discontinued. Patient started on eliquis this AM. Patient advanced to 1999 ADA diet. Appetite is not great. Ensure supplemental drink ordered, patient refused the ensure. Afib on monitor. Vital signs stable, afebrile.
[2023-11-06 15:03] LABS: Glucose - Point of Care 103 mg/dl (70-99)
[2023-11-06] MEDS: FLUSH (NSS) 2 FLUSH IV (16:17)
--- NOTE | 2023-11-06 17:18 | CM ---
Patient who is s/p ex lap, subtotal colectomy 10/14, s/p ex lap, partial colectomy, creation end ileostomy 10/17, s/p ex lap, sm bowel resection, creation end ileostomy, s/p Ex lap, SBR, creation end ileostomy for ischemic stoma 10/24, Exploratory
laparotomy, revision end ileostomy 10/31. Room air. TPN held. Low residue diabetic diet. Receiving Heparin gtt, IV Abx. PT & OT 11/02 recommend acute rehab. Seen by ostomy nurse.
Physiatry Consult 10/23- patient accepted by [facility].
Spoke with [facility] who is following the patient; they can accept when medically ready.
Will need insurance auth for [place].
Plan [facility] when medically ready.
[2023-11-06] MEDS: FLOMAX 0.4 MG PO (18:05)
[2023-11-06 21:55] LABS: Glucose - Point of Care 100 mg/dl (70-99)
[2023-11-07] VITALS (15 sets, daily range): BP systolic 111–155; BP diastolic 80–105; PULSE 85; O2SAT 95; BMI 25.8
--- NOTE | 2023-11-07 01:38 | PTCARENOTE ---
Assumed care for patient, received report via dayshift RN. AAOx3 withdrawn, and sometimes forgetful. A-fib on tele. IV antibiotics given overnight. PICC dressing clean, dry, and intact. Incisional dressing on medial abdomen is clean, dry, and
intact. Pt denies any pain. Ileostomy intact. CC #25. Pt educated and encouraged to reposition self frequently while in bed. Pt is sleeping at this time with call zamora in reach.
[2023-11-07 05:21] LABS: Hematocrit 26.6 % (39.0-52.0); Mean Corp Hgb Conc. 33.8 g/dL (33.0-37.0); Mean Corpuscular Hgb 30.6 pg (27.0-31.0); Mean Corpuscular Volume 90.5 fL (80.0-94.0); Mean Platelet Volume 9.5 fL (7.4-10.4); Platelet Count 393 10^3/uL (130-400); Red Blood Cell Count 2.94 10^6/uL (4.70-6.10); Red Cell Dist. Width 14.9 % (11.5-14.5)
[2023-11-07 05:49] LABS: Blood Urea Nitrogen 21 mg/dl (9-20); Calcium 8.9 mg/dl (8.4-10.2); Carbon Dioxide 27 mmol/L (22-30); Chloride 99 mmol/L (98-107); Estimated Creatinine Clearance 94 ml/min; Glucose 78 mg/dl (70-99); Magnesium 1.9 mg/dl (1.6-2.3); Phosphorus 3.6 mg/dl (2.5-4.5); Potassium 3.9 mmol/L (3.5-5.1); Sodium 136 mmol/L (135-145); eGFR > 60.00
[2023-11-07] MEDS: SPIRIVA RESPIMAT 2.5 MCG 2 PUFF INH (07:07)
--- NOTE | 2023-11-07 07:31 | W.PN.HOSP.TC ---
Today's Communication/Plan
-
discharge planning [facility] pending improvement in HR exertional tachycardia
cont metoprolol as per Cardio
wound/ostomy care as per Surgery
antifungal as per ID
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
Assessment / Plan
Assessment / Plan
Physical
General: No Apparent Distress
HEENT: Normocephalic and Atraumatic
Respiratory: Negative Wheezes
Cardiac: Regular Rhythm and S1/S2
GI: Soft ostomy+
Genito-urinary: No Costovertebral Tender
Musculoskeletal: No Edema
Neuro: AO x 3
Hematologic / Lymphatic: No Lymphadenopathy
Psych: Calm
Assessment:
Acute surgical abdomen with stercoral colitis with severe ischemic bowel
Septic shock POA resolved; off pressors, s/p stress dose steroids
- s/p disimpaction in ER
- clinically unstable emergent OR 10/14: ex lap, subtotal colectomy for mesenteric ischemia, ischemic colon
- s/p OR 10/17: exploratory laparotomy, partial colectomy (sigmoid), creation end ileostomy
- s/p OR 10/24: Exploratory laparotomy, small bowel resection, creation end ileostomy (due to necrosis at prior ostomy site)
- s/p OR 10/31: Exploratory laparotomy, revision end ileostomy
- continue Zosyn day 11 11/05 last day per ID. Micafungin added back 11/03 by ID transitioned to Fluconazole following Identification Leni tropicalis from wound cx (last day antifungal tx 11/08)
- TPN completed per GS. LRD per GS.
- continue PPI BID
Persistent Elevating Leukocytosis despite extended course IV abx as above
- Repeat CT abd/pelvis noted ascites possible cirrhosis moderate to severe subcutaneous edema. GI eval appreciated outpt follow up
- IR eval requested for diagnostic/therapeutic paracentesis however noted ascites too small as per IR review of imaging
- Ascites was noted to be old blood as seen during above repeat surgical exploration, hematoma washout performed
- ID eval appreciated
- BNP elevated, ECHO noted preserved EF 60-65% no significant change from prior ECHO 2020
- cardio eval appreciated, diuresis as per cardio likely iatrogenic fluid overload, diuresis since stopped/completed
- post-op ileus nausea hiccups, patient briefly strict NPO post procedure, symptoms subsequently improved, gradually advanced to LRD as per surgery
Acute Blood Loss Anemia following repeat procedure as above
Iron Deficiency
Anemia of Chronic disease
- total 2 PRBC transfusions with Lasix since above procedure 10/24
- IV Iron supplementation completed, transitioned to PO
Community acquired PNA, LLL
Vent dependent respiratory failure
- extubated 10/18
- wean O2 as tolerated
- Zosyn completed as per ID
JOSE from septic shock resolved
Acute metabolic acidosis resolved
A. Fib with RVR
Symptomatic exertional tachycardia
- likely driven by septic shock
- monitor rates; continue Toprol XL titrated up as per cardio
- IV Heparin drip transitioned back to Eliquis
- cardio eval appreciated
Lyme arthritis
- completed 4 week Doxycycline course
Hypernatremia resolved
Mild transaminitis
- resolved
Hx of Essential HTN
- holding JORY/HCTZ
- Lasix as per cardio
Prediabetes [correction to prior documentation]
-recent A1c consistently prediabetic <6.5
- holding Metformin
- completed critical care insulin protocol
- continue SSI
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
Hx of COPD
Former tobacco use disorder with [id number] history, quit about 15 years ago
Hypokalemia
Hypophosphatemia
- monitor and replete as necessary
Urinary retention resolved
- continue Flomax
- Celaya catheter d/c
10/25 mild Testicular Ecchymosis Painless, likely superficial bruising healing
- scrotal US appreciated no acute abn's
PT/OT appreciated [facility]
DVT ppx: SCDs + Eliquis
Code: DNR
discussed w pt and his Shefali
I spent a total of 50 minutes with the patient or on the floor. More than 50% of this time involved counseling and coordination of care.
Anticipated Discharge: 24 - 48 hours
Subjective/Interval History
-
Date of Service: November 07, 2023
No acute distress. Reports feeling well. Tolerating diet.
Objective Data
-
Labs:
Laboratory Results
11/07/23
04:59
WBC 12.0 H
Hgb 9.0 L
Hct 26.6 L
Plt Count 393
Sodium 136
Potassium 3.9
Chloride 99
Carbon Dioxide 27
BUN 21 H
Creatinine 0.8
Glucose 78
Calcium 8.9
Vital Signs:
Vital Signs
Temp Pulse Resp BP Pulse Ox
99.2 F 98 16 155/94 94
11/07/23 04:05 11/07/23 07:08 11/07/23 07:08 11/07/23 06:00 11/07/23 07:08
I&O
11/06/23 11/07/23 11/08/23
06:59 06:59 06:59
Intake Total 1794 / 1794 835 / 835
Output Total 2105 / 2105 2320 / 2320
Balance -311 / -311 -1485 / -1485
[2023-11-07] MEDS: TOPROL XL 25 MG PO (08:20)
[2023-11-07] MEDS: PROTONIX 40 MG PO ×2 (08:20→19:32)
[2023-11-07] MEDS: DIFLUCAN 400 MG PO (08:21)
[2023-11-07] MEDS: FEOSOL 325 MG PO (08:21)
[2023-11-07] MEDS: ELIQUIS 5 MG PO ×2 (08:21→19:32)
[2023-11-07] MEDS: DESENEX/MITRAZOL/ZEASORB 1 APPLIC TOPICAL ×2 (08:22→19:32)
--- NOTE | 2023-11-07 08:33 | W.PN.ID1 ---
Date of Service
Date of Service: November 07, 2023
Today's Communication
- completed course of zosyn yesterday
- switched to fluconazole to complete 5 day course 11/03-11/08
Assessment / Plan
S/p ex lap with subtotal colectomy for ischemic colitis - 10/15/23
S/p segmental sigmoid resection, end ileostomy and abd wound closure 10/18/23
S/p Exploratory laparotomy, small bowel resection, creation end ileostomy 10/25/23
S/p Ostomy revisions 10/31
reported penicillin allergy
Leukocytosis - persists today
- c tropicals from the abdominal culture
- completed course of zosyn yesterday
- switched to fluconazole to complete 5 day course 11/03-11/08
- follow up with surgery
����������������������������������������������������������
Chief Complaint
-: Leukocytosis and Other (intraabdominal infection)
Subjective / Review of Systems
afebrile
no events overnight
Vital Signs / Physical Exam
Vital Signs
Vital Signs
Temp Pulse Resp BP Pulse Ox
98.1 F 98 16 141/102 94
11/07/23 07:00 11/07/23 08:20 11/07/23 07:08 11/07/23 08:20 11/07/23 07:08
Physical Exam
Constitutional: No Acute Distress
Cardiovascular: Regular Rate and S1/S2; Negative Murmur or Rub
Pulmonary: Clear and Symmetric; Negative Wheezes or Rales
Gastrointestinal: Soft, Non Tender, Non Distended, Normal Bowel Sounds and Other (stoma pink)
Skin: Warm and Dry; Negative Rash or Jaundice
Objective Data
Lab Data
Lab Results
11/07/23 04:59
11/07/23 04:59
PT 15.3 Sec (11.4-14.6) H 10/26/23 06:11
INR 1.20 10/26/23 06:11
APTT Cancelled 11/06/23 10:50
Estimated Creat Clear 94 ml/min 11/07/23 04:59
Lactic Acid 1.3 mmol/L (0.7-2.0) 10/25/23 05:27
Total Bilirubin 0.7 mg/dl (0.2-1.3) 10/31/23 03:54
AST 36 U/L (17-59) 10/31/23 03:54
ALT 23 U/L (0-50) 10/31/23 03:54
Alkaline Phosphatase 67 U/L (38-126) 10/31/23 03:54
Most recent labs reviewed.
Micro Results:
11/01/23 19:05 Wound Culture - Preliminary
Abdomen Leni tropicalis
Gram Stain - Preliminary
11/01/23 19:05 Anaerobic Culture - Preliminary
Abdomen Culture pending. Anaerobic cultures are examined after 3
days incubation. Additional information to follow.
10/19/23 13:41 Respiratory Culture - Final
Endotracheal Yeast
Gram Stain - Final
10/15/23 05:43 Blood Culture - Final
Blood/Venous No Growth - Final Report
10/15/23 09:57 Urine Culture - Final
Urine NO GROWTH
--- NOTE | 2023-11-07 08:35 | PN.DE.MGMTRT ---
Insulin Management
- -
11/07/2023: Diabetes Management Follow up:
Patient admitted 10/14 with lower abdominal abdominal pain, N&V. PMH: PAF, HTN, COPD, BPH, former tobacco smoker T2DM and allergic rhinitis.
CT A/P-->Stercoral colitis with severe constipation s/p disimpaction in the ER, s/p ex lap with subtotal colectomy- due to severe ischemic bowel on 10/15/2023. Noted for Septic shock requiring multiple pressors, LLL Community acquired PNA and Vent
dependent respiratory failure.
Prior to admission, pt was taking Metformin 500mg BID. Current A1C 6.2%.
Pt awake, resting in bed, pleasant, offers no complaints, able to discuss diabetes mgt.
POD # 23 s/p subtotal colectomy, POD #20 s/p segmented sigmoid resection, POD # 13 washout of hematoma revision of end ileostomy, POD# 6 s/p revision of ileostomy.
Off TPN 11/04 and on estrella controlled diabetic diet. Premeal glucose <100 since dc of TPN. Fasting glucose this AM 94
Will stop AC NovoLog and reduce Lantus to 10 units daily @ 10:00 and change to low corrective with meals
A1C was 6.2%, was taking Metformin prior to admission. Not ideal to resume MFM at this time.
Will closely monitor glucose trend and make adjusts if necessary
Discussed with patients nurse.
Diabetes History
- -
Type of Diabetes: 2
Pre-Admission Diabetes Regimen
11/07/23
04:59
Creatinine 0.8
Lab Results
Hemoglobin A1c 6.2 % (4.0-5.6) H 10/16/23 03:28
Insulin Pump Settings
IP Diabetes Regimen
11/06/23 11/06/23 11/06/23
11:35 14:52 21:43
Glucose
POC Glucose 112 H 103 H 100 H
11/07/23
04:59
Glucose 78
POC Glucose
Meal type: Dinner
Meal type: Lunch
Meal type: Breakfast
Amount consumed: 5%
Amount consumed: 90%
Patient Education
[2023-11-07] MEDS: NOVOLOG FLEXPEN-LOW RESISTANCE SC ×3 (09:10→16:27)
[2023-11-07 09:20] LABS: Glucose - Point of Care 79 mg/dl (70-99)
[2023-11-07] MEDS: LANTUS 0.1 UNITS SC (10:21)
--- NOTE | 2023-11-07 10:47 | W.PN.GS2 ---
Today's Communication / Plan
-
-- No changes from surgical perspective
-- Trend CBC
-- Monitor stoma output, encouraged PO intake and nutrition with TPN DC'd
Assessment / Plan
-
73 yo male with h/o of AFIB on Eliquis presenting with abdominal pain with fecal impaction on initial CT, disimpacted in ED but without relief in pain. Taken to the OR emergently on 10/15 as he clinically deteriorated with increasing abdominal pain
with ischemic colon noted.
POD #23 s/p ex lap with subtotal colectomy in a damage control operation, abdomen left open with AbdThera vac
POD #20 s/p segmental sigmoid resection, end ileostomy and abd wound closure
POD#13 s/p ex lap, washout hematoma; revision of end ileostomy for ischemia
POD#6 s/p ex lap, exploratory laparotomy, revision end ileostomy for ischemia
AFVSS, intermittently tachycardic
Stoma functioning with pink mucosa, monitor for high output (looks good now, possibly old blood but Hb stable)
Leukocytosis trending down
Anemia present but stable
Plan:
--Diabetic diet, supplement shakes
--Continue PPI BID
--Continue abx: ID on board
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
--Analgesics/antiemetics as needed
--PO therapeutic anticoagulation
--OOB/ambulate as tolerated, PT/OT following
--SCD's while in bed
Subjective Data
-
Date of Service: November 07, 2023
No complaints. Denies any nausea vomiting. Tolerating low residue diet. Reports passing flatus and voiding stool via ostomy. Afebrile. Minimal to no ambulation.
Objective Data
-
Intake and Output
11/06/23 11/07/23 11/08/23
06:59 06:59 06:59
Intake Total 1794 / 1794 835 / 835
Output Total 2105 / 2105 2320 / 2320
Balance -311 / -311 -1485 / -1485
Intake:
Oral fluids 300 / 300 445 / 445
IV piggybacks 750 / 750 390 / 390
TPN/PPN 744 / 744
Output:
Liquid stool amount 305 / 305 320 / 320
Ileostomy 305 / 305 320 / 320
Urine, Celaya 1300 / 1300
Urine, Voided 500 / 500 1999 / 1999
Other:
How many times incontinent 1
SATURATED amount urine
Vital Signs
Temp Pulse Resp BP Pulse Ox
98.1 F 98 19 141/102 94
11/07/23 07:00 11/07/23 08:20 11/07/23 08:00 11/07/23 08:20 11/07/23 08:00
Lab Results
11/07/23 04:59
11/07/23 04:59
Calcium 8.9 mg/dl (8.4-10.2) 11/07/23 04:59
Phosphorus 3.6 mg/dl (2.5-4.5) 11/07/23 04:59
Magnesium 1.9 mg/dl (1.6-2.3) 11/07/23 04:59
Total Bilirubin 0.7 mg/dl (0.2-1.3) 10/31/23 03:54
Direct Bilirubin 0.2 mg/dl (0.0-0.4) 10/26/23 06:11
AST 36 U/L (17-59) 10/31/23 03:54
ALT 23 U/L (0-50) 10/31/23 03:54
Alkaline Phosphatase 67 U/L (38-126) 10/31/23 03:54
Total Protein 5.1 g/dl (6.3-8.2) L 10/31/23 03:54
Albumin 2.5 g/dl (3.5-5.0) L 10/31/23 03:54
Physical Exam
-
Gen: NAD
Abd: soft, NT/ND, non-peritoneal, midline c/d/i - no erythema, ecchymosis or drainage, jabari in place, ostomy PPV - dark thick stool, possibly old blood, no red blood, minimal air
--- NOTE | 2023-11-07 11:50 | CM ---
Addendum entered by Carmelina Pitts RN 11/07/23 12:10:
[facility] has patient name entered as Daron Younger. Same . Shilo Younger not found in [facility].
Original Note:
Patient who is s/p ex lap, subtotal colectomy 10/14, s/p ex lap, partial colectomy, creation end ileostomy 10/17, s/p ex lap, sm bowel resection, creation end ileostomy, s/p Ex lap, SBR, creation end ileostomy for ischemic stoma 10/24, Exploratory
laparotomy, revision end ileostomy 10/31. Room air. Diabetic diet. PT & OT recommend acute rehab. Seen by ostomy nurse.
Message from Dr Christy; anticipate patient will be medically cleared for d/c tomorrow.
Spoke with [facility]; they will have an available bed tomorrow and will be able to accept the patient once insurance approves.
Spoke with patient who agrees with [facility] tomorrow. He was made aware that [facility] will accept him once his insurance approves.
Phone call to Shefali; left message that indicated her would be ready for d/c tomorrow and insurance auth was pending.
Request for auth for [facility] initiated via [employer]; Request ID [id number]. Clinicals sent via [employer].
[facility] [employer] [email or web address], as initial request via [employer] tagged incorrectly as a Shelter request, second request indicated Acute Rehab - same request ID as above.
Plan [facility] tomorrow once insurance approves.
--- NOTE | 2023-11-07 13:00 | W.PN.CARDCBS ---
Addendum entered and electronically signed by Ziggy Simms MD 11/07/23 16:46:
I saw and examined the patient.
The STORE ADMINISTRATOR or PA's note was reviewed and I agree with the note.
Comment: General: Well developed, well nourished in NAD.
Neck: Supple, no JVD, HJR, carotids +2 B/L, no bruits bilaterally.
Heart: Non displaced PMI, irregular, no murmurs, No S3, S4, no rubs.
Lungs: Scattered rhonchi
Extremities: No clubbing, cyanosis or edema bilaterally.
Neuro: Grossly nonfocal, awake, alert and oriented x3.
He remains tachycardic with exertion. Will increase Toprol to 50 mg p.o. twice daily. May be an element of volume depletion after aggressive diuresis. Stable cardiology status for transfer to rehab when heart rate improved. Discussed with
primary service. Outpatient follow-up has already been arranged.
Original Note:
Today's Communication / Plan
-
Increase Toprol to 50 mg twice a day
Keep off Lasix
Continue Eliquis
Outpatient cardiology follow-up has been arranged
Impression / Plan
-
.
PCP: Dr. Herrera
Cardiology: Dr. Simms, last seen 06/29/22
Impression:
Admitted with stercoral colitis and sepsis 10/15/23
s/p s/p ex lap with subtotal colectomy in a damage control operation 10/15/23
s/p segmental sigmoid resection, end ileostomy and abd wound closure 10/18/23
s/p exploratory lap, small bowel resection, creation end ileostomy, secondary to stoma with necrotic mucosa 10/25/2023
s/p exploratory lap and revision of end ileostomy 11/01/23
post op anemia
Acute HFpEF
LLL PNA
Leukocytosis
JOSE
Hypernatremia
Hypokalemia
Elevated LFTs
Permanent Afib with RVR
DM 2
COPD
Echo 10/25/23: EF 60-65%, trace MR, aortic sclerosis without stenosis
Plan:
Patient had revision of the end of his ileostomy 11/01/23. Now back on DM diet, tolerating oral meds.
Atrial fibrillation is permanent and was previously rate controlled without AV aileen blocking agents prior to admission. Patient is new to Toprol.
Patient has been sedentary since admission. Whenever he attempts to ambulate heart rate increases into 110's-130's with activity.
Increased to Toprol to 25 mg twice a day 11/06/23. HR still not optimally controlled increase to 50 mg BID in attempt of better rate control.
Eliquis added back 11/06/23 in am
Hgb 9.0. Continue to monitor H/H with resumption of OAC. Post op anemia with low Hgb of 7.1 resolved w/ 2u pRBCs this admission (1 u 10/25 & 1 u 10/26)
EF is preserved on echo this admission.
Weight overall stable and he appears euvolemic.
Weight is 25 pounds less than admission weight. Lasix d/ishan 11/05. Continue to monitor trend weight.
He had been taking HCTZ with ACEI as outpatient. HCTZ has been stopped. ACEI also held. BP stable on Toprol. Would keep off JORY-I for now and can be added back as outpatient if needed.
Continue supportive care/nutrition.
Plan for pt to go to [facility]
HPI: Patient came to [facility] 10/15/23 with abdominal pain and constipation and was admitted with sepsis and stercoral colitis, cardiology is now consulted for acute HF. Patient came to ER with abdominal pain and constipation and appeared to be septic.
He was started on pressors and later taken to the OR same day for a damage control operation with subtotal colectomy. He returned to the OR 10/18/23 for wound closure and end ileostomy. Patient has received 17.25 liters of IVFs since admission. He is
now allowed sips of water and is receiving TPN. Cardiology is asked to see patient for possible acute HF. His weight is overall up 10 lbs from admission despite NPO and bowel surgery. He denies edema, bloating or SOB. His pro-BNP was 3680 yesterday
and he was started on Lasix 40 mg IV daily. Patient denies chest pain. He has permanent Afib and HRs are rapid, but he denies palpitations. He was not taking a rate controlling med prior to admission, but was started on Toprol XL 50 mg BID
yesterday.
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
Subjective
Date of Service: November 07, 2023
Patient seen and examined. Patient reports during physical therapy his heart rate elevated and he noted palpitations and felt dizzy. Symptoms resolved with sitting down
Objective
Labs:
11/07/23 04:59
11/07/23 04:59
Labs
Hgb 9.0 g/dL (13.0-18.0) L 11/07/23 04:59
Hct 26.6 % (39.0-52.0) L 11/07/23 04:59
Plt Count 393 10^3/uL (130-400) 11/07/23 04:59
PT 15.3 Sec (11.4-14.6) H 10/26/23 06:11
INR 1.20 10/26/23 06:11
APTT Cancelled 11/06/23 10:50
Sodium 136 mmol/L (135-145) 11/07/23 04:59
Potassium 3.9 mmol/L (3.5-5.1) 11/07/23 04:59
BUN 21 mg/dl (9-20) H 11/07/23 04:59
Creatinine 0.8 mg/dL (0.7-1.3) 11/07/23 04:59
Glucose 78 mg/dl (70-99) 11/07/23 04:59
Vital Signs and I&O:
Vital Signs
Temp Pulse Resp BP Pulse Ox
98.3 F 98 19 141/102 94
09/17/24 11:05 11/07/23 08:20 11/07/23 08:00 11/07/23 08:20 11/07/23 08:00
Vital Signs
Temp Pulse Resp BP Pulse Ox
98.3 F 98 19 141/102 94
11/07/23 11:05 11/07/23 08:20 11/07/23 08:00 11/07/23 08:20 11/07/23 08:00
Intake & Output
11/05/23 11/06/23 11/07/23 11/08/23
06:59 06:59 06:59 06:59
Intake Total 2528 / 2528 1794 / 1794 835 / 835
Output Total 2175 / 2175 2105 / 2105 2320 / 2320 550 / 550
Balance 353 / 353 -311 / -311 -1485 / -1485 -550 / -550
Physical Exam
Physical Exam
GEN: No distress, awake, Ox3
HEENT: supple, anicteric, mmm
LUNGS: CTA, no wheezes/rales
CV: Reg, S1/S2, no murmur, rub or gallop
ABD: soft, BS+, NT/ND
EXT: No edema, clubbing or cyanosis
NEURO: Gross non-focal
SKIN: No rash, warm, dry, pink
--- NOTE | 2023-11-07 13:45 | VATNOTE ---
TT sent to Dr. Christy asking if PICC line can be D/C'd. TPN has been stopped and no needs currently for PICC. Dr. Christy told this RN to ask surgery for D/C order. TT sent to surgery, but no response received. Information passed on the oncoming RN as
this RN's shift was over. Will continue to monitor.
[2023-11-07 13:50] LABS: Glucose - Point of Care 87 mg/dl (70-99)
--- NOTE | 2023-11-07 15:08 | PTCARENOTE ---
Patient is AX3. PT worked with patient today and his heart rate increased with activity. Patient did remain out of bed and into the chair for about 3 hours. Patient is in controlled Afib. Continuing to monitor and call zamora within reach.
[2023-11-07 16:37] LABS: Glucose - Point of Care 75 mg/dl (70-99)
[2023-11-07] MEDS: FLOMAX 0.4 MG PO (17:14)
[2023-11-07] MEDS: TOPROL XL 50 MG PO (19:32)
[2023-11-07 22:11] LABS: Glucose - Point of Care 131 mg/dl (70-99)
[2023-11-07] MEDS: MELATONIN 5 MG PO (23:13)
[2023-11-08] VITALS (14 sets, daily range): BP systolic 128–155; BP diastolic 87–109; BMI 25.4
--- NOTE | 2023-11-08 03:59 | DOWNTIME ---
There was a [employer] Client Flash Ranging Crewmember Downtime on 11/08/2023 from 0100 to 11/08/2023 at 0300. Downtime documentation of patient's care, including medication administrations, has been reconciled in the electronic record per guidelines. Refer to the
patient's paper chart under the miscellaneous tab to see printed paper medication records and downtime forms.
[2023-11-08 04:01] LABS: Hematocrit 27.9 % (39.0-52.0); Mean Corp Hgb Conc. 32.3 g/dL (33.0-37.0); Mean Corpuscular Hgb 30.7 pg (27.0-31.0); Mean Corpuscular Volume 95.2 fL (80.0-94.0); Mean Platelet Volume 9.6 fL (7.4-10.4); Platelet Count 375 10^3/uL (130-400); Red Blood Cell Count 2.93 10^6/uL (4.70-6.10); White Blood Cell Count 10.9 10^3/uL (4.8-10.8)
--- NOTE | 2023-11-08 04:12 | PTCARENOTE ---
No acute events overnight. 1 x dose melatonin ordered by president educational institution provider for insomnia. No complaints of pain or discomfort.
[2023-11-08 04:22] LABS: Blood Urea Nitrogen 21 mg/dl (9-20); Calcium 8.9 mg/dl (8.4-10.2); Carbon Dioxide 26 mmol/L (22-30); Chloride 102 mmol/L (98-107); Estimated Creatinine Clearance 108 ml/min; Glucose 90 mg/dl (70-99); Phosphorus 3.3 mg/dl (2.5-4.5); Potassium 3.7 mmol/L (3.5-5.1); Sodium 139 mmol/L (135-145); eGFR > 60.00
[2023-11-08] MEDS: SPIRIVA RESPIMAT 2.5 MCG 2 PUFF INH (07:54)
[2023-11-08 08:01] LABS: Glucose - Point of Care 103 mg/dl (70-99)
--- NOTE | 2023-11-08 08:08 | PN.DE.MGMTRT ---
Insulin Management
- -
11/08/2023: Diabetes Management Follow up:
Patient admitted 10/14 with lower abdominal abdominal pain, N&V. PMH: PAF, HTN, COPD, BPH, former tobacco smoker T2DM and allergic rhinitis.
CT A/P-->Stercoral colitis with severe constipation s/p disimpaction in the ER, s/p ex lap with subtotal colectomy- due to severe ischemic bowel on 10/15/2023. Noted for Septic shock requiring multiple pressors, LLL Community acquired PNA and Vent
dependent respiratory failure.
Prior to admission, pt was taking Metformin 500mg BID. Current A1C 6.2%.
Pt awake, resting in bed, pleasant, offers no complaints, able to discuss diabetes mgt.
POD # 24 s/p subtotal colectomy, POD #21 s/p segmented sigmoid resection, POD # 14 washout of hematoma revision of end ileostomy, POD# 7 s/p revision of ileostomy.
Off TPN 11/04 and on estrella controlled diabetic diet. Premeal glucose <100 since dc of TPN. Fasting glucose this AM 94
11/06 glucose range 78 to 131, received no corrective insulin. Will stop lantus and continue corrective insulin only.
A1C was 6.2%, was taking Metformin prior to admission. Not ideal to resume MFM at this time.
Will follow and make adjusts if necessary
Discussed with patients nurse.
Diabetes History
- -
Type of Diabetes: 2
Pre-Admission Diabetes Regimen
11/08/23
03:34
Creatinine 0.7
Lab Results
Hemoglobin A1c 6.2 % (4.0-5.6) H 10/16/23 03:28
Insulin Pump Settings
IP Diabetes Regimen
11/07/23 11/07/23 11/07/23
09:08 13:39 16:25
Glucose
POC Glucose 79 87 75
11/07/23 11/08/23 11/08/23
21:59 03:34 07:50
Glucose 90
POC Glucose 131 H 103 H
Meal type: Dinner
Meal type: Lunch
Meal type: Breakfast
Amount consumed: 80%
Amount consumed: Patient refused
Amount consumed: 70%
Patient Education
--- NOTE | 2023-11-08 08:08 | W.PN.HOSP.TC ---
Today's Communication/Plan
-
Discharge planning Acute Rehab
ok to dc PICC
IVF support while appetite is poor
PT/OT as tolerated
glycemic control
Assessment / Plan
Assessment / Plan
Physical
General: No Apparent Distress
HEENT: Normocephalic and Atraumatic
Respiratory: Negative Wheezes
Cardiac: Regular Rhythm and S1/S2
GI: Soft ostomy+
Genito-urinary: No Costovertebral Tender
Musculoskeletal: No Edema
Neuro: AO x 3
Hematologic / Lymphatic: No Lymphadenopathy
Psych: Calm
Assessment:
Acute surgical abdomen with stercoral colitis with severe ischemic bowel
Septic shock POA resolved; off pressors, s/p stress dose steroids
- s/p disimpaction in ER
- clinically unstable emergent OR 10/14: ex lap, subtotal colectomy for mesenteric ischemia, ischemic colon
- s/p OR 10/17: exploratory laparotomy, partial colectomy (sigmoid), creation end ileostomy
- s/p OR 10/24: Exploratory laparotomy, small bowel resection, creation end ileostomy (due to necrosis at prior ostomy site)
- s/p OR 10/31: Exploratory laparotomy, revision end ileostomy
- continue Zosyn day 11 11/05 last day per ID. Micafungin added back 11/03 by ID transitioned to Fluconazole following Identification Leni tropicalis from wound cx (last day antifungal tx 11/08)
- TPN completed per GS. LRD per GS.
- continue PPI BID
Persistent Elevating Leukocytosis despite extended course IV abx as above
- Repeat CT abd/pelvis noted ascites possible cirrhosis moderate to severe subcutaneous edema. GI eval appreciated outpt follow up
- IR eval requested for diagnostic/therapeutic paracentesis however noted ascites too small as per IR review of imaging
- Ascites was noted to be old blood as seen during above repeat surgical exploration, hematoma washout performed
- ID eval appreciated
- BNP elevated, ECHO noted preserved EF 60-65% no significant change from prior ECHO 2020
- cardio eval appreciated, diuresis as per cardio likely iatrogenic fluid overload, diuresis since stopped/completed
- post-op ileus nausea hiccups, patient briefly strict NPO post procedure, symptoms subsequently improved, gradually advanced to LRD as per surgery
Acute Blood Loss Anemia following repeat procedure as above
Iron Deficiency
Anemia of Chronic disease
- total 2 PRBC transfusions with Lasix since above procedure 10/24
- IV Iron supplementation completed, transitioned to PO
Community acquired PNA, LLL
Vent dependent respiratory failure
- extubated 10/18
- wean O2 as tolerated
- Zosyn completed as per ID
JOSE from septic shock resolved
Acute metabolic acidosis resolved
A. Fib with RVR
Symptomatic exertional tachycardia
- likely driven by septic shock
- monitor rates; continue Toprol XL titrated up as per cardio
- IV Heparin drip transitioned back to Eliquis
- cardio eval appreciated
Lyme arthritis
- completed 4 week Doxycycline course
Hypernatremia resolved
Mild transaminitis
- resolved
Hx of Essential HTN
- holding JORY/HCTZ
- Lasix as per cardio
Prediabetes [correction to prior documentation]
-recent A1c consistently prediabetic <6.5
- holding Metformin
- completed critical care insulin protocol
- continue SSI
- Diabetes TOP INSTALLER following
Hx of COPD
Former tobacco use disorder with [id number] history, quit about 15 years ago
Hypokalemia
Hypophosphatemia
- monitor and replete as necessary
Urinary retention resolved
- continue Flomax
- Celaya catheter d/c
10/25 mild Testicular Ecchymosis Painless, likely superficial bruising healing
- scrotal US appreciated no acute abn's
PT/OT appreciated Acute Rehab
DVT ppx: SCDs + Eliquis
Code: DNR
discussed w maine and his Shefali
I spent a total of 50 minutes with the patient or on the floor. More than 50% of this time involved counseling and coordination of care.
Anticipated Discharge: 24 - 48 hours
Subjective/Interval History
-
Date of Service: November 08, 2023
Reports intermittent dizziness. Loss of appetite. General malaise. Denies abd pain tenderness.
Objective Data
-
Labs:
Laboratory Results
11/08/23
03:34
WBC 10.9 H
Hgb 9.0 L
Hct 27.9 L
Plt Count 375
Sodium 139
Potassium 3.7
Chloride 102
Carbon Dioxide 26
BUN 21 H
Creatinine 0.7
Glucose 90
Calcium 8.9
Vital Signs:
Vital Signs
Temp Pulse Resp BP Pulse Ox
97.9 F 80 16 134/95 96
11/08/23 03:26 11/08/23 07:55 11/08/23 07:55 11/08/23 06:00 11/08/23 07:55
I&O
11/07/23 11/08/23 11/09/23
06:59 06:59 06:59
Intake Total 835 / 835
Output Total 2320 / 2320 1150 / 1150
Balance -1485 / -1485 -1150 / -1150
[2023-11-08] MEDS: PROTONIX 40 MG PO ×2 (08:17→19:50)
[2023-11-08] MEDS: FEOSOL 325 MG PO (08:17)
[2023-11-08] MEDS: DIFLUCAN 400 MG PO (08:17)
[2023-11-08] MEDS: TOPROL XL 50 MG PO ×2 (08:17→19:50)
[2023-11-08] MEDS: ELIQUIS 5 MG PO ×2 (08:18→19:51)
[2023-11-08] MEDS: DESENEX/MITRAZOL/ZEASORB 1 APPLIC TOPICAL ×2 (08:18→19:51)
[2023-11-08] MEDS: NOVOLOG FLEXPEN-LOW RESISTANCE SC ×3 (08:19→17:46)
--- NOTE | 2023-11-08 08:56 | W.PN.ID1 ---
Date of Service
Date of Service: November 08, 2023
Today's Communication
- c tropicals from the abdominal culture
- completed course of zosyn 11/05
- switched to fluconazole to complete 5 day course 11/03-11/08
Assessment / Plan
S/p ex lap with subtotal colectomy for ischemic colitis - 10/15/23
S/p segmental sigmoid resection, end ileostomy and abd wound closure 10/18/23
S/p Exploratory laparotomy, small bowel resection, creation end ileostomy 10/25/23
S/p Ostomy revisions 10/31
reported penicillin allergy
Leukocytosis - persists today
- c tropicals from the abdominal culture
- completed course of zosyn 11/05
- switched to fluconazole to complete 5 day course 11/03-11/08
- follow up with surgery
����������������������������������������������������������
Chief Complaint
-: Leukocytosis and Other (intraabdominal infection)
Subjective / Review of Systems
afebrile
bp stable
difficulty sleeping, and took melatonin
somewhat dizzy this am now resolved, possibly orthostatic
Vital Signs / Physical Exam
Vital Signs
Vital Signs
Temp Pulse Resp BP Pulse Ox
97.8 F 81 16 147/101 96
11/08/23 08:20 11/08/23 08:17 11/08/23 07:55 11/08/23 08:17 11/08/23 07:55
Physical Exam
Constitutional: No Acute Distress and Chronically Ill
Cardiovascular: Regular Rate and S1/S2; Negative Murmur or Rub
Pulmonary: Clear and Symmetric; Negative Wheezes or Rales
Gastrointestinal: Soft, Non Tender, Non Distended and Normal Bowel Sounds
Skin: Warm and Dry; Negative Rash or Jaundice
Objective Data
Lab Data
Lab Results
11/08/23 03:34
11/08/23 03:34
PT 15.3 Sec (11.4-14.6) H 10/26/23 06:11
INR 1.20 10/26/23 06:11
APTT Cancelled 11/06/23 10:50
Estimated Creat Clear 108 ml/min 11/08/23 03:34
Lactic Acid 1.3 mmol/L (0.7-2.0) 10/25/23 05:27
Total Bilirubin 0.7 mg/dl (0.2-1.3) 10/31/23 03:54
AST 36 U/L (17-59) 10/31/23 03:54
ALT 23 U/L (0-50) 10/31/23 03:54
Alkaline Phosphatase 67 U/L (38-126) 10/31/23 03:54
Most recent labs reviewed.
Micro Results:
11/01/23 19:05 Wound Culture - Final
Abdomen Leni tropicalis
Gram Stain - Final
11/01/23 19:05 Anaerobic Culture - Final
Abdomen NO ANAEROBES ISOLATED
10/19/23 13:41 Respiratory Culture - Final
Endotracheal Yeast
Gram Stain - Final
10/15/23 05:43 Blood Culture - Final
Blood/Venous No Growth - Final Report
10/15/23 09:57 Urine Culture - Final
Urine NO GROWTH
--- NOTE | 2023-11-08 11:27 | CM ---
Patient seen at bedside with .
Discussed that CM needing to get authorization for [facility]. Had to fax clinicals.
Spoke to Lady Padilla at [facility] who stated Alicia is waiting for clinicals. Request ID [id number].
Faxed clinicals to [phone] - AWAIT INSURANCE AUTHORIZATION
PLAN: [facility], awiating insurance authorization
[2023-11-08 12:50] LABS: Glucose - Point of Care 101 mg/dl (70-99)
--- NOTE | 2023-11-08 13:48 | W.PN.CARDCBS ---
Today's Communication / Plan
-
Stable for transfer to [place].
Continue rate control strategy for A-fib with metoprolol 50 mg p.o. twice daily.
Ventricular rates are improved
Continue Eliquis. Hemoglobin stable at 9.
Impression / Plan
-
.
PCP: Dr. Herrera
Cardiology: Dr. Simms, last seen 06/29/22
Impression:
Admitted with stercoral colitis and sepsis 10/15/23
s/p s/p ex lap with subtotal colectomy in a damage control operation 10/15/23
s/p segmental sigmoid resection, end ileostomy and abd wound closure 10/18/23
s/p exploratory lap, small bowel resection, creation end ileostomy, secondary to stoma with necrotic mucosa 10/25/2023
s/p exploratory lap and revision of end ileostomy 11/01/23
post op anemia
Acute HFpEF
LLL PNA
Leukocytosis
JOSE
Hypernatremia
Hypokalemia
Elevated LFTs
Permanent Afib with RVR
DM 2
COPD
Echo 10/25/23: EF 60-65%, trace MR, aortic sclerosis without stenosis
Plan:
Patient had revision of the end of his ileostomy 11/01/23. Now back on DM diet, tolerating oral meds.
Atrial fibrillation is permanent and was previously rate controlled without AV aileen blocking agents prior to admission. Patient is new to Toprol.
Patient has been sedentary since admission. Whenever he attempts to ambulate heart rate increases into 110's-130's with activity.
Increased to Toprol to 25 mg twice a day 11/06/23. Heart rate then further titrated to 50 mg twice daily.
Eliquis added back 11/06/23 in am
Hgb 9.0. Continue to monitor H/H with resumption of OAC. Post op anemia with low Hgb of 7.1 resolved w/ 2u pRBCs this admission (1 u 10/25 & 1 u 10/26)
EF is preserved on echo this admission.
Weight overall stable and he appears euvolemic.
Weight is 25 pounds less than admission weight. Lasix d/ishan 11/05. Continue to monitor trend weight.
He had been taking HCTZ with ACEI as outpatient. HCTZ has been stopped. ACEI also held. BP stable on Toprol. Would keep off JORY-I for now and can be added back as outpatient if needed.
Continue supportive care/nutrition.
He is overall stable to be transferred to [place] rehab.
HPI: Patient came to [facility] 10/15/23 with abdominal pain and constipation and was admitted with sepsis and stercoral colitis, cardiology is now consulted for acute HF. Patient came to ER with abdominal pain and constipation and appeared to be septic.
He was started on pressors and later taken to the OR same day for a damage control operation with subtotal colectomy. He returned to the OR 10/18/23 for wound closure and end ileostomy. Patient has received 17.25 liters of IVFs since admission. He is
now allowed sips of water and is receiving TPN. Cardiology is asked to see patient for possible acute HF. His weight is overall up 10 lbs from admission despite NPO and bowel surgery. He denies edema, bloating or SOB. His pro-BNP was 3680 yesterday
and he was started on Lasix 40 mg IV daily. Patient denies chest pain. He has permanent Afib and HRs are rapid, but he denies palpitations. He was not taking a rate controlling med prior to admission, but was started on Toprol XL 50 mg BID
yesterday.
Progress Note - Perfusionist
Subjective
Date of Service: November 08, 2023
Awaiting transfer to [place]. Denies chest pain or palpitations
Objective
Labs:
11/08/23 03:34
11/08/23 03:34
Labs
Hgb 9.0 g/dL (13.0-18.0) L 11/08/23 03:34
Hct 27.9 % (39.0-52.0) L 11/08/23 03:34
Plt Count 375 10^3/uL (130-400) 11/08/23 03:34
PT 15.3 Sec (11.4-14.6) H 10/26/23 06:11
INR 1.20 10/26/23 06:11
APTT Cancelled 11/06/23 10:50
Sodium 139 mmol/L (135-145) 11/08/23 03:34
Potassium 3.7 mmol/L (3.5-5.1) 11/08/23 03:34
BUN 21 mg/dl (9-20) H 11/08/23 03:34
Creatinine 0.7 mg/dL (0.7-1.3) 11/08/23 03:34
Glucose 90 mg/dl (70-99) 11/08/23 03:34
Vital Signs and I&O:
Vital Signs
Temp Pulse Resp BP Pulse Ox
98.2 F 77 24 147/107 97
11/08/23 11:45 11/08/23 12:00 11/08/23 12:00 11/08/23 12:00 11/08/23 12:00
Vital Signs
Temp Pulse Resp BP Pulse Ox
98.2 F 77 24 147/107 97
11/08/23 11:45 11/08/23 12:00 11/08/23 12:00 11/08/23 12:00 11/08/23 12:00
Intake & Output
11/06/23 11/07/23 11/08/23 11/09/23
06:59 06:59 06:59 06:59
Intake Total 1794 / 1794 835 / 835 480 / 480
Output Total 2105 / 2105 2320 / 2320 1150 / 1150
Balance -311 / -311 -1485 / -1485 -1150 / -1150 480 / 480
Physical Exam
Physical Exam
GEN: No distress, awake, Ox3
HEENT: supple, anicteric, mmm
LUNGS: CTA, no wheezes/rales
CV: Irreg, S1/S2, 1/6 syst LSB, no gallop
ABD: soft, BS+, incis tenderness
EXT: No edema
NEURO: Gross non-focal
SKIN: No rash
--- NOTE | 2023-11-08 14:31 | PTCARENOTE ---
Patient c/o of dizziness this morning with turning of his head and with movement of position. Vitals stable except diastolic BP high. TT to and cardiology. Order for IVF. Pt reports it is slightly better now. Assessment, care and VS as
charted.
[2023-11-08] MEDS: NSS 1000 IV (14:40)
[2023-11-08] MEDS: FLOMAX 0.4 MG PO (17:43)
[2023-11-08 17:56] LABS: Glucose - Point of Care 143 mg/dl (70-99)
[2023-11-08 22:29] LABS: Glucose - Point of Care 121 mg/dl (70-99)
[2023-11-09] VITALS (16 sets, daily range): BP systolic 133–169; BP diastolic 88–114; PULSE 95–152; O2SAT 96; BMI 25.5
[2023-11-09] MEDS: NSS 1000 IV (04:20)
[2023-11-09 04:41] LABS: Hematocrit 30.4 % (39.0-52.0); Hemoglobin 9.9 g/dL (13.0-18.0); Mean Corp Hgb Conc. 32.6 g/dL (33.0-37.0); Mean Corpuscular Volume 95.3 fL (80.0-94.0); Mean Platelet Volume 9.5 fL (7.4-10.4); Platelet Count 414 10^3/uL (130-400); Red Blood Cell Count 3.19 10^6/uL (4.70-6.10); Red Cell Dist. Width 14.8 % (11.5-14.5); White Blood Cell Count 11.7 10^3/uL (4.8-10.8)
[2023-11-09 05:04] LABS: Blood Urea Nitrogen 19 mg/dl (9-20); Calcium 8.7 mg/dl (8.4-10.2); Carbon Dioxide 21 mmol/L (22-30); Chloride 105 mmol/L (98-107); Estimated Creatinine Clearance 108 ml/min; Glucose 109 mg/dl (70-99); Magnesium 1.8 mg/dl (1.6-2.3); Phosphorus 3.3 mg/dl (2.5-4.5); Sodium 139 mmol/L (135-145); eGFR > 60.00
[2023-11-09] MEDS: NOVOLOG FLEXPEN-LOW RESISTANCE SC (07:27)
[2023-11-09 07:28] LABS: Glucose - Point of Care 122 mg/dl (70-99)
--- NOTE | 2023-11-09 07:32 | W.PN.HOSP.TC ---
Today's Communication/Plan
-
Discharge planning Acute Rehab
increased Metoprolol XL 100 mg BID
abx antifungal as per ID
Assessment / Plan
Assessment / Plan
Physical
General: No Apparent Distress
HEENT: Normocephalic and Atraumatic
Respiratory: Negative Wheezes
Cardiac: Regular Rhythm and S1/S2
GI: Soft ostomy+
Genito-urinary: No Costovertebral Tender
Musculoskeletal: No Edema
Neuro: AO x 3
Hematologic / Lymphatic: No Lymphadenopathy
Psych: Calm
Assessment:
Acute surgical abdomen with stercoral colitis with severe ischemic bowel
Septic shock POA resolved; off pressors, s/p stress dose steroids
- s/p disimpaction in ER
- clinically unstable emergent OR 10/14: ex lap, subtotal colectomy for mesenteric ischemia, ischemic colon
- s/p OR 10/17: exploratory laparotomy, partial colectomy (sigmoid), creation end ileostomy
- s/p OR 10/24: Exploratory laparotomy, small bowel resection, creation end ileostomy (due to necrosis at prior ostomy site)
- s/p OR 10/31: Exploratory laparotomy, revision end ileostomy
- continue Zosyn day 11 11/05 last day per ID. Micafungin added back 11/03 by ID transitioned to Fluconazole following Identification Leni tropicalis from wound cx Augmentin started
- TPN completed per GS. LRD per GS.
- continue PPI BID
Persistent Elevating Leukocytosis despite extended course IV abx as above
- Repeat CT abd/pelvis noted ascites possible cirrhosis moderate to severe subcutaneous edema. GI eval appreciated outpt follow up
- IR eval requested for diagnostic/therapeutic paracentesis however noted ascites too small as per IR review of imaging
- Ascites was noted to be old blood as seen during above repeat surgical exploration, hematoma washout performed
- ID eval appreciated
- BNP elevated, ECHO noted preserved EF 60-65% no significant change from prior ECHO 2020
- cardio eval appreciated, diuresis as per cardio likely iatrogenic fluid overload, diuresis since stopped/completed
- post-op ileus nausea hiccups, patient briefly strict NPO post procedure, symptoms subsequently improved, gradually advanced to LRD as per surgery
Acute Blood Loss Anemia following repeat procedure as above
Iron Deficiency
Anemia of Chronic disease
- total 2 PRBC transfusions with Lasix since above procedure 10/24
- IV Iron supplementation completed, transitioned to PO
Community acquired PNA, LLL
Vent dependent respiratory failure
- extubated 10/18
- wean O2 as tolerated
- Zosyn completed as per ID
JOSE from septic shock resolved
Acute metabolic acidosis resolved
A. Fib with RVR
Symptomatic exertional tachycardia
- likely driven by septic shock
- monitor rates; continue Toprol XL titrated up to 100 mg BID
- IV Heparin drip transitioned back to Eliquis
- cardio eval appreciated
Lyme arthritis
- completed 4 week Doxycycline course
Hypernatremia resolved
Mild transaminitis
- resolved
Hx of Essential HTN
- holding JORY/HCTZ
- Lasix as per cardio
Prediabetes [correction to prior documentation]
-recent A1c consistently prediabetic <6.5
- holding Metformin
- completed critical care insulin protocol
- continue SSI
- Diabetes QUALITY ASSURANCE ENGINEER following
Hx of COPD
Former tobacco use disorder with [id number] history, quit about 15 years ago
Hypokalemia
Hypophosphatemia
- monitor and replete as necessary
Urinary retention resolved
- continue Flomax
- Celaya catheter d/c
10/25 mild Testicular Ecchymosis Painless, likely superficial bruising healing
- scrotal US appreciated no acute abn's
PT/OT appreciated Acute Rehab
DVT ppx: SCDs + Eliquis
Code: DNR
discussed w pt and his Shefali
I spent a total of 40 minutes with the patient or on the floor. More than 50% of this time involved counseling and coordination of care.
Anticipated Discharge: 24 - 48 hours
Subjective/Interval History
-
Date of Service: November 09, 2023
Objective Data
-
Labs:
Laboratory Results
11/09/23
04:01
WBC 11.7 H
Hgb 9.9 L
Hct 30.4 L
Plt Count 414 H
Sodium 139
Potassium 4.0
Chloride 105
Carbon Dioxide 21 L
BUN 19
Creatinine 0.7
Glucose 109 H
Calcium 8.7
Vital Signs:
Vital Signs
Temp Pulse Resp BP Pulse Ox
98.4 F 77 19 162/96 97
11/09/23 04:36 11/09/23 06:00 11/09/23 06:00 11/09/23 06:00 11/09/23 06:00
I&O
11/08/23 11/09/23 11/10/23
06:59 06:59 06:59
Intake Total 2079 / 2079
Output Total 1150 / 1150 1600 / 1600
Balance -1150 / -1150 480 / 480
[2023-11-09] MEDS: SPIRIVA RESPIMAT 2.5 MCG 2 PUFF INH (07:37)
[2023-11-09] MEDS: FEOSOL 325 MG PO (08:13)
[2023-11-09] MEDS: TOPROL XL 50 MG PO ×2 (08:13→11:30)
[2023-11-09] MEDS: ELIQUIS 5 MG PO ×2 (08:13→21:32)
[2023-11-09] MEDS: PROTONIX 40 MG PO ×2 (08:13→21:32)
[2023-11-09] MEDS: DESENEX/MITRAZOL/ZEASORB 1 APPLIC TOPICAL ×2 (08:13→21:32)
--- NOTE | 2023-11-09 08:42 | PN.DE.MGMTRT ---
Insulin Management
- -
11/09/2023: Diabetes Management Follow up:
Patient admitted 10/14 with lower abdominal abdominal pain, N&V. PMH: PAF, HTN, COPD, BPH, former tobacco smoker T2DM and allergic rhinitis.
CT A/P-->Stercoral colitis with severe constipation s/p disimpaction in the ER, s/p ex lap with subtotal colectomy- due to severe ischemic bowel on 10/15/2023. Noted for Septic shock requiring multiple pressors, LLL Community acquired PNA and Vent
dependent respiratory failure.
Prior to admission, pt was taking Metformin 500mg BID. Current A1C 6.2%.
Pt awake, resting in bed, pleasant, offers no complaints, able to discuss diabetes mgt.
POD # 25 s/p subtotal colectomy, POD #22 s/p segmented sigmoid resection, POD # 15 washout of hematoma revision of end ileostomy, POD# 8 s/p revision of ileostomy.
Off TPN 9 and on estrella controlled diabetic diet. Premeal glucose <100 since dc of TPN. Fasting glucose this AM 94
11/07 Lantus stopped, glucose range 90 to 143, received no corrective insulin. Will continue corrective insulin only.
A1C was 6.2%, was taking Metformin prior to admission. Not ideal to resume MFM at this time.
Will follow and make adjusts if necessary
Discussed with patients nurse.
Diabetes History
- -
Type of Diabetes: 2
Pre-Admission Diabetes Regimen
11/09/23
04:01
Creatinine 0.7
Lab Results
Hemoglobin A1c 6.2 % (4.0-5.6) H 10/16/23 03:28
Insulin Pump Settings
IP Diabetes Regimen
11/08/23 11/08/23 11/08/23
12:39 17:45 22:18
Glucose
POC Glucose 101 H 143 H 121 H
11/09/23 11/09/23
04:01 07:17
Glucose 109 H
POC Glucose 122 H
Meal type: Dinner
Meal type: Lunch
Meal type: Breakfast
Amount consumed: 50%
Amount consumed: Patient refused
Amount consumed: 10%
Patient Education
--- NOTE | 2023-11-09 08:47 | W.PN.ID1 ---
Addendum entered and electronically signed by Alanis Epstein MD 11/09/23 14:41:
moderately elevated inflammatory markers persist
plan 5 more days of augmentin and fluconazole
remains stable for dc
Original Note:
Date of Service
Date of Service: November 09, 2023
Today's Communication
await esr and crp
Assessment / Plan
S/p ex lap with subtotal colectomy for ischemic colitis - 10/15/23
S/p segmental sigmoid resection, end ileostomy and abd wound closure 10/18/23
S/p Exploratory laparotomy, small bowel resection, creation end ileostomy 10/25/23
S/p Ostomy revisions 10/31
reported penicillin allergy
Leukocytosis - persists today
- persistent leukocytosis, new thrombocytosis
- obtain ESR and CRP
- c tropicals from the abdominal culture
- completed course of zosyn 11/05
- switched to fluconazole to complete 5 day course 11/03-11/08
- stable for trasnfer to [facility]
����������������������������������������������������������
Chief Complaint
-: Leukocytosis and Other (intraabdominal infection)
Subjective / Review of Systems
afebrile
looking forward to discharge
Vital Signs / Physical Exam
Vital Signs
Vital Signs
Temp Pulse Resp BP Pulse Ox
98.2 F 104 14 167/112 97
11/09/23 07:41 11/09/23 08:13 11/09/23 07:39 11/09/23 08:13 11/09/23 07:39
Physical Exam
Constitutional: No Acute Distress
Cardiovascular: Regular Rate and S1/S2; Negative Murmur or Rub
Pulmonary: Clear and Symmetric; Negative Wheezes or Rales
Gastrointestinal: Soft, Non Tender, Non Distended and Normal Bowel Sounds
Skin: Warm and Dry; Negative Rash or Jaundice
Objective Data
Lab Data
Lab Results
11/09/23 04:01
11/09/23 04:01
PT 15.3 Sec (11.4-14.6) H 10/26/23 06:11
INR 1.20 10/26/23 06:11
APTT Cancelled 11/06/23 10:50
Estimated Creat Clear 108 ml/min 11/09/23 04:01
Lactic Acid 1.3 mmol/L (0.7-2.0) 10/25/23 05:27
Total Bilirubin 0.7 mg/dl (0.2-1.3) 10/31/23 03:54
AST 36 U/L (17-59) 10/31/23 03:54
ALT 23 U/L (0-50) 10/31/23 03:54
Alkaline Phosphatase 67 U/L (38-126) 10/31/23 03:54
Most recent labs reviewed.
Micro Results:
11/01/23 19:05 Wound Culture - Final
Abdomen Leni tropicalis
Gram Stain - Final
11/01/23 19:05 Anaerobic Culture - Final
Abdomen NO ANAEROBES ISOLATED
10/19/23 13:41 Respiratory Culture - Final
Endotracheal Yeast
Gram Stain - Final
10/15/23 05:43 Blood Culture - Final
Blood/Venous No Growth - Final Report
10/15/23 09:57 Urine Culture - Final
Urine NO GROWTH
--- NOTE | 2023-11-09 10:05 | W.PN.CARDCBS ---
Addendum entered and electronically signed by Erick Estrada MD 11/09/23 11:20:
73-year-old man admitted October 14 with stercoral colitis and sepsis to require laparotomy and subtotal colectomy with ileostomy and repeat exploratory laparotomy x 3 most recently 10/31, with postop course complicated by acute HFpEF and rapid
ventricular response to permanent atrial fibrillation, now awaiting transfer to [facility]
PMH/PSH/SH/FH: Reviewed
Allergies penicillins
Current medications: Tamsulosin, pantoprazole, Spiriva, iron, apixaban, metoprolol ER 50 twice daily and insulin as needed
167/112, low blood pressure 131/94, pulse 24, intake and output +0.5 L lying comfortably in bed, resting heart rate low 80s but when moved in chair goes to 100
Head neck exam unremarkable lungs are clear, regular rate and rhythm, no obvious murmurs, JVD okay, abdomen benign extremities without much edema neuro nonfocal
White count 11.7, hemoglobin 9.9, BUN/creatinine 19 and 0.7 CO2 21, potassium 4
Impression:
Admitted with stercoral colitis and sepsis 10/15/23
s/p s/p ex lap with subtotal colectomy in a damage control operation 10/15/23
s/p segmental sigmoid resection, end ileostomy and abd wound closure 10/18/23
s/p exploratory lap, small bowel resection, creation end ileostomy, secondary to stoma with necrotic mucosa 10/25/2023
s/p exploratory lap and revision of end ileostomy 11/01/23
post op anemia
Acute HFpEF
LLL PNA
Leukocytosis
JOSE
Hypernatremia
Hypokalemia
Elevated LFTs
Permanent Afib with RVR
DM 2
COPD
Plan:
Overall improving, but still tachycardic. Metoprolol to be increased, either 75 twice daily or 100 mg twice daily. I favor the latter.
From my standpoint could be transferred to [facility]. Continue to follow heart rate and titrate beta-shahrzad as necessary.
Original Note:
Today's Communication / Plan
-
Increase Toprol XL to 75 mg BID including an extra 25 mg dose now
Cont Eliquis
Impression / Plan
-
.
PCP: Dr. Herrera
Cardiology: Dr. Simms, last seen 06/29/22
Impression:
Admitted with stercoral colitis and sepsis 10/15/23
s/p s/p ex lap with subtotal colectomy in a damage control operation 10/15/23
s/p segmental sigmoid resection, end ileostomy and abd wound closure 10/18/23
s/p exploratory lap, small bowel resection, creation end ileostomy, secondary to stoma with necrotic mucosa 10/25/2023
s/p exploratory lap and revision of end ileostomy 11/01/23
post op anemia
Acute HFpEF
LLL PNA
Leukocytosis
JOSE
Hypernatremia
Hypokalemia
Elevated LFTs
Permanent Afib with RVR
DM 2
COPD
Echo 10/25/23: EF 60-65%, trace MR, aortic sclerosis without stenosis
Plan:
-Patient with known permanent Afib. Prior to admission patient did not require any meds for rate control. During this admission his HRs have been faster likely due to surgery, infection and deconditioning. Toprol XL 50 mg BID added this admission.
HRs at rest at 90-115. HRs with activity are up to 150 at times. Realistically patient will continue to have higher HRs while going through rehab, he is generally asymptomatic with higher HRs.
-Patient with intermittent dizziness that happens while in bed and sometimes while turning his head. Dizziness reprotedly improved with IVFs on 11/08/23, but he was not hypotensive so mechanism not clear.
-Recorded BPs remain elevated, will try increasing Toprol XL to 75 mg BID which should also help with HR control.
-Weight is stable at 193 lbs on 11/09/23. Patient previously diuresed with Lasix IV and then maintained on Lasix PO earlier this admission. Patient was taking HCTZ 25 mg daily as part of lisinopril/HCTZ combo pill prior to admission, but HCTZ now
stopped. JORY has not been restarted.
-Recommend daily weights at [facility].
-EF preserved on echo.
-Eliquis 5 mg BID (age 73, Cre 0.7, wt 87.8 kg) restarted 11/06/23. Patient was bridged on and off with Heparin gtt earlier this admission
-Patient received a total of 2 units PRBCs this admission.
-Patient is stable for transfer to [facility] rehab with the understanding that he has permanent Afib with HRs that are faster in the setting of deconditioning. Increasing Toprol XL dose to help with increased HRs and also watching for symptoms of
recurrent dizziness.
HPI: Patient came to [facility] 10[facility]23 with abdominal pain and constipation and was admitted with sepsis and stercoral colitis, cardiology is now consulted for acute HF. Patient came to ER with abdominal pain and constipation and appeared to be septic.
He was started on pressors and later taken to the OR same day for a damage control operation with subtotal colectomy. He returned to the OR 10/18/23 for wound closure and end ileostomy. Patient has received 17.25 liters of IVFs since admission. He is
now allowed sips of water and is receiving TPN. Cardiology is asked to see patient for possible acute HF. His weight is overall up 10 lbs from admission despite NPO and bowel surgery. He denies edema, bloating or SOB. His pro-BNP was 3680 yesterday
and he was started on Lasix 40 mg IV daily. Patient denies chest pain. He has permanent Afib and HRs are rapid, but he denies palpitations. He was not taking a rate controlling med prior to admission, but was started on Toprol XL 50 mg BID
yesterday.
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
Subjective
Date of Service: November 09, 2023
He feels well and wants to go to [facility] today if possible
Objective
Labs:
11/09/23 04:01
11/09/23 04:01
Labs
Hgb 9.9 g/dL (13.0-18.0) L 11/09/23 04:01
Hct 30.4 % (39.0-52.0) L 11/09/23 04:01
Plt Count 414 10^3/uL (130-400) H 11/09/23 04:01
PT 15.3 Sec (11.4-14.6) H 10/26/23 06:11
INR 1.20 10/26/23 06:11
APTT Cancelled 11/06/23 10:50
Sodium 139 mmol/L (135-145) 11/09/23 04:01
Potassium 4.0 mmol/L (3.5-5.1) 11/09/23 04:01
BUN 19 mg/dl (9-20) 11/09/23 04:01
Creatinine 0.7 mg/dL (0.7-1.3) 11/09/23 04:01
Glucose 109 mg/dl (70-99) H 11/09/23 04:01
Vital Signs and I&O:
Vital Signs
Temp Pulse Resp BP Pulse Ox
98.2 F 104 14 167/112 97
11/09/23 07:41 11/09/23 08:13 11/09/23 07:39 11/09/23 08:13 11/09/23 07:39
Vital Signs
Temp Pulse Resp BP Pulse Ox
98.2 F 104 14 167/112 97
11/09/23 07:41 11/09/23 08:13 11/09/23 07:39 11/09/23 08:13 11/09/23 07:39
Intake & Output
11/07/23 11/08/23 11/09/23 11/10/23
06:59 06:59 06:59 06:59
Intake Total 835 / 835 208 / 2079
Output Total 2320 / 2320 1150 / 1150 1600 / 1600
Balance -1485 / -1485 -1150 / -1150 480 / 480
Physical Exam
Physical Exam
GEN: AAOx3
HEENT: MMM
LUNGS: No audible wheeze
CV: Afib on tele
ABD: ND
EXT: No edema B/L
NEURO: Gross non-focal
SKIN: No rash
--- NOTE | 2023-11-09 11:07 | PTCARENOTE ---
Assumed care of patient this morning. Pt was in a good mood and smiled at RN upon first encounter. Patient denies any dizziness today. He also denies any pain or nausea. Pt's ileostomy with output of liquid stool. Midline incision dressing CDI. Pt
did get up to chair with PT. HR still elevated with exertion therefore only able to move to chair per PT. Cardiology aware and increased his Metoprolol again. Pt did eat a bowl of cheerios for breakfast. Pt has no complaints and would like to go to
rehab. Assessment, care and VS as charted.
[2023-11-09 11:22] LABS: Glucose - Point of Care 155 mg/dl (70-99)
[2023-11-09] MEDS: NOVOLOG FLEXPEN-LOW RESISTANCE 1 UNITS SC ×2 (11:30→16:41)
[2023-11-09 11:45] LABS: Erythrocyte Sed Rate 53 mm/hour (0-20)
--- NOTE | 2023-11-09 15:56 | CM ---
Patient who is s/p ex lap, subtotal colectomy 10/14, s/p ex lap, partial colectomy, creation end ileostomy 10/17, s/p ex lap, sm bowel resection, creation end ileostomy, s/p Ex lap, SBR, creation end ileostomy for ischemic stoma 10/24, Exploratory
laparotomy, revision end ileostomy 10/31. Room air. Diabetic diet. PT & OT recommend acute rehab. Seen by ostomy nurse.
Message provided by Angela ALEGRIA: message from Meaghan Vargas; request for [facility] is approved, through 11/14. NR 11/15 to [phone], fax [phone]. Auth # [id number].
Auth info provided to [facility]. They are hoping to be able to accept the patient tomorrow if heart rate is ok.
Spoke with Shefali; informed her that [facility] was approved by patient's insurance, and patient may possibly be accepted by [facility] tomorrow. She plans on coming in this evening and will update her .
Plan [facility] probably tomorrow.
[2023-11-09] MEDS: DIFLUCAN 400 MG PO (16:38)
[2023-11-09] MEDS: FLOMAX 0.4 MG PO (16:38)
[2023-11-09 16:51] LABS: Glucose - Point of Care 171 mg/dl (70-99)
[2023-11-09] MEDS: TOPROL XL 100 MG PO (21:32)
[2023-11-09] MEDS: MELATONIN 3 MG PO (21:32)
[2023-11-09] MEDS: AUGMENTIN 875 MG/125 MG 1 TABLET PO (21:32)
[2023-11-09 23:01] LABS: Glucose - Point of Care 157 mg/dl (70-99)
[2023-11-10] VITALS: BP 159/107
[2023-11-10 02:00] VITALS: BP 139/93
[2023-11-10 04:00] VITALS: BP 136/90
[2023-11-10 05:05] VITALS: BMI 25.5
[2023-11-10 06:00] VITALS: BP 149/94
--- NOTE | 2023-11-10 06:30 | PTCARENOTE ---
No acute changes overnight. Pt fatigued. requested melatonin for sleep. Ileostomy with stool output; refer to worklist. voiding clear yellow urine via condom cath. Abd dressing CDI. denies any pain, denies nausea. tele showing afib, HR 60-80s. RA,
encourage deep breathing. Reminded pt to repositin self in bed to prevent skin breakdown. refused scds. call sera and Marcella within reach.
[2023-11-10] MEDS: SPIRIVA RESPIMAT 2.5 MCG 2 PUFF INH (07:15)
--- NOTE | 2023-11-10 07:32 | PN.DE.MGMTRT ---
Insulin Management
- -
11/10/2023: Diabetes Management F/U:
Patient admitted 10/14 with lower abdominal abdominal pain, N&V. PMH: PAF, HTN, COPD, BPH, former tobacco smoker T2DM and allergic rhinitis.
CT A/P-->Stercoral colitis with severe constipation s/p disimpaction in the ER, s/p ex lap with subtotal colectomy- due to severe ischemic bowel on 10/15/2023. Noted for Septic shock requiring multiple pressors, LLL Community acquired PNA and Vent
dependent respiratory failure.
Prior to admission, pt was taking Metformin 500mg BID. Current A1C 6.2%.
Pt awake, resting in bed, pleasant, offers no complaints, able to discuss diabetes mgt.
POD # 26 s/p subtotal colectomy, POD #23 s/p segmented sigmoid resection, POD # 16 washout of hematoma revision of end ileostomy, POD# 9 s/p revision of ileostomy.
Off TPN 11/04 and on estrella controlled diabetic diet. 18 Lantus stopped.
11/08 glucose range 122 to 171, received 1 units of corrective insulin.
Pt seems to be tolerating diet with appetite improving and eating more each day.
Will resume his outpatient diabetes regimen. start Metformin 500mg BID, 1st dose now. Continue low corrective insulin with meals
Will follow and make adjusts if necessary
Discussed with Pt and pt's Nurse.
Diabetes History
- -
Type of Diabetes: 2
Pre-Admission Diabetes Regimen
Lab Results
Hemoglobin A1c 6.2 % (4.0-5.6) H 10/16/23 03:28
Insulin Pump Settings
IP Diabetes Regimen
11/09/23 11/09/23 11/09/23
11:11 16:40 22:50
POC Glucose 155 H 171 H 157 H
Meal type: Lunch
Meal type: Breakfast
Amount consumed: 45%
Amount consumed: 100%
Patient Education
--- NOTE | 2023-11-10 07:33 | W.PN.HOSP.TC ---
Today's Communication/Plan
-
discharge
Assessment / Plan
Assessment / Plan
Physical
General: No Apparent Distress
HEENT: Normocephalic and Atraumatic
Respiratory: Negative Wheezes
Cardiac: Regular Rhythm and S1/S2
GI: Soft ostomy+
Genito-urinary: No Costovertebral Tender
Musculoskeletal: No Edema
Neuro: AO x 3
Hematologic / Lymphatic: No Lymphadenopathy
Psych: Calm
Assessment:
Acute surgical abdomen with stercoral colitis with severe ischemic bowel
Septic shock POA resolved; off pressors, s/p stress dose steroids
- s/p disimpaction in ER
- clinically unstable emergent OR 10/14: ex lap, subtotal colectomy for mesenteric ischemia, ischemic colon
- s/p OR 10/17: exploratory laparotomy, partial colectomy (sigmoid), creation end ileostomy
- s/p OR 10/24: Exploratory laparotomy, small bowel resection, creation end ileostomy (due to necrosis at prior ostomy site)
- s/p OR 10/31: Exploratory laparotomy, revision end ileostomy
- continue Zosyn day 11 11/05 last day per ID. Micafungin added back 11/03 by ID transitioned to Fluconazole following Identification Leni tropicalis from wound cx Augmentin started
- TPN completed per GS. LRD per GS.
- continue PPI BID
Persistent Elevating Leukocytosis despite extended course IV abx as above
- Repeat CT abd/pelvis noted ascites possible cirrhosis moderate to severe subcutaneous edema. GI eval appreciated outpt follow up
- IR eval requested for diagnostic/therapeutic paracentesis however noted ascites too small as per IR review of imaging
- Ascites was noted to be old blood as seen during above repeat surgical exploration, hematoma washout performed
- ID eval appreciated
- BNP elevated, ECHO noted preserved EF 60-65% no significant change from prior ECHO 2020
- cardio eval appreciated, diuresis as per cardio likely iatrogenic fluid overload, diuresis since stopped/completed
- post-op ileus nausea hiccups, patient briefly strict NPO post procedure, symptoms subsequently improved, gradually advanced to LRD as per surgery
Acute Blood Loss Anemia following repeat procedure as above
Iron Deficiency
Anemia of Chronic disease
- total 2 PRBC transfusions with Lasix since above procedure 10/24
- IV Iron supplementation completed, transitioned to PO
Community acquired PNA, LLL
Vent dependent respiratory failure
- extubated 10/18
- wean O2 as tolerated
- Zosyn completed as per ID
JOSE from septic shock resolved
Acute metabolic acidosis resolved
A. Fib with RVR
Symptomatic exertional tachycardia
- likely driven by septic shock
- monitor rates; continue Toprol XL titrated up to 100 mg BID
- IV Heparin drip transitioned back to Eliquis
- cardio eval appreciated
-Heart rate since improved. Medically stable for discharge Acute Rehab with outpatient follow up recommendations.
Lyme arthritis
- completed 4 week Doxycycline course
Hypernatremia resolved
Mild transaminitis
- resolved
Hx of Essential HTN
- holding JORY/HCTZ
- Lasix as per cardio since completed
Prediabetes [correction to prior documentation]
-recent A1c consistently prediabetic <6.5
- completed critical care insulin protocol
- sugars consistently at goal requiring minimal insulin correction if at all
-ok to discontinue routine sliding scale fingersticks.
- Diabetes HIDE CLEANER eval appreciated
-Would discontinue Metformin at this time given persistently prediabetic, sugars consistently at goal, mildly overweight given BMI but also has lost significant amount of weight since hospitalization, can consider restarting medication later on but
at this time appears to be unnecessary
- Give recent blood transfusions October 2023, would not repeat A1c until Jan 2024 as recent transfusions will likely lead to false values.
Hx of COPD
Former tobacco use disorder with [id number] history, quit about 15 years ago
Hypokalemia
Hypophosphatemia
- monitor and replete as necessary
Urinary retention resolved
- continue Flomax
- Celaya catheter d/c passed trial of void
10/25 mild Testicular Ecchymosis Painless, likely superficial bruising healing
- scrotal US appreciated no acute abn's
PT/OT appreciated Acute Rehab
DVT ppx: SCDs + Eliquis
Code: DNR
Medically stable for discharge Acute Rehab with outpatient follow up recommendations.
Total Time Preparing Discharge ___50____ minutes including examination of the patient, summary of the hospital stay, instructions for continuing care to all relevant caregivers; and preparation of discharge records, prescriptions, and referral
forms if necessary.
Anticipated Discharge: Today
Subjective/Interval History
-
Date of Service: November 10, 2023
Seen and examined at bedside in no acute distress sitting up comfortably in chair. Patient overall reports feeling well. Looking forward to Acute Rehab.
Objective Data
-
Vital Signs:
Vital Signs
Temp Pulse Resp BP Pulse Ox
97.6 F 95 20 149/94 97
11/10/23 05:05 11/10/23 07:16 11/10/23 07:16 11/10/23 06:00 11/10/23 07:16
I&O
11/09/23 11/10/23 11/11/23
06:59 06:59 06:59
Intake Total 0 / 0 750 / 750
Output Total 1600 / 1600 975 / 975
Balance 480 / 480 -225 / -225
[2023-11-10] MEDS: NOVOLOG FLEXPEN-LOW RESISTANCE SC (07:59)
[2023-11-10 08:10] LABS: Glucose - Point of Care 133 mg/dl (70-99)
[2023-11-10] MEDS: ELIQUIS 5 MG PO (08:47)
[2023-11-10] MEDS: TOPROL XL 100 MG PO (08:47)
[2023-11-10] MEDS: AUGMENTIN 875 MG/125 MG 1 TABLET PO (08:48)
[2023-11-10] MEDS: FEOSOL 325 MG PO (08:48)
[2023-11-10] MEDS: PROTONIX 40 MG PO (08:48)
[2023-11-10] MEDS: DIFLUCAN 400 MG PO (08:48)
[2023-11-10] MEDS: DESENEX/MITRAZOL/ZEASORB 1 APPLIC TOPICAL (08:48)
[2023-11-10] MEDS: GLUCOPHAGE 500 MG PO (08:54)
[2023-11-10 08:57] VITALS: BP 133/92; BP 134/92; BP 142/90; PULSE 76; PULSE 83; O2SAT 97
--- NOTE | 2023-11-10 11:07 | W.PN.GS2 ---
Today's Communication / Plan
-
dispo planning
Assessment / Plan
-
73 yo male with h/o of AFIB on Eliquis presenting with abdominal pain with fecal impaction on initial CT, disimpacted in ED but without relief in pain. Taken to the OR emergently on 10/15 as he clinically deteriorated with increasing abdominal pain
with ischemic colon noted.
10/15/23 ex lap with subtotal colectomy in a damage control operation, abdomen left open with AbdThera vac
10/18/23 segmental sigmoid resection, end ileostomy and abd wound closure
10/25/23 ex lap, washout hematoma; revision of end ileostomy for ischemia
11/01/23 ex lap, exploratory laparotomy, revision end ileostomy for ischemia (CX from OR with +shane)
AFVSS
Stoma functioning with pink mucosa
Plan:
--Diabetic diet, supplement shakes
--Continue PPI
--Continue Augmentin and fluconazole: ID on board
--Diabetes MOTORCYCLE FABRICATOR to continue managing diabetes, input appreciated
--Analgesics/antiemetics as needed
--PO therapeutic anticoagulation
--OOB/ambulate as tolerated, PT/OT following
--SCD's while in bed
Clear for d/c from surgical standpoint. Will need outpatient follow up with surgery to have jabari removed in 1-2 weeks
Subjective Data
-
Date of Service: November 10, 2023
Patient seen and examined at bedside. No acute complaints. Eager for discharge. Denies n/v or pain
Objective Data
-
Intake and Output
11/09/23 11/10/23 11/11/23
06:59 06:59 06:59
Intake Total 2079 / 2079 750 / 750
Output Total 1600 / 1600 975 / 975
Balance 480 / 480 -225 / -225
Intake:
Oral fluids 960 / 960 540 / 540
IV fluids (Total) 1120 / 1120 210 / 210
Output:
Liquid stool amount 400 / 400 200 / 200
Ileostomy 400 / 400 200 / 200
Urine, Voided 1200 / 1200 775 / 775
Vital Signs
Temp Pulse Resp BP Pulse Ox
97.7 F 85 20 134/92 97
11/10/23 07:10 11/10/23 08:47 11/10/23 07:16 11/10/23 08:47 11/10/23 11:01
Lab Results
11/09/23 04:01
11/09/23 04:01
Calcium 8.7 mg/dl (8.4-10.2) 11/09/23 04:01
Phosphorus 3.3 mg/dl (2.5-4.5) 11/09/23 04:01
Magnesium 1.8 mg/dl (1.6-2.3) 11/09/23 04:01
Total Bilirubin 0.7 mg/dl (0.2-1.3) 10/31/23 03:54
Direct Bilirubin 0.2 mg/dl (0.0-0.4) 10/26/23 06:11
AST 36 U/L (17-59) 10/31/23 03:54
ALT 23 U/L (0-50) 10/31/23 03:54
Alkaline Phosphatase 67 U/L (38-126) 10/31/23 03:54
Total Protein 5.1 g/dl (6.3-8.2) L 10/31/23 03:54
Albumin 2.5 g/dl (3.5-5.0) L 10/31/23 03:54
Physical Exam
-
Gen: NAD
Abd: soft, NT/ND, non-peritoneal, midline c/d/i - no erythema, ecchymosis or drainage, jabari in place, ostomy PPV - brown stool in appliance/flatus
[2023-11-10 11:23] VITALS: BP 142/94; BP 148/97; PULSE 76
--- NOTE | 2023-11-10 11:40 | CM ---
Patient who is s/p ex lap, subtotal colectomy 10/14, s/p ex lap, partial colectomy, creation end ileostomy 10/17, s/p ex lap, sm bowel resection, creation end ileostomy, s/p Ex lap, SBR, creation end ileostomy for ischemic stoma 10/24, Exploratory
laparotomy, revision end ileostomy 10/31. Room air. Diabetic diet. PT & OT recommend acute rehab. Seen by ostomy nurse.
Spoke with Bandar PT; he tolerated PT better HR 135 with exertion and asymptomatic.
Information relayed to Rigoberto @ [facility] & Dr Christy.
Spoke with [facility]; they are able to accept the patient today.
Insurance auth info provided yesterday- see notes.
The for report [phone], fax [phone].
Met with patient and Shefali; both agree to d/c today to [facility]. IMM completed.
Plan [facility] today.
--- NOTE | 2023-11-10 11:49 | PTCARENOTE ---
Pt walked from bed the chair. Had some minor dizziness at its worst. AFib on tele, HR maintaining around 109, peaked at 126, asymptomatic. Breath sounds clear throughout. Appetite is improving. Ileostomy is red and budded putting out light brown
stool. Pt urinating without difficulty. Midline ABD incision intact with some mild drainage, cleaned site and changed dressing.
--- NOTE | 2023-11-10 13:00 | W.PN.CARDCBS ---
Today's Communication / Plan
-
Okay to transfer to [facility]
Recommended cardiac meds:
Apixaban 5 mg twice daily
Metoprolol ER 100 mg twice daily
Lisinopril/HCT 10/12.5 mg daily
BMP in 5 to 7 days
Impression / Plan
-
.
PCP: Dr. Herrera
Cardiology: Dr. Simms, last seen 06/29/22
Impression:
Admitted with stercoral colitis and sepsis 10/15/23
s/p s/p ex lap with subtotal colectomy in a damage control operation 10/15/23
s/p segmental sigmoid resection, end ileostomy and abd wound closure 10/18/23
s/p exploratory lap, small bowel resection, creation end ileostomy, secondary to stoma with necrotic mucosa 10/25/2023
s/p exploratory lap and revision of end ileostomy 11/01/23
post op anemia
Acute HFpEF
LLL PNA
Leukocytosis
JOSE
Hypernatremia
Hypokalemia
Elevated LFTs
Permanent Afib with RVR
DM 2
COPD
Echo 10/25/23: EF 60-65%, trace MR, aortic sclerosis without stenosis
Plan:
He appears stable from cardiac standpoint.
Heart rate better controlled, resting heart rate in the 60s, went up rises to 130s but overall proved. Continue metoprolol ER 100 mg twice daily.
Continue Eliquis 5 mg twice daily.
Volume status seems appropriate at present, he had been on hydrochlorothiazide and lisinopril at admission. These are now held, blood pressures have been rising, would restart lisinopril/hydrochlorothiazide 10/12.5 daily and recheck BMP at [facility] in 5
to 7 days.
Okay to transfer to [facility] from our standpoint.
HPI: Patient came to [facility] 10/15/23 with abdominal pain and constipation and was admitted with sepsis and stercoral colitis, cardiology is now consulted for acute HF. Patient came to ER with abdominal pain and constipation and appeared to be septic.
He was started on pressors and later taken to the OR same day for a damage control operation with subtotal colectomy. He returned to the OR 10/18/23 for wound closure and end ileostomy. Patient has received 17.25 liters of IVFs since admission. He is
now allowed sips of water and is receiving TPN. Cardiology is asked to see patient for possible acute HF. His weight is overall up 10 lbs from admission despite NPO and bowel surgery. He denies edema, bloating or SOB. His pro-BNP was 3680 yesterday
and he was started on Lasix 40 mg IV daily. Patient denies chest pain. He has permanent Afib and HRs are rapid, but he denies palpitations. He was not taking a rate controlling med prior to admission, but was started on Toprol XL 50 mg BID
yesterday.
Progress Note - Edge Trimmer
Subjective
Date of Service: November 10, 2023
Patient accepted to [facility]
PMH/PSH/SH/FH: Reviewed
Allergies: Penicillin
Current medications: Reviewed, metoprolol ER is now 100 mg twice daily
134/92, pulse 85, respiratory 20, head neck exam unremarkable, some crackles in lungs, irregular rate and rhythm without obvious murmurs JVD okay, abdomen overall intact, extremities without substantial edema, neuro nonfocal
No labs today
Telemetry: Basal heart rate in the 60s to 70s, transiently increases with activity but rate overall good
Objective
Labs:
11/09/23 04:01
11/09/23 04:01
Labs
Hgb 9.9 g/dL (13.0-18.0) L 11/09/23 04:01
Hct 30.4 % (39.0-52.0) L 11/09/23 04:01
Plt Count 414 10^3/uL (130-400) H 11/09/23 04:01
PT 15.3 Sec (11.4-14.6) H 10/26/23 06:11
INR 1.20 10/26/23 06:11
APTT Cancelled 11/06/23 10:50
Sodium 139 mmol/L (135-145) 11/09/23 04:01
Potassium 4.0 mmol/L (3.5-5.1) 11/09/23 04:01
BUN 19 mg/dl (9-20) 11/09/23 04:01
Creatinine 0.7 mg/dL (0.7-1.3) 11/09/23 04:01
Glucose 109 mg/dl (70-99) H 11/09/23 04:01
Vital Signs and I&O:
Vital Signs
Temp Pulse Resp BP Pulse Ox
36.6 C 85 20 134/92 97
11/10/23 11:11 11/10/23 08:47 11/10/23 07:16 11/10/23 08:47 11/10/23 11:01
Vital Signs
Temp Pulse Resp BP Pulse Ox
36.6 C 85 20 134/92 97
11/10/23 11:11 11/10/23 08:47 11/10/23 07:16 11/10/23 08:47 11/10/23 11:01
Intake & Output
11/08/23 11/09/23 11/10/23 11/11/23
07:59 07:59 07:59 07:59
Intake Total 2080 / 2080 750 / 750
Output Total 1150 / 1150 1600 / 1600 975 / 975
Balance -1150 / -1150 480 / 480 -225 / -225
Physical Exam
Physical Exam
See above
--- NOTE | 2023-11-10 14:19 | W.DCSUMMARY ---
Discharge Summary
Discharge Data
Date of Admission: 10/15/23
Date of Discharge: 11/10/23
-
Pending Results: No
Discharge Plan
-
Patient Disposition: Acute Rehab Facility
Condition: Fair
Diet: Regular
Activity: With assistance, With Walker and No strenuous activity
Additional Activity: do not lift over 15lbs for the next 4-6 weeks
Driving Restrictions: Not until seen by your Dr
Bathing Restrictions: OK to Shower
Blood Work: CBC and BMP in 5-7 days of discharge
Iron studies in 1 month of discharge
HgA1c in 3 months of discharge
Other Services: VN, PT and OT
Wound Care: Cover your incision with dry gauze dressing if you notice drainage between jabari and change daily and as needed. Ok to leave dressing off if no drainage present.
Bushnell will be removed during your follow up appointment 2-3 weeks after your surgery on 11/01/2023
Activity Restrictions/Additional Instructions:
Anterior scrotal bruise-keep clean and protected. If skin breaks, apply barrier ointment (i.e. Vaseline) bid.
Pressure redistributing chair cushion (i.e. Air chair cushion).
Ostomy supplies: [employer] #[id number], and pouch # [id number]. Add karen seal if leakage becomes a problem. Change appliance 2 times a week and as needed for leakage.
Call supply [employer] (list in folder provided) for monthly Ostomy supplies after discharge (ask to order supplies while on service).
Follow up with surgeon.
Call [facility] RN nurse for ostomy pouching concerns or leakage problems [phone] or [phone] or [phone].

As per infectious disease, Augmentin and Fluconazole prescribed for 5 days (last day 11/13) to complete treatment intra-abdomen infection.
Iron supplement prescribed for iron deficiency anemia.
Spiriva prescribed as per Pulmonology for better control COPD
Melatonin prescribed as needed for sleep.
Metformin discontinued as sugars have been consistently at goal, past A1c's have been consistent with prediabetes, and significant weight loss since start of hospitalization.
Please take medications as prescribed/recommended and follow up with primary care provider and/or other healthcare provider involved in your care for refills and/or further adjustment to your medication regimen as necessary.
Referrals:
Mary Beth Hirsch PA-C [Specified Professional Personl] - 12/06/23 10:40 am (You have cardiology follow with Mary Beth Hirsch PA-C on December 05 at 10:40 am in [address] in the [place]. If you are unable to make this appointment please call [phone]
to reshedule)
Edinson Chambers MD [Active] - in two to three weeks (Status post pneumonia, history of COPD)
Jeffrey Richardson MD [Active] - in two weeks (follow up with your surgeon for removal of jabari )
Prescriptions:
New
amoxicillin-pot clavulanate 875-125 mg Tablet
1 tab PO Q12 5 Days Qty: 10 0RF
Rx Instructions:
Last day 11/14/23
fluconazole 200 mg Tablet
400 mg PO DAILY 5 Days Qty: 10 0RF
Rx Instructions:
Last day 11/14/23
melatonin 3 mg Tablet
3 mg PO HSPRN PRN (Reason: sleep) 30 Days Qty: 30 0RF
pantoprazole 40 mg Tablet,Delayed Release (Dr/Ec)
40 mg PO DAILY 30 Days Qty: 30 0RF
ferrous sulfate [FeroSul] 325 mg (65 mg iron) Tablet
325 mg PO DAILY 30 Days Qty: 30 0RF
Spiriva Respimat 2.5 mcg/actuation Mist
2 puff inhalation R DAILY Qty: 4 0RF
metoprolol succinate 100 mg Tablet Extended Release 24 Hr
100 mg PO BID 30 Days Qty: 60 0RF
Continued
tamsulosin 0.4 mg Capsule
0.4 mg PO DAILY
lisinopril-hydrochlorothiazide 20-25 mg Tablet
1 tab PO DAILY
albuterol sulfate 90 mcg/actuation Hfa Aerosol Inhaler
2 puff INHALATION Q6H PRN (Reason: SOB)
Eliquis 5 mg Tablet
5 mg PO BID
Discontinued
metformin 500 mg Tablet
500 mg PO BID
doxycycline hyclate 100 mg Tablet
100 mg PO BID
Discharge Orders:
Discharge Patient (As Directed); Ordered 11/10/23
Ordered By: Emanuel Christy
Discharge Date and Time
Print Language: ARABIC
--- NOTE | 2023-11-10 14:45 | WOUNDNOTE ---
[facility] RN NOTE: Ileostomy appliance changed early this morning per nurse Last, additional supplies obtained by nurse. Stoma is pink for liquid brown stool and gas, no leakage. Asked patient if he had any questions, patient stated no. Patient made
aware that once discharged from rehab will have VN and can follow up with ostomy nurse as outpatient if needed. For discharge to [place] today.
== END 2023-11-10 15:42 | DRG 853 ==
LOC: IMU 07:34
PROVIDERS: Internal Medicine; Internal Medicine Critical Care Medicine; Nurse Practitioner Adult Health; Nurse Practitioner Family; Registered Nurse; Surgery; ADMITTING PHYSICIAN Hospitalist; ATTENDING PHYSICIAN Internal Medicine; CONSULT PHYSICIAN Internal Medicine; CONSULT PHYSICIAN Physical Medicine & Rehabilitation; CONSULT PHYSICIAN Student in an Organized Health Care Education/Training Program; CONSULT PHYSICIAN Surgery; EMERGENCY PHYSICIAN Emergency Medicine; OTHER PHYSICIAN Internal Medicine Cardiovascular Disease; OTHER PHYSICIAN Internal Medicine Critical Care Medicine
PROC: 0DBE0ZZ Excision of Large Intestine, Open Approach (ICD-10-PCS; 2023-10-15)
PROC: 02HV33Z Insertion of Infusion Device into Superior Vena Cava, Percutaneous Approach (ICD-10-PCS; 2023-10-15)
PROC: 5A1945Z Respiratory Ventilation, 24-96 Consecutive Hours (ICD-10-PCS; 2023-10-15)
PROC: 0BH17EZ Insertion of Endotracheal Airway into Trachea, Via Natural or Artificial Opening (ICD-10-PCS; 2023-10-15)
PROC: 30283B1 Transfusion of Nonautologous 4-Factor Prothrombin Complex Concentrate into Vein, Percutaneous Approach (ICD-10-PCS; 2023-10-15)
PROC: 0DTN0ZZ Resection of Sigmoid Colon, Open Approach (ICD-10-PCS; 2023-10-18)
PROC: 0D1B0Z4 Bypass Ileum to Cutaneous, Open Approach (ICD-10-PCS; 2023-10-18)
PROC: 5A09357 Assistance with Respiratory Ventilation, Less than 24 Consecutive Hours, Continuous Positive Airway Pressure (ICD-10-PCS; 2023-10-19)
PROC: 3E0436Z Introduction of Nutritional Substance into Central Vein, Percutaneous Approach (ICD-10-PCS; 2023-10-21)
PROC: 0DBB0ZZ Excision of Ileum, Open Approach (ICD-10-PCS; 2023-10-25)
PROC: 30233N1 Transfusion of Nonautologous Red Blood Cells into Peripheral Vein, Percutaneous Approach (ICD-10-PCS; 2023-10-26)
PROC: 0DW807Z Revision of Autologous Tissue Substitute in Small Intestine, Open Approach (ICD-10-PCS; 2023-11-03)
DX: A41.9 Sepsis, unspecified organism (principal); I50.31 Acute diastolic (congestive) heart failure; J18.9 Pneumonia, unspecified organism; R65.21 Severe sepsis with septic shock; J96.01 Acute respiratory failure with hypoxia; K55.049 Acute infarction of large intestine, extent unspecified; K65.9 Peritonitis, unspecified; K72.00 Acute and subacute hepatic failure without coma; I48.21 Permanent atrial fibrillation; A69.23 Arthritis due to Lyme disease; N17.9 Acute kidney failure, unspecified; J44.0 Chronic obstructive pulmonary disease with (acute) lower respiratory infection; E46 Unspecified protein-calorie malnutrition; E87.0 Hyperosmolality and hypernatremia; E87.21 Acute metabolic acidosis; R18.8 Other ascites; K91.870 Postprocedural hematoma of a digestive system organ or structure following a digestive system procedure; E87.3 Alkalosis; Y83.6 Removal of other organ (partial) (total) as the cause of abnormal reaction of the patient, or of later complication, without mention of misadventure at the time of the procedure; Z66 Do not resuscitate; K56.41 Fecal impaction; K52.89 Other specified noninfective gastroenteritis and colitis; I25.10 Atherosclerotic heart disease of native coronary artery without angina pectoris; N40.1 Benign prostatic hyperplasia with lower urinary tract symptoms; I11.0 Hypertensive heart disease with heart failure; E87.6 Hypokalemia; R73.03 Prediabetes; E83.39 Other disorders of phosphorus metabolism; I73.9 Peripheral vascular disease, unspecified; D64.9 Anemia, unspecified; K66.0 Peritoneal adhesions (postprocedural) (postinfection); R33.8 Other retention of urine; Z11.52 Encounter for screening for COVID-19; Z68.25 Body mass index [BMI] 25.0-25.9, adult; Z79.01 Long term (current) use of anticoagulants; Z79.84 Long term (current) use of oral hypoglycemic drugs; Z79.899 Other long term (current) drug therapy; Z87.891 Personal history of nicotine dependence; Z90.49 Acquired absence of other specified parts of digestive tract
CPT/HCPCS: 88304; 88307; 71045; 74018; 74177; 76870; 80048; 80053; 81003; 81015; 82248; 82533; 82607; 82746; 82805; 82947; 82962; 83036; 83540; 83550; 83605; 83690; 83735; 83880; 84100; 84443; 84478; 84484; 85014; 85018; 85025; 85027; 85384; 85610; 85652; 85670; 85730; 86140; 86704; 86705; 86706; 86708; 86709; 86803; 86850; 86900; 86901; 86920; 87040; 87070; 87075; 87086; 87106; 87205; 87340; 87811; 92526; 92610; 93005; 93306; 93976; 94002; 94003; 94640; 94660; 96361; 96365; 96375; 96376; 97110; 97116; 97163; 97167; 97530; 97535; 99291; C1776; J2916; J2997; J7168; P9016; P9045; Q9967

== ENCOUNTER → 2023-12-19 11:50 | Outpatient (REF) | payer OTHER, SELFPAY | LOC: RAD 11:50 | PROVIDERS: ATTENDING PHYSICIAN Nurse Practitioner Family; FAMILY PHYSICIAN Family Medicine | DX: R93.89 Abnormal findings on diagnostic imaging of other specified body structures (principal) | CPT/HCPCS: 71046 ==

== ENCOUNTER → 2023-12-20 14:42 | Outpatient (REF) | payer OTHER, SELFPAY ==
[2023-12-20 17:35] LABS: Urine Albumin Negative (Neg - Trace); Urine Bilirubin Negative (Negative); Urine Character Clear (Clear); Urine Color Yellow; Urine Glucose Negative (Negative); Urine Ketone Negative (Negative); Urine Leukocyte 2+ (Negative); Urine Nitrite Positive (Negative); Urine Occult Blood Negative (Negative); Urine Urobilinogen Negative (Neg - 1+)
[2023-12-20 17:42] LABS: Urine Bacteria Many (Negative); Urine Red Blood Cell 0-2 /HPF (0-2); Urine Squamous Cell 0-2 /LPF (Few); Urine White Cell 80-90 /HPF (0-5)
== END ==
LOC: CLAB 14:42
PROVIDERS: ATTENDING PHYSICIAN Nurse Practitioner Family
DX: R39.9 Unspecified symptoms and signs involving the genitourinary system (principal)
CPT/HCPCS: 81003; 81015; 87077; 87086; 87186

== ENCOUNTER 2024-01-03 11:38 | Inpatient (IN) | payer OTHER, SELFPAY ==
[2024-01-01 13:54] VITALS: BP 128/83
[2024-01-01 14:10] LABS: % Basophils 0.5 % (0-2); % Eosinophils 0.8 % (0-6); % Immature Granulocytes 0.6 % (0-0.5); % Lymphocytes 8.3 % (20.5-51.1); % Monocytes 10.9 % (1.7-9.3); % Neutrophils 78.9 % (42.2-75.2); Absolute Basophils 0.1 10^3/uL (0-0.2); Absolute Eosinophils 0.1 10^3/uL (0-0.7); Absolute Immature Granulocytes 0.1 10^3/uL (0-0.05); Absolute Lymphocytes 0.8 10^3/uL (1.2-3.4); Absolute Monocytes 1.1 10^3/uL (0.1-0.6); Hematocrit 36.6 % (39.0-52.0); Hemoglobin 11.8 g/dL (13.0-18.0); Mean Corp Hgb Conc. 32.2 g/dL (33.0-37.0); Mean Corpuscular Hgb 29.1 pg (27.0-31.0); Mean Corpuscular Volume 90.1 fL (80.0-94.0); Mean Platelet Volume 8.9 fL (7.4-10.4); Nucleated Red Blood Cells % 0 % (-); Platelet Count 270 10^3/uL (130-400); Red Blood Cell Count 4.06 10^6/uL (4.70-6.10); White Blood Cell Count 10.2 10^3/uL (4.8-10.8)
[2024-01-01 14:23] LABS: ALT (SGPT) 18 U/L (0-50); AST (SGOT) 28 U/L (17-59); Albumin 4.3 g/dl (3.5-5.0); Alkaline Phosphatase 57 U/L (38-126); Blood Urea Nitrogen 25 mg/dl (9-20); Calcium 10.1 mg/dl (8.4-10.2); Carbon Dioxide 24 mmol/L (22-30); Chloride 101 mmol/L (98-107); Glucose 132 mg/dl (70-99); Potassium 4.1 mmol/L (3.5-5.1); Sodium 140 mmol/L (135-145); Total Bilirubin 0.5 mg/dl (0.2-1.3); Total Protein 7.2 g/dl (6.3-8.2); eGFR 49.16
--- NOTE | 2024-01-01 16:34 | ED.GENMED ---
History of Present Illness
General
Chief Complaint: Male Genito-Urinary Symptoms
Source: patient
Exam Limitations: none
Time Seen by Provider: 01/01/24 16:21
Nursing documentation reviewed up to this point in time: agreed with
History of Present Illness
History of Present Illness:
73-year-old male presents emergency room complaining of dysuria. He has had symptoms since last Monday or Monday. He had a doctor's appointment on and a UA was performed. Today he was told the culture showed an infection and he needs
to go to the ER for IV antibiotics. He has an ileostomy.
Past History
Past History
ED Past Medical History: Arrthythmia (Atrial fibrillation), HTN and NIDDM
ED Past Surgical History: Appendectomy (At age 7)
Social History
Tobacco: Non-smoker
Alcohol: None
Drug: None
Personal:
Living: with family
Employment: Retired
Family History
Family History: Other (Noncontributory)
Review of Systems
Review of Systems
Allergies reviewed?: Yes
Constitutional: Reports no symptoms
EENT: Reports no symptoms
Respiratory: Reports no symptoms
ABD/GI: Reports no symptoms
: Reports dysuria, frequency and urgency
Musculoskeletal: Reports no symptoms
Skin: Reports no symptoms
Neurological: Reports no symptoms
Endocrine: Reports no symptoms
Hematologic/Lymphatic: Reports no symptoms
Psychiatric: Reports no symptoms
Phy Exam
Physical Exam
Physical Exam:
Physical Exam
General: no apparent distress, not acutely ill
Neck: supple. no meningeal signs. normal posterior pharynx
Heart: s1/s2 regular rate and rhythm, no murmur. equal radial
pulses.
HEENT: Pupils equal round reactive to light, EOMI
Lungs: no acute respiratory distress. clear bilaterally
Abdomen: normal bowel sounds. not tender. no CVAT, ileostomy
Neuro: alert and oriented. no focal neurological deficits cranial nerves II through XII intact
Skin: no rash
Psychiatric: well kept. interactive and cooperative
Extremities: no edema. no calf tenderness. negative homans. good distal pulses
Course
Orders/Labs/Results
Orders:
Orders
01/01/24 Breakfast
Cholesterol Lowering
At Your Request: Full Participation
Does patient need a safe tray?: No
Cholesterol Lowering: Sodium, 2 Gram
01/01/24 14:01
Complete Blood Count/With Diff Urgent
Comprehensive Metabolic Panel Urgent
01/01/24 16:51
Cefepime HCl [Maxipime] 2,000 mg IV NOW STA
01/01/24 17:06
Acetaminophen [Tylenol] 650 mg PO NOW STA
01/01/24 17:34
Admit/Transfer Patient As Directed
Co-Sign Provider:
Level of Care: Observation services
Assign to:: Telemetry
Physician / Group: AUGUSTINE
Diagnosis: uti
Reason for Telemetry: Arrhythmia
Date to Stop Telemetry: 01/04/24
Time to Stop Telemetry: 11:00
Reason for Hospitalization: utI
PRN Pain Medication Management As Directed
May give lesser potent ordered pain med per pt: Yes
preference::
Protocol:: Medication orders for pain may be administered in a
manner that supports deferring to patient preference
when the pt is:
- Requesting an ordered lesser potent pain medication.
Least to most potent pain medications are defined
as: acetaminophen < NSAID < tramadol < opioids
(morphine, oxycodone, hydromorphone).
- Requesting a lesser dose of the same medication IF
ORDERED.
- Requesting a less intrusive route of administration
if both routes are prescribed by the provider (PO <
IV).
01/01/24 17:35
Code Status As Directed
Resuscitation Status: Full Code
01/01/24 17:38
EKG [Electrocardiogram (*1)] Stat
Reason for Study: Atrial Fibrillation
01/01/24 17:40
Bladder Scan As Directed
Follow Bladder Retention/Intermittent Cath Algorithm?: Yes
PRN if no void in __ hours: 6
Frequency: Per Retention Algorithm
If Bladder Scan Result >: 400
then:: Straight cath
Straight Cath As Directed
Frequency: Per Retention Algorithm
Additional Instructions: straight cath as needed per acute urinary retention algorithm for 24 hrs
Additional Instructions: for bladder scan greater than 400 mL
01/01/24 17:50
Lactic Acid Q4H
Comment: CANCEL 2nd LACTIC ACID IF 1st LACTIC ACID IS LESS THAN 2
Blood Culture Q30M
JONAS Source: Blood/Venous
Specimen Description:
Blood Culture Q30M
JONAS Source: Blood/Venous
Specimen Description:
01/01/24 18:30
0.9% Sodium Chloride 1000 ml [Nss] 1,000 ml IV 100 mls/hr
Acetaminophen [Tylenol] 650 mg PO Q4HPRN PRN
Bisacodyl [Dulcolax] 10 mg RECTAL [id number] PRN
Docusate W/Senna [Senokot-S] 1 tablet PO BIDPRN PRN
Melatonin 3 mg PO HSPRN PRN
Polyethylene Glycol Powder [Miralax] 17 grams PO DAILYPRN PRN
Tamsulosin [Flomax] 0.4 mg PO QPM
01/01/24 18:30
Activity As Directed
Activity Level: As Tolerated
Vital Signs As Directed
Frequency: Per unit guidelines
01/01/24 20:00
Apixaban [Eliquis] 5 mg PO BID
CefTRIAXone [Rocephin] 1,000 mg IV Q24H
Magnesium Oxide 500 mg PO BID
01/02/24 06:00
Basic Metabolic Panel IN AM
Complete Blood Count/No Diff IN AM
01/02/24 08:00
Ferrous Sulfate [Feosol] 325 mg PO DAILY
Finasteride [Proscar] 5 mg PO DAILY
Metoprolol Xl [Toprol Xl] 100 mg PO DAILY
Pantoprazole [Protonix] 40 mg PO DAILY
Tiotropium Jadwin 2.5 Mcg [Spiriva Respimat 2.5 Mcg] 2 puff INH R DAILY
01/04/24 11:00
DC Protocol for Telemetry ONCE
Abnormal Lab Results
01/01/24
14:01
RBC 4.06 L 10^6/uL
(4.70-6.10)
Hgb 11.8 L g/dL
(13.0-18.0)
Hct 36.6 L %
(39.0-52.0)
MCHC 32.2 L g/dL
(33.0-37.0)
Abs Immat Gran (auto) 0.1 H 10^3/uL
(0-0.05)
Absolute Neuts (auto) 8.0 H 10^3/uL
(1.4-6.5)
Absolute Lymphs (auto) 0.8 L 10^3/uL
(1.2-3.4)
Absolute Monos (auto) 1.1 H 10^3/uL
(0.1-0.6)
Immature Gran % 0.6 H %
(0-0.5)
Neutrophils % 78.9 H %
(42.2-75.2)
Lymphocytes % 8.3 L %
(20.5-51.1)
Monocytes % 10.9 H %
(1.7-9.3)
BUN 25 H mg/dl
(9-20)
Creatinine 1.5 H mg/dL
(0.7-1.3)
Glucose 132 H mg/dl
(70-99)
01/01/24 14:01
01/01/24 14:01
Vital Signs
Initial and Last Documented VS:
Initial Vital Signs
Temp Pulse Resp BP Pulse Ox
97.6 F 106 16 128/83 98
01/01/24 13:54 01/01/24 13:54 01/01/24 13:54 01/01/24 13:54 01/01/24 13:54
Last Documented Vital Signs
Temp Pulse Resp BP Pulse Ox
98.2 F 81 18 153/101 95
01/01/24 19:45 01/01/24 19:45 01/01/24 19:45 01/01/24 19:45 01/01/24 20:00
MDM/Problems Addressed
Differential Diagnosis Includes:
UTI 73-year-old male with UTI, showing Pseudomonas, sensitivities only to IV medications. Will start cefepime. Admit to hospitalist
MDM/Problems Addressed:
73-year-old male with UTI, showing Pseudomonas, sensitivities only to IV medications. Will start cefepime. Admit to hospitalist
Chronic conditions affecting care: DM, COPD and Asthma
*Pulse Oximetry
Patient hypoxic: no
*Critical Care Note
Total Time (30-74mins, 75-104mins- exclusive of procedures): Not Applicable
Data Reviewed
Review of Other/Old Records Reveals: Labs (prior cr normal prior pseudomonas infection)
Source: records
Patient Management
Social determinants of health affecting care: Living situation
Discussion with other providers: Hospitalist
Escalation/DeEscalation of care consider admission/obs:
admit indicated
ED Attending Note
-
Portions of this chart may have been created with voice recognition software.� Occasional wrong word or��sound alike� substitutions may have occurred due to the inherent limitations of voice recognition software.
Discharge Plan
Departure
Patient Disposition: Admit
Date of Disposition: 01/01/24
Time of Disposition: 16:51
Admit to: Med/Surg
Presentation/result/management discussed w/ accepting MD/DO: Hospitalist
Patient with high blood pressure during this ER visit?: Yes
Condition: Good
Discharge Problem:
Acute kidney failure, Acute UTI
Interventions
Interventions:
*Risk Screen - Suicide Last Done: 01/01/24 13:54
*General Assessment Last Done: 01/01/24 16:31
*Neglect/Abuse Screening Last Done: 01/01/24 13:54
ED- Fall Risk Assessment Last Done: 01/01/24 16:31
*ED COVID-19 Vaccine History Last Done: 01/01/24 20:08
*Nursing Disposition Last Done: 01/01/24 18:36
ED-Male Genitourinary Assessment Last Done: 01/01/24 16:31
Discharge Date and Time
Discharge Date/Time: 01/01/24 18:37
--- NOTE | 2024-01-01 16:59 | HPS.HSE ---
Family Physician
-
Family Physician: Javier Herrera
Chief Complaint
-
dysuria
History of Present Illness
73-year-old male with PMH for COPD, ascites, HLD, HTn, type 2 DM, BPH, atrial fib, CHF, PVD presented to us with dysuria for two weeks. patient took Bactrim for 5 days. after 3 days, he felt the dysuria. he was prescribed some other abx with no
relief in his symptoms. he was started on Bactrim again on last . his urine culture which was collect on , grew pseudomonas which was resistant to oral abx. he was referred to ER for iv abx.patient denied ALBERTO, dizzy or syncopal
episode. denied fever, chills, chest pain, sob. denied abdominal pain, n,v,d. denied dysuria or hematuria.
On arrival patient is tachy, fever. received a dose of cefepime. admitting for further management.
Medical History
Past Medical History
Past Medical History: Reports Other
Additional Past Medical History:
COPD
ascites
HLD
HTn
type 2 DM
BPH
atrial fib
CHF
atrial fib
PVD
Past Surgical History: Reports Other
Additional Past Surgical History:
appendectomy
ex lap, bowel resection creat of ileostomy
revision of ileostomy
Social History
Tobacco: Former Smoker
Alcohol: None
Drug: None
Personal:
Living: With Family
Family History
Family History: Not pertinent
Allergies / Home Medications
Allergies reflects when Allergies were last updated in [employer].
Home Medications with original date entered in [employer]
Allergy/Medication List:
Allergies
Allergy/AdvReac Type Severity Reaction Status Date / Time
Penicillins Allergy Mild Unknown Verified 01/01/24 13:57
Home Medications
melatonin 3 mg tablet 3 mg PO HSPRN PRN sleep 30 days #30 tabs 11/10/23
finasteride 5 mg tablet 5 mg PO DAILY Urinary issue 30 days #30 tabs 11/22/23
magnesium oxide 500 mg PO BID supplement 30 days #60 tabs 11/22/23
pantoprazole 40 mg tablet,delayed release 40 mg PO DAILY GERD 30 days #30 tabs 11/22/23
apixaban 5 mg tablet (Eliquis) 5 mg PO BID Blood Clot Prevention/Tx #60 tabs 11/23/23
ferrous sulfate 325 mg (65 mg iron) tablet (FeroSul) 325 mg PO DAILY supplement 30 days #30 tabs 11/23/23
metoprolol succinate 100 mg tablet,extended release 24 hr 100 mg PO DAILY blood pressure 30 days #30 tabs 11/23/23
tiotropium bromide 2.5 mcg/actuation mist for inhalation (Spiriva Respimat) 2 puff inhalation R DAILY Lung/breathing issues #4 grams 11/23/23
sulfamethoxazole 800 mg-trimethoprim 160 mg tablet 1 tab PO BID 01/01/24
tamsulosin 0.4 mg capsule 0.4 mg PO QPM Urinary Issue 01/01/24
Review of Systems
-
Constitutional: Reports No Symptoms
EENT: Reports No Symptoms
Respiratory: Reports No Symptoms
Cardiac: Reports No Symptoms
Abdomen/GI: Reports No Symptoms
: Reports Dysuria
Musculoskeletal: Reports No Symptoms
Skin: Reports No Symptoms
Neurological: Reports No Symptoms
Endocrine: Reports No Symptoms
Hematologic/Lymphatic: Reports No Symptoms
Psych: Reports No Symptoms
Physical Exam
Vital Signs
Vital Signs
Temp Pulse Resp BP Pulse Ox
101.1 F H 171 18 128/83 96
01/01/24 16:52 01/01/24 16:52 01/01/24 16:00 01/01/24 13:54 01/01/24 16:52
Physical Exam
General: Well Developed, Well Nourished and No Apparent Distress
HEENT: NormoCephalic, Moist mucous membranes and Atraumatic
Respiratory: Clear
Cardiac: S1/S2 and Regular Rhythm; No Murmur or Rub
GI: Soft, Non Tender, Non Distended and Normal Bowel Sounds; No Organomegaly
Rectal: Deferred by Provider
Musculoskeletal: No Clubbing, No Cyanosis and No Edema
Skin: No Rash
Neuro: AO x 3 and Nonfocal/grossly intact
Psych: Calm
Laboratory Results
-
01/01/24 14:01
01/01/24 14:01
Laboratory Results
Total Bilirubin 0.5 mg/dl (0.2-1.3) 01/01/24 14:01
AST 28 U/L (17-59) 01/01/24 14:01
ALT 18 U/L (0-50) 01/01/24 14:01
Alkaline Phosphatase 57 U/L (38-126) 01/01/24 14:01
Data Reviewed
-
Lab Data: Labs Reviewed by me
Impression/Plan
-
#urinary tract infection
-urine culture with Pseudomonas aeruginosa
-ceftriaxone continued
-fluids continued
-Tylenol prn for fever and pain
#acute kidney injury likely due recent Bactrim
-normal saline continued x1 bag
#anemia of chronic disease
-hgb stable at 11.8
-no active bleeding
-ctm
-ferrous sulfate continued
#BPH
-finasteride,Flomax continued
#GERD
-PPI continued
#hxt of small bowel resection
-ileostomy in place.
#History of COPD
-Nebulized bronchodilators
#paroxysmal atrial fib
-obtain EKG
-eliquis, metoprolol continued
#Insomnia
-melatonin
#DVT prophylaxis
-eliquis
#code STATUS
-FULL CODE
[2024-01-01 17:28] VITALS: BP 156/99; BMI 25.3
[2024-01-01] MEDS: MAXIPIME 2000 MG IV (17:51)
[2024-01-01 18:15] LABS: Lactic Acid 1.2 mmol/L (0.7-2.0)
[2024-01-01 18:41] VITALS: BP 142/95; BMI 24.5
[2024-01-01] MEDS: NSS 1000 IV (18:41)
[2024-01-01 19:45] VITALS: BP 153/101
[2024-01-01] MEDS: ELIQUIS 5 MG PO (20:01)
[2024-01-01] MEDS: MAGNESIUM OXIDE 500 MG PO (20:01)
[2024-01-01] MEDS: FLOMAX 0.4 MG PO (20:01)
[2024-01-01] MEDS: ROCEPHIN 1000 MG IV (20:02)
[2024-01-01] MEDS: STERILE WATER FOR INJECTION 10 ML IV (20:02)
[2024-01-01 20:17] VITALS: BMI 24.5
[2024-01-01 23:18] VITALS: BP 143/87
[2024-01-02 03:35] VITALS: BP 151/101
[2024-01-02 07:00] VITALS: BP 161/108
--- NOTE | 2024-01-02 08:15 | VNURNOTE ---
Chart reviewed. [facility]. Will continue to follow hospital course and DC plans.
[2024-01-02] MEDS: PROTONIX 40 MG PO (08:17)
[2024-01-02] MEDS: FEOSOL 325 MG PO (08:17)
[2024-01-02] MEDS: MAGNESIUM OXIDE 500 MG PO ×2 (08:17→20:22)
[2024-01-02] MEDS: PROSCAR 5 MG PO (08:18)
[2024-01-02] MEDS: ELIQUIS 5 MG PO (08:18)
[2024-01-02] MEDS: TOPROL XL 100 MG PO (08:18)
[2024-01-02 08:22] LABS: Hematocrit 33.2 % (39.0-52.0); Hemoglobin 10.6 g/dL (13.0-18.0); Mean Corp Hgb Conc. 31.9 g/dL (33.0-37.0); Mean Corpuscular Hgb 29.2 pg (27.0-31.0); Mean Corpuscular Volume 91.5 fL (80.0-94.0); Mean Platelet Volume 8.7 fL (7.4-10.4); Platelet Count 222 10^3/uL (130-400); Red Blood Cell Count 3.63 10^6/uL (4.70-6.10); White Blood Cell Count 7.6 10^3/uL (4.8-10.8)
[2024-01-02] MEDS: SPIRIVA RESPIMAT 2.5 MCG 2 PUFF INH (08:28)
[2024-01-02] MEDS: TYLENOL 650 MG PO (08:30)
[2024-01-02 08:59] LABS: Blood Urea Nitrogen 26 mg/dl (9-20); Calcium 9.7 mg/dl (8.4-10.2); Carbon Dioxide 22 mmol/L (22-30); Chloride 106 mmol/L (98-107); Estimated Creatinine Clearance 41 ml/min; Glucose 101 mg/dl (70-99); Potassium 3.9 mmol/L (3.5-5.1); Sodium 139 mmol/L (135-145)
--- NOTE | 2024-01-02 09:51 | WOUNDNOTE ---
[facility] RN NOTE: Consult received for pouch change. Patient known to service and is still receiving VN for ostomy teaching. Patient said he empties pouch 2-3 times/day but has not yet changed appliance. Ostomy is pink and budded. Peristomal skin intact.
Last pouch change was about 5 days ago. Pouch changed with barrier #[id number] and #pouch [id number]. Patient also given new ostomy belt. Will sign off.
--- NOTE | 2024-01-02 10:42 | CM ---
Patient seen bedside with , initial assessment completed. Patient resides with his in a multiple story home, one step to enter. Patient has a walker and cane at home if needed, reports he does not typically use any device. Patient current
with [facility], reports history of [facility] in past. Patient PCP Javier Herrera, pharmacy [facility], confirms prescription coverage. Patient denies insecurities at home. PARSONS reviewed, signed, placed in chart, patient provided with copy. Patient
hopeful for discharge today. CM will continue to follow for all discharge planning needs.
Plan; [facility] , [facility]
--- NOTE | 2024-01-02 11:23 | W.PN.HOSP.TC ---
Today's Communication/Plan
-
Continue with IV ceftriaxone, plan cefdinir for 10 to 14-day course at discharge
Order kidney/bladder ultrasound to rule out obstructive uropathy
Continue with IV fluids and trend BMP
Straight cath protocol for retention
Assessment / Plan
Assessment / Plan
#Complicated cystitis in male
-Presented with dysuria, failed outpatient antibiotic course with Bactrim
-Upon arrival had no fever or leukocytosis that was previously treated
-Continue to have dysuria and suprapubic discomfort, developed retention in the ED
-Started on IV ceftriaxone, outpatient culture showed sensitivity to third-generation cephalosporin
-Continue with IV ceftriaxone for now, plan for oral cefdinir at discharge to complete 10-14 day antibiotic regimen
-Trend CBC and temperature curve while here
-Follow-up repeat urine cultures
#Acute kidney injury
#Urine retention
#BPH
-Presented with creatinine 1.5, has increased to 1.8 on IVF overnight
-He was on Bactrim, initially thought this may be pseudo JOSE due to Bactrim
-Did develop urine retention while in the ED, has not required catheterization
-Not currently on any nephrotoxic medications or NSAIDs
-Will order kidney bladder ultrasound to rule out obstructive uropathy
-Continue supportive IVF and trend BMP
-Avoid nephrotoxic agents
-Consider urine studies if worsening
-Straight cath as needed per urine retention protocol
-Consider urology consult if worsening
#Paroxysmal AF
-Nonvalvular, no history of electrophysiologic interventions known
-Home medications include metoprolol succinate and Eliquis
-Has been stable here
#HFpEF
-Per history, not currently on any GDMT or loop diuretic regimen
-Suspect this may have been transient and related to volume while in ICU previously
-Remains euvolemic
#PAD
-No known stents or previous bypasses
-Not currently on aspirin or statin
-Likely nonobstructive
#COPD
-Home medications include tiotropium
-No signs of exacerbation at this time
-Remains on room air
#HTN
-Home medications include beta-shahrzad, no first-line agents
-No known history of hypertensive systemic diseases
-Blood pressure here has been slightly elevated though likely from discomfort
-Continue to monitor blood pressure here, consider low-dose CCB if needed
#NIDDM
-Per history, not currently on any antihyperglycemic regimen
-Likely diet controlled
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
-Prolonged hospitalization earlier this year
-Suspect atrial fibrillation in etiology
-Remains with end ileostomy
DVT prophylaxis: Home Eliquis
Diet: Regular
CODE STATUS: Full code
Anticipated Discharge: 24 - 48 hours
Subjective/Interval History
-
Date of Service: January 02, 2024
Seen and examined at the bedside. No acute events reported overnight. AFVSS this morning
He states he still has some discomfort with urination and in the suprapubic region. Has had episodes where he felt like he needed to urinate but cannot initially pass urine. Creatinine uptrending to 1.8 as of this morning
Denies chest pain, dyspnea, fevers or chills, GI issues, abnormal bleeding or bruising, paresthesias or weakness, lightheadedness, palpitations
Objective Data
-
Labs:
Laboratory Results
01/02/24
08:04
WBC 7.6
Hgb 10.6 L
Hct 33.2 L
Plt Count 222
Sodium 139
Potassium 3.9
Chloride 106
Carbon Dioxide 22
BUN 26 H
Creatinine 1.8 H
Glucose 101 H
Calcium 9.7
Vital Signs:
Vital Signs
Temp Pulse Resp BP Pulse Ox
98.2 F 91 19 161/108 95
01/02/24 07:00 01/02/24 07:00 01/02/24 07:00 01/02/24 07:00 01/02/24 07:00
I&O
01/01/24 01/02/24 01/03/24
06:59 06:59 06:59
Intake Total 480 / 480
Output Total 500 / 500 200 / 200
Balance -20 / -20 -200 / -200
Review of Systems
-
History Source: Patient
All other systems: Reviewed and negative
Physical Exam
-
General: Well Nourished, No Apparent Distress and Comfortable
HEENT: Normocephalic, Atraumatic and Moist Mucous Membranes
Respiratory: Clear to Auscultation and Non Labored Respirations
Cardiac: Regular Rhythm and S1/S2; Negative Murmur, Rub or Gallop
GI: Soft, Nondistended, Normal Bowel Sounds and Tender (Mild, suprapubic)
Genito-urinary: No Costovertebral Tender; Negative Celaya
Musculoskeletal: No Clubbing, No Cyanosis and No Edema
Skin: Warm, Dry and Normal Turgor; Negative Rash
Neuro: AO x 3, Nonfocal/Grossly Intact and Central Nerve's Intact
Psych: Calm
Data Reviewed
-
Labs: Labs Reviewed by me and Discussed with Patient
[2024-01-02] MEDS: LR 1000 IV ×2 (11:34→22:16)
[2024-01-02 11:57] VITALS: BP 133/96
[2024-01-02 15:00] VITALS: BP 150/85
--- NOTE | 2024-01-02 16:38 | W.PN.UPDATE ---
Update Note
Progress Note Update
Patient found to have 1200+ ml of urine retention, silva placed. Consulted urology, recommended holding Eliquis for 24 hours as expected bleeding with large volume urine retention. C/w finasteride and tamsulosin 0.4 for now
[2024-01-02] MEDS: FLOMAX 0.4 MG PO (17:12)
--- NOTE | 2024-01-02 19:24 | CON.MD ---
Consultation - Medical
-
see dictated note
pt with long hx of mild bph sx's- maintained on flomax with primary care
extensive bowel hx/surgery starting in fall of this year
had silva in place- was kept on flomax na dproscar started
eventually discharged to [facility]- silva removed but required frequent cic
has been home for several weeks- felt he was emptying but then developed dysuria- outpt ucx 12/27 +- placed on antibx but presented to Er with worsening urinary sx's
mild elevation of cr and mild hydro on u/s- silva placed with 1.2 liter residual
pt resting comfortably now
urine clear with some sediment and small clots
plan
continue silva
hydro due to bladder distension
hold eliquis until tomorrow evening provided pt does not develop more sig hematuria
await cx results
continue flomax and proscar
will likely need to be discharged with cath in place given degree of bladder distension for outpt TOV
[2024-01-02 19:30] VITALS: BP 141/85
[2024-01-02] MEDS: ROCEPHIN 1000 MG IV (20:22)
[2024-01-02] MEDS: STERILE WATER FOR INJECTION 10 ML IV (20:23)
[2024-01-02 23:10] VITALS: BP 154/68
[2024-01-03 03:54] VITALS: BP 130/85
--- NOTE | 2024-01-03 06:50 | W.PN.UPDATE ---
Update Note
Progress Note Update
pt asleep
urine clear
plan to continue silva/flomax and proscar
track cr level- hydro likely due to bladder distension
treat UTI
discharge with silva/VN and outpt f/u for voiding trial
[2024-01-03 07:45] VITALS: BP 135/81
[2024-01-03] MEDS: SPIRIVA RESPIMAT 2.5 MCG 2 PUFF INH (08:07)
[2024-01-03] MEDS: PROTONIX 40 MG PO (08:51)
[2024-01-03] MEDS: PROSCAR 5 MG PO (08:51)
[2024-01-03] MEDS: FEOSOL 325 MG PO (08:51)
[2024-01-03] MEDS: TOPROL XL 100 MG PO (08:51)
[2024-01-03] MEDS: MAGNESIUM OXIDE 500 MG PO ×2 (08:51→21:54)
[2024-01-03 08:56] LABS: % Basophils 0.6 % (0-2); % Eosinophils 1.8 % (0-6); % Immature Granulocytes 0.5 % (0-0.5); % Lymphocytes 12.1 % (20.5-51.1); % Monocytes 12.8 % (1.7-9.3); % Neutrophils 72.2 % (42.2-75.2); Absolute Basophils 0.1 10^3/uL (0-0.2); Absolute Eosinophils 0.1 10^3/uL (0-0.7); Absolute Neutrophils 5.7 10^3/uL (1.4-6.5); Hematocrit 33.8 % (39.0-52.0); Hemoglobin 10.9 g/dL (13.0-18.0); Mean Corp Hgb Conc. 32.2 g/dL (33.0-37.0); Mean Corpuscular Hgb 29.9 pg (27.0-31.0); Mean Corpuscular Volume 92.6 fL (80.0-94.0); Mean Platelet Volume 9.3 fL (7.4-10.4); Nucleated Red Blood Cells % 0 % (-); Platelet Count 233 10^3/uL (130-400); Red Blood Cell Count 3.65 10^6/uL (4.70-6.10); Red Cell Dist. Width 13.8 % (11.5-14.5); White Blood Cell Count 7.8 10^3/uL (4.8-10.8)
[2024-01-03] MEDS: LR 1000 IV ×2 (08:56→17:01)
[2024-01-03 09:09] LABS: Blood Urea Nitrogen 25 mg/dl (9-20); Calcium 9.6 mg/dl (8.4-10.2); Carbon Dioxide 22 mmol/L (22-30); Chloride 105 mmol/L (98-107); Estimated Creatinine Clearance 46 ml/min; Glucose 89 mg/dl (70-99); Potassium 3.9 mmol/L (3.5-5.1); Sodium 139 mmol/L (135-145)
--- NOTE | 2024-01-03 10:00 | PTCARENOTE ---
01/02- Patient voiced some Depression over the past few months in getting his permanent Colonoscopy and now the Celaya. Therapeutic Validating conversation with patient including education on coping skills. No expression of SI. Patient has flat
affect and mildly tearful but expressive and engaging.
[2024-01-03 11:39] VITALS: BP 123/80
--- NOTE | 2024-01-03 11:39 | W.PN.HOSP.TC ---
Today's Communication/Plan
-
Switched to Cefepime
ID eval
cont silva
trend cr
Assessment / Plan
Assessment / Plan
#Complicated cystitis in male due to Pseudomonas UTI
-Presented with dysuria, failed outpatient antibiotic course with Bactrim
-Upon arrival had no fever or leukocytosis that was previously treated
-Continue to have dysuria and suprapubic discomfort, developed retention in the ED
-Outpatient urine culture data noted. DC ceftriaxone start patient on cefepime 1 g every 8 based on creatinine clearance. Discussed with ID pharmacist.
-Culture data with intermediate to Cipro and Levaquin. Will ask ID for input
-Trend CBC and temperature curve while here
#Acute kidney injury
#Urine retention
#BPH
-Presented with creatinine 1.6 today
-He was on Bactrim, initially thought this may be pseudo JOSE due to Bactrim
-Did develop urine retention while in the ED, has not required catheterization
-Not currently on any nephrotoxic medications or NSAIDs
-Continue supportive IVF and trend BMP
-Avoid nephrotoxic agents
-Consider urine studies if worsening
-Straight cath as needed per urine retention protocol
-Urology following recommended to continue with Silva catheter upon discharge with outpatient follow-up
#Paroxysmal AF
-Nonvalvular, no history of electrophysiologic interventions known
-Home medications include metoprolol succinate and Eliquis
-Has been stable here
#HFpEF
-Per history, not currently on any GDMT or loop diuretic regimen
-Suspect this may have been transient and related to volume while in ICU previously
-Remains euvolemic
#PAD
-No known stents or previous bypasses
-Not currently on aspirin or statin
-Likely nonobstructive
#COPD
-Home medications include tiotropium
-No signs of exacerbation at this time
-Remains on room air
#HTN
-Home medications include beta-shahrzad, no first-line agents
-No known history of hypertensive systemic diseases
-Continue to monitor blood pressure here, consider low-dose CCB if needed
#NIDDM
-Per history, not currently on any antihyperglycemic regimen
-Likely diet controlled
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
-Prolonged hospitalization earlier this year
-Suspect atrial fibrillation in etiology
-Remains with end ileostomy
DVT prophylaxis: Home Eliquis
Diet: Regular
CODE STATUS: Full code
Anticipated Discharge: 24 - 48 hours
Subjective/Interval History
-
Date of Service: January 03, 2024
denies any suprapubic pain
remains on silva
Objective Data
-
Labs:
Laboratory Results
01/03/24
07:14
WBC 7.8
Hgb 10.9 L
Hct 33.8 L
Plt Count 233
Sodium 139
Potassium 3.9
Chloride 105
Carbon Dioxide 22
BUN 25 H
Creatinine 1.6 H
Glucose 89
Calcium 9.6
Vital Signs:
Vital Signs
Temp Pulse Resp BP Pulse Ox
98.1 F 71 18 135/81 95
01/03/24 07:45 01/03/24 07:45 01/03/24 07:45 01/03/24 07:45 01/03/24 07:45
I&O
01/02/24 01/03/24 01/04/24
06:59 06:59 06:59
Intake Total 480 / 480 2880 / 2880
Output Total 500 / 500 3700 / 3700
Balance -20 / -20 -820 / -820
Physical Exam
-
General: Well Nourished, No Apparent Distress and Comfortable
HEENT: Normocephalic, Atraumatic and Moist Mucous Membranes
Respiratory: Clear to Auscultation and Non Labored Respirations
Cardiac: Regular Rhythm and S1/S2; Negative Murmur, Rub or Gallop
GI: Soft, Nontender, Nondistended and Normal Bowel Sounds
Genito-urinary: No Costovertebral Tender and Silva
Musculoskeletal: No Clubbing, No Cyanosis and No Edema
Skin: Warm, Dry and Normal Turgor; Negative Rash
Neuro: Awake, AO x 3, Nonfocal/Grossly Intact and Central Nerve's Intact
Psych: Calm
--- NOTE | 2024-01-03 13:25 | CM ---
Addendum entered by Char Almonte 01/03/24 15:41:
Patient will require IV antibiotics upon discharge. Patient agreeable to script/clinicals sent to [facility]- update to Laxmi at [facility] with referral, faxed to [phone].
Original Note:
CM received consult for [place] [facility]- update to [facility] liaison as patient is current with services. Patient remains on IV antibiotics. Patient seen bedside, reports no needs to CM at this. CM will continue to follow for all discharge planning needs.
Plan; home with [facility] when stable.
--- NOTE | 2024-01-03 14:07 | CON.ID ---
Consultation
-
Date/Time Consultation Requested: 01/03/24 11:49
Date/Time Consultation Performed: 01/03/24 14:12
Requesting Provider: Dr Madrid
Performing Provider: Dr Epstein
Reason for Consultation: MDRO UTI
Chief Complaint / Past History
Chief Complaint
dysuria
History of Present Illness
Mr Younger is a 73 year old male with CHF, COPD, history of end ileostomy for ischemic bowel with partial sbo, who presented here 12/31 for 6 days of dysuria. Saw PCP thrusday, UA consistent with UTI initiallly started on bactrim then when cultures
became available PCP referred to the ER for IV antibiotics as showed urine culture with Pseudomonas intermediate to quinolones, urine culture obtained 12/28/23. Since arrival patient has been afebrile, bp stable, wbc initially 10 now 7.8, hgb 11.8,
plt 270, L shift was present, Cr baseline from 1 month ago 0.8, on arrival cr 1.5 and today 1.6, lactic acid 1.2, ua 12/19 80-90 wbc and many bacteria, Patient had repeat urine culture and was switched first to cefepime then to ceftriaxone on
arrival with a plan to finish a course of cefdinir. blood cultures x2 no growth to date. silva placed HD2 for >1.2 L retention. 01/01 renal US: mild BL hydronephrosis, moderate bladder debris. Today patient was switched back to cefepime and ID
was consulted.
Past History
Additional Past Medical History:
COPD
ascites
HLD
HTn
type 2 DM
BPH
atrial fib
CHF
atrial fib
PVD
Additional Past Surgical History:
appendectomy
ex lap, bowel resection creat of ileostomy
revision of ileostomy
Allergy History:
Penicillins Allergy (Mild, Verified 01/01/24 13:57)
Unknown
Medications Reviewed: Yes
Social History
Tobacco: Former Smoker
Alcohol: None
Drug: None
Family History
Family History: Not Pertinent
Review of Systems
Review of Systems
General: Negative Fever or Chills
All systems: All other systems were reviewed and were negative
Vital Signs
Temp Pulse Resp BP Pulse Ox
98 F 67 16 123/80 96
01/03/24 11:39 01/03/24 11:39 01/03/24 11:39 01/03/24 11:39 01/03/24 11:39
Physical Exam
Physical Exam
Constitutional: No Acute Distress
Cardiovascular: Regular Rate and S1/S2; Negative Murmur or Rub
Pulmonary: Clear and Symmetric; Negative Wheezes, Rales or Rhonchi
Gastrointestinal: Soft, Non Tender, Non Distended and Normal Bowel Sounds
Genito-Urinary: Negative Suprapubic Tenderness
Skin: Warm and Dry; Negative Rash or Jaundice
Lab / Diagnostic Study Results
01/03/24 07:14
01/03/24 07:14
Abs Immat Gran (auto) 0.0 10^3/uL (0-0.05) 01/03/24 07:14
Absolute Neuts (auto) 5.7 10^3/uL (1.4-6.5) 01/03/24 07:14
Absolute Lymphs (auto) 1.0 10^3/uL (1.2-3.4) L 01/03/24 07:14
Absolute Monos (auto) 1.0 10^3/uL (0.1-0.6) H 01/03/24 07:14
Absolute Basos (auto) 0.1 10^3/uL (0-0.2) 01/03/24 07:14
Immature Gran % 0.5 % (0-0.5) 01/03/24 07:14
Neutrophils % 72.2 % (42.2-75.2) 01/03/24 07:14
Lymphocytes % 12.1 % (20.5-51.1) L 01/03/24 07:14
Monocytes % 12.8 % (1.7-9.3) H 01/03/24 07:14
Eosinophils % 1.8 % (0-6) 01/03/24 07:14
Basophils % 0.6 % (0-2) 01/03/24 07:14
Lactic Acid Cancelled 01/01/24 21:15
Microbiology Results
Micro:
01/01/24 17:50 Blood Culture - Preliminary
Blood/Venous No Growth in 24 hours- Final report to follow
01/01/24 17:50 Blood Culture - Preliminary
Blood/Venous No Growth in 24 hours- Final report to follow
Assessment / Plan
UTI due to MDRO Pseudomonas
- my office acquired the 12/27 outpatient urine culture from [facility] - left copy on paper chart to be scanned in
- 100K PSA - intermediate to ciprofloxacin and levofloxacin; S: cefepime, ceftazidime, meropenem
- blood cultures x2 ngtd
- midline placement
- script to dependency case manager
- for two weeks of cefepime 1 gm q8 hour dose selected as it will remain an effective dose with improving renal function
- weekly labs while on home IV antibiotics to be sent to my office
- follow up with PCP
Care Review
Plan reviewed with: Physician (Dr Barboza)
[2024-01-03] MEDS: STERILE WATER FOR INJECTION 10 ML IV ×2 (14:19→21:58)
[2024-01-03] MEDS: MAXIPIME 1000 MG IV ×2 (14:19→21:57)
[2024-01-03 15:16] VITALS: BP 134/82
[2024-01-03] MEDS: FLOMAX 0.4 MG PO (17:02)
[2024-01-03 19:50] VITALS: BP 149/96
[2024-01-03 23:23] VITALS: BP 144/81
[2024-01-04 03:03] VITALS: BP 153/99
[2024-01-04] MEDS: MAXIPIME 1000 MG IV ×2 (05:33→14:18)
[2024-01-04] MEDS: STERILE WATER FOR INJECTION 10 ML IV ×2 (05:34→14:18)
[2024-01-04 06:26] LABS: Blood Urea Nitrogen 26 mg/dl (9-20); Calcium 9.5 mg/dl (8.4-10.2); Carbon Dioxide 30 mmol/L (22-30); Chloride 101 mmol/L (98-107); Estimated Creatinine Clearance 56 ml/min; Glucose 99 mg/dl (70-99); Sodium 139 mmol/L (135-145); eGFR 58.37
[2024-01-04 07:00] VITALS: BP 171/100
--- NOTE | 2024-01-04 08:09 | W.PN.URO.CBU ---
Today's Communication / Plan
-
continue flomax and proscar
continue silva
antibx per ID
outpt f/u for silva removal
Assessment / Plan
-
UTI
BPH
Urinary retention with resultant hydro
plan
continue proscar/flomax and silva
ID has rec iv therapy
at time of discharge- pt should call my office to arrange outpt voiding trial next week
Diagnosis
-
Date of Service: January 04, 2024
-
Patient Diagnosis:
UTI
BPH
Urinary retention
Subjective
-
pt feeling better
urine clear
cr trending down
Objective
-
Vital Signs
Temp Pulse Resp BP Pulse Ox
98.3 F 69 18 153/99 95
01/04/24 03:03 01/04/24 03:03 01/04/24 03:03 01/04/24 03:03 01/04/24 03:03
Intake and Output
01/03/24 01/04/24 01/05/24
06:59 06:59 06:59
Intake Total 2880 / 2880 1560 / 1560
Output Total 3700 / 3700 4750 / 4750
Balance -820 / -820 -3190 / -3190
Intake:
Oral fluids 720 / 720 1560 / 1560
IV fluids (Total) 2160 / 2160
Output:
Liquid stool amount 300 / 300 550 / 550
Colostomy 300 / 300 550 / 550
Urine, Silva 3100 / 3100 4200 / 4200
Urine, Voided 300 / 300
Laboratory Results
01/03/24 07:14
01/04/24 05:38
Review of Systems
-
Constitutional: Fatigue
Respiratory: No Symptoms
Cardiac: No Symptoms
Abdomen/GI: No Symptoms
Physical Exam
-
General - no acute distress
Abdomen - soft, non-tender
Genitalia - normal- silva in place- urine clear
[2024-01-04] MEDS: MAGNESIUM OXIDE 500 MG PO (08:50)
[2024-01-04] MEDS: PROTONIX 40 MG PO (08:50)
[2024-01-04] MEDS: FEOSOL 325 MG PO (08:50)
[2024-01-04] MEDS: PROSCAR 5 MG PO (08:50)
[2024-01-04] MEDS: SPIRIVA RESPIMAT 2.5 MCG 2 PUFF INH (08:50)
[2024-01-04] MEDS: TOPROL XL 100 MG PO (08:50)
--- NOTE | 2024-01-04 09:17 | W.PN.ID1 ---
Date of Service
Date of Service: January 04, 2024
Today's Communication
- for two weeks of cefepime 1 gm q8 hours
- weekly labs while on home IV antibiotics to be sent to my office
- follow up with PCP
Assessment / Plan
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
- my office acquired the 12/27 outpatient urine culture [facility] - left copy on paper chart to be scanned in
- 100K PSA - intermediate to ciprofloxacin and levofloxacin; S: cefepime, ceftazidime, meropenem
- blood cultures x2 ngtd
- midline
- script to case consultant
- for two weeks of cefepime 1 gm q8 hours
- weekly labs while on home IV antibiotics to be sent to my office
- follow up with PCP; stable for dc when home IV antibiotics arranged
Chief Complaint
-: UTI
Subjective / Review of Systems
afebrile
bp stable
no events overnight
Vital Signs / Physical Exam
Vital Signs
Vital Signs
Temp Pulse Resp BP Pulse Ox
98.3 F 67 16 153/99 95
01/04/24 03:03 01/04/24 08:54 01/04/24 08:54 01/04/24 03:03 01/04/24 08:54
Physical Exam
Constitutional: No Acute Distress
Cardiovascular: Regular Rate and S1/S2; Negative Murmur or Rub
Pulmonary: Clear and Symmetric; Negative Wheezes or Rales
Gastrointestinal: Soft, Non Tender, Non Distended and Normal Bowel Sounds
Skin: Warm and Dry; Negative Rash or Jaundice
Lines: Other (midline)
Objective Data
Lab Data
Lab Results
01/03/24 07:14
01/04/24 05:38
Estimated Creat Clear 56 ml/min 01/04/24 05:38
Lactic Acid Cancelled 01/01/24 21:15
Total Bilirubin 0.5 mg/dl (0.2-1.3) 01/01/24 14:01
AST 28 U/L (17-59) 01/01/24 14:01
ALT 18 U/L (0-50) 01/01/24 14:01
Alkaline Phosphatase 57 U/L (38-126) 01/01/24 14:01
Most recent labs reviewed.
Micro Results:
01/01/24 17:50 Blood Culture - Preliminary
Blood/Venous No Growth in 48 hours- Final report to follow
01/01/24 17:50 Blood Culture - Preliminary
Blood/Venous No Growth in 48 hours- Final report to follow
--- NOTE | 2024-01-04 10:50 | CM ---
CM spoke with Laxmi from [facility], per patients insurance, drug copay $94.34 a week, plus $50 co-insurance due every drug dispense, patient has met 233 towards 950 deductible. Patient is current with VN, will update on discharge plan. Laxmi
will come to Hospital for bed side teaching, will deliver supplies this evening for evening dose. Patient seen bedside, agreeable to cost and discharge plan. Midline and update clinicals faxed to [facility]. IMM reviewed, signed, placed in chart.
Patient will transport self home. CM will continue to follow for all discharge planning needs.
Plan; home with [facility], [facility] for IV antibiotics
VN: [phone]
[facility]: [phone]
--- NOTE | 2024-01-04 10:54 | W.PN.HOSP.TC ---
Today's Communication/Plan
-
Dispo home VN. Iv abx set up pending. CM aware
tentative dc later today
Assessment / Plan
Assessment / Plan
#Complicated cystitis in male due to Pseudomonas UTI
-Presented with dysuria, failed outpatient antibiotic course with Bactrim
-Upon arrival had no fever or leukocytosis that was previously treated
-Continue to have dysuria and suprapubic discomfort, developed retention in the ED
-Outpatient urine culture data noted. DC ceftriaxone start patient on cefepime 1 g every 8 based on creatinine clearance. Discussed with ID pharmacist.
-Culture data with intermediate to Cipro and Levaquin. Will ask ID for input
-Trend CBC and temperature curve while here
-s/p midline placement. Plan for IV abx at home. Cm aware.
#Acute kidney injury
#Urine retention
#BPH
-Presented with creatinine 1.3 today
-He was on Bactrim, initially thought this may be pseudo JOSE due to Bactrim
-Did develop urine retention while in the ED, has not required catheterization
-Not currently on any nephrotoxic medications or NSAIDs
-Continue supportive IVF and trend BMP
-Avoid nephrotoxic agents
-Urology following recommended to continue with Celaya catheter upon discharge with outpatient follow-up
#Paroxysmal AF
-Home medications include metoprolol succinate and Eliquis
#HFpEF
-Per history, not currently on any GDMT or loop diuretic regimen
-Suspect this may have been transient and related to volume while in ICU previously
-Remains euvolemic
#PAD
-No known stents or previous bypasses
-Not currently on aspirin or statin
-Likely nonobstructive
#COPD
-Home medications include tiotropium
-No signs of exacerbation at this time
-Remains on room air
#HTN
-Home medications include beta-shahrzad, no first-line agents
-No known history of hypertensive systemic diseases
#NIDDM
-Per history, not currently on any antihyperglycemic regimen
-Likely diet controlled. Op pcp f/u.
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
-Prolonged hospitalization earlier this year
-Suspect atrial fibrillation in etiology
-Remains with end ileostomy
DVT prophylaxis: Home Eliquis
Diet: Regular
CODE STATUS: Full code
Dispo home VN. Iv abx set up pending. CM aware
More than 30 minutes spent in discharge including
Final examination of the patient
Summarizing hospital stay
Instructions for continuing care to all relevant caregivers
Preparation of discharge records, prescriptions, and referral forms
Total time spent (in minutes): 55
Anticipated Discharge: Today
Subjective/Interval History
-
Date of Service: January 04, 2024
feeling better
afebrile
Cr improved
Objective Data
-
Labs:
Laboratory Results
01/04/24
05:38
Sodium 139
Potassium 4.0
Chloride 101
Carbon Dioxide 30
BUN 26 H
Creatinine 1.3
Glucose 99
Calcium 9.5
Vital Signs:
Vital Signs
Temp Pulse Resp BP Pulse Ox
98.2 F 67 16 171/100 95
01/04/24 07:00 01/04/24 08:54 01/04/24 08:54 01/04/24 07:00 01/04/24 08:54
I&O
01/03/24 01/04/24 01/05/24
06:59 06:59 06:59
Intake Total 2880 / 2880 1560 / 1560
Output Total 3700 / 3700 4750 / 4750
Balance -820 / -820 -3190 / -3190
Physical Exam
-
General: Well Nourished, No Apparent Distress and Comfortable
HEENT: Normocephalic, Atraumatic and Moist Mucous Membranes
Respiratory: Clear to Auscultation and Non Labored Respirations
Cardiac: Regular Rhythm and S1/S2; Negative Murmur, Rub or Gallop
GI: Soft, Nontender, Nondistended and Normal Bowel Sounds
Genito-urinary: No Costovertebral Tender and Celaya
Musculoskeletal: No Clubbing, No Cyanosis and No Edema
Skin: Warm, Dry and Normal Turgor; Negative Rash
Neuro: Awake, AO x 3, Nonfocal/Grossly Intact and Central Nerve's Intact
Psych: Calm
[2024-01-04 11:00] VITALS: BP 150/55
--- NOTE | 2024-01-04 12:40 | W.DCSUMMARY ---
Discharge Summary
Discharge Data
Date of Admission: 01/03/24
Date of Discharge: 01/04/24
-
Pending Results: No
Hospital Course
73 male past medical history of BPH, atrial fibrillation, chronic HFpEF, COPD, presents with complaint of dysuria. Patient was eval by outpatient primary doctor who recommended patient to be sent to the hospital for intravenous antibiotics.
Patient was also taking Bactrim prior to arrival. Patient was also found to acute kidney injury. Patient also with urinary retention. Patient was evaluated by urology. Patient with urinary retention of 1200 cc and Celaya catheter was placed.
Patient was continued on Flomax and Proscar. Dr. Berkowitz recommend patient to follow-up outpatient for voiding trial next week. Patient had repeat urine culture and was switched to cefepime and then to ceftriaxone on hospital admission. Upon
reevaluation of urine culture it was noted patient with intermediate to quinolones and resistant to ceftriaxone. Sensitive to cefepime. I discussed case with infectious disease pharmacist and based on patient creatinine clearance start patient on
cefepime 1 g every 8 hours. Infectious disease was also consulted. Infectious disease recommended patient to be placed on midline with 2 weeks of IV cefepime upon discharge. Patient creatinine slowly improved. IV fluids were discontinued.
Creatinine down trended to 1.3. Patient received midline and case management consultation was placed. Home VN will be set up.
Discharge Plan
-
Patient Disposition: Home with Home Care
Discharge Diagnosis/Procedures: Urinary tract infection due to resistant Pseudomonas
Acute kidney injury
Urinary retention status post Celaya catheter placement
Condition: Fair
Diet: As tolerated
Activity: As tolerated
Driving Restrictions: As prior to admission
Blood Work: BMP in 7-10 days via primary doctor.
Other Services: VN
Activity Restrictions/Additional Instructions:
Please call office for voiding trial next week.
Instructions: How to Care for Your Celaya Catheter, Male
Referrals:
Javier Herrera DO [Family Provider] - in less than 1 week
Mike Berkowitz Jr., MD [Active] - in one week (call the office to arrange outpatient voiding trial next week)
Prescriptions:
New
cefepime 1 gram Recon Soln
1,000 mg IV Q8H 14 Days Qty: 72 0RF
Continued
melatonin 3 mg Tablet
3 mg PO HSPRN PRN (Reason: sleep) 30 Days Qty: 30 0RF
tamsulosin 0.4 mg capsule
0.4 mg PO QPM
pantoprazole 40 mg Tablet,Delayed Release (Dr/Ec)
40 mg PO DAILY 30 Days Qty: 30 0RF
magnesium oxide 500 mg magnesium Tablet
500 mg PO BID 30 Days Qty: 60 0RF
finasteride 5 mg Tablet
5 mg PO DAILY 30 Days Qty: 30 0RF
metoprolol succinate 100 mg Tablet Extended Release 24 Hr
100 mg PO DAILY 30 Days Qty: 30 0RF
ferrous sulfate [FeroSul] 325 mg (65 mg iron) Tablet
325 mg PO DAILY 30 Days Qty: 30 0RF
Patient Comments:
For 30 days
Spiriva Respimat 2.5 mcg/actuation Mist
2 puff inhalation R DAILY Qty: 4 0RF
Eliquis 5 mg Tablet
5 mg PO BID Qty: 60 0RF
Discontinued
sulfamethoxazole-trimethoprim 800-160 mg tablet
1 tab PO BID
Discharge Orders:
Discharge Patient (As Directed); Ordered 01/04/24
Ordered By: Eber Madrid
Discharge Date and Time
Print Language: SWAZI
[2024-01-04 15:00] VITALS: BP 145/92
== END 2024-01-04 16:51 | disposition home health service (06) | DRG 690 ==
LOC: 4 WEST ACU 11:38
PROVIDERS: Emergency Medicine; Registered Nurse; ADMITTING PHYSICIAN Internal Medicine; ATTENDING PHYSICIAN Hospitalist; CONSULT PHYSICIAN Specialist; CONSULT PHYSICIAN Student in an Organized Health Care Education/Training Program; EMERGENCY PHYSICIAN Emergency Medicine; FAMILY PHYSICIAN Family Medicine
DX: N13.6 Pyonephrosis (principal); I50.32 Chronic diastolic (congestive) heart failure; Z16.24 Resistance to multiple antibiotics; Z16.19 Resistance to other specified beta lactam antibiotics; Z16.23 Resistance to quinolones and fluoroquinolones; R30.0 Dysuria; N17.9 Acute kidney failure, unspecified; E11.51 Type 2 diabetes mellitus with diabetic peripheral angiopathy without gangrene; E78.5 Hyperlipidemia, unspecified; N32.89 Other specified disorders of bladder; B96.5 Pseudomonas (aeruginosa) (mallei) (pseudomallei) as the cause of diseases classified elsewhere; R33.8 Other retention of urine; J44.9 Chronic obstructive pulmonary disease, unspecified; D63.8 Anemia in other chronic diseases classified elsewhere; K21.9 Gastro-esophageal reflux disease without esophagitis; G47.00 Insomnia, unspecified; N40.1 Benign prostatic hyperplasia with lower urinary tract symptoms; I11.0 Hypertensive heart disease with heart failure; I48.0 Paroxysmal atrial fibrillation; Z93.2 Ileostomy status; Z90.49 Acquired absence of other specified parts of digestive tract; Z87.891 Personal history of nicotine dependence; Z88.0 Allergy status to penicillin; Z79.01 Long term (current) use of anticoagulants; Z87.19 Personal history of other diseases of the digestive system
CPT/HCPCS: 76770; 80048; 80053; 83605; 85025; 85027; 87040; 93005; 94640; 99285

== ENCOUNTER 2024-03-26 06:24 | Day surgery (SDC) | payer OTHER, SELFPAY ==
[2024-03-19 13:28] VITALS: BMI 25.2
[2024-03-26] VITALS (16 sets, daily range): BP systolic 110–189; BP diastolic 69–127; BMI 25.2
[2024-03-26 08:07] LABS: Glucose - Point of Care 106 mg/dl (70-99)
[2024-03-26] MEDS: NORMOSOL-R/PLASMALYTE-A 1000 IV (08:07)
[2024-03-26] MEDS: APRESOLINE 10 MG IV (08:46)
--- NOTE | 2024-03-26 10:17 | W.PN.ADMIT ---
Progress Note - Admit
Progress Note - Admit
pt underwent turbt/turp
to pacu with cbi
continue levaquin pending ucx
hold eliquis for now
[2024-03-26 11:36] LABS: Hematocrit 41.4 % (39.0-52.0); Hemoglobin 13.6 g/dL (13.0-18.0); Mean Corp Hgb Conc. 32.9 g/dL (33.0-37.0); Mean Corpuscular Volume 91.2 fL (80.0-94.0); Mean Platelet Volume 8.9 fL (7.4-10.4); Platelet Count 203 10^3/uL (130-400); Red Blood Cell Count 4.54 10^6/uL (4.70-6.10); White Blood Cell Count 11.8 10^3/uL (4.8-10.8)
[2024-03-26 11:51] LABS: Blood Urea Nitrogen 21 mg/dl (9-20); Calcium 9.3 mg/dl (8.4-10.2); Carbon Dioxide 23 mmol/L (22-30); Chloride 100 mmol/L (98-107); Estimated Creatinine Clearance 105 ml/min; Glucose 111 mg/dl (70-99); Potassium 4.1 mmol/L (3.5-5.1); Sodium 136 mmol/L (135-145); eGFR > 60.00
[2024-03-26] MEDS: NSS 1000 IV (13:40)
--- NOTE | 2024-03-26 15:18 | PTCARENOTE ---
Rubber band traction removed at 1500, urine blood tinged, CBI increased. Pt reports no discomfort, VSS.
[2024-03-26] MEDS: FLOMAX 0.4 MG PO (17:06)
[2024-03-26] MEDS: MAGNESIUM OXIDE 500 MG PO (20:40)
[2024-03-26] MEDS: TOPROL XL 25 MG PO (20:40)
[2024-03-27] MEDS: NSS 1000 IV (02:06)
[2024-03-27 03:51] VITALS: BP 128/78
[2024-03-27 06:46] VITALS: BP 131/83
[2024-03-27 06:52] LABS: Hematocrit 37.2 % (39.0-52.0); Hemoglobin 12.4 g/dL (13.0-18.0); Mean Corp Hgb Conc. 33.3 g/dL (33.0-37.0); Mean Corpuscular Volume 89.9 fL (80.0-94.0); Mean Platelet Volume 9.4 fL (7.4-10.4); Platelet Count 201 10^3/uL (130-400); Red Blood Cell Count 4.14 10^6/uL (4.70-6.10); Red Cell Dist. Width 13.2 % (11.5-14.5); White Blood Cell Count 11.2 10^3/uL (4.8-10.8)
[2024-03-27 07:10] LABS: Blood Urea Nitrogen 18 mg/dl (9-20); Calcium 9.2 mg/dl (8.4-10.2); Carbon Dioxide 27 mmol/L (22-30); Chloride 99 mmol/L (98-107); Estimated Creatinine Clearance 105 ml/min; Glucose 91 mg/dl (70-99); Potassium 3.8 mmol/L (3.5-5.1); Sodium 136 mmol/L (135-145); eGFR > 60.00
[2024-03-27] MEDS: SPIRIVA RESPIMAT 2.5 MCG 2 PUFF INH (07:14)
--- NOTE | 2024-03-27 07:49 | W.PN.URO.CBU ---
Today's Communication / Plan
-
routine post TURP care
Assessment / Plan
-
s/p TURP
wean cbi- off at midnight
UOOB/regular diet
continue levaquin- await ucx
tentative plan for discharge tomorrow with silva for outpt TOV
continue to hold eliquis for now
Diagnosis
-
Date of Service: March 27, 2024
-
Patient Diagnosis:
urinary retention
hx of UTI
Post Op Day:
TURP 2/4
Subjective
-
pt stable
urine clearing
no fevers/wbc stable/urine cx pending
Objective
-
Vital Signs
Temp Pulse Resp BP Pulse Ox
97.7 F 54 16 131/83 96
03/27/24 06:46 03/27/24 07:15 03/27/24 07:15 03/27/24 06:46 03/27/24 06:46
Intake and Output
03/26/24 03/27/24 03/28/24
06:59 06:59 06:59
Intake Total 2440 / 2440
Output Total 1525 / 1525
Balance 915 / 915
Intake:
Oral fluids 1000 / 1000
IV fluids (Total) 1440 / 1440
Output:
Liquid stool amount
Ileostomy
True Urine Output from CBI 1500 / 1500
Laboratory Results
03/27/24 05:24
03/27/24 05:24
Review of Systems
-
Constitutional: Fatigue
Respiratory: No Symptoms
Cardiac: No Symptoms
Abdomen/GI: No Symptoms
Physical Exam
-
General - no acute distress
Abdomen - soft, non-tender- ostomy
Genitalia - normal- silva in place
Neuro - AOx3, no motor deficits
Extremities - no clubbing, no cyanosis, no edema
[2024-03-27] MEDS: LEVAQUIN 100 IV (08:49)
[2024-03-27] MEDS: FEOSOL 325 MG PO (08:49)
[2024-03-27] MEDS: PROSCAR 5 MG PO (08:49)
[2024-03-27] MEDS: TOPROL XL 25 MG PO ×2 (08:49→20:17)
[2024-03-27] MEDS: MAGNESIUM OXIDE 500 MG PO ×2 (08:49→20:17)
[2024-03-27] MEDS: PROTONIX 40 MG PO (08:49)
--- NOTE | 2024-03-27 11:15 | CM ---
Patient seen at bedside.
IA Completed
Lives with in a 2 story home, 1 step to enter, stair glide for second floor
PLOF: Ambulates without device
DME: Walker, stair glide, silva supplies, ostomy supplies (does not recall vendor)
Declines VN as he states he is independent with ostomy & silva
Has had [facility] in past/
Denies insecurities
PCP: Javier Herrera
Pharmacy: [address], [place]
PLAN: home, no anticipated needs - declines VN
family to transport
[2024-03-27 11:33] VITALS: BP 135/89
[2024-03-27 14:29] VITALS: BP 128/75
[2024-03-27] MEDS: FLOMAX 0.4 MG PO (17:45)
[2024-03-27 23:15] VITALS: BP 130/84
[2024-03-28] MEDS: SPIRIVA RESPIMAT 2.5 MCG 2 PUFF INH (07:53)
[2024-03-28 08:30] VITALS: BP 155/98
[2024-03-28] MEDS: PROSCAR 5 MG PO (08:58)
[2024-03-28] MEDS: LEVAQUIN 100 IV (08:58)
[2024-03-28] MEDS: TOPROL XL 25 MG PO (08:58)
[2024-03-28] MEDS: MAGNESIUM OXIDE 500 MG PO (08:58)
[2024-03-28] MEDS: PROTONIX 40 MG PO (08:58)
[2024-03-28] MEDS: FEOSOL 325 MG PO (08:58)
--- NOTE | 2024-03-28 12:36 | W.PN.URO.CBU ---
Today's Communication / Plan
-
discharge
Assessment / Plan
-
s/p TURP
urine clear
for discharge today on levaquin
silva out next week and then resume eliquis
Diagnosis
-
Date of Service: March 28, 2024
-
Patient Diagnosis:
urinary retention
hx of UTI
Post Op Day:
TURP 2/4
Subjective
-
pt doing well
urine yellow off cbi
ucx mixed angelika- not pseudomonas
Objective
-
Vital Signs
Temp Pulse Resp BP Pulse Ox
98.3 F 63 14 155/98 96
03/27/24 23:15 03/28/24 08:58 03/28/24 07:57 03/28/24 08:58 03/28/24 07:57
Intake and Output
03/27/24 03/28/24 03/29/24
06:59 06:59 06:59
Intake Total 2440 / 2440 1380 / 1380
Output Total 1525 / 1525 1450 / 1450
Balance 915 / 915 -70 / -70
Intake:
Oral fluids 1000 / 1000 900 / 900
IV fluids (Total) 1440 / 1440 480 / 480
Output:
Liquid stool amount
Ileostomy
True Urine Output from CBI 1500 / 1500 1450 / 1450
Laboratory Results
03/27/24 05:24
03/27/24 05:24
Review of Systems
-
Constitutional: No Symptoms
Respiratory: No Symptoms
Cardiac: No Symptoms
Abdomen/GI: No Symptoms
Physical Exam
-
General - no acute distress
Abdomen - soft, non-tender
Genitalia - normal- silva in place
Skin - warm & dry with no rash
Neuro - AOx3, no motor deficits
Extremities - no clubbing, no cyanosis, no edema
--- NOTE | 2024-03-28 12:38 | W.DS.TRANS ---
DC Summary - [facility]
-
Discharge Instructions:
Sleep Apnea Risk Intermediate
Discharge Diagnosis/Procedures you had a bladder biopsy and transurethral
resection of the prostate
Diet No restrictions
Activity No strenuous activity
Additional Activity no lifting over 10lbs for 7 days
Driving Restrictions No driving for 1 week
Bathing Restrictions OK to Shower
Instructions:
Stand-Alone Forms:
Changes to Home Medications: No
Discharge Medications:
DC Medications w/original date entered in [employer]
finasteride 5 mg tablet 5 mg PO DAILY Urinary issue 30 days #30 tabs 11/22/23
magnesium oxide 500 mg PO BID supplement 30 days #60 tabs 11/22/23
pantoprazole 40 mg tablet,delayed release 40 mg PO DAILY GERD 30 days #30 tabs 11/22/23
apixaban 5 mg tablet (Eliquis) 5 mg PO BID Blood Clot Prevention/Tx #60 tabs 11/23/23
ferrous sulfate 325 mg (65 mg iron) tablet (FeroSul) 325 mg PO DAILY supplement 30 days #30 tabs 11/23/23
tiotropium bromide 2.5 mcg/actuation mist for inhalation (Spiriva Respimat) 2 puff inhalation R DAILY Lung/breathing issues #4 grams 11/23/23
tamsulosin 0.4 mg capsule 0.4 mg PO QPM Urinary Issue 01/01/24
metoprolol succinate 25 mg tablet,extended release 24 hr 25 mg PO BID 03/20/24
levofloxacin 500 mg tablet 500 mg PO DAILY #7 tabs 03/28/24
Home Medication Changes
Pending Results: Yes
Additional Pending Results:
pathology results- dr downing will review when back
--- NOTE | 2024-03-28 12:41 | CM ---
MD entered order for discharge.
Spoke with pt he said he was ready for discharge.
Pt is comfortable with self care of ileostomy and [facility] care.
He declined VN .
His George will drive him home.
PLAN Home no needs
[2024-03-28 13:45] VITALS: BP 172/106
--- NOTE | 2024-03-28 14:04 | PTCARENOTE ---
pt prepared for discharge -verbalized understanding and demonstrated proper technique to care for silva leg bag upon discharge. pt stated he had a foely catheter at home in the past. denies need for visiting nurses. VS: 98.1-74-16-172/106, pox
99% on RA. Dr Berkowitz made aware and ok to proceed with pt's discharge.
== END 2024-03-28 14:16 | disposition home or self-care (01) ==
LOC: SDS 06:24
PROVIDERS: ATTENDING PHYSICIAN Specialist; FAMILY PHYSICIAN Family Medicine
DX: N40.1 Benign prostatic hyperplasia with lower urinary tract symptoms (principal); D49.4 Neoplasm of unspecified behavior of bladder; R33.8 Other retention of urine; N39.0 Urinary tract infection, site not specified; B95.7 Other staphylococcus as the cause of diseases classified elsewhere
CPT/HCPCS: 52601; 52234; 88305; 88307; 36415; 80048; 82962; 85027; 86850; 86900; 86901; 87086; 94640

== ENCOUNTER → 2024-05-01 07:09 | Outpatient (REF) | payer OTHER, SELFPAY ==
[2024-05-01 08:34] LABS: Blood Urea Nitrogen 20 mg/dl (9-20); Calcium 10.4 mg/dl (8.4-10.2); Carbon Dioxide 32 mmol/L (22-30); Chloride 101 mmol/L (98-107); Glucose 115 mg/dl (70-99); Potassium 4.8 mmol/L (3.5-5.1); Sodium 140 mmol/L (135-145); eGFR > 60.00
[2024-05-01 10:43] LABS: Glycohemoglobin (HgbA1c) 6.1 % (4.0-5.6)
== END ==
LOC: REG 07:09
PROVIDERS: ATTENDING PHYSICIAN Family Medicine
DX: E11.69 Type 2 diabetes mellitus with other specified complication (principal); I10 Essential (primary) hypertension
CPT/HCPCS: 36415; 80048; 83036

== ENCOUNTER → 2024-05-13 11:45 | Outpatient (REF) | payer OTHER, SELFPAY | LOC: RAD 11:45 | PROVIDERS: ATTENDING PHYSICIAN Internal Medicine Gastroenterology; FAMILY PHYSICIAN Family Medicine | DX: R18.8 Other ascites (principal) | CPT/HCPCS: 74170; Q9967 ==

== ENCOUNTER → 2024-10-23 06:51 | Outpatient (REF) | payer OTHER, SELFPAY ==
[2024-10-23 07:53] LABS: Hematocrit 45.9 % (39.0-52.0); Hemoglobin 14.8 g/dL (13.0-18.0); Mean Corp Hgb Conc. 32.2 g/dL (33.0-37.0); Mean Corpuscular Volume 90.9 fL (80.0-94.0); Nucleated Red Blood Cells % 0 % (-); Platelet Count 209 10^3/uL (130-400); Red Cell Dist. Width 12.3 % (11.5-14.5)
[2024-10-23 08:47] LABS: TSH 1.41 uIU/ml (0.47-4.68)
[2024-10-23 08:48] LABS: Microalb - Urine Creatinine 88.900 mg/dl
[2024-10-23 08:51] LABS: Microalbumin, Random Urine 1.9 mg/dl (0.6-1.7)
[2024-10-23 09:51] LABS: ALT (SGPT) 18 U/L (0-50); AST (SGOT) 24 U/L (17-59); Albumin 4.9 g/dl (3.5-5.0); Alkaline Phosphatase 76 U/L (38-126); Blood Urea Nitrogen 19 mg/dl (9-20); Calcium 9.9 mg/dl (8.4-10.2); Carbon Dioxide 31 mmol/L (22-30); Chloride 101 mmol/L (98-107); Glucose 110 mg/dl (70-99); HDL Cholesterol 54 mg/dl; LDL Cholesterol, Calculated 142 mg/dl; Potassium 4.3 mmol/L (3.5-5.1); Sodium 139 mmol/L (135-145); Total Protein 7.9 g/dl (6.3-8.2); Very Low Density Lipoprotein 24 mg/dl (0-30); eGFR > 60.00
[2024-10-23 11:10] LABS: Glycohemoglobin (HgbA1c) 6.3 % (4.0-5.6)
== END ==
LOC: REG 06:51
PROVIDERS: ATTENDING PHYSICIAN Family Medicine
DX: J44.9 Chronic obstructive pulmonary disease, unspecified (principal); I10 Essential (primary) hypertension; I48.21 Permanent atrial fibrillation; E11.69 Type 2 diabetes mellitus with other specified complication; E11.51 Type 2 diabetes mellitus with diabetic peripheral angiopathy without gangrene; E78.5 Hyperlipidemia, unspecified
CPT/HCPCS: 36415; 80053; 80061; 82043; 82570; 83036; 84443; 85025

== ENCOUNTER 2024-12-09 16:51 | Emergency (ER) | payer OTHER, SELFPAY ==
[2024-12-09] MEDS: ANCEF 10 IV (17:51)
[2024-12-09 18:05] VITALS: BP 170/100
--- NOTE | 2024-12-09 19:42 | ED.GENMED ---
History of Present Illness
General
Chief Complaint: Skin Surface Trauma
Source: patient and spouse
Exam Limitations: none
Time Seen by Provider: 12/09/24 17:08
Nursing documentation reviewed up to this point in time: agreed with
History of Present Illness
History of Present Illness:
74-year-old male past medical history of A-fib currently on Eliquis, presenting to the emergency department today with concerns of amputation of his left index finger and middle finger from a table saw prior to arrival. Claims this is immediately
blood bleeding controlled with pressure. Immediately came to the ER. Denies any additional concerns otherwise. He is unsure when his last tetanus shot was.
Past History
Past History
ED Past Medical History: Arrthythmia (Atrial fibrillation), HTN and NIDDM
ED Past Surgical History: Appendectomy (At age 7)
Social History
Tobacco: Non-smoker
Alcohol: None
Drug: None
Personal:
Living: with family
Employment: Retired
Family History
Family History: Other (Noncontributory)
Review of Systems
Review of Systems
Allergies reviewed?: Yes
All Other Systems: ROS reviewed and negative except as documented in HPI and ROS
Phy Exam
Physical Exam
Physical Exam:
GENERAL: Alert , in no apparent distress
EYE: pupils equal and reactive
NECK: Supple, no significant adenopathy.
ENT: o/p clr, mmm.
CARDIAC: Regular rate and rhythm .
LUNGS: Clear breath sounds bilaterally, no acute respiratory distress, no wheezes/rales/rhonchi
ABDOMEN: Soft, without focal tenderness, no r/g, no cvat
NEUROLOGICAL: Alert and oriented, no focal neuro deficits
SKIN: Warm and dry, skin intact.
MUSCULOSKELETAL: Fingertip avulsion to the left index finger just distal to the DIP, fingertip avulsion distal to the nailbed of the middle of the left hand. No foreign body seen. No edema, well perfused.
PSYCH: Normal and appropriate interaction.
Course
Orders/Labs/Results
Orders:
Orders
12/09/24 17:03
CR Hand - Left Min 3 Views Urgent
Reason For Exam: 2nd finger amputation
12/09/24 17:17
CeFAZolin 2 GRAM [Ancef] 2 grams in 10 ml IV NOW
12/09/24 19:42
Tetanus/Diphth/Acelpertussis [Adacel] 0.5 ml IM .ONCE ONE
Vital Signs
Initial and Last Documented VS:
Initial Vital Signs
Temp Pulse Resp Pulse Ox
98.1 F 116 16 97
12/09/24 16:54 12/09/24 16:54 12/09/24 16:54 12/09/24 16:54
Last Documented Vital Signs
Temp Pulse Resp BP Pulse Ox
98.1 F 90 16 170/100 97
12/09/24 16:54 12/09/24 18:05 12/09/24 16:54 12/09/24 18:05 12/09/24 16:54
Procedures
Laceration Closure
Left Distal Second Finger:
Status of Wound: clean
Size of Wound in cm: 2.5
Description of Wound Edges: other (Fingertip avulsion)
Preparation: cleaned with saline
Anesthesia: Marcaine
Revision/Debridement: minor revision
Wound exploration: explored to base- no FB and no tendon involvement
Type of Closure: single layer closure
Skin Closure Material: other (4-0 Monocryl)
Number of sutures: 7
Left Distal Third Finger:
Status of Wound: clean
Size of Wound in cm: 2.5
Description of Wound Edges: ragged
Preparation: cleaned with saline
Anesthesia: Digital-Regional and other (Bupivacaine)
Revision/Debridement: routine- no revision
Wound exploration: explored to base- no FB
Type of Closure: single layer closure and interrupted sutures
Number of sutures: 5
Additional information:
4-0 Monocryl
MDM/Problems Addressed
MDM/Problems Addressed:
74-year-old male presenting to the emergency department today with concerns of fingertip avulsion from tablesaw prior to arrival. He was given an updated tetanus shot and started on IV antibiotics. Case discussed with orthopedics recommending
distal closure and close hand follow-up. This was thoroughly cleaned closed with a total of 12 dissolving stitches 7 to the index finger and 5 to the middle finger. Return precautions were given.
*Pulse Oximetry
SaO2: 97
Oxygen Mode of Delivery: Room air
Patient hypoxic: no (97)
*Critical Care Note
Total Time (30-74mins, 75-104mins- exclusive of procedures): Not Applicable
ED Attending Note
-
Portions of this chart may have been created with voice recognition software.� Occasional wrong word or��sound alike� substitutions may have occurred due to the inherent limitations of voice recognition software.
Discharge Plan
Departure
Patient Disposition: Home (Routine Discharge)
Date of Disposition: 12/09/24
Time of Disposition: 19:42
Patient with high blood pressure during this ER visit?: No
Condition: Good
Covid-19: Not Applicable
Discharge Problem:
Avulsion of finger tip
Instructions: Wound Care (DC), Laceration Repair With Stitches (DC), Amputation of the Finger or Fingertip (DC)
Prescriptions:
New
cephalexin 500 mg tablet
500 mg PO QID 5 Days Qty: 20 0RF
No Action
tamsulosin 0.4 mg capsule
0.4 mg PO QPM
metoprolol succinate 25 mg Tablet Extended Release 24 Hr
25 mg PO BID
levofloxacin 500 mg tablet
500 mg PO DAILY Qty: 7 0RF
pantoprazole 40 mg Tablet,Delayed Release (Dr/Ec)
40 mg PO DAILY 30 Days Qty: 30 0RF
magnesium oxide 500 mg magnesium Tablet
500 mg PO BID 30 Days Qty: 60 0RF
finasteride 5 mg Tablet
5 mg PO DAILY 30 Days Qty: 30 0RF
ferrous sulfate [FeroSul] 325 mg (65 mg iron) Tablet
325 mg PO DAILY 30 Days Qty: 30 0RF
Patient Comments:
For 30 days
Spiriva Respimat 2.5 mcg/actuation Mist
2 puff inhalation R DAILY Qty: 4 0RF
Eliquis 5 mg Tablet
5 mg PO BID Qty: 60 0RF
Referrals:
Javier Herrera DO [Family Provider, Family Practice]
Isaías Gann MD [Active, Orthopedics] - Follow up in 2-3 days
Edinson Nowak MD [Active, Orthopedics] - Follow up in 2-3 days
Activity Restrictions/Additional Instructions:
You came to the emergency department today after a fingertip avulsion. This was repaired with 7 dissolvable stitches to your index finger and 5 to your middle finger. Please keep the area clean at the prescribed antibiotic 4 times daily for the
next 5 days and follow-up very closely hand doctor in the next few days. Return for any worsening, new or concerning symptoms.
Interventions
Interventions:
*Risk Screen - Suicide Last Done: 12/09/24 16:54
*General Assessment Last Done: 12/09/24 18:04
*Neglect/Abuse Screening Last Done: 12/09/24 16:54
*ED- Fall Risk Assessment Last Done: 12/09/24 18:05
ED-Skin Assessment Last Done: 12/09/24 18:02
Discharge Date and Time
Print Language: SOUTH AFR[place]
[2024-12-09] MEDS: ADACEL 0.5 ML IM (19:47)
== END 2024-12-09 20:00 | disposition home or self-care (01) ==
LOC: EMR 16:51
PROVIDERS: EMERGENCY PHYSICIAN Emergency Medicine; FAMILY PHYSICIAN Family Medicine
DX: S61.201A Unspecified open wound of left index finger without damage to nail, initial encounter (principal); S61.203A Unspecified open wound of left middle finger without damage to nail, initial encounter; E11.9 Type 2 diabetes mellitus without complications; I48.91 Unspecified atrial fibrillation; I10 Essential (primary) hypertension; Z23 Encounter for immunization; Z79.01 Long term (current) use of anticoagulants; W27.0XXA Contact with workbench tool, initial encounter
CPT/HCPCS: 99284; 12002; 96374; 90471; 73130; 90715

== ENCOUNTER 2024-12-10 10:10 | Emergency (ER) | payer OTHER, SELFPAY ==
[2024-12-10 10:22] VITALS: BP 163/111
[2024-12-10 10:26] VITALS: BP 164/110
--- NOTE | 2024-12-10 11:38 | ED.GENMED ---
History of Present Illness
General
Chief Complaint: Wound Check/Suture Removal
Time Seen by Provider: 12/10/24 11:15
History of Present Illness
History of Present Illness:
see MDM
Past History
Past History
ED Past Medical History: Arrthythmia (Atrial fibrillation), HTN and NIDDM
ED Past Surgical History: Appendectomy (At age 7)
Social History
Tobacco: Non-smoker
Alcohol: None
Drug: None
Personal:
Living: with family
Employment: Retired
Family History
Family History: Other (Noncontributory)
Phy Exam
Physical Exam
Physical Exam:
see MDM
Course
Vital Signs
Initial and Last Documented VS:
Initial Vital Signs
Temp Pulse Resp BP Pulse Ox
37.1 C 89 18 163/111 97
12/10/24 10:22 12/10/24 10:22 12/10/24 10:22 12/10/24 10:22 12/10/24 10:22
Last Documented Vital Signs
Temp Pulse Resp BP Pulse Ox
37.1 C 94 18 178/109 99
12/10/24 10:22 12/10/24 12:26 12/10/24 10:22 12/10/24 12:27 12/10/24 12:26
MDM/Problems Addressed
Differential Diagnosis Includes:
see MDM
MDM/Problems Addressed:
Note:
CHIEF COMPLAINT(S)
Lacerations and potential soft tissue injury to two fingers as a result of an accident with a table saw.
HISTORY OF PRESENT ILLNESS
The patient is a 74-year-old male right hand who presented with lacerations and trauma to two fingers incurred during a woodworking accident at home involving a table saw yesterday. The incident occurred while the patient was pushing a thin piece of
wood that started to flutter; he instinctively placed his hand on it and subsequently came into contact with the saw blade.
The lacerations were treated with sutures the previous day, he had x-rays showing distal fingertip amputations of the index and middle fingers.. The patient denies significant pain, reporting that it was more intense when the injuries were fresh. He
experiences mild discomfort which he attributes to the natural healing process, compounded potentially by his prescribed anticoagulation therapy (apixaban) for atrial fibrillation. There is mild, persistent oozing, which is anticipated given his
medication.
The patient did not take his prescribed apixaban the night before or the morning of this visit. He reports no other significant medical complications or a history of diabetes. He suspects he may have aggravated the healing fingers in his sleep but
has no clear memory of such an occurrence.
Patient has an appointment to see a hand surgeon tomorrow.
MEDICATIONS
The patient is currently taking apixaban (Eliquis) for atrial fibrillation, noting a dosage of 8.5 mg, which he describes as his usual regimen taken twice a day.
PHYSICAL EXAM
Dressings removed from his index fingers of his left hand and middle finger and he had some dried blood on the gauze but without any oozing or active bleeding, sutures are in place, there is macerated tissue but it appears perfused, normal cap
refill, temperature normal, patient has some tenderness but can range the fingers
- Nursing notes reviewed and vital signs reviewed.
PLAN
1. Educate the patient on wound care: keep the injury clean, elevate the hand, and avoid unnecessary stress or movement of the affected fingers.
2. Discontinue the use of anticoagulant medication temporarily and monitor for excessive bleeding.
3. Prescribe a limited supply of opioid pain medication with instructions to use only if acetaminophen is insufficient for pain control, emphasizing caution due to anticoagulation therapy.
4. Advise scheduling a follow-up appointment with a hand specialist for further evaluation and management.
DIFFERENTIAL DIAGNOSIS
The Differential Diagnosis includes, in no particular order and is not limited to:
1. Laceration with soft tissue injury
2. Tendon injury
3. Bone fracture
4. Nail bed injury
5. Infection
6. Foreign body retention in the wound
7. Nerve injury
8. Compartment syndrome
9. Hematoma formation due to anticoagulant use
10. Delayed wound healing
74-year-old male here for wound check after he had a partial amputation of both his index and middle fingertips yesterday which was repaired with sutures here. Patient has an appointment with a hand surgeon tomorrow. When he woke up this morning
the bandages had some oozing blood underneath, it did not saturate or soaked through but the patient was concerned and was told to come back
After removing the bandages patient has no active bleeding. Suspect just some oozing overnight. He is on Eliquis but held it yesterday and today. I will irrigate and redress these wounds. He will be seen by hand surgery tomorrow which is
reassuring. Return precautions given. I will give him a short course of oxycodone for pain relief, he is in moderate amount of pain now
*Pulse Oximetry
SaO2: 97
Oxygen Mode of Delivery: Room air
Patient hypoxic: no (97)
*Critical Care Note
Total Time (30-74mins, 75-104mins- exclusive of procedures): Not Applicable
ED Attending Note
-
Portions of this chart may have been created with voice recognition software.� Occasional wrong word or��sound alike� substitutions may have occurred due to the inherent limitations of voice recognition software.
Discharge Plan
Departure
Patient Disposition: Home (Routine Discharge)
Date of Disposition: 12/10/24
Time of Disposition: 12:04
Patient with high blood pressure during this ER visit?: Yes
Covid-19: Not Applicable
Discharge Problem:
Encounter for re-check of laceration wound
Instructions: Wound Care (DC), BLOOD PRESSURE
Prescriptions:
New
oxycodone 5 mg tablet
5 mg PO Q8H PRN (Reason: Pain) Qty: 4 0RF
No Action
tamsulosin 0.4 mg capsule
0.4 mg PO QPM
metoprolol succinate 25 mg Tablet Extended Release 24 Hr
25 mg PO BID
levofloxacin 500 mg tablet
500 mg PO DAILY Qty: 7 0RF
cephalexin 500 mg tablet
500 mg PO QID 5 Days Qty: 20 0RF
pantoprazole 40 mg Tablet,Delayed Release (Dr/Ec)
40 mg PO DAILY 30 Days Qty: 30 0RF
magnesium oxide 500 mg magnesium Tablet
500 mg PO BID 30 Days Qty: 60 0RF
finasteride 5 mg Tablet
5 mg PO DAILY 30 Days Qty: 30 0RF
ferrous sulfate [FeroSul] 325 mg (65 mg iron) Tablet
325 mg PO DAILY 30 Days Qty: 30 0RF
Patient Comments:
For 30 days
Spiriva Respimat 2.5 mcg/actuation Mist
2 puff inhalation R DAILY Qty: 4 0RF
Eliquis 5 mg Tablet
5 mg PO BID Qty: 60 0RF
Referrals:
Javier Herrera DO [Family Provider, Family Practice]
Activity Restrictions/Additional Instructions:
Keep the dressing in place until tomorrow when you are seen by the hand surgeon
It may ooze. As long as it is not soaking through where you are having to change dressings that is okay. Return for any concerns. You can take a dose of oxycodone as needed for severe pain, you can also continue to take Tylenol 3 times a day
Interventions
Interventions:
*Risk Screen - Suicide Last Done: 12/10/24 10:22
*General Assessment Last Done: 12/10/24 12:32
*Neglect/Abuse Screening Last Done: 12/10/24 10:22
*ED COVID-19 Vaccine History Last Done: 12/10/24 10:26
*ED Influenza Vaccine History Last Done: 12/10/24 10:25
*Nursing Disposition Last Done: 12/10/24 12:32
ED-Skin Assessment Last Done: 12/10/24 12:27
Discharge Date and Time
Discharge Date/Time: 12/10/24 12:43
Print Language: ROMANSH
[2024-12-10 12:27] VITALS: BP 178/109
== END 2024-12-10 12:43 | disposition home or self-care (01) ==
LOC: EMR 10:10
PROVIDERS: EMERGENCY PHYSICIAN Emergency Medicine; FAMILY PHYSICIAN Family Medicine
DX: Z48.00 Encounter for change or removal of nonsurgical wound dressing (principal); E11.9 Type 2 diabetes mellitus without complications; I48.91 Unspecified atrial fibrillation; I10 Essential (primary) hypertension; Z79.01 Long term (current) use of anticoagulants
CPT/HCPCS: 99281

== ENCOUNTER → 2024-12-17 12:25 | Outpatient (REF) | payer OTHER, SELFPAY | LOC: RSP 12:25 | PROVIDERS: ATTENDING PHYSICIAN Family Medicine | DX: J44.9 Chronic obstructive pulmonary disease, unspecified (principal) | CPT/HCPCS: 94060; 94727; 94729 ==